=== PATIENT | male | born 1945 | race Caucasian/White ===

== ENCOUNTER 2017-05-04 00:35 | Inpatient (IN) | payer MEDICARE, MEDICAID ==
[2017-05-04] VITALS (21 sets, daily range): BP systolic 101–138; BP diastolic 50–71; PULSE 60–96; RESP 16–21; TEMP 98.2–100.4; O2SAT 93–98
[~2017-05-04] VITALS: Ht 180.3 cm; Wt 76.5 kg
[~2017-05-04 00:35] MED LIST: 1-ME1LIQ PO; ATEN1TAB73 PO; ENAL20TA81 PO; GEMF600 PO; GLUCTAB PO; HYDR-2768 PO; NORC7.5T PO; NOVO7030P2 SQ; SAXA5TAB2 PO
[2017-05-04] MEDS ORDERED: NOVO7030P2 SQ (01:08)
[2017-05-04] MEDS ORDERED: HYDR12.57 PO (01:08)
[2017-05-04] MEDS ORDERED: METF1000 PO (01:08)
[2017-05-04] MEDS ORDERED: ENAL20TA PO (01:08)
[2017-05-04] MEDS ORDERED: HEPARIN SODIUM - SQ 10,000 UNITS/ML VIAL SQ ONE (01:15)
[2017-05-04] MEDS ORDERED: HEPARIN-D5W 25,000 U/250 ML 250 ML IV PRN (01:15)
[2017-05-04] MEDS ORDERED: ASPIRIN 81 MG CHEW TAB CHEW ONE (01:15)
[2017-05-04] MEDS ORDERED: NITROGLYCERIN 2% OINT 1 GM PACKET TOPICAL ONE (01:15)
[2017-05-04] MEDS ORDERED: VANCOMYCIN INJ 1,000 MG in SODIUM CHLOR 0.9% 250 ML INJ 250 ML IV ONE (01:45)
[2017-05-04 01:47] LABS: HEMATOCRIT 41.2 % (39.0-51.0); MEAN CELL VOLUME 84.4 FL (80.0-100.0); MEAN CORPUSCULAR HEMOGLOBIN 28.8 PG (27.0-34.0); MEAN CORPUSCULAR HGB CONC 34.1 % (32.0-36.0); PLATELET COUNT 420 TH/MM3 (150-450); RED BLOOD COUNT 4.88 MIL/MM3 (4.50-5.90); RED CELL DISTRIBUTION WIDTH 14.2 % (11.6-17.2); REVIEW FLAG FINAL; WHITE BLOOD COUNT 18.5 TH/MM3 (4.0-11.0)
[2017-05-04 02:03] LABS: APTT (PATIENT) 28.6 SEC (24.3-30.1); INTERNATIONAL NORMALIZED RATIO 1.2 RATIO
[2017-05-04 02:04] LABS: BICARBONATE 30.9 MEQ/L (21.0-32.0); POTASSIUM 3.1 MEQ/L (3.5-5.1)
[2017-05-04] MEDS: HEPARIN-D5W 25,000 U/250 ML 250 ML IV PRN (03:28)
[2017-05-04] MEDS ORDERED: HEPARIN SODIUM - IV 2,000 UNITS/2 ML VIAL IV ONE (03:30)
--- NOTE | 2017-05-04 03:42 | PD ---
HPI Chief Complaint: Laceration/Skin Injury Time Seen by Provider: 00:47 Travel History International Travel<30 days: No Contact w/Intl Traveler<30days: No Traveled to known affect area: No History of Present Illness HPI Patient is a 71-year-old male with days venous-stasis pressure ulcer on the lateral aspect of his left ankle there is redness and an eschar where it's trying to heal as well as erythema all around the entire lower [place] area lateral aspect lower left. He called paramedics himself tonight because he had severe pain in his left ankle it was severe lightening shooting he described it. He denies chest pain he denies redness of breath he denies diaphoresis he denies nausea vomiting. On arrival his EKG is done with ST elevations in inferior leads. I immediately called the head silverman Dr. Francisco and he feels that it is not criteria for a STEMI and the patient is completely pain-free I go back to the patient's bedside and go to every possible abdomen pain chest pain back pain shortness of breath diaphoresis he denies all he has no symptoms of having acute MT PFSH Past Medical History COPD: Yes Diabetes: Yes Patient Takes Glucophage: Yes (METFORMIN 05/03/17 PM) Diminished Hearing: No Genitourinary: Yes (POLYNEPHRITIS ) Hypertension: Yes Immunizations Current: Yes Tetanus Vaccination: Unknown Influenza Vaccination: No Past Surgical History Other Surgery: Yes (SKIN CANCER REMOVAL SURGERY) Social History Alcohol Use: No Tobacco Use: Yes (2.5 PPD) Substance Use: No Allergies-Medications (Allergen,Severity, Reaction): Coded Allergies: codeine (Unverified Allergy, Severe, Rash, 05/04/17) propoxyphene (Unverified Allergy, Severe, Nausea/Vomiting, 05/04/17) acetaminophen (Verified Adverse Reaction, Mild, Tachycardia, 05/05/17) Patient given dose had SOB and Tachycardia that passed, previously got dose 05/04 AM without any reaction, 05/05 AM experienced the SOB and Tachycardia Reported Meds & Prescriptions Reported Meds & Active Scripts Active Reported Tizanidine (Tizanidine HCl) 4 Mg Cap 4 Mg PO HS Glipizide 5 Mg Tab 2.5 Mg PO BIDAC Take 30 minutes before a meal Tramadol (Tramadol HCl) 50 Mg Tab 50 Mg PO BID PRN Hydrochlorothiazide 25 Mg Tab 25 Mg PO DAILY Amlodipine (Amlodipine Besylate) 10 Mg Tab 10 Mg PO DAILY Novolin 70-30 Inj (Insulin Human Isoph/Insulin Regular) 1,000 Unit/10 Ml Vial 30 Units SQ BID Enalapril (Enalapril Maleate) 20 Mg Tab 20 Mg PO BID Metformin (Metformin HCl) 1,000 Mg Tab 1,000 Mg PO BIDPC Review of Systems Except as stated in HPI: all other systems reviewed are Neg HENT: No: Headaches, Vertigo, Lightheadedness, Sore Throat Cardiovascular: No: Chest Pain or Discomfort, Palpitations, Irregular Rhythm Respiratory: No: Cough, Shortness of Breath Gastrointestinal: No: Nausea, Vomiting, Diarrhea Musculoskeletal: No: Myalgias (patient only complains of lower left leg pain shooting burning pain) Physical Exam Narrative GENERAL: Patient is [id number] he has no pain he is asked multiple times. Chest pain abdomen pain back pain denies he does not appear to be any distress SKIN: Warm and dry. Ears a stasis pressure ulcer on the lateral aspect of his left lateral malleolus 3 cm round with erythema around it induration HEAD: Atraumatic. Normocephalic. EYES: Pupils equal and round. No scleral icterus. No injection or drainage. ENT: No nasal bleeding or discharge. Mucous membranes pink and moist. NECK: Trachea midline. No JVD. CARDIOVASCULAR: Regular rate and rhythm. RESPIRATORY: No accessory muscle use. Clear to auscultation. Breath sounds equal bilaterally. GASTROINTESTINAL: Abdomen soft, non-tender, nondistended. Hepatic and splenic margins not palpable. MUSCULOSKELETAL: Extremities left lateral malleolus has a pressure ulcer with a healing eschar in the center and redness indurated around it possible sialitis without clubbing, cyanosis, or edema. No obvious deformities. NEUROLOGICAL: Awake and alert. No obvious cranial nerve deficits. Motor grossly within normal limits. Five out of 5 muscle strength in the arms and legs. Normal speech. PSYCHIATRIC: Appropriate mood and affect; insight and judgment normal. Data Data Last Documented VS Vital Signs Date Time Temp Pulse Resp B/P (MAP) Pulse Ox O2 Delivery O2 Flow Rate FiO2 05/04/17 03:15 84 18 118/56 (76) 97 Room Air 05/04/17 00:37 99.8 Orders Orders Nitroglycerin 2% Oint (Nitroglycerin 2% (05/04/17 01:15) Aspirin Chew (Aspirin Chew) (05/04/17 01:15) Heparin Inj (Heparin Inj) (05/04/17 01:15) Heparin-D5w 25,000 U/250 Ml (Heparin-D5w (05/04/17 01:15) Act Partial Throm Time (Ptt) (05/04/17 01:05) Prothrombin Time / Inr (Pt) (05/04/17 01:05) Cbc No Diff, Includes Plts (05/04/17 01:05) Cbc No Diff, Includes Plts (05/07/17 06:00) Act Partial Throm Time (Ptt) (05/04/17 08:05) Occult Blood (Hemoccult) Stool (05/04/17 01:05) Basic Metabolic Panel (Bmp) (05/04/17 01:26) Troponin I (05/04/17 01:26) Creatine Kinase (Cpk) (05/04/17 01:26) Vancomycin Inj (Vancomycin Inj) (05/04/17 01:45) Heparin-D5w 25,000 U/250 Ml (Heparin-D5w (05/04/17 01:45) Occult Blood (Hemoccult) Stool (05/04/17 01:32) Heparin Inj (Heparin Inj) (05/04/17 03:30) Electrocardiogram (05/04/17 ) Troponin I (05/04/17 04:13) Admit Order (Ed Use Only) (05/04/17 04:25) Labs Laboratory Tests Test 05/04/17 01:20 05/04/17 04:19 White Blood Count 18.5 TH/MM3 Red Blood Count 4.88 MIL/MM3 Hemoglobin 14.0 GM/DL Hematocrit 41.2 % Mean Corpuscular Volume 84.4 FL Mean Corpuscular Hemoglobin 28.8 PG Mean Corpuscular Hemoglobin Concent 34.1 % Red Cell Distribution Width 14.2 % Platelet Count 420 TH/MM3 Mean Platelet Volume 8.8 FL Prothrombin Time 12.0 SEC Prothromb Time International Ratio 1.2 RATIO Activated Partial Thromboplast Time 28.6 SEC Blood Urea Nitrogen 24 MG/DL Creatinine 0.89 MG/DL Random Glucose 203 MG/DL Calcium Level 8.1 MG/DL Sodium Level 136 MEQ/L Potassium Level 3.1 MEQ/L Chloride Level 97 MEQ/L Carbon Dioxide Level 30.9 MEQ/L Anion Gap 8 MEQ/L Estimat Glomerular Filtration Rate 85 ML/MIN Total Creatine Kinase 62 U/L Troponin I 1.26 NG/ML 1.28 NG/ML [facility] Medical Decision Making Medical Screen Exam Complete: Yes Emergency Medical Condition: Yes Differential Diagnosis Patient has a venous stasis ulcer pressure ulcer with possible cellulitis however EKG done perchance shows inferior elevation in 3 and aVF with reciprocal depressions in 1 and aVL and V5 V6 correlating with a STEMI inferior lead I paged the intensive [facility] [employer] field inspector interventionalists who says that he does not feel this is criteria for catheter I heparinized the patient and give him aspirin and nitroglycerin to treat him medically to relieve any possible coagulations that are propagating and his vessels to his heart. Troponin returns at 1.26 I have had heparin and nitro and ASA given immediately and will repeat EKG and Trop admit CIC and call Francisco back to up date Narrative Course Patient has a venous stasis ulcer pressure ulcer with possible cellulitis however EKG done perchance shows inferior elevation in 3 and aVF with reciprocal depressions in 1 and aVL and V5 V6 correlating with a STEMI inferior lead I paged the intensive [facility] [employer] field inspector interventionalists who says that he does not feel this is criteria for catheter I heparinized the patient and give him aspirin and nitroglycerin to treat him medically to relieve any possible coagulations that are propagating and his vessels to his heart. Troponin returns at 1.26 I have had heparin and nitro and ASA given immediately and will repeat EKG and Trop admit CIC and call Francisco back to up date Critical Care Narrative EKG done perchance shows inferior elevation in 3 and aVF with reciprocal depressions in 1 and aVL and V5 V6 correlating with a STEMI inferior lead I paged the intensive [facility] [employer] field inspector interventionalists who says that he does not feel this is criteria for catheter I heparinized the patient and give him aspirin and nitroglycerin to treat him medically to relieve any possible coagulations that are propagating and his vessels to his heart. Troponin returns at 1.26 I have had heparin and nitro and ASA given immediately and will repeat EKG and Trop admit CIC and call Francisco back to up date Diagnosis Primary Impression: Acute myocardial infarction Qualified Codes: I21.3 - ST elevation (STEMI) myocardial infarction of unspecified site Additional Impressions: Venous stasis ulcer Qualified Codes: I83.023 - Varicose veins of left lower extremity with ulcer of ankle; L97.321 - Non-pressure chronic ulcer of left ankle limited to breakdown of skin Pressure ulcer Qualified Codes: L89.529 - Pressure ulcer of left ankle, unspecified stage Admitting Information Admitting Physician Requests: it Raphael Vieira MD May 04, 2017 03:42
[2017-05-04] MEDS ORDERED: ATORVASTATIN 80 MG TAB PO ONE (08:15)
[2017-05-04] MEDS ORDERED: SODIUM CHLORIDE 0.9% FLUSH 10 ML FLUSH IV FLUSH PRN (08:15)
[2017-05-04] MEDS ORDERED: POTASSIUM CHLORIDE 25 MEQ EFFERVESCENT TAB PO ONE (08:15)
[2017-05-04] MEDS ORDERED: MAGNESIUM HYDROXIDE SUSP 30 ML CUP PO PRN (08:15)
[2017-05-04] MEDS ORDERED: ONDANSETRON HCL 4 MG/2 ML VIAL IVP PRN (08:15)
[2017-05-04] MEDS ORDERED: NALOXONE HCL 0.4 MG/ML AMP IV PUSH PRN (08:15)
[2017-05-04] MEDS ORDERED: BISACODYL 10 MG SUPP RECTAL PRN (08:15)
[2017-05-04] MEDS ORDERED: SENNOSIDES 8.6 MG TAB PO PRN (08:15)
[2017-05-04] MEDS ORDERED: GLUCAGON 1 MG/ML VIAL OTHER PRN (08:15)
[2017-05-04] MEDS ORDERED: LACTULOSE SYRUP 20 GM/30 ML CUP PO PRN (08:15)
[2017-05-04] MEDS ORDERED: NITROGLYCERIN 0.4 MG SL 25 TABS/BTL SL PRN (08:15)
[2017-05-04] MEDS ORDERED: DEXTROSE 50% IN WATER 50 ML VIAL(D50) IV PUSH PRN (08:15)
[2017-05-04] MEDS ORDERED: MORPHINE SULFATE 2 MG/ML INJ IV PUSH PRN (08:15)
--- NOTE | 2017-05-04 08:37 | RADRPT ---
EXAM DATE/TIME: 05/04/2017 08:29 [facility] COMPARISON: No previous studies available for comparison. INDICATIONS : Fever. MEDICAL HISTORY : Chronic obstructive pulmonary disease. Hypertension Diabetes. SURGICAL HISTORY : Left hand surgery. ENCOUNTER: Initial ACUITY: 1 day PAIN SCORE: Non-responsive. LOCATION: Bilateral chest FINDINGS: A single view of the chest demonstrates the lungs to be symmetrically aerated without evidence of mas s, infiltrate or effusion. The cardiomediastinal contours are unremarkable. Osseous structures are intact. CONCLUSION: 1. Negative portable chest. Alexander Posada MD on May 04, 2017 at 8:35 Board Certified Radiologist. This report was verified electronically.
[2017-05-04] MEDS: SODIUM CHLORIDE 0.9% FLUSH 10 ML FLUSH IV FLUSH SCH ×2 (08:55→21:00)
[2017-05-04 09:23] LABS: APTT (PATIENT) 30.5 SEC (24.3-30.1)
[2017-05-04] MEDS: SODIUM CHLOR 0.9% 1000 ML INJ 1,000 ML IV SCH ×2 (09:31→18:02)
--- NOTE | 2017-05-04 09:49 | PD.CONS ---
HPI Consult Requested By Primary Care Physician Chito Wahl MD History of Present Illness 71-year-old male with a past medical history of DM, HTN who presented for left lower extremity swelling, ulcer, and pain. He is found to have EKG changes in the ED and STEMI fig washer was called, who recommended against any alert as patient has no anginal symptoms. The patient denies any chest pain, shortness of breath, nausea, diaphoresis. Doesn't exert himself much due to chronic back and left lower extremity pain. The patient denies any history of heart disease. He does continue to smoke. (Solomon Henderson) Review of Systems Negative except as stated in the history of present illness (Solomon Henderson) Past Family Social History Allergies: Coded Allergies: acetaminophen (Unverified Allergy, Severe, Nausea/Vomiting, 05/04/17) codeine (Unverified Allergy, Severe, Rash, 05/04/17) propoxyphene (Unverified Allergy, Severe, Nausea/Vomiting, 05/04/17) Past Medical History Hypertension Diabetes mellitus Past Surgical History Skin cancer removal Reported Medications Reported Meds & Active Scripts Active Reported Novolin 70-30 Inj (Insulin Human Isoph/Insulin Regular) 1,000 Unit/10 Ml Vial 30 Units SQ BID Enalapril (Enalapril Maleate) 20 Mg Tab 20 Mg PO BID Hydrochlorothiazide 12.5 Mg Cap 12.5 Mg PO DAILY Metformin (Metformin HCl) 1,000 Mg Tab 1,000 Mg PO BIDPC Active Ordered Medications Current Medications Medications (Trade) Dose Ordered Sig/Tatyana Route Start Time Stop Time Status Last Admin Heparin Sodium/ Dextrose 250 ml @ 9 mls/hr TITRATE PRN IV 05/04/17 01:45 05/04/17 03:28 Sodium Chloride 1,000 ml @ 100 mls/hr Q10H IV 05/04/17 08:02 05/04/17 09:31 (NS Flush) 2 ml UNSCH PRN IV FLUSH 05/04/17 08:15 (NS Flush) 2 ml BID IV FLUSH 05/04/17 09:00 (Tylenol) 650 mg Q4H PRN PO 05/04/17 08:15 (Zofran Inj) 4 mg Q6H PRN IVP 05/04/17 08:15 (Narcan Inj) 0.4 mg UNSCH PRN IV PUSH 05/04/17 08:15 (Kate-Colace) 1 tab BID PO 05/04/17 09:00 (Milk Of Magnesia Liq) 30 ml Q12H PRN PO 05/04/17 08:15 (Senokot) 17.2 mg Q12H PRN PO 05/04/17 08:15 (Dulcolax Supp) 10 mg DAILY PRN RECTAL 05/04/17 08:15 (Lactulose Liq) 30 ml DAILY PRN PO 05/04/17 08:15 (Morphine Inj) 2 mg Q3H PRN IV PUSH 05/04/17 08:15 (Ecotrin Ec) 81 mg DAILY PO 05/04/17 09:00 (Nitrostat Sl) 0.4 mg Q5M PRN SL 05/04/17 08:15 (D50w (Vial) Inj) 50 ml UNSCH PRN IV PUSH 05/04/17 08:15 (Glucagon Inj) 1 mg UNSCH PRN OTHER 05/04/17 08:15 (NovoLOG SUPPLEMENTAL SCALE) 1 ACHS SLIDING SCALE SQ 05/04/17 12:00 (Duoneb Neb) 1 ampule Q6HR NEB PRN NEB 05/04/17 08:15 Family History Denies family history of heart disease Social History Tobacco abuse (Solomon Henderson) Physical Exam Vital Signs Vital Signs Date Time Temp Pulse Resp B/P (MAP) Pulse Ox O2 Delivery O2 Flow Rate FiO2 05/04/17 09:01 87 16 113/56 (75) 98 05/04/17 05:00 88 20 104/50 (68) 96 Room Air 05/04/17 03:15 84 18 118/56 (76) 97 Room Air 05/04/17 00:37 99.8 94 21 138/71 (93) 97 Physical Exam GENERAL: Well-developed well-nourished. In no acute distress. NECK: No carotid bruits. No JVD. CARDIOVASCULAR: Regular rate and rhythm. No murmur appreciated. RESPIRATORY: No accessory muscle use. Clear to auscultation. Breath sounds equal bilaterally. MUSCULOSKELETAL: Left lower extremity with venous stasis skin changes, left ankle ulcer, 1+ edema, nonpalpable pedal and popliteal pulses. Right lower extremity with 2+ lower extremity pulses and no edema. NEUROLOGICAL: Awake and alert. Normal speech. Laboratory Laboratory Tests Test 05/04/17 01:20 05/04/17 04:19 05/04/17 08:38 05/04/17 09:25 White Blood Count 18.5 Red Blood Count 4.88 Hemoglobin 14.0 Hematocrit 41.2 Mean Corpuscular Volume 84.4 Mean Corpuscular Hemoglobin 28.8 Mean Corpuscular Hemoglobin Concent 34.1 Red Cell Distribution Width 14.2 Platelet Count 420 Mean Platelet Volume 8.8 Prothrombin Time 12.0 Prothromb Time International Ratio 1.2 Activated Partial Thromboplast Time 28.6 30.5 Blood Urea Nitrogen 24 Creatinine 0.89 Random Glucose 203 Calcium Level 8.1 Sodium Level 136 Potassium Level 3.1 Chloride Level 97 Carbon Dioxide Level 30.9 Anion Gap 8 Estimat Glomerular Filtration Rate 85 Total Creatine Kinase 62 Troponin I 1.26 1.28 Lactic Acid Level 1.4 (Solomon Henderson) Result Diagram: 05/04/17 0120 05/04/17 0120 Imaging Last Impressions Chest X-Ray 05/04/17 0000 Signed Impressions: Service Date/Time: Saturday, May 04, 2017 08:29 - CONCLUSION: 1. Negative portable chest. Alexander Posada MD (Solomon Henderson) Assessment and Plan Assessment and Plan 71-year-old male with a past medical history of DM, HTN who presented for left lower extremity swelling, ulcer, and pain. He is found to have EKG changes in the ED. EKG changes: Nonspecific changes not consistent with STEMI especially with no concerning anginal symptoms. Check echocardiogram to evaluate for any wall motion abnormalities. Troponin elevation: Troponin 1.2. Unclear etiology. Consider angiogram. Continue heparin for now. LLE ulcer: Diminished left lower extremity pulses, poor healing wound, likely underlying PAD. At this time we'll plan on peripheral study on Saturday. Discussed Condition With Dr. Melchor, Dr. Sharp (Solomon Henderson) Assessment and Plan abnormal EKG NSTEMI no chest pain + infection LLE poor circulation with PAD 2d echo continue IV antibiotics will need C and probable peripheral angiogram. tenatively Tues am to make sure no active infection. (Jonny Melchor MD) Solomon Henderson May 04, 2017 09:49 Jonny Melchor MD May 04, 2017 18:30
[2017-05-04 09:57] LABS: APTT (PATIENT) 40.3 SEC (24.3-30.1)
[2017-05-04 10:04] LABS: CALCIUM-PROTEIN CORRECTED 8.2 MG/DL (8.5-10.1); HDL CHOLESTEROL 24.1 MG/DL (40.0-60.0); LDL CHOLESTEROL 78 MG/DL (0-99)
[2017-05-04 10:46] LABS: BLOOD, URINE NEG (NEG); COMMENT (UR) CULT NOT INDICATED; CULTURE IF INDICATED CULT NOT INDICATED; GLUCOSE,URINE NEG (NEG); KETONE, URINE NEG (NEG); MUCUS URINE FEW /lpf (OCC); NITRITE,URINE NEG (NEG); URINE COLOR YELLOW (YELLW/STRAW)
[2017-05-04] MEDS: DOCUSATE SODIUM 50 MG/SENNA 8.6 MG TAB PO SCH ×2 (11:55→21:30)
[2017-05-04] MEDS: ASPIRIN EC 81 MG TABEC PO SCH (11:55)
[2017-05-04] MEDS: ACETAMINOPHEN 325 MG TAB PO PRN (11:59)
[2017-05-04] MEDS: INSULIN ASPART SUPPLEMENTAL SCALE SQ SCH ×3 (12:00→21:00)
[2017-05-04 12:59] LABS: HEMOGLOBIN A1b 2.5 %; HEMOGLOBIN Ao 80.1 %; HEMOGLOBIN LA1C 3.1 %; HEMOGLOBIN P3 4.5 %
--- NOTE | 2017-05-04 13:03 | EKG ---
Date Performed: 05/04/2017 Time Performed: 00:44:33 PTAGE: 71 years EKG: Normal Sinus rhythm with first degree AV block with occassional PACs ST elevation with Q-waves seen in leads V3 and aVF, cannot exclude that this is an acute inferior myocardial infarction There is ST depression in leads V1 and aVL, which may be reciprocal changes and there is T-wave inversions anterolaterally Anterosept al myocardial infarction of undetermined age PREVIOUS TRACING 09/13/11 Since previous tracing, the change of inferior myocardial infar ction of undetermined age but possibly acute are new changes. The ST-T changes are new. R-forces are worsened in leads V1-V3 compared to previous tracing and appears to be anterior myocardial infarction of undetermined age. Clinical correlation is recommended. DOCTOR: Karan Jeong Interpretating Date/Time 05/04/2017 13:02:36
--- NOTE | 2017-05-04 13:06 | EKG ---
Date Performed: 05/04/2017 Time Performed: 03:37:39 PTAGE: 71 years EKG: Sinus rhythm with first degree AV block with PACs Anteroseptal myocardial infarction of undetermined age Inferior myocardial infarction with some ST elevation seen in lead V3, aVF and Q-wave changes in leads V2, an d ST depression and T-wave changes in leads V1 and aVF, which may be reciprocal changes of acute myoc ardial infarction. PREVIOUS TRACING : 05/04/2017 Since previous tracing, T-wave inversions anterolaterally i n leads V4-V6 are more prominent. Clinical correlation is recommended. DOCTOR: Karan Jeong Interpretating Date/Time 05/04/2017 13:05:24
[2017-05-04] MEDS ORDERED: HYDR25TA5 PO (15:08)
[2017-05-04] MEDS ORDERED: GLIP5TAB8 PO (15:08)
[2017-05-04] MEDS ORDERED: AMLO10TA2 PO (15:08)
[2017-05-04] MEDS ORDERED: TRAM50TA PO (15:08)
[2017-05-04] MEDS ORDERED: TIZA4CAP3 PO (15:09)
[2017-05-04] MEDS ORDERED: VANCOMYCIN INJ 1,150 MG in SODIUM CHLOR 0.9% 250 ML INJ 250 ML IV SCH (15:15)
[2017-05-04] MEDS ORDERED: Vancomycin Consult Pharmacy 1 EA OTHER SCH (15:15)
[2017-05-04 15:46] LABS: MAGNESIUM 2.3 MG/DL (1.5-2.5)
--- NOTE | 2017-05-04 16:05 | RADRPT ---
EXAM DATE/TIME: 05/04/2017 15:27 [facility] COMPARISON: No previous studies available for comparison. INDICATIONS : Ankle pain. MEDICAL HISTORY : Diabetes mellitus type II. Chronic obstructive pulmonary disease. Hypertension. SURGICAL HISTORY : Left hand surgery. ENCOUNTER: Initial ACUITY: 1 day PAIN SCORE: 10/10 LOCATION: Left ankle. FINDINGS: Three view exam was performed of the left ankle. The bony structures are in normal alignment. No ev idence of fracture, dislocation, or soft tissue swelling. There some mild degenerative changes. The a nkle mortise is intact. No radiopaque foreign bodies are seen. Bony mineralization is normal. CONCLUSION: Mild degenerative type changes. Otherwise, unremarkable exam for patient's age. Lee Yao MD on May 04, 2017 at 16:03 Board Certified Radiologist. This report was verified electronically.
--- NOTE | 2017-05-04 16:09 | HHI.HP ---
HPI Service [facility] Hospitalists Primary Care Physician Chito Wahl MD Admission Diagnosis myocardial ischemia Diagnoses: Chief Complaint: Left ankle pain, open sore and redness Increasing generalized weakness Travel History International Travel<30 Days: No Contact w/Intl Traveler <30 Da: No Traveled to Known Affected Are: No Sepsis Criteria SIRS Criteria (2 or more): Heart rate over 90, WBC > 87564, < 4000 or > 10% bands Sepsis Criteria (SIRS+source): Infect source susp/known Criteria Outcome: Meets sepsis criteria History of Present Illness Written by Zabrina Donahue, acting as scribe for Dr. Sharp on 05/04/17 at 15: 36. This is a 71-year-old male with a past medical history significant for hypertension, diabetes and COPD with ongoing tobacco use who presents to [facility] ED with complaints of worsening infection in the left ankle. Patient states he began having pain and redness in the left ankle about 3 weeks ago that has been steadily increasing. He now has an open sore over the outside aspect of the ankle. He denies any previous history of a diabetic ulcer. He denies any injury to the ankle. He reports he normally ambulates unassisted but is having more difficulty getting around due to increasing weakness. Patient states he has not be eating well for the past several months and has begun drinking up to 7 cups of coffee daily. He denies any alcohol use. He smokes 2 packs of cigarettes a day. He does endorse night sweats. Incidentally while in the ED, patient was noted to have ST elevations in the inferior leads on EKG. Patient was noted to have an elevated troponin of 1.26. manager shipping Dr. 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 Patient was started on a heparin drip. He denies any complaints of chest pain, chest tightness or shortness of breath. Patient denies any cardiac history. He is on oxycodone for chronic pain and has opioid-induced constipation, but reports good bowel movements recently. Review of Systems Except as stated in HPI: all other systems reviewed are Neg Past Family Social History Past Medical History Hypertension Diabetes COPD with ongoing tobaccoism Past Surgical History Excision of melanoma from face Reported Medications Novolin 70-30 Inj (Insulin Human Isoph/Insulin Regular) 1,000 Unit/10 Ml Vial 30 Units SQ BID Enalapril (Enalapril Maleate) 20 Mg Tab 20 Mg PO BID Hydrochlorothiazide 12.5 Mg Cap 12.5 Mg PO DAILY Metformin (Metformin HCl) 1,000 Mg Tab 1,000 Mg PO BIDPC Allergies: Coded Allergies: acetaminophen (Unverified Allergy, Severe, Nausea/Vomiting, 05/04/17) codeine (Unverified Allergy, Severe, Rash, 05/04/17) propoxyphene (Unverified Allergy, Severe, Nausea/Vomiting, 05/04/17) Active Ordered Medications Current Medications Medications (Trade) Dose Ordered Sig/Tatyana Route Start Time Stop Time Status Last Admin Heparin Sodium/ Dextrose 250 ml @ 9 mls/hr TITRATE PRN IV 05/04/17 01:45 05/04/17 03:28 Sodium Chloride 1,000 ml @ 100 mls/hr Q10H IV 05/04/17 08:02 05/04/17 09:31 (NS Flush) 2 ml UNSCH PRN IV FLUSH 05/04/17 08:15 (NS Flush) 2 ml BID IV FLUSH 05/04/17 09:00 (Tylenol) 650 mg Q4H PRN PO 05/04/17 08:15 05/04/17 11:59 (Zofran Inj) 4 mg Q6H PRN IVP 05/04/17 08:15 (Narcan Inj) 0.4 mg UNSCH PRN IV PUSH 05/04/17 08:15 (Kate-Colace) 1 tab BID PO 05/04/17 09:00 05/04/17 11:55 (Milk Of Magnesia Liq) 30 ml Q12H PRN PO 05/04/17 08:15 (Senokot) 17.2 mg Q12H PRN PO 05/04/17 08:15 (Dulcolax Supp) 10 mg DAILY PRN RECTAL 05/04/17 08:15 (Lactulose Liq) 30 ml DAILY PRN PO 05/04/17 08:15 (Morphine Inj) 2 mg Q3H PRN IV PUSH 05/04/17 08:15 (Ecotrin Ec) 81 mg DAILY PO 05/04/17 09:00 05/04/17 11:55 (Nitrostat Sl) 0.4 mg Q5M PRN SL 05/04/17 08:15 (D50w (Vial) Inj) 50 ml UNSCH PRN IV PUSH 05/04/17 08:15 (Glucagon Inj) 1 mg UNSCH PRN OTHER 05/04/17 08:15 (NovoLOG SUPPLEMENTAL SCALE) 1 ACHS SLIDING SCALE SQ 05/04/17 12:00 (Duoneb Neb) 1 ampule Q6HR NEB PRN NEB 05/04/17 08:15 Pharmacy Profile Note 0 ml @ 0 mls/hr UNSCH OTHER 05/04/17 15:15 Vancomycin HCl 1150 mg/Sodium Chloride 261.5 ml @ 250 mls/hr Q12H IV 05/04/17 15:15 UNV Piperacillin Sod/ Tazobactam Sod 100 ml @ 200 mls/hr Q6HR IV 05/04/17 18:00 (Norvasc) 10 mg DAILY PO 05/05/17 09:00 (Vasotec) 20 mg BID PO 05/04/17 21:00 (Zanaflex) 4 mg HS PO 05/04/17 21:00 (NovoLIN 70/30 INJ) 15 units BID@08,17 SQ 05/04/17 17:00 Family History Patient denies any significant family medical history Social History Patient has a history of tobacco use of 2 packs per day. He denies any alcohol use or illicit drugs. Patient states he lives alone. Physical Exam Vital Signs Vital Signs Date Time Temp Pulse Resp B/P (MAP) Pulse Ox O2 Delivery O2 Flow Rate FiO2 05/04/17 15:09 98.2 60 18 120/64 (82) 94 05/04/17 13:03 88 05/04/17 12:00 86 05/04/17 11:56 100.4 88 116/60 (78) 94 05/04/17 11:00 87 05/04/17 10:14 99.3 84 19 117/56 (76) 93 05/04/17 09:01 87 16 113/56 (75) 98 05/04/17 05:00 88 20 104/50 (68) 96 Room Air 05/04/17 03:15 84 18 118/56 (76) 97 Room Air 12/9/17 00:37 99.8 94 21 138/71 (93) 97 Physical Exam GENERAL: This is a well-nourished, well-developed patient, in no apparent distress. Awake and alert. SKIN: Warm and slightly diaphoretic. (+)open wound over the left lateral malleolus with central eschar, no active drainage noted. Circumferential erythema extending from the mid foot to mid tibia. HEAD: Atraumatic. Normocephalic. No temporal or scalp tenderness. EYES: Pupils equal round and reactive. Extraocular motions intact. No scleral icterus. No injection or drainage. ENT: Nose without bleeding or purulent drainage. Throat without erythema, tonsillar hypertrophy or exudate. Uvula midline. Airway patent. NECK: Trachea midline. No lymphadenopathy. Supple, nontender, no meningeal signs. CARDIOVASCULAR: Regular rate and rhythm without murmurs, gallops, or rubs. RESPIRATORY: Clear to auscultation. Breath sounds equal bilaterally. No wheezes , rales, or rhonchi. GASTROINTESTINAL: Abdomen soft, non-tender, nondistended. No hepato-splenomegaly , or palpable masses. No guarding. MUSCULOSKELETAL: Extremities without clubbing, cyanosis, or edema. No joint tenderness, effusion, or edema noted. NEUROLOGICAL: Awake and alert. Able to move all extremities spontaneously. Generalized weakness. No focal neurologic findings appreciated. Normal speech. Laboratory Laboratory Tests Test 05/04/17 01:20 05/04/17 04:19 05/04/17 08:38 05/04/17 09:25 White Blood Count 18.5 Red Blood Count 4.88 Hemoglobin 14.0 Hematocrit 41.2 Mean Corpuscular Volume 84.4 Mean Corpuscular Hemoglobin 28.8 Mean Corpuscular Hemoglobin Concent 34.1 Red Cell Distribution Width 14.2 Platelet Count 420 Mean Platelet Volume 8.8 Prothrombin Time 12.0 Prothromb Time International Ratio 1.2 Activated Partial Thromboplast Time 28.6 30.5 40.3 Blood Urea Nitrogen 24 Creatinine 0.89 Random Glucose 203 Calcium Level 8.1 7.7 Sodium Level 136 Potassium Level 3.1 Chloride Level 97 Carbon Dioxide Level 30.9 Anion Gap 8 Estimat Glomerular Filtration Rate 85 Total Creatine Kinase 62 Troponin I 1.26 1.28 1.27 Lactic Acid Level 1.4 Hemoglobin A1c 7.3 Protein Corrected Calcium 8.2 Total Protein 6.2 Triglycerides Level 105 Cholesterol Level 123 LDL Cholesterol 78 HDL Cholesterol 24.1 Cholesterol/HDL Ratio 5.10 Test 05/04/17 10:15 05/04/17 13:50 Urine Color YELLOW Urine Turbidity HAZY Urine pH 5.0 Urine Specific [place] 1.016 Urine Protein 100 Urine Glucose (UA) NEG Urine Ketones NEG Urine Occult Blood NEG Urine Nitrite NEG Urine Bilirubin NEG Urine Urobilinogen LESS THAN 2.0 Urine Leukocyte Esterase NEG Urine RBC LESS THAN 1 Urine WBC 1 Urine Mucus FEW Microscopic Urinalysis Comment CULT NOT INDICATED Date/Time Source Procedure Growth Status 05/04/17 04:35 Blood Peripheral Aerobic Blood Culture Pending Received 05/04/17 04:35 Blood Peripheral Anaerobic Blood Culture Pending Received Result Diagram: 05/04/17 0120 05/04/17 0120 Imaging Last Impressions Chest X-Ray 05/04/17 0000 Signed Impressions: Service Date/Time: Thursday, May 04, 2017 08:29 - CONCLUSION: 1. Negative portable chest. MD Clover Serna VTE Risk Assessment Capjo-anni VTE Risk Assessment: Mod/High Risk (score >= 2) VTE [facility] Contraindication: LE injury/wound Caprini Risk Assessment Model Point Value = 1 Point Value = 2 Point Value = 3 Point Value = 5 Age 41-60 Minor surgery BMI > 25 kg/m2 Swollen legs Varicose veins or History of unexplained or recurrent spontaneous Oral contraceptives or hormone replacement Sepsis (< 1 month) Serious lung disease, including pneumonia (< 1 month) Abnormal pulmonary function Acute myocardial infarction Congestive heart failure (< 1 month) History of inflammatory bowel disease Medical patient at bed rest Age 61-74 Arthroscopic surgery Major open surgery (> 45 min) Laparoscopic surgery (> 45 min) Malignancy Confined to bed (> 72 hours) Immobilizing plaster cast Central venous access Age >= 75 History of VTE Family history of VTE Factor V Leiden Prothrombin [id number] Lupus anticoagulant Anticardiolipin antibodies Elevated serum homocysteine Heparin-induced thrombocytopenia Other congenital or acquired thrombophilia Stroke (< 1 month) Elective arthroplasty Hip, pelvis, or leg fracture Acute spinal cord injury (< 1 month) Prophylaxis Regimen Total Risk Factor Score Risk Level Prophylaxis Regimen 0-1 Low Early ambulation 2 Moderate Order ONE of the following: *Sequential Compression Device (SCD) *Heparin 5000 units SQ BID 3-4 Higher Order ONE of the following medications: *Heparin 5000 units SQ TID *Enoxaparin/Lovenox 40 mg SQ daily (WT < 150 kg, CrCl > 30 mL/min) *Enoxaparin/Lovenox 30 mg SQ daily (WT < 150 kg, CrCl > 10-29 mL/min) *Enoxaparin/Lovenox 30 mg SQ BID (WT < 150 kg, CrCl > 30 mL/min) AND/OR *Sequential Compression Device (SCD) 5 or more Highest Order ONE of the following medications: *Heparin 5000 units SQ TID (Preferred with Epidurals) *Enoxaparin/Lovenox 40 mg SQ daily (WT < 150 kg, CrCl > 30 mL/min) *Enoxaparin/Lovenox 30 mg SQ daily (WT < 150 kg, CrCl > 10-29 mL/min) *Enoxaparin/Lovenox 30 mg SQ BID (WT < 150 kg, CrCl > 30 mL/min) AND *Sequential Compression Device (SCD) Assessment and Plan Assessment and Plan Sepsis Patient meets sepsis criteria with elevated white count of 18.5, tachycardia with heart rate of 94 and source of left leg cellulitis and open diabetic left ankle ulcer. X ray of the left ankle is unremarkable. - Suspect underlying PAD. Discussed with cardiology who plans to perform peripheral study on Saturday. - Lactic acid sepsis protocol. - IV vancomycin and Zosyn. Consult pharmacy to dose. - wound culture and blood cultures pending. - consult wound care nurse. Consider podiatry consult. - IVFs. Elevated troponin/ ST segment elevation Cardiology consult appreciated. EKG with nonspecific ST changes without any cardiac complaints. Patient given aspirin in the ED. - continue ASA and statin. - Obtain lipid profile. - Continue on heparin drip for 48 hours. - Obtain echocardiogram. - telemetry. Generalized weakness Secondary to worsening infection and poor oral intake. - Consider dietary consult to maximize nutrition and wound healing. - PT eval/tx. - antibiotics. Hypertension Well controlled. - resume home dose of Norvasc 10mg daily, Enalapril 20mg BID. - Hold home dose of hydrochlorothiazide 25 mg daily for now. - Monitor blood pressure and adjust treatment accordingly. Diabetes Hemoglobin A1c 7.3%. - NPH 15u BID. - Accu-Cheks and insulin sliding scale. - Hold patient's home metformin, glipizide. Hypokalemia K 3.1. By mouth repletion given. - A.m. labs to monitor response. COPD With ongoing tobacco use. - discussed importance of smoking cessation. - DuoNeb's as needed. - We'll hold off on nicotine patch secondary to suspected underlying PAD. DVT prophylaxis - Patient on heparin drip Code Status Full Discussed Condition With Pt, nurse, Solomon Henderson This note was transcribed by aamir Donahue. I, Dr. Alexx Sharp personally performed the history, physical exam, and medical decision making; and confirmed the accuracy of the information in the transcribed note. Authenticated by Dr. Alexx Sharp on 05/04/17 at 16:34. Physician Certification 2 Midnight Certification Type: Admission for Inpatient Services Order for Inpatient Services The services are ordered in accordance with Medicare regulations or non- Medicare payer requirements, as applicable. In the case of services not specified as inpatient-only, they are appropriately provided as inpatient services in accordance with the 2-midnight benchmark. Estimated LOS (days): 3 3 days is the estimated time the patient will need to remain in the hospital, assuming treatment plan goals are met and no additional complications. Post-Hospital Plan: Not yet determined Zabrina Donahue May 04, 2017 16:09 Alexx Sharp DO May 04, 2017 16:34
[2017-05-04] MEDS: INSULIN HUMAN NPH/R 70/30 1,000 UNITS/10 ML VIAL SQ SCH (17:27)
[2017-05-04] MEDS: PIPERACIL-TAZO 4.5 GM PREMIX 100 ML IV SCH ×2 (18:15→23:15)
[2017-05-04] MEDS: RESP: ALBUTEROL 2.5 MG/IPRATROPIUM 0.5 MG NEB (PRN) NEB (20:53)
[2017-05-04] MEDS: ENALAPRIL MALEATE 10 MG TAB PO SCH (21:30)
[2017-05-04] MEDS ORDERED: VANCOMYCIN INJ 1,250 MG in SODIUM CHLOR 0.9% 250 ML INJ 250 ML IV SCH (22:00)
[2017-05-05] VITALS (27 sets, daily range): BP systolic 110–118; BP diastolic 56–69; PULSE 70–101; RESP 16–19; TEMP 97.5–99; O2SAT 88–97
[2017-05-05 00:44] LABS: APTT (PATIENT) 32.5 SEC (24.3-30.1)
[2017-05-05] MEDS: ACETAMINOPHEN 325 MG TAB PO PRN (03:15)
[2017-05-05] MEDS: SODIUM CHLOR 0.9% 1000 ML INJ 1,000 ML IV SCH (04:13)
[2017-05-05] MEDS: HEPARIN-D5W 25,000 U/250 ML 250 ML IV PRN (04:14)
[2017-05-05] MEDS: RESP: ALBUTEROL 2.5 MG/IPRATROPIUM 0.5 MG NEB (PRN) NEB ×2 (05:15→15:58)
[2017-05-05] MEDS: PIPERACIL-TAZO 4.5 GM PREMIX 100 ML IV SCH ×3 (05:36→17:25)
[2017-05-05 05:46] LABS: BLOOD GAS BASE EXCESS -0.2 mmol/L (-2-2); BLOOD GAS HCO3 24 mmol/L (22-26); BLOOD GAS METHEMOGLOBIN 1.2 % (0-2); BLOOD GAS O2 HGB SATURATION 92 % (90-100); BLOOD GAS OXYGEN CONTENT 22.2 Vol % (12.0-20.0); BLOOD GAS PCO2 36 mmHg (38-42); BLOOD GAS PO2 74 mmHg (61-120); BLOOD GAS TOTAL HGB 17.2 G/DL (12.0-16.0); TEMP CORR TO 98.6
[2017-05-05 05:47] LABS: CRITICAL VALUE NO; OXYGEN DEVICE NASAL CANNULA
[2017-05-05 05:48] LABS: DRAW SITE RT RADIAL; LITER FLOW 3 L/M; NUMBER OF ARTERIAL PUNCTURES 2; STAT YES; ULNAR PULSE PRESENT
[2017-05-05 07:14] LABS: AUTOMATED NEUTROPHIL # 20.5 TH/MM3 (1.8-7.7); BASOPHIL # 0.1 TH/MM3 (0-0.2); BASOPHIL % 0.3 % (0.0-2.0); EOSINOPHIL # 0.1 TH/MM3 (0-0.4); EOSINOPHIL % 0.4 % (0.0-4.0); HEMATOCRIT 39.2 % (39.0-51.0); HEMO FLAGS DIFF FINAL; LYMPH % 3.6 % (9.0-44.0); LYMPHOCYTE # 0.8 TH/MM3 (1.0-4.8); MEAN CELL VOLUME 86.1 FL (80.0-100.0); MEAN CORPUSCULAR HEMOGLOBIN 27.5 PG (27.0-34.0); NEUT % 89.7 % (16.0-70.0); PLATELET COUNT 389 TH/MM3 (150-450); RED BLOOD COUNT 4.55 MIL/MM3 (4.50-5.90); RED CELL DISTRIBUTION WIDTH 14.3 % (11.6-17.2); WHITE BLOOD COUNT 22.9 TH/MM3 (4.0-11.0)
[2017-05-05 07:36] LABS: APTT (PATIENT) 34.5 SEC (24.3-30.1)
[2017-05-05 07:38] LABS: ALKALINE PHOSPHATASE 114 U/L (45-117); ALT (GPT) 27 U/L (12-78); ANION GAP 8 MEQ/L (5-15); AST (GOT) 21 U/L (15-37); BICARBONATE 25.7 MEQ/L (21.0-32.0); BLOOD UREA NITROGEN 22 MG/DL (7-18); CHLORIDE 105 MEQ/L (98-107); GLOMERULAR FILTRATION RATE 93 ML/MIN (>89); MAGNESIUM 2.4 MG/DL (1.5-2.5); POTASSIUM 3.2 MEQ/L (3.5-5.1); SODIUM (NA) 139 MEQ/L (136-145); TOTAL BILIRUBIN ADULT 0.4 MG/DL (0.2-1.0)
[2017-05-05 07:40] LABS: INTERNATIONAL NORMALIZED RATIO 1.2 RATIO
[2017-05-05] MEDS: INSULIN ASPART SUPPLEMENTAL SCALE SQ SCH ×4 (08:00→21:02)
[2017-05-05] MEDS ORDERED: FUROSEMIDE 40 MG/4 ML VIAL IV PUSH ONE (09:00)
[2017-05-05] MEDS ORDERED: traMADol HCL 50 MG TAB PO PRN (09:00)
[2017-05-05] MEDS: DOCUSATE SODIUM 50 MG/SENNA 8.6 MG TAB PO SCH ×2 (09:00→20:58)
[2017-05-05] MEDS ORDERED: FUROSEMIDE 20 MG/2 ML VIAL IV PUSH ONE (09:00)
[2017-05-05] MEDS: SODIUM CHLORIDE 0.9% FLUSH 10 ML FLUSH IV FLUSH SCH ×2 (09:14→21:00)
[2017-05-05] MEDS: POTASSIUM CHLORIDE 20 MEQ CONTROLLED RELEASE TAB PO SCH ×2 (09:15→20:57)
[2017-05-05] MEDS: ENALAPRIL MALEATE 10 MG TAB PO SCH ×2 (09:15→20:58)
[2017-05-05] MEDS: INSULIN HUMAN NPH/R 70/30 1,000 UNITS/10 ML VIAL SQ SCH (09:15)
[2017-05-05] MEDS: ATORVASTATIN 40 MG TAB PO SCH (09:15)
[2017-05-05] MEDS: ASPIRIN EC 81 MG TABEC PO SCH (09:15)
--- NOTE | 2017-05-05 09:46 | HHI.PR ---
Subjective Remarks Follow-up for left lower extremity cellulitis, and NSTEMI. Patient is currently doing well. Denies any chest pain, shortness of breath, fever or chills. Objective Vitals Vital Signs Date Time Temp Pulse Resp B/P (MAP) Pulse Ox O2 Delivery O2 Flow Rate FiO2 05/05/17 06:17 83 05/05/17 05:18 92 Nasal Cannula 3.00 05/05/17 05:09 101 05/05/17 04:55 92 Nasal Cannula 3.00 05/05/17 04:00 88 Nasal Cannula 4.00 05/05/17 03:01 99.0 90 19 118/56 (76) 93 05/05/17 03:01 97 05/05/17 02:07 100 05/05/17 01:24 96 05/05/17 00:26 86 05/04/17 23:50 99.3 83 18 108/57 (74) 94 05/04/17 23:50 87 05/04/17 22:00 88 05/04/17 21:40 90 05/04/17 20:00 80 05/04/17 19:40 99.4 86 18 101/56 (71) 97 05/04/17 19:40 96 05/04/17 18:28 94 21 05/04/17 18:04 89 05/04/17 17:15 87 05/04/17 16:00 82 05/04/17 15:09 98.2 60 18 120/64 (82) 94 05/04/17 15:00 84 05/04/17 14:00 80 05/04/17 13:03 88 05/04/17 12:00 86 05/04/17 11:56 100.4 88 116/60 (78) 94 05/04/17 11:00 87 05/04/17 10:14 99.3 84 19 117/56 (76) 93 I/O 05/04/17 05/04/17 05/04/17 05/05/17 05/05/17 05/05/17 07:00 15:00 23:00 07:00 15:00 23:00 Intake Total 1085 ml 1140 ml 505 ml Output Total 250 ml 775 ml Balance 835 ml 365 ml 505 ml Intake Oral 480 ml 240 ml IV Total 605 ml 900 ml 505 ml Output Urine Total 250 ml 775 ml Result Diagram: 05/05/17 0650 05/05/17 0650 Imaging Last Impressions Chest X-Ray 05/04/17 0000 Signed Impressions: Service Date/Time: Thursday, May 04, 2017 08:29 - CONCLUSION: 1. Negative portable chest. Alexander Posada MD Ankle X-Ray 05/04/17 0000 Signed Impressions: Service Date/Time: Thursday, May 04, 2017 15:27 - CONCLUSION: Mild degenerative type changes. Otherwise, unremarkable exam for patient's age. Lee Yao MD Objective Remarks GENERAL: Alert, oriented 3, NAD. SKIN: Warm and dry. HEAD: Normocephalic. EYES: No scleral icterus. No injection or drainage. NECK: Supple, trachea midline. No JVD or lymphadenopathy. CARDIOVASCULAR: Regular rate and rhythm without murmurs, gallops, or rubs. RESPIRATORY: Breath sounds equal bilaterally. No accessory muscle use. GASTROINTESTINAL: Abdomen soft, non-tender, nondistended. MUSCULOSKELETAL: No cyanosis, or edema. Left lower extremity has erythematous skin changes in the lower part from ankle to below knee. Ankle area wrapped in dressing. BACK: Nontender without obvious deformity. No CVA tenderness. Procedures None A/P Assessment and Plan This is a 71-year-old male with a past medical history significant for hypertension, diabetes and COPD with ongoing tobacco use who presents to [facility] ED with complaints of worsening infection in the left ankle. Incidentally while in the ED, patient was noted to have ST elevations in the inferior leads on EKG. Patient was noted to have an elevated troponin of 1.26. 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 Patient was started on a heparin drip for NSTEMI. Sepsis Left lower ext cellulitis Diabetic foot ulcer - Patient met sepsis criteria with elevated white count of 18.5, tachycardia with heart rate of 94 and source of left leg cellulitis and open diabetic left ankle ulcer. - X ray of the left ankle is unremarkable. - Suspect underlying PAD. Discussed with cardiology who plans to perform peripheral study on Saturday05/06/2017. - Lactic acid 1.4 - IV vancomycin and Zosyn. Consult pharmacy to dose. If clinically improved , we will switch to PO abx on 05/06/2017. - wound culture and blood cultures pending. - consult wound care nurse. - Will consult podiatry. NSTEMI - Cardiology following. - continue ASA and statin. - Start Metoprolol 25mg BID. - Obtained lipid profile - total chol 123, LDL 78. - Continue on heparin drip for 48 hours. - Obtain echocardiogram. - telemetry. Hypertension - Continue Norvasc 5mg daily, Enalapril 20mg BID. - Hold home dose of hydrochlorothiazide 25 mg daily for now. - Monitor blood pressure and adjust treatment accordingly. Diabetes Mellitus. - Hemoglobin A1c 7.3%. - d/c NPH. Start Levemir 10 units QHS, continue sliding scale insulin with Aspart. May need pre-meal coverage. Hypokalemia - Potassium improved to 3.2. Will continue PO KCL. COPD With ongoing tobacco use. - Has been counselled regarding importance of smoking cessation. - DuoNeb's as needed. Full code. Heparin drip. Fernando Morris DO May 05, 2017 9:45 am
--- NOTE | 2017-05-05 10:30 | PD.CARD.PN ---
Subjective Subjective Remarks no complaints Objective Medications Current Medications Medications (Trade) Dose Ordered Sig/Tatyana Route Start Time Stop Time Status Last Admin Heparin Sodium/ Dextrose 250 ml @ 9 mls/hr TITRATE PRN IV 05/04/17 01:45 05/05/17 04:14 (NS Flush) 2 ml UNSCH PRN IV FLUSH 05/04/17 08:15 (NS Flush) 2 ml BID IV FLUSH 05/04/17 09:00 05/05/17 09:14 (Tylenol) 650 mg Q4H PRN PO 05/04/17 08:15 05/05/17 03:15 (Zofran Inj) 4 mg Q6H PRN IVP 05/04/17 08:15 (Narcan Inj) 0.4 mg UNSCH PRN IV PUSH 05/04/17 08:15 (Kate-Colace) 1 tab BID PO 05/04/17 09:00 05/04/17 21:30 (Milk Of Magnesia Liq) 30 ml Q12H PRN PO 05/04/17 08:15 (Senokot) 17.2 mg Q12H PRN PO 05/04/17 08:15 (Dulcolax Supp) 10 mg DAILY PRN RECTAL 05/04/17 08:15 (Lactulose Liq) 30 ml DAILY PRN PO 05/04/17 08:15 (Morphine Inj) 2 mg Q3H PRN IV PUSH 05/04/17 08:15 (Ecotrin Ec) 81 mg DAILY PO 05/04/17 09:00 05/05/17 09:15 (Nitrostat Sl) 0.4 mg Q5M PRN SL 05/04/17 08:15 (D50w (Vial) Inj) 50 ml UNSCH PRN IV PUSH 05/04/17 08:15 (Glucagon Inj) 1 mg UNSCH PRN OTHER 05/04/17 08:15 (NovoLOG SUPPLEMENTAL SCALE) 1 ACHS SLIDING SCALE SQ 05/04/17 12:00 05/05/17 08:00 Pharmacy Profile Note 0 ml @ 0 mls/hr UNSCH OTHER 05/04/17 15:15 Piperacillin Sod/ Tazobactam Sod 100 ml @ 200 mls/hr Q6HR IV 05/04/17 18:00 05/05/17 05:36 (Norvasc) 10 mg DAILY PO 05/05/17 09:00 05/05/17 09:15 (Vasotec) 20 mg BID PO 05/04/17 21:00 05/05/17 09:15 (Zanaflex) 4 mg HS PO 05/04/17 21:00 05/04/17 21:30 (NovoLIN 70/30 INJ) 15 units BID@,17 SQ 05/04/17 17:00 05/05/17 09:15 (Lipitor) 40 mg DAILY PO 05/05/17 09:00 05/05/17 09:15 (Duoneb Neb) 1 ampule Q4HR NEB PRN NEB 05/05/17 09:00 (Ultram) 50 mg Q8H PRN PO 05/05/17 09:00 (KCl) 20 meq Q12HR PO 05/05/17 09:00 05/10/17 08:59 05/05/17 09:15 (Lasix Inj) 20 mg BID@09,18 IV PUSH 05/05/17 18:00 Vancomycin HCl 1250 mg/Sodium Chloride 262.5 ml @ 250 mls/hr Q12H IV 05/05/17 11:00 Miscellaneous Information SPECIFIC LAB TO BE DRAWN:VANCO TROUGH DATE... ONCE ONCE .XX 05/06/17 10:45 05/06/17 10:46 Vital Signs / I&O Vital Signs Date Time Temp Pulse Resp B/P (MAP) Pulse Ox O2 Delivery O2 Flow Rate FiO2 05/05/17 06:17 83 05/05/17 05:18 92 Nasal Cannula 3.00 05/05/17 05:09 101 05/05/17 04:55 92 Nasal Cannula 3.00 05/05/17 04:00 88 Nasal Cannula 4.00 05/05/17 03:01 99.0 90 19 118/56 (76) 93 05/05/17 03:01 97 05/05/17 02:07 100 05/05/17 01:24 96 05/05/17 00:26 86 05/04/17 23:50 99.3 83 18 108/57 (74) 94 05/04/17 23:50 87 05/04/17 22:00 88 05/04/17 21:40 90 05/04/17 20:00 80 05/04/17 19:40 99.4 86 18 101/56 (71) 97 05/04/17 19:40 96 05/04/17 18:28 94 21 05/04/17 18:04 89 05/04/17 17:15 87 05/04/17 16:00 82 05/04/17 15:09 98.2 60 18 120/64 (82) 94 05/04/17 15:00 84 05/04/17 14:00 80 05/04/17 13:03 88 05/04/17 12:00 86 05/04/17 11:56 100.4 88 116/60 (78) 94 05/04/17 11:00 87 I/O 05/04/17 05/04/17 05/04/17 05/05/17 05/05/17 05/05/17 07:00 15:00 23:00 07:00 15:00 23:00 Intake Total 1085 ml 1140 ml 505 ml Output Total 250 ml 775 ml Balance 835 ml 365 ml 505 ml Intake Oral 480 ml 240 ml IV Total 605 ml 900 ml 505 ml Output Urine Total 250 ml 775 ml Physical Exam GENERAL: SKIN: Warm and dry. HEAD: Normocephalic. EYES: No scleral icterus. No injection or drainage. NECK: Supple, trachea midline. No JVD or lymphadenopathy. CARDIOVASCULAR: Regular rate and rhythm without murmurs, gallops, or rubs. RESPIRATORY: Breath sounds equal bilaterally. crakcles GASTROINTESTINAL: Abdomen soft, non-tender, nondistended. MUSCULOSKELETAL: No cyanosis, or edema. BACK: Nontender without obvious deformity. No CVA tenderness. Laboratory Laboratory Tests Test 05/04/17 13:50 05/04/17 15:32 05/04/17 23:44 05/05/17 00:00 Magnesium Level 2.3 MG/DL Troponin I 1.15 NG/ML Thyroid Stimulating Hormone 3rd Gen 0.823 uIU/ML Activated Partial Thromboplast Time 31.0 SEC 32.5 SEC Test 05/05/17 05:35 05/05/17 06:50 Blood Gas Puncture Site RT RADIAL Blood Gas Patient Temperature 98.6 Blood Gas HCO3 24 mmol/L Blood Gas Base Excess -0.2 mmol/L Blood Gas Oxygen Saturation 92 % Arterial Blood pH 7.43 Arterial Blood Partial Pressure CO2 36 mmHg Arterial Blood Partial Pressure O2 74 mmHg Arterial Blood Oxygen Content 22.2 Vol % Arterial Blood Carboxyhemoglobin 1.0 % Arterial Blood Methemoglobin 1.2 % Blood Gas Hemoglobin 17.2 G/DL Oxygen Delivery Device NASAL CANNULA Blood Gas Liter Flow 3 L/M White Blood Count 22.9 TH/MM3 Red Blood Count 4.55 MIL/MM3 Hemoglobin 12.5 GM/DL Hematocrit 39.2 % Mean Corpuscular Volume 86.1 FL Mean Corpuscular Hemoglobin 27.5 PG Mean Corpuscular Hemoglobin Concent 32.0 % Red Cell Distribution Width 14.3 % Platelet Count 389 TH/MM3 Mean Platelet Volume 8.3 FL Neutrophils (%) (Auto) 89.7 % Lymphocytes (%) (Auto) 3.6 % Monocytes (%) (Auto) 6.0 % Eosinophils (%) (Auto) 0.4 % Basophils (%) (Auto) 0.3 % Neutrophils # (Auto) 20.5 TH/MM3 Lymphocytes # (Auto) 0.8 TH/MM3 Monocytes # (Auto) 1.4 TH/MM3 Eosinophils # (Auto) 0.1 TH/MM3 Basophils # (Auto) 0.1 TH/MM3 CBC Comment DIFF FINAL Differential Comment Prothrombin Time 12.0 SEC Prothromb Time International Ratio 1.2 RATIO Activated Partial Thromboplast Time 34.5 SEC Blood Urea Nitrogen 22 MG/DL Creatinine 0.82 MG/DL Random Glucose 207 MG/DL Total Protein 5.9 GM/DL Albumin 1.5 GM/DL Calcium Level 8.0 MG/DL Magnesium Level 2.4 MG/DL Alkaline Phosphatase 114 U/L Aspartate Amino Transf (AST/SGOT) 21 U/L Alanine Aminotransferase (ALT/SGPT) 27 U/L Total Bilirubin 0.4 MG/DL Sodium Level 139 MEQ/L Potassium Level 3.2 MEQ/L Chloride Level 105 MEQ/L Carbon Dioxide Level 25.7 MEQ/L Anion Gap 8 MEQ/L Estimat Glomerular Filtration Rate 93 ML/MIN Random Vancomycin Level 11.0 COMMENT Imaging Last Impressions Chest X-Ray 05/04/17 0000 Signed Impressions: Service Date/Time: Thursday, May 04, 2017 08:29 - CONCLUSION: 1. Negative portable chest. Alexander Posada MD Ankle X-Ray 05/04/17 0000 Signed Impressions: Service Date/Time: Thursday, May 04, 2017 15:27 - CONCLUSION: Mild degenerative type changes. Otherwise, unremarkable exam for patient's age. Lee Yao MD Assessment and Plan Assessment and Plan abnormal EKG NSTEMI CHF + infection LLE poor circulation with PAD 2d echo continue IV antibiotics will need LHC and LLE peripheral angiogram. tentatively Tues am to make sure no active infection and breathing improved. Jonny Melchor MD May 05, 2017 10:30
[2017-05-05] MEDS: VANCOMYCIN INJ 1,250 MG in SODIUM CHLOR 0.9% 250 ML INJ 250 ML IV SCH (12:20)
--- NOTE | 2017-05-05 12:32 | EKG ---
Date Performed: 05/04/2017 Time Performed: 09:09:41 PTAGE: 71 years EKG: Anterior wall myocardial infarction of undetermined age Inferior myocardial infarction with ST elevation of about 1 mm in aVF and 1.5 mm in lead V3. There is some ST depression, which may be r eciprocal changes in leads V1 and aVL and anterolateral T-wave changes. This may be acute myocardial infarction on evolving vs. more of a chronic problem. PREVIOUS TRACING : 05/04/2017 03.37 Since previous tracing, no significant change. Clinic al correlation is recommended. DOCTOR: Karan Jeong Interpretating Date/Time 05/05/2017 12:31:06
--- NOTE | 2017-05-05 16:57 | ECHRPT ---
Indication: Cardiomyopathy CONCLUSIONS Technically difficult study The left ventricular systolic function is aehigtxw-kx-vmpzphl reduced with an estimated ejection fra ction in the range of 35-40%. Trace mitral valve regurgitation There is trace tricuspid valve regurgitation. BP: / HR: Rhythm: MEASUREMENTS (Male / Female) Normal Values Technical Quality:Technically difficult study 2D ECHO LV Diastolic Diameter PLAX 5.6 cm 4.2 - 5.9 / 3.9 - 5.3 cm LV Systolic Diameter PLAX 4.8 cm IVS Diastolic Thickness 1.1 cm 0.6 - 1.0 / 0.6 - 0.9 cm LVPW Diastolic Thickness 1.1 cm 0.6 - 1.0 / 0.6 - 0.9 cm LV Relative Wall Thickness 0.4 LVOT Diameter 2.1 cm LA Systolic Diameter LX 4.1 cm 3.0 - 4.0 / 2.7 - 3.8 cm LV Ejection Fraction MOD 4C 33.3 % LV Ejection Fraction 4C AL 34.5 % M-MODE Aortic Root Diameter MM 2.9 cm LA Systolic Diameter MM 4.0 cm LA Ao Ratio MM 1.4 AV Cusp Separation MM 1.7 cm DOPPLER AV Peak Velocity 84.7 cm/s AV Peak Gradient 2.9 mmHg LVOT Peak Velocity 78.0 cm/s LVOT Peak Gradient 2.4 mmHg AV Area Cont Eq pk 3.3 cm MV Area PHT 3.3 cm LV E' Lateral Velocity 8.6 cm/s LV E' Septal Velocity 4.0 cm/s FINDINGS LEFT VENTRICLE The left ventricular systolic function is lzzxixas-yc-jqxflqw reduced with an estimated ejection fra ction in the range of 35-40%. Normal left ventricular size. Wall thickness is normal. There was limited left ventricular wall motion assessment due to poor endocardial visualization. RIGHT VENTRICLE Normal right ventricular size and systolic function. LEFT ATRIUM The left atrial size is mildly dilated. RIGHT ATRIUM The right atrial size is normal. ATRIAL SEPTUM Normal atrial septal thickness. AORTA The aortic root and proximal ascending aorta are not well visualized. MITRAL VALVE Structurally normal mitral valve. Trace mitral valve regurgitation No mitral valve stenosis. Mild mitral annular calcification. AORTIC VALVE Trileaflet aortic valve. Diffuse calcification of the aortic valve. No aortic valve stenosis. No aortic valve regurgitation. TRICUSPID VALVE Structurally normal tricuspid valve. There is trace tricuspid valve regurgitation. No tricuspid valve stenosis. PERICARDIUM No pericardial effusion. Db Francisco DO (Electronically Signed) Final Date:05 May 2017 16:55
[2017-05-05 17:44] LABS: APTT (PATIENT) 32.7 SEC (24.3-30.1)
[2017-05-05] MEDS ORDERED: FUROSEMIDE 20 MG/2 ML VIAL IV PUSH SCH (18:00)
[2017-05-05] MEDS: METOPROLOL TARTRATE 25 MG TAB PO SCH (20:58)
[2017-05-05] MEDS: INSULIN DETEMIR 100 UNITS/ML VIAL SQ SCH (21:02)
[2017-05-06] VITALS (32 sets, daily range): BP systolic 120–137; BP diastolic 60–75; PULSE 69–102; RESP 16–20; TEMP 97.4–98.7; O2SAT 83–100
[2017-05-06] MEDS: RESP: ALBUTEROL 2.5 MG/IPRATROPIUM 0.5 MG NEB (PRN) NEB (00:18)
[2017-05-06 00:29] LABS: APTT (PATIENT) 40.5 SEC (24.3-30.1)
[2017-05-06 00:45] LABS: BLOOD GAS BASE EXCESS 0.2 mmol/L (-2-2); BLOOD GAS CARBOXYHEMOGLOBIN 0.6 % (0-4); BLOOD GAS HCO3 25 mmol/L (22-26); BLOOD GAS METHEMOGLOBIN 1.2 % (0-2); BLOOD GAS O2 HGB SATURATION 95 % (90-100); BLOOD GAS OXYGEN CONTENT 17.5 Vol % (12.0-20.0); BLOOD GAS PCO2 41 mmHg (38-42); BLOOD GAS PO2 94 mmHg (61-120); BLOOD GAS TOTAL HGB 13.1 G/DL (12.0-16.0); CRITICAL VALUE NO; LITER FLOW 15 L/M; TEMP CORR TO 98.6
[2017-05-06 00:46] LABS: DRAW SITE RT RADIAL; FIO2 100 %; NUMBER OF ARTERIAL PUNCTURES 1; STAT YES; ULNAR PULSE PRESENT
[2017-05-06] MEDS: VANCOMYCIN INJ 1,250 MG in SODIUM CHLOR 0.9% 250 ML INJ 250 ML IV SCH ×2 (01:56→11:00)
[2017-05-06] MEDS: PIPERACIL-TAZO 4.5 GM PREMIX 100 ML IV SCH ×4 (01:57→18:00)
--- NOTE | 2017-05-06 07:59 | PD.CARD.PN ---
Subjective Subjective Remarks No chest pain or palpitations. Patient still having left lower extremity pain and swelling. Patient had shortness of breath overnight requiring BiPAP, currently improved on 6 L nasal cannula. RN at bedside. Reportedly good urine output. (Solomon Henderson) Objective Medications Current Medications Medications (Trade) Dose Ordered Sig/Tatyana Route Start Time Stop Time Status Last Admin Heparin Sodium/ Dextrose 250 ml @ 9 mls/hr TITRATE PRN IV 05/04/17 01:45 05/05/17 04:14 (NS Flush) 2 ml UNSCH PRN IV FLUSH 05/04/17 08:15 05/05/17 17:26 (NS Flush) 2 ml BID IV FLUSH 05/04/17 09:00 05/05/17 09:14 (Tylenol) 650 mg Q4H PRN PO 05/04/17 08:15 05/05/17 03:15 (Zofran Inj) 4 mg Q6H PRN IVP 05/04/17 08:15 (Narcan Inj) 0.4 mg UNSCH PRN IV PUSH 05/04/17 08:15 (Kate-Colace) 1 tab BID PO 05/04/17 09:00 05/05/17 20:58 (Milk Of Magnesia Liq) 30 ml Q12H PRN PO 05/04/17 08:15 (Senokot) 17.2 mg Q12H PRN PO 05/04/17 08:15 (Dulcolax Supp) 10 mg DAILY PRN RECTAL 05/04/17 08:15 (Lactulose Liq) 30 ml DAILY PRN PO 05/04/17 08:15 (Morphine Inj) 2 mg Q3H PRN IV PUSH 05/04/17 08:15 (Ecotrin Ec) 81 mg DAILY PO 05/04/17 09:00 05/05/17 09:15 (Nitrostat Sl) 0.4 mg Q5M PRN SL 05/04/17 08:15 (D50w (Vial) Inj) 50 ml UNSCH PRN IV PUSH 05/04/17 08:15 (Glucagon Inj) 1 mg UNSCH PRN OTHER 05/04/17 08:15 (NovoLOG SUPPLEMENTAL SCALE) 1 ACHS SLIDING SCALE SQ 05/04/17 12:00 05/05/17 21:02 Pharmacy Profile Note 0 ml @ 0 mls/hr UNSCH OTHER 05/04/17 15:15 Piperacillin Sod/ Tazobactam Sod 100 ml @ 200 mls/hr Q6HR IV 05/04/17 18:00 05/06/17 06:55 (Vasotec) 20 mg BID PO 05/04/17 21:00 05/05/17 20:58 (Zanaflex) 4 mg HS PO 05/04/17 21:00 05/05/17 20:58 (Lipitor) 40 mg DAILY PO 05/05/17 09:00 05/05/17 09:15 (Duoneb Neb) 1 ampule Q4HR NEB PRN NEB 05/05/17 09:00 05/06/17 00:18 (Ultram) 50 mg Q8H PRN PO 05/05/17 09:00 (KCl) 20 meq Q12HR PO 05/05/17 09:00 05/10/17 08:59 05/05/17 20:57 (Lasix Inj) 20 mg BID@09,18 IV PUSH 05/05/17 18:00 05/05/17 17:26 Vancomycin HCl 1250 mg/Sodium Chloride 262.5 ml @ 250 mls/hr Q12H IV 05/05/17 11:00 05/06/17 01:56 Miscellaneous Information SPECIFIC LAB TO BE DRAWN:VANCO TROUGH DATE... ONCE ONCE .XX 05/06/17 10:45 05/06/17 10:46 (Norvasc) 5 mg DAILY PO 05/06/17 09:00 (Levemir Inj) 10 units HS SQ 05/05/17 21:00 05/05/17 21:02 (Lopressor) 25 mg Q12HR PO 05/05/17 21:00 05/05/17 20:58 Vital Signs / I&O Vital Signs Date Time Temp Pulse Resp B/P (MAP) Pulse Ox O2 Delivery O2 Flow Rate FiO2 05/06/17 07:26 99 Non-Rebreather 100 05/06/17 06:00 76 05/06/17 05:00 74 05/06/17 04:52 98.7 73 16 120/60 (80) 96 05/06/17 04:00 76 05/06/17 03:40 95 40 05/06/17 03:00 77 05/06/17 02:00 72 05/06/17 01:00 74 05/06/17 00:44 96 40 05/06/17 00:23 98.6 79 16 128/69 (88) 83 05/06/17 00:00 84 05/05/17 23:00 75 05/05/17 22:00 70 05/05/17 21:00 92 05/05/17 20:30 98.6 91 18 118/65 (82) 91 05/05/17 20:00 90 05/05/17 19:00 87 05/05/17 18:02 85 05/05/17 17:04 87 05/05/17 15:59 91 Nasal Cannula 3.00 05/05/17 15:52 98.3 95 19 115/64 (81) 88 05/05/17 15:00 90 05/05/17 14:00 92 05/05/17 13:00 96 05/05/17 12:39 97 Nasal Cannula 3.00 05/05/17 12:00 98.1 86 19 110/63 (79) 92 05/05/17 12:00 84 05/05/17 11:00 90 05/05/17 10:00 88 05/05/17 09:00 78 05/05/17 08:00 74 I/O 05/05/17 05/05/17 05/05/17 05/06/17 05/06/17 05/06/17 07:00 15:00 23:00 07:00 15:00 23:00 Intake Total 1140 ml 610 ml 1350 ml 240 ml Output Total 775 ml 1150 ml 310 ml Balance 365 ml 610 ml 200 ml -70 ml Intake Oral 240 ml 960 ml 240 ml IV Total 900 ml 610 ml 390 ml Output Urine Total 775 ml 1150 ml 310 ml Stool Total 0 ml # Bowel Movements 0 Physical Exam GENERAL: Well-developed well-nourished. In no acute distress. NECK: No carotid bruits. No JVD. CARDIOVASCULAR: Regular rate and rhythm. No murmur appreciated. RESPIRATORY: No accessory muscle use. Bibasilar crackles. MUSCULOSKELETAL: Left lower extremity with venous stasis skin changes, left ankle ulcer, 1+ edema, nonpalpable pedal and popliteal pulses. Right lower extremity with 2+ lower extremity pulses and no edema. NEUROLOGICAL: Awake and alert. Normal speech. Laboratory Laboratory Tests Test 05/05/17 16:51 05/05/17 23:52 05/06/17 00:22 Activated Partial Thromboplast Time 32.7 SEC 40.5 SEC Blood Gas Puncture Site RT RADIAL Blood Gas Patient Temperature 98.6 Blood Gas HCO3 25 mmol/L Blood Gas Base Excess 0.2 mmol/L Blood Gas Oxygen Saturation 95 % Arterial Blood pH 7.40 Arterial Blood Partial Pressure CO2 41 mmHg Arterial Blood Partial Pressure O2 94 mmHg Arterial Blood Oxygen Content 17.5 Vol % Arterial Blood Carboxyhemoglobin 0.6 % Arterial Blood Methemoglobin 1.2 % Blood Gas Hemoglobin 13.1 G/DL Oxygen Delivery Device Non-Rebreathing Mask Blood Gas Liter Flow 15 L/M Blood Gas Inspired Oxygen 100 % Imaging Last Impressions Chest X-Ray 05/04/17 0000 Signed Impressions: Service Date/Time: Thursday, May 04, 2017 08:29 - CONCLUSION: 1. Negative portable chest. Alexander Posada MD Ankle X-Ray 05/04/17 0000 Signed Impressions: Service Date/Time: Thursday, May 04, 2017 15:27 - CONCLUSION: Mild degenerative type changes. Otherwise, unremarkable exam for patient's age. Lee Yao MD (Solomon Henderson) Assessment and Plan Assessment and Plan 71-year-old male with a past medical history of DM, HTN who presented for left lower extremity swelling, ulcer, and pain. He was found to have EKG changes in the ED. abnormal EKG/NSTEMI: Will need LHC. Acute systolic CHF: Echo with reduced systolic function, EF 30-40 %. BNP 1100. Increase Lasix to 40 mg twice a day. + infection LLE/poor circulation with PAD: continue IV antibiotics. Podiatry has been consulted. Will need LLE peripheral angiogram, tentatively Tues am to make sure no active infection and breathing improved. (Solomon Henderson) Assessment and Plan CHF - IV diuretic NSTEMI - LHC possible tomorrow PAD - peripheral angio possible tomorrow (Jonny Melchor MD) Solomon Henderson May 06, 2017 07:59 Jonny Melchor MD May 06, 2017 16:15
[2017-05-06] MEDS: INSULIN ASPART SUPPLEMENTAL SCALE SQ SCH ×4 (08:00→22:15)
[2017-05-06] MEDS: SODIUM CHLORIDE 0.9% FLUSH 10 ML FLUSH IV FLUSH SCH ×2 (09:00→22:17)
[2017-05-06] MEDS: POTASSIUM CHLORIDE 20 MEQ CONTROLLED RELEASE TAB PO SCH ×2 (09:00→22:16)
--- NOTE | 2017-05-06 09:42 | HHI.PR ---
Subjective Remarks f/u; NSTEMI/ left foot infection in no acute distress- however with sob and now on six liters of oxygen via N/C. denies chest pain. no fever. d/w the RN. Objective Vitals Vital Signs Date Time Temp Pulse Resp B/P (MAP) Pulse Ox O2 Delivery O2 Flow Rate FiO2 05/06/17 07:26 99 Non-Rebreather 100 05/06/17 06:00 76 05/06/17 05:00 74 05/06/17 04:52 98.7 73 16 120/60 (80) 96 05/06/17 04:00 76 05/06/17 03:40 95 40 05/06/17 03:00 77 05/06/17 02:00 72 05/06/17 01:00 74 05/06/17 00:44 96 40 05/06/17 00:23 98.6 79 16 128/69 (88) 83 05/06/17 00:00 84 05/05/17 23:00 75 05/05/17 22:00 70 05/05/17 21:00 92 05/05/17 20:30 98.6 91 18 118/65 (82) 91 05/05/17 20:00 90 05/05/17 19:00 87 05/05/17 18:02 85 05/05/17 17:04 87 05/05/17 15:59 91 Nasal Cannula 3.00 05/05/17 15:52 98.3 95 19 115/64 (81) 88 05/05/17 15:00 90 05/05/17 14:00 92 05/05/17 13:00 96 05/05/17 12:39 97 Nasal Cannula 3.00 05/05/17 12:00 98.1 86 19 110/63 (79) 92 05/05/17 12:00 84 05/05/17 11:00 90 05/05/17 10:00 88 I/O 05/05/17 05/05/17 05/05/17 05/06/17 05/06/17 05/06/17 06:59 14:59 22:59 06:59 14:59 22:59 Intake Total 1140 ml 610 ml 1350 ml 240 ml Output Total 775 ml 1150 ml 310 ml Balance 365 ml 610 ml 200 ml -70 ml Intake Oral 240 ml 960 ml 240 ml IV Total 900 ml 610 ml 390 ml Output Urine Total 775 ml 1150 ml 310 ml Stool Total 0 ml # Bowel Movements 0 Result Diagram: 05/05/17 0650 05/05/17 0650 Imaging Last Impressions Chest X-Ray 05/04/17 0000 Signed Impressions: Service Date/Time: Thursday, May 04, 2017 08:29 - CONCLUSION: 1. Negative portable chest. Alexander Posada MD Ankle X-Ray 05/04/17 0000 Signed Impressions: Service Date/Time: Thursday, May 04, 2017 15:27 - CONCLUSION: Mild degenerative type changes. Otherwise, unremarkable exam for patient's age. Lee Yao MD Objective Remarks GENERAL: with some sob. CARDIOVASCULAR: Regular rate and regular rhythm without murmurs, gallops, or rubs. RESPIRATORY: Clear to auscultation. Breath sounds equal bilaterally. No wheezes , rales, or rhonchi. GASTROINTESTINAL: Abdomen soft, non-tender, nondistended. Normal, active bowel sounds MUSCULOSKELETAL: Extremities with an ulcer on the left ankle with some surrounding erythema. NEURO: Alert & Oriented x4 to person, place, time, situation. Moves all ext x4 Procedures None Medications and IVs Inpatient Medications Acetaminophen (Tylenol) 650 mg Q4H PRN PO temp > 100.4 Last administered on 03:15; Start 05/04/17 at 08:15 Albuterol/ Ipratropium (Duoneb Neb) 1 ampule Q4HR NEB PRN NEB Cough, dyspnea, wheezing Last administered on 05/06/17 00:18; Start 05/05/17 at 09:00 Amlodipine Besylate (Norvasc) 5 mg DAILY PO ; Start 05/06/17 at 09:00 Aspirin (Aspirin Chew) 324 mg ONCE ONCE CHEW Last administered on 05/04/17 01 :08; Start 05/04/17 at 01:15; Stop 05/04/17 at 01:16; Status DC Aspirin (Ecotrin Ec) 81 mg DAILY PO Last administered on 05/05/17 09:15; Start 05/04/17 at 09:00 Atorvastatin Calcium (Lipitor) 40 mg DAILY PO Last administered on 05/05/17 09:15; Start 05/05/17 at 09:00 Bisacodyl (Dulcolax Supp) 10 mg DAILY PRN RECTAL SEVERE CONSITIPATION; Start 05/04/17 at 08:15 Dextrose (D50w (Vial) Inj) 50 ml UNSCH PRN IV PUSH HYPOGLYCEMIA-SEE COMMENTS; Start 05/04/17 at 08:15 Enalapril Maleate (Vasotec) 20 mg BID PO Last administered on 05/05/17 20:58 ; Start 05/04/17 at 21:00 Furosemide (Lasix Inj) 40 mg BID@0900,1800 IV PUSH ; Start 05/06/17 at 09:00 Glucagon (Glucagon Inj) 1 mg UNSCH PRN OTHER HYPOGLYCEMIA-SEE COMMENTS; Start 05/04/17 at 08:15 Heparin Sodium (Porcine) (Heparin Inj) 4,000 units ONCE ONCE IV Last administered on 05/04/17 03:39; Start 05/04/17 at 03:30; Stop 05/04/17 at 03:32 ; Status DC Heparin Sodium/ Dextrose 250 ml @ 9 mls/hr TITRATE PRN IV Coagulation Management Last administered on 05/05/17 04:14; Start 05/04/17 at 01:45 Insulin Aspart (NovoLOG SUPPLEMENTAL SCALE) 1 ACHS SLIDING SCALE SQ Last administered on 05/05/17 21:02; Start 05/04/17 at 12:00 Insulin Detemir (Levemir Inj) 10 units HS SQ Last administered on 05/05/17 21 :02; Start 05/05/17 at 21:00 Insulin Human Isoph/Insulin Regular (NovoLIN 70/30 INJ) 15 units BID@08,17 SQ Last administered on 05/05/17 09:15; Start 05/04/17 at 17:00; Stop 05/05/17 at 14:30; Status DC Lactulose (Lactulose Liq) 30 ml DAILY PRN PO SEVERE CONSITIPATION; Start at 08:15 Magnesium Hydroxide (Milk Of Magnesia Liq) 30 ml Q12H PRN PO Mild constipation ; Start 05/04/17 at 08:15 Metoprolol Tartrate (Lopressor) 25 mg Q12HR PO Last administered on 05/05/17 20:58; Start 05/05/17 at 21:00 Miscellaneous Information SPECIFIC LAB TO BE DRAWN:VANCO TROUGH DATE... ONCE ONCE .XX ; Start 05/06/17 at 10:45; Stop 05/06/17 at 10:46 Morphine Sulfate (Morphine Inj) 2 mg Q3H PRN IV PUSH Chest pain ; Start at 08:15 Naloxone HCl (Narcan Inj) 0.4 mg UNSCH PRN IV PUSH SEE LABEL COMMENTS; Start 05/04/17 at 08:15 Nitroglycerin (Nitroglycerin 2% Oint) 1 inch ONCE ONCE TOPICAL Last administered on 05/04/17 01:08; Start 05/04/17 at 01:15; Stop 05/04/17 at 01:16 ; Status DC Nitroglycerin (Nitrostat Sl) 0.4 mg Q5M PRN SL CHEST PAIN; Start 05/04/17 at 08 :15 Ondansetron HCl (Zofran Inj) 4 mg Q6H PRN IVP NAUSEA OR VOMITING; Start at 08:15 Pharmacy Profile Note 0 ml @ 0 mls/hr UNSCH OTHER ; Start 05/04/17 at 15:15 Piperacillin Sod/ Tazobactam Sod 100 ml @ 200 mls/hr Q6HR IV Last administered on 05/06/17 06:55; Start 05/04/17 at 18:00 Potassium Bicarb/ Potassium Chloride (K-Lyte Cl Eff) 50 meq ONCE ONCE PO Last administered on 05/04/17 09:53; Start 05/04/17 at 08:15; Stop 05/04/17 at 08:27; Status DC Potassium Chloride (KCl) 20 meq Q12HR PO Last administered on 05/05/17 20:57 ; Start 05/05/17 at 09:00; Stop 05/10/17 at 08:59 Senna/Docusate Sodium (Kate-Colace) 1 tab BID PO Last administered on 20:58; Start 05/04/17 at 09:00 Sennosides (Senokot) 17.2 mg Q12H PRN PO Moderate constipation; Start 05/04/17 at 08:15 Sodium Chloride (NS Flush) 2 ml BID IV FLUSH Last administered on 05/05/17 09 :14; Start 05/04/17 at 09:00 Tizanidine HCl (Zanaflex) 4 mg HS PO Last administered on 05/05/17 20:58; Start 05/04/17 at 21:00 Tramadol HCl (Ultram) 50 mg Q8H PRN PO PAIN SCALE 5 TO 10; Start 05/05/17 at 09:00 Vancomycin HCl 1000 mg/Sodium Chloride 250 ml @ 250 mls/hr ONCE ONCE IV Last administered on 05/04/17 03:03; Start 05/04/17 at 01:45; Stop 05/04/17 at 02:44 ; Status DC Vancomycin HCl 1150 mg/Sodium Chloride 261.5 ml @ 250 mls/hr Q12H IV ; Start 05/04/17 at 15:15; Stop 05/04/17 at 16:01; Status DC Vancomycin HCl 1250 mg/Sodium Chloride 262.5 ml @ 250 mls/hr Q12H IV Last administered on 05/06/17 01:56; Start 05/05/17 at 11:00 A/P Assessment and Plan A/P Sepsis Left lower ext cellulitis Diabetic foot ulcer - Patient met sepsis criteria with elevated white count of 18.5, tachycardia with heart rate of 94 and source of left leg cellulitis and open diabetic left ankle ulcer. - X ray of the left ankle is unremarkable. - Suspect underlying PAD. Discussed with cardiology who plans to perform peripheral study . - IV vancomycin and Zosyn. Consult pharmacy to dose. will monitor the response. - follow wound culture and blood cultures. - consulted wound care nurse. - consulted podiatry. NSTEMI - Cardiology following. - continue ASA and statin. - Started Metoprolol 25mg BID. - Obtained lipid profile - total chol 123, LDL 78. - Continue on heparin drip for 48 hours. - echo with EF 35% - telemetry. Hypertension - Continue Norvasc 5mg daily, Enalapril 20mg BID. - Hold home dose of hydrochlorothiazide 25 mg daily for now. - Monitor blood pressure and adjust treatment accordingly. Diabetes Mellitus. - Hemoglobin A1c 7.3%. - d/c'ed NPH. Start Levemir 10 units QHS, continue sliding scale insulin with Aspart. May need pre-meal coverage. Hypokalemia - Potassium improved to 3.2. Will continue PO KCL. COPD- now with persistent SOB With ongoing tobacco use. - Has been counselled regarding importance of smoking cessation. - DuoNeb's as needed. -repeat CXR and check ABG today. Full code. Heparin drip. Discharge Planning not ready for discharge- cardiac w/u in progress- awaiting podiatry evaluation. Annette Fontenot MD May 06, 2017 09:42
[2017-05-06] MEDS: DOCUSATE SODIUM 50 MG/SENNA 8.6 MG TAB PO SCH ×2 (10:26→22:16)
[2017-05-06] MEDS: ASPIRIN EC 81 MG TABEC PO SCH (10:27)
[2017-05-06] MEDS: FUROSEMIDE 40 MG/4 ML VIAL IV PUSH SCH ×2 (10:27→18:00)
[2017-05-06] MEDS: ATORVASTATIN 40 MG TAB PO SCH (10:27)
[2017-05-06] MEDS: ENALAPRIL MALEATE 10 MG TAB PO SCH ×2 (10:28→22:16)
[2017-05-06] MEDS: METOPROLOL TARTRATE 25 MG TAB PO SCH ×2 (10:28→22:16)
[2017-05-06] MEDS ORDERED: PHARMACY ORDERED LAB ONE (10:45)
[2017-05-06 10:53] LABS: BLOOD GAS BASE EXCESS 2.6 mmol/L (-2-2); BLOOD GAS CARBOXYHEMOGLOBIN 0.7 % (0-4); BLOOD GAS HCO3 26 mmol/L (22-26); BLOOD GAS METHEMOGLOBIN 1.2 % (0-2); BLOOD GAS O2 HGB SATURATION 91 % (90-100); BLOOD GAS OXYGEN CONTENT 16.6 Vol % (12.0-20.0); BLOOD GAS PCO2 37 mmHg (38-42); BLOOD GAS PO2 68 mmHg (61-120); BLOOD GAS TOTAL HGB 12.9 G/DL (12.0-16.0); CRITICAL VALUE NO; DRAW SITE LT RADIAL; LITER FLOW 6 L/M; NUMBER OF ARTERIAL PUNCTURES 1; OXYGEN DEVICE NASAL CANNULA; STAT NO; TEMP CORR TO 98.6; ULNAR PULSE PRESENT
--- NOTE | 2017-05-06 10:55 | RADRPT ---
EXAM DATE/TIME: 05/06/2017 10:19 [facility] COMPARISON: CHEST SINGLE AP, May 04, 2017, 8:29. INDICATIONS : Shortness of breath. MEDICAL HISTORY : Hypertension. Chronic obstructive pulmonary disease. Diabetes mellitus type II. SURGICAL HISTORY : None. ENCOUNTER: Initial ACUITY: 3 days PAIN SCORE: 4/10 LOCATION: chest FINDINGS: A single view of the chest demonstrates acute development of central and perihilar interstitial vascu lar prominence. Patchy airspace disease is seen in the bases. Heart is normal in size. CONCLUSION: Acute central and perihilar interstitial vascular prominence characteristic of pulmonary edema. Mild patchy airspace disease in the bases. Dylan Shipman MD on May 06, 2017 at 10:50 Board Certified Radiologist. This report was verified electronically.
[2017-05-06 11:29] LABS: APTT (PATIENT) 34.9 SEC (24.3-30.1)
[2017-05-06 18:46] LABS: APTT (PATIENT) 32.4 SEC (24.3-30.1)
[2017-05-06] MEDS: INSULIN DETEMIR 100 UNITS/ML VIAL SQ SCH (22:17)
[2017-05-06] MEDS: HEPARIN-D5W 25,000 U/250 ML 250 ML IV PRN (22:41)
[2017-05-06] MEDS: VANCOMYCIN 1,000 MG/NS 250 ML IV SCH ×2 (23:00)
[2017-05-07] VITALS (26 sets, daily range): BP systolic 120–141; BP diastolic 63–84; PULSE 66–112; RESP 14–24; TEMP 97.5–98.5; O2SAT 93–98
--- NOTE | 2017-05-07 00:08 | PD.CONS ---
History of Present Illness Service Foot and Ankle Surgery/Podiatry Consult Requested By Reason for Consult Right dorsal digit ulcers, Left 5th metatarsal head lesion, Left Ankle ulcer with associated cellulitis Primary Care Physician Chito Wahl MD Diagnoses: (1) Pressure ulcer History of Present Illness 71 year old diabetic male with left ankle lateral ulcer with associated cellulitis and right foot dorsal digital ulcers and 5th met head lesion. Patient states he has had ulcer for a awhile. He is short of breath and it is difficult for him to talk. He states he has not been following with a development professional. He reports ankle swelling and redness has been present for 3 weeks. He will undergo a LHC tomorrow presented to ED with STEMI. Review of Systems Constitutional: COMPLAINS OF: Fatigue Eyes: DENIES: Blurred vision Respiratory: COMPLAINS OF: Cough, Shortness of breath Cardiovascular: COMPLAINS OF: Dyspnea on Exertion, Lower Extremity Edema Musculoskeletal: COMPLAINS OF: Joint pain, Stiffness, Joint Swelling Integumentary: COMPLAINS OF: Abnormal pigmentation Psychiatric: DENIES: Confusion Past Family Social History Allergies: Coded Allergies: codeine (Unverified Allergy, Severe, Rash, 05/04/17) propoxyphene (Unverified Allergy, Severe, Nausea/Vomiting, 05/04/17) acetaminophen (Verified Adverse Reaction, Mild, Tachycardia, 05/05/17) Patient given dose had SOB and Tachycardia that passed, previously got dose 12/ AM without any reaction, 12/ AM experienced the SOB and Tachycardia Active Ordered Medications Current Medications Medications (Trade) Dose Ordered Sig/Tatyana Route Start Time Stop Time Status Last Admin Heparin Sodium/ Dextrose 250 ml @ 9 mls/hr TITRATE PRN IV 05/04/17 01:45 05/06/17 22:41 (NS Flush) 2 ml UNSCH PRN IV FLUSH 05/04/17 08:15 05/05/17 17:26 (NS Flush) 2 ml BID IV FLUSH 05/04/17 09:00 05/06/17 22:17 (Tylenol) 650 mg Q4H PRN PO 05/04/17 08:15 05/05/17 03:15 (Zofran Inj) 4 mg Q6H PRN IVP 05/04/17 08:15 (Narcan Inj) 0.4 mg UNSCH PRN IV PUSH 05/04/17 08:15 (Kate-Colace) 1 tab BID PO 05/04/17 09:00 05/06/17 22:16 (Milk Of Magnesia Liq) 30 ml Q12H PRN PO 05/04/17 08:15 (Senokot) 17.2 mg Q12H PRN PO 05/04/17 08:15 (Dulcolax Supp) 10 mg DAILY PRN RECTAL 05/04/17 08:15 (Lactulose Liq) 30 ml DAILY PRN PO 05/04/17 08:15 (Morphine Inj) 2 mg Q3H PRN IV PUSH 05/04/17 08:15 (Ecotrin Ec) 81 mg DAILY PO 05/04/17 09:00 05/06/17 10:27 (Nitrostat Sl) 0.4 mg Q5M PRN SL 05/04/17 08:15 (D50w (Vial) Inj) 50 ml UNSCH PRN IV PUSH 05/04/17 08:15 (Glucagon Inj) 1 mg UNSCH PRN OTHER 05/04/17 08:15 (NovoLOG SUPPLEMENTAL SCALE) 1 ACHS SLIDING SCALE SQ 05/04/17 12:00 05/06/17 22:15 Pharmacy Profile Note 0 ml @ 0 mls/hr UNSCH OTHER 05/04/17 15:15 Piperacillin Sod/ Tazobactam Sod 100 ml @ 200 mls/hr Q6HR IV 05/04/17 18:00 05/06/17 18:00 (Vasotec) 20 mg BID PO 05/04/17 21:00 05/06/17 22:16 (Zanaflex) 4 mg HS PO 05/04/17 21:00 05/06/17 22:16 (Lipitor) 40 mg DAILY PO 05/05/17 09:00 05/06/17 10:27 (Duoneb Neb) 1 ampule Q4HR NEB PRN NEB 05/05/17 09:00 05/06/17 00:18 (Ultram) 50 mg Q8H PRN PO 05/05/17 09:00 (KCl) 20 meq Q12HR PO 05/05/17 09:00 05/10/17 08:59 05/06/17 22:16 (Norvasc) 5 mg DAILY PO 05/06/17 09:00 05/06/17 09:00 (Levemir Inj) 10 units HS SQ 05/05/17 21:00 05/06/17 22:17 (Lopressor) 25 mg Q12HR PO 05/05/17 21:00 05/06/17 22:16 (Lasix Inj) 40 mg BID@0900,1800 IV PUSH 05/06/17 09:00 05/06/17 18:00 Vancomycin HCl 1000 mg/Sodium Chloride 250 ml @ 250 mls/hr Q12H IV 05/06/17 23:00 05/06/17 23:00 Miscellaneous Information SPECIFIC LAB TO BE PAM... ONCE ONCE .XX 05/08/17 10:45 05/08/17 10:46 Social History Current Smoker Physical Exam Vital Signs Vital Signs Date Time Temp Pulse Resp B/P (MAP) Pulse Ox O2 Delivery O2 Flow Rate FiO2 05/06/17 23:37 100 50 05/06/17 21:00 100 50 05/06/17 20:30 100 BiPAP 50 05/06/17 20:00 98.2 89 20 124/72 (89) 93 05/06/17 18:00 86 05/06/17 17:00 89 05/06/17 16:51 99 BiPAP 50 05/06/17 16:50 99 50 05/06/17 16:00 90 05/06/17 15:00 92 05/06/17 15:00 98.1 92 16 135/70 (91) 97 05/06/17 14:00 86 05/06/17 14:00 97 Bi-Pap 35 05/06/17 13:00 90 05/06/17 12:00 86 05/06/17 11:00 90 05/06/17 11:00 98.0 90 16 126/74 (91) 94 05/06/17 10:00 86 05/06/17 09:00 92 05/06/17 08:00 97.4 96 16 137/75 (95) 99 05/06/17 08:00 96 05/06/17 07:26 99 Non-Rebreather 100 05/06/17 06:00 76 05/06/17 05:00 74 05/06/17 04:52 98.7 73 16 120/60 (80) 96 05/06/17 04:00 76 05/06/17 03:40 95 40 05/06/17 03:00 77 05/06/17 02:00 72 05/06/17 01:00 74 05/06/17 00:44 96 40 05/06/17 00:23 98.6 79 16 128/69 (88) 83 Physical Exam GENERAL: No acute distress. SKIN: Cool and dry. Hemosiderin deposits to bilateral LE. HEAD: Atraumatic. EYES: Pupils equal round and reactive. ENT: Airway patent.SOB noted. RESPIRATORY: Labored breathing. MUSCULOSKELETAL: Joint tenderness, edema noted to left ankle. No calf tenderness. Negative Homans sign bilaterally. NEUROLOGICAL: Awake and alert. Lower Extremity Physical Exam Vasc: Dp/PT non palpable 2/2 edema b/l. Pitting edema +2 noted to left ankle. CORE EXTRUDER under 3 secs and WNL to digits x5 to bilateral LE. Neuro: Gross sensation intact b/l. No hyperalgesia noted b/l. Derm: Eschar noted to left lateral ankle measuring 3.0cm x 3.0cm with periwound erythema. No drainage upon compression. Erythema to left lateral and medial ankle with no ascending into proximal tibia, no streaking or lymphangitis noted. Right foot digital PIPJ ulcers to digits 2,3,4 with fibro granular base and hyperkeratotic skin edges. Left 5th lateral met head callus/lesion with discoloration noted. MSK: Left foot pain on ROM. Pain on palpation to left ankle. No crepitus/ fluctuance noted to left ankle. Right foot hammertoes noted 2-5. Tailors bunion noted to right foot. Bilateral increase to medial eminence. Laboratory Laboratory Tests Test 05/06/17 00:22 05/06/17 10:43 05/06/17 11:05 05/06/17 13:00 Blood Gas Puncture Site RT RADIAL LT RADIAL Blood Gas Patient Temperature 98.6 98.6 Blood Gas HCO3 25 26 Blood Gas Base Excess 0.2 2.6 Blood Gas Oxygen Saturation 95 91 Arterial Blood pH 7.40 7.46 Arterial Blood Partial Pressure CO2 41 37 Arterial Blood Partial Pressure O2 94 68 Arterial Blood Oxygen Content 17.5 16.6 Arterial Blood Carboxyhemoglobin 0.6 0.7 Arterial Blood Methemoglobin 1.2 1.2 Blood Gas Hemoglobin 13.1 12.9 Oxygen Delivery Device Non-Rebreathing Mask NASAL CANNULA Blood Gas Liter Flow 15 6 Blood Gas Inspired Oxygen 100 Activated Partial Thromboplast Time 34.9 Vancomycin Level Trough 16.6 Test 05/06/17 18:11 Activated Partial Thromboplast Time 32.4 Date/Time Source Procedure Growth Status 05/04/17 04:35 Blood Peripheral Aerobic Blood Culture - Preliminary NO GROWTH IN 2 DAYS Resulted 05/04/17 04:35 Blood Peripheral Anaerobic Blood Culture - Preliminary NO GROWTH IN 2 DAYS Resulted 05/05/17 02:51 Wound Ankle Gram Stain - Final Resulted 05/05/17 02:51 Wound Culture - Preliminary S. Aureus Mrsa Resulted Result Diagram: 05/05/17 0650 05/05/17 0650 Assessment and Plan Assessment and Plan 71 year old male with left lateral ankle eschar/ulcer and associated ankle cellulitis; Right dorsal PIPJ ulcers and left 5th lateral met head lesion. Patient evaluated and examined; discussed course of treatment with patient MRI to left ankle r/o septic arthritis/septic joint as continued cellulitis with IV antibiotics Depending on MRI results will consider an joint aspiration Santyl to left lateral ankle ulcer Santyl to dorsal PIPJ ulcers Debridement to right lateral 5th met head lesion/callus to be performed bedside. Please obtain consent. Please have 10' blade bedside for procedure. Will place wound care orders Problem Qualifiers (1) Pressure ulcer: Alba Valdez DPM May 07, 2017 00:08
[2017-05-07 02:25] LABS: HEMATOCRIT 39.9 % (39.0-51.0); MEAN CELL VOLUME 84.6 FL (80.0-100.0); MEAN CORPUSCULAR HEMOGLOBIN 27.7 PG (27.0-34.0); MEAN CORPUSCULAR HGB CONC 32.7 % (32.0-36.0); PLATELET COUNT 581 TH/MM3 (150-450); RED BLOOD COUNT 4.71 MIL/MM3 (4.50-5.90); RED CELL DISTRIBUTION WIDTH 14.3 % (11.6-17.2); REVIEW FLAG FINAL
[2017-05-07 02:46] LABS: BICARBONATE 29.1 MEQ/L (21.0-32.0)
[2017-05-07 02:49] LABS: APTT (PATIENT) 35.2 SEC (24.3-30.1)
[2017-05-07] MEDS: PIPERACIL-TAZO 4.5 GM PREMIX 100 ML IV SCH ×4 (06:00→18:05)
--- NOTE | 2017-05-07 07:56 | HHI.PR ---
Subjective Remarks on BiPaP. says that BiPaP helps him with sob. denies chest pain. afebrile. Objective Vitals Vital Signs Date Time Temp Pulse Resp B/P (MAP) Pulse Ox O2 Delivery O2 Flow Rate FiO2 05/07/17 06:00 70 05/07/17 05:00 79 05/07/17 04:02 98 50 05/07/17 04:00 79 05/07/17 03:00 74 05/07/17 03:00 97.5 76 20 137/65 (89) 95 05/07/17 02:00 78 05/07/17 01:02 98 50 05/07/17 01:00 73 05/07/17 00:00 74 05/07/17 00:00 98.5 66 20 132/63 (86) 95 05/06/17 23:37 100 50 05/06/17 23:00 69 05/06/17 22:00 86 05/06/17 21:00 100 50 05/06/17 21:00 82 05/06/17 20:30 100 BiPAP 50 05/06/17 20:00 98.2 89 20 124/72 (89) 93 05/06/17 20:00 102 05/06/17 19:00 89 05/06/17 18:00 86 05/06/17 17:00 89 05/06/17 16:51 99 BiPAP 50 05/06/17 16:50 99 50 05/06/17 16:00 90 05/06/17 15:00 92 05/06/17 15:00 98.1 92 16 135/70 (91) 97 05/06/17 14:00 86 05/06/17 14:00 97 Bi-Pap 35 05/06/17 13:00 90 05/06/17 12:00 86 05/06/17 11:00 90 05/06/17 11:00 98.0 90 16 126/74 (91) 94 05/06/17 10:00 86 05/06/17 09:00 92 05/06/17 08:00 97.4 96 16 137/75 (95) 99 05/06/17 08:00 96 I/O 05/06/17 05/06/17 05/06/17 05/07/17 05/07/17 05/07/17 07:00 15:00 23:00 07:00 15:00 23:00 Intake Total 240 ml 350 ml 563 ml 590 ml Output Total 310 ml 900 ml 525 ml Balance -70 ml 350 ml -337 ml 65 ml Intake Oral 240 ml 400 ml 240 ml IV Total 350 ml 163 ml 350 ml Output Urine Total 310 ml 900 ml 525 ml Stool Total 0 ml # Bowel Movements 1 1 Result Diagram: 05/07/17 0210 05/07/17 0210 Imaging Last Impressions Chest X-Ray 05/06/17 0000 Signed Impressions: Service Date/Time: Saturday, May 06, 2017 10:19 - CONCLUSION: Acute central and perihilar interstitial vascular prominence characteristic of pulmonary edema. Mild patchy airspace disease in the bases. Dlyan Shipman MD Ankle X-Ray 05/04/17 0000 Signed Impressions: Service Date/Time: Thursday, May 04, 2017 15:27 - CONCLUSION: Mild degenerative type changes. Otherwise, unremarkable exam for patient's age. Lee Yao MD Objective Remarks GENERAL: with some sob. CARDIOVASCULAR: Regular rate and regular rhythm without murmurs, gallops, or rubs. RESPIRATORY: Clear to auscultation. Breath sounds equal bilaterally. No wheezes , rales, or rhonchi. GASTROINTESTINAL: Abdomen soft, non-tender, nondistended. Normal, active bowel sounds MUSCULOSKELETAL: Extremities with an ulcer on the left ankle with some surrounding erythema. NEURO: Alert & Oriented x4 to person, place, time, situation. Moves all ext x4 Procedures None Medications and IVs Inpatient Medications Acetaminophen (Tylenol) 650 mg Q4H PRN PO temp > 100.4 Last administered on 03:15; Start 05/04/17 at 08:15 Albuterol/ Ipratropium (Duoneb Neb) 1 ampule Q4HR NEB PRN NEB Cough, dyspnea, wheezing Last administered on 05/06/17 00:18; Start 05/05/17 at 09:00 Amlodipine Besylate (Norvasc) 5 mg DAILY PO Last administered on 05/06/17 09: 00; Start 05/06/17 at 09:00 Aspirin (Aspirin Chew) 324 mg ONCE ONCE CHEW Last administered on 05/04/17 01 :08; Start 05/04/17 at 01:15; Stop 05/04/17 at 01:16; Status DC Aspirin (Ecotrin Ec) 81 mg DAILY PO Last administered on 05/06/17 10:27; Start 05/04/17 at 09:00 Atorvastatin Calcium (Lipitor) 40 mg DAILY PO Last administered on 05/06/17 10:27; Start 05/05/17 at 09:00 Bisacodyl (Dulcolax Supp) 10 mg DAILY PRN RECTAL SEVERE CONSITIPATION; Start 05/04/17 at 08:15 Collagenase (Santyl Oint) 1 applic DAILY TOPICAL ; Start 05/07/17 at 09:00 Dextrose (D50w (Vial) Inj) 50 ml UNSCH PRN IV PUSH HYPOGLYCEMIA-SEE COMMENTS; Start 05/04/17 at 08:15 Enalapril Maleate (Vasotec) 20 mg BID PO Last administered on 05/06/17 22:16 ; Start 05/04/17 at 21:00 Furosemide (Lasix Inj) 40 mg BID@0900,1800 IV PUSH Last administered on 18:00; Start 05/06/17 at 09:00 Glucagon (Glucagon Inj) 1 mg UNSCH PRN OTHER HYPOGLYCEMIA-SEE COMMENTS; Start 05/04/17 at 08:15 Heparin Sodium (Porcine) (Heparin Inj) 4,000 units ONCE ONCE IV Last administered on 05/04/17 03:39; Start 05/04/17 at 03:30; Stop 05/04/17 at 03:32 ; Status DC Heparin Sodium/ Dextrose 250 ml @ 9 mls/hr TITRATE PRN IV Coagulation Management Last administered on 05/06/17 22:41; Start 05/04/17 at 01:45 Insulin Aspart (NovoLOG SUPPLEMENTAL SCALE) 1 ACHS SLIDING SCALE SQ Last administered on 05/06/17 22:15; Start 05/04/17 at 12:00 Insulin Detemir (Levemir Inj) 10 units HS SQ Last administered on 05/06/17 22 :17; Start 05/05/17 at 21:00 Insulin Human Isoph/Insulin Regular (NovoLIN 70/30 INJ) 15 units BID@08,17 SQ Last administered on 05/05/17 09:15; Start 05/04/17 at 17:00; Stop 05/05/17 at 14:30; Status DC Lactulose (Lactulose Liq) 30 ml DAILY PRN PO SEVERE CONSITIPATION; Start at 08:15 Magnesium Hydroxide (Milk Of Magnesia Liq) 30 ml Q12H PRN PO Mild constipation ; Start 05/04/17 at 08:15 Metoprolol Tartrate (Lopressor) 25 mg Q12HR PO Last administered on 05/06/17 22:16; Start 05/05/17 at 21:00 Miscellaneous Information SPECIFIC LAB TO BE PAM... ONCE ONCE .XX ; Start at 10:45; Stop 05/08/17 at 10:46 Morphine Sulfate (Morphine Inj) 2 mg Q3H PRN IV PUSH Chest pain ; Start at 08:15 Naloxone HCl (Narcan Inj) 0.4 mg UNSCH PRN IV PUSH SEE LABEL COMMENTS; Start 05/04/17 at 08:15 Nitroglycerin (Nitroglycerin 2% Oint) 1 inch ONCE ONCE TOPICAL Last administered on 05/04/17 01:08; Start 05/04/17 at 01:15; Stop 05/04/17 at 01:16 ; Status DC Nitroglycerin (Nitrostat Sl) 0.4 mg Q5M PRN SL CHEST PAIN; Start 05/04/17 at 08 :15 Ondansetron HCl (Zofran Inj) 4 mg Q6H PRN IVP NAUSEA OR VOMITING; Start at 08:15 Pharmacy Profile Note 0 ml @ 0 mls/hr UNSCH OTHER ; Start 05/04/17 at 15:15 Piperacillin Sod/ Tazobactam Sod 100 ml @ 200 mls/hr Q6HR IV Last administered on 05/07/17 06:00; Start 05/04/17 at 18:00 Potassium Bicarb/ Potassium Chloride (K-Lyte Cl Eff) 50 meq ONCE ONCE PO Last administered on 05/04/17 09:53; Start 05/04/17 at 08:15; Stop 05/04/17 at 08:27; Status DC Potassium Chloride (KCl) 20 meq Q12HR PO Last administered on 05/06/17 22:16 ; Start 05/05/17 at 09:00; Stop 05/10/17 at 08:59 Senna/Docusate Sodium (Kate-Colace) 1 tab BID PO Last administered on 22:16; Start 05/04/17 at 09:00 Sennosides (Senokot) 17.2 mg Q12H PRN PO Moderate constipation; Start 05/04/17 at 08:15 Sodium Chloride (NS Flush) 2 ml BID IV FLUSH Last administered on 05/06/17 22 :17; Start 05/04/17 at 09:00 Tizanidine HCl (Zanaflex) 4 mg HS PO Last administered on 05/06/17 22:16; Start 05/04/17 at 21:00 Tramadol HCl (Ultram) 50 mg Q8H PRN PO PAIN SCALE 5 TO 10; Start 05/05/17 at 09:00 Vancomycin HCl 1000 mg/Sodium Chloride 250 ml @ 250 mls/hr Q12H IV Last administered on 05/06/17 23:00; Start 05/06/17 at 23:00 Vancomycin HCl 1150 mg/Sodium Chloride 261.5 ml @ 250 mls/hr Q12H IV ; Start 05/04/17 at 15:15; Stop 05/04/17 at 16:01; Status DC Vancomycin HCl 1250 mg/Sodium Chloride 262.5 ml @ 250 mls/hr Q12H IV Last administered on 05/06/17 11:00; Start 05/05/17 at 11:00; Stop 05/06/17 at 14 :42; Status DC A/P Assessment and Plan A/P Sepsis Left lower ext cellulitis Diabetic foot ulcer - Patient met sepsis criteria with elevated white count of 18.5, tachycardia with heart rate of 94 and source of left leg cellulitis and open diabetic left ankle ulcer. - X ray of the left ankle is unremarkable. - Suspect underlying PAD. - IV vancomycin and Zosyn. Consult pharmacy to dose. will monitor the response. - blood cultures negative so far/ wound culture with MRSA - consulted wound care nurse. - podiatry consult appreciated; MRI of the ankle pending. -will consider ID consult pending the MRI and clinical course. NSTEMI - Cardiology following. - continue ASA and statin. - Started Metoprolol 25mg BID. - Obtained lipid profile - total chol 123, LDL 78. - echo with EF 35% - telemetry. -plan for cardiac cath- per cardiology. CHF- acute systolic - continue IV diuretic -monitor I/O -BiPaP as needed -continue BB and [place]-I -cardiology following. Hypertension - Continue Norvasc 5mg daily, Enalapril 20mg BID. - Hold home dose of hydrochlorothiazide 25 mg daily for now. - Monitor blood pressure and adjust treatment accordingly. Diabetes Mellitus. - Hemoglobin A1c 7.3%. - d/c'ed NPH. change levemit to 5 units subq bid, continue sliding scale insulin with Aspart. May need pre-meal coverage. Hypokalemia - replaced. Full code. Heparin drip. Discharge Planning not ready for discharge- cardiac w/u in progress- podiatry following. Annette Fontenot MD May 07, 2017 07:56
[2017-05-07] MEDS: INSULIN ASPART SUPPLEMENTAL SCALE SQ SCH ×4 (08:00→21:00)
--- NOTE | 2017-05-07 08:42 | PD.CARD.PN ---
Subjective Subjective Remarks No chest pain or palpitations. Reports good diuresis and feels lower extremity swelling is improving. He reports shortness of breath is improved with BiPAP. Nothing by mouth for probable intervention today. (Solomon Henderson) Objective Medications Current Medications Medications (Trade) Dose Ordered Sig/Tatyana Route Start Time Stop Time Status Last Admin Heparin Sodium/ Dextrose 250 ml @ 9 mls/hr TITRATE PRN IV 05/04/17 01:45 05/06/17 22:41 (NS Flush) 2 ml UNSCH PRN IV FLUSH 05/04/17 08:15 05/05/17 17:26 (NS Flush) 2 ml BID IV FLUSH 05/04/17 09:00 05/06/17 22:17 (Tylenol) 650 mg Q4H PRN PO 05/04/17 08:15 05/05/17 03:15 (Zofran Inj) 4 mg Q6H PRN IVP 05/04/17 08:15 (Narcan Inj) 0.4 mg UNSCH PRN IV PUSH 05/04/17 08:15 (Kate-Colace) 1 tab BID PO 05/04/17 09:00 05/06/17 22:16 (Milk Of Magnesia Liq) 30 ml Q12H PRN PO 05/04/17 08:15 (Senokot) 17.2 mg Q12H PRN PO 05/04/17 08:15 (Dulcolax Supp) 10 mg DAILY PRN RECTAL 05/04/17 08:15 (Lactulose Liq) 30 ml DAILY PRN PO 05/04/17 08:15 (Morphine Inj) 2 mg Q3H PRN IV PUSH 05/04/17 08:15 (Ecotrin Ec) 81 mg DAILY PO 05/04/17 09:00 05/06/17 10:27 (Nitrostat Sl) 0.4 mg Q5M PRN SL 05/04/17 08:15 (D50w (Vial) Inj) 50 ml UNSCH PRN IV PUSH 05/04/17 08:15 (Glucagon Inj) 1 mg UNSCH PRN OTHER 05/04/17 08:15 (NovoLOG SUPPLEMENTAL SCALE) 1 ACHS SLIDING SCALE SQ 05/04/17 12:00 05/06/17 22:15 Pharmacy Profile Note 0 ml @ 0 mls/hr UNSCH OTHER 05/04/17 15:15 Piperacillin Sod/ Tazobactam Sod 100 ml @ 200 mls/hr Q6HR IV 05/04/17 18:00 05/07/17 06:00 (Vasotec) 20 mg BID PO 05/04/17 21:00 05/06/17 22:16 (Zanaflex) 4 mg HS PO 05/04/17 21:00 05/06/17 22:16 (Lipitor) 40 mg DAILY PO 05/05/17 09:00 05/06/17 10:27 (Duoneb Neb) 1 ampule Q4HR NEB PRN NEB 05/05/17 09:00 05/06/17 00:18 (Ultram) 50 mg Q8H PRN PO 05/05/17 09:00 (KCl) 20 meq Q12HR PO 05/05/17 09:00 05/10/17 08:59 05/06/17 22:16 (Norvasc) 5 mg DAILY PO 05/06/17 09:00 05/06/17 09:00 (Lopressor) 25 mg Q12HR PO 05/05/17 21:00 05/06/17 22:16 (Lasix Inj) 40 mg BID@0900,1800 IV PUSH 05/06/17 09:00 05/06/17 18:00 Vancomycin HCl 1000 mg/Sodium Chloride 250 ml @ 250 mls/hr Q12H IV 05/06/17 23:00 05/06/17 23:00 Miscellaneous Information SPECIFIC LAB TO BE PAM... ONCE ONCE .XX 05/08/17 10:45 05/08/17 10:46 (Santyl Oint) 1 applic DAILY TOPICAL 05/07/17 09:00 (Levemir Inj) 5 units Q12HR SQ 05/07/17 09:00 Vital Signs / I&O Vital Signs Date Time Temp Pulse Resp B/P (MAP) Pulse Ox O2 Delivery O2 Flow Rate FiO2 05/07/17 06:00 70 05/07/17 05:00 79 05/07/17 04:02 98 50 05/07/17 04:00 79 05/07/17 03:00 74 05/07/17 03:00 97.5 76 20 137/65 (89) 95 05/07/17 02:00 78 05/07/17 01:02 98 50 05/07/17 01:00 73 05/07/17 00:00 74 05/07/17 00:00 98.5 66 20 132/63 (86) 95 05/06/17 23:37 100 50 05/06/17 23:00 69 05/06/17 22:00 86 05/06/17 21:00 100 50 05/06/17 21:00 82 05/06/17 20:30 100 BiPAP 50 05/06/17 20:00 98.2 89 20 124/72 (89) 93 05/06/17 20:00 102 05/06/17 19:00 89 05/06/17 18:00 86 05/06/17 17:00 89 05/06/17 16:51 99 BiPAP 50 05/06/17 16:50 99 50 05/06/17 16:00 90 05/06/17 15:00 92 05/06/17 15:00 98.1 92 16 135/70 (91) 97 05/06/17 14:00 86 05/06/17 14:00 97 Bi-Pap 35 05/06/17 13:00 90 05/06/17 12:00 86 05/06/17 11:00 90 05/06/17 11:00 98.0 90 16 126/74 (91) 94 05/06/17 10:00 86 05/06/17 09:00 92 I/O 05/06/17 05/06/17 05/06/17 05/07/17 05/07/17 05/07/17 07:00 15:00 23:00 07:00 15:00 23:00 Intake Total 240 ml 350 ml 563 ml 590 ml Output Total 310 ml 900 ml 525 ml Balance -70 ml 350 ml -337 ml 65 ml Intake Oral 240 ml 400 ml 240 ml IV Total 350 ml 163 ml 350 ml Output Urine Total 310 ml 900 ml 525 ml Stool Total 0 ml # Bowel Movements 1 1 Physical Exam GENERAL: Well-developed well-nourished. In no acute distress. NECK: No carotid bruits. No JVD. CARDIOVASCULAR: Regular rate and rhythm. No murmur appreciated. RESPIRATORY: No accessory muscle use. Improving bibasilar crackles. MUSCULOSKELETAL: Left lower extremity with venous stasis skin changes, left ankle ulcer, 1+ edema, nonpalpable pedal and popliteal pulses. Right lower extremity with 2+ lower extremity pulses and no edema. NEUROLOGICAL: Awake and alert. Normal speech. Laboratory Laboratory Tests Test 05/06/17 10:43 05/06/17 11:05 05/06/17 13:00 05/06/17 18:11 Blood Gas Puncture Site LT RADIAL Blood Gas Patient Temperature 98.6 Blood Gas HCO3 26 mmol/L Blood Gas Base Excess 2.6 mmol/L Blood Gas Oxygen Saturation 91 % Arterial Blood pH 7.46 Arterial Blood Partial Pressure CO2 37 mmHg Arterial Blood Partial Pressure O2 68 mmHg Arterial Blood Oxygen Content 16.6 Vol % Arterial Blood Carboxyhemoglobin 0.7 % Arterial Blood Methemoglobin 1.2 % Blood Gas Hemoglobin 12.9 G/DL Oxygen Delivery Device NASAL CANNULA Blood Gas Liter Flow 6 L/M Activated Partial Thromboplast Time 34.9 SEC 32.4 SEC Vancomycin Level Trough 16.6 MCG/ML Test 05/07/17 02:10 White Blood Count 15.0 TH/MM3 Red Blood Count 4.71 MIL/MM3 Hemoglobin 13.0 GM/DL Hematocrit 39.9 % Mean Corpuscular Volume 84.6 FL Mean Corpuscular Hemoglobin 27.7 PG Mean Corpuscular Hemoglobin Concent 32.7 % Red Cell Distribution Width 14.3 % Platelet Count 581 TH/MM3 Mean Platelet Volume 8.2 FL Activated Partial Thromboplast Time 35.2 SEC Blood Urea Nitrogen 26 MG/DL Creatinine 1.14 MG/DL Random Glucose 108 MG/DL Calcium Level 8.5 MG/DL Sodium Level 142 MEQ/L Potassium Level 4.0 MEQ/L Chloride Level 106 MEQ/L Carbon Dioxide Level 29.1 MEQ/L Anion Gap 7 MEQ/L Estimat Glomerular Filtration Rate 64 ML/MIN Imaging Last Impressions Chest X-Ray 05/06/17 0000 Signed Impressions: Service Date/Time: Saturday, May 06, 2017 10:19 - CONCLUSION: Acute central and perihilar interstitial vascular prominence characteristic of pulmonary edema. Mild patchy airspace disease in the bases. Dylan Shipman MD Ankle X-Ray 05/04/17 0000 Signed Impressions: Service Date/Time: Thursday, May 04, 2017 15:27 - CONCLUSION: Mild degenerative type changes. Otherwise, unremarkable exam for patient's age. MD Jack Carson Travis D. PA) Assessment and Plan Assessment and Plan 71-year-old male with a past medical history of DM, HTN who presented for left lower extremity swelling, ulcer, and pain. He was found to have EKG changes in the ED. abnormal EKG/NSTEMI: Will need LHC, probably today. Acute systolic CHF: Echo with reduced systolic function, EF 30-40 %. Continue IV Lasix to 40 mg twice a day. + infection LLE/poor circulation with PAD: continue IV antibiotics. Podiatry on board. Will need LLE peripheral angiogram, tentatively today. (Solomon Henderson) Assessment and Plan Resp - still on BiPap. PNA + CHF I/O even. increase lasix 60 mg BID hold off on procedure until breathing improved. ok to DC heparin gtt. plan for LHC + LLE peripheral angio possibly thurs? (Jonny Melchor MD) Solomon Henderson May 07, 2017 08:41 Jonny Melchor MD May 07, 2017 12:48
[2017-05-07] MEDS: INSULIN DETEMIR 100 UNITS/ML VIAL SQ SCH ×2 (09:00→21:23)
[2017-05-07] MEDS: POTASSIUM CHLORIDE 20 MEQ CONTROLLED RELEASE TAB PO SCH ×3 (09:00→21:22)
[2017-05-07] MEDS: COLLAGENASE OINT 30 GM TUBE TOPICAL SCH (09:00)
[2017-05-07] MEDS: SODIUM CHLORIDE 0.9% FLUSH 10 ML FLUSH IV FLUSH SCH ×2 (09:00→21:22)
--- NOTE | 2017-05-07 09:55 | PD.WCN.NOT ---
Wound Consult Additional Information: Patient not seen for wound management of L ankle. Doctor Courtney saw patient and wrote wound care orders for L ankle wound. Please defer to podiatry for further wound care orders regarding L ankle area. Wound care inpatient is signing off. Kanchan [facility]ón [facility] May 07, 2017 09:55
[2017-05-07] MEDS: ATORVASTATIN 40 MG TAB PO SCH (10:06)
[2017-05-07] MEDS: DOCUSATE SODIUM 50 MG/SENNA 8.6 MG TAB PO SCH ×2 (10:07→21:00)
[2017-05-07] MEDS: ENALAPRIL MALEATE 10 MG TAB PO SCH ×2 (10:07→21:23)
[2017-05-07] MEDS: ASPIRIN EC 81 MG TABEC PO SCH (10:07)
[2017-05-07] MEDS: METOPROLOL TARTRATE 25 MG TAB PO SCH ×2 (10:07→21:22)
[2017-05-07] MEDS: FUROSEMIDE 40 MG/4 ML VIAL IV PUSH SCH (10:30)
[2017-05-07] MEDS: VANCOMYCIN 1,000 MG/NS 250 ML IV SCH ×4 (11:00→23:22)
[2017-05-07 13:50] LABS: APTT (PATIENT) 38.5 SEC (24.3-30.1)
[2017-05-07] MEDS ORDERED: FUROSEMIDE 40 MG/4 ML VIAL IV PUSH SCH (18:00)
[2017-05-08] VITALS (28 sets, daily range): BP systolic 128–153; BP diastolic 62–78; PULSE 71–99; RESP 18–22; TEMP 97.5–98; O2SAT 92–97
[2017-05-08] MEDS: PIPERACIL-TAZO 4.5 GM PREMIX 100 ML IV SCH ×4 (06:20→17:32)
--- NOTE | 2017-05-08 07:18 | HHI.PR ---
Subjective Remarks f/u; CHF/ left foot infection in no acute distress. looks a little more comfortable today. however still on 4 liters of oxygen via N/C. denies pain. afebrile. d/w the RN. Objective Vitals Vital Signs Date Time Temp Pulse Resp B/P (MAP) Pulse Ox O2 Delivery O2 Flow Rate FiO2 05/08/17 06:00 99 05/08/17 05:00 75 05/08/17 04:00 81 05/08/17 03:00 71 05/08/17 03:00 97.5 77 20 148/76 (100) 93 05/08/17 03:00 93 Bi-Pap 05/08/17 02:00 76 05/08/17 02:00 97 50 05/08/17 01:00 78 05/08/17 00:00 74 05/07/17 23:00 94 05/07/17 23:00 98.2 81 14 129/67 (87) 95 05/07/17 23:00 95 Nasal Cannula 5.00 05/07/17 22:00 92 05/07/17 21:00 84 05/07/17 20:00 96 05/07/17 19:00 112 05/07/17 19:00 98.0 97 16 120/63 (82) 94 05/07/17 19:00 94 Nasal Cannula 5.00 05/07/17 16:00 94 05/07/17 15:00 76 05/07/17 15:00 97.9 81 18 122/76 (91) 93 05/07/17 14:00 82 05/07/17 13:00 78 05/07/17 12:00 73 05/07/17 11:15 73 24 132/69 (90) 96 05/07/17 11:00 74 05/07/17 10:00 102 05/07/17 09:30 97 50 05/07/17 09:00 86 05/07/17 08:00 88 05/07/17 08:00 98.1 101 24 141/84 (103) 94 I/O 05/07/17 05/07/17 05/07/17 05/08/17 05/08/17 05/08/17 07:00 15:00 23:00 07:00 15:00 23:00 Intake Total 590 ml 1040 ml 1070 ml Output Total 525 ml 200 ml 1000 ml Balance 65 ml 840 ml 70 ml Intake Oral 240 ml 840 ml 720 ml IV Total 350 ml 200 ml 350 ml Output Urine Total 525 ml 200 ml 1000 ml # Voids 2 # Bowel Movements 1 Result Diagram: 05/07/17 0210 05/07/17 0210 Imaging Last Impressions Chest X-Ray 05/06/17 0000 Signed Impressions: Service Date/Time: Saturday, May 06, 2017 10:19 - CONCLUSION: Acute central and perihilar interstitial vascular prominence characteristic of pulmonary edema. Mild patchy airspace disease in the bases. Dylan Shipman MD Ankle X-Ray 05/04/17 0000 Signed Impressions: Service Date/Time: Thursday, May 04, 2017 15:27 - CONCLUSION: Mild degenerative type changes. Otherwise, unremarkable exam for patient's age. Lee Yao MD Objective Remarks GENERAL: on oxygen via N/C but looks a little more comfortable today. CARDIOVASCULAR: Regular rate and regular rhythm without murmurs, gallops, or rubs. RESPIRATORY: Clear to auscultation. Breath sounds equal bilaterally. No wheezes , rales, or rhonchi. GASTROINTESTINAL: Abdomen soft, non-tender, nondistended. Normal, active bowel sounds MUSCULOSKELETAL: Extremities with an ulcer on the left ankle with some surrounding erythema. NEURO: Alert & Oriented x4 to person, place, time, situation. Moves all ext x4 Procedures None Medications and IVs Inpatient Medications Acetaminophen (Tylenol) 650 mg Q4H PRN PO temp > 100.4 Last administered on 03:15; Start 05/04/17 at 08:15 Albuterol/ Ipratropium (Duoneb Neb) 1 ampule Q4HR NEB PRN NEB Cough, dyspnea, wheezing Last administered on 05/06/17 00:18; Start 05/05/17 at 09:00 Amlodipine Besylate (Norvasc) 5 mg DAILY PO Last administered on 05/07/17 10: 06; Start 05/06/17 at 09:00 Aspirin (Aspirin Chew) 324 mg ONCE ONCE CHEW Last administered on 05/04/17 01 :08; Start 05/04/17 at 01:15; Stop 05/04/17 at 01:16; Status DC Aspirin (Ecotrin Ec) 81 mg DAILY PO Last administered on 05/07/17 10:07; Start 05/04/17 at 09:00 Atorvastatin Calcium (Lipitor) 40 mg DAILY PO Last administered on 05/07/17 10:06; Start 05/05/17 at 09:00 Bisacodyl (Dulcolax Supp) 10 mg DAILY PRN RECTAL SEVERE CONSITIPATION; Start 05/04/17 at 08:15 Collagenase (Santyl Oint) 1 applic DAILY TOPICAL ; Start 05/07/17 at 09:00 Dextrose (D50w (Vial) Inj) 50 ml UNSCH PRN IV PUSH HYPOGLYCEMIA-SEE COMMENTS; Start 05/04/17 at 08:15 Enalapril Maleate (Vasotec) 20 mg BID PO Last administered on 05/07/17 21:23 ; Start 05/04/17 at 21:00 Furosemide (Lasix Inj) 60 mg BID@0900,1800 IV PUSH Last administered on 18:06; Start 05/07/17 at 18:00 Glucagon (Glucagon Inj) 1 mg UNSCH PRN OTHER HYPOGLYCEMIA-SEE COMMENTS; Start 05/04/17 at 08:15 Heparin Sodium (Porcine) (Heparin Inj) 4,000 units ONCE ONCE IV Last administered on 05/04/17 03:39; Start 05/04/17 at 03:30; Stop 05/04/17 at 03:32 ; Status DC Heparin Sodium/ Dextrose 250 ml @ 9 mls/hr TITRATE PRN IV Coagulation Management Last administered on 05/06/17 22:41; Start 05/04/17 at 01:45; Stop 05/07/17 at 12:47; Status DC Insulin Aspart (NovoLOG SUPPLEMENTAL SCALE) 1 ACHS SLIDING SCALE SQ Last administered on 05/07/17 21:00; Start 05/04/17 at 12:00 Insulin Detemir (Levemir Inj) 5 units Q12HR SQ Last administered on 05/07/17 21:23; Start 05/07/17 at 09:00 Insulin Human Isoph/Insulin Regular (NovoLIN 70/30 INJ) 15 units BID@08,17 SQ Last administered on 05/05/17 09:15; Start 05/04/17 at 17:00; Stop 05/05/17 at 14:30; Status DC Lactulose (Lactulose Liq) 30 ml DAILY PRN PO SEVERE CONSITIPATION; Start at 08:15 Magnesium Hydroxide (Milk Of Magnesia Liq) 30 ml Q12H PRN PO Mild constipation ; Start 05/04/17 at 08:15 Metoprolol Tartrate (Lopressor) 25 mg Q12HR PO Last administered on 05/07/17 21:22; Start 05/05/17 at 21:00 Miscellaneous Information SPECIFIC LAB TO BE PAM... ONCE ONCE .XX ; Start at 10:45; Stop 05/08/17 at 10:46 Morphine Sulfate (Morphine Inj) 2 mg Q3H PRN IV PUSH Chest pain ; Start at 08:15 Naloxone HCl (Narcan Inj) 0.4 mg UNSCH PRN IV PUSH SEE LABEL COMMENTS; Start 05/04/17 at 08:15 Nitroglycerin (Nitroglycerin 2% Oint) 1 inch ONCE ONCE TOPICAL Last administered on 05/04/17 01:08; Start 05/04/17 at 01:15; Stop 05/04/17 at 01:16 ; Status DC Nitroglycerin (Nitrostat Sl) 0.4 mg Q5M PRN SL CHEST PAIN; Start 05/04/17 at 08 :15 Ondansetron HCl (Zofran Inj) 4 mg Q6H PRN IVP NAUSEA OR VOMITING; Start at 08:15 Pharmacy Profile Note 0 ml @ 0 mls/hr UNSCH OTHER ; Start 05/04/17 at 15:15 Piperacillin Sod/ Tazobactam Sod 100 ml @ 200 mls/hr Q6HR IV Last administered on 05/08/17 06:20; Start 05/04/17 at 18:00 Potassium Bicarb/ Potassium Chloride (K-Lyte Cl Eff) 50 meq ONCE ONCE PO Last administered on 05/04/17 09:53; Start 05/04/17 at 08:15; Stop 05/04/17 at 08:27; Status DC Potassium Chloride (KCl) 20 meq Q12HR PO Last administered on 05/07/17 21:22 ; Start 05/05/17 at 09:00; Stop 05/10/17 at 08:59 Senna/Docusate Sodium (Kate-Colace) 1 tab BID PO Last administered on 10:07; Start 05/04/17 at 09:00 Sennosides (Senokot) 17.2 mg Q12H PRN PO Moderate constipation; Start 05/04/17 at 08:15 Sodium Chloride (NS Flush) 2 ml BID IV FLUSH Last administered on 05/07/17 21 :22; Start 05/04/17 at 09:00 Tizanidine HCl (Zanaflex) 4 mg HS PO Last administered on 05/07/17 21:22; Start 05/04/17 at 21:00 Tramadol HCl (Ultram) 50 mg Q8H PRN PO PAIN SCALE 5 TO 10; Start 05/05/17 at 09:00 Vancomycin HCl 1000 mg/Sodium Chloride 250 ml @ 250 mls/hr Q12H IV Last administered on 05/07/17 23:22; Start 05/06/17 at 23:00 Vancomycin HCl 1150 mg/Sodium Chloride 261.5 ml @ 250 mls/hr Q12H IV ; Start 05/04/17 at 15:15; Stop 05/04/17 at 16:01; Status DC Vancomycin HCl 1250 mg/Sodium Chloride 262.5 ml @ 250 mls/hr Q12H IV Last administered on 05/06/17 11:00; Start 05/05/17 at 11:00; Stop 05/06/17 at 14 :42; Status DC A/P Assessment and Plan A/P Sepsis Left lower ext cellulitis Diabetic foot ulcer PVD - Patient met sepsis criteria with elevated white count of 18.5, tachycardia with heart rate of 94 and source of left leg cellulitis and open diabetic left ankle ulcer. - X ray of the left ankle is unremarkable. - Suspect underlying PAD. - IV vancomycin and Zosyn. Consulted pharmacy to dose. will monitor the response. - blood cultures negative so far/ wound culture with MRSA and strep - consulted wound care nurse. - podiatry consult appreciated; MRI of the ankle pending. - for left lower extremity angiogram- possibly tomorrow-per cardiology -will consider ID consult pending the MRI and clinical course. NSTEMI - Cardiology following. - continue ASA and statin. - Started Metoprolol 25mg BID. - heparin drip was discontinued. - echo with EF 35% - telemetry. -plan for cardiac cath possibly tomorrow- per cardiology. CHF- acute systolic - increased IV diuretic -monitor I/O , renal function and electrolytes. -BiPaP as needed -continue BB and [place]-I -cardiology following. Hypertension - Continue Norvasc, enalapril and metoprolol - Hold home dose of hydrochlorothiazide 25 mg daily for now. - Monitor blood pressure and adjust treatment accordingly. Diabetes Mellitus. - Hemoglobin A1c 7.3%. - d/c'ed NPH. changed levemit to 5 units subq bid, continue sliding scale insulin with Aspart. May need pre-meal coverage. Hypokalemia - replaced. DVT prophylaxis; will start on chemical prophylaxis after planned procedures. continue PT. Full code. Discharge Planning not ready for discharge- cardiac w/u in progress- podiatry following. Annette Fontenot MD May 08, 2017 07:18
[2017-05-08] MEDS: INSULIN ASPART SUPPLEMENTAL SCALE SQ SCH ×4 (08:00→21:00)
--- NOTE | 2017-05-08 08:17 | PD.CARD.PN ---
Subjective Subjective Remarks Shortness of breath is improved some today, on nasal cannula. No chest pain or palpitations. Patient reports good urine output and feels lower extremity swelling is improving, however remains with positive fluid balance. (Solomon Henderson) Objective Medications Current Medications Medications (Trade) Dose Ordered Sig/Tatyana Route Start Time Stop Time Status Last Admin (NS Flush) 2 ml UNSCH PRN IV FLUSH 05/04/17 08:15 05/05/17 17:26 (NS Flush) 2 ml BID IV FLUSH 05/04/17 09:00 05/07/17 21:22 (Tylenol) 650 mg Q4H PRN PO 05/04/17 08:15 05/05/17 03:15 (Zofran Inj) 4 mg Q6H PRN IVP 05/04/17 08:15 (Narcan Inj) 0.4 mg UNSCH PRN IV PUSH 05/04/17 08:15 (Kate-Colace) 1 tab BID PO 05/04/17 09:00 05/07/17 10:07 (Milk Of Magnesia Liq) 30 ml Q12H PRN PO 05/04/17 08:15 (Senokot) 17.2 mg Q12H PRN PO 05/04/17 08:15 (Dulcolax Supp) 10 mg DAILY PRN RECTAL 05/04/17 08:15 (Lactulose Liq) 30 ml DAILY PRN PO 05/04/17 08:15 (Morphine Inj) 2 mg Q3H PRN IV PUSH 05/04/17 08:15 (Ecotrin Ec) 81 mg DAILY PO 05/04/17 09:00 05/07/17 10:07 (Nitrostat Sl) 0.4 mg Q5M PRN SL 05/04/17 08:15 (D50w (Vial) Inj) 50 ml UNSCH PRN IV PUSH 05/04/17 08:15 (Glucagon Inj) 1 mg UNSCH PRN OTHER 05/04/17 08:15 (NovoLOG SUPPLEMENTAL SCALE) 1 ACHS SLIDING SCALE SQ 05/04/17 12:00 05/07/17 21:00 Pharmacy Profile Note 0 ml @ 0 mls/hr UNSCH OTHER 05/04/17 15:15 Piperacillin Sod/ Tazobactam Sod 100 ml @ 200 mls/hr Q6HR IV 05/04/17 18:00 05/08/17 06:20 (Vasotec) 20 mg BID PO 05/04/17 21:00 05/07/17 21:23 (Zanaflex) 4 mg HS PO 05/04/17 21:00 05/07/17 21:22 (Lipitor) 40 mg DAILY PO 05/05/17 09:00 05/07/17 10:06 (Duoneb Neb) 1 ampule Q4HR NEB PRN NEB 05/05/17 09:00 05/06/17 00:18 (Ultram) 50 mg Q8H PRN PO 05/05/17 09:00 (KCl) 20 meq Q12HR PO 05/05/17 09:00 05/10/17 08:59 05/07/17 21:22 (Norvasc) 5 mg DAILY PO 05/06/17 09:00 05/07/17 10:06 (Lopressor) 25 mg Q12HR PO 05/05/17 21:00 05/07/17 21:22 Vancomycin HCl 1000 mg/Sodium Chloride 250 ml @ 250 mls/hr Q12H IV 05/06/17 23:00 05/07/17 23:22 Miscellaneous Information SPECIFIC LAB TO BE PAM... ONCE ONCE .XX 05/08/17 10:45 05/08/17 10:46 (Santyl Oint) 1 applic DAILY TOPICAL 05/07/17 09:00 (Levemir Inj) 5 units Q12HR SQ 05/07/17 09:00 05/07/17 21:23 (Lasix Inj) 60 mg BID@0900,1800 IV PUSH 05/07/17 18:00 05/07/17 18:06 Vital Signs / I&O Vital Signs Date Time Temp Pulse Resp B/P (MAP) Pulse Ox O2 Delivery O2 Flow Rate FiO2 05/08/17 06:00 99 05/08/17 05:00 75 05/08/17 04:00 81 05/08/17 03:00 71 05/08/17 03:00 97.5 77 20 148/76 (100) 93 05/08/17 03:00 93 Bi-Pap 05/08/17 02:00 76 05/08/17 02:00 97 50 05/08/17 01:00 78 05/08/17 00:00 74 05/07/17 23:00 94 05/07/17 23:00 98.2 81 14 129/67 (87) 95 05/07/17 23:00 95 Nasal Cannula 5.00 05/07/17 22:00 92 05/07/17 21:00 84 05/07/17 20:00 96 05/07/17 19:00 112 05/07/17 19:00 98.0 97 16 120/63 (82) 94 05/07/17 19:00 94 Nasal Cannula 5.00 05/07/17 16:00 94 05/07/17 15:00 76 05/07/17 15:00 97.9 81 18 122/76 (91) 93 05/07/17 14:00 82 05/07/17 13:00 78 05/07/17 12:00 73 05/07/17 11:15 73 24 132/69 (90) 96 05/07/17 11:00 74 05/07/17 10:00 102 05/07/17 09:30 97 50 05/07/17 09:00 86 I/O 05/07/17 05/07/17 05/07/17 05/08/17 05/08/17 05/08/17 07:00 15:00 23:00 07:00 15:00 23:00 Intake Total 590 ml 1040 ml 1070 ml Output Total 525 ml 200 ml 1000 ml Balance 65 ml 840 ml 70 ml Intake Oral 240 ml 840 ml 720 ml IV Total 350 ml 200 ml 350 ml Output Urine Total 525 ml 200 ml 1000 ml # Voids 2 # Bowel Movements 1 Physical Exam GENERAL: Well-developed well-nourished. In no acute distress. NECK: No carotid bruits. No JVD. CARDIOVASCULAR: Regular rate and rhythm. No murmur appreciated. RESPIRATORY: No accessory muscle use. Bibasilar crackles. Some expiratory wheezing. MUSCULOSKELETAL: Left lower extremity with venous stasis skin changes, left ankle ulcer, trace edema, nonpalpable pedal and popliteal pulses. Right lower extremity with 2+ lower extremity pulses and no edema. NEUROLOGICAL: Awake and alert. Normal speech. Laboratory Laboratory Tests Test 05/07/17 13:10 Activated Partial Thromboplast Time 38.5 SEC Imaging Last Impressions Chest X-Ray 05/06/17 0000 Signed Impressions: Service Date/Time: Saturday, May 06, 2017 10:19 - CONCLUSION: Acute central and perihilar interstitial vascular prominence characteristic of pulmonary edema. Mild patchy airspace disease in the bases. Dylan Shipman MD Ankle X-Ray 05/04/17 0000 Signed Impressions: Service Date/Time: Thursday, May 04, 2017 15:27 - CONCLUSION: Mild degenerative type changes. Otherwise, unremarkable exam for patient's age. Lee Yao MD (Solomon Henderson) Assessment and Plan Assessment and Plan 71-year-old male with a past medical history of DM, HTN who presented for left lower extremity swelling, ulcer, and pain. He was found to have EKG changes in the ED. abnormal EKG/NSTEMI: Will need LHC, tentatively tomorrow. Acute systolic CHF: Echo with reduced systolic function, EF 35-40 %. Increased IV Lasix to 60 mg twice a day. Sodium restrictions. Monitor I's and O's. + infection LLE/poor circulation with PAD: continue IV antibiotics. Podiatry on board. Will need LLE peripheral angiogram, tentatively tomorrow. Shortness of breath/COPD exacerbation: Nebs. (Solomon Henderson) Assessment and Plan -0 LHC & peripheral angio tomorrow NPO p MN (Jonny Melchor MD) Solomon Henderson May 08, 2017 08:17 Jonny Melchor MD May 08, 2017 18:07
[2017-05-08] MEDS: SODIUM CHLORIDE 0.9% FLUSH 10 ML FLUSH IV FLUSH SCH ×2 (08:38→22:20)
[2017-05-08] MEDS: POTASSIUM CHLORIDE 20 MEQ CONTROLLED RELEASE TAB PO SCH ×2 (08:39→21:00)
[2017-05-08] MEDS: METOPROLOL TARTRATE 25 MG TAB PO SCH ×2 (08:39→22:20)
[2017-05-08] MEDS: ENALAPRIL MALEATE 10 MG TAB PO SCH ×2 (08:39→22:20)
[2017-05-08] MEDS: INSULIN DETEMIR 100 UNITS/ML VIAL SQ SCH ×2 (08:39→21:00)
[2017-05-08] MEDS: ATORVASTATIN 40 MG TAB PO SCH (08:39)
[2017-05-08] MEDS: COLLAGENASE OINT 30 GM TUBE TOPICAL SCH (08:39)
[2017-05-08] MEDS: ASPIRIN EC 81 MG TABEC PO SCH (08:39)
[2017-05-08] MEDS: DOCUSATE SODIUM 50 MG/SENNA 8.6 MG TAB PO SCH ×2 (08:39→21:00)
[2017-05-08] MEDS ORDERED: PHARMACY ORDERED LAB ONE ×2 (10:45→22:45)
--- NOTE | 2017-05-08 10:51 | RADRPT ---
EXAM DATE/TIME: 05/08/2017 09:48 [facility] COMPARISON: No previous studies available for comparison. INDICATIONS : Osteomyelitis. Ulcer on lateral aspect of left ankle. CONTRAST: 16 cc Omniscan (gadodiamide) IV MEDICAL HISTORY : Hypertension. Diabetes mellitus type 2. Chronic obstructive pulmonary disease. SURGICAL HISTORY : None. ENCOUNTER: Subsequent ACUITY: 4-6 days PAIN SCORE: 2/10 LOCATION: Left ankle. TECHNIQUE: Multiplanar, multisequence MRI examination was performed without contrast and after the intravenous a dministration of gadolinium. FINDINGS: Problem specific findings: The coronal T2 weighted fat sat imaging demonstrates fairly extensive marrow edema throughout the lat eral malleolus. There is subtle enhancement post contrast administration within the lateral malleolus as well. Findings would be concerning for osteomyelitis involving the lateral malleolus. There is ex tensive cellulitic change involving the soft tissues of the distal calf and ankle. No focal drainable abscess is identified. MRA source data: The tibia appears intact. The ankle mortise is intact. There is no significant joint effusion. The fl exor and extensor tendons are intact. No other abnormal marrow edema is identified. CONCLUSION: 1. Abnormal marrow edema within the lateral malleolus and subtle contrast enhancement. Findings are c oncerning for osteomyelitis. 2. Cellulitic changes in the soft tissues around the lateral aspect of the foot and ankle. Huseyin Muñoz MD on May 08, 2017 at 10:44 Board Certified Radiologist. This report was verified electronically.
[2017-05-08] MEDS: FUROSEMIDE 100 MG/10 ML VIAL IV PUSH SCH ×2 (10:58→17:34)
[2017-05-08] MEDS: VANCOMYCIN 1,000 MG/NS 250 ML IV SCH ×4 (11:00→22:53)
[2017-05-08] MEDS ORDERED: GADODIAMIDE PF 287 MG/ML 20 ML VIAL (for RAD MRI) IVCONTRAST ONE (11:05)
[2017-05-08] MEDS: RESP: ALBUTEROL 2.5 MG/IPRATROPIUM 0.5 MG NEB (SCH) NEB (19:50)
[2017-05-09] VITALS (29 sets, daily range): BP systolic 116–166; BP diastolic 55–76; PULSE 66–88; RESP 18–24; TEMP 97.4–98.6; O2SAT 90–98
[2017-05-09] MEDS: PIPERACIL-TAZO 4.5 GM PREMIX 100 ML IV SCH ×5 (00:21→23:51)
[2017-05-09 04:23] LABS: AUTOMATED NEUTROPHIL # 11.4 TH/MM3 (1.8-7.7); BASOPHIL # 0.1 TH/MM3 (0-0.2); BASOPHIL % 0.7 % (0.0-2.0); EOSINOPHIL # 0.1 TH/MM3 (0-0.4); HEMATOCRIT 37.8 % (39.0-51.0); HEMO FLAGS DIFF FINAL; LYMPH % 7.7 % (9.0-44.0); LYMPHOCYTE # 1.1 TH/MM3 (1.0-4.8); MEAN CELL VOLUME 84.3 FL (80.0-100.0); MEAN CORPUSCULAR HEMOGLOBIN 28.4 PG (27.0-34.0); MEAN CORPUSCULAR HGB CONC 33.7 % (32.0-36.0); NEUT % 83.6 % (16.0-70.0); PLATELET COUNT 509 TH/MM3 (150-450); RED BLOOD COUNT 4.49 MIL/MM3 (4.50-5.90); RED CELL DISTRIBUTION WIDTH 14.2 % (11.6-17.2); WHITE BLOOD COUNT 13.6 TH/MM3 (4.0-11.0)
[2017-05-09 04:42] LABS: BICARBONATE 33.9 MEQ/L (21.0-32.0); POTASSIUM 3.5 MEQ/L (3.5-5.1)
[2017-05-09] MEDS: RESP: ALBUTEROL 2.5 MG/IPRATROPIUM 0.5 MG NEB (SCH) NEB ×3 (08:00→20:53)
[2017-05-09] MEDS: INSULIN ASPART SUPPLEMENTAL SCALE SQ SCH ×4 (08:00→20:52)
--- NOTE | 2017-05-09 08:10 | PD.CARD.PN ---
Subjective Subjective Remarks Patient reports shortness of breath continues to improve today, on nasal cannula. Denies any chest pain. Patient reports good urine output, remains with positive fluid balance. (Solomon Henderson) Objective Medications Current Medications Medications (Trade) Dose Ordered Sig/Tatyana Route Start Time Stop Time Status Last Admin (NS Flush) 2 ml UNSCH PRN IV FLUSH 05/04/17 08:15 05/05/17 17:26 (NS Flush) 2 ml BID IV FLUSH 05/04/17 09:00 05/08/17 22:20 (Tylenol) 650 mg Q4H PRN PO 05/04/17 08:15 05/05/17 03:15 (Zofran Inj) 4 mg Q6H PRN IVP 05/04/17 08:15 (Narcan Inj) 0.4 mg UNSCH PRN IV PUSH 05/04/17 08:15 (Kate-Colace) 1 tab BID PO 05/04/17 09:00 05/08/17 08:39 (Milk Of Magnesia Liq) 30 ml Q12H PRN PO 05/04/17 08:15 (Senokot) 17.2 mg Q12H PRN PO 05/04/17 08:15 (Dulcolax Supp) 10 mg DAILY PRN RECTAL 05/04/17 08:15 (Lactulose Liq) 30 ml DAILY PRN PO 05/04/17 08:15 (Morphine Inj) 2 mg Q3H PRN IV PUSH 05/04/17 08:15 (Ecotrin Ec) 81 mg DAILY PO 05/04/17 09:00 05/08/17 08:39 (Nitrostat Sl) 0.4 mg Q5M PRN SL 05/04/17 08:15 (D50w (Vial) Inj) 50 ml UNSCH PRN IV PUSH 05/04/17 08:15 (Glucagon Inj) 1 mg UNSCH PRN OTHER 05/04/17 08:15 (NovoLOG SUPPLEMENTAL SCALE) 1 ACHS SLIDING SCALE SQ 05/04/17 12:00 05/08/17 21:00 Pharmacy Profile Note 0 ml @ 0 mls/hr UNSCH OTHER 05/04/17 15:15 Piperacillin Sod/ Tazobactam Sod 100 ml @ 200 mls/hr Q6HR IV 05/04/17 18:00 05/09/17 06:08 (Vasotec) 20 mg BID PO 05/04/17 21:00 05/08/17 22:20 (Zanaflex) 4 mg HS PO 05/04/17 21:00 05/08/17 22:20 (Lipitor) 40 mg DAILY PO 05/05/17 09:00 05/08/17 08:39 (Duoneb Neb) 1 ampule Q4HR NEB PRN NEB 05/05/17 09:00 05/06/17 00:18 (Ultram) 50 mg Q8H PRN PO 05/05/17 09:00 (KCl) 20 meq Q12HR PO 05/05/17 09:00 05/10/17 08:59 05/08/17 21:00 (Norvasc) 5 mg DAILY PO 05/06/17 09:00 05/08/17 08:39 (Lopressor) 25 mg Q12HR PO 05/05/17 21:00 05/08/17 22:20 (Santyl Oint) 1 applic DAILY TOPICAL 05/07/17 09:00 05/08/17 08:39 (Levemir Inj) 5 units Q12HR SQ 05/07/17 09:00 05/08/17 21:00 (Duoneb Neb) 1 ampule Q6HR WHILE AWAKE NEB NEB 05/08/17 14:00 05/08/17 19:50 (Lasix Inj) 80 mg BID@0900,1800 IV PUSH 05/08/17 09:00 05/08/17 17:34 Vital Signs / I&O Vital Signs Date Time Temp Pulse Resp B/P (MAP) Pulse Ox O2 Delivery O2 Flow Rate FiO2 05/09/17 06:03 76 05/09/17 05:00 70 05/09/17 04:00 66 05/09/17 03:00 98 Bi-Pap 05/09/17 03:00 72 05/09/17 03:00 97.9 67 20 129/71 (90) 98 05/09/17 02:00 72 05/09/17 01:00 72 05/09/17 00:40 98 50 05/09/17 00:00 72 05/08/17 23:00 97.8 86 18 139/78 (98) 93 05/08/17 23:00 93 Nasal Cannula 4.00 05/08/17 23:00 78 05/08/17 22:00 82 05/08/17 21:00 88 05/08/17 20:00 92 05/08/17 19:54 92 Nasal Cannula 5.00 05/08/17 19:00 92 Nasal Cannula 4.00 05/08/17 19:00 86 05/08/17 19:00 97.8 91 20 128/62 (84) 92 05/08/17 18:00 84 05/08/17 17:00 82 05/08/17 16:00 79 05/08/17 15:47 93 Nasal Cannula 4.00 05/08/17 15:47 98.0 87 22 140/73 (95) 93 05/08/17 15:00 77 05/08/17 14:00 80 05/08/17 13:00 85 05/08/17 12:00 92 05/08/17 11:43 93 Nasal Cannula 4.00 05/08/17 11:02 97.8 75 22 153/69 (97) 93 05/08/17 11:00 74 05/08/17 10:00 75 05/08/17 09:00 89 I/O 05/08/17 05/08/17 05/08/17 05/09/17 05/09/17 05/09/17 07:00 15:00 23:00 07:00 15:00 23:00 Intake Total 1070 ml 1237 ml 1310 ml Output Total 1000 ml 1100 ml 1100 ml Balance 70 ml 137 ml 210 ml Intake Oral 720 ml 840 ml 960 ml IV Total 350 ml 397 ml 350 ml Output Urine Total 1000 ml 1100 ml 1100 ml Physical Exam GENERAL: Well-developed well-nourished. In no acute distress. NECK: No carotid bruits. No JVD. CARDIOVASCULAR: Regular rate and rhythm. No murmur appreciated. RESPIRATORY: No accessory muscle use. Bibasilar crackles. Some expiratory wheezing. MUSCULOSKELETAL: Left lower extremity with venous stasis skin changes, left ankle ulcer, 1+ edema, nonpalpable pedal and popliteal pulses. Right lower extremity with 2+ lower extremity pulses and no edema. NEUROLOGICAL: Awake and alert. Normal speech. Laboratory Laboratory Tests Test 05/08/17 22:35 05/09/17 04:02 Vancomycin Level Trough 26.6 MCG/ML White Blood Count 13.6 TH/MM3 Red Blood Count 4.49 MIL/MM3 Hemoglobin 12.8 GM/DL Hematocrit 37.8 % Mean Corpuscular Volume 84.3 FL Mean Corpuscular Hemoglobin 28.4 PG Mean Corpuscular Hemoglobin Concent 33.7 % Red Cell Distribution Width 14.2 % Platelet Count 509 TH/MM3 Mean Platelet Volume 8.5 FL Neutrophils (%) (Auto) 83.6 % Lymphocytes (%) (Auto) 7.7 % Monocytes (%) (Auto) 7.0 % Eosinophils (%) (Auto) 1.0 % Basophils (%) (Auto) 0.7 % Neutrophils # (Auto) 11.4 TH/MM3 Lymphocytes # (Auto) 1.1 TH/MM3 Monocytes # (Auto) 1.0 TH/MM3 Eosinophils # (Auto) 0.1 TH/MM3 Basophils # (Auto) 0.1 TH/MM3 CBC Comment DIFF FINAL Differential Comment Blood Urea Nitrogen 24 MG/DL Creatinine 1.03 MG/DL Random Glucose 120 MG/DL Calcium Level 8.7 MG/DL Sodium Level 143 MEQ/L Potassium Level 3.5 MEQ/L Chloride Level 105 MEQ/L Carbon Dioxide Level 33.9 MEQ/L Anion Gap 4 MEQ/L Estimat Glomerular Filtration Rate 72 ML/MIN Imaging Last Impressions Ankle MRI 05/08/17 0000 Signed Impressions: Service Date/Time: Monday, May 08, 2017 09:48 - CONCLUSION: 1. Abnormal marrow edema within the lateral malleolus and subtle contrast enhancement. Findings are concerning for osteomyelitis. 2. Cellulitic changes in the soft tissues around the lateral aspect of the foot and ankle. Huseyin Muñoz MD Chest X-Ray 05/06/17 0000 Signed Impressions: Service Date/Time: Saturday, May 06, 2017 10:19 - CONCLUSION: Acute central and perihilar interstitial vascular prominence characteristic of pulmonary edema. Mild patchy airspace disease in the bases. Dylan Shipman MD Ankle X-Ray 05/04/17 0000 Signed Impressions: Service Date/Time: Thursday, May 04, 2017 15:27 - CONCLUSION: Mild degenerative type changes. Otherwise, unremarkable exam for patient's age. Lee Yao MD (Solomon Henderson) Assessment and Plan Assessment and Plan 71-year-old male with a past medical history of DM, HTN who presented for left lower extremity swelling, ulcer, and pain. He was found to have EKG changes in the ED. abnormal EKG/NSTEMI: Will need LHC, tentatively today. Acute systolic CHF: Echo with reduced systolic function, EF 35-40 %. Increased IV Lasix to 80 mg twice a day. Sodium restrictions. Strict I's and O's. + infection LLE/poor circulation with PAD: continue IV antibiotics. Podiatry on board. Will need LLE peripheral angiogram, tentatively today. Shortness of breath/COPD exacerbation: Nebs. (Solomon Henderson) Assessment and Plan LHC - multivessel dz [employer] LLE (Jonny Melchor MD) Solomon Henderson May 09, 2017 08:10 Jonny Melchor MD May 09, 2017 11:54
[2017-05-09] MEDS ORDERED: HEPARIN-NS/PF INJ 1,000 ML ONE (08:29)
[2017-05-09] MEDS ORDERED: MIDAZOLAM HCL 2 MG/2 ML VIAL ONE ×2 (08:31→09:58)
[2017-05-09] MEDS: SODIUM CHLORIDE 0.9% FLUSH 10 ML FLUSH IV FLUSH SCH ×2 (09:00→20:52)
[2017-05-09] MEDS: DOCUSATE SODIUM 50 MG/SENNA 8.6 MG TAB PO SCH ×2 (09:00→21:00)
[2017-05-09] MEDS: COLLAGENASE OINT 30 GM TUBE TOPICAL SCH (09:00)
[2017-05-09] MEDS ORDERED: HEPARIN SODIUM - IV 10,000 UNITS/10 ML VIAL ONE (09:29)
[2017-05-09] MEDS ORDERED: ADENOSINE IV SOLN 3 MG/ML 2 ML VIAL ONE (09:34)
[2017-05-09] MEDS ORDERED: SODIUM CHLOR 0.9% 1000 ML INJ 1,000 ML IV SCH (10:30)
[2017-05-09] MEDS ORDERED: SODIUM CHLOR 0.9% 250 ML INJ 250 ML IV PRN (10:30)
[2017-05-09] MEDS ORDERED: BACITRACIN OINT 0.9 GM PKT TOP ONE (10:30)
[2017-05-09] MEDS ORDERED: ATROPINE SULFATE 1 MG/ML VIAL IV PUSH PRN (10:30)
[2017-05-09] MEDS ORDERED: LIDOCAINE HCL 1% 50 ML VIAL INFIL PRN (10:30)
[2017-05-09] MEDS ORDERED: MISC INFORMATION XX ONE (10:30)
--- NOTE | 2017-05-09 11:13 | MA ---
cc: KEYANA ARRIAGA DATE 05/09/2017 INDICATION [id number] HI. Nonhealing left lower extremity ulcer. METHOD The risks, benefits and alternatives discussed with the patient. The patient understood and consented to the procedure. PROCEDURE The patient brought into the catheterization lab, placed on the catheterization table. The right groin was prepped and draped in a sterile fashion. The right groin was anesthetized with 2% lidocaine. The right common femoral artery is cannulated and a 5-Indonesian 11 cm sheath was placed without difficulty. CORONARY ANGIOGRAPHY 1. Left main coronary artery has minor luminal irregularities. 2. Left anterior descending coronary proximally has mild calcium present, 20% stenosis. There is a moderate-sized first diagonal branch with 40% proximal stenosis. In the mid left anterior descending coronary artery just beyond the takeoff of the first diagonal branch is a 90% calcific stenosis. There is a second diagonal branch which has minor luminal irregularities. The distal left anterior descending coronary artery has 80% diffuse stenosis, but does open up towards the apex with only minor luminal irregularities. 3. Left circumflex gives rise to two small obtuse marginal branches. There is a 99% subtotal occlusion proximally. 4. Right coronary artery is dominant vessel giving rise to a posterior descending branch. The right coronary is diffusely disease, heavily calcified with subtotal occlusion in the proximal and mid segment. The posterior descending branch is collateralized from [id number] via septal perforators. DESCENDING AORTOGRAPHY Descending aortography was performed anterior-posterior views using a 24 cc contrast injection. Good opacification. Descending aortography revealed mild infrarenal descending aortic atherosclerosis. LEFT LOWER EXTREMITY PERIPHERAL ANGIOGRAPHY The left common and internal iliac arteries have minor luminal irregularities. Left external iliac artery has a 90% tubular stenosis. The left common femoral, profunda, and superficial femoral arteries have minor luminal irregularities. Left popliteal has minor luminal irregularities. The left anterior tibial is occluded. The left peroneal vessel is small caliber size, rather diffusely diseased, diffuse 50-60% stenosis throughout. The posterior tibial peroneal trunk has a 75% stenosis in the proximal mid segment and does reach around the ankle to feed the anterior tibial and dorsalis pedis via collateralization. PERIPHERAL INTERVENTION To help improve wound healing, we will try to establish inflow but avoid placing a stent given recent infection and need for bypass surgery. A 6-Indonesian 45 cm Terumo Destination pinnacle sheath was advanced up-and-over the arch into the left common iliac artery. 0.035 inches 260 cm stiff angle glide wire was navigated down the distal popliteal artery. A 0.035 inch trailblazer catheter advanced behind it. Glidewire removed. A 0.014 inches Randolph-ST 300 cm wire was advanced down the distal posterior tibial artery and the trailblazer catheter removed. An 8.0 x 20 mm Medtronic balloon was then deployed to 6 atmospheres in the left external iliac artery. Both nitroglycerin and adenosine was administered on sequential injections to improve distal runoff to avoid no reflow phenomenon. A 1.5 mm CSI atherectomy catheter was then prepped, advanced over the arch. Orbital rotational atherectomy was performed on one pass at 60,000 revolutions per minute in the posterior tibial trunk and posterior tibial artery. A 4.0 x 80 mm Medtronic balloon was then advanced down over the wire and deployed on two sequential inflations through the posterior tibial and posterior tibial-peroneal trunk. Repeat angiography showed MARJORIE-III flow. There was a non-flow limiting dissection which hopefully will heal. We really wanted to avoid any stent placement. Monitor closely for a period time it remained patent with good runoff. The sheath was then removed and a 6-Indonesian short sheath placed to be removed with manual hemostasis. Heparin was administered throughout the entire procedure to maintain appropriate anticoagulation. CONCLUSIONS 1. Severe multivessel coronary artery disease. 2. Mild infrarenal descending aortic atherosclerosis. 3. Severe left external iliac and infrapopliteal disease in the lower extremity. 4. Successful percutaneous transluminal angioplasty of the left external iliac artery. 5. Successful orbital rotational atherectomy and balloon angioplasty of the left peroneal artery. PLAN Hopefully this will improve wound healing in the left lower extremity. We will hold off on administration of any Plavix for now until CT surgery evaluates him for consideration of bypass surgery and whether they will do that now or let him heal the wound and bring him back more electively. If they decide not to proceed with open heart surgery at this time, then we will load him with Plavix. There is no metal left in the left lower extremity so his risk for acute thrombosis should not be increased. Once the sheath is removed, if no bleeding, may consider heparin until transition to Plavix or CABG. MD HANNAH Sequeira /10:11 AM /10:45 AM
[2017-05-09] MEDS: ATORVASTATIN 40 MG TAB PO SCH (11:48)
[2017-05-09] MEDS: ENALAPRIL MALEATE 10 MG TAB PO SCH ×2 (11:48→21:53)
[2017-05-09] MEDS: POTASSIUM CHLORIDE 20 MEQ CONTROLLED RELEASE TAB PO SCH ×2 (11:48→20:40)
[2017-05-09] MEDS: METOPROLOL TARTRATE 25 MG TAB PO SCH ×2 (11:48→20:40)
[2017-05-09] MEDS: ASPIRIN EC 81 MG TABEC PO SCH (11:49)
[2017-05-09] MEDS: INSULIN DETEMIR 100 UNITS/ML VIAL SQ SCH ×2 (11:49→20:40)
--- NOTE | 2017-05-09 13:33 | PD.CAR.PN ---
CVT Progress Note Subjective/Hospital Course: pt seen and eval, full consult to follow sts data discussed with pt RISK SCORES About the STS Risk Calculator Procedure: CAB Only Risk of Mortality: 4.035% Morbidity or Mortality: 28.488% Long Length of Stay: 17.113% Short Length of Stay: 19.83% Permanent Stroke: 1.413% Prolonged Ventilation: 20.114% DSW Infection: 2.045% Renal Failure: 7.15% Reoperation: 9.864% will need clearance from ID regarding wound infection/ ? osteomyelitis Objective: Vital Signs Date Time Temp Pulse Resp B/P (MAP) Pulse Ox O2 Delivery O2 Flow Rate FiO2 05/09/17 13:14 97 40 05/09/17 13:12 95 Bi-Pap 05/09/17 13:00 79 24 135/55 (81) 98 05/09/17 13:00 80 05/09/17 12:40 93 Non-Rebreather 15.00 05/09/17 12:00 84 05/09/17 12:00 80 20 166/76 (106) 90 05/09/17 11:37 93 Nasal Cannula 4.00 05/09/17 11:37 97.4 88 22 142/57 (85) 93 05/09/17 11:00 85 05/09/17 11:00 80 156/67 (96) 05/09/17 08:00 78 05/09/17 07:36 98.6 78 22 133/68 (89) 94 05/09/17 07:36 94 Nasal Cannula 4.00 05/09/17 07:00 73 05/09/17 06:03 76 05/09/17 05:00 70 05/09/17 04:00 66 05/09/17 03:00 98 Bi-Pap 05/09/17 03:00 72 05/09/17 03:00 97.9 67 20 129/71 (90) 98 05/09/17 02:00 72 05/09/17 01:00 72 05/09/17 00:40 98 50 05/09/17 00:00 72 05/08/17 23:00 97.8 86 18 139/78 (98) 93 05/08/17 23:00 93 Nasal Cannula 4.00 05/08/17 23:00 78 05/08/17 22:00 82 05/08/17 21:00 88 05/08/17 20:00 92 05/08/17 19:54 92 Nasal Cannula 5.00 05/08/17 19:00 92 Nasal Cannula 4.00 05/08/17 19:00 86 05/08/17 19:00 97.8 91 20 128/62 (84) 92 05/08/17 18:00 84 05/08/17 17:00 82 05/08/17 16:00 79 05/08/17 15:47 93 Nasal Cannula 4.00 05/08/17 15:47 98.0 87 22 140/73 (95) 93 05/08/17 15:00 77 05/08/17 14:00 80 Labs: Laboratory Tests Test 05/09/17 04:02 White Blood Count 13.6 TH/MM3 (4.0-11.0) Red Blood Count 4.49 MIL/MM3 (4.50-5.90) Hemoglobin 12.8 GM/DL (13.0-17.0) Hematocrit 37.8 % (39.0-51.0) Mean Corpuscular Volume 84.3 FL (80.0-100.0) Mean Corpuscular Hemoglobin 28.4 PG (27.0-34.0) Mean Corpuscular Hemoglobin Concent 33.7 % (32.0-36.0) Red Cell Distribution Width 14.2 % (11.6-17.2) Platelet Count 509 TH/MM3 (150-450) Mean Platelet Volume 8.5 FL (7.0-11.0) Neutrophils (%) (Auto) 83.6 % (16.0-70.0) Lymphocytes (%) (Auto) 7.7 % (9.0-44.0) Monocytes (%) (Auto) 7.0 % (0.0-8.0) Eosinophils (%) (Auto) 1.0 % (0.0-4.0) Basophils (%) (Auto) 0.7 % (0.0-2.0) Neutrophils # (Auto) 11.4 TH/MM3 (1.8-7.7) Lymphocytes # (Auto) 1.1 TH/MM3 (1.0-4.8) Monocytes # (Auto) 1.0 TH/MM3 (0-0.9) Eosinophils # (Auto) 0.1 TH/MM3 (0-0.4) Basophils # (Auto) 0.1 TH/MM3 (0-0.2) CBC Comment DIFF FINAL Differential Comment Blood Urea Nitrogen 24 MG/DL (7-18) Creatinine 1.03 MG/DL (0.60-1.30) Random Glucose 120 MG/DL (74-106) Calcium Level 8.7 MG/DL (8.5-10.1) Sodium Level 143 MEQ/L (136-145) Potassium Level 3.5 MEQ/L (3.5-5.1) Chloride Level 105 MEQ/L (98-107) Carbon Dioxide Level 33.9 MEQ/L (21.0-32.0) Anion Gap 4 MEQ/L (5-15) Estimat Glomerular Filtration Rate 72 ML/MIN (>89) Result Diagram: 05/09/1740105/09/17401 Teresa Peterson May 09, 2017 13:33
--- NOTE | 2017-05-09 14:27 | HHI.PR ---
Subjective Remarks Patient had episode of respiratory distress and desatt'ed into the 80s, was not coming up even with norebreather so was placed on bipap which he is tolerating well. Currently does not have shortness of breath. No chest pain. Patient underwent cardiac cath this morning showing multi-vessel disease and CT surgery was consulted for CABG. Patient does endorse 40 pack year tobacco use, and says he does have COPD, but does not use inhalers and typically is not short of breath at home. Not followed by conservator artifacts. Objective Vitals Vital Signs Date Time Temp Pulse Resp B/P (MAP) Pulse Ox O2 Delivery O2 Flow Rate FiO2 05/09/17 13:38 96 BiPAP 80 05/09/17 13:38 96 80 05/09/17 13:14 97 40 05/09/17 13:12 95 Bi-Pap 05/09/17 13:00 79 24 135/55 (81) 98 05/09/17 13:00 80 05/09/17 12:40 93 Non-Rebreather 15.00 05/09/17 12:00 84 05/09/17 12:00 80 20 166/76 (106) 90 05/09/17 11:37 93 Nasal Cannula 4.00 05/09/17 11:37 97.4 88 22 142/57 (85) 93 05/09/17 11:00 85 05/09/17 11:00 80 156/67 (96) 05/09/17 10:45 85 139/57 (84) 05/09/17 10:30 87 133/58 (83) 05/09/17 08:00 78 05/09/17 07:36 98.6 78 22 133/68 (89) 94 05/09/17 07:36 94 Nasal Cannula 4.00 05/09/17 07:00 73 05/09/17 06:03 76 05/09/17 05:00 70 05/09/17 04:00 66 05/09/17 03:00 98 Bi-Pap 05/09/17 03:00 72 05/09/17 03:00 97.9 67 20 129/71 (90) 98 05/09/17 02:00 72 05/09/17 01:00 72 05/09/17 00:40 98 50 05/09/17 00:00 72 05/08/17 23:00 97.8 86 18 139/78 (98) 93 05/08/17 23:00 93 Nasal Cannula 4.00 05/08/17 23:00 78 05/08/17 22:00 82 05/08/17 21:00 88 05/08/17 20:00 92 05/08/17 19:54 92 Nasal Cannula 5.00 05/08/17 19:00 92 Nasal Cannula 4.00 05/08/17 19:00 86 05/08/17 19:00 97.8 91 20 128/62 (84) 92 05/08/17 18:00 84 05/08/17 17:00 82 05/08/17 16:00 79 05/08/17 15:47 93 Nasal Cannula 4.00 05/08/17 15:47 98.0 87 22 140/73 (95) 93 05/08/17 15:00 77 I/O 05/08/17 05/08/17 05/08/17 05/09/17 05/09/17 05/09/17 07:00 15:00 23:00 07:00 15:00 23:00 Intake Total 1070 ml 1237 ml 1310 ml Output Total 1000 ml 1100 ml 1100 ml Balance 70 ml 137 ml 210 ml Intake Oral 720 ml 840 ml 960 ml IV Total 350 ml 397 ml 350 ml Output Urine Total 1000 ml 1100 ml 1100 ml Result Diagram: 05/09/17 0402 05/09/17 0402 Objective Remarks GENERAL: Well-nourished, well-developed pleasant 71-year-old male patient. SKIN: Warm and dry. HEAD: Normocephalic. EYES: No scleral icterus. No injection or drainage. NECK: Supple, trachea midline. No JVD or lymphadenopathy. CARDIOVASCULAR: Regular rate and rhythm without murmurs, gallops, or rubs. RESPIRATORY: Lateral lung costa with crackles unable to auscultate posteriorly as he is status post left heart catheterization. Mild accessory muscle use on BiPAP, tolerating it well. GASTROINTESTINAL: Abdomen soft, non-tender, nondistended. EXTREMITIES: No cyanosis, or edema. NEUROLOGICAL: Awake, alert, and oriented x 3. Non-focal. Procedures None A/P Assessment and Plan 1. Acute respiratory failure suspect due to pulmonary edema from acute systolic CHF, EF 30%. Stat chest x-ray ordered and I reviewed the images shows pulmonary edema more pronounced on the right lung field. We'll give Lasix 100 mg IV push. Continue Lasix diuresis. Place Tyson catheter. Stat ABG ordered and reviewed pH 7.4 PCO2 42 and PO2 66 on BiPAP setting of 12/5 FiO2 of 60%. Patient currently is tolerating BiPAP well although RT notes that when he drops his chin he does obstruct and desaturate. -cont bipap, IV diuresis -KCl 20 meq PO BID -cont BB and ACEi -follow BMP and urine output via tyson 2. Sepsis due to Diabetic foot ulcer with infection and osteomyelitis, Left lower ext cellulitis, also has PAD - Patient met sepsis criteria with elevated white count of 18.5, tachycardia with heart rate of 94 and source of left leg cellulitis and open diabetic left ankle ulcer. - X ray of the left ankle is unremarkable. MRI shows abnormal marrow edema within the lateral malleolus concerning for osteomyelitis. - Suspect underlying PAD. - IV vancomycin and Zosyn. Consulted pharmacy to dose. will monitor the response. - blood cultures negative so far/ wound culture with MRSA and strep - consulted wound care nurse. - podiatry consult appreciated -Consult infectious disease consult - s/p left lower extremity angiogram with balloon angioplasty in the left external iliac artery, and angioplasty and atherectomy in the posterior tibial and posterior tibial peritoneal trunk by Dr. casarez. no stent placed due to ongoing infection and need for CABG 3. NSTEMI - Cardiology following. Status post left heart catheterization today with Dr. casarez showing 80% stenosis in the distal LAD, 99% occlusion of the left circumflex, diffusely diseased right coronary artery CT surgery consulted for consideration of CABG, however infection is to be under control first - continue ASA and statin, metoprolol, enalapril 20 mg PO BID. - Started Metoprolol 25mg BID. - echo with EF 35% - telemetry. 4. Hypertension - Continue Norvasc, enalapril and metoprolol - Hold home dose of hydrochlorothiazide 25 mg daily for now. - Monitor blood pressure and adjust treatment accordingly. 5. Diabetes Mellitus. - Hemoglobin A1c 7.3%. - cont levemir to 5 units subq bid, continue sliding scale insulin with Aspart. May need pre-meal coverage. 6. Hypokalemia - replaced. 7. COPD, 40 pack year tobacco history 8. DVT prophylaxis; will start on chemical prophylaxis after planned procedures. No SCDs due to the ankle wound. Critical care time 35 minutes. Milagro Lin MD May 09, 2017 14:27
[2017-05-09] MEDS ORDERED: FUROSEMIDE 100 MG/10 ML VIAL IV PUSH ONE (14:30)
[2017-05-09 14:37] LABS: BLOOD GAS BASE EXCESS 3.1 mmol/L (-2-2); BLOOD GAS CARBOXYHEMOGLOBIN 0.5 % (0-4); BLOOD GAS HCO3 27 mmol/L (22-26); BLOOD GAS METHEMOGLOBIN 1.2 % (0-2); BLOOD GAS O2 HGB SATURATION 90 % (90-100); BLOOD GAS OXYGEN CONTENT 15.6 Vol % (12.0-20.0); BLOOD GAS PCO2 42 mmHg (38-42); BLOOD GAS PO2 66 mmHg (61-120); BLOOD GAS TOTAL HGB 12.3 G/DL (12.0-16.0); TEMP CORR TO 98.6
[2017-05-09 14:38] LABS: CRITICAL VALUE NO; DRAW SITE ART LINE; FIO2 60 %; NUMBER OF ARTERIAL PUNCTURES 0; STAT YES; ULNAR PULSE PRESENT
--- NOTE | 2017-05-09 15:05 | RADRPT ---
EXAM DATE/TIME: 05/09/2017 14:13 [facility] COMPARISON: CHEST SINGLE AP, May 06, 2017, 10:19. INDICATIONS : Short of breath, respiratory failure MEDICAL HISTORY : Hypertension. Diabetes mellitus type 2. Chronic obstructive pulmonary SURGICAL HISTORY : None. ENCOUNTER: Subsequent ACUITY: 4 - 6 days PAIN SCORE: 0/10 LOCATION: chest FINDINGS: Progression of diffuse patchy airspace disease in the right lung with continued airspace disease in t he left lung base. Cardiac silhouette is enlarged with diffuse interstitial prominence and indistinct central pulmonary vascularity. Remainder of the exam is unchanged. CONCLUSION: 1. Cardiomegaly with pulmonary vascular congestion pattern. 2. Progression of patchy airspace disease throughout the right lung which may reflect atypical pulmon brad edema pattern. 3. Stable left lower lung zone patchy airspace disease. Alexander Posada MD on May 09, 2017 at 15:00 Board Certified Radiologist. This report was verified electronically.
--- NOTE | 2017-05-09 15:14 | MB ---
cc: FLAVIA CASTRO DATE OF CONSULTATION: 05/09/[address] Chito Wahl. MASK LAYOUT DESIGNER Dr. Jonny Melchor. HISTORY OF PRESENT ILLNESS The patient was admitted on the , presented with complaint of worsening infection in his left ankle that he has had off and on for the last 3 weeks. He had a open wound on the outside aspect of the ankle. He has longstanding history of diabetes on insulin. He has also been complaining of some increased weakness and fatigue for the past 6 months. He said he had normally ambulated unassisted, was having more difficulty getting around due to the weakness and discomfort. Incidentally on admission he had EKG done which showed some ST elevation in lead II only, however, he did have some T-wave depression in the lateral leads, some poor R-wave progression, no prior EKG to compare. He then had a troponin elevated at 1.26. He was ruled in for non-STEMI. He was taken then to the supervisor laboratory animal facility by Dr. Melchor this morning which showed the LAD approximately 20% stenosis, moderate sized diagonal branches, 40% proximal stenosis, the LAD beyond the takeoff of the diagonal was 90% stenosed, the second diagonal branch had some luminal irregularities, the LAD distal had 80% lesion, left circ had a 99% subtotal occlusion and the right coronary artery had heavily calcified subtotal occlusion, ejection fraction approximately 35%. We were consulted to evaluate for coronary artery bypass grafting. PAST MEDICAL HISTORY The patient's past medical history is significant for: 1. Hypertension. 2. Uncontrolled diabetes mellitus. 3. COPD with ongoing tobacco use. PAST SURGICAL HISTORY Surgeries include: 1. Excision of melanoma from the face. 2. He has had this chronic wound on his left ankle for about 3 weeks. The patient has been seen by podiatry in the meantime for this left ankle lateral ulcer associated with some cellulitis. He also had some right foot dorsal digit ulcers and a fifth metatarsal head lesion which was debrided at the bedside. They did however, order an ankle MRI which showed questionable osteomyelitis and cellulitic changes in the soft tissue around the foot and ankle. At this time his blood cultures are negative from the , however, the wound ankle did show staph aureus MRSA, group A beta strep. ALLERGIES ACETAMINOPHEN, CODEINE, DARVON. MEDICATIONS Home medications include: 1. Tizanidine. 2. Amlodipine. 3. Enalapril. 4. Tramadol. 5. Hydrochlorothiazide. 6. Metformin. 7. Novolin 70/30; 30 units b.i.d. 8. Glipizide 2.5 p.o. b.i.d. FAMILY HISTORY Mother from a stroke. Father from complications of Alzheimer's. SOCIAL HISTORY The patient is . [place] , [place], [place] He has two children, locally has a cousin that lives nearby. He continues to smoke, he has been smoking for 40 years, two packs per day. No alcohol. REVIEW OF SYSTEMS GENERAL: No night sweats, fever, heat and cold intolerance. SKIN: No psoriasis, itching or hives. HEENT: No blurred vision, hearing loss. RESPIRATORY: Positive for recent shortness of breath. No cough. CARDIOVASCULAR: The patient denies any chest pain. No paroxysmal nocturnal dyspnea. No orthopnea. He has chronic leg pain. GASTROINTESTINAL: No diarrhea, vomiting. GENITOURINARY: No burning, frequency, urgency. SOCIAL RESEARCH ASSISTANT: Positive for diabetes. No hypothyroidism. PHYSICAL EXAMINATION VITAL SIGNS: Blood pressure 130/60, heart rate 80, temperature max 97.4. The patient is currently on nasal cannula, O2 sat is 97%. GENERAL: The patient is awake, alert, somewhat of a poor historian. HEENT: Head is normocephalic, atraumatic. Pupils equal and reactive. Oral mucosa pink, moist. NECK: Supple. No JVD. HEART: Heart sounds S1-S2, regular rate and rhythm. No audible rubs, murmurs, gallops. LUNGS: Diminished in the bases. No wheezes, rales or rhonchi. ABDOMEN: Soft, nontender. No masses or organomegaly. EXTREMITIES: Reveal palpable pulses to the right foot, however he has Doppler pulses only to the left. He has some chronic venostasis to the left lower extremity. He has some area of erythema, some induration to the left lower leg. He has a wound on the lateral aspect of his ankle, non-draining, dry. LABORATORY FINDINGS Shows hemoglobin 12, hematocrit of 37, white cell count 13, platelet count 509, sodium of 143, potassium 3.5, BUN 24, creatinine 1.03, BNP was 1100, troponin was 1.26. Initial blood gas on admission showed a pH 743, CO2 of 36, pO2 of 74 with a bicarb of 24. Negative urine drug screen. Microbiology as above. IMAGING STUDIES Other radiological exams: Chest x-ray showed some increased interstitial changes, prominence with some concern for pulmonary edema, mild patchy airspace disease in the basis, and this was on the 10th. EKG As above. IMPRESSION This is a 71-year-old male, currently admitted with left ankle wound infection, questionable osteomyelitis. Infectious disease has been consulted and will need to be cleared for potential surgery. In the meantime, the patient has multiple multivessel coronary disease with ejection fraction of 35% and will need surgery once cleared by infectious disease. Ejection fraction is 35%, would maximize medical therapy in the meantime and will reevaluate once we get clearance from infectious disease. Dictated by: YANA Mars Flavia MD SADIE Macias/EVANGELISTA /1:33 PM /2:57 PM
[2017-05-09] MEDS: FUROSEMIDE 100 MG/10 ML VIAL IV PUSH SCH (18:05)
--- NOTE | 2017-05-09 19:02 | RADRPT ---
EXAM DATE/TIME: 05/09/2017 17:48 [facility] COMPARISON: No previous studies available for comparison. INDICATIONS : PreOp Cardiac Surgery. MEDICAL HISTORY : Hypercholesterolemia. Hypertension. COPD. Dyspnea. UTI. Osteoarthritis. Diabetes. Skin cancer. MRSA . Fatigue. SURGICAL HISTORY : Left hand surgery. ENCOUNTER: Initial ACUITY: 1 day PAIN SCORE: 3/10 LOCATION: Bilateral leg. GREATER SAPHENOUS VEIN THIGH: PROXIMAL: Right 6 mm Left 6 mm MID: Right 3 mm Left 3 mm DISTAL: Right 4 mm Left 3 mm CALF: PROXIMAL: Right 2 mm Left 4 mm MID: Right 2 mm Left 3 mm DISTAL: Right 2 mm Left 2 mm FINDINGS: The venous system of the lower extremities are patent by color Doppler imaging. Measurements of the leg veins (in mm) are listed above. CONCLUSION: 1. Venous mapping measurements as above. Theo Allen MD on May 09, 2017 at 19:00 Board Certified Radiologist. This report was verified electronically.
--- NOTE | 2017-05-09 19:03 | RADRPT ---
EXAM DATE/TIME: 05/09/2017 18:07 [facility] COMPARISON: No previous studies available for comparison. INDICATIONS : PreOp Cardiac Surgery. MEDICAL HISTORY : Cardiac disorder. Hypercholesterol. Hyperlipidemia. Hypertension. COPD. Diabetic. SURGICAL HISTORY : Left hand surgery. ENCOUNTER: Initial ACUITY: 1 day PAIN SCORE: 3/10 LOCATION: Bilateral neck PEAK SYSTOLIC VELOCITIES (cm/sec): ICA/CCA RATIO: Right: 0.8 Left: 0.8 ICA: Right: 59 Left: 53 CCA: Right: 74 Left: 62 ECA: Right: 179 Left: 52 VERTEBRAL: Right: 57 antegrade Left: 46 antegrade Elevated flow velocities and ICA/CCA ratios have been found to correlate with increased degrees of vessel stenosis, calculated as percentage of diameter relative to a normal segment of distal ICA/CCA FINDINGS: RIGHT CAROTID: No significant stenosis is visualized. The waveforms are within normal limits. LEFT CAROTID: No significant stenosis is visualized. The waveforms are within normal limits. VERTEBRAL ARTERIES: Antegrade flow is seen in both vertebral arteries. MISCELLANEOUS: None. CONCLUSION: 1. Moderate calcified plaque around the carotid bifurcations bilaterally without evidence for hemodyn amically significant stenosis. Theo Allen MD on May 09, 2017 at 19:00 Board Certified Radiologist. This report was verified electronically.
--- NOTE | 2017-05-09 19:41 | PD.ID.CON ---
History of Present Illness Service ID Consult Requested By Dr Lin Reason for Consult leukocytosis Primary Care Physician Chito Wahl MD Diagnoses: History of Present Illness 71 year old diabetic male with left ankle lateral ulcer with associated cellulitis and right foot dorsal digital ulcers and 5th met head lesion. Patient states he has had ulcer for a awhile. He is short of breath and it is difficult for him to talk. He states he has not been following with a blanket maker. He reports ankle swelling and redness has been present for 3 weeks. He will undergo a LHC tomorrow presented to ED with STEMI. He had cath today and it showed 3 vessel disease, pt was seen by CT surgeon for CABG and now awaiting clearance He is a poor historian, gives a h/o rednes, uiulcer of L ankle " for a while" MRI suspicious for osteo On preentation leukocytosis peaking to 22 K Growing MRSA, GAS from the wound Heavy tobacco use, 1.5 ppd Review of Systems Except as stated in HPI: all other systems reviewed are Neg Past Family Social History Allergies: Coded Allergies: codeine (Unverified Allergy, Severe, Rash, 05/04/17) propoxyphene (Unverified Allergy, Severe, Nausea/Vomiting, 05/04/17) acetaminophen (Verified Adverse Reaction, Mild, Tachycardia, 05/05/17) Patient given dose had SOB and Tachycardia that passed, previously got dose 12/9 AM without any reaction, 12/10 AM experienced the SOB and Tachycardia Past Medical History HTN DM COPD Past Surgical History facila surgery related to melanome Active Ordered Medications Medications where reviewed in EMR Antibiotics Include: zosyn vancomycin Family History reviewed non contributory Social History + o Tobacco. 2 ppd No ETOH. No Illicit Drugs. Physical Exam Vital Signs Vital Signs Date Time Temp Pulse Resp B/P (MAP) Pulse Ox O2 Delivery O2 Flow Rate FiO2 05/09/17 17:30 98 Venturi Mask 50 05/09/17 17:30 84 05/09/17 16:50 97 50 05/09/17 16:00 78 05/09/17 15:37 98 Bi-Pap 05/09/17 15:37 98.1 70 20 116/67 (83) 98 05/09/17 15:00 71 05/09/17 14:00 70 05/09/17 13:38 96 BiPAP 80 05/09/17 13:38 96 80 05/09/17 13:14 97 40 05/09/17 13:12 95 Bi-Pap 05/09/17 13:00 79 24 135/55 (81) 98 05/09/17 13:00 80 05/09/17 12:40 93 Non-Rebreather 15.00 05/09/17 12:00 84 05/09/17 12:00 80 20 166/76 (106) 90 05/09/17 11:37 93 Nasal Cannula 4.00 05/09/17 11:37 97.4 88 22 142/57 (85) 93 05/09/17 11:00 85 05/09/17 11:00 80 156/67 (96) 05/09/17 10:45 85 139/57 (84) 05/09/17 10:30 87 133/58 (83) 05/09/17 08:00 78 05/09/17 07:36 98.6 78 22 133/68 (89) 94 05/09/17 07:36 94 Nasal Cannula 4.00 05/09/17 07:00 73 05/09/17 06:03 76 05/09/17 05:00 70 05/09/17 04:00 66 05/09/17 03:00 98 Bi-Pap 05/09/17 03:00 72 05/09/17 03:00 97.9 67 20 129/71 (90) 98 05/09/17 02:00 72 05/09/17 01:00 72 05/09/17 00:40 98 50 05/09/17 00:00 72 05/08/17 23:00 97.8 86 18 139/78 (98) 93 05/08/17 23:00 93 Nasal Cannula 4.00 05/08/17 23:00 78 05/08/17 22:00 82 05/08/17 21:00 88 05/08/17 20:00 92 05/08/17 19:54 92 Nasal Cannula 5.00 Physical Exam CONSTITUTIONAL/GENERAL: This is an adequately nourished patient, in no apparent distress. TUBES/LINES/DRAINS: SKIN: No jaundice, rashes, or lesions. Skin temperature appropriate. Not diaphoretic. HEAD: Atraumatic. Normocephalic. EYES: Pupils equal and round and reactive. Extraocular motions intact. No scleral icterus. No injection or drainage. Fundi not examined. ENT: Hearing grossly normal. Nose without bleeding or purulent drainage. Throat without visible erythema, exudates, masses, or lesions. NECK: Trachea midline. Supple, nontender. No palpable thyroid enlargement or nodularity. CARDIOVASCULAR: Regular rate and rhythm without murmurs, gallops, or rubs. No JVD. Peripheral pulses symmetric. RESPIRATORY/CHEST: Symmetric, unlabored respirations. Clear to auscultation. Breath sounds equal bilaterally. No wheezes, rales, or rhonchi. GASTROINTESTINAL: Abdomen soft, non-tender, nondistended. No hepato-splenomegaly , or palpable masses. No guarding. Bowel sounds present. GENITOURINARY: Without palpable bladder distension. Wagoner catheter in place. MUSCULOSKELETAL: Extremities without clubbing, cyanosis, or edema. No joint tenderness or effusion noted. No calf tenderness. No mottling or clubbing. Both feet w/o palpable pulses L ankle with erythema, mild to [place] edema and 3x 3 cm shallow ulceration LYMPHATICS: No palpable cervical or supraclavicular adenopathy. NEUROLOGICAL: Awake and alert. Motor and sensory grossly within normal limits. Follows commands. Clear speech . Moves all extremities. PSYCHIATRIC: No obvious anxiety/depression. no apparent hallucinations or other psychotic thought process. Laboratory Laboratory Tests Test 05/08/17 22:35 05/09/17 04:02 05/09/17 14:27 Vancomycin Level Trough 26.6 White Blood Count 13.6 Red Blood Count 4.49 Hemoglobin 12.8 Hematocrit 37.8 Mean Corpuscular Volume 84.3 Mean Corpuscular Hemoglobin 28.4 Mean Corpuscular Hemoglobin Concent 33.7 Red Cell Distribution Width 14.2 Platelet Count 509 Mean Platelet Volume 8.5 Neutrophils (%) (Auto) 83.6 Lymphocytes (%) (Auto) 7.7 Monocytes (%) (Auto) 7.0 Eosinophils (%) (Auto) 1.0 Basophils (%) (Auto) 0.7 Neutrophils # (Auto) 11.4 Lymphocytes # (Auto) 1.1 Monocytes # (Auto) 1.0 Eosinophils # (Auto) 0.1 Basophils # (Auto) 0.1 CBC Comment DIFF FINAL Differential Comment Blood Urea Nitrogen 24 Creatinine 1.03 Random Glucose 120 Calcium Level 8.7 Sodium Level 143 Potassium Level 3.5 Chloride Level 105 Carbon Dioxide Level 33.9 Anion Gap 4 Estimat Glomerular Filtration Rate 72 Blood Gas Puncture Site ART LINE Blood Gas Patient Temperature 98.6 Blood Gas HCO3 27 Blood Gas Base Excess 3.1 Blood Gas Oxygen Saturation 90 Arterial Blood pH 7.43 Arterial Blood Partial Pressure CO2 42 Arterial Blood Partial Pressure O2 66 Arterial Blood Oxygen Content 15.6 Arterial Blood Carboxyhemoglobin 0.5 Arterial Blood Methemoglobin 1.2 Blood Gas Hemoglobin 12.3 Oxygen Delivery Device BiPAP 12IPAP/5EPAP Blood Gas Inspired Oxygen 60 Date/Time Source Procedure Growth Status 05/04/17 04:35 Blood Peripheral Aerobic Blood Culture - Final NO GROWTH IN 5 DAYS Complete 05/04/17 04:35 Blood Peripheral Anaerobic Blood Culture - Final NO GROWTH IN 5 DAYS Complete 05/05/17 02:51 Wound Ankle Gram Stain - Final Complete 05/05/17 02:51 Wound Culture - Final S. Aureus Mrsa Group A Beta Strep Complete Result Diagram: 05/09/17 0402 05/09/17 0402 Imaging Last Impressions Lower Extremity Ultrasound 05/09/17 0000 Signed Impressions: Service Date/Time: April 17:48 - CONCLUSION: 1. Venous mapping measurements as above. Theo Allen MD Chest X-Ray 05/09/17 0000 Signed Impressions: Service Date/Time: April 14:13 - CONCLUSION: 1. Cardiomegaly with pulmonary vascular congestion pattern. 2. Progression of patchy airspace disease throughout the right lung which may reflect atypical pulmonary edema pattern. 3. Stable left lower lung zone patchy airspace disease. Alexander Posada MD Carotid Artery Ultrasound 05/09/17 0000 Signed Impressions: Service Date/Time: April 18:07 - CONCLUSION: 1. Moderate calcified plaque around the carotid bifurcations bilaterally without evidence for hemodynamically significant stenosis. Theo Allen MD Ankle MRI 05/08/17 0000 Signed Impressions: Service Date/Time: Monday, May 08, 2017 09:48 - CONCLUSION: 1. Abnormal marrow edema within the lateral malleolus and subtle contrast enhancement. Findings are concerning for osteomyelitis. 2. Cellulitic changes in the soft tissues around the lateral aspect of the foot and ankle. Huseyin Muñoz MD Ankle X-Ray 05/04/17 0000 Signed Impressions: Service Date/Time: Thursday, May 04, 2017 15:27 - CONCLUSION: Mild degenerative type changes. Otherwise, unremarkable exam for patient's age. Lee Yao MD Assessment and Plan Assessment and Plan Severe 3 vessel CAD DFI, osteo L lateral malleleous, MRSA , GAS - Clinically aparent PVD Leukocytosis - DFI infection, [place] contributing - improving CHF , not PNA on CXR cont vancomycin dc zosyn PVD work -up needed: low cahnce of cure for chronic osteo in the settings of compromised blood supply timing of surgery should be based on thre cardiac risk, if its urgent/ emergent issue the benefit definetely outweight the risk of possible infectin which is definetely elevated in a pt with active MRSA DFI There are no absolute ID contraindications to the surgery and waiting for resolution of DFI/osteo can put pt into high risk of further cardiac complications Sylvie Cox MD May 09, 2017 19:41
--- NOTE | 2017-05-09 19:50 | RADRPT ---
EXAM DATE/TIME: 05/09/2017 17:40 [facility] COMPARISON: No previous studies available for comparison. INDICATIONS : Pre op cardiac surgery. MEDICAL HISTORY : Hypercholesterolemia. Hypertension. Chronic obstructive pulmonary disease. Hearing loss. Incontinence . Osteoarthritis. Diabetes. Skin cancer. MRSA. SURGICAL HISTORY : Left hand surgery. ENCOUNTER: Initial ACUITY: 1 day PAIN SCORE: 3/10 LOCATION: Bilateral legs. TECHNIQUE: Venous ultrasound of the left and right leg was performed from the inguinal ligament to the proximal calf. Real-time, color Doppler and spectral tracing, compression and augmentation techniques were us ed. FINDINGS: RIGHT LEG: There is normal compressibility of the deep venous system from the inguinal region to the proximal ca lf. No echogenic clot is seen in the lumen of the common femoral, femoral, popliteal, and posterior tibial veins. There is a normal response of the venous system to proximal and distal augmentation an d respiration. LEFT LEG: There is normal compressibility of the deep venous system from the inguinal region to the proximal ca lf. No echogenic clot is seen in the lumen of the common femoral, femoral, popliteal, and posterior tibial veins. There is a normal response of the venous system to proximal and distal augmentation an d respiration. CONCLUSION: Normal examination. Theo Allen MD on May 09, 2017 at 19:48 Board Certified Radiologist. This report was verified electronically.
[2017-05-09] MEDS: VANCOMYCIN INJ 1,250 MG in SODIUM CHLOR 0.9% 250 ML INJ 250 ML IV SCH (23:51)
[2017-05-10] VITALS (13 sets, daily range): BP systolic 126–142; BP diastolic 72–85; PULSE 67–98; RESP 18–23; TEMP 98.2–98.5; O2SAT 87–97
[2017-05-10 05:58] LABS: HEMATOCRIT 38.4 % (39.0-51.0); MEAN CELL VOLUME 85.5 FL (80.0-100.0); MEAN CORPUSCULAR HEMOGLOBIN 27.5 PG (27.0-34.0); MEAN CORPUSCULAR HGB CONC 32.2 % (32.0-36.0); PLATELET COUNT 505 TH/MM3 (150-450); RED BLOOD COUNT 4.49 MIL/MM3 (4.50-5.90); RED CELL DISTRIBUTION WIDTH 14.5 % (11.6-17.2); REVIEW FLAG FINAL; WHITE BLOOD COUNT 13.3 TH/MM3 (4.0-11.0)
[2017-05-10 06:22] LABS: BICARBONATE 32.6 MEQ/L (21.0-32.0)
[2017-05-10] MEDS: RESP: ALBUTEROL 2.5 MG/IPRATROPIUM 0.5 MG NEB (SCH) NEB ×3 (07:35→19:12)
[2017-05-10] MEDS: SODIUM CHLORIDE 0.9% FLUSH 10 ML FLUSH IV FLUSH SCH ×2 (08:37→21:00)
[2017-05-10] MEDS: INSULIN ASPART SUPPLEMENTAL SCALE SQ SCH ×4 (08:37→22:09)
[2017-05-10] MEDS: INSULIN DETEMIR 100 UNITS/ML VIAL SQ SCH ×2 (08:38→22:09)
[2017-05-10] MEDS: FUROSEMIDE 100 MG/10 ML VIAL IV PUSH SCH ×2 (08:38→17:46)
[2017-05-10] MEDS: ENALAPRIL MALEATE 10 MG TAB PO SCH ×2 (08:38→22:11)
[2017-05-10] MEDS: DOCUSATE SODIUM 50 MG/SENNA 8.6 MG TAB PO SCH ×2 (08:38→21:00)
[2017-05-10] MEDS: METOPROLOL TARTRATE 25 MG TAB PO SCH ×2 (08:39→22:11)
[2017-05-10] MEDS: ATORVASTATIN 40 MG TAB PO SCH (08:39)
[2017-05-10] MEDS: ASPIRIN EC 81 MG TABEC PO SCH (08:39)
[2017-05-10] MEDS: COLLAGENASE OINT 30 GM TUBE TOPICAL SCH (08:39)
--- NOTE | 2017-05-10 09:07 | PD.CARD.PN ---
Subjective Subjective Remarks No chest pain or shortness of breath. Lower extremity pain is improved. (Solomon Henderson) Objective Medications Current Medications Medications (Trade) Dose Ordered Sig/Tatyana Route Start Time Stop Time Status Last Admin (NS Flush) 2 ml UNSCH PRN IV FLUSH 05/04/17 08:15 05/05/17 17:26 (NS Flush) 2 ml BID IV FLUSH 05/04/17 09:00 05/10/17 08:37 (Tylenol) 650 mg Q4H PRN PO 05/04/17 08:15 05/05/17 03:15 (Zofran Inj) 4 mg Q6H PRN IVP 05/04/17 08:15 (Narcan Inj) 0.4 mg UNSCH PRN IV PUSH 05/04/17 08:15 (Kate-Colace) 1 tab BID PO 05/04/17 09:00 05/08/17 08:39 (Milk Of Magnesia Liq) 30 ml Q12H PRN PO 05/04/17 08:15 (Senokot) 17.2 mg Q12H PRN PO 05/04/17 08:15 (Dulcolax Supp) 10 mg DAILY PRN RECTAL 05/04/17 08:15 (Lactulose Liq) 30 ml DAILY PRN PO 05/04/17 08:15 (Morphine Inj) 2 mg Q3H PRN IV PUSH 05/04/17 08:15 (Ecotrin Ec) 81 mg DAILY PO 05/04/17 09:00 05/10/17 08:39 (Nitrostat Sl) 0.4 mg Q5M PRN SL 05/04/17 08:15 (D50w (Vial) Inj) 50 ml UNSCH PRN IV PUSH 05/04/17 08:15 (Glucagon Inj) 1 mg UNSCH PRN OTHER 05/04/17 08:15 (NovoLOG SUPPLEMENTAL SCALE) 1 ACHS SLIDING SCALE SQ 05/04/17 12:00 05/10/17 08:37 Pharmacy Profile Note 0 ml @ 0 mls/hr UNSCH OTHER 05/04/17 15:15 (Vasotec) 20 mg BID PO 05/04/17 21:00 05/10/17 08:38 (Zanaflex) 4 mg HS PO 05/04/17 21:00 05/09/17 21:53 (Lipitor) 40 mg DAILY PO 05/05/17 09:00 05/10/17 08:39 (Duoneb Neb) 1 ampule Q4HR NEB PRN NEB 05/05/17 09:00 05/06/17 00:18 (Ultram) 50 mg Q8H PRN PO 05/05/17 09:00 (Lopressor) 25 mg Q12HR PO 05/05/17 21:00 05/10/17 08:39 (Santyl Oint) 1 applic DAILY TOPICAL 05/07/17 09:00 05/10/17 08:39 (Levemir Inj) 5 units Q12HR SQ 05/07/17 09:00 05/10/17 08:38 (Duoneb Neb) 1 ampule Q6HR WHILE AWAKE NEB NEB 05/08/17 14:00 05/10/17 07:35 (Atropine Inj) 0.5 mg UNSCH PRN IV PUSH 05/09/17 10:30 Sodium Chloride 250 ml @ 500 mls/hr ONCE PRN IV 05/09/17 10:30 05/10/17 10:29 (Xylocaine 1% Inj (50 ml)) 10 ml UNSCH PRN INFIL 05/09/17 10:30 05/10/17 10:29 (fentaNYL INJ) 25 mcg Q30M PRN IV PUSH 05/09/17 10:30 (Lasix Inj) 40 mg BID@0900,1800 IV PUSH 05/09/17 18:00 05/10/17 08:38 Vancomycin HCl 1250 mg/Sodium Chloride 262.5 ml @ 250 mls/hr Q18H IV 05/10/17 00:00 05/09/17 23:51 Miscellaneous Information SPECIFIC LAB TO BE DRAWN:VANCOMYCIN TROUGH DATE TO... ONCE ONCE .XX 05/12/17 05:45 05/12/17 05:46 Vital Signs / I&O Vital Signs Date Time Temp Pulse Resp B/P (MAP) Pulse Ox O2 Delivery O2 Flow Rate FiO2 05/10/17 07:35 92 70 05/10/17 06:45 93 70 05/10/17 05:15 93 Partial Rebreather 12.00 05/10/17 04:34 97 50 05/10/17 03:00 95 Bi-Pap 05/10/17 03:00 98.3 67 18 126/75 (92) 95 05/10/17 03:00 67 05/10/17 00:37 95 50 05/09/17 23:00 98.5 76 18 125/72 (89) 94 05/09/17 23:00 74 05/09/17 23:00 94 Venturi Mask 50 05/09/17 20:54 95 Venturi Mask 6.00 50 05/09/17 19:00 91 Venturi Mask 50 05/09/17 19:00 98.3 78 22 131/74 (93) 91 05/09/17 19:00 78 05/09/17 17:30 98 Venturi Mask 50 05/09/17 17:30 84 05/09/17 16:50 97 50 05/09/17 16:00 78 05/09/17 15:37 98 Bi-Pap 05/09/17 15:37 98.1 70 20 116/67 (83) 98 05/09/17 15:00 71 05/09/17 14:00 70 05/09/17 13:38 96 BiPAP 80 05/09/17 13:38 96 80 05/09/17 13:14 97 40 05/09/17 13:12 95 Bi-Pap 05/09/17 13:00 79 24 135/55 (81) 98 05/09/17 13:00 80 05/09/17 12:40 93 Non-Rebreather 15.00 05/09/17 12:00 84 05/09/17 12:00 80 20 166/76 (106) 90 05/09/17 11:37 93 Nasal Cannula 4.00 05/09/17 11:37 97.4 88 22 142/57 (85) 93 05/09/17 11:00 85 05/09/17 11:00 80 156/67 (96) 05/09/17 10:45 85 139/57 (84) 05/09/17 10:30 87 133/58 (83) I/O 05/09/17 05/09/17 05/09/17 05/10/17 05/10/17 05/10/17 07:00 15:00 23:00 07:00 15:00 23:00 Intake Total 1310 ml 700 ml 1202.5 ml Output Total 1100 ml 1300 ml 1700 ml Balance 210 ml -600 ml -497.5 ml Intake Oral 960 ml 600 ml 840 ml IV Total 350 ml 100 ml 362.5 ml Output Urine Total 1100 ml 1300 ml 1700 ml # Bowel Movements 1 2 Physical Exam GENERAL: Well-developed well-nourished. In no acute distress. NECK: No carotid bruits. No JVD. CARDIOVASCULAR: Regular rate and rhythm. No murmur appreciated. RESPIRATORY: No accessory muscle use. Bibasilar crackles. Some expiratory wheezing. MUSCULOSKELETAL: Left lower extremity with venous stasis skin changes, left ankle ulcer, 1+ edema, nonpalpable pedal and popliteal pulses. Right lower extremity with 2+ lower extremity pulses and no edema. NEUROLOGICAL: Awake and alert. Normal speech. Laboratory Laboratory Tests Test 05/09/17 14:27 05/10/17 05:04 Blood Gas Puncture Site ART LINE Blood Gas Patient Temperature 98.6 Blood Gas HCO3 27 mmol/L Blood Gas Base Excess 3.1 mmol/L Blood Gas Oxygen Saturation 90 % Arterial Blood pH 7.43 Arterial Blood Partial Pressure CO2 42 mmHg Arterial Blood Partial Pressure O2 66 mmHg Arterial Blood Oxygen Content 15.6 Vol % Arterial Blood Carboxyhemoglobin 0.5 % Arterial Blood Methemoglobin 1.2 % Blood Gas Hemoglobin 12.3 G/DL Oxygen Delivery Device BiPAP 12IPAP/5EPAP Blood Gas Inspired Oxygen 60 % White Blood Count 13.3 TH/MM3 Red Blood Count 4.49 MIL/MM3 Hemoglobin 12.4 GM/DL Hematocrit 38.4 % Mean Corpuscular Volume 85.5 FL Mean Corpuscular Hemoglobin 27.5 PG Mean Corpuscular Hemoglobin Concent 32.2 % Red Cell Distribution Width 14.5 % Platelet Count 505 TH/MM3 Mean Platelet Volume 8.6 FL Blood Urea Nitrogen 24 MG/DL Creatinine 1.19 MG/DL Random Glucose 244 MG/DL Calcium Level 8.4 MG/DL Sodium Level 143 MEQ/L Potassium Level 4.0 MEQ/L Chloride Level 105 MEQ/L Carbon Dioxide Level 32.6 MEQ/L Anion Gap 5 MEQ/L Estimat Glomerular Filtration Rate 61 ML/MIN Imaging Last Impressions Lower Extremity Ultrasound 05/09/17 0000 Signed Impressions: Service Date/Time: April 17:40 - CONCLUSION: Normal examination. Theo Allen MD Chest X-Ray 05/09/17 0000 Signed Impressions: Service Date/Time: April 14:13 - CONCLUSION: 1. Cardiomegaly with pulmonary vascular congestion pattern. 2. Progression of patchy airspace disease throughout the right lung which may reflect atypical pulmonary edema pattern. 3. Stable left lower lung zone patchy airspace disease. Alexander Posada MD Carotid Artery Ultrasound 05/09/17 0000 Signed Impressions: Service Date/Time: April 18:07 - CONCLUSION: 1. Moderate calcified plaque around the carotid bifurcations bilaterally without evidence for hemodynamically significant stenosis. Theo Allen MD Ankle MRI 05/08/17 0000 Signed Impressions: Service Date/Time: Monday, May 08, 2017 09:48 - CONCLUSION: 1. Abnormal marrow edema within the lateral malleolus and subtle contrast enhancement. Findings are concerning for osteomyelitis. 2. Cellulitic changes in the soft tissues around the lateral aspect of the foot and ankle. Huseyin Muñoz MD Ankle X-Ray 05/04/17 0000 Signed Impressions: Service Date/Time: Thursday, May 04, 2017 15:27 - CONCLUSION: Mild degenerative type changes. Otherwise, unremarkable exam for patient's age. Lee Yao MD (Solomon Henderson) Assessment and Plan Assessment and Plan 71-year-old male with a past medical history of DM, HTN who presented for left lower extremity swelling, ulcer, and pain. He was found to have EKG changes in the ED. NSTEMI: Catheterization reveals coronary arteries with severe multivessel CAD. CT surgery consulted for CABG, requesting clearance from ID with osteomyelitis. Consider heparin with transition to Plavix or CABG. Acute systolic CHF: Echo with reduced systolic function, EF 35-40 %. Continue IV Lasix to 80 mg twice a day. Sodium restrictions. Strict I's and O's. Osteomyelitis LLE/poor circulation with PAD: ID and Podiatry on board, continue IV antibiotics. Performed LLE peripheral angiogram 05/10 with angioplasty left external iliac and arthrectomy and balloon angioplasty of left peroneal artery. (Solomon Henderson) Assessment and Plan multivessel CAD - CABG. CT surgery following LLE wound - IV antibiotics. s/p left external iliac ROPE MAKER (good common femoral artery pulse) and s/p atherectomy/ROPE MAKER left posterior tibial artery. anterior tibial artery occluded. Doppler PT and AT. No vascular surgical options given poor runoff with small vessels (all distal disease). Likely will need time and IV antiobiotics +/- hyperbaric therapy. monitor fluid status Likely will need SNF with antibiotics and come back for CABG once cleared. CM consult (Jonny Melchor MD) Solomon Henderson May 10, 2017 09:07 Jonny Melchor MD May 10, 2017 12:56
--- NOTE | 2017-05-10 09:29 | HHI.PR ---
Subjective Remarks Patient is currently on 6 L NC. I EVRIN RN. He was on Bipap this morning. He reports that his breathing is about the same. He denies chest pain. -1L on fluid balance Objective Vitals Vital Signs Date Time Temp Pulse Resp B/P (MAP) Pulse Ox O2 Delivery O2 Flow Rate FiO2 05/10/17 07:35 92 70 05/10/17 06:45 93 70 05/10/17 05:15 93 Partial Rebreather 12.00 05/10/17 04:34 97 50 05/10/17 03:00 95 Bi-Pap 05/10/17 03:00 98.3 67 18 126/75 (92) 95 05/10/17 03:00 67 05/10/17 00:37 95 50 05/09/17 23:00 98.5 76 18 125/72 (89) 94 05/09/17 23:00 74 05/09/17 23:00 94 Venturi Mask 50 05/09/17 20:54 95 Venturi Mask 6.00 50 05/09/17 19:00 91 Venturi Mask 50 05/09/17 19:00 98.3 78 22 131/74 (93) 91 05/09/17 19:00 78 05/09/17 17:30 98 Venturi Mask 50 05/09/17 17:30 84 05/09/17 16:50 97 50 05/09/17 16:00 78 05/09/17 15:37 98 Bi-Pap 05/09/17 15:37 98.1 70 20 116/67 (83) 98 05/09/17 15:00 71 05/09/17 14:00 70 05/09/17 13:38 96 BiPAP 80 05/09/17 13:38 96 80 05/09/17 13:14 97 40 05/09/17 13:12 95 Bi-Pap 05/09/17 13:00 79 24 135/55 (81) 98 05/09/17 13:00 80 05/09/17 12:40 93 Non-Rebreather 15.00 05/09/17 12:00 84 05/09/17 12:00 80 20 166/76 (106) 90 05/09/17 11:37 93 Nasal Cannula 4.00 05/09/17 11:37 97.4 88 22 142/57 (85) 93 05/09/17 11:00 85 05/09/17 11:00 80 156/67 (96) 05/09/17 10:45 85 139/57 (84) 05/09/17 10:30 87 133/58 (83) I/O 05/09/17 05/09/17 05/09/17 05/10/17 05/10/17 05/10/17 07:00 15:00 23:00 07:00 15:00 23:00 Intake Total 1310 ml 700 ml 1202.5 ml Output Total 1100 ml 1300 ml 1700 ml Balance 210 ml -600 ml -497.5 ml Intake Oral 960 ml 600 ml 840 ml IV Total 350 ml 100 ml 362.5 ml Output Urine Total 1100 ml 1300 ml 1700 ml # Bowel Movements 1 2 Result Diagram: 05/10/17 0504 05/10/17 0504 Objective Remarks GENERAL: Elderly male in no acute distress. CARDIOVASCULAR: Normal rate and regular rhythm without murmurs, gallops, or rubs. RESPIRATORY: Diminished breath sounds at the bases otherwise clear to auscultation bilaterally. GASTROINTESTINAL: Abdomen soft, non-tender, non-distended. Normal active bowel sounds MUSCULOSKELETAL: Left lateral ankle has a large eschar. Multiple wounds involving the right dorsal toes. Plantar surface is status post debridement by podiatry, dressing appear intact NEURO: Alert & Oriented x4 to person, place, time, situation. Moves all ext x4 PSYCH: Appropriate mood and affect. Procedures None A/P Assessment and Plan 71 Y/O male with multiple comorbid conditions including acute respiratory failure secondary to CHF and COPD. Patient had and NSTEMI, multivessel disease in need of CABG. He also presented with sepsis secondary to foot infection and osteomyelitis. Apparent PAD. Patient still critically ill requiring a lot of oxygen support. Continue current management. DW RN if any deterioration of respiratory status to let me know as he may need executive office manager service. Acute respiratory failure suspect due to pulmonary edema from acute systolic CHF , EF 30%. chest x-ray shows pulmonary edema more pronounced on the right lung field. S/P Lasix 100 mg IV push yesterday. - Off bipap this morning. Responding to diuresis. Repeat chest x-ray pending - Continue Lasix 40 mg IV BID -KCl 20 meq PO BID -cont BB and ACEi -follow BMP and urine output via tyson Sepsis due to Diabetic foot ulcer with infection and osteomyelitis, Left lower ext cellulitis, also has PAD - Patient met sepsis criteria with elevated white count of 18.5, tachycardia with heart rate of 94 and source of left leg cellulitis and open diabetic left ankle ulcer. - X ray of the left ankle is unremarkable. MRI shows abnormal marrow edema within the lateral malleolus concerning for osteomyelitis. - Suspect underlying PAD. - IV vancomycin and Zosyn. Consulted pharmacy to dose. will monitor the response. - blood cultures negative so far/ wound culture with MRSA and strep - consulted wound care nurse. - podiatry following. S/P bedside debridement - ID following. Per ID, no absolute contraindication for surgery given the benefit of surgery outweigh the risks - s/p left lower extremity angiogram with balloon angioplasty in the left external iliac artery, and angioplasty and atherectomy in the posterior tibial and posterior tibial peritoneal trunk by Dr. casarez. no stent placed due to ongoing infection and need for CABG. I discussed with Dr. casarez's PA, they will continue follow the patient for his cardiac issues and peripheral artery disease for now. NSTEMI - Cardiology following. Status post left heart catheterization today with Dr. casarez showing 80% stenosis in the distal LAD, 99% occlusion of the left circumflex, diffusely diseased right coronary artery CT surgery following for consideration of CABG - continue ASA and statin, metoprolol, enalapril 20 mg PO BID. - Metoprolol 25mg BID. 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 - Monitor blood pressure and adjust treatment accordingly. Diabetes Mellitus. - Hemoglobin A1c 7.3%. - cont levemir to 5 units subq bid, continue sliding scale insulin with Aspart. May need pre-meal coverage. COPD, 40 pack year tobacco history -Breathing treatment as needed. Hold off on steroid for now. he is moving air better - Supplemental oxygen to keep sats>90% DVT prophylaxis; will start on chemical prophylaxis after planned procedures. No SCDs due to the ankle wound. Lesvia Dumont MD May 10, 2017 09:28
--- NOTE | 2017-05-10 10:05 | RADRPT ---
EXAM DATE/TIME: 05/10/2017 09:01 [place] COMPARISON: CHEST SINGLE AP, May 09, 2017, 14:13. INDICATIONS : Difficulty breathing. Respiratory failure. MEDICAL HISTORY : Cardiac disorder. Hypercholesterol. Hyperlipidemia. Hypertension. COPD. Diabetic. SURGICAL HISTORY : CABG. Left hand surgery. ENCOUNTER: Subsequent ACUITY: 2 days PAIN SCORE: 4/10 LOCATION: Bilateral chest FINDINGS: Significantly improved patchy airspace disease throughout the right lung. The residual interstitial p rominence and bibasilar airspace disease. Cardiomediastinal contours are stable. Remainder of the exa m is unchanged. CONCLUSION: 1. Significant improved pulmonary vascular congestion pattern. 2. Residual bibasilar airspace disease. Alexander Posada MD on May 10, 2017 at 9:57 Board Certified Radiologist. This report was verified electronically.
--- NOTE | 2017-05-10 15:15 | PD.CAR.PN ---
CVT Progress Note Subjective/Hospital Course: 71/ male presented with complaint of worsening infection in his left ankle that he has had off and on for the last 3 weeks. He had a open wound on the outside aspect of the ankle. He has longstanding history of diabetes on insulin. He has also been complaining of some increased weakness and fatigue for the past 6 months. He said he had normally ambulated unassisted, was having more difficulty getting around due to the weakness and discomfort. Incidentally on admission he had EKG done which showed some ST elevation in lead II only, however, he did have some T-wave depression in the lateral leads, some poor R- wave progression, no prior EKG to compare. He then had a troponin elevated at 1.26. He was ruled in for non-STEMI. He was taken then to the parking lot laborer by Dr. Melchor this morning which showed the LAD approximately 20% stenosis, moderate sized diagonal branches, 40% proximal stenosis, the LAD beyond the takeoff of the diagonal was 90% stenosed, the second diagonal branch had some luminal irregularities, the LAD distal had 80% lesion, left circ had a 99% subtotal occlusion and the right coronary artery had heavily calcified subtotal occlusion , ejection fraction approximately 35%. S/p left external iliac LAP HAND TOOL (good common femoral artery pulse) and s/p atherectomy/LAP HAND TOOL left posterior tibial artery. anterior tibial artery occluded. Doppler PT and AT. No vascular surgical options given poor runoff with small vessels (all distal disease). . We were consulted to evaluate for coronary artery bypass grafting. PAST MEDICAL HISTORY: Hypertension, Uncontrolled diabetes mellitus, COPD with ongoing tobacco use , severe PAD , Excision of melanoma from the face, chronic wound on his left ankle for about 3 weeks. left ankle wound MRSA group A Beta strep / on IV antibiotics carotid OK no DVT await PFT MRI cleft ankle concern for osteomyelitis 05/10 pt transfer to CVICU yesterday evening resp failure, hypoxemia, placed on Bipap PO2 66 on 60% fio2 / pt now on 6 liters / 91% fi02 was given lasix , also on scheduled diuretic , denied any chest pain , followed by ID agree that pt will need time to recover and continued IV antibiotics/ wound care would continue to maximize medical therapy and re-eval timing for surgery next week may need SNF / PT and return for CABG s/p left external iliac LAP HAND TOOL (good common femoral artery pulse) and s/p atherectomy/LAP HAND TOOL left posterior tibial artery. anterior tibial artery occluded. Doppler PT and AT. No vascular surgical options given poor runoff with small vessels (all distal disease). Likely will need time and IV antiobiotics +/- hyperbaric therapy. Objective: GENERAL: A&0 x 3 SKIN: Warm and dry. HEAD: Normocephalic. EYES: No scleral icterus. No injection or drainage. NECK: Supple, trachea midline. No JVD or lymphadenopathy. CARDIOVASCULAR: Regular rate and rhythm without murmurs, gallops, or rubs. RESPIRATORY: coarse bilateral breath sounds , few crackles in bases Breath sounds equal bilaterally. No accessory muscle use. GASTROINTESTINAL: Abdomen soft, non-tender, nondistended. MUSCULOSKELETAL: No cyanosis, or edema. BACK: Nontender without obvious deformity. No CVA tenderness. ext: No joint tenderness or effusion noted. No calf tenderness. No mottling or clubbing. Both feet w/o palpable pulses/ doppler only L ankle with erythema, mild to moderate edema and 3x 3 cm shallow ulceration Vital Signs Date Time Temp Pulse Resp B/P (MAP) Pulse Ox O2 Delivery O2 Flow Rate FiO2 05/10/17 11:00 98.4 73 22 136/72 (93) 96 05/10/17 11:00 91 Nasal Cannula 6.00 05/10/17 11:00 75 05/10/17 09:00 90 Nasal Cannula 6.00 05/10/17 07:35 92 70 05/10/17 07:00 89 Bi-Pap 70 05/10/17 07:00 73 05/10/17 07:00 98.4 98 21 142/85 (104) 87 05/10/17 06:45 93 70 05/10/17 05:15 93 Partial Rebreather 12.00 05/10/17 04:34 97 50 05/10/17 03:00 95 Bi-Pap 05/10/17 03:00 98.3 67 18 126/75 (92) 95 05/10/17 03:00 67 05/10/17 00:37 95 50 05/09/17 23:00 98.5 76 18 125/72 (89) 94 05/09/17 23:00 74 05/09/17 23:00 94 Venturi Mask 50 05/09/17 20:54 95 Venturi Mask 6.00 50 05/09/17 19:00 91 Venturi Mask 50 05/09/17 19:00 98.3 78 22 131/74 (93) 91 05/09/17 19:00 78 05/09/17 17:30 98 Venturi Mask 50 05/09/17 17:30 84 05/09/17 16:50 97 50 05/09/17 16:00 78 05/09/17 15:37 98 Bi-Pap 05/09/17 15:37 98.1 70 20 116/67 (83) 98 05/09/17 15:00 71 Labs: Laboratory Tests Test 05/10/17 05:04 05/10/17 11:33 White Blood Count 13.3 TH/MM3 (4.0-11.0) Red Blood Count 4.49 MIL/MM3 (4.50-5.90) Hemoglobin 12.4 GM/DL (13.0-17.0) Hematocrit 38.4 % (39.0-51.0) Mean Corpuscular Volume 85.5 FL (80.0-100.0) Mean Corpuscular Hemoglobin 27.5 PG (27.0-34.0) Mean Corpuscular Hemoglobin Concent 32.2 % (32.0-36.0) Red Cell Distribution Width 14.5 % (11.6-17.2) Platelet Count 505 TH/MM3 (150-450) Mean Platelet Volume 8.6 FL (7.0-11.0) Blood Urea Nitrogen 24 MG/DL (7-18) Creatinine 1.19 MG/DL (0.60-1.30) Random Glucose 244 MG/DL (74-106) Calcium Level 8.4 MG/DL (8.5-10.1) Sodium Level 143 MEQ/L (136-145) Potassium Level 4.0 MEQ/L (3.5-5.1) Chloride Level 105 MEQ/L (98-107) Carbon Dioxide Level 32.6 MEQ/L (21.0-32.0) Anion Gap 5 MEQ/L (5-15) Estimat Glomerular Filtration Rate 61 ML/MIN (>89) B-Type Natriuretic Peptide 2054 PG/ML (0-100) Result Diagram: 05/10/17 0504 05/10/17 0504 Cardiovascular: NSR (1) Pressure ulcer Plan: wound care , ID and podiatry following (2) Acute myocardial infarction Plan: on ASA , statin , BB re-eval timing for surgery next week (3) Venous stasis ulcer (4) COPD (chronic obstructive pulmonary disease) Plan: nebs, pulm toileting (5) Coronary artery disease (6) CHF (congestive heart failure) Plan: on diuretics, EF 35% Problem Qualifiers (1) Pressure ulcer: (2) Acute myocardial infarction: Qualified Codes: I21.3 - ST elevation (STEMI) myocardial infarction of unspecified site (3) Venous stasis ulcer: Qualified Codes: I83.023 - Varicose veins of left lower extremity with ulcer of ankle; L97.321 - Non-pressure chronic ulcer of left ankle limited to breakdown of skin Teresa Peterson May 10, 2017 15:15
[2017-05-10 15:58] LABS: BLOOD GAS BASE EXCESS 6.4 mmol/L (-2-2); BLOOD GAS CARBOXYHEMOGLOBIN 0.6 % (0-4); BLOOD GAS HCO3 30 mmol/L (22-26); BLOOD GAS METHEMOGLOBIN 1.1 % (0-2); BLOOD GAS O2 HGB SATURATION 94 % (90-100); BLOOD GAS OXYGEN CONTENT 17.6 Vol % (12.0-20.0); BLOOD GAS PCO2 41 mmHg (38-42); BLOOD GAS PO2 78 mmHg (61-120); BLOOD GAS TOTAL HGB 13.3 G/DL (12.0-16.0); CRITICAL VALUE NO; OXYGEN DEVICE NASAL CANNULA; TEMP CORR TO 98.6
[2017-05-10 15:59] LABS: DRAW SITE RT RADIAL; LITER FLOW 6 L/M; NUMBER OF ARTERIAL PUNCTURES 1; STAT NO; ULNAR PULSE PRESENT
--- NOTE | 2017-05-10 16:27 | HHI.PR ---
Subjective Remarks Patient seen bedside this a.m. states pain in his ankle is improving. There is no dressing to ankle and nurse bedside states there has not been dressing applied at all. patient reports pain to right sub met 5. Denies nausea vomiting fevers and chills. Objective Vital Signs Date Time Temp Pulse Resp B/P (MAP) Pulse Ox O2 Delivery O2 Flow Rate FiO2 05/10/17 15:00 95 Nasal Cannula 6.00 05/10/17 15:00 70 05/10/17 15:00 98.4 71 23 126/74 (91) 95 05/10/17 11:00 98.4 73 22 136/72 (93) 96 05/10/17 11:00 91 Nasal Cannula 6.00 05/10/17 11:00 75 05/10/17 09:00 90 Nasal Cannula 6.00 05/10/17 07:35 92 70 05/10/17 07:00 89 Bi-Pap 70 05/10/17 07:00 73 05/10/17 07:00 98.4 98 21 142/85 (104) 87 05/10/17 06:45 93 70 05/10/17 05:15 93 Partial Rebreather 12.00 05/10/17 04:34 97 50 05/10/17 03:00 95 Bi-Pap 05/10/17 03:00 98.3 67 18 126/75 (92) 95 05/10/17 03:00 67 05/10/17 00:37 95 50 05/09/17 23:00 98.5 76 18 125/72 (89) 94 05/09/17 23:00 74 05/09/17 23:00 94 Venturi Mask 50 05/09/17 20:54 95 Venturi Mask 6.00 50 05/09/17 19:00 91 Venturi Mask 50 05/09/17 19:00 98.3 78 22 131/74 (93) 91 05/09/17 19:00 78 05/09/17 17:30 98 Venturi Mask 50 05/09/17 17:30 84 05/09/17 16:50 97 50 I/O 05/09/17 05/09/17 05/09/17 05/10/17 05/10/17 05/10/17 07:00 15:00 23:00 07:00 15:00 23:00 Intake Total 1310 ml 700 ml 1202.5 ml Output Total 1100 ml 1300 ml 1700 ml Balance 210 ml -600 ml -497.5 ml Intake Oral 960 ml 600 ml 840 ml IV Total 350 ml 100 ml 362.5 ml Output Urine Total 1100 ml 1300 ml 1700 ml # Bowel Movements 1 2 Result Diagram: 05/10/17 0504 05/10/17 0504 Imaging Last 72 hours Impressions Chest X-Ray 05/10/17 0000 Signed Impressions: Service Date/Time: Wednesday, May 10, 2017 09:01 - CONCLUSION: 1. Significant improved pulmonary vascular congestion pattern. 2. Residual bibasilar airspace disease. Alexander Posada MD Lower Extremity Ultrasound 05/09/17 0000 Signed Impressions: Service Date/Time: April 17:40 - CONCLUSION: Normal examination. Theo Allen MD Lower Extremity Ultrasound 05/09/17 0000 Signed Impressions: Service Date/Time: April 17:48 - CONCLUSION: 1. Venous mapping measurements as above. Theo Allen MD Chest X-Ray 05/09/17 0000 Signed Impressions: Service Date/Time: April 14:13 - CONCLUSION: 1. Cardiomegaly with pulmonary vascular congestion pattern. 2. Progression of patchy airspace disease throughout the right lung which may reflect atypical pulmonary edema pattern. 3. Stable left lower lung zone patchy airspace disease. Alexander Posada MD Carotid Artery Ultrasound 05/09/17 0000 Signed Impressions: Service Date/Time: April 18:07 - CONCLUSION: 1. Moderate calcified plaque around the carotid bifurcations bilaterally without evidence for hemodynamically significant stenosis. Theo Allen MD Ankle MRI 05/08/17 0000 Signed Impressions: Service Date/Time: Monday, May 08, 2017 09:48 - CONCLUSION: 1. Abnormal marrow edema within the lateral malleolus and subtle contrast enhancement. Findings are concerning for osteomyelitis. 2. Cellulitic changes in the soft tissues around the lateral aspect of the foot and ankle. Huseyin Muñoz MD Procedures Bedside full-thickness excisional debridement of right sub met 5 ulcer to subcutaneous tissue with 10 blade Other Results Laboratory Tests Test 05/08/17 22:35 05/09/17 04:02 05/09/17 14:27 05/10/17 05:04 Vancomycin Level Trough 26.6 MCG/ML White Blood Count 13.6 TH/MM3 13.3 TH/MM3 Red Blood Count 4.49 MIL/MM3 4.49 MIL/MM3 Hemoglobin 12.8 GM/DL 12.4 GM/DL Hematocrit 37.8 % 38.4 % Mean Corpuscular Volume 84.3 FL 85.5 FL Mean Corpuscular Hemoglobin 28.4 PG 27.5 PG Mean Corpuscular Hemoglobin Concent 33.7 % 32.2 % Red Cell Distribution Width 14.2 % 14.5 % Platelet Count 509 TH/MM3 505 TH/MM3 Mean Platelet Volume 8.5 FL 8.6 FL Neutrophils (%) (Auto) 83.6 % Lymphocytes (%) (Auto) 7.7 % Monocytes (%) (Auto) 7.0 % Eosinophils (%) (Auto) 1.0 % Basophils (%) (Auto) 0.7 % Neutrophils # (Auto) 11.4 TH/MM3 Lymphocytes # (Auto) 1.1 TH/MM3 Monocytes # (Auto) 1.0 TH/MM3 Eosinophils # (Auto) 0.1 TH/MM3 Basophils # (Auto) 0.1 TH/MM3 CBC Comment DIFF FINAL Differential Comment Blood Urea Nitrogen 24 MG/DL 24 MG/DL Creatinine 1.03 MG/DL 1.19 MG/DL Random Glucose 120 MG/DL 244 MG/DL Calcium Level 8.7 MG/DL 8.4 MG/DL Sodium Level 143 MEQ/L 143 MEQ/L Potassium Level 3.5 MEQ/L 4.0 MEQ/L Chloride Level 105 MEQ/L 105 MEQ/L Carbon Dioxide Level 33.9 MEQ/L 32.6 MEQ/L Anion Gap 4 MEQ/L 5 MEQ/L Estimat Glomerular Filtration Rate 72 ML/MIN 61 ML/MIN Blood Gas Puncture Site ART LINE Blood Gas Patient Temperature 98.6 Blood Gas HCO3 27 mmol/L Blood Gas Base Excess 3.1 mmol/L Blood Gas Oxygen Saturation 90 % Arterial Blood pH 7.43 Arterial Blood Partial Pressure CO2 42 mmHg Arterial Blood Partial Pressure O2 66 mmHg Arterial Blood Oxygen Content 15.6 Vol % Arterial Blood Carboxyhemoglobin 0.5 % Arterial Blood Methemoglobin 1.2 % Blood Gas Hemoglobin 12.3 G/DL Oxygen Delivery Device BiPAP 12IPAP/5EPAP Blood Gas Inspired Oxygen 60 % Test 12/15/17 11:33 05/10/17 15:45 B-Type Natriuretic Peptide 2054 PG/ML Blood Gas Puncture Site RT RADIAL Blood Gas Patient Temperature 98.6 Blood Gas HCO3 30 mmol/L Blood Gas Base Excess 6.4 mmol/L Blood Gas Oxygen Saturation 94 % Arterial Blood pH 7.48 Arterial Blood Partial Pressure CO2 41 mmHg Arterial Blood Partial Pressure O2 78 mmHg Arterial Blood Oxygen Content 17.6 Vol % Arterial Blood Carboxyhemoglobin 0.6 % Arterial Blood Methemoglobin 1.1 % Blood Gas Hemoglobin 13.3 G/DL Oxygen Delivery Device NASAL CANNULA Blood Gas Liter Flow 6 L/M Objective Remarks Lower Extremity Physical Exam Vasc: Dp/PT non palpable 2/2 edema b/l. Pitting edema +2 noted to left ankle. 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 Neuro: Gross sensation intact b/l. No hyperalgesia noted b/l. Derm: Eschar noted to left lateral ankle measuring 3.0cm x 3.0cm with periwound erythema. No drainage upon compression. Erythema to left lateral and medial ankle with no ascending into proximal tibia, no streaking or lymphangitis noted - no improvement noted from initial consultation. Right foot digital PIPJ ulcers to digits 2,3,4 with fibro granular base and hyperkeratotic skin edges. Left 5th lateral met head callus/lesion with discoloration noted. MSK: Left foot pain on ROM. Pain on palpation to left ankle. No crepitus/ fluctuance noted to left ankle. Right foot hammertoes noted 2-5. Tailors bunion noted to right foot. Bilateral increase to medial eminence. Medications and IVs Current Medications Medications (Trade) Dose Ordered Sig/Tatyana Route Start Time Stop Time Status Last Admin (NS Flush) 2 ml UNSCH PRN IV FLUSH 05/04/17 08:15 05/05/17 17:26 (NS Flush) 2 ml BID IV FLUSH 05/04/17 09:00 05/10/17 08:37 (Tylenol) 650 mg Q4H PRN PO 05/04/17 08:15 05/05/17 03:15 (Zofran Inj) 4 mg Q6H PRN IVP 05/04/17 08:15 (Narcan Inj) 0.4 mg UNSCH PRN IV PUSH 05/04/17 08:15 (Kate-Colace) 1 tab BID PO 05/04/17 09:00 05/08/17 08:39 (Milk Of Magnesia Liq) 30 ml Q12H PRN PO 05/04/17 08:15 (Senokot) 17.2 mg Q12H PRN PO 05/04/17 08:15 (Dulcolax Supp) 10 mg DAILY PRN RECTAL 05/04/17 08:15 (Lactulose Liq) 30 ml DAILY PRN PO 05/04/17 08:15 (Morphine Inj) 2 mg Q3H PRN IV PUSH 05/04/17 08:15 (Ecotrin Ec) 81 mg DAILY PO 05/04/17 09:00 05/10/17 08:39 (Nitrostat Sl) 0.4 mg Q5M PRN SL 05/04/17 08:15 (D50w (Vial) Inj) 50 ml UNSCH PRN IV PUSH 05/04/17 08:15 (Glucagon Inj) 1 mg UNSCH PRN OTHER 05/04/17 08:15 (NovoLOG SUPPLEMENTAL SCALE) 1 ACHS SLIDING SCALE SQ 05/04/17 12:00 05/10/17 12:52 Pharmacy Profile Note 0 ml @ 0 mls/hr UNSCH OTHER 05/04/17 15:15 (Vasotec) 20 mg BID PO 05/04/17 21:00 05/10/17 08:38 (Zanaflex) 4 mg HS PO 05/04/17 21:00 05/09/17 21:53 (Lipitor) 40 mg DAILY PO 05/05/17 09:00 05/10/17 08:39 (Duoneb Neb) 1 ampule Q4HR NEB PRN NEB 05/05/17 09:00 05/06/17 00:18 (Ultram) 50 mg Q8H PRN PO 05/05/17 09:00 (Lopressor) 25 mg Q12HR PO 05/05/17 21:00 05/10/17 08:39 (Santyl Oint) 1 applic DAILY TOPICAL 05/07/17 09:00 05/10/17 08:39 (Levemir Inj) 5 units Q12HR SQ 05/07/17 09:00 05/10/17 08:38 (Duoneb Neb) 1 ampule Q6HR WHILE AWAKE NEB NEB 05/08/17 14:00 05/10/17 13:14 (Atropine Inj) 0.5 mg UNSCH PRN IV PUSH 05/09/17 10:30 (fentaNYL INJ) 25 mcg Q30M PRN IV PUSH 05/09/17 10:30 (Lasix Inj) 40 mg BID@0900,1800 IV PUSH 05/09/17 18:00 05/10/17 08:38 Vancomycin HCl 1250 mg/Sodium Chloride 262.5 ml @ 250 mls/hr Q18H IV 05/10/17 00:00 05/09/17 23:51 Miscellaneous Information SPECIFIC LAB TO BE DRAWN:VANCOMYCIN TROUGH DATE TO... ONCE ONCE .XX 05/12/17 05:45 05/12/17 05:46 Assessment and Plan Problem List: (1) Pressure ulcer ICD Codes: L89.90 - Pressure ulcer of unspecified site, unspecified stage Status: Acute Assessment and Plan 71 year old male with left lateral ankle eschar/ulcer and associated ankle cellulitis; Right dorsal PIPJ ulcers and left 5th lateral met head lesion. Patient evaluated and examined; discussed course of treatment with patient Full thickness excisional debridement of left sub met 5 ulcer with a 10 blade Consent was obtained at bedside and time-out was performed with nursing bedside MRI left ankle no concern for septic arthritis however fibula with signal intensity changes suggestive of osteomyelitis Vascular intervention has been performed Would appreciate ID recommendations as to IV antibiotics for fibular osteomyelitis Patient be evaluated for surgical intervention for coronary arteries if Infectious Disease feels that IV antibiotics insufficient for fibular osteomyelitis will consider surgical intervention however because of patient's compromised vascular status, smoking history there would be concern for appropriate healing and further risk of limb loss Please feel free to call and discuss Santyl to dorsal PIPJ ulcers, right sub met 5 ulcer, and left lateral ankle ulcer Orders placed for wound care Problem Qualifiers (1) Pressure ulcer: Alba Valdez DPM May 10, 2017 16:27
[2017-05-10] MEDS: VANCOMYCIN INJ 1,250 MG in SODIUM CHLOR 0.9% 250 ML INJ 250 ML IV SCH (17:46)
[2017-05-11] VITALS (11 sets, daily range): BP systolic 119–140; BP diastolic 64–82; PULSE 62–98; RESP 18–20; TEMP 97.6–98.5; O2SAT 92–99
[2017-05-11 06:29] LABS: HEMATOCRIT 36.9 % (39.0-51.0); MEAN CELL VOLUME 85.1 FL (80.0-100.0); MEAN CORPUSCULAR HEMOGLOBIN 27.5 PG (27.0-34.0); MEAN CORPUSCULAR HGB CONC 32.4 % (32.0-36.0); PLATELET COUNT 478 TH/MM3 (150-450); RED BLOOD COUNT 4.34 MIL/MM3 (4.50-5.90); RED CELL DISTRIBUTION WIDTH 14.3 % (11.6-17.2); REVIEW FLAG FINAL; WHITE BLOOD COUNT 12.4 TH/MM3 (4.0-11.0)
[2017-05-11 06:59] LABS: BICARBONATE 32.9 MEQ/L (21.0-32.0); POTASSIUM 3.6 MEQ/L (3.5-5.1)
[2017-05-11] MEDS: RESP: ALBUTEROL 2.5 MG/IPRATROPIUM 0.5 MG NEB (SCH) NEB ×3 (07:57→20:51)
[2017-05-11] MEDS ORDERED: FUROSEMIDE 20 MG/2 ML VIAL IV PUSH ONE (08:30)
[2017-05-11] MEDS: INSULIN ASPART SUPPLEMENTAL SCALE SQ SCH ×4 (08:34→20:45)
--- NOTE | 2017-05-11 08:40 | HHI.PR ---
Subjective Remarks Some mild confusion. Required bipap intermittently last night. Still on 5-6 L NC. 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 No focal neuro deficits. Objective Vitals Vital Signs Date Time Temp Pulse Resp B/P (MAP) Pulse Ox O2 Delivery O2 Flow Rate FiO2 05/11/17 07:55 92 Nasal Cannula 5.00 05/11/17 07:00 63 05/11/17 07:00 98.0 63 20 134/77 (96) 97 05/11/17 07:00 97 Bi-Pap 60 05/11/17 04:02 98 60 05/11/17 03:00 97.9 85 18 122/69 (86) 99 05/11/17 03:00 99 Bi-Pap 62 05/11/17 03:00 62 05/10/17 23:50 94 70 05/10/17 23:00 98.2 85 18 142/78 (99) 94 05/10/17 23:00 94 Bi-Pap 70 05/10/17 23:00 85 05/10/17 19:12 94 Nasal Cannula 5.00 05/10/17 19:00 76 05/10/17 19:00 98.5 76 22 138/73 (94) 94 05/10/17 19:00 94 Nasal Cannula 6.00 05/10/17 15:00 95 Nasal Cannula 6.00 05/10/17 15:00 70 05/10/17 15:00 98.4 71 23 126/74 (91) 95 05/10/17 11:00 98.4 73 22 136/72 (93) 96 05/10/17 11:00 91 Nasal Cannula 6.00 05/10/17 11:00 75 05/10/17 09:00 90 Nasal Cannula 6.00 I/O 05/10/17 05/10/17 05/10/17 05/11/17 05/11/17 05/11/17 06:59 14:59 22:59 06:59 14:59 22:59 Intake Total 1202.5 ml 1750 ml 630 ml Output Total 1700 ml 600 ml 900 ml Balance -497.5 ml 1150 ml -270 ml Intake Oral 840 ml 1500 ml 630 ml IV Total 362.5 ml 250 ml Output Urine Total 1700 ml 600 ml 900 ml # Bowel Movements 2 1 0 Result Diagram: 05/11/1751305/11/17513 Objective Remarks GENERAL: Elderly male in no acute distress. CARDIOVASCULAR: Normal rate and regular rhythm without murmurs, gallops, or rubs. RESPIRATORY: Diminished breath sounds at the bases otherwise clear to auscultation bilaterally. GASTROINTESTINAL: Abdomen soft, non-tender, non-distended. Normal active bowel sounds MUSCULOSKELETAL: Left lateral ankle has a large eschar. Multiple wounds involving the right dorsal toes. Plantar surface is status post debridement by podiatry, dressing appear intact NEURO: Alert & Oriented x4 to person, place, time, situation. Moves all ext x4 PSYCH: Appropriate mood and affect. Procedures None A/P Assessment and Plan 71 Y/O male with multiple comorbid conditions including acute respiratory failure secondary to CHF and COPD. Patient had and NSTEMI, multivessel disease in need of CABG. He also presented with sepsis secondary to foot infection and osteomyelitis. Apparent PAD. Patient still critically ill requiring a lot of oxygen support. CT surgery recommends continuing medical management and rehab prior to CABG. Podiatry awaiting recs from ID on whether or not he can be treated with IV antibiotics for osteomyelitis for now as he is a high surgical risk given the need for CABG. If he can be treated with antibiotics, ultimately he may go to rehab, later on have CABG, then podiatry intervention if needed. Acute respiratory failure suspect due to pulmonary edema from acute systolic CHF , EF 30%. chest x-ray shows pulmonary edema more pronounced on the right lung field. Responding to Lasix. - On and off bipap. Still high oxygen requirement. Responding to diuresis. - Continue Lasix 40 mg IV BID. Give additional 20 mg this morning and restrict fluid. -KCl 20 meq PO BID -cont BB and ACEi -follow BMP and urine output via tyson Sepsis due to Diabetic foot ulcer with infection and osteomyelitis, Left lower ext cellulitis, also has PAD - Patient met sepsis criteria with elevated white count of 18.5, tachycardia with heart rate of 94 and source of left leg cellulitis and open diabetic left ankle ulcer. - X ray of the left ankle is unremarkable. MRI shows abnormal marrow edema within the lateral malleolus concerning for osteomyelitis. - Suspect underlying PAD. - IV vancomycin and Zosyn. Consulted pharmacy to dose. will monitor the response. - blood cultures negative so far/ wound culture with MRSA and strep - consulted wound care nurse. - podiatry following. S/P bedside debridement - ID following. Per ID, no absolute contraindication for surgery given the benefit of surgery outweigh the risks - s/p left lower extremity angiogram with balloon angioplasty in the left external iliac artery, and angioplasty and atherectomy in the posterior tibial and posterior tibial peritoneal trunk by Dr. casarez. no stent placed due to ongoing infection and need for CABG. I discussed with Dr. casarez's PA, they will continue follow the patient for his cardiac issues and peripheral artery disease for now. Encephalopathy vs Delirium: - Likely delirium secondary to medical conditions above. Mild currently. Continue to reorientation and monitor closely. Check ammonia. NSTEMI - Cardiology following. Status post left heart catheterization today with Dr. casarez showing 80% stenosis in the distal LAD, 99% occlusion of the left circumflex, diffusely diseased right coronary artery CT surgery following - continue ASA and statin, metoprolol, enalapril 20 mg PO BID. - Metoprolol 25mg BID. - echo with EF 35% - telemetry - Previously DW CT surgery BOBBIN DOFFER. Continue maximal medical management. CT surgery to reevaluate for timing of surgery next week. Hypertension - Continue Norvasc, enalapril and metoprolol - Hold home dose of hydrochlorothiazide 25 mg daily for now. - Monitor blood pressure and adjust treatment accordingly. Diabetes Mellitus. - Hemoglobin A1c 7.3%. - cont levemir to 5 units subq bid, continue sliding scale insulin with Aspart. COPD, 40 pack year tobacco history -Breathing treatment as needed. Hold off on steroid for now. he is moving air, suspect hypoxemia secondary to cardiac cause - Supplemental oxygen to keep sats>90% heparin for DVT prophylaxis Lesvia Dumont MD May 11, 2017 08:39
[2017-05-11] MEDS: INSULIN DETEMIR 100 UNITS/ML VIAL SQ SCH ×2 (09:00→20:36)
[2017-05-11] MEDS: ENALAPRIL MALEATE 10 MG TAB PO SCH ×2 (09:01→20:37)
[2017-05-11] MEDS: ASPIRIN EC 81 MG TABEC PO SCH (09:01)
[2017-05-11] MEDS: ATORVASTATIN 40 MG TAB PO SCH (09:01)
[2017-05-11] MEDS: METOPROLOL TARTRATE 25 MG TAB PO SCH ×2 (09:01→20:37)
[2017-05-11] MEDS: COLLAGENASE OINT 30 GM TUBE TOPICAL SCH (09:02)
[2017-05-11] MEDS: FUROSEMIDE 100 MG/10 ML VIAL IV PUSH SCH ×2 (09:03→17:13)
[2017-05-11] MEDS: SODIUM CHLORIDE 0.9% FLUSH 10 ML FLUSH IV FLUSH SCH ×2 (09:03→20:37)
--- NOTE | 2017-05-11 09:08 | PD.CARD.PN ---
Subjective Subjective Remarks resting comfortably. on bipap and breathing well, no chest pain (Roxie Villagomez) Objective Medications Current Medications Medications (Trade) Dose Ordered Sig/Tatyana Route Start Time Stop Time Status Last Admin (NS Flush) 2 ml UNSCH PRN IV FLUSH 05/04/17 08:15 05/05/17 17:26 (NS Flush) 2 ml BID IV FLUSH 05/04/17 09:00 05/10/17 21:00 (Tylenol) 650 mg Q4H PRN PO 05/04/17 08:15 05/05/17 03:15 (Zofran Inj) 4 mg Q6H PRN IVP 05/04/17 08:15 (Narcan Inj) 0.4 mg UNSCH PRN IV PUSH 05/04/17 08:15 (Milk Of Magnesia Liq) 30 ml Q12H PRN PO 05/04/17 08:15 (Senokot) 17.2 mg Q12H PRN PO 05/04/17 08:15 (Dulcolax Supp) 10 mg DAILY PRN RECTAL 05/04/17 08:15 (Lactulose Liq) 30 ml DAILY PRN PO 05/04/17 08:15 (Morphine Inj) 2 mg Q3H PRN IV PUSH 05/04/17 08:15 (Ecotrin Ec) 81 mg DAILY PO 05/04/17 09:00 05/10/17 08:39 (Nitrostat Sl) 0.4 mg Q5M PRN SL 05/04/17 08:15 (D50w (Vial) Inj) 50 ml UNSCH PRN IV PUSH 05/04/17 08:15 (Glucagon Inj) 1 mg UNSCH PRN OTHER 05/04/17 08:15 (NovoLOG SUPPLEMENTAL SCALE) 1 ACHS SLIDING SCALE SQ 05/04/17 12:00 05/11/17 08:34 Pharmacy Profile Note 0 ml @ 0 mls/hr UNSCH OTHER 05/04/17 15:15 (Vasotec) 20 mg BID PO 05/04/17 21:00 05/10/17 22:11 (Zanaflex) 4 mg HS PO 05/04/17 21:00 05/10/17 22:11 (Lipitor) 40 mg DAILY PO 05/05/17 09:00 05/10/17 08:39 (Duoneb Neb) 1 ampule Q4HR NEB PRN NEB 05/05/17 09:00 05/06/17 00:18 (Ultram) 50 mg Q8H PRN PO 05/05/17 09:00 (Lopressor) 25 mg Q12HR PO 05/05/17 21:00 05/10/17 22:11 (Santyl Oint) 1 applic DAILY TOPICAL 05/07/17 09:00 05/10/17 08:39 (Duoneb Neb) 1 ampule Q6HR WHILE AWAKE NEB NEB 05/08/17 14:00 05/11/17 07:57 (Atropine Inj) 0.5 mg UNSCH PRN IV PUSH 05/09/17 10:30 (fentaNYL INJ) 25 mcg Q30M PRN IV PUSH 05/09/17 10:30 (Lasix Inj) 40 mg BID@0900,1800 IV PUSH 05/09/17 18:00 05/10/17 17:46 Vancomycin HCl 1250 mg/Sodium Chloride 262.5 ml @ 250 mls/hr Q18H IV 05/10/17 00:00 05/10/17 17:46 Miscellaneous Information SPECIFIC LAB TO BE DRAWN:VANCOMYCIN TROUGH DATE TO... ONCE ONCE .XX 05/12/17 05:45 05/12/17 05:46 (Levemir Inj) 8 units Q12HR SQ 05/11/17 09:00 (Heparin Inj) 5,000 units Q8H SQ 05/11/17 09:00 UNV Vital Signs / I&O Vital Signs Date Time Temp Pulse Resp B/P (MAP) Pulse Ox O2 Delivery O2 Flow Rate FiO2 05/11/17 07:55 92 Nasal Cannula 5.00 05/11/17 07:00 63 05/11/17 07:00 98.0 63 20 134/77 (96) 97 05/11/17 07:00 97 Bi-Pap 60 05/11/17 04:02 98 60 05/11/17 03:00 97.9 85 18 122/69 (86) 99 05/11/17 03:00 99 Bi-Pap 62 05/11/17 03:00 62 05/10/17 23:50 94 70 05/10/17 23:00 98.2 85 18 142/78 (99) 94 05/10/17 23:00 94 Bi-Pap 70 05/10/17 23:00 85 05/10/17 19:12 94 Nasal Cannula 5.00 05/10/17 19:00 76 05/10/17 19:00 98.5 76 22 138/73 (94) 94 05/10/17 19:00 94 Nasal Cannula 6.00 05/10/17 15:00 95 Nasal Cannula 6.00 05/10/17 15:00 70 05/10/17 15:00 98.4 71 23 126/74 (91) 95 05/10/17 11:00 98.4 73 22 136/72 (93) 96 05/10/17 11:00 91 Nasal Cannula 6.00 05/10/17 11:00 75 05/10/17 09:00 90 Nasal Cannula 6.00 I/O 05/10/17 05/10/17 05/10/17 05/11/17 05/11/17 05/11/17 07:00 15:00 23:00 07:00 15:00 23:00 Intake Total 1202.5 ml 1750 ml 630 ml Output Total 1700 ml 600 ml 900 ml Balance -497.5 ml 1150 ml -270 ml Intake Oral 840 ml 1500 ml 630 ml IV Total 362.5 ml 250 ml Output Urine Total 1700 ml 600 ml 900 ml # Bowel Movements 2 1 0 Physical Exam GENERAL: SKIN: Warm and dry. HEAD: Atraumatic. Normocephalic. EYES: Pupils equal and round. ENT: No nasal bleeding or discharge.t. NECK: Trachea midline. No JVD. CARDIOVASCULAR: Regular rate and rhythm. no murmurs RESPIRATORY: No accessory muscle use. Clear to auscultation. Breath sounds equal bilaterally. GASTROINTESTINAL: Abdomen soft, non-tender, nondistended. Hepatic and splenic margins not palpable. MUSCULOSKELETAL: Extremities without clubbing, cyanosis, or edema. LLE wound well bandaged NEUROLOGICAL: Awake and alert. No obvious cranial nerve deficits. Normal speech. PSYCHIATRIC: Appropriate mood and affect; insight and judgment normal. Laboratory Laboratory Tests Test 05/10/17 11:33 05/10/17 15:45 05/11/17 05:14 B-Type Natriuretic Peptide 2054 PG/ML Blood Gas Puncture Site RT RADIAL Blood Gas Patient Temperature 98.6 Blood Gas HCO3 30 mmol/L Blood Gas Base Excess 6.4 mmol/L Blood Gas Oxygen Saturation 94 % Arterial Blood pH 7.48 Arterial Blood Partial Pressure CO2 41 mmHg Arterial Blood Partial Pressure O2 78 mmHg Arterial Blood Oxygen Content 17.6 Vol % Arterial Blood Carboxyhemoglobin 0.6 % Arterial Blood Methemoglobin 1.1 % Blood Gas Hemoglobin 13.3 G/DL Oxygen Delivery Device NASAL CANNULA Blood Gas Liter Flow 6 L/M White Blood Count 12.4 TH/MM3 Red Blood Count 4.34 MIL/MM3 Hemoglobin 12.0 GM/DL Hematocrit 36.9 % Mean Corpuscular Volume 85.1 FL Mean Corpuscular Hemoglobin 27.5 PG Mean Corpuscular Hemoglobin Concent 32.4 % Red Cell Distribution Width 14.3 % Platelet Count 478 TH/MM3 Mean Platelet Volume 8.5 FL Blood Urea Nitrogen 24 MG/DL Creatinine 0.96 MG/DL Random Glucose 139 MG/DL Calcium Level 8.6 MG/DL Sodium Level 145 MEQ/L Potassium Level 3.6 MEQ/L Chloride Level 106 MEQ/L Carbon Dioxide Level 32.9 MEQ/L Anion Gap 6 MEQ/L Estimat Glomerular Filtration Rate 78 ML/MIN Imaging Last 48 hours Impressions Chest X-Ray 05/10/17 0000 Signed Impressions: Service Date/Time: Wednesday, May 10, 2017 09:01 - CONCLUSION: 1. Significant improved pulmonary vascular congestion pattern. 2. Residual bibasilar airspace disease. Alexander Posada MD (Roxie Villagomez) Assessment and Plan Problem List: (1) Pressure ulcer ICD Codes: L89.90 - Pressure ulcer of unspecified site, unspecified stage Status: Acute (2) Acute myocardial infarction ICD Codes: I21.9 - Acute myocardial infarction, unspecified Status: Acute (3) Venous stasis ulcer ICD Codes: I83.009 - Varicose veins of unspecified lower extremity with ulcer of unspecified site; L97.909 - Non-pressure chronic ulcer of unspecified part of unspecified lower leg with unspecified severity Status: Acute (4) COPD (chronic obstructive pulmonary disease) ICD Codes: J44.9 - Chronic obstructive pulmonary disease, unspecified (5) Coronary artery disease ICD Codes: I25.10 - Atherosclerotic heart disease of [place] coronary artery without angina pectoris (6) CHF (congestive heart failure) ICD Codes: I50.9 - Heart failure, unspecified Assessment and Plan 71 yo WM with COPD, DM, HTN, PAD and CAD presented with left lower leg osteomyelitis. CAD- cardiac cath demonstrated severe multivessel disease. CV surgical team following and will consider CABG after a period of recovery from leg infection CHF- cardiomyopathy EF 35-40%. CXr shows improvement of vascular congestions. using bipap. cont lasix PAD- s/p peripheral angiogram HAT BLOCK BENCH HAND L ext iliac and atherectomy and HAT BLOCK BENCH HAND post tibial. consider SNF (Roxie Villagomez) Assessment and Plan continue antibiotics and wound care CT surgery following for CABG after infection resolved. doppler pulse AT/PT LLE. avoided stent due to infection. no good surgical targets (distal runoff is main issue with occluded anterior tibial artery) at this point, I think he needs time to see if wound will heal, and if not then consider one more attempt to improve inflow or amputation. OK to transfer to floor from cardio standpoint (Jonny Melchor MD) Problem Qualifiers (1) Pressure ulcer: (2) Acute myocardial infarction: Qualified Codes: I21.3 - ST elevation (STEMI) myocardial infarction of unspecified site (3) Venous stasis ulcer: Qualified Codes: I83.023 - Varicose veins of left lower extremity with ulcer of ankle; L97.321 - Non-pressure chronic ulcer of left ankle limited to breakdown of skin Roxie Villagomez May 11, 2017 09:07 Jonny Melchor MD May 11, 2017 12:14
[2017-05-11] MEDS: HEPARIN SODIUM - SQ 10,000 UNITS/ML VIAL SQ SCH ×2 (09:41→17:14)
[2017-05-11] MEDS: VANCOMYCIN INJ 1,250 MG in SODIUM CHLOR 0.9% 250 ML INJ 250 ML IV SCH (13:06)
[2017-05-12] VITALS (8 sets, daily range): BP systolic 128–146; BP diastolic 67–82; PULSE 63–92; RESP 16–22; TEMP 97.8–99.2; O2SAT 91–98
[2017-05-12] MEDS: HEPARIN SODIUM - SQ 10,000 UNITS/ML VIAL SQ SCH ×3 (01:00→17:16)
[2017-05-12] MEDS ORDERED: PHARMACY ORDERED LAB ONE ×2 (05:45→23:45)
[2017-05-12 05:56] LABS: MEAN CELL VOLUME 84.8 FL (80.0-100.0); MEAN CORPUSCULAR HEMOGLOBIN 27.7 PG (27.0-34.0); MEAN CORPUSCULAR HGB CONC 32.7 % (32.0-36.0); PLATELET COUNT 463 TH/MM3 (150-450); RED BLOOD COUNT 4.48 MIL/MM3 (4.50-5.90); RED CELL DISTRIBUTION WIDTH 14.1 % (11.6-17.2); REVIEW FLAG FINAL; WHITE BLOOD COUNT 10.8 TH/MM3 (4.0-11.0)
[2017-05-12 06:18] LABS: BICARBONATE 34.3 MEQ/L (21.0-32.0); POTASSIUM 3.5 MEQ/L (3.5-5.1)
[2017-05-12] MEDS: VANCOMYCIN INJ 1,250 MG in SODIUM CHLOR 0.9% 250 ML INJ 250 ML IV SCH (06:33)
[2017-05-12] MEDS: RESP: ALBUTEROL 2.5 MG/IPRATROPIUM 0.5 MG NEB (SCH) NEB (07:19)
[2017-05-12] MEDS: INSULIN ASPART SUPPLEMENTAL SCALE SQ SCH ×4 (07:54→21:00)
--- NOTE | 2017-05-12 08:43 | HHI.PR ---
Subjective Remarks Patient is sitting up in the chair today on NC, 5L. Otherwise he denies chest pain. States his breathing is about the same. Objective Vitals Vital Signs Date Time Temp Pulse Resp B/P (MAP) Pulse Ox O2 Delivery O2 Flow Rate FiO2 05/12/17 07:19 97 Nasal Cannula 5.00 05/12/17 07:00 64 05/12/17 07:00 98.0 64 18 129/70 (89) 98 05/12/17 07:00 95 Nasal Cannula 5.00 Bi-Pap 05/12/17 04:47 97 60 05/12/17 03:00 98 Bi-Pap 60 05/12/17 03:00 63 05/12/17 03:00 98.2 64 17 135/73 (93) 98 05/11/17 23:00 98.5 88 18 125/67 (86) 97 05/11/17 23:00 66 05/11/17 23:00 97 Nasal Cannula 60 Bi-Pap 05/11/17 22:50 97 60 05/11/17 20:51 97 Nasal Cannula 6.00 05/11/17 19:15 70 05/11/17 19:15 97.7 71 20 127/64 (85) 94 05/11/17 19:15 94 Nasal Cannula 6.00 05/11/17 15:00 97.6 70 20 119/65 (83) 99 05/11/17 15:00 99 Partial Non-Rebreather 70 05/11/17 15:00 70 05/11/17 11:00 98 05/11/17 11:00 97 Partial Non-Rebreather 70 05/11/17 11:00 98.4 98 20 140/82 (101) 94 05/11/17 11:00 98.4 98 20 140/82 (101) 94 05/11/17 09:05 97 Venturi Mask 50 I/O 05/11/17 05/11/17 05/11/17 05/12/17 05/12/17 05/12/17 07:00 15:00 23:00 07:00 15:00 23:00 Intake Total 630 ml 1160 ml 240 ml 250 ml Output Total 900 ml 1475 ml 960 ml Balance -270 ml -315 ml -720 ml 250 ml Intake Oral 630 ml 1160 ml 240 ml IV Total 250 ml Output Urine Total 900 ml 1475 ml 960 ml # Bowel Movements 0 0 0 Result Diagram: 05/12/1739 05/12/17538 Objective Remarks GENERAL: Elderly male in no acute distress. CARDIOVASCULAR: Normal rate and regular rhythm without murmurs, gallops, or rubs. RESPIRATORY: Diminished breath sounds at the bases otherwise clear to auscultation bilaterally. GASTROINTESTINAL: Abdomen soft, non-tender, non-distended. Normal active bowel sounds MUSCULOSKELETAL: Left lateral ankle has a large eschar. Multiple wounds involving the right dorsal toes. Plantar surface is status post debridement by podiatry, dressing appear intact NEURO: Alert & Oriented x4 to person, place, time, situation. Moves all ext x4 PSYCH: Appropriate mood and affect. Procedures None A/P Assessment and Plan 71 Y/O male with multiple comorbid conditions including acute respiratory failure secondary to CHF and COPD. Patient had and NSTEMI, multivessel disease in need of CABG. He also presented with sepsis secondary to foot infection and osteomyelitis. Apparent PAD. Patient still critically ill requiring a lot of oxygen support. CT surgery recommends continuing medical management and rehab prior to CABG. Podiatry awaiting recs from ID on whether or not he can be treated with IV antibiotics for osteomyelitis for now as he is a high surgical risk given the need for CABG. If he can be treated with antibiotics, ultimately he may go to rehab, later on have CABG, then podiatry intervention if needed. Acute respiratory failure suspect due to combination of pulmonary edema from acute systolic CHF, EF 30%. Patient also has COPD. - On and off bipap. Still high oxygen requirement. Responding to diuresis. - Continue Lasix 40 mg IV BID. -KCl 20 meq PO BID -cont BB and ACEi -follow BMP and urine output via tyson Sepsis due to Diabetic foot ulcer with infection and osteomyelitis, Left lower ext cellulitis, also has PAD - Patient met sepsis criteria with elevated white count of 18.5, tachycardia with heart rate of 94 and source of left leg cellulitis and open diabetic left ankle ulcer. - X ray of the left ankle is unremarkable. MRI shows abnormal marrow edema within the lateral malleolus concerning for osteomyelitis. - Suspect underlying PAD. - IV vancomycin and Zosyn. Consulted pharmacy to dose. will monitor the response. - blood cultures negative so far/ wound culture with MRSA and strep - consulted wound care nurse. - podiatry following. S/P bedside debridement - ID following. Per ID, no absolute contraindication for surgery given the benefit of surgery outweigh the risks - s/p left lower extremity angiogram with balloon angioplasty in the left external iliac artery, and angioplasty and atherectomy in the posterior tibial and posterior tibial peritoneal trunk by Dr. casarez. doppler pulse AT/PT LLE. no stent placed due to ongoing infection. Encephalopathy vs Delirium: - Likely delirium secondary to medical conditions above. Resolved NSTEMI - Cardiology following. Status post left heart catheterization today with Dr. casarez showing 80% stenosis in the distal LAD, 99% occlusion of the left circumflex, diffusely diseased right coronary artery CT surgery following - continue ASA and statin, metoprolol, enalapril 20 mg PO BID. - Metoprolol 25mg BID. 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 Continue maximal medical management. CT surgery to reevaluate for timing of surgery next week. Hypertension - Continue Norvasc, enalapril and metoprolol - Monitor blood pressure and adjust treatment accordingly. Diabetes Mellitus. - Hemoglobin A1c 7.3%. - cont levemir to 5 units subq bid, continue sliding scale insulin with Aspart. COPD, 40 pack year tobacco history -Breathing treatment as needed. Hold off on steroid for now. he is moving air better, suspect hypoxemia secondary to cardiac cause - Supplemental oxygen to keep sats>90% heparin for DVT prophylaxis Lesvia Dumont MD May 12, 2017 08:43
[2017-05-12] MEDS: INSULIN DETEMIR 100 UNITS/ML VIAL SQ SCH ×2 (08:48→21:00)
[2017-05-12] MEDS: FUROSEMIDE 100 MG/10 ML VIAL IV PUSH SCH ×2 (08:48→17:16)
[2017-05-12] MEDS: SODIUM CHLORIDE 0.9% FLUSH 10 ML FLUSH IV FLUSH SCH ×2 (08:49→21:00)
[2017-05-12] MEDS: METOPROLOL TARTRATE 25 MG TAB PO SCH ×2 (08:49→21:00)
[2017-05-12] MEDS: ATORVASTATIN 40 MG TAB PO SCH (08:49)
[2017-05-12] MEDS: ENALAPRIL MALEATE 10 MG TAB PO SCH ×2 (08:49→21:00)
[2017-05-12] MEDS: ASPIRIN EC 81 MG TABEC PO SCH (08:49)
[2017-05-12] MEDS: COLLAGENASE OINT 30 GM TUBE TOPICAL SCH (08:50)
[2017-05-12] MEDS ORDERED: POTASSIUM CHLORIDE 10 MEQ CONTROLLED RELEASE TAB PO SCH (10:45)
--- NOTE | 2017-05-12 11:41 | PD.CARD.PN ---
Subjective Subjective Remarks breathing well on nasal cannula. left leg remains painful. no chest pain (Roxie Villagomez) Objective Medications Current Medications Medications (Trade) Dose Ordered Sig/Tatyana Route Start Time Stop Time Status Last Admin (NS Flush) 2 ml UNSCH PRN IV FLUSH 05/04/17 08:15 05/05/17 17:26 (NS Flush) 2 ml BID IV FLUSH 05/04/17 09:00 05/12/17 08:49 (Tylenol) 650 mg Q4H PRN PO 05/04/17 08:15 05/05/17 03:15 (Zofran Inj) 4 mg Q6H PRN IVP 05/04/17 08:15 (Narcan Inj) 0.4 mg UNSCH PRN IV PUSH 05/04/17 08:15 (Milk Of Magnesia Liq) 30 ml Q12H PRN PO 05/04/17 08:15 (Senokot) 17.2 mg Q12H PRN PO 05/04/17 08:15 (Dulcolax Supp) 10 mg DAILY PRN RECTAL 05/04/17 08:15 (Lactulose Liq) 30 ml DAILY PRN PO 05/04/17 08:15 (Morphine Inj) 2 mg Q3H PRN IV PUSH 05/04/17 08:15 (Ecotrin Ec) 81 mg DAILY PO 05/04/17 09:00 05/12/17 08:49 (Nitrostat Sl) 0.4 mg Q5M PRN SL 05/04/17 08:15 (D50w (Vial) Inj) 50 ml UNSCH PRN IV PUSH 05/04/17 08:15 (Glucagon Inj) 1 mg UNSCH PRN OTHER 05/04/17 08:15 (NovoLOG SUPPLEMENTAL SCALE) 1 ACHS SLIDING SCALE SQ 05/04/17 12:00 05/11/17 20:45 Pharmacy Profile Note 0 ml @ 0 mls/hr UNSCH OTHER 05/04/17 15:15 (Vasotec) 20 mg BID PO 05/04/17 21:00 05/12/17 08:49 (Zanaflex) 4 mg HS PO 05/04/17 21:00 05/11/17 20:37 (Lipitor) 40 mg DAILY PO 05/05/17 09:00 05/12/17 08:49 (Duoneb Neb) 1 ampule Q4HR NEB PRN NEB 05/05/17 09:00 05/06/17 00:18 (Ultram) 50 mg Q8H PRN PO 05/05/17 09:00 (Lopressor) 25 mg Q12HR PO 05/05/17 21:00 05/12/17 08:49 (Santyl Oint) 1 applic DAILY TOPICAL 05/07/17 09:00 05/12/17 08:50 (Duoneb Neb) 1 ampule Q6HR WHILE AWAKE NEB NEB 05/08/17 14:00 05/12/17 07:19 (Atropine Inj) 0.5 mg UNSCH PRN IV PUSH 05/09/17 10:30 (fentaNYL INJ) 25 mcg Q30M PRN IV PUSH 05/09/17 10:30 (Lasix Inj) 40 mg BID@0900,1800 IV PUSH 05/09/17 18:00 05/12/17 08:48 Vancomycin HCl 1250 mg/Sodium Chloride 262.5 ml @ 250 mls/hr Q18H IV 05/10/17 00:00 05/12/17 06:33 (Levemir Inj) 8 units Q12HR SQ 05/11/17 09:00 05/12/17 08:48 (Heparin Inj) 5,000 units Q8H SQ 05/11/17 09:00 05/12/17 08:48 Miscellaneous Information SPECIFIC LAB TO BE PAM... ONCE ONCE .XX 05/12/17 23:45 05/12/17 23:46 Vital Signs / I&O Vital Signs Date Time Temp Pulse Resp B/P (MAP) Pulse Ox O2 Delivery O2 Flow Rate FiO2 05/12/17 11:00 95 Nasal Cannula 6.00 Bi-Pap 05/12/17 11:00 64 05/12/17 11:00 97.8 64 18 128/67 (87) 95 05/12/17 07:19 97 Nasal Cannula 5.00 05/12/17 07:00 64 05/12/17 07:00 98.0 64 18 129/70 (89) 98 05/12/17 07:00 95 Nasal Cannula 5.00 Bi-Pap 05/12/17 04:47 97 60 05/12/17 03:00 98 Bi-Pap 60 05/12/17 03:00 63 05/12/17 03:00 98.2 64 17 135/73 (93) 98 05/11/17 23:00 98.5 88 18 125/67 (86) 97 05/11/17 23:00 66 05/11/17 23:00 97 Nasal Cannula 60 Bi-Pap 05/11/17 22:50 97 60 05/11/17 20:51 97 Nasal Cannula 6.00 05/11/17 19:15 70 05/11/17 19:15 97.7 71 20 127/64 (85) 94 05/11/17 19:15 94 Nasal Cannula 6.00 05/11/17 15:00 97.6 70 20 119/65 (83) 99 05/11/17 15:00 99 Partial Non-Rebreather 70 05/11/17 15:00 70 I/O 05/11/17 05/11/17 05/11/17 05/12/17 05/12/17 05/12/17 07:00 15:00 23:00 07:00 15:00 23:00 Intake Total 630 ml 1160 ml 240 ml 250 ml Output Total 900 ml 1475 ml 960 ml Balance -270 ml -315 ml -720 ml 250 ml Intake Oral 630 ml 1160 ml 240 ml IV Total 250 ml Output Urine Total 900 ml 1475 ml 960 ml # Bowel Movements 0 0 0 Physical Exam GENERAL: SKIN: Warm and dry. HEAD: Atraumatic. Normocephalic. EYES: Pupils equal and round. ENT: No nasal bleeding or discharge. NECK: Trachea midline. No JVD. CARDIOVASCULAR: Regular rate and rhythm. no murmurs RESPIRATORY: No accessory muscle use. Clear to auscultation. Breath sounds equal bilaterally. GASTROINTESTINAL: Abdomen soft, non-tender, nondistended. Hepatic and splenic margins not palpable. MUSCULOSKELETAL: Extremities without clubbing, cyanosis, or edema. LLE wound well bandaged NEUROLOGICAL: Awake and alert. No obvious cranial nerve deficits. Normal speech. PSYCHIATRIC: Appropriate mood and affect; insight and judgment normal. Laboratory Laboratory Tests Test 05/11/17 14:12 05/12/17 05:39 Ammonia 25 MCMOL/L White Blood Count 10.8 TH/MM3 Red Blood Count 4.48 MIL/MM3 Hemoglobin 12.4 GM/DL Hematocrit 38.0 % Mean Corpuscular Volume 84.8 FL Mean Corpuscular Hemoglobin 27.7 PG Mean Corpuscular Hemoglobin Concent 32.7 % Red Cell Distribution Width 14.1 % Platelet Count 463 TH/MM3 Mean Platelet Volume 8.5 FL Blood Urea Nitrogen 24 MG/DL Creatinine 1.06 MG/DL Random Glucose 145 MG/DL Calcium Level 8.6 MG/DL Sodium Level 143 MEQ/L Potassium Level 3.5 MEQ/L Chloride Level 105 MEQ/L Carbon Dioxide Level 34.3 MEQ/L Anion Gap 4 MEQ/L Estimat Glomerular Filtration Rate 69 ML/MIN (Roxie Villagomez) Assessment and Plan Problem List: (1) Pressure ulcer ICD Codes: L89.90 - Pressure ulcer of unspecified site, unspecified stage Status: Acute (2) Acute myocardial infarction ICD Codes: I21.9 - Acute myocardial infarction, unspecified Status: Acute (3) Venous stasis ulcer ICD Codes: I83.009 - Varicose veins of unspecified lower extremity with ulcer of unspecified site; L97.909 - Non-pressure chronic ulcer of unspecified part of unspecified lower leg with unspecified severity Status: Acute (4) COPD (chronic obstructive pulmonary disease) ICD Codes: J44.9 - Chronic obstructive pulmonary disease, unspecified (5) Coronary artery disease ICD Codes: I25.10 - Atherosclerotic heart disease of [place] coronary artery without angina pectoris (6) CHF (congestive heart failure) ICD Codes: I50.9 - Heart failure, unspecified Assessment and Plan 71 yo WM with COPD, DM, HTN, PAD and CAD presented with left lower leg osteomyelitis. CAD- cardiac cath demonstrated severe multivessel disease. CV surgical team following and will consider CABG after a period of recovery from leg infection CHF- cardiomyopathy EF 35-40%. 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 no stents placed due to leg infection, no good surgical targets. consider repeat PCI in the future if leg wounds do not heal consider SNF (Roxie Villagomez) Assessment and Plan continue current care (Jonny Melchor MD) Problem Qualifiers (1) Pressure ulcer: (2) Acute myocardial infarction: Qualified Codes: I21.3 - ST elevation (STEMI) myocardial infarction of unspecified site (3) Venous stasis ulcer: Qualified Codes: I83.023 - Varicose veins of left lower extremity with ulcer of ankle; L97.321 - Non-pressure chronic ulcer of left ankle limited to breakdown of skin Roxie Villagomez May 12, 2017 11:41 Jonny Melchor MD May 12, 2017 16:02
[2017-05-13] VITALS (13 sets, daily range): BP systolic 123–140; BP diastolic 71–75; PULSE 62–94; RESP 14–18; TEMP 97.9–99.2; O2SAT 93–97
[2017-05-13] MEDS: VANCOMYCIN INJ 1,250 MG in SODIUM CHLOR 0.9% 250 ML INJ 250 ML IV SCH ×2 (00:28→17:45)
[2017-05-13] MEDS: HEPARIN SODIUM - SQ 10,000 UNITS/ML VIAL SQ SCH ×3 (01:00→17:46)
[2017-05-13 04:39] LABS: HEMATOCRIT 39.1 % (39.0-51.0); MEAN CELL VOLUME 84.7 FL (80.0-100.0); MEAN CORPUSCULAR HEMOGLOBIN 27.5 PG (27.0-34.0); MEAN CORPUSCULAR HGB CONC 32.5 % (32.0-36.0); PLATELET COUNT 464 TH/MM3 (150-450); RED BLOOD COUNT 4.62 MIL/MM3 (4.50-5.90); RED CELL DISTRIBUTION WIDTH 14.4 % (11.6-17.2); REVIEW FLAG FINAL
--- NOTE | 2017-05-13 07:52 | PD.CARD.PN ---
Subjective Subjective Remarks On BiPAP, dyspnea unchanged. Denies any chest pain. Lower extremity pain is improved. Negative fluid balance overnight. (Solomon Henderson) Objective Medications Current Medications Medications (Trade) Dose Ordered Sig/Tatyana Route Start Time Stop Time Status Last Admin (NS Flush) 2 ml UNSCH PRN IV FLUSH 05/04/17 08:15 05/05/17 17:26 (NS Flush) 2 ml BID IV FLUSH 05/04/17 09:00 05/12/17 21:00 (Tylenol) 650 mg Q4H PRN PO 05/04/17 08:15 05/05/17 03:15 (Zofran Inj) 4 mg Q6H PRN IVP 05/04/17 08:15 (Narcan Inj) 0.4 mg UNSCH PRN IV PUSH 05/04/17 08:15 (Milk Of Magnesia Liq) 30 ml Q12H PRN PO 05/04/17 08:15 (Senokot) 17.2 mg Q12H PRN PO 05/04/17 08:15 (Dulcolax Supp) 10 mg DAILY PRN RECTAL 05/04/17 08:15 (Lactulose Liq) 30 ml DAILY PRN PO 05/04/17 08:15 (Morphine Inj) 2 mg Q3H PRN IV PUSH 05/04/17 08:15 (Ecotrin Ec) 81 mg DAILY PO 05/04/17 09:00 05/12/17 08:49 (Nitrostat Sl) 0.4 mg Q5M PRN SL 05/04/17 08:15 (D50w (Vial) Inj) 50 ml UNSCH PRN IV PUSH 05/04/17 08:15 (Glucagon Inj) 1 mg UNSCH PRN OTHER 05/04/17 08:15 (NovoLOG SUPPLEMENTAL SCALE) 1 ACHS SLIDING SCALE SQ 05/04/17 12:00 05/12/17 21:00 Pharmacy Profile Note 0 ml @ 0 mls/hr UNSCH OTHER 05/04/17 15:15 (Vasotec) 20 mg BID PO 05/04/17 21:00 05/12/17 21:00 (Lipitor) 40 mg DAILY PO 05/05/17 09:00 05/12/17 08:49 (Duoneb Neb) 1 ampule Q4HR NEB PRN NEB 05/05/17 09:00 05/06/17 00:18 (Ultram) 50 mg Q8H PRN PO 05/05/17 09:00 (Lopressor) 25 mg Q12HR PO 05/05/17 21:00 05/12/17 21:00 (Santyl Oint) 1 applic DAILY TOPICAL 05/07/17 09:00 05/12/17 08:50 (Atropine Inj) 0.5 mg UNSCH PRN IV PUSH 05/09/17 10:30 (fentaNYL INJ) 25 mcg Q30M PRN IV PUSH 05/09/17 10:30 (Lasix Inj) 40 mg BID@0900,1800 IV PUSH 05/09/17 18:00 05/12/17 17:16 Vancomycin HCl 1250 mg/Sodium Chloride 262.5 ml @ 250 mls/hr Q18H IV 05/10/17 00:00 05/13/17 00:28 (Levemir Inj) 8 units Q12HR SQ 05/11/17 09:00 05/12/17 21:00 (Heparin Inj) 5,000 units Q8H SQ 05/11/17 09:00 05/13/17 01:00 Vital Signs / I&O Vital Signs Date Time Temp Pulse Resp B/P (MAP) Pulse Ox O2 Delivery O2 Flow Rate FiO2 05/13/17 05:15 94 50 05/13/17 04:00 94 Nasal Cannula 6.00 Bi-Pap 05/13/17 04:00 98.8 71 18 140/75 (96) 94 05/13/17 04:00 70 05/13/17 03:30 95 Nasal Cannula 6.00 05/13/17 01:30 97 50 05/13/17 00:00 66 05/13/17 00:00 98.1 66 18 135/73 (93) 96 05/13/17 00:00 96 Bi-Pap 50 05/12/17 22:50 95 50 05/12/17 20:00 74 05/12/17 20:00 98.8 74 16 129/69 (89) 96 05/12/17 20:00 96 Nasal Cannula 6.00 Bi-Pap 05/12/17 15:00 91 Nasal Cannula 6.00 Bi-Pap 05/12/17 15:00 92 05/12/17 15:00 99.2 92 22 146/82 (103) 91 05/12/17 11:00 95 Nasal Cannula 6.00 Bi-Pap 05/12/17 11:00 64 05/12/17 11:00 97.8 64 18 128/67 (87) 95 I/O 05/12/17 05/12/17 05/12/17 05/13/17 05/13/17 05/13/17 07:00 15:00 23:00 07:00 15:00 23:00 Intake Total 240 ml 250 ml 1270 ml 502.5 ml Output Total 960 ml 1100 ml 1150 ml Balance -720 ml 250 ml 170 ml -647.5 ml Intake Oral 240 ml 1270 ml 240 ml IV Total 250 ml 262.5 ml Output Urine Total 960 ml 1100 ml 1150 ml # Bowel Movements 0 1 0 Physical Exam GENERAL: Well-developed well-nourished. In no acute distress. NECK: No carotid bruits. No JVD. CARDIOVASCULAR: Regular rate and rhythm. No murmur appreciated. RESPIRATORY: No accessory muscle use. Some expiratory wheezing. MUSCULOSKELETAL: Left lower extremity with venous stasis skin changes, left ankle ulcer, trace edema, faintly palpable pedal pulses. Right lower extremity with 2+ DP/PT pulses and no edema. NEUROLOGICAL: Awake and alert. Normal speech. Laboratory Laboratory Tests Test 05/13/17 00:15 05/13/17 03:57 Vancomycin Level Trough 18.9 MCG/ML White Blood Count 11.0 TH/MM3 Red Blood Count 4.62 MIL/MM3 Hemoglobin 12.7 GM/DL Hematocrit 39.1 % Mean Corpuscular Volume 84.7 FL Mean Corpuscular Hemoglobin 27.5 PG Mean Corpuscular Hemoglobin Concent 32.5 % Red Cell Distribution Width 14.4 % Platelet Count 464 TH/MM3 Mean Platelet Volume 8.9 FL Imaging Last Impressions Chest X-Ray 05/10/17 0000 Signed Impressions: Service Date/Time: Wednesday, May 10, 2017 09:01 - CONCLUSION: 1. Significant improved pulmonary vascular congestion pattern. 2. Residual bibasilar airspace disease. Alexander Posada MD Lower Extremity Ultrasound 05/09/17 0000 Signed Impressions: Service Date/Time: April 17:40 - CONCLUSION: Normal examination. Theo Allen MD Carotid Artery Ultrasound 05/09/17 0000 Signed Impressions: Service Date/Time: April 18:07 - CONCLUSION: 1. Moderate calcified plaque around the carotid bifurcations bilaterally without evidence for hemodynamically significant stenosis. Theo Allen MD Ankle MRI 05/08/17 0000 Signed Impressions: Service Date/Time: Monday, May 08, 2017 09:48 - CONCLUSION: 1. Abnormal marrow edema within the lateral malleolus and subtle contrast enhancement. Findings are concerning for osteomyelitis. 2. Cellulitic changes in the soft tissues around the lateral aspect of the foot and ankle. Huseyin Muñoz MD Ankle X-Ray 05/04/17 0000 Signed Impressions: Service Date/Time: Thursday, May 04, 2017 15:27 - CONCLUSION: Mild degenerative type changes. Otherwise, unremarkable exam for patient's age. Lee Yao MD (Solomon Henderson) Assessment and Plan Problem List: (1) Pressure ulcer ICD Codes: L89.90 - Pressure ulcer of unspecified site, unspecified stage Status: Acute (2) Acute myocardial infarction ICD Codes: I21.9 - Acute myocardial infarction, unspecified Status: Acute (3) Venous stasis ulcer ICD Codes: I83.009 - Varicose veins of unspecified lower extremity with ulcer of unspecified site; L97.909 - Non-pressure chronic ulcer of unspecified part of unspecified lower leg with unspecified severity Status: Acute (4) COPD (chronic obstructive pulmonary disease) ICD Codes: J44.9 - Chronic obstructive pulmonary disease, unspecified (5) Coronary artery disease ICD Codes: I25.10 - Atherosclerotic heart disease of [place] coronary artery without angina pectoris (6) CHF (congestive heart failure) ICD Codes: I50.9 - Heart failure, unspecified Assessment and Plan 71-year-old male with a past medical history of DM, HTN who presented for left lower extremity swelling, ulcer, and pain. CAD: cardiac cath 05/09/17 demonstrated severe multivessel disease. CV surgical team following and will consider CABG after a period of recovery from leg infection. Systolic CHF: cardiomyopathy EF 35-40%. 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 no stents placed due to leg infection, no good surgical targets. consider repeat PCI in the future if leg wounds do not heal. LLE osteomyelitis: Continue antibiotics and wound care per ID and podiatry. (Solomon Henderson) Assessment and Plan at this point, I think he is going to need time to allow the LLE to heal. I'd like to avoid another invasive procedure at this time given the poor anatomy and doppler pulses. Bipap at night. change diuretic to PO CABG time per CT surgery. He is asymptomatic from coronary perspective. CHF is fairly well compensated now. will sign off call with further questions (Jonny Melchor MD) Problem Qualifiers (1) Pressure ulcer: (2) Acute myocardial infarction: Qualified Codes: I21.3 - ST elevation (STEMI) myocardial infarction of unspecified site (3) Venous stasis ulcer: Qualified Codes: I83.023 - Varicose veins of left lower extremity with ulcer of ankle; L97.321 - Non-pressure chronic ulcer of left ankle limited to breakdown of skin Solomon Henderson May 13, 2017 07:52 Jonny Melchor MD May 13, 2017 14:01
[2017-05-13] MEDS: INSULIN ASPART SUPPLEMENTAL SCALE SQ SCH ×4 (08:00→21:00)
[2017-05-13] MEDS: SODIUM CHLORIDE 0.9% FLUSH 10 ML FLUSH IV FLUSH SCH ×2 (08:38→21:00)
--- NOTE | 2017-05-13 08:43 | HHI.PR ---
Subjective Remarks Patient reports is feeling slightly better. Still required BiPAP last night. Objective Vitals Vital Signs Date Time Temp Pulse Resp B/P (MAP) Pulse Ox O2 Delivery O2 Flow Rate FiO2 05/13/17 08:37 96 Nasal Cannula 6.00 05/13/17 05:15 94 50 05/13/17 04:00 94 Nasal Cannula 6.00 Bi-Pap 05/13/17 04:00 98.8 71 18 140/75 (96) 94 05/13/17 04:00 70 05/13/17 03:30 95 Nasal Cannula 6.00 05/13/17 01:30 97 50 05/13/17 00:00 66 05/13/17 00:00 98.1 66 18 135/73 (93) 96 05/13/17 00:00 96 Bi-Pap 50 05/12/17 22:50 95 50 05/12/17 20:00 74 05/12/17 20:00 98.8 74 16 129/69 (89) 96 05/12/17 20:00 96 Nasal Cannula 6.00 Bi-Pap 05/12/17 15:00 91 Nasal Cannula 6.00 Bi-Pap 05/12/17 15:00 92 05/12/17 15:00 99.2 92 22 146/82 (103) 91 05/12/17 11:00 95 Nasal Cannula 6.00 Bi-Pap 05/12/17 11:00 64 05/12/17 11:00 97.8 64 18 128/67 (87) 95 I/O 05/12/17 05/12/17 05/12/17 05/13/17 05/13/17 05/13/17 07:00 15:00 23:00 07:00 15:00 23:00 Intake Total 240 ml 250 ml 1270 ml 502.5 ml Output Total 960 ml 1100 ml 1150 ml Balance -720 ml 250 ml 170 ml -647.5 ml Intake Oral 240 ml 1270 ml 240 ml IV Total 250 ml 262.5 ml Output Urine Total 960 ml 1100 ml 1150 ml # Bowel Movements 0 1 0 Result Diagram: 05/13/17 0357 05/12/17 0539 Objective Remarks GENERAL: Elderly male in no acute distress. CARDIOVASCULAR: Normal rate and regular rhythm without murmurs, gallops, or rubs. RESPIRATORY: Diminished breath sounds at the bases otherwise clear to auscultation bilaterally. GASTROINTESTINAL: Abdomen soft, non-tender, non-distended. Normal active bowel sounds MUSCULOSKELETAL: Left lateral ankle dressing is clean. Multiple wounds involving the right dorsal toes. Plantar surface is status post debridement by podiatry, dressing appear intact NEURO: Alert & Oriented x4 to person, place, time, situation. Moves all ext x4 PSYCH: Appropriate mood and affect. Procedures None A/P Assessment and Plan 71 Y/O male with multiple comorbid conditions including acute respiratory failure secondary to CHF and COPD. Patient had and NSTEMI, multivessel disease in need of CABG. He also presented with sepsis secondary to foot infection and osteomyelitis. Apparent PAD. Patient still critically ill requiring a lot of oxygen support. CT surgery recommends continuing medical management and rehab prior to CABG. Podiatry awaiting recs from ID on whether or not he can be treated with IV antibiotics for osteomyelitis for now as he is a high surgical risk given the need for CABG. he needs to be medically optimized, later on have CABG, then podiatry intervention if needed. Acute respiratory failure suspect due to combination of pulmonary edema from acute systolic CHF, EF 30%. Patient also has COPD. -BiPAP at night. Still high oxygen requirement. Responding to diuresis. - Continue Lasix 40 mg IV BID. -KCl 20 meq PO BID -cont BB and ACEi -follow BMP and urine output via tyson Sepsis due to Diabetic foot ulcer with infection and osteomyelitis, Left lower ext cellulitis, also has PAD - Patient met sepsis criteria with elevated white count of 18.5, tachycardia with heart rate of 94 and source of left leg cellulitis and open diabetic left ankle ulcer. - X ray of the left ankle is unremarkable. MRI shows abnormal marrow edema within the lateral malleolus concerning for osteomyelitis. - Suspect underlying PAD. - IV vancomycin and Zosyn. Consulted pharmacy to dose. will monitor the response. - blood cultures negative so far/ wound culture with MRSA and strep - consulted wound care nurse. - podiatry following. S/P bedside debridement - ID following. Per ID, no absolute contraindication for surgery given the benefit of surgery outweigh the risks - s/p left lower extremity angiogram with balloon angioplasty in the left external iliac artery, and angioplasty and atherectomy in the posterior tibial and posterior tibial peritoneal trunk by Dr. casarez. doppler pulse AT/PT LLE. no stent placed due to ongoing infection and no clear target. Encephalopathy vs Delirium: - Likely delirium secondary to medical conditions above. Resolved NSTEMI - Cardiology following. Status post left heart catheterization today with Dr. casarez showing 80% stenosis in the distal LAD, 99% occlusion of the left circumflex, diffusely diseased right coronary artery CT surgery following - continue ASA and statin, metoprolol, enalapril 20 mg PO BID. - Metoprolol 25mg BID. - echo with EF 35% - telemetry - Continue maximal medical management. CT surgery to determine timing of surgery. Hypertension - Continue Norvasc, enalapril and metoprolol - Monitor blood pressure and adjust treatment accordingly. Diabetes Mellitus. - Hemoglobin A1c 7.3%. - cont levemir to 5 units subq bid, continue sliding scale insulin with Aspart. COPD, 40 pack year tobacco history -Breathing treatment as needed. Hold off on steroid for now. he is moving air better, suspect hypoxemia secondary to cardiac cause - Supplemental oxygen to keep sats>90% heparin for DVT prophylaxis Lesvia Dumont MD May 13, 2017 08:43
[2017-05-13] MEDS: METOPROLOL TARTRATE 25 MG TAB PO SCH ×2 (08:55→21:00)
[2017-05-13] MEDS: ATORVASTATIN 40 MG TAB PO SCH (08:55)
[2017-05-13] MEDS: INSULIN DETEMIR 100 UNITS/ML VIAL SQ SCH ×2 (08:55→21:00)
[2017-05-13] MEDS: ENALAPRIL MALEATE 10 MG TAB PO SCH ×2 (08:55→21:24)
[2017-05-13] MEDS: ASPIRIN EC 81 MG TABEC PO SCH (08:55)
[2017-05-13] MEDS: FUROSEMIDE 100 MG/10 ML VIAL IV PUSH SCH ×2 (08:56→17:46)
[2017-05-13] MEDS: COLLAGENASE OINT 30 GM TUBE TOPICAL SCH (08:57)
--- NOTE | 2017-05-13 09:43 | RADRPT ---
EXAM DATE/TIME: 05/13/2017 09:12 [facility] COMPARISON: CHEST SINGLE AP, May 10, 2017, 9:01. INDICATIONS : Short of breath MEDICAL HISTORY : Hypercholesterolemia. Hypertension. Chronic obstructive pulmonary disease. Hearing loss. Incontinence . Osteoarthritis. Diabetes. Skin cancer. MRSA SURGICAL HISTORY : Left hand surgery. ENCOUNTER: Subsequent ACUITY: 2 weeks PAIN SCORE: 0/10 LOCATION: Bilateral chest FINDINGS: Increasing cardiomegaly and interstitial edema with bibasilar consolidative changes. Trace pleural e ffusion on the left. Consolidation is worse left base. The there is no pneumothorax. Degenerative changes about both shoulders. CONCLUSION: Increasing congestive failure. Rosendo Muñoz MD FACR on May 13, 2017 at 9:40 Board Certified Radiologist. This report was verified electronically.
[2017-05-13 12:30] LABS: ALT (GPT) 30 U/L (12-78); ANION GAP 3 MEQ/L (5-15); AST (GOT) 24 U/L (15-37); BICARBONATE 35.8 MEQ/L (21.0-32.0); BLOOD UREA NITROGEN 25 MG/DL (7-18); CHLORIDE 103 MEQ/L (98-107); GLOMERULAR FILTRATION RATE 75 ML/MIN (>89); MAGNESIUM 2.2 MG/DL (1.5-2.5); POTASSIUM 3.9 MEQ/L (3.5-5.1); SODIUM (NA) 142 MEQ/L (136-145)
[2017-05-13 12:31] LABS: ALKALINE PHOSPHATASE 109 U/L (45-117); TOTAL BILIRUBIN ADULT 0.3 MG/DL (0.2-1.0)
--- NOTE | 2017-05-13 12:42 | PD.CAR.PN ---
CVT Progress Note Subjective/Hospital Course: 71/ male presented with complaint of worsening infection in his left ankle that he has had off and on for the last 3 weeks. He had a open wound on the outside aspect of the ankle. He has longstanding history of diabetes on insulin. He has also been complaining of some increased weakness and fatigue for the past 6 months. He said he had normally ambulated unassisted, was having more difficulty getting around due to the weakness and discomfort. Incidentally on admission he had EKG done which showed some ST elevation in lead II only, however, he did have some T-wave depression in the lateral leads, some poor R- wave progression, no prior EKG to compare. He then had a troponin elevated at 1.26. He was ruled in for non-STEMI. He was taken then to the laborer salvage by Dr. Melchor this morning which showed the LAD approximately 20% stenosis, moderate sized diagonal branches, 40% proximal stenosis, the LAD beyond the takeoff of the diagonal was 90% stenosed, the second diagonal branch had some luminal irregularities, the LAD distal had 80% lesion, left circ had a 99% subtotal occlusion and the right coronary artery had heavily calcified subtotal occlusion , ejection fraction approximately 35%. S/p left external iliac NUTRITION PROGRAM INSTRUCTOR (good common femoral artery pulse) and s/p atherectomy/NUTRITION PROGRAM INSTRUCTOR left posterior tibial artery. anterior tibial artery occluded. Doppler PT and AT. No vascular surgical options given poor runoff with small vessels (all distal disease). . We were consulted to evaluate for coronary artery bypass grafting. PAST MEDICAL HISTORY: Hypertension, Uncontrolled diabetes mellitus, COPD with ongoing tobacco use , severe PAD , Excision of melanoma from the face, chronic wound on his left ankle for about 3 weeks. left ankle wound MRSA group A Beta strep / on IV antibiotics carotid OK no DVT await PFT MRI cleft ankle concern for osteomyelitis 05/10 pt transfer to CVICU yesterday evening resp failure, hypoxemia, placed on Bipap PO2 66 on 60% fio2 / pt now on 6 liters / 91% fi02 was given lasix , also on scheduled diuretic , denied any chest pain , followed by ID agree that pt will need time to recover and continued IV antibiotics/ wound care would continue to maximize medical therapy and re-eval timing for surgery next week may need SNF / PT and return for CABG s/p left external iliac NUTRITION PROGRAM INSTRUCTOR (good common femoral artery pulse) and s/p atherectomy/NUTRITION PROGRAM INSTRUCTOR left posterior tibial artery. anterior tibial artery occluded. Doppler PT and AT. No vascular surgical options given poor runoff with small vessels (all distal disease). Likely will need time and IV antiobiotics +/- hyperbaric therapy. 05/13 pt still on Bipap at night now 5 liter nasal cannula BNP 1800, poor nutritional status with Albumin 1.8 FEV1 0.82/ podiatry following wounds on leg re-commend optimizing medical therapy for now PT/OT Objective: GENERAL: awake alert SKIN: Warm and dry. poor skin turgo HEAD: Normocephalic. EYES: No scleral icterus. No injection or drainage. NECK: Supple, trachea midline. No JVD or lymphadenopathy. CARDIOVASCULAR: Regular rate and rhythm without murmurs, gallops, or rubs. RESPIRATORY: Breath sounds equal bilaterally. No accessory muscle use. coarse bilateral breath sounds , faint wheeze GASTROINTESTINAL: Abdomen soft, non-tender, nondistended. MUSCULOSKELETAL: No cyanosis, or edema. BACK: Nontender without obvious deformity. No CVA tenderness. ext dressing to both lower ankle area , doppler pulse only Vital Signs Date Time Temp Pulse Resp B/P (MAP) Pulse Ox O2 Delivery O2 Flow Rate FiO2 05/13/17 11:00 97.9 63 15 135/75 (95) 97 05/13/17 11:00 63 05/13/17 11:00 Nasal Cannula 5.00 05/13/17 08:37 96 Nasal Cannula 6.00 05/13/17 07:00 Nasal Cannula 5.00 05/13/17 07:00 97.9 63 15 135/75 (95) 97 05/13/17 07:00 63 05/13/17 05:15 94 50 05/13/17 04:00 94 Nasal Cannula 6.00 Bi-Pap 05/13/17 04:00 98.8 71 18 140/75 (96) 94 05/13/17 04:00 70 05/13/17 03:30 95 Nasal Cannula 6.00 05/13/17 01:30 97 50 05/13/17 00:00 66 05/13/17 00:00 98.1 66 18 135/73 (93) 96 05/13/17 00:00 96 Bi-Pap 50 05/12/17 22:50 95 50 05/12/17 20:00 74 05/12/17 20:00 98.8 74 16 129/69 (89) 96 05/12/17 20:00 96 Nasal Cannula 6.00 Bi-Pap 05/12/17 15:00 91 Nasal Cannula 6.00 Bi-Pap 05/12/17 15:00 92 05/12/17 15:00 99.2 92 22 146/82 (103) 91 Labs: Laboratory Tests Test 05/13/17 03:57 05/13/17 11:13 White Blood Count 11.0 TH/MM3 (4.0-11.0) Red Blood Count 4.62 MIL/MM3 (4.50-5.90) Hemoglobin 12.7 GM/DL (13.0-17.0) Hematocrit 39.1 % (39.0-51.0) Mean Corpuscular Volume 84.7 FL (80.0-100.0) Mean Corpuscular Hemoglobin 27.5 PG (27.0-34.0) Mean Corpuscular Hemoglobin Concent 32.5 % (32.0-36.0) Red Cell Distribution Width 14.4 % (11.6-17.2) Platelet Count 464 TH/MM3 (150-450) Mean Platelet Volume 8.9 FL (7.0-11.0) Blood Urea Nitrogen 25 MG/DL (7-18) Creatinine 0.99 MG/DL (0.60-1.30) Random Glucose 220 MG/DL (74-106) Total Protein 6.5 GM/DL (6.4-8.2) Albumin 1.8 GM/DL (3.4-5.0) Calcium Level 8.8 MG/DL (8.5-10.1) Magnesium Level 2.2 MG/DL (1.5-2.5) Alkaline Phosphatase 109 U/L (45-117) Aspartate Amino Transf (AST/SGOT) 24 U/L (15-37) Alanine Aminotransferase (ALT/SGPT) 30 U/L (12-78) Total Bilirubin 0.3 MG/DL (0.2-1.0) Sodium Level 142 MEQ/L (136-145) Potassium Level 3.9 MEQ/L (3.5-5.1) Chloride Level 103 MEQ/L (98-107) Carbon Dioxide Level 35.8 MEQ/L (21.0-32.0) Anion Gap 3 MEQ/L (5-15) Estimat Glomerular Filtration Rate 75 ML/MIN (>89) B-Type Natriuretic Peptide 1809 PG/ML (0-100) Result Diagram: 05/13/17 0357 05/13/17 1113 (1) Pressure ulcer Plan: wound care , ID and podiatry following (2) Acute myocardial infarction Plan: on ASA , statin , BB recommend maximizing medical therapy at this time possible SNF/ re-eval as outpt for surgery poor conditioning low FEV1 (3) Venous stasis ulcer (4) COPD (chronic obstructive pulmonary disease) Plan: nebs, pulm toileting (5) Coronary artery disease (6) CHF (congestive heart failure) Plan: on diuretics, EF 35% Problem Qualifiers (1) Pressure ulcer: (2) Acute myocardial infarction: Qualified Codes: I21.3 - ST elevation (STEMI) myocardial infarction of unspecified site (3) Venous stasis ulcer: Qualified Codes: I83.023 - Varicose veins of left lower extremity with ulcer of ankle; L97.321 - Non-pressure chronic ulcer of left ankle limited to breakdown of skin Teresa Peterson May 13, 2017 12:42
[2017-05-14] VITALS (18 sets, daily range): BP systolic 118–143; BP diastolic 61–76; PULSE 58–71; RESP 14–20; TEMP 97.9–98.3; O2SAT 94–99
[2017-05-14] MEDS: HEPARIN SODIUM - SQ 10,000 UNITS/ML VIAL SQ SCH ×3 (01:52→18:21)
[2017-05-14 05:29] LABS: HEMATOCRIT 37.9 % (39.0-51.0); MEAN CELL VOLUME 84.7 FL (80.0-100.0); MEAN CORPUSCULAR HEMOGLOBIN 27.9 PG (27.0-34.0); MEAN CORPUSCULAR HGB CONC 32.9 % (32.0-36.0); PLATELET COUNT 429 TH/MM3 (150-450); RED BLOOD COUNT 4.48 MIL/MM3 (4.50-5.90); RED CELL DISTRIBUTION WIDTH 14.1 % (11.6-17.2); REVIEW FLAG FINAL; WHITE BLOOD COUNT 11.2 TH/MM3 (4.0-11.0)
[2017-05-14] MEDS: RESP: ALBUTEROL 2.5 MG/IPRATROPIUM 0.5 MG NEB (PRN) NEB (05:43)
[2017-05-14 05:46] LABS: BICARBONATE 33.3 MEQ/L (21.0-32.0); POTASSIUM 3.8 MEQ/L (3.5-5.1)
[2017-05-14] MEDS: INSULIN ASPART SUPPLEMENTAL SCALE SQ SCH ×4 (08:00→22:10)
--- NOTE | 2017-05-14 08:10 | HHI.PR ---
Subjective Remarks Patient up in the chair this morning. On 5L NC. No chest pain. Neg fluid balance. Objective Vitals Vital Signs Date Time Temp Pulse Resp B/P (MAP) Pulse Ox O2 Delivery O2 Flow Rate FiO2 05/14/17 04:37 94 60 05/14/17 03:00 98 Bi-Pap 60 05/14/17 03:00 98.3 64 14 143/73 (96) 98 05/14/17 03:00 64 05/14/17 00:25 97 40 05/14/17 00:00 98 Bi-Pap 60 05/13/17 23:00 62 05/13/17 23:00 98.4 62 14 139/75 (96) 95 05/13/17 23:00 95 Nasal Cannula 6.00 05/13/17 20:05 95 Nasal Cannula 6.00 05/13/17 19:00 98.1 74 14 123/73 (90) 93 05/13/17 19:00 93 Nasal Cannula 6.00 05/13/17 19:00 74 05/13/17 16:47 96 Nasal Cannula 5.00 05/13/17 15:00 94 05/13/17 15:00 Nasal Cannula 5.00 05/13/17 15:00 99.2 94 14 131/71 (91) 93 05/13/17 11:00 97.9 63 15 135/75 (95) 97 05/13/17 11:00 63 05/13/17 11:00 Nasal Cannula 5.00 05/13/17 08:37 96 Nasal Cannula 6.00 I/O 05/13/17 05/13/17 05/13/17 05/14/17 05/14/17 05/14/17 07:00 15:00 23:00 07:00 15:00 23:00 Intake Total 502.5 ml 900 ml 720 ml Output Total 1150 ml 1350 ml 1750 ml Balance -647.5 ml -450 ml -1030 ml Intake Oral 240 ml 900 ml 720 ml IV Total 262.5 ml Output Urine Total 1150 ml 1350 ml 1750 ml # Bowel Movements 0 Result Diagram: 05/14/17 0346 05/14/17 0346 Objective Remarks GENERAL: Elderly male in no acute distress. CARDIOVASCULAR: Normal rate and regular rhythm without murmurs, gallops, or rubs. RESPIRATORY: Diminished breath sounds at the bases otherwise clear to auscultation bilaterally. GASTROINTESTINAL: Abdomen soft, non-tender, non-distended. Normal active bowel sounds MUSCULOSKELETAL: Left lateral ankle dressing is clean. Multiple wounds involving the right dorsal toes. Plantar surface is status post debridement by podiatry, dressing appear intact NEURO: Alert & Oriented x4 to person, place, time, situation. Moves all ext x4 PSYCH: Appropriate mood and affect. Procedures None A/P Assessment and Plan 71 Y/O male with multiple comorbid conditions including acute respiratory failure secondary to CHF and COPD. Patient had and NSTEMI, multivessel disease in need of CABG. He also presented with sepsis secondary to foot infection and osteomyelitis. Apparent PAD. Improving. CT surgery recommends maximal medical management prior to CABG. Timing of surgery to be determined based on his clinical course. Late this week vs DC to rehab and reschedule. Podiatry requested recs from ID on whether or not he can be treated with IV antibiotics for osteomyelitis for now as he is a high surgical risk given the need for CABG. he needs to be medically optimized, have CABG, then podiatry intervention if needed. Continue with diuresis. Acute respiratory failure suspect due to combination of pulmonary edema from acute systolic CHF, EF 30%. Patient also has COPD.: Improving. On Bipap at night. - BiPAP at night. NC. Responding to diuresis. - Continue Lasix 40 mg IV BID. - KCl 20 meq PO BID - cont BB and ACEi - follow BMP and urine output via tyson - Follow up CXR today. Sepsis due to Diabetic foot ulcer with infection and osteomyelitis, Left lower ext cellulitis, also has PAD - Patient met sepsis criteria with elevated white count of 18.5, tachycardia with heart rate of 94 and source of left leg cellulitis and open diabetic left ankle ulcer. - X ray of the left ankle is unremarkable. MRI shows abnormal marrow edema within the lateral malleolus concerning for osteomyelitis. - IV vancomycin per ID - blood cultures negative so far/ wound culture with MRSA and strep - podiatry following. S/P bedside debridement - ID following. Per ID, no absolute contraindication for surgery given the benefit of surgery outweigh the risks - s/p left lower extremity angiogram with balloon angioplasty in the left external iliac artery, and angioplasty and atherectomy in the posterior tibial and posterior tibial peritoneal trunk by Dr. casarez. doppler pulse AT/PT LLE. no stent placed due to ongoing infection and no clear target. Encephalopathy vs Delirium: Resolved - Likely delirium secondary to medical conditions above. NSTEMI - Cardiology following. Status post left heart catheterization with Dr. casarez showing 80% stenosis in the distal LAD, 99% occlusion of the left circumflex, diffusely diseased right coronary artery CT surgery following - continue ASA and statin, metoprolol, enalapril 20 mg PO BID. - Metoprolol 25mg BID. - echo with EF 35% - telemetry - Continue maximal medical management. CT surgery to determine timing of surgery. Hypertension - Continue Norvasc, enalapril and metoprolol - Monitor blood pressure and adjust treatment accordingly. Diabetes Mellitus. - Hemoglobin A1c 7.3%. - cont levemir to 5 units subq bid, continue sliding scale insulin with Aspart. COPD, 40 pack year tobacco history -Breathing treatment as needed. Hold off on steroid for now. he is moving air better. - Supplemental oxygen to keep sats>90% heparin for DVT prophylaxis Discharge Planning Transfer to stepdown unit today. Timing of surgery per CT surgery. Unclear if he will need to go to SNF prior to CABG vs surgery later this week. Follow functional status. Will need final ID recs for antibiotics on Discharge. Will need Podiatry follow up. Lesvia Dumont MD May 14, 2017 08:10
[2017-05-14] MEDS: ASPIRIN EC 81 MG TABEC PO SCH (08:30)
[2017-05-14] MEDS: ENALAPRIL MALEATE 10 MG TAB PO SCH ×2 (08:30→22:10)
[2017-05-14] MEDS: ATORVASTATIN 40 MG TAB PO SCH (08:31)
[2017-05-14] MEDS: METOPROLOL TARTRATE 25 MG TAB PO SCH ×2 (08:31→20:39)
[2017-05-14] MEDS: SODIUM CHLORIDE 0.9% FLUSH 10 ML FLUSH IV FLUSH SCH ×2 (08:32→20:39)
[2017-05-14] MEDS: INSULIN DETEMIR 100 UNITS/ML VIAL SQ SCH ×2 (08:32→20:40)
[2017-05-14] MEDS: COLLAGENASE OINT 30 GM TUBE TOPICAL SCH (08:32)
[2017-05-14] MEDS: FUROSEMIDE 40 MG/4 ML VIAL IV PUSH SCH ×2 (09:39→18:22)
--- NOTE | 2017-05-14 10:00 | PD.CAR.PN ---
CVT Progress Note Subjective/Hospital Course: 71/ male presented with complaint of worsening infection in his left ankle that he has had off and on for the last 3 weeks. He had a open wound on the outside aspect of the ankle. He has longstanding history of diabetes on insulin. He has also been complaining of some increased weakness and fatigue for the past 6 months. He said he had normally ambulated unassisted, was having more difficulty getting around due to the weakness and discomfort. Incidentally on admission he had EKG done which showed some ST elevation in lead II only, however, he did have some T-wave depression in the lateral leads, some poor R- wave progression, no prior EKG to compare. He then had a troponin elevated at 1.26. He was ruled in for non-STEMI. He was taken then to the labor supervisor by Dr. Melchor this morning which showed the LAD approximately 20% stenosis, moderate sized diagonal branches, 40% proximal stenosis, the LAD beyond the takeoff of the diagonal was 90% stenosed, the second diagonal branch had some luminal irregularities, the LAD distal had 80% lesion, left circ had a 99% subtotal occlusion and the right coronary artery had heavily calcified subtotal occlusion , ejection fraction approximately 35%. S/p left external iliac FIELD CONTRACTOR (good common femoral artery pulse) and s/p atherectomy/FIELD CONTRACTOR left posterior tibial artery. anterior tibial artery occluded. Doppler PT and AT. No vascular surgical options given poor runoff with small vessels (all distal disease). . We were consulted to evaluate for coronary artery bypass grafting. PAST MEDICAL HISTORY: Hypertension, Uncontrolled diabetes mellitus, COPD with ongoing tobacco use , severe PAD , Excision of melanoma from the face, chronic wound on his left ankle for about 3 weeks. left ankle wound MRSA group A Beta strep / on IV antibiotics carotid OK no DVT await PFT MRI cleft ankle concern for osteomyelitis 05/10 pt transfer to CVICU yesterday evening resp failure, hypoxemia, placed on Bipap PO2 66 on 60% fio2 / pt now on 6 liters / 91% fi02 was given lasix , also on scheduled diuretic , denied any chest pain , followed by ID agree that pt will need time to recover and continued IV antibiotics/ wound care would continue to maximize medical therapy and re-eval timing for surgery next week may need SNF / PT and return for CABG s/p left external iliac FIELD CONTRACTOR (good common femoral artery pulse) and s/p atherectomy/FIELD CONTRACTOR left posterior tibial artery. anterior tibial artery occluded. Doppler PT and AT. No vascular surgical options given poor runoff with small vessels (all distal disease). Likely will need time and IV antiobiotics +/- hyperbaric therapy. 05/13 pt still on Bipap at night now 5 liter nasal cannula BNP 1800, poor nutritional status with Albumin 1.8 FEV1 0.82/ podiatry following wounds on leg re-commend optimizing medical therapy for now PT/OT 05/14 remains on Bipap at night , now on 5 liters 02 up in chair, has alot of pain bearing weight on left foot left ankle wound / antibiotics / santly ointment ID following , may need ortho boot to facilitate ambulation re-eval timing for surgery with Dr Alfaro continue to maximize medical management, ok to transfer to stepdown Objective: GENERAL: SKIN: Warm and dry. HEAD: Normocephalic. EYES: No scleral icterus. No injection or drainage. NECK: Supple, trachea midline. No JVD or lymphadenopathy. CARDIOVASCULAR: Regular rate and rhythm without murmurs, gallops, or rubs. RESPIRATORY: Breath sounds equal bilaterally. No accessory muscle use. GASTROINTESTINAL: Abdomen soft, non-tender, nondistended. MUSCULOSKELETAL: No cyanosis, or edema. BACK: Nontender without obvious deformity. No CVA tenderness. ext: left lateral ankle eschar/ulcer and associated ankle cellulitis; Right dorsal PIPJ ulcers and left 5th lateral met head lesion. MRI left ankle no concern for septic arthritis however fibula with signal intensity changes suggestive of osteomyelitis Vascular intervention has been performed Would appreciate ID recommendations as to IV antibiotics for Vital Signs Date Time Temp Pulse Resp B/P (MAP) Pulse Ox O2 Delivery O2 Flow Rate FiO2 05/14/17 08:45 95 Nasal Cannula 5.00 05/14/17 04:37 94 60 05/14/17 03:00 98 Bi-Pap 60 05/14/17 03:00 98.3 64 14 143/73 (96) 98 05/14/17 03:00 64 05/14/17 00:25 97 40 05/14/17 00:00 98 Bi-Pap 60 05/13/17 23:00 62 05/13/17 23:00 98.4 62 14 139/75 (96) 95 05/13/17 23:00 95 Nasal Cannula 6.00 05/13/17 20:05 95 Nasal Cannula 6.00 05/13/17 19:00 98.1 74 14 123/73 (90) 93 05/13/17 19:00 93 Nasal Cannula 6.00 05/13/17 19:00 74 05/13/17 16:47 96 Nasal Cannula 5.00 05/13/17 15:00 94 05/13/17 15:00 Nasal Cannula 5.00 05/13/17 15:00 99.2 94 14 131/71 (91) 93 05/13/17 11:00 97.9 63 15 135/75 (95) 97 05/13/17 11:00 63 05/13/17 11:00 Nasal Cannula 5.00 Labs: Laboratory Tests Test 05/14/17 03:45 05/14/17 03:46 White Blood Count 11.2 TH/MM3 (4.0-11.0) Red Blood Count 4.48 MIL/MM3 (4.50-5.90) Hemoglobin 12.5 GM/DL (13.0-17.0) Hematocrit 37.9 % (39.0-51.0) Mean Corpuscular Volume 84.7 FL (80.0-100.0) Mean Corpuscular Hemoglobin 27.9 PG (27.0-34.0) Mean Corpuscular Hemoglobin Concent 32.9 % (32.0-36.0) Red Cell Distribution Width 14.1 % (11.6-17.2) Platelet Count 429 TH/MM3 (150-450) Mean Platelet Volume 9.4 FL (7.0-11.0) Blood Urea Nitrogen 29 MG/DL (7-18) Creatinine 1.05 MG/DL (0.60-1.30) Random Glucose 134 MG/DL (74-106) Calcium Level 8.8 MG/DL (8.5-10.1) Sodium Level 143 MEQ/L (136-145) Potassium Level 3.8 MEQ/L (3.5-5.1) Chloride Level 104 MEQ/L (98-107) Carbon Dioxide Level 33.3 MEQ/L (21.0-32.0) Anion Gap 6 MEQ/L (5-15) Estimat Glomerular Filtration Rate 70 ML/MIN (>89) Result Diagram: 05/14/17 0346 05/14/17345 Telemetry: NSR (1) Pressure ulcer Plan: wound care , ID and podiatry following fibular osteomyelitis (2) Acute myocardial infarction Plan: on ASA , statin , BB recommend maximizing medical therapy at this time possible SNF/ re-eval as outpt for surgery poor conditioning low FEV1 0.82 OT/PT (3) COPD (chronic obstructive pulmonary disease) Plan: nebs, pulm toileting (4) Coronary artery disease Plan: ASA, statin BB (5) CHF (congestive heart failure) Plan: on diuretics, EF 35% Problem Qualifiers (1) Pressure ulcer: (2) Acute myocardial infarction: Qualified Codes: I21.3 - ST elevation (STEMI) myocardial infarction of unspecified site Teresa Peterson May 14, 2017 10:00
--- NOTE | 2017-05-14 10:52 | RADRPT ---
EXAM DATE/TIME: 05/14/2017 09:36 [facility] COMPARISON: CHEST SINGLE AP, May 13, 2017, 9:12. INDICATIONS : Short of breath. MEDICAL HISTORY : Cardiovascular disease. Hypertension Chronic obstructive pulmonary disease. hyperthyroidism, diab etes SURGICAL HISTORY : left hand surgery ENCOUNTER: Initial ACUITY: 1 week PAIN SCORE: 0/10 LOCATION: Bilateral chest FINDINGS: A single view of the chest demonstrates some increased density left lung base possible pleural effusi on. Right lung is clear. The cardiomediastinal contours are unremarkable. Osseous structures are in tact. CONCLUSION: Left-sided pleural effusion otherwise unremarkable single view of the chest. Jonny May MD on May 14, 2017 at 10:49 Board Certified Radiologist. This report was verified electronically.
[2017-05-14] MEDS: VANCOMYCIN INJ 1,250 MG in SODIUM CHLOR 0.9% 250 ML INJ 250 ML IV SCH (11:35)
--- NOTE | 2017-05-14 17:34 | HHI.IDPN ---
Subjective Subjective Remarks pt is not going to have CABG Antibiotics vancomycin Past Medical History CAD PVD Allergies: Coded Allergies: acetaminophen (Verified Allergy, Severe, Tachycardia throat swelling, ) Patient given dose had SOB and Tachycardia that passed, previously got dose 12/9 AM without any reaction, 12/10 AM experienced the SOB and Tachycardia. i asked pt about tylenol allergy and he said he gets throat swelling. codeine (Unverified Allergy, Severe, Rash, 05/04/17) propoxyphene (Unverified Allergy, Severe, Nausea/Vomiting, 05/04/17) Objective . Vital Signs Date Time Temp Pulse Resp B/P (MAP) Pulse Ox O2 Delivery O2 Flow Rate FiO2 05/14/17 16:00 98.1 68 19 118/61 (80) 94 05/14/17 16:00 67 05/14/17 16:00 94 Nasal Cannula 5.00 Humidified 05/14/17 14:00 71 05/14/17 13:00 65 05/14/17 12:00 62 05/14/17 11:00 99 Nasal Cannula 5.00 Humidified 05/14/17 11:00 64 05/14/17 11:00 98.0 63 19 138/62 (87) 99 05/14/17 08:45 95 Nasal Cannula 5.00 05/14/17 07:00 98 Bi-Pap 60 05/14/17 07:00 63 05/14/17 07:00 97.9 67 17 140/76 (97) 98 05/14/17 04:37 94 60 05/14/17 03:00 98 Bi-Pap 60 05/14/17 03:00 98.3 64 14 143/73 (96) 98 05/14/17 03:00 64 05/14/17 00:25 97 40 05/14/17 00:00 98 Bi-Pap 60 05/13/17 23:00 62 05/13/17 23:00 98.4 62 14 139/75 (96) 95 05/13/17 23:00 95 Nasal Cannula 6.00 05/13/17 20:05 95 Nasal Cannula 6.00 05/13/17 19:00 98.1 74 14 123/73 (90) 93 05/13/17 19:00 93 Nasal Cannula 6.00 05/13/17 19:00 74 05/14/17 05/14/1705/15/17 15:00 23:00 07:00 Intake Total 250 ml Balance 250 ml IV Total 250 ml . Laboratory Tests Test 05/13/17 03:57 05/14/17 03:46 White Blood Count 11.0 TH/MM3 11.2 TH/MM3 Red Blood Count 4.62 MIL/MM3 4.48 MIL/MM3 Hemoglobin 12.7 GM/DL 12.5 GM/DL Hematocrit 39.1 % 37.9 % Mean Corpuscular Volume 84.7 FL 84.7 FL Mean Corpuscular Hemoglobin 27.5 PG 27.9 PG Mean Corpuscular Hemoglobin Concent 32.5 % 32.9 % Red Cell Distribution Width 14.4 % 14.1 % Platelet Count 464 TH/MM3 429 TH/MM3 Mean Platelet Volume 8.9 FL 9.4 FL Laboratory Tests Test 05/13/17 11:13 05/14/17 03:45 05/14/17 03:46 Blood Urea Nitrogen 25 MG/DL 29 MG/DL Creatinine 0.99 MG/DL 1.05 MG/DL Random Glucose 220 MG/DL 134 MG/DL Total Protein 6.5 GM/DL Albumin 1.8 GM/DL Calcium Level 8.8 MG/DL 8.8 MG/DL Magnesium Level 2.2 MG/DL Alkaline Phosphatase 109 U/L Aspartate Amino Transf (AST/SGOT) 24 U/L Alanine Aminotransferase (ALT/SGPT) 30 U/L Total Bilirubin 0.3 MG/DL Sodium Level 142 MEQ/L 143 MEQ/L Potassium Level 3.9 MEQ/L 3.8 MEQ/L Chloride Level 103 MEQ/L 104 MEQ/L Carbon Dioxide Level 35.8 MEQ/L 33.3 MEQ/L Anion Gap 3 MEQ/L 6 MEQ/L Estimat Glomerular Filtration Rate 75 ML/MIN 70 ML/MIN B-Type Natriuretic Peptide 1809 PG/ML 1746 PG/ML Imaging Last Impressions Chest X-Ray 05/14/17 0000 Signed Impressions: Service Date/Time: Sunday, May 14, 2017 09:36 - CONCLUSION: Left-sided pleural effusion otherwise unremarkable single view of the chest. Jonny May MD Lower Extremity Ultrasound 05/09/17 0000 Signed Impressions: Service Date/Time: April 17:40 - CONCLUSION: Normal examination. Theo Allen MD Carotid Artery Ultrasound 05/09/17 0000 Signed Impressions: Service Date/Time: April 18:07 - CONCLUSION: 1. Moderate calcified plaque around the carotid bifurcations bilaterally without evidence for hemodynamically significant stenosis. Theo Allen MD Ankle MRI 05/08/17 0000 Signed Impressions: Service Date/Time: Monday, May 08, 2017 09:48 - CONCLUSION: 1. Abnormal marrow edema within the lateral malleolus and subtle contrast enhancement. Findings are concerning for osteomyelitis. 2. Cellulitic changes in the soft tissues around the lateral aspect of the foot and ankle. Huseyin Muñoz MD Ankle X-Ray 05/04/17 0000 Signed Impressions: Service Date/Time: Thursday, May 04, 2017 15:27 - CONCLUSION: Mild degenerative type changes. Otherwise, unremarkable exam for patient's age. Lee Yao MD Physical Exam CONSTITUTIONAL/GENERAL: This is an adequately nourished patient, in no apparent distress. TUBES/LINES/DRAINS: SKIN: No jaundice, rashes, or lesions. Skin temperature appropriate. Not diaphoretic. CARDIOVASCULAR: Regular rate and rhythm without murmurs, gallops, or rubs. No JVD. Peripheral pulses symmetric. RESPIRATORY/CHEST: Symmetric, unlabored respirations. Clear to auscultation. Breath sounds equal bilaterally. No wheezes, rales, or rhonchi. GASTROINTESTINAL: Abdomen soft, non-tender, nondistended. No hepato-splenomegaly , or palpable masses. No guarding. Bowel sounds present. GENITOURINARY: Without palpable bladder distension. Wagoner catheter in place with clear yellow urine MUSCULOSKELETAL: Extremities without clubbing, cyanosis, or edema. No joint tenderness or effusion noted. No calf tenderness. No mottling or clubbing. Both feet w/o palpable pulses L ankle with erythema, mild to [place] edema and 3x 3 cm shallow ulceration on lateral maleleous covered with dry eschar R foot with hammer toes deformities and some dry eschars NEUROLOGICAL: Awake and alert. Motor and sensory grossly within normal limits. Follows commands. Clear speech . Moves all extremities. PSYCHIATRIC: No obvious anxiety/depression. no apparent hallucinations or other psychotic thought process. Assessment & Plan Remarks Severe 3 vessel CAD DFI, osteo L lateral malleleous, MRSA , GAS Is probably more PVD related problem, not a classical neuropathic uilcer - Clinically aparent PVD Leukocytosis - DFI infection, DC contributing - improving CHF , not PNA on CXR cont vancomycin anticipated duration of 6 weeks, but in case of PVD without improving vascular supply chances of cure is very low PVD work -up needed: low chance of cure for chronic osteo in the settings of compromised blood supply timing of surgery should be based on thre cardiac risk, if its urgent/ emergent issue the benefit definetely outweight the risk of possible infectin which is definetely elevated in a pt with active MRSA DFI There are no absolute ID contraindications to the surgery and waiting for resolution of DFI/osteo can put pt into high risk of further cardiac complications Sylvie Cox MD May 14, 2017 17:34
--- NOTE | 2017-05-14 20:31 | MB ---
cc: NIRALI CAMPOVERDE DATE OF CONSULTATION 05/14/17 REASON FOR CONSULTATION COPD. HISTORY OF PRESENT ILLNESS Mr. Torres is a 71-year-old male who was admitted with infection of his left foot and ankle found to be related to MRSA followed by infectious disease and treated for same. The patient was evaluated for possible myocardial infarction. He does indeed have severe coronary artery disease and coronary artery bypass graft surgery is planned. The patient is without acute distress. He states he is short of breath with exertion. He has smoked his entire adult life. PAST MEDICAL HISTORY 1. Hypertension 2. COPD, 3. 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 Peripheral vascular disease. FAMILY HISTORY Noncontributory. SOCIAL HISTORY He smokes a pack a day for over 50 years. Drinks alcohol socially. No TB or industrial exposure. REVIEW OF SYSTEMS 12-point review of systems as per HPI and past history otherwise negative. PHYSICAL EXAMINATION VITAL SIGNS: Oxygen saturation 95% on 5 liters oxygen nasal cannula. His temperature is 98.3, pulse 64, respirations 18, blood pressure 124/74. HEENT: Exam unremarkable. Eyes without icterus. NECK: Without adenopathy or thyroid enlargement. Central trachea. CHEST: Few scattered rhonchi bilaterally. CARDIAC: PMI distant. S1, S2 audible, no murmur, no rub. ABDOMEN: Lax, bowel sounds audible. EXTREMITIES: Left foot bandaged. LABORATORY DATA White count 11,000, hemoglobin 12, hematocrit 38 and platelets 429,000. Sodium 143, potassium 3.8, BUN 29, creatinine 1.0. IMPRESSION 1. COPD 2. Chronic tobacco use 3. Coronary artery disease 4. Coronary bypass graft surgery 5. Congestive heart failure. The patient seems stable from a COPD standpoint at present. He is in no distress. However, his baseline pulmonary function needs to be determined and the pulmonary function is indeed pending at this time. He does as well have a left pleural effusion which does not require drainage at this point, especially if coronary artery bypass surgery is planned. This will be draining anyway. We will check pulmonary function once undertaken. He did have arterial blood gases on May 10 which were quite adequate on oxygen therapy. However, he does not have evidence of hypoventilation. His pCO2 was at 41. I do thank you for asking me to partake in Mr. Torres's care. MD DANTE Spicer/ /7:15 PM /8:13 PM
[2017-05-15] VITALS (27 sets, daily range): BP systolic 126–140; BP diastolic 61–67; PULSE 58–88; RESP 18–20; TEMP 98–98.9; O2SAT 94–98
[2017-05-15] MEDS: HEPARIN SODIUM - SQ 10,000 UNITS/ML VIAL SQ SCH ×3 (00:15→17:17)
[2017-05-15] MEDS ORDERED: PHARMACY ORDERED LAB ONE (05:45)
[2017-05-15 06:50] LABS: HEMATOCRIT 35.6 % (39.0-51.0); MEAN CELL VOLUME 83.7 FL (80.0-100.0); MEAN CORPUSCULAR HEMOGLOBIN 28.4 PG (27.0-34.0); MEAN CORPUSCULAR HGB CONC 33.9 % (32.0-36.0); PLATELET COUNT 363 TH/MM3 (150-450); RED BLOOD COUNT 4.25 MIL/MM3 (4.50-5.90); RED CELL DISTRIBUTION WIDTH 14.2 % (11.6-17.2); REVIEW FLAG FINAL; WHITE BLOOD COUNT 10.2 TH/MM3 (4.0-11.0)
[2017-05-15] MEDS: VANCOMYCIN INJ 1,250 MG in SODIUM CHLOR 0.9% 250 ML INJ 250 ML IV SCH (07:10)
[2017-05-15 07:14] LABS: BICARBONATE 31.7 MEQ/L (21.0-32.0); POTASSIUM 3.3 MEQ/L (3.5-5.1)
[2017-05-15] MEDS: INSULIN ASPART SUPPLEMENTAL SCALE SQ SCH ×4 (08:00→21:00)
--- NOTE | 2017-05-15 08:46 | HHI.PR ---
Subjective Remarks The patient was resting comfortably in bed. He said that he needed to use the bathroom. He had no acute complaints at this time. Discussed with nursing who recommended removal of Wagoner catheter. Objective Vitals Vital Signs Date Time Temp Pulse Resp B/P (MAP) Pulse Ox O2 Delivery O2 Flow Rate FiO2 05/15/17 08:11 95 Nasal Cannula 4.00 05/15/17 08:11 98.2 65 18 140/67 (91) 95 05/15/17 06:00 60 05/15/17 05:03 61 05/15/17 04:28 97 50 05/15/17 04:00 59 05/15/17 04:00 98.0 59 20 133/64 (87) 94 05/15/17 03:41 96 Nasal Cannula Humidified 05/15/17 03:00 62 05/15/17 02:00 61 05/15/17 01:48 94 50 05/15/17 01:00 58 05/15/17 00:13 98.2 61 20 127/66 (86) 97 05/15/17 00:00 96 Nasal Cannula Humidified 05/15/17 00:00 58 05/14/17 23:00 58 05/14/17 22:00 62 05/14/17 21:23 97 60 05/14/17 21:23 94 Nasal Cannula 5.00 05/14/17 21:00 68 05/14/17 20:00 98.3 68 20 130/64 (86) 96 05/14/17 20:00 68 05/14/17 20:00 95 Nasal Cannula 5.00 Humidified 05/14/17 19:00 70 05/14/17 18:00 71 05/14/17 17:00 67 05/14/17 16:00 98.1 68 19 118/61 (80) 94 05/14/17 16:00 67 05/14/17 16:00 94 Nasal Cannula 5.00 Humidified 05/14/17 14:00 71 05/14/17 13:00 65 05/14/17 12:00 62 05/14/17 11:00 99 Nasal Cannula 5.00 Humidified 05/14/17 11:00 64 05/14/17 11:00 98.0 63 19 138/62 (87) 99 I/O 05/14/17 05/14/17 05/14/17 05/15/17 12/20/17 12/20/17 06:59 14:59 22:59 06:59 14:59 22:59 Intake Total 720 ml 970 ml 240 ml Output Total 1750 ml 1150 ml 2200 ml Balance -1030 ml -180 ml -1960 ml Intake Oral 720 ml 720 ml 240 ml IV Total 250 ml Output Urine Total 1750 ml 1150 ml 2200 ml # Bowel Movements 2 Result Diagram: 05/15/17 0612 05/15/17 0612 Imaging Last Impressions Chest X-Ray 05/14/17 0000 Signed Impressions: Service Date/Time: Sunday, May 14, 2017 09:36 - CONCLUSION: Left-sided pleural effusion otherwise unremarkable single view of the chest. Jonny May MD Lower Extremity Ultrasound 05/09/17 0000 Signed Impressions: Service Date/Time: April 17:40 - CONCLUSION: Normal examination. Theo Allen MD Carotid Artery Ultrasound 05/09/17 0000 Signed Impressions: Service Date/Time: April 18:07 - CONCLUSION: 1. Moderate calcified plaque around the carotid bifurcations bilaterally without evidence for hemodynamically significant stenosis. Theo Allen MD Ankle MRI 05/08/17 0000 Signed Impressions: Service Date/Time: Monday, May 08, 2017 09:48 - CONCLUSION: 1. Abnormal marrow edema within the lateral malleolus and subtle contrast enhancement. Findings are concerning for osteomyelitis. 2. Cellulitic changes in the soft tissues around the lateral aspect of the foot and ankle. Huseyin Muñoz MD Ankle X-Ray 05/04/17 0000 Signed Impressions: Service Date/Time: Thursday, May 04, 2017 15:27 - CONCLUSION: Mild degenerative type changes. Otherwise, unremarkable exam for patient's age. Lee Yao MD Objective Remarks GENERAL: Elderly male in no acute distress. HEENT: NC, AT. CARDIOVASCULAR: Normal rate and regular rhythm without murmurs, gallops, or rubs. RESPIRATORY: Diminished breath sounds at the bases otherwise clear to auscultation bilaterally. GASTROINTESTINAL: Abdomen soft, non-tender, non-distended. Normal active bowel sounds. MUSCULOSKELETAL: Left lateral ankle dressing is clean. Multiple wounds involving the right dorsal toes. Plantar surface is status post debridement by podiatry, dressing appears intact. NEURO: Alert & Oriented x4 to person, place, time, situation. Moves all ext x4 PSYCH: Appropriate mood and affect. Procedures None Medications and IVs Current Medications Medications (Trade) Dose Ordered Sig/Tatyana Route Start Time Stop Time Status Last Admin (NS Flush) 2 ml UNSCH PRN IV FLUSH 05/04/17 08:15 05/05/17 17:26 (NS Flush) 2 ml BID IV FLUSH 05/04/17 09:00 05/15/17 09:16 (Tylenol) 650 mg Q4H PRN PO 05/04/17 08:15 05/05/17 03:15 (Zofran Inj) 4 mg Q6H PRN IVP 05/04/17 08:15 (Narcan Inj) 0.4 mg UNSCH PRN IV PUSH 05/04/17 08:15 (Milk Of Magnesia Liq) 30 ml Q12H PRN PO 05/04/17 08:15 (Senokot) 17.2 mg Q12H PRN PO 05/04/17 08:15 (Dulcolax Supp) 10 mg DAILY PRN RECTAL 05/04/17 08:15 (Lactulose Liq) 30 ml DAILY PRN PO 05/04/17 08:15 (Morphine Inj) 2 mg Q3H PRN IV PUSH 05/04/17 08:15 (Ecotrin Ec) 81 mg DAILY PO 05/04/17 09:00 05/15/17 09:16 (Nitrostat Sl) 0.4 mg Q5M PRN SL 05/04/17 08:15 (D50w (Vial) Inj) 50 ml UNSCH PRN IV PUSH 05/04/17 08:15 (Glucagon Inj) 1 mg UNSCH PRN OTHER 05/04/17 08:15 (NovoLOG SUPPLEMENTAL SCALE) 1 ACHS SLIDING SCALE SQ 05/04/17 12:00 05/14/17 22:10 Pharmacy Profile Note 0 ml @ 0 mls/hr UNSCH OTHER 05/04/17 15:15 (Vasotec) 20 mg BID PO 05/04/17 21:00 05/15/17 09:18 (Lipitor) 40 mg DAILY PO 05/05/17 09:00 05/15/17 09:18 (Duoneb Neb) 1 ampule Q4HR NEB PRN NEB 05/05/17 09:00 05/14/17 05:43 (Ultram) 50 mg Q8H PRN PO 05/05/17 09:00 (Lopressor) 25 mg Q12HR PO 05/05/17 21:00 05/15/17 09:18 (Santyl Oint) 1 applic DAILY TOPICAL 05/07/17 09:00 05/15/17 09:19 (Atropine Inj) 0.5 mg UNSCH PRN IV PUSH 05/09/17 10:30 (fentaNYL INJ) 25 mcg Q30M PRN IV PUSH 05/09/17 10:30 Vancomycin HCl 1250 mg/Sodium Chloride 262.5 ml @ 250 mls/hr Q18H IV 05/10/17 00:00 05/15/17 07:10 (Levemir Inj) 8 units Q12HR SQ 05/11/17 09:00 05/15/17 09:19 (Heparin Inj) 5,000 units Q8H SQ 05/11/17 09:00 05/15/17 09:21 (Lasix Inj) 40 mg BID@0900,1800 IV PUSH 05/14/17 09:00 05/14/17 18:22 (K-Lyte Cl Eff) 50 meq ONCE ONCE PO 05/15/17 11:15 05/15/17 11:16 UNV A/P Assessment and Plan 71 Y/O male with multiple comorbid conditions including acute respiratory failure secondary to CHF and COPD. Patient had an NSTEMI, multivessel disease in need of CABG. He also presented with sepsis secondary to foot infection and osteomyelitis. Apparent PAD. Improving. CT surgery recommends maximal medical management prior to CABG. Timing of surgery to be determined based on his clinical course. Late this week vs DC to rehab and reschedule. Podiatry requested recs from ID on whether or not he can be treated with IV antibiotics for osteomyelitis for now as he is a high surgical risk given the need for CABG. He needs to be medically optimized, have CABG, then podiatry intervention if needed. Continue with diuresis. Acute respiratory failure suspect due to combination of pulmonary edema from acute systolic CHF, EF 30%. Patient also has COPD.: Improving. On Bipap at night. - BiPAP at night. NC. Responding to diuresis. - Continue Lasix 40 mg IV BID. - KCl as needed - cont BB and ACEi - follow Is and Os - nebs as needed. - IS Sepsis due to Diabetic foot ulcer with infection and osteomyelitis, Left lower ext cellulitis, also has PAD - Patient met sepsis criteria with elevated white count of 18.5, tachycardia with heart rate of 94 and source of left leg cellulitis and open diabetic left ankle ulcer. - X ray of the left ankle is unremarkable. MRI shows abnormal marrow edema within the lateral malleolus concerning for osteomyelitis. - IV vancomycin per ID - blood cultures negative so far/ wound culture with MRSA and strep - podiatry following. S/P bedside debridement - ID following. Per ID, no absolute contraindication for surgery given the benefit of surgery outweigh the risks - s/p left lower extremity angiogram with balloon angioplasty in the left external iliac artery, and angioplasty and atherectomy in the posterior tibial and posterior tibial peritoneal trunk by Dr. casarez. doppler pulse AT/PT LLE. no stent placed due to ongoing infection and no clear target. Encephalopathy vs Delirium: Resolved - Likely delirium secondary to medical conditions above. NSTEMI - Cardiology following. Status post left heart catheterization with Dr. casarez showing 80% stenosis in the distal LAD, 99% occlusion of the left circumflex, diffusely diseased right coronary artery. CT surgery following - continue ASA and statin, metoprolol, enalapril 20 mg PO BID. - echo with EF 35% - telemetry - Continue maximal medical management. CT surgery to determine timing of surgery. Hypertension - Continue Norvasc, enalapril and metoprolol - Monitor blood pressure and adjust treatment accordingly. Diabetes Mellitus. - Hemoglobin A1c 7.3%. - cont Levemir to 5 units subq bid, continue sliding scale insulin with Aspart. COPD, 40 pack year tobacco history -Breathing treatment as needed. Hold off on steroid for now. he is moving air better. - Supplemental oxygen to keep sats>90% heparin for DVT prophylaxis Discharge Planning Timing of surgery per CT surgery. Unclear if he will need to go to SNF prior to CABG vs surgery later this week. Follow functional status. Will need final ID recs for antibiotics on Discharge. Will need Podiatry follow up. Alexx Sharp DO May 15, 2017 08:46
[2017-05-15] MEDS: ASPIRIN EC 81 MG TABEC PO SCH (09:16)
[2017-05-15] MEDS: SODIUM CHLORIDE 0.9% FLUSH 10 ML FLUSH IV FLUSH SCH ×2 (09:16→20:32)
[2017-05-15] MEDS: ENALAPRIL MALEATE 10 MG TAB PO SCH ×2 (09:18→20:32)
[2017-05-15] MEDS: ATORVASTATIN 40 MG TAB PO SCH (09:18)
[2017-05-15] MEDS: METOPROLOL TARTRATE 25 MG TAB PO SCH ×2 (09:18→20:32)
[2017-05-15] MEDS: COLLAGENASE OINT 30 GM TUBE TOPICAL SCH (09:19)
[2017-05-15] MEDS: INSULIN DETEMIR 100 UNITS/ML VIAL SQ SCH ×2 (09:19→20:33)
[2017-05-15] MEDS: FUROSEMIDE 40 MG/4 ML VIAL IV PUSH SCH ×2 (10:00→17:23)
[2017-05-15] MEDS ORDERED: POTASSIUM CHLORIDE 25 MEQ EFFERVESCENT TAB PO ONE (11:30)
[2017-05-15] MEDS ORDERED: ATROPINE SULFATE 1 MG/10 ML SYRINGE ONE (14:18)
[2017-05-15] MEDS ORDERED: EPINEPHrine HCL (1:10,000) 1 MG/10 ML SYRINGE ONE (14:18)
[2017-05-15] MEDS ORDERED: LIDOCAINE HCL 2% 100 MG/5 ML SYRINGE ONE (14:18)
--- NOTE | 2017-05-15 15:37 | PD.CAR.PN ---
CVT Progress Note Subjective/Hospital Course: 71/ male presented with complaint of worsening infection in his left ankle that he has had off and on for the last 3 weeks. He had a open wound on the outside aspect of the ankle. He has longstanding history of diabetes on insulin. He has also been complaining of some increased weakness and fatigue for the past 6 months. He said he had normally ambulated unassisted, was having more difficulty getting around due to the weakness and discomfort. Incidentally on admission he had EKG done which showed some ST elevation in lead II only, however, he did have some T-wave depression in the lateral leads, some poor R- wave progression, no prior EKG to compare. He then had a troponin elevated at 1.26. He was ruled in for non-STEMI. He was taken then to the home performance laborer by Dr. Melchor this morning which showed the LAD approximately 20% stenosis, moderate sized diagonal branches, 40% proximal stenosis, the LAD beyond the takeoff of the diagonal was 90% stenosed, the second diagonal branch had some luminal irregularities, the LAD distal had 80% lesion, left circ had a 99% subtotal occlusion and the right coronary artery had heavily calcified subtotal occlusion , ejection fraction approximately 35%. S/p left external iliac BENCH TECHNICIAN (good common femoral artery pulse) and s/p atherectomy/BENCH TECHNICIAN left posterior tibial artery. anterior tibial artery occluded. Doppler PT and AT. No vascular surgical options given poor runoff with small vessels (all distal disease). . We were consulted to evaluate for coronary artery bypass grafting. PAST MEDICAL HISTORY: Hypertension, Uncontrolled diabetes mellitus, COPD with ongoing tobacco use , severe PAD , Excision of melanoma from the face, chronic wound on his left ankle for about 3 weeks. left ankle wound MRSA group A Beta strep / on IV antibiotics carotid OK no DVT await PFT MRI cleft ankle concern for osteomyelitis 05/10 pt transfer to CVICU yesterday evening resp failure, hypoxemia, placed on Bipap PO2 66 on 60% fio2 / pt now on 6 liters / 91% fi02 was given lasix , also on scheduled diuretic , denied any chest pain , followed by ID agree that pt will need time to recover and continued IV antibiotics/ wound care would continue to maximize medical therapy and re-eval timing for surgery next week may need SNF / PT and return for CABG s/p left external iliac BENCH TECHNICIAN (good common femoral artery pulse) and s/p atherectomy/BENCH TECHNICIAN left posterior tibial artery. anterior tibial artery occluded. Doppler PT and AT. No vascular surgical options given poor runoff with small vessels (all distal disease). Likely will need time and IV antiobiotics +/- hyperbaric therapy. 05/13 pt still on Bipap at night now 5 liter nasal cannula BNP 1800, poor nutritional status with Albumin 1.8 FEV1 0.82/ podiatry following wounds on leg re-commend optimizing medical therapy for now PT/OT 05/14 remains on Bipap at night , now on 5 liters 02 up in chair, has alot of pain bearing weight on left foot left ankle wound / antibiotics / santly ointment ID following , may need ortho boot to facilitate ambulation re-eval timing for surgery with Dr Alfaro continue to maximize medical management, ok to transfer to stepdown 05/15 pulmonary consult noted re-eval FEV1 in am now on 4 liters, , ID note noted , still has difficulty with mobility , but improving will make final decision on timing PFT in am Objective: GENERAL: A&O SKIN: Warm and dry. dressing to both ankles HEAD: Normocephalic. EYES: No scleral icterus. No injection or drainage. NECK: Supple, trachea midline. No JVD or lymphadenopathy. CARDIOVASCULAR: Regular rate and rhythm without murmurs, gallops, or rubs. RESPIRATORY: Breath sounds equal bilaterally. No accessory muscle use. coarse bilateral breath sounds , few basiliar crackles GASTROINTESTINAL: Abdomen soft, non-tender, nondistended. MUSCULOSKELETAL: No cyanosis, or edema. BACK: Nontender without obvious deformity. No CVA tenderness. Vital Signs Date Time Temp Pulse Resp B/P (MAP) Pulse Ox O2 Delivery O2 Flow Rate FiO2 05/15/17 15:21 98.4 67 18 126/61 (82) 97 05/15/17 15:21 96 Nasal Cannula 4.00 05/15/17 13:00 66 05/15/17 12:00 62 05/15/17 11:40 Nasal Cannula 4.00 05/15/17 11:40 98.9 65 18 138/66 (90) 98 05/15/17 11:00 62 05/15/17 10:00 72 05/15/17 09:00 95 Nasal Cannula 4.00 05/15/17 09:00 88 05/15/17 08:11 95 Nasal Cannula 4.00 05/15/17 08:11 98.2 65 18 140/67 (91) 95 05/15/17 08:00 58 05/15/17 07:00 61 05/15/17 06:00 60 05/15/17 05:03 61 05/15/17 04:28 97 50 05/15/17 04:00 59 05/15/17 04:00 98.0 59 20 133/64 (87) 94 05/15/17 03:41 96 Nasal Cannula Humidified 05/15/17 03:00 62 05/15/17 02:00 61 05/15/17 01:48 94 50 05/15/17 01:00 58 05/15/17 00:13 98.2 61 20 127/66 (86) 97 05/15/17 00:00 96 Nasal Cannula Humidified 05/15/17 00:00 58 05/14/17 23:00 58 05/14/17 22:00 62 05/14/17 21:23 97 60 05/14/17 21:23 94 Nasal Cannula 5.00 05/14/17 21:00 68 05/14/17 20:00 98.3 68 20 130/64 (86) 96 05/14/17 20:00 68 05/14/17 20:00 95 Nasal Cannula 5.00 Humidified 05/14/17 19:00 70 05/14/17 18:00 71 05/14/17 17:00 67 05/14/17 16:00 98.1 68 19 118/61 (80) 94 05/14/17 16:00 67 05/14/17 16:00 94 Nasal Cannula 5.00 Humidified Labs: Laboratory Tests Test 05/15/17 06:12 White Blood Count 10.2 TH/MM3 (4.0-11.0) Red Blood Count 4.25 MIL/MM3 (4.50-5.90) Hemoglobin 12.1 GM/DL (13.0-17.0) Hematocrit 35.6 % (39.0-51.0) Mean Corpuscular Volume 83.7 FL (80.0-100.0) Mean Corpuscular Hemoglobin 28.4 PG (27.0-34.0) Mean Corpuscular Hemoglobin Concent 33.9 % (32.0-36.0) Red Cell Distribution Width 14.2 % (11.6-17.2) Platelet Count 363 TH/MM3 (150-450) Mean Platelet Volume 9.3 FL (7.0-11.0) Blood Urea Nitrogen 29 MG/DL (7-18) Creatinine 0.91 MG/DL (0.60-1.30) Random Glucose 111 MG/DL (74-106) Calcium Level 8.6 MG/DL (8.5-10.1) Sodium Level 142 MEQ/L (136-145) Potassium Level 3.3 MEQ/L (3.5-5.1) Chloride Level 104 MEQ/L (98-107) Carbon Dioxide Level 31.7 MEQ/L (21.0-32.0) Anion Gap 6 MEQ/L (5-15) Estimat Glomerular Filtration Rate 83 ML/MIN (>89) Vancomycin Level Trough 20.7 MCG/ML (5.0-10.0) Result Diagram: 05/15/1761105/15/17611 (1) Pressure ulcer Plan: wound care , ID and podiatry following fibular osteomyelitis (2) Acute myocardial infarction Plan: on ASA , statin , BB recommend maximizing medical therapy at this time possible SNF/ re-eval as outpt for surgery poor conditioning low FEV1 0.82 / repeat FEV1 in am OT/PT (3) COPD (chronic obstructive pulmonary disease) Plan: nebs, pulm toileting (4) Coronary artery disease Plan: ASA, statin BB (5) CHF (congestive heart failure) Plan: on diuretics, EF 35% Problem Qualifiers (1) Pressure ulcer: (2) Acute myocardial infarction: Qualified Codes: I21.3 - ST elevation (STEMI) myocardial infarction of unspecified site Teresa Peterson May 15, 2017 15:37
--- NOTE | 2017-05-15 17:02 | RADRPT ---
EXAM DATE/TIME: 05/15/2017 14:28 [facility] COMPARISON: CHEST SINGLE AP, May 14, 2017, 9:36. INDICATIONS : Pre operative CABG. RADIATION DOSE: 8.84 CTDIvol (mGy) MEDICAL HISTORY : Hypertension. Chronic obstructive pulmonary disease. Diabetes mellitus type 2. Skin cancer. SURGICAL HISTORY : None. ENCOUNTER: Initial ACUITY: 1 day PAIN SCALE: 2/10 LOCATION: Bilateral chest TECHNIQUE: Volumetric scanning of the chest was performed. Using automated exposure control and adjustment of t he mA and/or kV according to patient size, radiation dose was kept as low as reasonably achievable to obtain optimal diagnostic quality images. DICOM format image data is available electronically for r eview and comparison. Follow-up recommendations for detected pulmonary nodules are based at a minimum on nodule size and pa tient risk factors according to Fleischner Society Guidelines. FINDINGS: LUNGS: Airspace consolidation in the lower lobes bilaterally, presumably compressive atelectasis. PLEURAE: Moderate simple appearing bilateral pleural effusions. MEDIASTINUM: Prominent coronary artery calcifications. Trace anterior pericardial effusion. No significant mediast inal adenopathy. AXILLAE: Within normal limits. No lymphadenopathy. MUSCULOSKELETAL: Within normal limits for patient age. MISCELLANEOUS: Numerous gallstones in the gallbladder which otherwise appears unremarkable by CT. CONCLUSION: 1. Moderate simple appearing bilateral pleural effusions with presumably compressive atelectasis in t he lower lobes bilaterally. 2. Dense coronary artery cavitations. 3. Very trace anterior pericardial effusion. 4. Cholelithiasis. Alexander Posada MD on May 15, 2017 at 16:57 Board Certified Radiologist. This report was verified electronically.
--- NOTE | 2017-05-15 19:40 | HHI.PR ---
Subjective Remarks RESPIRATORY FAILURE COPD CHF CAD ALERT NO DISTRESS Objective Vital Signs Date Time Temp Pulse Resp B/P (MAP) Pulse Ox O2 Delivery O2 Flow Rate FiO2 05/15/17 18:25 74 05/15/17 17:05 71 05/15/17 16:00 68 05/15/17 15:21 98.4 67 18 126/61 (82) 97 05/15/17 15:21 96 Nasal Cannula 4.00 05/15/17 15:00 66 05/15/17 14:00 66 05/15/17 13:00 66 05/15/17 12:00 62 05/15/17 11:40 Nasal Cannula 4.00 05/15/17 11:40 98.9 65 18 138/66 (90) 98 05/15/17 11:00 62 05/15/17 10:00 72 05/15/17 09:00 95 Nasal Cannula 4.00 05/15/17 09:00 88 05/15/17 08:11 95 Nasal Cannula 4.00 05/15/17 08:11 98.2 65 18 140/67 (91) 95 05/15/17 08:00 58 05/15/17 07:00 61 05/15/17 06:00 60 05/15/17 05:03 61 05/15/17 04:28 97 50 05/15/17 04:00 59 05/15/17 04:00 98.0 59 20 133/64 (87) 94 05/15/17 03:41 96 Nasal Cannula Humidified 05/15/17 03:00 62 05/15/17 02:00 61 05/15/17 01:48 94 50 05/15/17 01:00 58 05/15/17 00:13 98.2 61 20 127/66 (86) 97 05/15/17 00:00 96 Nasal Cannula Humidified 05/15/17 00:00 58 05/14/17 23:00 58 05/14/17 22:00 62 05/14/17 21:23 97 60 05/14/17 21:23 94 Nasal Cannula 5.00 05/14/17 21:00 68 05/14/17 20:00 98.3 68 20 130/64 (86) 96 05/14/17 20:00 68 05/14/17 20:00 95 Nasal Cannula 5.00 Humidified I/O 05/14/17 05/14/17 05/14/17 05/15/17 05/15/17 05/15/17 07:00 15:00 23:00 07:00 15:00 23:00 Intake Total 720 ml 970 ml 240 ml 260 ml 1010 ml Output Total 1750 ml 1150 ml 2200 ml 1200 ml Balance -1030 ml -180 ml -1960 ml 260 ml -190 ml Intake Oral 720 ml 720 ml 240 ml 1010 ml IV Total 250 ml 260 ml Output Urine Total 1750 ml 1150 ml 2200 ml 1200 ml # Voids 3 # Bowel Movements 2 Result Diagram: 05/15/1761105/15/17 06 Procedures Bedside full-thickness excisional debridement of right sub met 5 ulcer to subcutaneous tissue with 10 blade Objective Remarks GENERAL: SKIN: Warm and dry. HEAD: Atraumatic. Normocephalic. EYES: Pupils equal and round. No scleral icterus. No injection or drainage. ENT: No nasal bleeding or discharge. Mucous membranes pink and moist. NECK: Trachea midline. No JVD. CARDIOVASCULAR: Regular rate and rhythm. RESPIRATORY: No accessory muscle use. RHONCHI AT BASIS. GASTROINTESTINAL: Abdomen soft, non-tender, nondistended. Hepatic and splenic margins not palpable. MUSCULOSKELETAL: Extremities without clubbing, cyanosis, or edema. No obvious deformities. NEUROLOGICAL: Awake and alert. No obvious cranial nerve deficits. Motor grossly within normal limits. Five out of 5 muscle strength in the arms and legs. Normal speech. PSYCHIATRIC: Appropriate mood and affect; insight and judgment normal. Assessment and Plan Assessment and Plan RESPIRATORY FAILURE COPD CHF CAD PLAN O2 BRONCHODILATOR THERAPY INCREASE ACTIVITY Li Jefferson MD May 15, 2017 19:40
--- NOTE | 2017-05-15 19:47 | PD.VS.CON ---
History of Present Illness Chief Complaint: L lateral malleolar wound Consult Requested by: Medical service History of Present Illness 71 yo male admitted with AMI who has a L lateral malleolar wound present for several weeks. Said he ambulated today and overall feels well. No SOB or CP. Past/Family/Social History Past Medical History DM HTN CAD COPD Past Surgical History melanoma excision Social History ex smoker Family History NC Home Medications Reported Medications Tizanidine (Tizanidine) 4 Mg Cap, 4 MG PO HS, CAP 0 Refills 05/04/17 Glipizide (Glipizide) 5 Mg Tab, 2.5 MG PO BIDAC for Blood Sugar Management, #60 TAB 0 Refills Take 30 minutes before a meal 05/04/17 Tramadol (Tramadol) 50 Mg Tab, 50 MG PO BID Y for PAIN, TAB 0 Refills 05/04/17 Hydrochlorothiazide (Hydrochlorothiazide) 25 Mg Tab, 25 MG PO DAILY, #30 TAB 0 Refills 05/04/17 Amlodipine (Amlodipine) 10 Mg Tab, 10 MG PO DAILY for Blood Pressure Management , #30 TAB 0 Refills 05/04/17 Insulin Human Isophane-Regular 70-30 Inj (Novolin 70-30 Inj) 1,000 Unit/10 Ml Vial, 30 UNITS SQ BID for Blood Sugar Management, ML 0 Refills 05/04/17 Enalapril (Enalapril) 20 Mg Tab, 20 MG PO BID, #30 TAB 0 Refills 05/04/17 Metformin (Metformin) 1,000 Mg Tab, 1000 MG PO BIDPC for Blood Sugar Management , #60 TAB 0 Refills 05/04/17 Coded Allergies: acetaminophen (Verified Allergy, Severe, Tachycardia throat swelling, ) Patient given dose had SOB and Tachycardia that passed, previously got dose 12/9 AM without any reaction, 12/10 AM experienced the SOB and Tachycardia. i asked pt about tylenol allergy and he said he gets throat swelling. codeine (Unverified Allergy, Severe, Rash, 05/04/17) propoxyphene (Unverified Allergy, Severe, Nausea/Vomiting, 05/04/17) Review of Systems Constitutional: DENIES: Fever, Chills Respiratory: COMPLAINS OF: Cough Cardiovascular: COMPLAINS OF: Chest pain, Dyspnea on Exertion Physical Exam Vitals/I&O Date Time Temp Pulse Resp B/P (MAP) Pulse Ox O2 Delivery O2 Flow Rate FiO2 05/15/17 18:25 74 05/15/17 17:05 71 05/15/17 16:00 68 05/15/17 15:21 98.4 67 18 126/61 (82) 97 05/15/17 15:21 96 Nasal Cannula 4.00 05/15/17 15:00 66 05/15/17 14:00 66 05/15/17 13:00 66 05/15/17 12:00 62 05/15/17 11:40 Nasal Cannula 4.00 05/15/17 11:40 98.9 65 18 138/66 (90) 98 05/15/17 11:00 62 05/15/17 10:00 72 05/15/17 09:00 95 Nasal Cannula 4.00 05/15/17 09:00 88 05/15/17 08:11 95 Nasal Cannula 4.00 05/15/17 08:11 98.2 65 18 140/67 (91) 95 05/15/17 08:00 58 05/15/17 07:00 61 05/15/17 06:00 60 05/15/17 05:03 61 05/15/17 04:28 97 50 05/15/17 04:00 59 05/15/17 04:00 98.0 59 20 133/64 (87) 94 05/15/17 03:41 96 Nasal Cannula Humidified 05/15/17 03:00 62 05/15/17 02:00 61 05/15/17 01:48 94 50 05/15/17 01:00 58 05/15/17 00:13 98.2 61 20 127/66 (86) 97 05/15/17 00:00 96 Nasal Cannula Humidified 05/15/17 00:00 58 05/14/17 23:00 58 05/14/17 22:00 62 05/14/17 21:23 97 60 05/14/17 21:23 94 Nasal Cannula 5.00 05/14/17 21:00 68 05/14/17 20:00 98.3 68 20 130/64 (86) 96 05/14/17 20:00 68 05/14/17 20:00 95 Nasal Cannula 5.00 Humidified 05/15/17 05/15/17 05/15/17 07:00 15:00 23:00 Intake Total 240 ml 260 ml 1010 ml Output Total 2200 ml 1200 ml Balance -1960 ml 260 ml -190 ml Neuro: alert, oriented HEENT: NC/AT Neck: no JVD; trachea midline Heart: reg rate Lungs: coarse B Vascular: palpable femoral and popliteal pulse Extremities: L lateral malleolar ulcer, minimal surrounding erythema, no odor or drainage Laboratory Tests Test 05/15/17 06:12 White Blood Count 10.2 Red Blood Count 4.25 Hemoglobin 12.1 Hematocrit 35.6 Mean Corpuscular Volume 83.7 Mean Corpuscular Hemoglobin 28.4 Mean Corpuscular Hemoglobin Concent 33.9 Red Cell Distribution Width 14.2 Platelet Count 363 Mean Platelet Volume 9.3 Blood Urea Nitrogen 29 Creatinine 0.91 Random Glucose 111 Calcium Level 8.6 Sodium Level 142 Potassium Level 3.3 Chloride Level 104 Carbon Dioxide Level 31.7 Anion Gap 6 Estimat Glomerular Filtration Rate 83 Vancomycin Level Trough 20.7 Date/Time Source Procedure Growth Status 05/04/17 04:35 Blood Peripheral Aerobic Blood Culture - Final NO GROWTH IN 5 DAYS Complete 05/04/17 04:35 Blood Peripheral Anaerobic Blood Culture - Final NO GROWTH IN 5 DAYS Complete 05/05/17 02:51 Wound Ankle Gram Stain - Final Complete 05/05/17 02:51 Wound Culture - Final S. Aureus Mrsa Group A Beta Strep Complete Last [address] 05/15/17 0000 Signed Impressions: Service Date/Time: Monday, May 15, 2017 14:28 - CONCLUSION: 1. Moderate simple appearing bilateral pleural effusions with presumably compressive atelectasis in the lower lobes bilaterally. 2. Dense coronary artery cavitations. 3. Very trace anterior pericardial effusion. 4. Cholelithiasis. Alexander Posada MD Chest X-Ray 05/14/17 0000 Signed Impressions: Service Date/Time: Sunday, May 14, 2017 09:36 - CONCLUSION: Left-sided pleural effusion otherwise unremarkable single view of the chest. Jonny May MD Assessment and Plan Plan PAD and L Lateral malleolar ulcer. I reviewed his angiogram and don't think the PT to the foot alone is sufficient to heal the wound. I suspect he will need an attempt at peroneal or AT recanalization based on the angiosome. However, will follow wound closely. Clearly his cardiac issues take priority. Barrington Felix MD FACS RPVI pony roll finisher [facility] - Heart and Vascular Surgery at [facility] [phone] Barrington Felix MD May 15, 2017 19:47
[2017-05-16] VITALS (28 sets, daily range): BP systolic 95–150; BP diastolic 63–70; PULSE 61–80; RESP 16–20; TEMP 97.7–99; O2SAT 93–97
[2017-05-16] MEDS: HEPARIN SODIUM - SQ 10,000 UNITS/ML VIAL SQ SCH ×3 (01:50→17:30)
[2017-05-16 05:09] LABS: MEAN CELL VOLUME 82.8 FL (80.0-100.0); MEAN CORPUSCULAR HEMOGLOBIN 27.6 PG (27.0-34.0); MEAN CORPUSCULAR HGB CONC 33.3 % (32.0-36.0); PLATELET COUNT 329 TH/MM3 (150-450); RED BLOOD COUNT 4.34 MIL/MM3 (4.50-5.90); RED CELL DISTRIBUTION WIDTH 14.2 % (11.6-17.2); REVIEW FLAG FINAL; WHITE BLOOD COUNT 10.7 TH/MM3 (4.0-11.0)
[2017-05-16 05:45] LABS: BICARBONATE 31.5 MEQ/L (21.0-32.0); MAGNESIUM 2.2 MG/DL (1.5-2.5); POTASSIUM 3.3 MEQ/L (3.5-5.1)
[2017-05-16] MEDS: VANCOMYCIN INJ 1,500 MG in SODIUM CHLORID 0.9% 500 ML INJ 500 ML IV SCH (05:52)
[2017-05-16] MEDS: INSULIN ASPART SUPPLEMENTAL SCALE SQ SCH ×4 (07:55→21:04)
[2017-05-16] MEDS ORDERED: POTASSIUM CHLORIDE 25 MEQ EFFERVESCENT TAB PO ONE (08:30)
[2017-05-16] MEDS: COLLAGENASE OINT 30 GM TUBE TOPICAL SCH (09:00)
[2017-05-16] MEDS: INSULIN DETEMIR 100 UNITS/ML VIAL SQ SCH ×2 (09:00→21:03)
[2017-05-16] MEDS: ASPIRIN EC 81 MG TABEC PO SCH (09:12)
[2017-05-16] MEDS: METOPROLOL TARTRATE 25 MG TAB PO SCH ×2 (09:12→21:03)
[2017-05-16] MEDS: ENALAPRIL MALEATE 10 MG TAB PO SCH ×2 (09:13→21:02)
[2017-05-16] MEDS: SODIUM CHLORIDE 0.9% FLUSH 10 ML FLUSH IV FLUSH SCH ×2 (09:13→21:03)
[2017-05-16] MEDS: ATORVASTATIN 40 MG TAB PO SCH (09:13)
[2017-05-16] MEDS: FUROSEMIDE 40 MG/4 ML VIAL IV PUSH SCH (09:15)
--- NOTE | 2017-05-16 13:33 | RADRPT ---
EXAM DATE/TIME: 05/15/2017 00:00 [place] COMPARISON: No previous studies available for comparison. INDICATIONS : Myocardial Ischemia, Bilateral Lower Extremity Wounds TECHNIQUE: Four-cuff ankle and brachial pressures were obtained. Pulse cuff waveform tracings of the ankles were recorded, and ankle-brachial indices were calculated. PRESSURES (mmHg): Brachial (arm): Left 140 Ankle: Right 63 Left 101 CRYSTAL: Right 0.45 Left 0.72 TBI: Right 0.16 Left 0.36 PULSED CUFF WAVEFORMS: Biphasic waveforms at the right ankle. CONCLUSION: Significant reduction of the right CRYSTAL with moderate reduction of the left CRYSTAL. Ignacio Patel Jr., MD on May 16, 2017 at 13:22 Board Certified Radiologist. This report was verified electronically.
--- NOTE | 2017-05-16 14:36 | HHI.PR ---
Subjective Remarks The patient was sitting up in bed comfortably. He was wondering if he was going to pursue surgery versus go to rehabilitation. He had no acute complaints at this time. Discussed with nursing. Objective Vitals Vital Signs Date Time Temp Pulse Resp B/P (MAP) Pulse Ox O2 Delivery O2 Flow Rate FiO2 05/16/17 13:00 64 05/16/17 12:00 63 05/16/17 11:47 93 Nasal Cannula 4.00 05/16/17 11:47 99.0 69 20 136/64 (88) 93 05/16/17 11:00 69 05/16/17 10:00 72 05/16/17 09:41 97 Nasal Cannula 4.00 05/16/17 09:00 80 05/16/17 08:00 68 05/16/17 07:46 98.0 66 20 150/70 (96) 95 05/16/17 07:46 95 Nasal Cannula 4.00 05/16/17 07:00 67 05/16/17 06:00 65 05/16/17 04:36 96 Nasal Cannula Humidified 05/16/17 04:00 63 05/16/17 04:00 98.2 65 20 143/67 (92) 95 05/16/17 02:00 63 05/16/17 00:00 98.2 73 20 95/63 (74) 95 05/16/17 00:00 96 Nasal Cannula Humidified 05/15/17 20:38 98.1 67 20 134/63 (86) 94 05/15/17 20:00 96 Nasal Cannula Humidified 05/15/17 20:00 98.1 67 20 134/63 (86) 94 05/15/17 18:25 74 05/15/17 17:05 71 05/15/17 16:00 68 05/15/17 15:21 98.4 67 18 126/61 (82) 97 05/15/17 15:21 96 Nasal Cannula 4.00 05/15/17 15:00 66 I/O 05/15/17 05/15/17 05/15/17 05/16/17 05/16/17 05/16/17 07:00 15:00 23:00 07:00 15:00 23:00 Intake Total 240 ml 260 ml 1010 ml 240 ml Output Total 2200 ml 1200 ml 950 ml Balance -1960 ml 260 ml -190 ml -710 ml Intake Oral 240 ml 1010 ml 240 ml IV Total 260 ml Output Urine Total 2200 ml 1200 ml 950 ml # Voids 3 Result Diagram: 05/16/17 0436 05/16/17 0436 Imaging Last Impressions Chest CT 05/15/17 0000 Signed Impressions: Service Date/Time: Monday, May 15, 2017 14:28 - CONCLUSION: 1. Moderate simple appearing bilateral pleural effusions with presumably compressive atelectasis in the lower lobes bilaterally. 2. Dense coronary artery cavitations. 3. Very trace anterior pericardial effusion. 4. Cholelithiasis. Alexander Posada MD Chest X-Ray 05/14/17 0000 Signed Impressions: Service Date/Time: Sunday, May 14, 2017 09:36 - CONCLUSION: Left-sided pleural effusion otherwise unremarkable single view of the chest. Jonny May MD Lower Extremity Ultrasound 05/09/17 0000 Signed Impressions: Service Date/Time: April 17:40 - CONCLUSION: Normal examination. Theo Allen MD Carotid Artery Ultrasound 05/09/17 0000 Signed Impressions: Service Date/Time: April 18:07 - CONCLUSION: 1. Moderate calcified plaque around the carotid bifurcations bilaterally without evidence for hemodynamically significant stenosis. Theo Allen MD Ankle MRI 05/08/17 0000 Signed Impressions: Service Date/Time: Monday, May 08, 2017 09:48 - CONCLUSION: 1. Abnormal marrow edema within the lateral malleolus and subtle contrast enhancement. Findings are concerning for osteomyelitis. 2. Cellulitic changes in the soft tissues around the lateral aspect of the foot and ankle. Huseyin Muñoz MD Ankle X-Ray 05/04/17 0000 Signed Impressions: Service Date/Time: Thursday, May 04, 2017 15:27 - CONCLUSION: Mild degenerative type changes. Otherwise, unremarkable exam for patient's age. Lee Yao MD Objective Remarks GENERAL: Elderly male in no acute distress. HEENT: NC, AT. CARDIOVASCULAR: Normal rate and regular rhythm without murmurs, gallops, or rubs. RESPIRATORY: Diminished breath sounds at the bases otherwise clear to auscultation bilaterally. GASTROINTESTINAL: Abdomen soft, non-tender, non-distended. Normal active bowel sounds. MUSCULOSKELETAL: Left lateral ankle dressing is clean. Multiple wounds involving the right dorsal toes. Plantar surface is status post debridement by podiatry, dressing appears intact. NEURO: Alert & Oriented x4 to person, place, time, situation. Moves all ext x4 PSYCH: Appropriate mood and affect. Procedures None Medications and IVs Current Medications Medications (Trade) Dose Ordered Sig/Tatyana Route Start Time Stop Time Status Last Admin (NS Flush) 2 ml UNSCH PRN IV FLUSH 05/04/17 08:15 05/05/17 17:26 (NS Flush) 2 ml BID IV FLUSH 05/04/17 09:00 05/16/17 09:13 (Tylenol) 650 mg Q4H PRN PO 05/04/17 08:15 05/05/17 03:15 (Zofran Inj) 4 mg Q6H PRN IVP 05/04/17 08:15 (Narcan Inj) 0.4 mg UNSCH PRN IV PUSH 05/04/17 08:15 (Milk Of Magnesia Liq) 30 ml Q12H PRN PO 05/04/17 08:15 (Senokot) 17.2 mg Q12H PRN PO 05/04/17 08:15 (Dulcolax Supp) 10 mg DAILY PRN RECTAL 05/04/17 08:15 (Lactulose Liq) 30 ml DAILY PRN PO 05/04/17 08:15 (Morphine Inj) 2 mg Q3H PRN IV PUSH 05/04/17 08:15 (Ecotrin Ec) 81 mg DAILY PO 05/04/17 09:00 05/16/17 09:12 (Nitrostat Sl) 0.4 mg Q5M PRN SL 05/04/17 08:15 (D50w (Vial) Inj) 50 ml UNSCH PRN IV PUSH 05/04/17 08:15 (Glucagon Inj) 1 mg UNSCH PRN OTHER 05/04/17 08:15 (NovoLOG SUPPLEMENTAL SCALE) 1 ACHS SLIDING SCALE SQ 05/04/17 12:00 05/16/17 11:58 Pharmacy Profile Note 0 ml @ 0 mls/hr UNSCH OTHER 05/04/17 15:15 (Vasotec) 20 mg BID PO 05/04/17 21:00 05/16/17 09:13 (Lipitor) 40 mg DAILY PO 05/05/17 09:00 05/16/17 09:13 (Duoneb Neb) 1 ampule Q4HR NEB PRN NEB 05/05/17 09:00 05/14/17 05:43 (Ultram) 50 mg Q8H PRN PO 05/05/17 09:00 (Lopressor) 25 mg Q12HR PO 05/05/17 21:00 05/16/17 09:12 (Santyl Oint) 1 applic DAILY TOPICAL 05/07/17 09:00 05/16/17 09:00 (Atropine Inj) 0.5 mg UNSCH PRN IV PUSH 05/09/17 10:30 (fentaNYL INJ) 25 mcg Q30M PRN IV PUSH 05/09/17 10:30 (Levemir Inj) 8 units Q12HR SQ 05/11/17 09:00 05/16/17 09:00 (Heparin Inj) 5,000 units Q8H SQ 05/11/17 09:00 05/16/17 09:12 (Lasix Inj) 40 mg BID@0900,1800 IV PUSH 05/14/17 09:00 05/16/17 09:15 Vancomycin HCl 1500 mg/Sodium Chloride 515 ml @ 250 mls/hr Q24H IV 05/16/17 06:00 05/16/17 05:52 Miscellaneous Information SPECIFIC LAB TO BE DRAWN:VANCOMYCIN TROUGH DATE TO... ONCE ONCE .XX 05/19/17 05:45 05/19/17 05:46 A/P Assessment and Plan 71 Y/O male with multiple comorbid conditions including acute respiratory failure secondary to CHF and COPD. Patient had an NSTEMI, multivessel disease in need of CABG. He also presented with sepsis secondary to foot infection and osteomyelitis. Apparent PAD. Improving. CT surgery recommends maximal medical management prior to CABG. Timing of surgery to be determined based on his clinical course. Late this week vs DC to rehab and reschedule. Podiatry requested recs from ID on whether or not he can be treated with IV antibiotics for osteomyelitis for now as he is a high surgical risk given the need for CABG. He needs to be medically optimized, have CABG, then podiatry intervention if needed. Continue with diuresis. Acute respiratory failure suspect due to combination of pulmonary edema from acute systolic CHF, EF 30%. Patient also has COPD.: Improving. On Bipap at night. - BiPAP at night. NC. Responding to diuresis. - Continue Lasix 40 mg IV BID. - KCl as needed - cont BB and ACEi - follow Is and Os - nebs as needed. - IS Sepsis due to Diabetic foot ulcer with infection and osteomyelitis, Left lower ext cellulitis, also has PAD - Patient met sepsis criteria with elevated white count of 18.5, tachycardia with heart rate of 94 and source of left leg cellulitis and open diabetic left ankle ulcer. - X ray of the left ankle is unremarkable. MRI shows abnormal marrow edema within the lateral malleolus concerning for osteomyelitis. - IV vancomycin per ID - blood cultures negative so far/ wound culture with MRSA and strep - podiatry following. S/P bedside debridement - ID following. Per ID, no absolute contraindication for surgery given the benefit of surgery outweigh the risks - s/p left lower extremity angiogram with balloon angioplasty in the left external iliac artery, and angioplasty and atherectomy in the posterior tibial and posterior tibial peritoneal trunk by Dr. casarez. doppler pulse AT/PT LLE. no stent placed due to ongoing infection and no clear target. - vascular surgery following. Encephalopathy vs Delirium: Resolved - Likely delirium secondary to medical conditions above. NSTEMI - Cardiology following. Status post left heart catheterization with Dr. casarez showing 80% stenosis in the distal LAD, 99% occlusion of the left circumflex, diffusely diseased right coronary artery. CT surgery following - continue ASA and statin, metoprolol, enalapril 20 mg PO BID. - echo with EF 35% - telemetry - Continue maximal medical management. CT surgery to determine timing of surgery. Anticipate d/c to SNF for two weeks. Hypertension - Continue Norvasc, enalapril and metoprolol - Monitor blood pressure and adjust treatment accordingly. Relatively well controlled. Diabetes Mellitus. - Hemoglobin A1c 7.3%. - cont Levemir to 5 units subq bid, continue sliding scale insulin with Aspart. COPD, 40 pack year tobacco history -Breathing treatment as needed. Hold off on steroid for now. he is moving air better. - Supplemental oxygen to keep sats>90% heparin for DVT prophylaxis Discharge Planning Anticipate d/c to SNF Alexx Sharp DO May 16, 2017 14:36
--- NOTE | 2017-05-16 14:52 | PD.CAR.PN ---
CVT Progress Note Subjective/Hospital Course: 71/ male presented with complaint of worsening infection in his left ankle that he has had off and on for the last 3 weeks. He had a open wound on the outside aspect of the ankle. He has longstanding history of diabetes on insulin. He has also been complaining of some increased weakness and fatigue for the past 6 months. He said he had normally ambulated unassisted, was having more difficulty getting around due to the weakness and discomfort. Incidentally on admission he had EKG done which showed some ST elevation in lead II only, however, he did have some T-wave depression in the lateral leads, some poor R- wave progression, no prior EKG to compare. He then had a troponin elevated at 1.26. He was ruled in for non-STEMI. He was taken then to the mechanical laboratory technician by Dr. Melchor this morning which showed the LAD approximately 20% stenosis, moderate sized diagonal branches, 40% proximal stenosis, the LAD beyond the takeoff of the diagonal was 90% stenosed, the second diagonal branch had some luminal irregularities, the LAD distal had 80% lesion, left circ had a 99% subtotal occlusion and the right coronary artery had heavily calcified subtotal occlusion , ejection fraction approximately 35%. S/p left external iliac [employer] (good common femoral artery pulse) and s/p atherectomy/[employer] left posterior tibial artery. anterior tibial artery occluded. Doppler PT and AT. No vascular surgical options given poor runoff with small vessels (all distal disease). . We were consulted to evaluate for coronary artery bypass grafting. PAST MEDICAL HISTORY: Hypertension, Uncontrolled diabetes mellitus, COPD with ongoing tobacco use , severe PAD , Excision of melanoma from the face, chronic wound on his left ankle for about 3 weeks. left ankle wound MRSA group A Beta strep / on IV antibiotics carotid OK no DVT await PFT MRI cleft ankle concern for osteomyelitis 05/10 pt transfer to CVICU yesterday evening resp failure, hypoxemia, placed on Bipap PO2 66 on 60% fio2 / pt now on 6 liters / 91% fi02 was given lasix , also on scheduled diuretic , denied any chest pain , followed by ID agree that pt will need time to recover and continued IV antibiotics/ wound care would continue to maximize medical therapy and re-eval timing for surgery next week may need SNF / PT and return for CABG s/p left external iliac [employer] (good common femoral artery pulse) and s/p atherectomy/[employer] left posterior tibial artery. anterior tibial artery occluded. Doppler PT and AT. No vascular surgical options given poor runoff with small vessels (all distal disease). Likely will need time and IV antiobiotics +/- hyperbaric therapy. 05/13 pt still on Bipap at night now 5 liter nasal cannula BNP 1800, poor nutritional status with Albumin 1.8 FEV1 0.82/ podiatry following wounds on leg re-commend optimizing medical therapy for now PT/OT 05/14 remains on Bipap at night , now on 5 liters 02 up in chair, has alot of pain bearing weight on left foot left ankle wound / antibiotics / santly ointment ID following , may need ortho boot to facilitate ambulation re-eval timing for surgery with Dr Alfaro continue to maximize medical management, ok to transfer to stepdown 05/15 pulmonary consult noted re-eval FEV1 in am now on 4 liters, , ID note noted , still has difficulty with mobility , but improving will make final decision on timing PFT in am 05/16 FEV1 improved to 1.10 some improvement in ambulation with ortho boots still very deconditioned , pt re-eval by Dr Alfaro who spoke with Dr Melchor plan is to allow pt to go to SNF / improve conditioning / further continued treatment for leg ulcer and followup with Dr Alfaro in 2-3 weeks Objective: GENERAL: A&O SKIN: Warm and dry. dressing to left and right ankle / ortho boots in place HEAD: Normocephalic. EYES: No scleral icterus. No injection or drainage. NECK: Supple, trachea midline. No JVD or lymphadenopathy. CARDIOVASCULAR: Regular rate and rhythm without murmurs, gallops, or rubs. RESPIRATORY: Breath sounds equal bilaterally. No accessory muscle use. diminished in bases , on 3-4 liters nasal cannula GASTROINTESTINAL: Abdomen soft, non-tender, nondistended. MUSCULOSKELETAL: No cyanosis, or edema. BACK: Nontender without obvious deformity. No CVA tenderness. Vital Signs Date Time Temp Pulse Resp B/P (MAP) Pulse Ox O2 Delivery O2 Flow Rate FiO2 05/16/17 14:00 66 05/16/17 13:00 64 05/16/17 12:00 63 05/16/17 11:47 93 Nasal Cannula 4.00 05/16/17 11:47 99.0 69 20 136/64 (88) 93 12/21/17 11:00 69 05/16/17 10:00 72 05/16/17 09:41 97 Nasal Cannula 4.00 05/16/17 09:00 80 05/16/17 08:00 68 05/16/17 07:46 98.0 66 20 150/70 (96) 95 05/16/17 07:46 95 Nasal Cannula 4.00 05/16/17 07:00 67 05/16/17 06:00 65 05/16/17 04:36 96 Nasal Cannula Humidified 05/16/17 04:00 63 05/16/17 04:00 98.2 65 20 143/67 (92) 95 05/16/17 02:00 63 05/16/17 00:00 98.2 73 20 95/63 (74) 95 05/16/17 00:00 96 Nasal Cannula Humidified 05/15/17 20:38 98.1 67 20 134/63 (86) 94 05/15/17 20:00 96 Nasal Cannula Humidified 05/15/17 20:00 98.1 67 20 134/63 (86) 94 05/15/17 18:25 74 05/15/17 17:05 71 05/15/17 16:00 68 05/15/17 15:21 98.4 67 18 126/61 (82) 97 05/15/17 15:21 96 Nasal Cannula 4.00 05/15/17 15:00 66 Labs: Laboratory Tests Test 05/16/17 04:36 White Blood Count 10.7 TH/MM3 (4.0-11.0) Red Blood Count 4.34 MIL/MM3 (4.50-5.90) Hemoglobin 12.0 GM/DL (13.0-17.0) Hematocrit 36.0 % (39.0-51.0) Mean Corpuscular Volume 82.8 FL (80.0-100.0) Mean Corpuscular Hemoglobin 27.6 PG (27.0-34.0) Mean Corpuscular Hemoglobin Concent 33.3 % (32.0-36.0) Red Cell Distribution Width 14.2 % (11.6-17.2) Platelet Count 329 TH/MM3 (150-450) Mean Platelet Volume 9.1 FL (7.0-11.0) Blood Urea Nitrogen 26 MG/DL (7-18) Creatinine 1.00 MG/DL (0.60-1.30) Random Glucose 112 MG/DL (74-106) Calcium Level 8.5 MG/DL (8.5-10.1) Magnesium Level 2.2 MG/DL (1.5-2.5) Sodium Level 142 MEQ/L (136-145) Potassium Level 3.3 MEQ/L (3.5-5.1) Chloride Level 103 MEQ/L (98-107) Carbon Dioxide Level 31.5 MEQ/L (21.0-32.0) Anion Gap 8 MEQ/L (5-15) Estimat Glomerular Filtration Rate 74 ML/MIN (>89) Result Diagram: 05/16/1743505/16/17435 Telemetry: NSR (1) Pressure ulcer Plan: wound care , ID and podiatry following fibular osteomyelitis will need PICC and continued IV antibiotics per ID (2) Acute myocardial infarction Plan: on ASA , statin , BB recommend maximizing medical therapy at this time recommend SNF/ re-eval as outpt for surgery / hs appointment with Dr Alfaro poor conditioning low FEV1 0.82> 1.10 / OT/PT (3) COPD (chronic obstructive pulmonary disease) Plan: nebs, pulm toileting (4) Coronary artery disease Plan: ASA, statin BB (5) CHF (congestive heart failure) Plan: on diuretics, EF 35% Problem Qualifiers (1) Pressure ulcer: (2) Acute myocardial infarction: Qualified Codes: I21.3 - ST elevation (STEMI) myocardial infarction of unspecified site (3) Coronary artery disease: Qualified Codes: I25.110 - Atherosclerotic heart disease of [place] coronary artery with unstable angina pectoris Teresa Peterson May 16, 2017 14:52
--- NOTE | 2017-05-16 18:08 | HHI.PR ---
Subjective Remarks RESPIRATORY FAILURE COPD CHF CAD ALERT NO DISTRESS Objective Vital Signs Date Time Temp Pulse Resp B/P (MAP) Pulse Ox O2 Delivery O2 Flow Rate FiO2 05/16/17 17:00 68 05/16/17 16:00 65 05/16/17 15:41 97 Nasal Cannula 3.00 05/16/17 15:41 97.7 67 20 140/66 (90) 97 05/16/17 15:00 67 05/16/17 14:00 66 05/16/17 13:00 64 05/16/17 12:00 63 05/16/17 11:47 93 Nasal Cannula 4.00 05/16/17 11:47 99.0 69 20 136/64 (88) 93 05/16/17 11:00 69 05/16/17 10:00 72 05/16/17 09:41 97 Nasal Cannula 4.00 05/16/17 09:00 80 05/16/17 08:00 68 05/16/17 07:46 98.0 66 20 150/70 (96) 95 05/16/17 07:46 95 Nasal Cannula 4.00 05/16/17 07:00 67 05/16/17 06:00 65 05/16/17 04:36 96 Nasal Cannula Humidified 05/16/17 04:00 63 05/16/17 04:00 98.2 65 20 143/67 (92) 95 05/16/17 02:00 63 05/16/17 00:00 98.2 73 20 95/63 (74) 95 05/16/17 00:00 96 Nasal Cannula Humidified 05/15/17 20:38 98.1 67 20 134/63 (86) 94 05/15/17 20:00 96 Nasal Cannula Humidified 05/15/17 20:00 98.1 67 20 134/63 (86) 94 05/15/17 18:25 74 I/O 05/15/17 05/15/17 05/15/17 05/16/17 05/16/17 05/16/17 07:00 15:00 23:00 07:00 15:00 23:00 Intake Total 240 ml 260 ml 1010 ml 240 ml 720 ml Output Total 2200 ml 1200 ml 950 ml 900 ml Balance -1960 ml 260 ml -190 ml -710 ml -180 ml Intake Oral 240 ml 1010 ml 240 ml 720 ml IV Total 260 ml Output Urine Total 2200 ml 1200 ml 950 ml 900 ml # Voids 3 Result Diagram: 05/16/17 0436 05/16/17 0436 Procedures Bedside full-thickness excisional debridement of right sub met 5 ulcer to subcutaneous tissue with 10 blade Objective Remarks GENERAL: SKIN: Warm and dry. HEAD: Atraumatic. Normocephalic. EYES: Pupils equal and round. No scleral icterus. No injection or drainage. ENT: No nasal bleeding or discharge. Mucous membranes pink and moist. NECK: Trachea midline. No JVD. CARDIOVASCULAR: Regular rate and rhythm. RESPIRATORY: No accessory muscle use. RHONCHI AT BASIS. GASTROINTESTINAL: Abdomen soft, non-tender, nondistended. Hepatic and splenic margins not palpable. MUSCULOSKELETAL: Extremities without clubbing, cyanosis, or edema. No obvious deformities. NEUROLOGICAL: Awake and alert. No obvious cranial nerve deficits. Motor grossly within normal limits. Five out of 5 muscle strength in the arms and legs. Normal speech. PSYCHIATRIC: Appropriate mood and affect; insight and judgment normal. Assessment and Plan Assessment and Plan RESPIRATORY FAILURE COPD CHF CAD PLAN O2 BRONCHODILATOR THERAPY INCREASE ACTIVITY Li Jefferson MD May 16, 2017 18:08
[2017-05-17] VITALS (16 sets, daily range): BP systolic 149–151; BP diastolic 68–73; PULSE 62–85; RESP 16–20; TEMP 97.8–98.7; O2SAT 92–95
[2017-05-17] MEDS: VANCOMYCIN INJ 1,500 MG in SODIUM CHLORID 0.9% 500 ML INJ 500 ML IV SCH (05:30)
[2017-05-17 07:23] LABS: BICARBONATE 33.5 MEQ/L (21.0-32.0); MAGNESIUM 2.1 MG/DL (1.5-2.5); POTASSIUM 3.3 MEQ/L (3.5-5.1)
[2017-05-17] MEDS: INSULIN ASPART SUPPLEMENTAL SCALE SQ SCH ×2 (08:00→12:00)
[2017-05-17] MEDS: INSULIN DETEMIR 100 UNITS/ML VIAL SQ SCH (09:00)
[2017-05-17] MEDS: COLLAGENASE OINT 30 GM TUBE TOPICAL SCH (09:00)
[2017-05-17] MEDS ORDERED: FUROSEMIDE 40 MG TAB PO SCH (09:00)
[2017-05-17] MEDS: SODIUM CHLORIDE 0.9% FLUSH 10 ML FLUSH IV FLUSH SCH (09:00)
[2017-05-17] MEDS: ATORVASTATIN 40 MG TAB PO SCH (09:05)
[2017-05-17] MEDS: ASPIRIN EC 81 MG TABEC PO SCH (09:05)
[2017-05-17] MEDS: HEPARIN SODIUM - SQ 10,000 UNITS/ML VIAL SQ SCH ×2 (09:05)
[2017-05-17] MEDS: METOPROLOL TARTRATE 25 MG TAB PO SCH (09:05)
[2017-05-17] MEDS: ENALAPRIL MALEATE 10 MG TAB PO SCH (09:05)
[2017-05-17] MEDS ORDERED: POTA-163 PO (09:27)
[2017-05-17] MEDS ORDERED: ECASA81 PO (09:27)
[2017-05-17] MEDS ORDERED: [UNRECOGNIZED DRUG - CODE] IV (09:27)
[2017-05-17] MEDS ORDERED: FURO40TA PO (09:27)
[2017-05-17] MEDS ORDERED: COLL30T TOPICAL (09:27)
[2017-05-17] MEDS ORDERED: METO25TA3 PO (09:27)
[2017-05-17] MEDS ORDERED: ATOR40TA16 PO (09:27)
[2017-05-17] MEDS ORDERED: NOVO7030P2 SQ (09:27)
[2017-05-17] MEDS ORDERED: POTASSIUM CHLORIDE 20 MEQ CONTROLLED RELEASE TAB PO ONE (09:30)
--- NOTE | 2017-05-17 09:40 | HHI.DS ---
Discharge Summary Admission Date May 04, 2017 at 09:35 Discharge Date: May 17, 2017 Admitting Diagnosis myocardial ischemia (1) Coronary artery disease ICD Code: I25.10 - Atherosclerotic heart disease of stebbins coronary artery without angina pectoris Diagnosis: Principal (2) CHF (congestive heart failure) ICD Code: I50.9 - Heart failure, unspecified Diagnosis: Principal (3) COPD (chronic obstructive pulmonary disease) ICD Code: J44.9 - Chronic obstructive pulmonary disease, unspecified (4) Venous stasis ulcer ICD Code: I83.009 - Varicose veins of unspecified lower extremity with ulcer of unspecified site; L97.909 - Non-pressure chronic ulcer of unspecified part of unspecified lower leg with unspecified severity Diagnosis: Principal Status: Acute Procedures Catheterization Angiogram Brief History - From Admission Written by Zabrina Donahue, acting as scribe for Dr. Sharp on 05/04/17 at 15: 36. This is a 71-year-old male with a past medical history significant for hypertension, diabetes and COPD with ongoing tobacco use who presents to [facility] ED with complaints of worsening infection in the left ankle. Patient states he began having pain and redness in the left ankle about 3 weeks ago that has been steadily increasing. He now has an open sore over the outside aspect of the ankle. He denies any previous history of a diabetic ulcer. He denies any injury to the ankle. He reports he normally ambulates unassisted but is having more difficulty getting around due to increasing weakness. Patient states he has not be eating well for the past several months and has begun drinking up to 7 cups of coffee daily. He denies any alcohol use. He smokes 2 packs of cigarettes a day. He does endorse night sweats. Incidentally while in the ED, patient was noted to have ST elevations in the inferior leads on EKG. Patient was noted to have an elevated troponin of 1.26. 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 Patient was started on a heparin drip. He denies any complaints of chest pain, chest tightness or shortness of breath. Patient denies any cardiac history. He is on oxycodone for chronic pain and has opioid-induced constipation, but reports good bowel movements recently. CBC/BMP: 05/16/17 0436 05/17/17 0617 Significant Findings Laboratory Tests Test 05/15/17 06:12 05/16/17 04:36 05/17/17 06:17 Red Blood Count 4.25 MIL/MM3 (4.50-5.90) 4.34 MIL/MM3 (4.50-5.90) Hemoglobin 12.1 GM/DL (13.0-17.0) 12.0 GM/DL (13.0-17.0) Hematocrit 35.6 % (39.0-51.0) 36.0 % (39.0-51.0) Blood Urea Nitrogen 29 MG/DL (7-18) 26 MG/DL (7-18) 25 MG/DL (7-18) Random Glucose 111 MG/DL (74-106) 112 MG/DL (74-106) 107 MG/DL (74-106) Potassium Level 3.3 MEQ/L (3.5-5.1) 3.3 MEQ/L (3.5-5.1) 3.3 MEQ/L (3.5-5.1) Estimat Glomerular Filtration Rate 83 ML/MIN (>89) 74 ML/MIN (>89) 69 ML/MIN (>89) Vancomycin Level Trough 20.7 MCG/ML (5.0-10.0) Carbon Dioxide Level 33.5 MEQ/L (21.0-32.0) Anion Gap 4 MEQ/L (5-15) Imaging Last Impressions Chest CT 05/15/17 0000 Signed Impressions: Service Date/Time: Monday, May 15, 2017 14:28 - CONCLUSION: 1. Moderate simple appearing bilateral pleural effusions with presumably compressive atelectasis in the lower lobes bilaterally. 2. Dense coronary artery cavitations. 3. Very trace anterior pericardial effusion. 4. Cholelithiasis. Alexander Posada MD Chest X-Ray 05/14/17 0000 Signed Impressions: Service Date/Time: Sunday, May 14, 2017 09:36 - CONCLUSION: Left-sided pleural effusion otherwise unremarkable single view of the chest. Jonny May MD Lower Extremity Ultrasound 05/09/17 0000 Signed Impressions: Service Date/Time: April 17:40 - CONCLUSION: Normal examination. Theo Allen MD Carotid Artery Ultrasound 05/09/17 0000 Signed Impressions: Service Date/Time: April 18:07 - CONCLUSION: 1. Moderate calcified plaque around the carotid bifurcations bilaterally without evidence for hemodynamically significant stenosis. Theo Allen MD Ankle MRI 05/08/17 0000 Signed Impressions: Service Date/Time: Monday, May 08, 2017 09:48 - CONCLUSION: 1. Abnormal marrow edema within the lateral malleolus and subtle contrast enhancement. Findings are concerning for osteomyelitis. 2. Cellulitic changes in the soft tissues around the lateral aspect of the foot and ankle. Huseyin Muñoz MD Ankle X-Ray 05/04/17 0000 Signed Impressions: Service Date/Time: Thursday, May 04, 2017 15:27 - CONCLUSION: Mild degenerative type changes. Otherwise, unremarkable exam for patient's age. Lee Yao MD PE at Discharge GENERAL: Elderly male in no acute distress. HEENT: NC, AT. CARDIOVASCULAR: Normal rate and regular rhythm without murmurs, gallops, or rubs. RESPIRATORY: Diminished breath sounds at the bases otherwise clear to auscultation bilaterally. GASTROINTESTINAL: Abdomen soft, non-tender, non-distended. Normal active bowel sounds. MUSCULOSKELETAL: Left lateral ankle dressing is clean. Multiple wounds involving the right dorsal toes. Plantar surface is status post debridement by podiatry, dressing appears intact. NEURO: Alert & Oriented x4 to person, place, time, situation. Moves all ext x4 PSYCH: Appropriate mood and affect. Pt update on day of discharge The pt was feeling well. He had no acute complaints. He understood the plan of care. Discussed with nursing. Hospital Course Sepsis Patient met sepsis criteria with elevated white count of 18.5, tachycardia with heart rate of 94 and source of left leg cellulitis and open diabetic left ankle ulcer. X ray of the left ankle was unremarkable. MRI showed abnormal marrow edema within the lateral malleolus concerning for osteomyelitis. He was started on IV vancomycin per infectious disease. Blood cultures negative. Wound culture with MRSA and strep. Podiatry following. S/p bedside debridement. S/p left lower extremity angiogram with balloon angioplasty in the left external iliac artery, and angioplasty and atherectomy in the posterior tibial and posterior tibial peritoneal trunk by cardiology. Doppler pulse AT/PT LLE. No stent placed due to ongoing infection and no clear target. Vascular surgery was consulted. The pt will follow with cardiology, vascular surgery and podiatry as an outpt. He will continue IV vancomycin in the meantime and will have a CBC and CMP checked in 3-5 days. NSTEMI Cardiology was consulted. Status post left heart catheterization showing 80% stenosis in the distal LAD, 99% occlusion of the left circumflex, diffusely diseased right coronary artery. CT surgery was consulted. He was continued on ASA, statin, metoprolol and enalapril. Echo with EF 35%. He was monitored on telemetry. CT surgery recommending pt to be discharged to SNF for two weeks and then they will perform bypass surgery. Acute respiratory failure Imaging revealed pulmonary edema. The pt received BiPAP at night. He responded to diuresis with Lasix 40 mg IV BID. He received KCl as needed. He was weaned to nasal cannula. He received nebs as needed as well as incentive spirometry. Pulmonology was consulted and the pt will follow with pulmonology as an outpt. He will continue nebulizers as needed. Diabetes Mellitus. Hemoglobin A1c 7.3%. He will resume his home meds. Insulin has been decreased to 15 units BID. His blood sugars will need to be monitored and his medications should be adjusted accordingly. Pt Condition on Discharge: Stable Discharge Disposition: Discharge to SNF Discharge Time: > 30 minutes Discharge Instructions DIET: Follow Instructions for: Heart Healthy Diet Activities you can perform: Weight Bearing as Arielal Follow up Referrals: SNF/CUSTODIAL/HH with [facility] - 3 Weeks with Flavia Alfaro MD New Orders: CBC WITH DIFF - 3-5 Days COMP MET PROF (CMP) - 3-5 Days New Medications: Insulin Human Isophane-Regular 70-30 Inj (Novolin 70-30 Inj) 1,000 Unit/10 Ml Vial 15 UNITS SQ BID for Blood Sugar Management for 30 Days, ML 0 Refills Ipratropium-Albuterol Neb (Duoneb) 0.5-2.5 Mg/3 Ml Neb 1 NEBULE INH Q4HR NEB PRN for DYSPNEA, #60 NEBULE 0 Refills Potassium Chloride ER (Potassium Chloride ER) 20 Meq Tab 20 MEQ PO DAILY for Electrolyte Replacement, #30 TAB 0 Refills Vancomycin HCl in Dextrose 5 % (Vancomycin 1.5 Gram/250 ml-D5w) 1.5 Gram/250 Ml Plast..bag 1.5 GM IV DAILY for Infection for 30 Days, #[address] (Aspirin DR) 81 Mg Tabdr 81 MG PO DAILY for Heart, #30 TAB Atorvastatin (Atorvastatin) 40 Mg Tab 40 MG PO DAILY for Cholesterol Management, #30 TAB Collagenase (Santyl) 250 Unit/Gram Oin 1 APPLIC TOPICAL DAILY for Skin, #1 TUBE Furosemide (Furosemide) 40 Mg Tab 40 MG PO DAILY for Heart failure, #30 TAB Metoprolol Tartrate (Metoprolol Tartrate) 25 Mg Tab 25 MG PO Q12HR for Blood Pressure Management, #60 TAB Continued Medications: Enalapril (Enalapril) 20 Mg Tab 20 MG PO BID, #30 TAB 0 Refills Glipizide (Glipizide) 5 Mg Tab 2.5 MG PO BIDAC for Blood Sugar Management, #60 TAB 0 Refills Take 30 minutes before a meal Metformin (Metformin) 1,000 Mg Tab 1000 MG PO BIDPC for Blood Sugar Management, #60 TAB 0 Refills Tizanidine (Tizanidine) 4 Mg Cap 4 MG PO HS, CAP 0 Refills Discontinued Medications: Amlodipine (Amlodipine) 10 Mg Tab 10 MG PO DAILY for Blood Pressure Management, #30 TAB 0 Refills Hydrochlorothiazide (Hydrochlorothiazide) 25 Mg Tab 25 MG PO DAILY, #30 TAB 0 Refills Insulin Human Isophane-Regular 70-30 Inj (Novolin 70-30 Inj) 1,000 Unit/10 Ml Vial 30 UNITS SQ BID for Blood Sugar Management, ML 0 Refills Tramadol (Tramadol) 50 Mg Tab 50 MG PO BID PRN for PAIN, TAB 0 Refills Alexx Sharp DO May 17, 2017 09:40
[2017-05-17] MEDS ORDERED: IPRASOL INH (09:41)
--- NOTE | 2017-05-17 09:42 | HHI.DCPOC ---
Discharge Care Plan Diagnosis: (1) CHF (congestive heart failure) (2) Coronary artery disease (3) COPD (chronic obstructive pulmonary disease) (4) Venous stasis ulcer Goals to Promote Your Health * To prevent worsening of your condition and complications * To maintain your health at the optimal level Directions to Meet Your Goals Take your medications as prescribed Follow your dietary instruction Follow activity as directed Keep your appointments as scheduled Take your immunizations and boosters as scheduled If your symptoms worsen call your PCP, if no PCP go to Urgent Care Center or Emergency Room Smoking is Dangerous to Your Health. Avoid second hand smoke Call the 24-hour hour crisis hotline for domestic abuse at Alexx Sharp DO May 17, 2017 09:42
[2017-05-17] MEDS ORDERED: SODIUM CHLORIDE 0.9% FLUSH 10 ML FLUSH IV FLUSH PRN (11:00)
--- NOTE | 2017-05-17 12:08 | RADRPT ---
EXAM DATE/TIME: 05/17/2017 10:42 [facility] COMPARISON: CHEST SINGLE AP, May 14, 2017, 9:36. INDICATIONS : PICC line placement. MEDICAL HISTORY : Cardiovascular disease. Hypertension Chronic obstructive pulmonary SURGICAL HISTORY : None. ENCOUNTER: Initial ACUITY: 2 weeks PAIN SCORE: 0/10 LOCATION: Bilateral chest FINDINGS: PICC line tip superior vena cava. Basilar airspace disease, improved on the left since the April 26 exam. Small effusions. No pneumothorax. CONCLUSION: 1. Right PICC line in superior vena cava. Improved basilar airspace disease on the left. Theo Allen MD on May 17, 2017 at 12:05 Board Certified Radiologist. This report was verified electronically.
[2017-05-18] MEDS ORDERED: SODIUM CHLORIDE 0.9% FLUSH 10 ML FLUSH IV FLUSH SCH (09:00)
[2017-05-19] MEDS ORDERED: PHARMACY ORDERED LAB ONE (05:45)
--- NOTE | 2017-05-21 10:38 | RSPPFT ---
DATE OF PROCEDURE: 05/10/17 COMMENTS: Spirometry demonstrates an FEV1 of 0.8 at 24% of predicted, FVC of 0.8 at 19%, FEF 25-75 at 32%. Post-bronchodilator study was not conducted. Flow volume loop suggests a restrictive pattern. IMPRESSION: 1. Moderately severe restrictive disease. 2. Additional mild to moderate obstructive disease.
== END 2017-05-17 13:15 | DRG 853 ==
LOC: NEPE 00:35 → INTOOBSV 04:27 → NEDA 04:27 → OBSVTOIN 09:35 → HCPC 10:19 → HCVI 05-09 17:20 → HCPC 05-14 10:49
PROVIDERS: ADMIT Family Medicine; ATTEND Hospitalist
PROC: 5A09557 Assistance with Respiratory Ventilation, Greater than 96 Consecutive Hours, Continuous Positive Airway Pressure (ICD-10-PCS; 2017-05-06)
PROC: 04CU3ZZ Extirpation of Matter from Left Peroneal Artery, Percutaneous Approach (ICD-10-PCS; 2017-05-09)
PROC: 047J3ZZ Dilation of Left External Iliac Artery, Percutaneous Approach (ICD-10-PCS; 2017-05-09)
PROC: 047U3ZZ Dilation of Left Peroneal Artery, Percutaneous Approach (ICD-10-PCS; 2017-05-09)
PROC: B2111ZZ Fluoroscopy of Multiple Coronary Arteries using Low Osmolar Contrast (ICD-10-PCS; 2017-05-09)
PROC: B4101ZZ Fluoroscopy of Abdominal Aorta using Low Osmolar Contrast (ICD-10-PCS; 2017-05-09)
PROC: B41G1ZZ Fluoroscopy of Left Lower Extremity Arteries using Low Osmolar Contrast (ICD-10-PCS; 2017-05-09)
PROC: 4A023N7 Measurement of Cardiac Sampling and Pressure, Left Heart, Percutaneous Approach (ICD-10-PCS; principal; 2017-05-09 08:30)
PROC: 0JBR0ZZ Excision of Left Foot Subcutaneous Tissue and Fascia, Open Approach (ICD-10-PCS; 2017-05-10)
DX: A41.9 Sepsis, unspecified organism (principal); I21.4 Non-ST elevation (NSTEMI) myocardial infarction; J96.01 Acute respiratory failure with hypoxia; I50.21 Acute systolic (congestive) heart failure; L03.116 Cellulitis of left lower limb; F05 Delirium due to known physiological condition; I42.9 Cardiomyopathy, unspecified; L97.329 Non-pressure chronic ulcer of left ankle with unspecified severity; M86.672 Other chronic osteomyelitis, left ankle and foot; J44.1 Chronic obstructive pulmonary disease with (acute) exacerbation; E11.621 Type 2 diabetes mellitus with foot ulcer; E11.622 Type 2 diabetes mellitus with other skin ulcer; I25.10 Atherosclerotic heart disease of native coronary artery without angina pectoris; I70.202 Unspecified atherosclerosis of native arteries of extremities, left leg; I70.0 Atherosclerosis of aorta; E87.6 Hypokalemia; L84 Corns and callosities; I11.0 Hypertensive heart disease with heart failure; E11.51 Type 2 diabetes mellitus with diabetic peripheral angiopathy without gangrene; F17.210 Nicotine dependence, cigarettes, uncomplicated; E11.69 Type 2 diabetes mellitus with other specified complication; B95.62 Methicillin resistant Staphylococcus aureus infection as the cause of diseases classified elsewhere; B95.0 Streptococcus, group A, as the cause of diseases classified elsewhere; L97.529 Non-pressure chronic ulcer of other part of left foot with unspecified severity; R53.1 Weakness; Z85.820 Personal history of malignant melanoma of skin; Z88.5 Allergy status to narcotic agent; Z88.8 Allergy status to other drugs, medicaments and biological substances; Z79.4 Long term (current) use of insulin
CPT/HCPCS: 36569; 36600; 37220; 37229; 71010; 71250; 73610; 73723; 75625; 75710; 80048; 80053; 80061; 80202; 80307; 81001; 82140; 82550; 82805; 82948; 83036; 83605; 83735; 83880; 84155; 84443; 84484; 85002; 85025; 85027; 85610; 85730; 86403; 87040; 87070; 87147; 87186; 87205; 93005; 93306; 93454; 93880; 93922; 93970; 93998; 94002; 94003; 94010; 94150; 94640; 94664; 96365; 96368; 96375; 99152; 99153; A9579; C1714; C1725; C1751; C1769; C1893; J0153; J0171; J0461; J1644; J1815; J1940; J2250; J2543; J3010; J3370; J7030; J7040; J7050; L2114; L3260

== ENCOUNTER 2017-05-21 12:14 | Inpatient (IN) | payer MEDICARE, MEDICAID ==
[~2017-05-21] VITALS: Ht 182.9 cm; Wt 84.5 kg
[2017-05-21] VITALS (11 sets, daily range): BP systolic 121–190; BP diastolic 69–112; PULSE 76–98; RESP 18–31; TEMP 97.8–98.6; O2SAT 93–98
[~2017-05-21 12:14] MED LIST changes: -1-ME1LIQ PO; -ATEN1TAB73 PO; +ATOR40TA16 PO; +COLL30T TOPICAL; +ECASA81 PO; +ENAL20TA PO; -ENAL20TA81 PO; +FURO40TA PO; -GEMF600 PO; +GLIP5TAB8 PO; -GLUCTAB PO; -HYDR-2768 PO; +IPRASOL INH; +METF1000 PO; +METO25TA3 PO; -NORC7.5T PO; +POTA-163 PO; -SAXA5TAB2 PO; +TIZA4CAP3 PO; +[UNRECOGNIZED DRUG - CODE] IV
[2017-05-21] MEDS ORDERED: RESP: ALBUTEROL 2.5 MG/IPRATROPIUM 0.5 MG NEB (PRN) ONE (12:29)
[2017-05-21] MEDS ORDERED: methylPREDNISolone SOD SUCC 125 MG/2 ML VIAL IV PUSH ONE (12:30)
[2017-05-21] MEDS: RESP: ALBUTEROL 2.5 MG/IPRATROPIUM 0.5 MG NEB (SCH) INH ×2 (12:40→12:41)
--- NOTE | 2017-05-21 13:02 | RADRPT ---
EXAM DATE/TIME: 05/21/2017 12:43 [facility] COMPARISON: CHEST SINGLE AP, May 17, 2017, 10:42. INDICATIONS : Shortness of breath. MEDICAL HISTORY : Cardiovascular disease. Hypertension Chronic obstructive pulmonary SURGICAL HISTORY : None. ENCOUNTER: Initial ACUITY: 4 - 6 days PAIN SCORE: 0/10 LOCATION: Bilateral chest FINDINGS: PICC line in good position. Cardiomegaly with moderate interstitial edema. Significant regression f rom 05/17/17. There is no pleural effusion. The portion of the bony skeleton visualized is unremarka ble. CONCLUSION: PICC line in good position. Significant increase in amount of congestive failure. Rosendo Muñoz MD FACR on May 21, 2017 at 12:59 Board Certified Radiologist. This report was verified electronically.
[2017-05-21] MEDS: SODIUM CHLORIDE 0.9% FLUSH 10 ML FLUSH IVF PRN (13:06)
[2017-05-21 13:17] LABS: AUTOMATED NEUTROPHIL # 8.6 TH/MM3 (1.8-7.7); BASOPHIL # 0.1 TH/MM3 (0-0.2); BASOPHIL % 1.4 % (0.0-2.0); EOSINOPHIL # 0.2 TH/MM3 (0-0.4); EOSINOPHIL % 2.3 % (0.0-4.0); HEMATOCRIT 39.9 % (39.0-51.0); LYMPH % 8.4 % (9.0-44.0); LYMPHOCYTE # 0.9 TH/MM3 (1.0-4.8); MEAN CELL VOLUME 83.8 FL (80.0-100.0); MEAN CORPUSCULAR HEMOGLOBIN 27.3 PG (27.0-34.0); MEAN CORPUSCULAR HGB CONC 32.6 % (32.0-36.0); MEAN PLATELET VOLUME 9.5 FL (7.0-11.0); MONO % 6.1 % (0.0-8.0); MONOCYTE # 0.6 TH/MM3 (0-0.9); NEUT % 81.8 % (16.0-70.0); PLATELET COUNT 350 TH/MM3 (150-450); RED BLOOD COUNT 4.76 MIL/MM3 (4.50-5.90); RED CELL DISTRIBUTION WIDTH 14.9 % (11.6-17.2); WHITE BLOOD COUNT 10.5 TH/MM3 (4.0-11.0)
[2017-05-21 13:31] LABS: INTERNATIONAL NORMALIZED RATIO 1.1 RATIO; PROTHROMBIN TIME - PATIENT 11.4 SEC (9.8-11.6)
[2017-05-21 13:34] LABS: ALBUMIN 2.2 GM/DL (3.4-5.0); ALT (GPT) 26 U/L (12-78); AST (GOT) 18 U/L (15-37); BICARBONATE 29.7 MEQ/L (21.0-32.0); BLOOD UREA NITROGEN 22 MG/DL (7-18); CALCIUM 8.8 MG/DL (8.5-10.1); CHLORIDE 106 MEQ/L (98-107); CREATININE 1.05 MG/DL (0.60-1.30); GLOMERULAR FILTRATION RATE 70 ML/MIN (>89); GLUCOSE,RANDOM 169 MG/DL (74-106); SODIUM (NA) 142 MEQ/L (136-145)
[2017-05-21 13:38] LABS: ALKALINE PHOSPHATASE 133 U/L (45-117); TOTAL BILIRUBIN ADULT 0.3 MG/DL (0.2-1.0); TOTAL PROTEIN 7.1 GM/DL (6.4-8.2); TROPONIN I 0.19 NG/ML (0.02-0.05)
[2017-05-21] MEDS ORDERED: FUROSEMIDE 40 MG/4 ML VIAL IV PUSH ONE (13:45)
[2017-05-21] MEDS ORDERED: ASPIRIN 81 MG CHEW TAB CHEW ONE (14:00)
--- NOTE | 2017-05-21 15:35 | PD ---
HPI Chief Complaint: Respiratory Distress Time Seen by Provider: 12:28 Travel History International Travel<30 days: No Contact w/Intl Traveler<30days: No Traveled to known affect area: No History of Present Illness HPI Patient is a 71-year-old male who comes in complaining of shortness of breath. He was here recently and told he needs to have a CABG. He was sent to rehabilitation to treat a MRSA infection in his legs to try and optimize him for surgery. He says over the past day he has gotten very short of breath. He denies chest pain or leg swelling. He has been coughing. He denies fevers. He has not been using Albuterol. He is receiving antibiotics at the rehab for his MRSA infections. He has required BIPAP in the past for CHF issues. PFSH Past Medical History Heart Rhythm Problems: No Cancer: No Cardiomyopathy: Yes Cardiovascular Problems: Yes (CHF, CAD) High Cholesterol: Yes Chest Pain: No Congestive Heart Failure: Yes COPD: Yes Diabetes: Yes Patient Takes Glucophage: Yes Diminished Hearing: No Endocrine: Yes Genitourinary: No Hypertension: Yes Immune Disorder: No Implanted Vascular Access Dvce: Yes (PICC RUE) Medical other: Yes (mrsa) Musculoskeletal: No Neurologic: No Psychiatric: No Reproductive: No Respiratory: Yes (COPD) Immunizations Current: Yes Influenza Vaccination: No Past Surgical History Other Surgery: Yes (SKIN CANCER REMOVAL SURGERY) Social History Alcohol Use: No Tobacco Use: No Substance Use: No Allergies-Medications (Allergen,Severity, Reaction): Coded Allergies: acetaminophen (Verified Allergy, Severe, Tachycardia throat swelling, ) Patient given dose had SOB and Tachycardia that passed, previously got dose 12/9 AM without any reaction, 12/10 AM experienced the SOB and Tachycardia. i asked pt about tylenol allergy and he said he gets throat swelling. codeine (Unverified Allergy, Severe, Rash, 05/21/17) propoxyphene (Unverified Allergy, Severe, Nausea/Vomiting, 05/21/17) Reported Meds & Prescriptions Reported Meds & Active Scripts Active Duoneb (Ipratropium-Albuterol Neb) 0.5-2.5 Mg/3 Ml Neb 1 Nebule INH Q4HR NEB PRN Potassium Chloride ER (Potassium Chloride) 20 Meq Tab 20 Meq PO DAILY Novolin 70-30 Inj (Insulin Human Isoph/Insulin Regular) 1,000 Unit/10 Ml Vial 15 Units SQ BID 30 Days Santyl (Collagenase) 250 Unit/Gram Oin 1 Applic TOPICAL DAILY Furosemide 40 Mg Tab 40 Mg PO DAILY Aspirin DR (Aspirin) 81 Mg Tabdr 81 Mg PO DAILY Metoprolol Tartrate 25 Mg Tab 25 Mg PO Q12HR Atorvastatin (Atorvastatin Calcium) 40 Mg Tab 40 Mg PO DAILY Vancomycin 1.5 Gram/250 ml-D5w (Vancomycin HCl in Dextrose 5 %) 1.5 Gram/250 Ml Plast..bag 1.5 Gm IV DAILY 30 Days Reported Tizanidine (Tizanidine HCl) 4 Mg Cap 4 Mg PO HS Glipizide 5 Mg Tab 2.5 Mg PO BIDAC Take 30 minutes before a meal Enalapril (Enalapril Maleate) 20 Mg Tab 20 Mg PO BID Metformin (Metformin HCl) 1,000 Mg Tab 1,000 Mg PO BIDPC Review of Systems Except as stated in HPI: all other systems reviewed are Neg General / Constitutional: No: Fever, Chills HENT: No: Headaches, Lightheadedness Cardiovascular: No: Chest Pain or Discomfort Respiratory: Positive: Cough, Shortness of Breath Gastrointestinal: No: Nausea, Vomiting Genitourinary: No: Dysuria Musculoskeletal: No: Edema Skin: No Rash, No Change in Pigmentation Neurologic: No: Weakness Physical Exam Narrative GENERAL: Awake and alert, in moderate respiratory distress. SKIN: Focused skin assessment warm/dry. HEAD: Atraumatic. Normocephalic. EYES: Pupils equal and round. No scleral icterus. ENT: Mucous membranes pink and moist. NECK: Trachea midline. No JVD. CARDIOVASCULAR: Regular rate and rhythm. No murmur appreciated. RESPIRATORY: Tachypnea, coarse breath sounds throughout the lungs. GASTROINTESTINAL: Abdomen soft, non-tender, nondistended. Hepatic and splenic margins not palpable. MUSCULOSKELETAL: No obvious deformities. No clubbing. No cyanosis. No edema. NEUROLOGICAL: Awake and alert. No obvious cranial nerve deficits. Motor grossly within normal limits. Normal speech. PSYCHIATRIC: Appropriate mood and affect; insight and judgment normal. Data Data Last Documented VS Vital Signs Date Time Temp Pulse Resp B/P (MAP) Pulse Ox O2 Delivery O2 Flow Rate FiO2 05/21/17 12:36 98 26 190/112 (138) 98 Non-Rebreather 15.00 Orders Orders Albuterol-Ipratropium Neb (Duoneb Neb) (05/21/17 12:29) Complete Blood Count With Diff (05/21/17 12:29) Comprehensive Metabolic Panel (05/21/17 12:29) B-Type Natriuretic Peptide (05/21/17 12:29) Act Partial Throm Time (Ptt) (05/21/17 12:29) Prothrombin Time / Inr (Pt) (05/21/17 12:29) Troponin I (05/21/17 12:29) Iv Access Insert/Monitor (05/21/17 12:29) Electrocardiogram (05/21/17 12:29) Ecg Monitoring (05/21/17 12:29) Oximetry (05/21/17 12:29) Oxygen Administration (05/21/17 12:29) Chest, Single Ap (05/21/17 12:29) Sodium Chloride 0.9% Flush (Ns Flush) (05/21/17 12:30) Methylprednisolone So Succ Inj (Solumedr (05/21/17 12:30) Albuterol-Ipratropium Neb (Duoneb Neb) (05/21/17 12:30) Furosemide Inj (Lasix Inj) (05/21/17 13:45) Aspirin Chew (Aspirin Chew) (05/21/17 14:00) Heparin Inj (Heparin Inj) (05/21/17 21:45) Heparin Inj (Heparin Inj) (05/21/17 21:45) Heparin-D5w 25,000 U/250 Ml (Heparin-D5w (05/21/17 15:45) Cbc No Diff, Includes Plts (05/24/17 06:00) Occult Blood (Hemoccult) Stool (05/21/17 15:33) Admit Order (Ed Use Only) (05/21/17 ) Labs Laboratory Tests Test 05/21/17 12:58 White Blood Count 10.5 TH/MM3 Red Blood Count 4.76 MIL/MM3 Hemoglobin 13.0 GM/DL Hematocrit 39.9 % Mean Corpuscular Volume 83.8 FL Mean Corpuscular Hemoglobin 27.3 PG Mean Corpuscular Hemoglobin Concent 32.6 % Red Cell Distribution Width 14.9 % Platelet Count 350 TH/MM3 Mean Platelet Volume 9.5 FL Neutrophils (%) (Auto) 81.8 % Lymphocytes (%) (Auto) 8.4 % Monocytes (%) (Auto) 6.1 % Eosinophils (%) (Auto) 2.3 % Basophils (%) (Auto) 1.4 % Neutrophils # (Auto) 8.6 TH/MM3 Lymphocytes # (Auto) 0.9 TH/MM3 Monocytes # (Auto) 0.6 TH/MM3 Eosinophils # (Auto) 0.2 TH/MM3 Basophils # (Auto) 0.1 TH/MM3 CBC Comment DIFF FINAL Differential Comment Prothrombin Time 11.4 SEC Prothromb Time International Ratio 1.1 RATIO Activated Partial Thromboplast Time 26.5 SEC Blood Urea Nitrogen 22 MG/DL Creatinine 1.05 MG/DL Random Glucose 169 MG/DL Total Protein 7.1 GM/DL Albumin 2.2 GM/DL Calcium Level 8.8 MG/DL Alkaline Phosphatase 133 U/L Aspartate Amino Transf (AST/SGOT) 18 U/L Alanine Aminotransferase (ALT/SGPT) 26 U/L Total Bilirubin 0.3 MG/DL Sodium Level 142 MEQ/L Potassium Level 3.8 MEQ/L Chloride Level 106 MEQ/L Carbon Dioxide Level 29.7 MEQ/L Anion Gap 6 MEQ/L Estimat Glomerular Filtration Rate 70 ML/MIN Troponin I 0.19 NG/ML B-Type Natriuretic Peptide 1205 PG/ML MDM Medical Decision Making Medical Screen Exam Complete: Yes Emergency Medical Condition: Yes Medical Record Reviewed: Yes Interpretation(s) ECG shows 1mm ST elevation in V 2 and V3 with deep T wave inversions in V4-V6 Differential Diagnosis COPD exacerbation vs CHF exacerbation vs pneumonia Narrative Course Patient is a 71 year old male who comes in complaining of SOB. He was in moderate respiratory distress with coarse breath sounds throughout his lungs. Given 3 duonebs and solumedrol. IV established, labs sent. Labs show a Troponin of 0.19. Patient had an elevated troponin 2 weeks ago, no labs done demonstrating return to normal. He reports feeling better after the duonebs. Now crackles can be heard at both lung bases. CXR shows CHF. Dr. Nick saw the patient, recommends Heparin and admission. Patient requires a CABG. Diagnosis Primary Impression: CHF (congestive heart failure) Qualified Codes: I50.9 - Heart failure, unspecified Additional Impression: COPD (chronic obstructive pulmonary disease) Qualified Codes: J44.1 - Chronic obstructive pulmonary disease with (acute) exacerbation Admitting Information Admitting Physician Requests: Admit Alba Lee MD May 21, 2017 15:35
[2017-05-21] MEDS ORDERED: DEXTROSE 50% IN WATER 50 ML VIAL(D50) IV PUSH PRN (16:15)
[2017-05-21] MEDS ORDERED: GLUCAGON 1 MG/ML VIAL OTHER PRN (16:15)
--- NOTE | 2017-05-21 16:37 | MB ---
cc: DARIN CLAROS DATE OF CONSULTATION 05/21/2017 HISTORY OF PRESENT ILLNESS Mr. Torres is a 71-year-old male with history of hypertension, diabetes mellitus and COPD. He presented with left lower extremity infection and generalized weakness. He was diagnosed with sepsis in late April. He subsequently underwent cardiac catheterization, showed severe multivessel coronary artery disease. He underwent cardiac catheterization on 05/[address] Melchor which showed 80% stenosis of the distal LAD, 99% stenosis of the circumflex and diffuse disease in the right coronary artery. CT Surgery consult was obtained for consideration of coronary bypass. His echocardiogram showed ejection fraction of 35%. Since the patient had sepsis due to infected diabetic foot ulcer, the surgery was postponed and he was discharged. He developed progressive dyspnea, but has not had any chest discomfort. PAST MEDICAL HISTORY Positive for - 1. Hypertension, 2. Diabetes. 3. COPD. 4. Melanoma surgery. MEDICATIONS 1. Vancomycin. 2. Albuterol. 3. Tizanidine. 4. Atorvastatin. 5. Metoprolol. 6. Enalapril. 7. Aspirin. 8. Potassium. 9. Furosemide. 10. Metformin. 11. Insulin. 12. Glipizide. 13. Collagenase. SOCIAL HISTORY The patient smoked until recently. Does not drink alcohol. FAMILY HISTORY Negative for heart disease. REVIEW OF SYSTEMS Otherwise negative. PHYSICAL EXAMINATION VITAL SIGNS: Blood pressure 190/112, pulse 98 and regular. HEENT: Negative. NECK: 2+ carotid upstrokes. No bruits. LUNGS: With a few rhonchi. HEART: Regular with a 1/6 systolic murmur, no gallop. ABDOMEN: Soft. No bruits. EXTREMITIES: Trace edema. 2+ distal pulses. NEUROLOGIC: Grossly nonfocal. EKG Showed sinus rhythm and diffuse ST changes. LABS Hemoglobin 13.0. Potassium 3.8, creatinine 1.0. ALT and AST normal. Troponin 0.19. BNP 1205. DIAGNOSES 1. Dyspnea. 2. Congestive heart failure. 3. Severe multivessel coronary disease. 4. Ischemic cardiomyopathy with moderate left ventricular systolic dysfunction. 5. History of sepsis secondary to infected diabetic ulcer left leg. 6. Peripheral vascular disease. 7. Diabetes mellitus. 8. Hypertension. DISPOSITION Mr. Torres presented with increased dyspnea. His troponin is slightly elevated. He had diffuse ST-T changes. He will be admitted to the hospital for further management. I recommend to reconsult Dr. Alfaro, CT surgery, to reassess him for bypass. He will also need reevaluation of his peripheral vascular disease and ID evaluation. The plan was discussed with the patient. MD KWAKU Orr/SSB /2:45 PM /4:03 PM MTDJ Luis
[2017-05-21] MEDS: INSULIN ASPART SUPPLEMENTAL SCALE SQ SCH ×2 (17:00→20:51)
[2017-05-21] MEDS ORDERED: FUROSEMIDE 40 MG/4 ML VIAL IVP SCH (18:00)
[2017-05-21] MEDS: RESP: ALBUTEROL 2.5 MG/IPRATROPIUM 0.5 MG NEB (SCH) NEB (18:55)
[2017-05-21] MEDS: HEPARIN-D5W 25,000 U/250 ML 250 ML IV PRN (19:31)
[2017-05-21] MEDS: POTASSIUM CHLORIDE 10 MEQ CONTROLLED RELEASE TAB PO SCH (20:44)
[2017-05-21] MEDS: ENALAPRIL MALEATE 10 MG TAB PO SCH (20:45)
[2017-05-21] MEDS: METOPROLOL TARTRATE 25 MG TAB PO SCH (20:46)
[2017-05-21] MEDS: INSULIN HUMAN NPH/R 70/30 1,000 UNITS/10 ML VIAL SQ SCH (20:52)
[2017-05-21] MEDS ORDERED: HEPARIN SODIUM - IV 10,000 UNITS/10 ML VIAL IV PUSH PRN (21:45)
--- NOTE | 2017-05-21 22:27 | HHI.HP ---
[facility] Chito Wahl MD Admission Diagnosis CHF, CAD, elevated troponin, COPD Diagnoses: Travel History International Travel<30 Days: No Contact w/Intl Traveler <30 Da: No Traveled to Known Affected Are: No History of Present Illness 71-year-old male currently undergoing vancomycin infusions for osteomyelitis of the left lateral malleolus secondary to MRSA and group A strep infections since the emergency department complaining of shortness of breath. He states his shortness of breath has been worsening over the past several days and he has a nonproductive cough. Patient's past medical history significant for hypertension, diabetes, COPD and hyperlipidemia. He underwent cardiac catheterization on 05/[address] casarez which showed 80% stenosis of the distal LAD, 99% stenosis of the circumflex and diffuse disease in the right coronary artery. Echo showed an EF of 35%. Patient would benefit from CABG however surgery was postponed secondary to active osteomyelitis. Review of Systems Denies fever or chills Denies blurry vision, otorrhea, rhinorrhea Denies sore throat and cough No chest pain, palpitations, positive shortness of breath No abdominal pain Denies constipation/diarrhea/nausea/vomiting Denies muscle pain/weakness No rashes Past Family Social History Past Medical History Osteomyelitis of the left lateral malleolus CAD PVD Hypertension Diabetes COPD Hyperlipidemia Past Surgical History Excision of right cheek melanoma Cardiac catheterization in April of this year Reported Medications Reported Meds & Active Scripts Active Duoneb (Ipratropium-Albuterol Neb) 0.5-2.5 Mg/3 Ml Neb 1 Nebule INH Q4HR NEB PRN Potassium Chloride ER (Potassium Chloride) 20 Meq Tab 20 Meq PO DAILY Novolin 70-30 Inj (Insulin Human Isoph/Insulin Regular) 1,000 Unit/10 Ml Vial 15 Units SQ BID 30 Days Santyl (Collagenase) 250 Unit/Gram Oin 1 Applic TOPICAL DAILY Furosemide 40 Mg Tab 40 Mg PO DAILY Aspirin DR (Aspirin) 81 Mg Tabdr 81 Mg PO DAILY Metoprolol Tartrate 25 Mg Tab 25 Mg PO Q12HR Atorvastatin (Atorvastatin Calcium) 40 Mg Tab 40 Mg PO DAILY Vancomycin 1.5 Gram/250 ml-D5w (Vancomycin HCl in Dextrose 5 %) 1.5 Gram/250 Ml Plast..bag 1.5 Gm IV DAILY 30 Days Reported Tizanidine (Tizanidine HCl) 4 Mg Cap 4 Mg PO HS Glipizide 5 Mg Tab 2.5 Mg PO BIDAC Take 30 minutes before a meal Enalapril (Enalapril Maleate) 20 Mg Tab 20 Mg PO BID Metformin (Metformin HCl) 1,000 Mg Tab 1,000 Mg PO BIDPC Allergies: Coded Allergies: acetaminophen (Verified Allergy, Severe, Tachycardia throat swelling, ) Patient given dose had SOB and Tachycardia that passed, previously got dose 12 AM without any reaction, 12 AM experienced the SOB and Tachycardia. i asked pt about tylenol allergy and he said he gets throat swelling. codeine (Unverified Allergy, Severe, Rash, 05/21/17) propoxyphene (Unverified Allergy, Severe, Nausea/Vomiting, 05/21/17) Family History Father with CAD Social History Quit tobacco on 05/07, 2 packs per day 40 years. Quit alcohol in 1974. Denies illicit drugs. Physical Exam Vital Signs Vital Signs Date Time Temp Pulse Resp B/P (MAP) Pulse Ox O2 Delivery O2 Flow Rate FiO2 05/21/17 20:37 98.6 91 18 121/69 (86) 97 05/21/17 19:07 94 Nasal Cannula 3.00 05/21/17 17:30 05/21/17 17:30 97.8 88 22 129/70 (89) 93 05/21/17 16:38 79 25 137/81 (99) 95 Nasal Cannula 3.00 05/21/17 16:20 95 Nasal Cannula 3.00 05/21/17 12:36 98 26 190/112 (138) 98 Non-Rebreather 15.00 05/21/17 12:35 31 98 Non-Rebreather 15.00 05/21/17 12:35 97 Non-Rebreather 15.00 Physical Exam GENERAL: male lying in bed SKIN: Black ulceration along the left lateral malleolus, multiple lesions that are black and nondraining on the toes of the right lower extremity. Minimal erythema. HEAD: Atraumatic. Normocephalic. No temporal or scalp tenderness. EYES: Pupils equal round and reactive. Extraocular motions intact. No scleral icterus. No injection or drainage. ENT: Nose without bleeding, purulent drainage or septal hematoma. Throat without erythema, tonsillar hypertrophy or exudate. Uvula midline. Airway patent. NECK: Trachea midline. No JVD or lymphadenopathy. Supple, nontender, no meningeal signs. CARDIOVASCULAR: Regular rate and rhythm without murmurs, gallops, or rubs. RESPIRATORY: Clear to auscultation. Breath sounds equal bilaterally. No wheezes , rales, or rhonchi. GASTROINTESTINAL: Abdomen soft, non-tender, nondistended. No hepato-splenomegaly , or palpable masses. No guarding. MUSCULOSKELETAL: Extremities without clubbing, cyanosis, or edema. No joint tenderness, effusion, or edema noted. No calf tenderness. NEUROLOGICAL: Awake and alert. Cranial nerves II through XII intact. Motor and sensory grossly within normal limits. Normal speech. Laboratory Laboratory Tests Test 05/21/17 12:58 05/21/17 19:35 White Blood Count 10.5 Red Blood Count 4.76 Hemoglobin 13.0 Hematocrit 39.9 Mean Corpuscular Volume 83.8 Mean Corpuscular Hemoglobin 27.3 Mean Corpuscular Hemoglobin Concent 32.6 Red Cell Distribution Width 14.9 Platelet Count 350 Mean Platelet Volume 9.5 Neutrophils (%) (Auto) 81.8 Lymphocytes (%) (Auto) 8.4 Monocytes (%) (Auto) 6.1 Eosinophils (%) (Auto) 2.3 Basophils (%) (Auto) 1.4 Neutrophils # (Auto) 8.6 Lymphocytes # (Auto) 0.9 Monocytes # (Auto) 0.6 Eosinophils # (Auto) 0.2 Basophils # (Auto) 0.1 CBC Comment DIFF FINAL Differential Comment Prothrombin Time 11.4 Prothromb Time International Ratio 1.1 Activated Partial Thromboplast Time 26.5 27.0 Blood Urea Nitrogen 22 Creatinine 1.05 Random Glucose 169 Total Protein 7.1 Albumin 2.2 Calcium Level 8.8 Alkaline Phosphatase 133 Aspartate Amino Transf (AST/SGOT) 18 Alanine Aminotransferase (ALT/SGPT) 26 Total Bilirubin 0.3 Sodium Level 142 Potassium Level 3.8 Chloride Level 106 Carbon Dioxide Level 29.7 Anion Gap 6 Estimat Glomerular Filtration Rate 70 Troponin I 0.19 0.94 B-Type Natriuretic Peptide 1205 Result Diagram: 05/21/17 1258 05/21/17 1258 Caprini VTE Risk Assessment Caprini VTE Risk Assessment: Mod/High Risk (score >= 2) Caprini Risk Assessment Model Point Value = 1 Point Value = 2 Point Value = 3 Point Value = 5 Age 41-60 Minor surgery BMI > 25 kg/m2 Swollen legs Varicose veins or History of unexplained or recurrent spontaneous Oral contraceptives or hormone replacement Sepsis (< 1 month) Serious lung disease, including pneumonia (< 1 month) Abnormal pulmonary function Acute myocardial infarction Congestive heart failure (< 1 month) History of inflammatory bowel disease Medical patient at bed rest Age 61-74 Arthroscopic surgery Major open surgery (> 45 min) Laparoscopic surgery (> 45 min) Malignancy Confined to bed (> 72 hours) Immobilizing plaster cast Central venous access Age >= 75 History of VTE Family history of VTE Factor V Leiden Prothrombin [id number] Lupus anticoagulant Anticardiolipin antibodies Elevated serum homocysteine Heparin-induced thrombocytopenia Other congenital or acquired thrombophilia Stroke (< 1 month) Elective arthroplasty Hip, pelvis, or leg fracture Acute spinal cord injury (< 1 month) Prophylaxis Regimen Total Risk Factor Score Risk Level Prophylaxis Regimen 0-1 Low Early ambulation 2 Moderate Order ONE of the following: *Sequential Compression Device (SCD) *Heparin 5000 units SQ BID 3-4 Higher Order ONE of the following medications: *Heparin 5000 units SQ TID *Enoxaparin/Lovenox 40 mg SQ daily (WT < 150 kg, CrCl > 30 mL/min) *Enoxaparin/Lovenox 30 mg SQ daily (WT < 150 kg, CrCl > 10-29 mL/min) *Enoxaparin/Lovenox 30 mg SQ BID (WT < 150 kg, CrCl > 30 mL/min) AND/OR *Sequential Compression Device (SCD) 5 or more Highest Order ONE of the following medications: *Heparin 5000 units SQ TID (Preferred with Epidurals) *Enoxaparin/Lovenox 40 mg SQ daily (WT < 150 kg, CrCl > 30 mL/min) *Enoxaparin/Lovenox 30 mg SQ daily (WT < 150 kg, CrCl > 10-29 mL/min) *Enoxaparin/Lovenox 30 mg SQ BID (WT < 150 kg, CrCl > 30 mL/min) AND *Sequential Compression Device (SCD) Assessment and Plan Assessment and Plan Assessment/plan: 1. CAD/NSTEMI Status post cardiac catheterization with multivessel disease on 05/09 Cardiology consulted, appreciate recommendations Cardiothoracic surgery consulted for evaluation of possible CABG Troponin 0.94, EKG showed sinus rhythm with first-degree AV block, reviewed by ok Heparin drip 2. Osteomyelitis of the left lateral malleolus Wound cultures positive for MRSA, GAS Patient may benefit from revascularization of the left lower extremity, seen by vascular surgery on 05/15. Vascular surgery re-consulted to evaluate for possible intervention. Continue vancomycin Infectious disease consulted, appreciate recommendations 3. CHF/SOB/COPD Echo showed an EF of 35% BNP 1205 IV Lasix, Solu-Medrol DuoNebs 4. Diabetes mellitus Holding home oral anti-hyperglycemics SSI Monitor blood glucose 5. Hypertension/hyperlipidemia Continue home medications FEN NPO Electrolytes: monitor and replete prn Heparin ggt Physician Certification 2 Midnight Certification Type: Admission for Inpatient Services Order for Inpatient Services The services are ordered in accordance with Medicare regulations or non- Medicare payer requirements, as applicable. In the case of services not specified as inpatient-only, they are appropriately provided as inpatient services in accordance with the 2-midnight benchmark. Estimated LOS (days): 2 2 days is the estimated time the patient will need to remain in the hospital, assuming treatment plan goals are met and no additional complications. Post-Hospital Plan: Not yet determined Kylie Weiss MD May 21, 2017 22:27
[2017-05-21] MEDS ORDERED: Vancomycin Consult Pharmacy 1 EA OTHER SCH (22:30)
[2017-05-22] VITALS (32 sets, daily range): BP systolic 118–146; BP diastolic 60–81; PULSE 64–127; RESP 16–20; TEMP 96.4–99.5; O2SAT 92–99
[2017-05-22] MEDS ORDERED: VANCOMYCIN INJ 1,750 MG in SODIUM CHLORID 0.9% 500 ML INJ 500 ML IV ONE ×2
[2017-05-22] MEDS: HEPARIN SODIUM - IV 10,000 UNITS/10 ML VIAL IV PUSH PRN (02:30)
[2017-05-22 06:00] LABS: ALBUMIN 2.1 GM/DL (3.4-5.0); ALT (GPT) 22 U/L (12-78); AST (GOT) 20 U/L (15-37); BICARBONATE 27.4 MEQ/L (21.0-32.0); BLOOD UREA NITROGEN 29 MG/DL (7-18); CALCIUM 8.4 MG/DL (8.5-10.1); CHLORIDE 106 MEQ/L (98-107); CREATININE 0.97 MG/DL (0.60-1.30); GLOMERULAR FILTRATION RATE 77 ML/MIN (>89); GLUCOSE,RANDOM 144 MG/DL (74-106); SODIUM (NA) 141 MEQ/L (136-145)
[2017-05-22 06:02] LABS: ALKALINE PHOSPHATASE 123 U/L (45-117); TOTAL BILIRUBIN ADULT 0.3 MG/DL (0.2-1.0); TOTAL PROTEIN 6.7 GM/DL (6.4-8.2)
--- NOTE | 2017-05-22 07:51 | PD.CARD.PN ---
Subjective Subjective Remarks The patient reports he became suddenly short of breath yesterday. He denies any chest pain or pain with breathing. He received IV Lasix and reports good urine output. He reports his breathing is nearly back to normal today. He denies having any leg swelling since previous discharge. Objective Medications Current Medications Medications (Trade) Dose Ordered Sig/Tatyana Route Start Time Stop Time Status Last Admin (NS Flush) 2 ml UNSCH PRN IVF 05/21/17 12:30 05/21/17 13:06 (Heparin Inj) 5,000 units UNSCH PRN IV PUSH 05/21/17 21:45 (Heparin Inj) 2,500 units UNSCH PRN IV PUSH 05/21/17 21:45 05/22/17 02:30 Heparin Sodium/ Dextrose 250 ml @ 10 mls/hr TITRATE PRN IV 05/21/17 15:45 05/21/17 19:31 (KCl) 10 meq BID PO 05/21/17 21:00 05/21/17 20:44 (D50w (Vial) Inj) 50 ml UNSCH PRN IV PUSH 05/21/17 16:15 (Glucagon Inj) 1 mg UNSCH PRN OTHER 05/21/17 16:15 (NovoLOG SUPPLEMENTAL SCALE) 1 ACHS SLIDING SCALE SQ 05/21/17 17:00 05/21/17 20:51 (Ecotrin Ec) 81 mg DAILY PO 05/22/17 09:00 (Lipitor) 40 mg DAILY PO 05/22/17 09:00 (Vasotec) 20 mg BID PO 05/21/17 21:00 05/21/17 20:45 (NovoLIN 70/30 INJ) 15 units BID SQ 05/21/17 21:00 05/21/17 20:52 (Lopressor) 25 mg Q12HR PO 05/21/17 21:00 05/21/17 20:46 (Duoneb Neb) 1 ampule QID NEB NEB 05/21/17 20:00 05/21/17 18:55 (Duoneb Neb) 1 ampule Q2HR NEB PRN NEB 05/21/17 16:15 (SoluMEDROL INJ) 40 mg Q8HR IV PUSH 05/22/17 08:00 (Lasix) 40 mg DAILY PO 05/22/17 09:00 Pharmacy Profile Note 0 ml @ 0 mls/hr UNSCH OTHER 05/21/17 22:30 Vital Signs / I&O Vital Signs Date Time Temp Pulse Resp B/P (MAP) Pulse Ox O2 Delivery O2 Flow Rate FiO2 05/22/17 06:00 68 05/22/17 05:00 67 05/22/17 04:11 98.7 71 16 138/72 (94) 98 05/22/17 04:00 72 05/22/17 03:00 70 05/22/17 02:00 69 05/22/17 01:00 67 05/22/17 00:20 70 05/22/17 00:04 96.4 72 18 126/60 (82) 99 05/21/17 23:00 76 05/21/17 22:00 86 05/21/17 21:00 93 05/21/17 20:37 98.6 91 18 121/69 (86) 97 05/21/17 20:00 90 05/21/17 19:07 94 Nasal Cannula 3.00 05/21/17 17:30 05/21/17 17:30 97.8 88 22 129/70 (89) 93 05/21/17 16:38 79 25 137/81 (99) 95 Nasal Cannula 3.00 05/21/17 16:20 95 Nasal Cannula 3.00 05/21/17 12:36 98 26 190/112 (138) 98 Non-Rebreather 15.00 05/21/17 12:35 31 98 Non-Rebreather 15.00 05/21/17 12:35 97 Non-Rebreather 15.00 I/O 05/21/17 05/21/17 05/21/17 05/22/17 05/22/17 05/22/17 07:00 15:00 23:00 07:00 15:00 23:00 Intake Total 240 ml 820 ml Output Total 600 ml 1200 ml Balance -360 ml -380 ml Intake Oral 240 ml 320 ml IV Total 500 ml Output Urine Total 600 ml 1200 ml # Voids 1 # Bowel Movements 0 Physical Exam GENERAL: Well-developed well-nourished. In no acute distress. NECK: No carotid bruits. No JVD. CARDIOVASCULAR: Regular rate and rhythm. No murmur appreciated. RESPIRATORY: No accessory muscle use. Crackles present bilaterally. MUSCULOSKELETAL: No clubbing or cyanosis. No edema. NEUROLOGICAL: Awake and alert. Normal speech. Laboratory Laboratory Tests Test 05/21/17 12:58 05/21/17 19:35 05/22/17 01:35 05/22/17 04:20 White Blood Count 10.5 TH/MM3 Red Blood Count 4.76 MIL/MM3 Hemoglobin 13.0 GM/DL Hematocrit 39.9 % Mean Corpuscular Volume 83.8 FL Mean Corpuscular Hemoglobin 27.3 PG Mean Corpuscular Hemoglobin Concent 32.6 % Red Cell Distribution Width 14.9 % Platelet Count 350 TH/MM3 Mean Platelet Volume 9.5 FL Neutrophils (%) (Auto) 81.8 % Lymphocytes (%) (Auto) 8.4 % Monocytes (%) (Auto) 6.1 % Eosinophils (%) (Auto) 2.3 % Basophils (%) (Auto) 1.4 % Neutrophils # (Auto) 8.6 TH/MM3 Lymphocytes # (Auto) 0.9 TH/MM3 Monocytes # (Auto) 0.6 TH/MM3 Eosinophils # (Auto) 0.2 TH/MM3 Basophils # (Auto) 0.1 TH/MM3 CBC Comment DIFF FINAL Differential Comment Prothrombin Time 11.4 SEC Prothromb Time International Ratio 1.1 RATIO Activated Partial Thromboplast Time 26.5 SEC 27.0 SEC 37.4 SEC Blood Urea Nitrogen 22 MG/DL 29 MG/DL Creatinine 1.05 MG/DL 0.97 MG/DL Random Glucose 169 MG/DL 144 MG/DL Total Protein 7.1 GM/DL 6.7 GM/DL Albumin 2.2 GM/DL 2.1 GM/DL Calcium Level 8.8 MG/DL 8.4 MG/DL Alkaline Phosphatase 133 U/L 123 U/L Aspartate Amino Transf (AST/SGOT) 18 U/L 20 U/L Alanine Aminotransferase (ALT/SGPT) 26 U/L 22 U/L Total Bilirubin 0.3 MG/DL 0.3 MG/DL Sodium Level 142 MEQ/L 141 MEQ/L Potassium Level 3.8 MEQ/L 3.8 MEQ/L Chloride Level 106 MEQ/L 106 MEQ/L Carbon Dioxide Level 29.7 MEQ/L 27.4 MEQ/L Anion Gap 6 MEQ/L 8 MEQ/L Estimat Glomerular Filtration Rate 70 ML/MIN 77 ML/MIN Troponin I 0.19 NG/ML 0.94 NG/ML 1.37 NG/ML B-Type Natriuretic Peptide 1205 PG/ML Imaging Last 24 hours Impressions Chest X-Ray 05/21/17 1229 Signed Impressions: Service Date/Time: Sunday, May 21, 2017 12:43 - CONCLUSION: PICC line in good position. Significant increase in amount of congestive failure. Rosendo Muñoz MD FACR Assessment and Plan Assessment and Plan 71-year-old male who with a recent hospitalization for osteomyelitis of the left lateral malleolus, NSTEMI with multivessel CAD recommended for CABG after treatment for osteomyelitis, peripheral vascular disease with LLE PCI, cardiomyopathy with EF 35-40% who presented with shortness of breath Acute exacerbation of chronic systolic CHF: Improving with IV Lasix, continue monitor I's and O's. NSTEMI/CAD: Catheterization 05/09 showed 80% stenosis of the distal LAD, 99% stenosis of the circumflex and diffuse disease in the right coronary artery. CABG was recommended and was placed on hold secondary to infection. CT surgery has been reconsulted. LLE osteomyelitis/PVD: S/P FITTINGS FINISHER of the left external iliac artery and orbital arthrectomy and balloon angioplasty of the left peroneal artery. On IV antibiotics with ID on board. Solomon Henderson May 22, 2017 07:51
[2017-05-22] MEDS: INSULIN ASPART SUPPLEMENTAL SCALE SQ SCH ×4 (08:00→20:12)
[2017-05-22] MEDS: RESP: ALBUTEROL 2.5 MG/IPRATROPIUM 0.5 MG NEB (SCH) NEB ×4 (08:16→21:10)
[2017-05-22] MEDS: SODIUM CHLORIDE 0.9% FLUSH 10 ML FLUSH IVF PRN ×2 (08:59→20:08)
[2017-05-22] MEDS ORDERED: FUROSEMIDE 40 MG TAB PO SCH (09:00)
[2017-05-22] MEDS ORDERED: VANCOMYCIN INJ 1,500 MG in SODIUM CHLORID 0.9% 500 ML INJ 500 ML IV SCH (09:00)
[2017-05-22] MEDS: FUROSEMIDE 40 MG/4 ML VIAL IV PUSH SCH ×2 (09:00→17:22)
[2017-05-22] MEDS: ENALAPRIL MALEATE 10 MG TAB PO SCH ×2 (09:00→20:08)
[2017-05-22] MEDS: ASPIRIN EC 81 MG TABEC PO SCH (09:00)
[2017-05-22] MEDS: POTASSIUM CHLORIDE 10 MEQ CONTROLLED RELEASE TAB PO SCH ×2 (09:00→20:08)
[2017-05-22] MEDS: METOPROLOL TARTRATE 25 MG TAB PO SCH ×2 (09:01→20:08)
[2017-05-22] MEDS: ATORVASTATIN 40 MG TAB PO SCH (09:01)
[2017-05-22] MEDS: methylPREDNISolone SOD SUCC 40 MG/1 ML VIAL IV PUSH SCH ×3 (09:07→21:09)
--- NOTE | 2017-05-22 11:30 | PD.CAR.PN ---
CVT Progress Note Subjective/Hospital Course: 71/ male / known to our service that initially presented with complaint of worsening infection in his left ankle that he has had off and on for the last 3 weeks. He had a open wound on the outside aspect of the ankle. He has longstanding history of diabetes on insulin. He was also been complaining of some increased weakness and fatigue for the past 6 months. He said he had normally ambulated unassisted, was having more difficulty getting around due to the weakness and discomfort. Incidentally on ED admission 05/04 , his EKG some ST elevation in lead II only, however, he did have some T-wave depression in the lateral leads, some poor R-wave progression, no prior EKG to compare. He then had a troponin elevated at 1.26. He was ruled in for non-STEMI. He was taken then to the lift slab operator by Dr. Melchor showed the LAD approximately 20% stenosis, moderate sized diagonal branches, 40% proximal stenosis, the LAD beyond the takeoff of the diagonal was 90% stenosed, the second diagonal branch had some luminal irregularities, the LAD distal had 80% lesion, left circ had a 99% subtotal occlusion and the right coronary artery had heavily calcified subtotal occlusion, ejection fraction approximately 35%. S/p left external iliac RULING MACHINE OPERATOR (good common femoral artery pulse) and s/p atherectomy/RULING MACHINE OPERATOR left posterior tibial artery. anterior tibial artery occluded. Doppler PT and AT. No vascular surgical options given poor runoff with small vessels (all distal disease). . We were consulted at his last admission to evaluate for coronary artery bypass grafting. Pt was followed closely , but was very deconditioned and was still being treated for left ankle wound infection. It was felt at that time, that the pt needed to be discharged to SNF, for aggressive PT/ OT and had a outpt f/u with Dr Alfaro in 2-3 after discharge to re-eval for surgery . He was discharged to SNF 05/17 PAST MEDICAL HISTORY: Hypertension, Uncontrolled diabetes mellitus, COPD with ongoing tobacco use , severe PAD , Excision of melanoma from the face, chronic wound on his left ankle for about 3 weeks. 05/22 pt was re-admitted to ED , worsening shortness of breath and non-productive cough , CXR showed pulm edema , BNP 1200 Trop 1.26, NSTEMI , pt has been seen and eval by Dr Wright and Dr Alfaro agree with aggressive diuresis, and will eval for surgery early next week , he still has a left ankle wound that needs wound care management , and continued ABX , last PFT showed FEV1 1.10 Objective: GENERAL: SKIN: Warm and dry. HEAD: Normocephalic. EYES: No scleral icterus. No injection or drainage. NECK: Supple, trachea midline. No JVD or lymphadenopathy. CARDIOVASCULAR: Regular rate and rhythm without murmurs, gallops, or rubs. , + JVD RESPIRATORY: Breath sounds equal bilaterally. No accessory muscle use. coarse brath sounds on left, bibasilar crackles GASTROINTESTINAL: Abdomen soft, non-tender, nondistended. MUSCULOSKELETAL: No cyanosis, or edema. BACK: Nontender without obvious deformity. No CVA tenderness. EXT: 2X2 cm left lateral ankle wound with dry escar Vital Signs Date Time Temp Pulse Resp B/P (MAP) Pulse Ox O2 Delivery O2 Flow Rate FiO2 05/22/17 08:19 94 Nasal Cannula 2.00 05/22/17 07:52 98.4 72 18 146/80 (102) 94 05/22/17 06:00 68 05/22/17 05:00 67 05/22/17 04:11 98.7 71 16 138/72 (94) 98 05/22/17 04:00 72 05/22/17 03:00 70 05/22/17 02:00 69 05/22/17 01:00 67 05/22/17 00:20 70 05/22/17 00:04 96.4 72 18 126/60 (82) 99 05/21/17 23:00 76 05/21/17 22:00 86 05/21/17 21:00 93 05/21/17 20:37 98.6 91 18 121/69 (86) 97 05/21/17 20:00 90 05/21/17 19:07 94 Nasal Cannula 3.00 05/21/17 17:30 05/21/17 17:30 97.8 88 22 129/70 (89) 93 05/21/17 16:38 79 25 137/81 (99) 95 Nasal Cannula 3.00 05/21/17 16:20 95 Nasal Cannula 3.00 05/21/17 12:36 98 26 190/112 (138) 98 Non-Rebreather 15.00 05/21/17 12:35 31 98 Non-Rebreather 15.00 05/21/17 12:35 97 Non-Rebreather 15.00 Labs: Laboratory Tests Test 05/22/17 01:35 05/22/17 04:20 05/22/17 08:10 Activated Partial Thromboplast Time 37.4 SEC (24.3-30.1) 51.6 SEC (24.3-30.1) Troponin I 1.37 NG/ML (0.02-0.05) Blood Urea Nitrogen 29 MG/DL (7-18) Creatinine 0.97 MG/DL (0.60-1.30) Random Glucose 144 MG/DL (74-106) Total Protein 6.7 GM/DL (6.4-8.2) Albumin 2.1 GM/DL (3.4-5.0) Calcium Level 8.4 MG/DL (8.5-10.1) Alkaline Phosphatase 123 U/L (45-117) Aspartate Amino Transf (AST/SGOT) 20 U/L (15-37) Alanine Aminotransferase (ALT/SGPT) 22 U/L (12-78) Total Bilirubin 0.3 MG/DL (0.2-1.0) Sodium Level 141 MEQ/L (136-145) Potassium Level 3.8 MEQ/L (3.5-5.1) Chloride Level 106 MEQ/L (98-107) Carbon Dioxide Level 27.4 MEQ/L (21.0-32.0) Anion Gap 8 MEQ/L (5-15) Estimat Glomerular Filtration Rate 77 ML/MIN (>89) Result Diagram: 05/21/17 1258 05/22/17 0420 Telemetry: NSR (1) Coronary artery disease (2) COPD (chronic obstructive pulmonary disease) (3) CHF (congestive heart failure) Problem Qualifiers (1) COPD (chronic obstructive pulmonary disease): Qualified Codes: J44.1 - Chronic obstructive pulmonary disease with (acute) exacerbation (2) CHF (congestive heart failure): Qualified Codes: I50.9 - Heart failure, unspecified Teresa Peterson May 22, 2017 11:30
[2017-05-22] MEDS ORDERED: Vancomycin Consult Pharmacy 1 EA OTHER SCH (11:45)
--- NOTE | 2017-05-22 12:26 | ECHRPT ---
Indication: HEART FAILURE CONCLUSIONS Mildly dilated left ventricle. Wall thickness is normal. The left ventricular systolic function is severely reduced with an estimated ejection fraction of 25 %. Global hypokinesis, most pronounced in the apical region. Moderate mitral annular calcification is present. Trace mitral valve regurgitation. Structurally normal tricuspid valve. Trace tricuspid regurgitation. A moderate left sided pleural effusion is noted. There is a trivial pericardial effusion present. BP: 138 / 72 HR: 71 Rhythm: Technical Quality:Good FINDINGS LEFT VENTRICLE Mildly dilated left ventricle. Wall thickness is normal. The left ventricular systolic function is severely reduced with an estimated ejection fraction of 25 -30%. Global hypokinesis, most pronounced in the apical region. RIGHT VENTRICLE Normal right ventricular size and systolic function. LEFT ATRIUM The left atrial size is normal. RIGHT ATRIUM The right atrial size is normal. ATRIAL SEPTUM Normal atrial septal thickness without atrial level shunting by limited color doppler interrogation. AORTA The aortic root and proximal ascending aorta are normal in size on limited imaging. MITRAL VALVE Moderate mitral annular calcification is present. Trace mitral valve regurgitation. AORTIC VALVE Trileaflet aortic valve. No aortic valve stenosis or regurgitation. TRICUSPID VALVE Structurally normal tricuspid valve. Trace tricuspid regurgitation. PULMONARY VALVE The pulmonary valve is not well visualized. VESSELS The inferior vena cava is normal in size. PERICARDIUM A moderate left sided pleural effusion is noted. There is a trivial pericardial effusion present. Amauri Almanza MD (Electronically Signed) Final Date:22 May 2017 12:25
[2017-05-22] MEDS: INSULIN HUMAN NPH/R 70/30 1,000 UNITS/10 ML VIAL SQ SCH ×2 (13:17→20:11)
[2017-05-22] MEDS: HEPARIN-D5W 25,000 U/250 ML 250 ML IV PRN (13:17)
--- NOTE | 2017-05-22 13:29 | MB ---
cc: ADITI CALLES MD,ASHLEIGH Vega MD DATE OF CONSULTATION 05/22/[address] Ashleigh Weiss REASON FOR CONSULTATION Osteomyelitis with MRSA and group A strep. The patient is on a vancomycin infusion as an outpatient. HISTORY OF PRESENT ILLNESS This is a 71-year-old white male with known osteomyelitis involving the left lateral malleolus. He was recently admitted to the hospital in April and he was discharged on May 17 with IV vancomycin for treatment of osteomyelitis due to MRSA and group B strep. He also underwent catheterization procedure of the left lower extremity. The patient underwent balloon angioplasty of the left external iliac artery and angioplasty and atherectomy in the posterior tibial and posterior tibial peroneal trunk. The patient was admitted to the hospital on May 21 because of respiratory distress. This consultation is requested to address the osteomyelitis of his left lower extremity. The patient has no complaints except for shortness of breath. He denies pain in his ankle. He has no fever, chills, nausea or other symptoms. He denies chest pain. The patient is known to have coronary artery disease and was noted to have sustained an STEMI when he was evaluated by cardiology on the last hospitalization. The patient has a PICC line in the right upper extremity. PAST MEDICAL HISTORY 1. Congestive heart failure 2. COPD 3. Diabetes mellitus 4. Hypertension 5. Coronary artery disease 6. Cardiomyopathy 7. Hypercholesteremia ALLERGIES ACETAMINOPHEN, CODEINE, PROPOXYPHENE. MEDICATIONS 1. Lasix 2. Lipitor 3. Aspirin 4. Methylprednisolone 5. Heparin 6. Vasotec 7. Insulin 8. Lopressor 9. DuoNeb SOCIAL HISTORY No tobacco. No alcohol. No illicit drugs. FAMILY HISTORY Noncontributory REVIEW OF SYSTEMS Negative except for shortness of breath. PHYSICAL EXAMINATION This is a slender well-developed male in no acute distress. VITAL SIGNS: Temperature 98.4, BP 146/80, respirations 18, heart rate 72. HEENT: Head atraumatic. Extraocular movements grossly intact, pupils reactive to light. No icterus. Oropharynx moist mucosa without visible lesions. NECK: Supple. No adenopathy. LUNGS: Slight rhonchi at both bases. HEART: Regular S1-S2. No murmurs, rubs or gallops. ABDOMEN: Bowel sounds present, soft, no tenderness appreciated. RECTAL: Not performed. EXTREMITIES: The left ankle laterally has a superficial necrotic eschar approximately the size of a quarter coin which is surrounded by erythema. The area of the necrosis of the necrotic eschar is very dry. No drainage. No tenderness. The patient has a tiny eschar at the right second toe dorsum distally. There is dryness of the skin at the left distal tibia. Pulses at the left posterior tibial and dorsalis pedis are thready and barely palpable. There is a PICC line at the right upper extremity. The right upper extremity is intact and has no erythema or tenderness. LABORATORY DATA WBC 10.5, platelets 350, hemoglobin 13.0, 81% neutrophils. Creatinine 0.97, BUN 29, sodium 141. Liver function tests normal. IMPRESSION Osteomyelitis involving the left ankle. Prior culture with MRSA and group A strep. The wound now appears dry. No drainage visible. RECOMMENDATIONS Continue the patient's treatment as previously outlined by recent infectious disease consultation to continue treatment for six weeks with intravenous vancomycin. This can be continued when the patient is discharged from the hospital and resumed at the intermediate facility. There is nothing new for me to add on this patient's treatment for osteomyelitis. Thank you for this consultation. Aditi Calles MD FD/NILESH /11:28 AM /12:58 PM
--- NOTE | 2017-05-22 14:05 | PD.CARD.PN ---
Subjective Subjective Remarks No CP, SOB improved, feels much better Objective Medications Current Medications Medications (Trade) Dose Ordered Sig/Tatyana Route Start Time Stop Time Status Last Admin (NS Flush) 2 ml UNSCH PRN IVF 05/21/17 12:30 05/22/17 08:59 (Heparin Inj) 5,000 units UNSCH PRN IV PUSH 05/21/17 21:45 (Heparin Inj) 2,500 units UNSCH PRN IV PUSH 05/21/17 21:45 05/22/17 02:30 Heparin Sodium/ Dextrose 250 ml @ 10 mls/hr TITRATE PRN IV 05/21/17 15:45 05/22/17 13:17 (KCl) 10 meq BID PO 05/21/17 21:00 05/22/17 09:00 (D50w (Vial) Inj) 50 ml UNSCH PRN IV PUSH 05/21/17 16:15 (Glucagon Inj) 1 mg UNSCH PRN OTHER 05/21/17 16:15 (NovoLOG SUPPLEMENTAL SCALE) 1 ACHS SLIDING SCALE SQ 05/21/17 17:00 05/22/17 13:17 (Ecotrin Ec) 81 mg DAILY PO 05/22/17 09:00 05/22/17 09:00 (Lipitor) 40 mg DAILY PO 05/22/17 09:00 05/22/17 09:01 (Vasotec) 20 mg BID PO 05/21/17 21:00 05/22/17 09:00 (NovoLIN 70/30 INJ) 15 units BID SQ 05/21/17 21:00 05/22/17 13:17 (Lopressor) 25 mg Q12HR PO 05/21/17 21:00 05/22/17 09:01 (Duoneb Neb) 1 ampule QID NEB NEB 05/21/17 20:00 05/22/17 08:16 (Duoneb Neb) 1 ampule Q2HR NEB PRN NEB 05/21/17 16:15 (SoluMEDROL INJ) 40 mg Q8HR IV PUSH 05/22/17 08:00 05/22/17 13:18 (Lasix Inj) 40 mg BID@09,18 IV PUSH 05/22/17 09:00 05/22/17 09:00 Pharmacy Profile Note 0 ml @ 0 mls/hr UNSCH OTHER 05/22/17 11:45 Vancomycin HCl 1500 mg/Sodium Chloride 515 ml @ 257.5 mls/ hr Q24H IV 05/23/17 00:00 Miscellaneous Information SPECIFIC LAB TO BE DRAWN:VANCOMYCIN DATE TO BE DRToo.. ONCE ONCE .XX 05/25/17 23:45 05/25/17 23:46 Vital Signs / I&O Vital Signs Date Time Temp Pulse Resp B/P (MAP) Pulse Ox O2 Delivery O2 Flow Rate FiO2 05/22/17 12:03 98.7 70 18 129/74 (92) 93 05/22/17 08:19 94 Nasal Cannula 2.00 05/22/17 07:52 98.4 72 18 146/80 (102) 94 05/22/17 06:00 68 05/22/17 05:00 67 05/22/17 04:11 98.7 71 16 138/72 (94) 98 05/22/17 04:00 72 05/22/17 03:00 70 05/22/17 02:00 69 05/22/17 01:00 67 05/22/17 00:20 70 05/22/17 00:04 96.4 72 18 126/60 (82) 99 05/21/17 23:00 76 05/21/17 22:00 86 05/21/17 21:00 93 05/21/17 20:37 98.6 91 18 121/69 (86) 97 05/21/17 20:00 90 05/21/17 19:07 94 Nasal Cannula 3.00 05/21/17 17:30 05/21/17 17:30 97.8 88 22 129/70 (89) 93 05/21/17 16:38 79 25 137/81 (99) 95 Nasal Cannula 3.00 05/21/17 16:20 95 Nasal Cannula 3.00 I/O 05/21/17 05/21/17 05/21/17 05/22/17 05/22/17 05/22/17 07:00 15:00 23:00 07:00 15:00 23:00 Intake Total 240 ml 820 ml 120 ml Output Total 600 ml 1200 ml Balance -360 ml -380 ml 120 ml Intake Oral 240 ml 320 ml 120 ml IV Total 500 ml Output Urine Total 600 ml 1200 ml # Voids 1 # Bowel Movements 0 Physical Exam GENERAL: In NAD SKIN: Warm and dry. HEAD: Normocephalic. EYES: No scleral icterus. No injection or drainage. NECK: Supple, trachea midline. No JVD or lymphadenopathy. CARDIOVASCULAR: Regular rate and rhythm, 1/6 syst murmur, no gallops or rubs. RESPIRATORY: Breath sounds equal bilaterally. No accessory muscle use. GASTROINTESTINAL: Abdomen soft, non-tender, nondistended. MUSCULOSKELETAL: No cyanosis, trace edema. Laboratory Laboratory Tests Test 05/21/17 19:35 05/22/17 01:35 05/22/17 04:20 05/22/17 08:10 Activated Partial Thromboplast Time 27.0 SEC 37.4 SEC 51.6 SEC Troponin I 0.94 NG/ML 1.37 NG/ML Blood Urea Nitrogen 29 MG/DL Creatinine 0.97 MG/DL Random Glucose 144 MG/DL Total Protein 6.7 GM/DL Albumin 2.1 GM/DL Calcium Level 8.4 MG/DL Alkaline Phosphatase 123 U/L Aspartate Amino Transf (AST/SGOT) 20 U/L Alanine Aminotransferase (ALT/SGPT) 22 U/L Total Bilirubin 0.3 MG/DL Sodium Level 141 MEQ/L Potassium Level 3.8 MEQ/L Chloride Level 106 MEQ/L Carbon Dioxide Level 27.4 MEQ/L Anion Gap 8 MEQ/L Estimat Glomerular Filtration Rate 77 ML/MIN Assessment and Plan Problem List: (1) Coronary artery disease ICD Codes: I25.10 - Atherosclerotic heart disease of [place] coronary artery without angina pectoris (2) COPD (chronic obstructive pulmonary disease) ICD Codes: J44.9 - Chronic obstructive pulmonary disease, unspecified (3) CHF (congestive heart failure) ICD Codes: I50.9 - Heart failure, unspecified Assessment and Plan Overall improved. Diabetic ulcer will not heal until LE revascularized, seen by Dr. Jolly. CABG will need to be done first. ID consulted. CABG tentatively scheduled for next Tue. D/w Dr. Alfaro. Problem Qualifiers (1) COPD (chronic obstructive pulmonary disease): Qualified Codes: J44.1 - Chronic obstructive pulmonary disease with (acute) exacerbation (2) CHF (congestive heart failure): Qualified Codes: I50.9 - Heart failure, unspecified Michelle Nick MD May 22, 2017 14:05
--- NOTE | 2017-05-22 14:39 | HHI.PR ---
Subjective Subjective Notes 81-year-old male with severe peripheral vascular disease and end-stage COPD. Patient is not a candidate for any endovascular or open revascularization until cardiac issues are addressed Coronary issues Tromp everything else at this time and patient should have open heart surgery before reattempt any peripheral vascular work on this gentleman Thanks J Objective Vitals/I&O Vital Signs Date Time Temp Pulse Resp B/P (MAP) Pulse Ox O2 Delivery O2 Flow Rate FiO2 05/22/17 12:03 98.7 70 18 129/74 (92) 93 05/22/17 08:19 Nasal Cannula 2.00 Labs Laboratory Tests Test 05/21/17 19:35 05/22/17 01:35 05/22/17 04:20 05/22/17 08:10 Activated Partial Thromboplast Time 27.0 37.4 51.6 Troponin I 0.94 1.37 Blood Urea Nitrogen 29 Creatinine 0.97 Random Glucose 144 Total Protein 6.7 Albumin 2.1 Calcium Level 8.4 Alkaline Phosphatase 123 Aspartate Amino Transf (AST/SGOT) 20 Alanine Aminotransferase (ALT/SGPT) 22 Total Bilirubin 0.3 Sodium Level 141 Potassium Level 3.8 Chloride Level 106 Carbon Dioxide Level 27.4 Anion Gap 8 Estimat Glomerular Filtration Rate 77 Justice Jolly MD May 22, 2017 14:39
--- NOTE | 2017-05-22 15:05 | MB ---
cc: JUSTICE VILLAVICENCIO MD DATE OF CONSULTATION 05/22/[address] Villavicencio, Vascular Surgery REASON FOR CONSULTATION Osteomyelitis left lateral malleolus, dry gangrene of the skin of left lateral malleolus, severe peripheral vascular disease, coronary artery disease, cardiomyopathy, diabetes mellitus, COPD. HISTORY OF PRESENT DISEASE This is a 71-year-old male who was admitted to the hospital at this time with ST elevation myocardial infarction and he was evaluated per cardiology. The patient underwent cardiac catheterization which revealed severe coronary artery disease requiring coronary artery bypass surgery. In the process of this, evaluation is requested of his peripheral vascular disease and ulcer of the left lateral malleolus. PAST MEDICAL HISTORY 1. Congestive heart failure 2. COPD 3. Diabetes mellitus 4. Hypertension 5. Cardiomyopathy 6. Coronary artery disease 7. Hypercholesterolemia 8. Currently ND PAST SURGICAL HISTORY 1. Several debridements of this osteomyelitic area in the past. 2. Cardiac catheterization as above-noted 3. Excision of the melanoma MEDICATIONS Medications can be found on record. SOCIAL HISTORY The patient has been diabetic for many years with a variable degree of compliance. Quit smoking just as he was admitted to the hospital. He smokes two packs a day and is a tobacco abuser. PHYSICAL EXAM Physical examination reveals a 81-year-old male. HEAD, EYES, EARS, NOSE, AND THROAT: Normocephalic. No trauma to the head. Pupils equally reactive. Extraocular muscles intact. NECK: Supple. Bilateral carotid pulses and bilateral faint carotid bruits. No masses in the neck. CHEST: Bilateral breath sounds decreased over both lung costa consistent with severe COPD, pulmonary cachexia with chest wall musculature loss and atrophy. Barrel-chested with use of accessory muscles. HEART: Regular rhythm. ABDOMEN: Soft. No rebound, guarding, or masses. EXTREMITIES: The patient has weak femoral pulses on palpation right a little stronger than the left and there are no palpable pulses distal to that. He has dopplerable popliteal bilateral and posterior tibial on the left, dorsalis pedis and posterior tibial on the right both probably by reconstitution. There is severe atrophy of both lower extremities with loss of muscle mass and the patient can barely walk apparently. There is a dry eschar measuring about 2 cm over the left lateral malleolus. No drainage is noted. IMPRESSION/RECOMMENDATION This is a patient with a dry eschar malleolus left lateral malleolus and eschar of the left lateral malleolus and known coronary artery disease with recent ND as well as first degree AV block. In the wound, the patient has grown MRSA in the past and he was seen by vascular surgery on the of this month. At this point, unfortunately, the patient cannot have any surgery until the cardiac heart situation is improved. I recommend cardiac surgery before anything else understanding the risks and benefits. Justice BHATTI /2:16 PM /2:39 PM
--- NOTE | 2017-05-22 15:14 | EKG ---
Date Performed: 05/21/2017 Time Performed: 13:19:59 PTAGE: 71 years EKG: Sinus rhythm WITH FIRST DEGREE AV BLOCK LEFT VENTRICULAR HYPERTROPHY AND ST-T CHANGE POSSIBLE SEPTAL MYOCARDIAL I NFARCTION INFERIOR MYOCARDIAL INFARCTION ABNORMAL ECG PREVIOUS TRACING : 05/04/2017 09.09 DOCTOR: Jonny Melchor Interpretating Date/Time 05/22/2017 15:12:39
--- NOTE | 2017-05-22 17:00 | PD.WCN.NOT ---
Wound Consult Description: Wound consult ordered by for left lateral and right lateral ankles. Communicated with: Caity TINSLEY 2ed floor , Recommendation: 1) Cleanse Right lower extremity Lateral ankle,1,2,3,4th digit with normal saline pat dry. 2) [place] intact scabs/eschar with povidone iodine BID 3) Left lateral ankle apply Dakins 0.125% soaked gauze to wound base for 10 minutes then rinse with normal saline,pat dry.Apply soak daily prior to dressing change. 4) Apply Santyl jose j thick to wound base cover with moistened gauze secure with dry dressing, change daily. 5) Follow up with vascular surgeon and professor of public administration. Additional Information: Patient was seen today by engineering writer and Caity TINSLEY 2ed floor.Patient can independently reposition in bed for engineering writer.Bilateral lower extremities assessed.Right lower extremity presents multiple areas of scabs/eschar on R lateral ankle 1,2,3,4th digits.Right lateral ankle measures 0.6cm x 0.7cm intact dark brown eschar.Great toes has intact scab on phalange measuring 0.6cm x 0.7cm.Second digit has intact scab to distal phalange measuring 0.3cm x 0.4cm.Third digit intact scab measures 0.5cm x 0.4cm.Forth digit intact scab measures 0.7cm x 0.6cm no drainage odor or signs and symptoms of infection noted. Right pedal pulse palpable .All intact scabs painted with povidone iodine left open to air.Left lateral ankle has circular wound measuring 2.5cm x 2.0cm soft adhered black eschar covers 100% of wound base.No drainage or odor noted.Orders obtained for Dakin 0.125% soak for 10 minutes then Santyl to wound base covered with moist gauze dry dressing.Left pedal pulse faint and hard to detect.cyanosis noted to toes.Santyl and Dakin unavailable at this time.Caity TINSLEY will perform wound care when RX available. Yeni Briseno [facility] May 22, 2017 17:00
--- NOTE | 2017-05-22 17:10 | HHI.HP ---
History of Present Illness Primary Care Physician Chito Wahl MD Admission Diagnosis CHF, CAD, elevated troponin, COPD Diagnoses: History of Present Illness sohrtness of breath admitted to ed last pm had previously been worked up by cardiology has open decubide on left ankle with MRSA cultured was sent to SNF for wound care and medical stabilization prior to pending CABG developed SOB and returned to ED now admitted with CAD and COPD Review of Systems Respiratory: COMPLAINS OF: Shortness of breath Cardiovascular: COMPLAINS OF: Chest pain Past Family Social History Allergies: Coded Allergies: acetaminophen (Verified Allergy, Severe, Tachycardia throat swelling, ) Patient given dose had SOB and Tachycardia that passed, previously got dose 12 AM without any reaction, 12 AM experienced the SOB and Tachycardia. i asked pt about tylenol allergy and he said he gets throat swelling. codeine (Unverified Allergy, Severe, Rash, 05/21/17) propoxyphene (Unverified Allergy, Severe, Nausea/Vomiting, 05/21/17) Past Medical History CAD CHF HPTN HPLD COPD MRSA wound ankle Past Surgical History none Reported Medications Reported Meds & Active Scripts Active Duoneb (Ipratropium-Albuterol Neb) 0.5-2.5 Mg/3 Ml Neb 1 Nebule INH Q4HR NEB PRN Potassium Chloride ER (Potassium Chloride) 20 Meq Tab 20 Meq PO DAILY Novolin 70-30 Inj (Insulin Human Isoph/Insulin Regular) 1,000 Unit/10 Ml Vial 15 Units SQ BID 30 Days Santyl (Collagenase) 250 Unit/Gram Oin 1 Applic TOPICAL DAILY Furosemide 40 Mg Tab 40 Mg PO DAILY Aspirin DR (Aspirin) 81 Mg Tabdr 81 Mg PO DAILY Metoprolol Tartrate 25 Mg Tab 25 Mg PO Q12HR Atorvastatin (Atorvastatin Calcium) 40 Mg Tab 40 Mg PO DAILY Vancomycin 1.5 Gram/250 ml-D5w (Vancomycin HCl in Dextrose 5 %) 1.5 Gram/250 Ml Plast..bag 1.5 Gm IV DAILY 30 Days Reported Tizanidine (Tizanidine HCl) 4 Mg Cap 4 Mg PO HS Glipizide 5 Mg Tab 2.5 Mg PO BIDAC Take 30 minutes before a meal Enalapril (Enalapril Maleate) 20 Mg Tab 20 Mg PO BID Metformin (Metformin HCl) 1,000 Mg Tab 1,000 Mg PO BIDPC Active Ordered Medications Inpatient Medications Albuterol/ Ipratropium (Duoneb Neb) 1 ampule Q2HR NEB PRN NEB short of breath; Start 05/21/17 at 16:15 Aspirin (Aspirin Chew) 324 mg ONCE ONCE CHEW Last administered on 05/21/17 14:09; Start 05/21/17 at 14:00; Stop 05/21/17 at 14:01; Status DC Aspirin (Ecotrin Ec) 81 mg DAILY PO Last administered on 05/22/17 09:00; Start 05/22/17 at 09:00 Atorvastatin Calcium (Lipitor) 40 mg DAILY PO Last administered on 05/22/17 09:01; Start 05/22/17 at 09:00 Dextrose (D50w (Vial) Inj) 50 ml UNSCH PRN IV PUSH HYPOGLYCEMIA-SEE COMMENTS; Start 05/21/17 at 16:15 Enalapril Maleate (Vasotec) 20 mg BID PO Last administered on 05/22/17 09:00 ; Start 05/21/17 at 21:00 Furosemide (Lasix Inj) 40 mg BID@09,18 IV PUSH Last administered on 05/22/17 09:00; Start 05/22/17 at 09:00 Furosemide (Lasix) 40 mg DAILY PO ; Start 05/22/17 at 09:00; Stop 05/22/17 at 09:00; Status DC Glucagon (Glucagon Inj) 1 mg UNSCH PRN OTHER HYPOGLYCEMIA-SEE COMMENTS; Start 05/21/17 at 16:15 Heparin Sodium (Porcine) (Heparin Inj) 2,500 units UNSCH PRN IV PUSH APTT 25 TO 39 Last administered on 05/22/17 02:30; Start 05/21/17 at 21:45 Heparin Sodium/ Dextrose 250 ml @ 10 mls/hr TITRATE PRN IV Coagulation Management Last administered on 05/22/17 13:17; Start 05/21/17 at 15:45 Insulin Aspart (NovoLOG SUPPLEMENTAL SCALE) 1 ACHS SLIDING SCALE SQ Last administered on 05/22/17 13:17; Start 05/21/17 at 17:00 Insulin Human Isoph/Insulin Regular (NovoLIN 70/30 INJ) 15 units BID SQ Last administered on 05/22/17 13:17; Start 05/21/17 at 21:00 Methylprednisolone Sodium Succinate (SoluMEDROL INJ) 40 mg Q8HR IV PUSH Last administered on 05/22/17 13:18; Start 05/22/17 at 08:00 Metoprolol Tartrate (Lopressor) 25 mg Q12HR PO Last administered on 05/22/17 09:01; Start 05/21/17 at 21:00 Miscellaneous Information SPECIFIC LAB TO BE DRAWN:VANCOMYCIN DATE TO BE DR... ONCE ONCE .XX ; Start 05/25/17 at 23:45; Stop 05/25/17 at 23:46 Pharmacy Profile Note 0 ml @ 0 mls/hr UNSCH OTHER ; Start 05/22/17 at 11:45 Potassium Chloride (KCl) 10 meq BID PO Last administered on 05/22/17 09:00; Start 05/21/17 at 21:00 Sodium Chloride (NS Flush) 2 ml UNSCH PRN IVF FLUSH AFTER USING IV ACCESS Last administered on 05/22/17 08:59; Start 05/21/17 at 12:30 Vancomycin HCl 1500 mg/Sodium Chloride 515 ml @ 257.5 mls/ hr Q24H IV ; Start 05/23/17 at 00:00 Vancomycin HCl 1750 mg/Sodium Chloride 517.5 ml @ 250 mls/hr ONCE ONCE IV Last administered on 05/22/17 00:07; Start 05/22/17 at 00:00; Stop 05/22/17 at 02:04; Status DC Family History both parents had heart disease Social History recently quit smoking rare drinker Physical Exam Vital Signs Vital Signs Date Time Temp Pulse Resp B/P (MAP) Pulse Ox O2 Delivery O2 Flow Rate FiO2 05/22/17 15:24 98.8 86 18 138/70 (92) 95 05/22/17 15:00 86 05/22/17 14:00 84 05/22/17 13:00 70 05/22/17 12:03 98.7 70 18 129/74 (92) 93 05/22/17 12:00 68 05/22/17 10:00 66 05/22/17 09:00 70 05/22/17 08:19 94 Nasal Cannula 2.00 05/22/17 08:00 72 05/22/17 07:52 98.4 72 18 146/80 (102) 94 05/22/17 06:00 68 05/22/17 05:00 67 05/22/17 04:11 98.7 71 16 138/72 (94) 98 05/22/17 04:00 72 05/22/17 03:00 70 05/22/17 02:00 69 05/22/17 01:00 67 05/22/17 00:20 70 05/22/17 00:04 96.4 72 18 126/60 (82) 99 05/21/17 23:00 76 05/21/17 22:00 86 05/21/17 21:00 93 05/21/17 20:37 98.6 91 18 121/69 (86) 97 05/21/17 20:00 90 05/21/17 19:07 94 Nasal Cannula 3.00 05/21/17 17:30 05/21/17 17:30 97.8 88 22 129/70 (89) 93 Physical Exam GENERAL: This is a well-nourished, well-developed patient, in no apparent distress. SKIN: No rashes, ecchymoses or lesions. Cool and dry. HEAD: Atraumatic. Normocephalic. No temporal or scalp tenderness. EYES: Pupils equal round and reactive. Extraocular motions intact. No scleral icterus. No injection or drainage. ENT: Nose without bleeding, purulent drainage or septal hematoma. Throat without erythema, tonsillar hypertrophy or exudate. Uvula midline. Airway patent.O2 in place pnc NECK: Trachea midline. No JVD or lymphadenopathy. Supple, nontender, no meningeal signs. CARDIOVASCULAR: Regular rate and rhythm without murmurs, gallops, or rubs. RESPIRATORY: Clear but decreased bilaterally GASTROINTESTINAL: Abdomen soft, non-tender, nondistended. No hepato-splenomegaly , or palpable masses. No guarding. MUSCULOSKELETAL: Extremities without clubbing, cyanosis, or edema. No joint tenderness, effusion, or edema noted. No calf tenderness. Negative Homans sign bilaterally. NEUROLOGICAL: Awake and alert. Cranial nerves II through XII intact. Motor and sensory grossly within normal limits. Five out of 5 muscle strength in all muscle groups. Normal speech. SKIN open wound left and right ankles Laboratory Laboratory Tests Test 05/21/17 19:35 05/22/17 01:35 05/22/17 04:20 05/22/17 08:10 Activated Partial Thromboplast Time 27.0 37.4 51.6 Troponin I 0.94 1.37 Blood Urea Nitrogen 29 Creatinine 0.97 Random Glucose 144 Total Protein 6.7 Albumin 2.1 Calcium Level 8.4 Alkaline Phosphatase 123 Aspartate Amino Transf (AST/SGOT) 20 Alanine Aminotransferase (ALT/SGPT) 22 Total Bilirubin 0.3 Sodium Level 141 Potassium Level 3.8 Chloride Level 106 Carbon Dioxide Level 27.4 Anion Gap 8 Estimat Glomerular Filtration Rate 77 Test 05/22/17 15:20 Activated Partial Thromboplast Time 40.6 Result Diagram: 05/21/17 1258 05/22/17 0420 Imaging Last Impressions Chest X-Ray 05/21/17 1229 Signed Impressions: Service Date/Time: Sunday, May 21, 2017 12:43 - CONCLUSION: PICC line in good position. Significant increase in amount of congestive failure. Rosendo Muñoz MD FACR Course breathing better today Caprini VTE Risk Assessment Caprini VTE Risk Assessment: Mod/High Risk (score >= 2) Caprini Risk Assessment Model Point Value = 1 Point Value = 2 Point Value = 3 Point Value = 5 Age 41-60 Minor surgery BMI > 25 kg/m2 Swollen legs Varicose veins or History of unexplained or recurrent spontaneous Oral contraceptives or hormone replacement Sepsis (< 1 month) Serious lung disease, including pneumonia (< 1 month) Abnormal pulmonary function Acute myocardial infarction Congestive heart failure (< 1 month) History of inflammatory bowel disease Medical patient at bed rest Age 61-74 Arthroscopic surgery Major open surgery (> 45 min) Laparoscopic surgery (> 45 min) Malignancy Confined to bed (> 72 hours) Immobilizing plaster cast Central venous access Age >= 75 History of VTE Family history of VTE Factor V Leiden Prothrombin [id number] Lupus anticoagulant Anticardiolipin antibodies Elevated serum homocysteine Heparin-induced thrombocytopenia Other congenital or acquired thrombophilia Stroke (< 1 month) Elective arthroplasty Hip, pelvis, or leg fracture Acute spinal cord injury (< 1 month) Prophylaxis Regimen Total Risk Factor Score Risk Level Prophylaxis Regimen 0-1 Low Early ambulation 2 Moderate Order ONE of the following: *Sequential Compression Device (SCD) *Heparin 5000 units SQ BID 3-4 Higher Order ONE of the following medications: *Heparin 5000 units SQ TID *Enoxaparin/Lovenox 40 mg SQ daily (WT < 150 kg, CrCl > 30 mL/min) *Enoxaparin/Lovenox 30 mg SQ daily (WT < 150 kg, CrCl > 10-29 mL/min) *Enoxaparin/Lovenox 30 mg SQ BID (WT < 150 kg, CrCl > 30 mL/min) AND/OR *Sequential Compression Device (SCD) 5 or more Highest Order ONE of the following medications: *Heparin 5000 units SQ TID (Preferred with Epidurals) *Enoxaparin/Lovenox 40 mg SQ daily (WT < 150 kg, CrCl > 30 mL/min) *Enoxaparin/Lovenox 30 mg SQ daily (WT < 150 kg, CrCl > 10-29 mL/min) *Enoxaparin/Lovenox 30 mg SQ BID (WT < 150 kg, CrCl > 30 mL/min) AND *Sequential Compression Device (SCD) Assessment and Plan Problem List: (1) CHF (congestive heart failure) ICD Codes: I50.9 - Heart failure, unspecified Plan: cardiology to consult and diurese (2) COPD (chronic obstructive pulmonary disease) ICD Codes: J44.9 - Chronic obstructive pulmonary disease, unspecified Plan: macey colunga (3) Coronary artery disease ICD Codes: I25.10 - Atherosclerotic heart disease of [place] coronary artery without angina pectoris Plan: ultimately needs bypass surgery (4) Wound infection ICD Codes: T14.8XXA - Other injury of unspecified body region, initial encounter; L08.9 - Local infection of the skin and subcutaneous tissue, unspecified Plan: wound care consult Assessment and Plan CHF COPD CAD MRSA WOUND Problem Qualifiers (1) CHF (congestive heart failure): Qualified Codes: I50.9 - Heart failure, unspecified (2) COPD (chronic obstructive pulmonary disease): Qualified Codes: J44.1 - Chronic obstructive pulmonary disease with (acute) exacerbation Frederic Vincent DO May 22, 2017 17:10
[2017-05-22] MEDS: DILTIAZEM 125 MG/NS 100 ML IV PRN ×2 (18:29)
[2017-05-22] MEDS: COLLAGENASE OINT 30 GM TUBE TOPICAL SCH (21:09)
[2017-05-22] MEDS: SODIUM HYPOCHLORITE 0.125% 500 ML BTL TOPICAL SCH (21:09)
[2017-05-23] VITALS (28 sets, daily range): BP systolic 113–137; BP diastolic 62–81; PULSE 64–98; RESP 16–20; TEMP 96.1–98.6; O2SAT 92–98
[2017-05-23] MEDS: VANCOMYCIN 1,500 MG/NS 500 ML IV SCH ×2 (00:24)
[2017-05-23] MEDS: methylPREDNISolone SOD SUCC 40 MG/1 ML VIAL IV PUSH SCH ×3 (05:22→21:11)
[2017-05-23] MEDS: RESP: ALBUTEROL 2.5 MG/IPRATROPIUM 0.5 MG NEB (PRN) NEB (05:23)
[2017-05-23 05:34] LABS: AUTOMATED NEUTROPHIL # 13.4 TH/MM3 (1.8-7.7); BASOPHIL % 0.2 % (0.0-2.0); HEMATOCRIT 36.6 % (39.0-51.0); HEMOGLOBIN 12.2 GM/DL (13.0-17.0); LYMPH % 5.2 % (9.0-44.0); LYMPHOCYTE # 0.8 TH/MM3 (1.0-4.8); MEAN CELL VOLUME 83.8 FL (80.0-100.0); MEAN CORPUSCULAR HEMOGLOBIN 27.9 PG (27.0-34.0); MEAN CORPUSCULAR HGB CONC 33.3 % (32.0-36.0); MEAN PLATELET VOLUME 9.6 FL (7.0-11.0); MONO % 2.7 % (0.0-8.0); MONOCYTE # 0.4 TH/MM3 (0-0.9); NEUT % 91.9 % (16.0-70.0); PLATELET COUNT 320 TH/MM3 (150-450); RED BLOOD COUNT 4.37 MIL/MM3 (4.50-5.90); RED CELL DISTRIBUTION WIDTH 14.9 % (11.6-17.2); WHITE BLOOD COUNT 14.6 TH/MM3 (4.0-11.0)
[2017-05-23 05:47] LABS: CREATININE 1.01 MG/DL (0.60-1.30)
[2017-05-23 07:05] LABS: WESTERGREN SEDIMENTATION RATE 40 mm/hr (0-20)
[2017-05-23] MEDS: RESP: ALBUTEROL 2.5 MG/IPRATROPIUM 0.5 MG NEB (SCH) NEB ×4 (07:14→18:57)
--- NOTE | 2017-05-23 07:47 | HHI.PR ---
Subjective Remarks Resting comfortable denies any CP on heparin and Cardizem gtt. Continues to have SOB on O2 3 liters Objective Vital Signs Date Time Temp Pulse Resp B/P (MAP) Pulse Ox O2 Delivery O2 Flow Rate FiO2 05/23/17 07:17 92 Nasal Cannula 3.00 05/23/17 06:00 68 05/23/17 05:00 68 05/23/17 04:06 96.1 66 16 127/71 (89) 98 05/23/17 04:00 66 05/23/17 03:00 64 05/23/17 02:00 66 05/23/17 01:00 66 05/23/17 00:00 96.5 66 16 116/67 (83) 95 05/22/17 23:00 70 05/22/17 22:00 78 05/22/17 21:13 96 Nasal Cannula 3.00 05/22/17 21:00 96 05/22/17 20:00 93 05/22/17 20:00 100 124/69 (87) 96 05/22/17 19:30 99.5 103 16 118/69 (85) 95 05/22/17 18:51 104 20 125/70 (88) 96 05/22/17 18:29 133 121/81 05/22/17 18:05 127 20 121/81 (94) 93 05/22/17 17:44 127 18 126/80 (95) 92 05/22/17 16:00 84 05/22/17 15:24 98.8 86 18 138/70 (92) 95 05/22/17 15:00 86 05/22/17 14:00 84 05/22/17 13:00 70 05/22/17 12:03 98.7 70 18 129/74 (92) 93 05/22/17 12:00 68 05/22/17 11:00 64 05/22/17 10:00 66 05/22/17 09:00 70 05/22/17 08:19 94 Nasal Cannula 2.00 05/22/17 08:00 72 05/22/17 07:52 98.4 72 18 146/80 (102) 94 I/O 05/22/17 05/22/17 05/22/17 05/23/17 05/23/17 05/23/17 07:00 15:00 23:00 07:00 15:00 23:00 Intake Total 820 ml 120 ml 720 ml 515 ml Output Total 1200 ml 1400 ml Balance -380 ml 120 ml -680 ml 515 ml Intake Oral 320 ml 120 ml 720 ml IV Total 500 ml 515 ml Output Urine Total 1200 ml 1400 ml # Bowel Movements 0 Result Diagram: 05/23/17 0505/23/17 0520 Imaging Last 72 hours Impressions Chest X-Ray 05/21/17 1229 Signed Impressions: Service Date/Time: Sunday, May 21, 2017 12:43 - CONCLUSION: PICC line in good position. Significant increase in amount of congestive failure. Rosendo Muñoz MD FACR Objective Remarks GENERAL: alert and cooperative SKIN: Warm and dry. Wound on left heel dressing on HEAD: Normocephalic. EYES: No scleral icterus. No injection or drainage. NECK: Supple, trachea midline. No JVD or lymphadenopathy. CARDIOVASCULAR: Regular rate and rhythm without murmurs, gallops, or rubs. RESPIRATORY: Breath sounds equal bilaterally. No accessory muscle use. GASTROINTESTINAL: Abdomen soft, non-tender, nondistended. MUSCULOSKELETAL: No cyanosis, or edema. BACK: Nontender without obvious deformity. No CVA tenderness. Medications and IVs Current Medications Medications (Trade) Dose Ordered Sig/Tatyana Route Start Time Stop Time Status Last Admin (NS Flush) 2 ml UNSCH PRN IVF 05/21/17 12:30 05/22/17 20:08 (Heparin Inj) 5,000 units UNSCH PRN IV PUSH 05/21/17 21:45 (Heparin Inj) 2,500 units UNSCH PRN IV PUSH 05/21/17 21:45 05/22/17 02:30 Heparin Sodium/ Dextrose 250 ml @ 10 mls/hr TITRATE PRN IV 05/21/17 15:45 05/22/17 13:17 (KCl) 10 meq BID PO 05/21/17 21:00 05/22/17 20:08 (D50w (Vial) Inj) 50 ml UNSCH PRN IV PUSH 05/21/17 16:15 (Glucagon Inj) 1 mg UNSCH PRN OTHER 05/21/17 16:15 (NovoLOG SUPPLEMENTAL SCALE) 1 ACHS SLIDING SCALE SQ 05/21/17 17:00 05/22/17 20:12 (Ecotrin Ec) 81 mg DAILY PO 05/22/17 09:00 05/22/17 09:00 (Lipitor) 40 mg DAILY PO 05/22/17 09:00 05/22/17 09:01 (Vasotec) 20 mg BID PO 05/21/17 21:00 05/22/17 20:08 (NovoLIN 70/30 INJ) 15 units BID SQ 05/21/17 21:00 05/22/17 20:11 (Lopressor) 25 mg Q12HR PO 05/21/17 21:00 05/22/17 20:08 (Duoneb Neb) 1 ampule QID NEB NEB 05/21/17 20:00 05/23/17 07:14 (Duoneb Neb) 1 ampule Q2HR NEB PRN NEB 05/21/17 16:15 05/23/17 05:23 (SoluMEDROL INJ) 40 mg Q8HR IV PUSH 05/22/17 08:00 05/23/17 05:22 (Lasix Inj) 40 mg BID@09,18 IV PUSH 05/22/17 09:00 05/22/17 17:22 Pharmacy Profile Note 0 ml @ 0 mls/hr UNSCH OTHER 05/22/17 11:45 Vancomycin HCl 1500 mg/Sodium Chloride 515 ml @ 257.5 mls/ hr Q24H IV 05/23/17 00:00 05/23/17 00:24 Miscellaneous Information SPECIFIC LAB TO BE DRAWN:VANCOMYCIN DATE TO BE DR... ONCE ONCE .XX 05/25/17 23:45 05/25/17 23:46 (Lasix) 20 mg DAILY PO 05/23/17 09:00 Diltiazem HCl 125 mg/Sodium Chloride 125 ml @ 5 mls/hr TITRATE PRN IV 05/22/17 18:30 05/22/17 18:29 (Dakin'S 0.125% Soln) 50 ml DAILY TOPICAL 05/22/17 20:32 05/22/17 21:09 (Santyl Oint) 1 applic DAILY TOPICAL 05/22/17 20:34 05/22/17 21:09 Assessment and Plan Problem List: (1) NSTEMI (non-ST elevated myocardial infarction) ICD Codes: I21.4 - Non-ST elevation (NSTEMI) myocardial infarction (2) Wound infection ICD Codes: T14.8XXA - Other injury of unspecified body region, initial encounter; L08.9 - Local infection of the skin and subcutaneous tissue, unspecified (3) Coronary artery disease ICD Codes: I25.10 - Atherosclerotic heart disease of [place] coronary artery without angina pectoris (4) CHF (congestive heart failure) ICD Codes: I50.9 - Heart failure, unspecified (5) COPD (chronic obstructive pulmonary disease) ICD Codes: J44.9 - Chronic obstructive pulmonary disease, unspecified Assessment and Plan 05/23/17 NSTEMI: Cardiology consulted Trop 0.94 up to 1.37 denies any chest discomfort. On heparin gtt CHF: Lasix IV BID. O2 3 liters with o2 sats at 92 % Osteomyelitis: Left foot wound care and ID consulted. On IV vancomycin HLD: continue statin COPD: on steroids and duonebs Labs and chest Xray in AM Problem Qualifiers (1) CHF (congestive heart failure): Qualified Codes: I50.9 - Heart failure, unspecified (2) COPD (chronic obstructive pulmonary disease): Qualified Codes: J44.1 - Chronic obstructive pulmonary disease with (acute) exacerbation Cherelle Barry May 23, 2017 07:47
[2017-05-23] MEDS: ATORVASTATIN 40 MG TAB PO SCH (08:26)
[2017-05-23] MEDS: POTASSIUM CHLORIDE 10 MEQ CONTROLLED RELEASE TAB PO SCH ×2 (08:26→21:10)
[2017-05-23] MEDS: METOPROLOL TARTRATE 25 MG TAB PO SCH ×2 (08:26→21:09)
[2017-05-23] MEDS: FUROSEMIDE 40 MG/4 ML VIAL IV PUSH SCH ×2 (08:26→17:09)
[2017-05-23] MEDS: INSULIN HUMAN NPH/R 70/30 1,000 UNITS/10 ML VIAL SQ SCH ×2 (08:27→21:10)
[2017-05-23] MEDS: ENALAPRIL MALEATE 10 MG TAB PO SCH ×2 (08:27→21:10)
[2017-05-23] MEDS: INSULIN ASPART SUPPLEMENTAL SCALE SQ SCH ×4 (08:28→21:10)
[2017-05-23] MEDS: SODIUM HYPOCHLORITE 0.125% 500 ML BTL TOPICAL SCH (08:29)
[2017-05-23] MEDS: COLLAGENASE OINT 30 GM TUBE TOPICAL SCH (08:29)
[2017-05-23] MEDS: HEPARIN-D5W 25,000 U/250 ML 250 ML IV PRN (08:37)
[2017-05-23] MEDS: ASPIRIN EC 81 MG TABEC PO SCH (08:45)
[2017-05-23] MEDS: SODIUM CHLORIDE 0.9% FLUSH 10 ML FLUSH IV FLUSH SCH ×2 (09:00→21:11)
[2017-05-23] MEDS ORDERED: PAPAVERINE INJ 60 MG, NITROGLYCERIN INJ 100 MCG, DILTIAZEM INJ 100 MG in SODIUM CHLORID... IRRIGATION SCH (09:00)
[2017-05-23] MEDS ORDERED: INSULIN REGULAR (IV INFUSION) 100 UNITS in SODIUM CHLORIDE 0.9% INJ 99 ML IV PRN (09:00)
[2017-05-23] MEDS ORDERED: CEFAZOLIN INJ 500 MG in SODIUM CHLORIDE 0.9% IRR BTL 500 ML IRRIGATION SCH (09:00)
[2017-05-23] MEDS ORDERED: DEXTROSE 50% IN WATER 50 ML VIAL(D50) IV PUSH PRN (09:00)
[2017-05-23] MEDS ORDERED: FUROSEMIDE 20 MG TAB PO SCH (09:00)
[2017-05-23] MEDS ORDERED: SODIUM CHLORIDE 0.9% FLUSH 10 ML FLUSH IV FLUSH PRN (09:00)
[2017-05-23] MEDS ORDERED: METOPROLOL TARTRATE 25 MG TAB PO SCH (09:00)
[2017-05-23] MEDS ORDERED: CHLORHEXIDINE GLUCONATE 4% SOLN 120 ML BTL TOPICAL SCH (09:00)
[2017-05-23] MEDS ORDERED: ceFAZolin 2 GM PREMIX 50 ML IV SCH (09:00)
--- NOTE | 2017-05-23 11:03 | PD.CAR.PN ---
CVT Progress Note Subjective/Hospital Course: 71/ male / known to our service that initially presented with complaint of worsening infection in his left ankle that he has had off and on for the last 3 weeks. He had a open wound on the outside aspect of the ankle. He has longstanding history of diabetes on insulin. He was also been complaining of some increased weakness and fatigue for the past 6 months. He said he had normally ambulated unassisted, was having more difficulty getting around due to the weakness and discomfort. Incidentally on ED admission 05/04 , his EKG some ST elevation in lead II only, however, he did have some T-wave depression in the lateral leads, some poor R-wave progression, no prior EKG to compare. He then had a troponin elevated at 1.26. He was ruled in for non-STEMI. He was taken then to the cheesem[facility] lab[facility] by Dr. Melchor showed the LAD approximately 20% stenosis, moderate sized diagonal branches, 40% proximal stenosis, the LAD beyond the takeoff of the diagonal was 90% stenosed, the second diagonal branch had some luminal irregularities, the LAD distal had 80% lesion, left circ had a 99% subtotal occlusion and the right coronary artery had heavily calcified subtotal occlusion, ejection fraction approximately 35%. S/p left external iliac MOTOR AND CONTROLS TESTER (good common femoral artery pulse) and s/p atherectomy/MOTOR AND CONTROLS TESTER left posterior tibial artery. anterior tibial artery occluded. Doppler PT and AT. No vascular surgical options given poor runoff with small vessels (all distal disease). . We were consulted at his last admission to evaluate for coronary artery bypass grafting. Pt was followed closely , but was very deconditioned and was still being treated for left ankle wound infection. It was felt at that time, that the pt needed to be discharged to SNF, for aggressive PT/ OT and had a outpt f/u with Dr Alfaro in 2-3 after discharge to re-eval for surgery . He was discharged to SNF 05/17 PAST MEDICAL HISTORY: Hypertension, Uncontrolled diabetes mellitus, COPD with ongoing tobacco use , severe PAD , Excision of melanoma from the face, chronic wound on his left ankle for about 3 weeks. 05/22 pt was re-admitted to ED , worsening shortness of breath and non-productive cough , CXR showed pulm edema , BNP 1200 Trop 1.26, NSTEMI , pt has been seen and eval by Dr Wright and Dr Alfaro agree with aggressive diuresis, and will eval for surgery early next week , he still has a left ankle wound that needs wound care management , and continued ABX , last PFT showed FEV1 1.10 05/23 pt went into afib RVR last pm, now on cardizem gtt, continues on Heparin gtt on room air breath sounds improved, still few crackles in the bases scheduled for surgery on SatMay 28 Objective: GENERAL: SKIN: Warm and dry. HEAD: Normocephalic. EYES: No scleral icterus. No injection or drainage. NECK: Supple, trachea midline. No JVD or lymphadenopathy. CARDIOVASCULAR: irregular rate and rhythm without murmurs, gallops, or rubs. Doppler pulses in feet only RESPIRATORY: Breath sounds equal bilaterally. No accessory muscle use. GASTROINTESTINAL: Abdomen soft, non-tender, nondistended. MUSCULOSKELETAL: No cyanosis, or edema. BACK: Nontender without obvious deformity. No CVA tenderness. ext: dry dressing to left ankle Vital Signs Date Time Temp Pulse Resp B/P (MAP) Pulse Ox O2 Delivery O2 Flow Rate FiO2 05/23/17 08:35 98 137/78 05/23/17 07:17 92 Nasal Cannula 3.00 05/23/17 06:00 68 05/23/17 05:00 68 05/23/17 04:06 96.1 66 16 127/71 (89) 98 05/23/17 04:00 66 05/23/17 03:00 64 05/23/17 02:00 66 05/23/17 01:00 66 05/23/17 00:00 96.5 66 16 116/67 (83) 95 05/22/17 23:00 70 05/22/17 22:00 78 05/22/17 21:13 96 Nasal Cannula 3.00 05/22/17 21:00 96 05/22/17 20:00 93 05/22/17 20:00 100 124/69 (87) 96 05/22/17 19:30 99.5 103 16 118/69 (85) 95 05/22/17 18:51 104 20 125/70 (88) 96 05/22/17 18:29 133 121/81 05/22/17 18:05 127 20 121/81 (94) 93 05/22/17 17:44 127 18 126/80 (95) 92 05/22/17 16:00 84 05/22/17 15:24 98.8 86 18 138/70 (92) 95 05/22/17 15:00 86 05/22/17 14:00 84 05/22/17 13:00 70 05/22/17 12:03 98.7 70 18 129/74 (92) 93 05/22/17 12:00 68 05/22/17 11:00 64 Labs: Laboratory Tests Test 05/23/17 05:20 White Blood Count 14.6 TH/MM3 (4.0-11.0) Red Blood Count 4.37 MIL/MM3 (4.50-5.90) Hemoglobin 12.2 GM/DL (13.0-17.0) Hematocrit 36.6 % (39.0-51.0) Mean Corpuscular Volume 83.8 FL (80.0-100.0) Mean Corpuscular Hemoglobin 27.9 PG (27.0-34.0) Mean Corpuscular Hemoglobin Concent 33.3 % (32.0-36.0) Red Cell Distribution Width 14.9 % (11.6-17.2) Platelet Count 320 TH/MM3 (150-450) Mean Platelet Volume 9.6 FL (7.0-11.0) Neutrophils (%) (Auto) 91.9 % (16.0-70.0) Lymphocytes (%) (Auto) 5.2 % (9.0-44.0) Monocytes (%) (Auto) 2.7 % (0.0-8.0) Eosinophils (%) (Auto) 0.0 % (0.0-4.0) Basophils (%) (Auto) 0.2 % (0.0-2.0) Neutrophils # (Auto) 13.4 TH/MM3 (1.8-7.7) Lymphocytes # (Auto) 0.8 TH/MM3 (1.0-4.8) Monocytes # (Auto) 0.4 TH/MM3 (0-0.9) Eosinophils # (Auto) 0.0 TH/MM3 (0-0.4) Basophils # (Auto) 0.0 TH/MM3 (0-0.2) CBC Comment DIFF FINAL Differential Comment Erythrocyte Sedimentation Rate 40 mm/hr (0-20) Activated Partial Thromboplast Time 43.0 SEC (24.3-30.1) Creatinine 1.01 MG/DL (0.60-1.30) Estimat Glomerular Filtration Rate 73 ML/MIN (>89) Result Diagram: 05/23/1751905/23/17519 Telemetry: afib (1) Coronary artery disease Plan: on ASA, statin , BB heparin gtt for surgery on May 28 (2) COPD (chronic obstructive pulmonary disease) Plan: on nebs (3) CHF (congestive heart failure) Plan: on diuretics Problem Qualifiers (1) COPD (chronic obstructive pulmonary disease): Qualified Codes: J44.1 - Chronic obstructive pulmonary disease with (acute) exacerbation (2) CHF (congestive heart failure): Qualified Codes: I50.9 - Heart failure, unspecified Teresa Peterson May 23, 2017 11:03
--- NOTE | 2017-05-23 17:10 | PD.CARD.PN ---
Subjective Subjective Remarks No CP, mild SOB, AF last night, now back in SR Objective Medications Current Medications Medications (Trade) Dose Ordered Sig/Tatyana Route Start Time Stop Time Status Last Admin (Heparin Inj) 5,000 units UNSCH PRN IV PUSH 05/21/17 21:45 (Heparin Inj) 2,500 units UNSCH PRN IV PUSH 05/21/17 21:45 05/22/17 02:30 Heparin Sodium/ Dextrose 250 ml @ 10 mls/hr TITRATE PRN IV 05/21/17 15:45 05/23/17 08:37 (KCl) 10 meq BID PO 05/21/17 21:00 05/23/17 08:26 (D50w (Vial) Inj) 50 ml UNSCH PRN IV PUSH 05/21/17 16:15 (Glucagon Inj) 1 mg UNSCH PRN OTHER 05/21/17 16:15 (NovoLOG SUPPLEMENTAL SCALE) 1 ACHS SLIDING SCALE SQ 05/21/17 17:00 05/23/17 13:30 (Ecotrin Ec) 81 mg DAILY PO 05/22/17 09:00 05/23/17 08:45 (Lipitor) 40 mg DAILY PO 05/22/17 09:00 05/23/17 08:26 (Vasotec) 20 mg BID PO 05/21/17 21:00 05/24/17 21:00 05/23/17 08:27 (NovoLIN 70/30 INJ) 15 units BID SQ 05/21/17 21:00 05/23/17 08:27 (Lopressor) 25 mg Q12HR PO 05/21/17 21:00 05/23/17 08:26 (Duoneb Neb) 1 ampule QID NEB NEB 05/21/17 20:00 05/23/17 15:21 (Duoneb Neb) 1 ampule Q2HR NEB PRN NEB 05/21/17 16:15 05/23/17 05:23 (SoluMEDROL INJ) 40 mg Q8HR IV PUSH 05/22/17 08:00 05/23/17 13:30 (Lasix Inj) 40 mg BID@09,18 IV PUSH 05/22/17 09:00 05/23/17 08:26 Pharmacy Profile Note 0 ml @ 0 mls/hr UNSCH OTHER 05/22/17 11:45 Vancomycin HCl 1500 mg/Sodium Chloride 515 ml @ 257.5 mls/ hr Q24H IV 05/23/17 00:00 05/23/17 00:24 Miscellaneous Information SPECIFIC LAB TO BE DRAWN:VANCOMYCIN DATE TO BE DRToo.. ONCE ONCE .XX 05/25/17 23:45 05/25/17 23:46 Diltiazem HCl 125 mg/Sodium Chloride 125 ml @ 5 mls/hr TITRATE PRN IV 05/22/17 18:30 05/22/17 18:29 (Dakin'S 0.125% Soln) 50 ml DAILY TOPICAL 05/22/17 20:32 05/23/17 08:29 (Santyl Oint) 1 applic DAILY TOPICAL 05/22/17 20:34 05/23/17 08:29 (NS Flush) 2 ml BID IV FLUSH 05/23/17 09:00 (NS Flush) 2 ml UNSCH PRN IV FLUSH 05/23/17 09:00 Papaverine HCl 60 mg/Nitroglycerin 100 mcg/Diltiazem HCl 100 mg/Sodium Chloride 100 ml @ 0 mls/hr METAL BURRER IRRIGATION 05/23/17 09:00 05/30/17 08:59 Cefazolin Sodium 500 mg/Sodium Chloride 505 ml @ 0 mls/hr METAL BURRER IRRIGATION 05/23/17 09:00 05/30/17 08:59 Cefazolin Sodium/ Dextrose 50 ml @ 150 mls/hr METAL BURRER IV 05/23/17 09:00 05/30/17 08:59 (Lopressor) 12.5 mg METAL BURRER PO 05/23/17 09:00 05/30/17 08:59 (Hibiclens 4% Top Soln) 1 applic METAL BURRER TOPICAL 05/23/17 09:00 05/30/17 08:59 Insulin Human Regular 100 units/ Sodium Chloride 100 ml @ 3 mls/hr TITRATE PRN IV 05/23/17 09:00 05/30/17 08:59 (D50w (Vial) Inj) 50 ml UNSCH PRN IV PUSH 05/23/17 09:00 Vital Signs / I&O Vital Signs Date Time Temp Pulse Resp B/P (MAP) Pulse Ox O2 Delivery O2 Flow Rate FiO2 05/23/17 16:18 98.6 76 20 113/62 (79) 94 05/23/17 15:21 93 21 05/23/17 14:00 74 05/23/17 13:31 76 126/77 05/23/17 13:00 72 05/23/17 12:00 98.2 76 20 126/77 (93) 94 05/23/17 12:00 68 05/23/17 11:00 68 05/23/17 10:00 64 05/23/17 09:00 82 05/23/17 08:35 98 137/78 05/23/17 08:00 72 05/23/17 07:45 98.6 98 20 137/78 (97) 96 05/23/17 07:17 92 Nasal Cannula 3.00 05/23/17 07:00 70 05/23/17 06:00 68 05/23/17 05:00 68 05/23/17 04:06 96.1 66 16 127/71 (89) 98 05/23/17 04:00 66 05/23/17 03:00 64 05/23/17 02:00 66 05/23/17 01:00 66 05/23/17 00:00 96.5 66 16 116/67 (83) 95 05/22/17 23:00 70 05/22/17 22:00 78 05/22/17 21:13 96 Nasal Cannula 3.00 05/22/17 21:00 96 05/22/17 20:00 93 05/22/17 20:00 100 124/69 (87) 96 05/22/17 19:30 99.5 103 16 118/69 (85) 95 05/22/17 18:51 104 20 125/70 (88) 96 05/22/17 18:29 133 121/81 05/22/17 18:05 127 20 121/81 (94) 93 05/22/17 17:44 127 18 126/80 (95) 92 I/O 05/22/17 05/22/17 05/22/17 05/23/17 05/23/17 05/23/17 06:59 14:59 22:59 06:59 14:59 22:59 Intake Total 820 ml 120 ml 720 ml 515 ml 266.3 ml Output Total 1200 ml 1400 ml 675 ml Balance -380 ml 120 ml -680 ml 515 ml -408.7 ml Intake Oral 320 ml 120 ml 720 ml 240 ml IV Total 500 ml 515 ml 26.3 ml Output Urine Total 1200 ml 1400 ml 675 ml # Bowel Movements 0 1 Physical Exam GENERAL: In NAD SKIN: Warm and dry. HEAD: Normocephalic. EYES: No scleral icterus. No injection or drainage. NECK: Supple, trachea midline. No JVD or lymphadenopathy. CARDIOVASCULAR: Regular rate and rhythm, 1/6 syst murmur, no gallops or rubs. RESPIRATORY: Breath sounds equal bilaterally. No accessory muscle use. GASTROINTESTINAL: Abdomen soft, non-tender, nondistended. MUSCULOSKELETAL: No cyanosis, trace edema. Laboratory Laboratory Tests Test 05/23/17 05:20 05/23/17 13:12 White Blood Count 14.6 TH/MM3 Red Blood Count 4.37 MIL/MM3 Hemoglobin 12.2 GM/DL Hematocrit 36.6 % Mean Corpuscular Volume 83.8 FL Mean Corpuscular Hemoglobin 27.9 PG Mean Corpuscular Hemoglobin Concent 33.3 % Red Cell Distribution Width 14.9 % Platelet Count 320 TH/MM3 Mean Platelet Volume 9.6 FL Neutrophils (%) (Auto) 91.9 % Lymphocytes (%) (Auto) 5.2 % Monocytes (%) (Auto) 2.7 % Eosinophils (%) (Auto) 0.0 % Basophils (%) (Auto) 0.2 % Neutrophils # (Auto) 13.4 TH/MM3 Lymphocytes # (Auto) 0.8 TH/MM3 Monocytes # (Auto) 0.4 TH/MM3 Eosinophils # (Auto) 0.0 TH/MM3 Basophils # (Auto) 0.0 TH/MM3 CBC Comment DIFF FINAL Differential Comment Erythrocyte Sedimentation Rate 40 mm/hr Activated Partial Thromboplast Time 43.0 SEC 37.8 SEC Creatinine 1.01 MG/DL Estimat Glomerular Filtration Rate 73 ML/MIN Assessment and Plan Problem List: (1) Coronary artery disease ICD Codes: I25.10 - Atherosclerotic heart disease of [place] coronary artery without angina pectoris (2) COPD (chronic obstructive pulmonary disease) ICD Codes: J44.9 - Chronic obstructive pulmonary disease, unspecified (3) CHF (congestive heart failure) ICD Codes: I50.9 - Heart failure, unspecified Assessment and Plan AF w RVR, now back in SR, DC IV diltiazem. Diabetic ulcer will not heal until LE revascularized, seen by Dr. Jolly. Continue abxs as per ID. CABG will need to be done first, tentatively scheduled for next Tu. Continue monitoring on tele. Problem Qualifiers (1) COPD (chronic obstructive pulmonary disease): Qualified Codes: J44.1 - Chronic obstructive pulmonary disease with (acute) exacerbation (2) CHF (congestive heart failure): Qualified Codes: I50.9 - Heart failure, unspecified Michelle Nick MD May 23, 2017 17:10
[2017-05-23] MEDS ORDERED: MISCELLANEOUS PHARMACY INFORMATION OTHER PRN (17:15)
--- NOTE | 2017-05-23 23:08 | EKG ---
Date Performed: 05/22/2017 Time Performed: 18:08:10 PTAGE: 71 years EKG: Possible atrial flutter with rapid ventricular response Possible LVH with secondary repolar ization abnormality Inferior/lateral ST-T changes may be due to hypertrophy and/or ischemia Abnormal ECG PREVIOUS TRACING : 05/21/2017 13.19 DOCTOR: Nas Gipson Interpretating Date/Time 05/23/2017 23:08:12
[2017-05-24] VITALS (29 sets, daily range): BP systolic 126–151; BP diastolic 64–89; PULSE 62–130; RESP 16–24; TEMP 97–98.5; O2SAT 84–97
[2017-05-24] MEDS: HEPARIN-D5W 25,000 U/250 ML 250 ML IV PRN ×2 (00:27→18:52)
[2017-05-24] MEDS: VANCOMYCIN 1,500 MG/NS 500 ML IV SCH ×4 (00:27→23:43)
[2017-05-24 01:23] LABS: AUTOMATED NEUTROPHIL # 11.8 TH/MM3 (1.8-7.7); BASOPHIL % 0.1 % (0.0-2.0); HEMATOCRIT 34.5 % (39.0-51.0); HEMOGLOBIN 11.7 GM/DL (13.0-17.0); LYMPH % 4.3 % (9.0-44.0); LYMPHOCYTE # 0.6 TH/MM3 (1.0-4.8); MEAN CELL VOLUME 83.1 FL (80.0-100.0); MEAN CORPUSCULAR HEMOGLOBIN 28.2 PG (27.0-34.0); MEAN CORPUSCULAR HGB CONC 33.9 % (32.0-36.0); MEAN PLATELET VOLUME 10.2 FL (7.0-11.0); MONO % 3.6 % (0.0-8.0); MONOCYTE # 0.5 TH/MM3 (0-0.9); PLATELET COUNT 317 TH/MM3 (150-450); RED BLOOD COUNT 4.15 MIL/MM3 (4.50-5.90); RED CELL DISTRIBUTION WIDTH 14.8 % (11.6-17.2); WHITE BLOOD COUNT 12.8 TH/MM3 (4.0-11.0)
[2017-05-24 01:48] LABS: BICARBONATE 29.2 MEQ/L (21.0-32.0); CALCIUM 8.8 MG/DL (8.5-10.1); CREATININE 1.02 MG/DL (0.60-1.30)
[2017-05-24] MEDS: RESP: ALBUTEROL 2.5 MG/IPRATROPIUM 0.5 MG NEB (PRN) NEB ×2 (05:05→11:41)
[2017-05-24] MEDS: methylPREDNISolone SOD SUCC 40 MG/1 ML VIAL IV PUSH SCH ×2 (05:39→21:31)
--- NOTE | 2017-05-24 05:59 | RADRPT ---
EXAM DATE/TIME: 05/24/2017 05:07 [facility] COMPARISON: CHEST SINGLE AP, May 21, 2017, 12:43. INDICATIONS : Shortness of breath MEDICAL HISTORY : Cardiovascular disease. Hypertension Chronic obstructive pulmonary SURGICAL HISTORY : None. ENCOUNTER: Subsequent ACUITY: 1 week PAIN SCORE: 7/10 LOCATION: Bilateral chest FINDINGS: Single AP view of the chest. Prominent bilateral diffuse pulmonary opacity and pulmonary vasculature indistinctness again seen suggesting pulmonary edema. Cardiac silhouette enlarged but unchanged. No e vidence of pneumothorax. CONCLUSION: No significant interval change with bilateral diffuse interstitial opacity again seen suggesting pulmonary edema. Niles Ruiz MD on May 24, 2017 at 5:55 Board Certified Radiologist. This report was verified electronically.
[2017-05-24] MEDS: RESP: ALBUTEROL 2.5 MG/IPRATROPIUM 0.5 MG NEB (SCH) NEB (08:04)
[2017-05-24] MEDS: POTASSIUM CHLORIDE 10 MEQ CONTROLLED RELEASE TAB PO SCH ×2 (08:34→21:29)
[2017-05-24] MEDS: FUROSEMIDE 40 MG/4 ML VIAL IV PUSH SCH ×2 (08:34→18:03)
[2017-05-24] MEDS: ATORVASTATIN 40 MG TAB PO SCH (08:35)
[2017-05-24] MEDS: ASPIRIN EC 81 MG TABEC PO SCH (08:35)
[2017-05-24] MEDS: ENALAPRIL MALEATE 10 MG TAB PO SCH ×2 (08:35→21:29)
[2017-05-24] MEDS: METOPROLOL TARTRATE 25 MG TAB PO SCH (08:35)
[2017-05-24] MEDS: INSULIN HUMAN NPH/R 70/30 1,000 UNITS/10 ML VIAL SQ SCH ×2 (09:23→21:00)
[2017-05-24] MEDS: INSULIN ASPART SUPPLEMENTAL SCALE SQ SCH ×4 (09:23→21:34)
[2017-05-24] MEDS: SODIUM HYPOCHLORITE 0.125% 500 ML BTL TOPICAL SCH (09:24)
[2017-05-24] MEDS: COLLAGENASE OINT 30 GM TUBE TOPICAL SCH (09:24)
[2017-05-24] MEDS: SODIUM CHLORIDE 0.9% FLUSH 10 ML FLUSH IV FLUSH SCH ×2 (09:24→21:30)
[2017-05-24] MEDS: DILTIAZEM 125 MG/NS 100 ML IV PRN ×2 (09:26)
--- NOTE | 2017-05-24 10:01 | PD.CAR.PN ---
CVT Progress Note Subjective/Hospital Course: 71/ male / known to our service that initially presented with complaint of worsening infection in his left ankle that he has had off and on for the last 3 weeks. He had a open wound on the outside aspect of the ankle. He has longstanding history of diabetes on insulin. He was also been complaining of some increased weakness and fatigue for the past 6 months. He said he had normally ambulated unassisted, was having more difficulty getting around due to the weakness and discomfort. Incidentally on ED admission 05/04 , his EKG some ST elevation in lead II only, however, he did have some T-wave depression in the lateral leads, some poor R-wave progression, no prior EKG to compare. He then had a troponin elevated at 1.26. He was ruled in for non-STEMI. He was taken then to the laboratory engineer by Dr. Melchor showed the LAD approximately 20% stenosis, moderate sized diagonal branches, 40% proximal stenosis, the LAD beyond the takeoff of the diagonal was 90% stenosed, the second diagonal branch had some luminal irregularities, the LAD distal had 80% lesion, left circ had a 99% subtotal occlusion and the right coronary artery had heavily calcified subtotal occlusion, ejection fraction approximately 35%. S/p left external iliac FNPS (good common femoral artery pulse) and s/p atherectomy/FNPS left posterior tibial artery. anterior tibial artery occluded. Doppler PT and AT. No vascular surgical options given poor runoff with small vessels (all distal disease). . We were consulted at his last admission to evaluate for coronary artery bypass grafting. Pt was followed closely , but was very deconditioned and was still being treated for left ankle wound infection. It was felt at that time, that the pt needed to be discharged to SNF, for aggressive PT/ OT and had a outpt f/u with Dr Alfaro in 2-3 after discharge to re-eval for surgery . He was discharged to SNF 05/17 PAST MEDICAL HISTORY: Hypertension, Uncontrolled diabetes mellitus, COPD with ongoing tobacco use , severe PAD , Excision of melanoma from the face, chronic wound on his left ankle for about 3 weeks. 05/22 pt was re-admitted to ED , worsening shortness of breath and non-productive cough , CXR showed pulm edema , BNP 1200 Trop 1.26, NSTEMI , pt has been seen and eval by Dr Wright and Dr Alfaro agree with aggressive diuresis, and will eval for surgery early next week , he still has a left ankle wound that needs wound care management , and continued ABX , last PFT showed FEV1 1.10 05/23 pt went into afib RVR last pm, now on cardizem gtt, continues on Heparin gtt on room air breath sounds improved, still few crackles in the bases scheduled for surgery on SatMay 2805/24 pt converted to NSR last evening, then received albuterol nebs, went back into afib back on cardizem drip, BB increased check mag and phos scheduled for surgery n Saturday Objective: GENERAL: SKIN: Warm and dry.dressing in tact to left ankle HEAD: Normocephalic. EYES: No scleral icterus. No injection or drainage. NECK: Supple, trachea midline. No JVD or lymphadenopathy. CARDIOVASCULAR:irregular rate and rhythm without murmurs, gallops, or rubs. RESPIRATORY: Breath sounds equal bilaterally. No accessory muscle use. diminished in bases GASTROINTESTINAL: Abdomen soft, non-tender, nondistended. MUSCULOSKELETAL: No cyanosis, or edema. BACK: Nontender without obvious deformity. No CVA tenderness. Vital Signs Date Time Temp Pulse Resp B/P (MAP) Pulse Ox O2 Delivery O2 Flow Rate FiO2 05/24/17 09:27 122 140/82 05/24/17 09:26 122 140/82 05/24/17 09:05 128 149/88 05/24/17 09:04 128 93 05/24/17 09:02 93 Nasal Cannula 4.00 05/24/17 09:00 98.0 130 24 149/88 (108) 84 05/24/17 09:00 84 Room Air 05/24/17 09:00 130 147/88 05/24/17 08:05 95 05/24/17 06:00 92 05/24/17 05:00 66 05/24/17 04:00 97.8 81 20 142/75 (97) 94 05/24/17 04:00 75 05/24/17 04:00 Room Air 05/24/17 03:00 78 05/24/17 02:00 66 05/24/17 01:00 62 05/24/17 00:28 Room Air 05/24/17 00:28 97.5 67 20 138/73 (94) 94 05/24/17 00:00 Room Air 05/24/17 00:00 62 05/24/17 00:00 98.4 76 18 126/64 (84) 95 05/23/17 23:00 66 05/23/17 22:00 82 05/23/17 21:00 86 05/23/17 20:00 97.7 92 18 133/81 (98) 93 05/23/17 20:00 75 05/23/17 20:00 Room Air 05/23/17 19:00 72 05/23/17 18:00 74 05/23/17 17:24 67 121/78 05/23/17 17:00 68 05/23/17 16:18 98.6 76 20 113/62 (79) 94 05/23/17 15:21 93 21 05/23/17 15:00 72 05/23/17 14:00 74 05/23/17 13:31 76 126/77 05/23/17 13:00 72 05/23/17 12:00 98.2 76 20 126/77 (93) 94 05/23/17 12:00 68 05/23/17 11:00 68 05/23/17 10:00 64 Labs: Laboratory Tests Test 05/24/17 00:55 05/24/17 06:00 White Blood Count 12.8 TH/MM3 (4.0-11.0) Red Blood Count 4.15 MIL/MM3 (4.50-5.90) Hemoglobin 11.7 GM/DL (13.0-17.0) Hematocrit 34.5 % (39.0-51.0) Mean Corpuscular Volume 83.1 FL (80.0-100.0) Mean Corpuscular Hemoglobin 28.2 PG (27.0-34.0) Mean Corpuscular Hemoglobin Concent 33.9 % (32.0-36.0) Red Cell Distribution Width 14.8 % (11.6-17.2) Platelet Count 317 TH/MM3 (150-450) Mean Platelet Volume 10.2 FL (7.0-11.0) Neutrophils (%) (Auto) 92.0 % (16.0-70.0) Lymphocytes (%) (Auto) 4.3 % (9.0-44.0) Monocytes (%) (Auto) 3.6 % (0.0-8.0) Eosinophils (%) (Auto) 0.0 % (0.0-4.0) Basophils (%) (Auto) 0.1 % (0.0-2.0) Neutrophils # (Auto) 11.8 TH/MM3 (1.8-7.7) Lymphocytes # (Auto) 0.6 TH/MM3 (1.0-4.8) Monocytes # (Auto) 0.5 TH/MM3 (0-0.9) Eosinophils # (Auto) 0.0 TH/MM3 (0-0.4) Basophils # (Auto) 0.0 TH/MM3 (0-0.2) CBC Comment DIFF FINAL Differential Comment Activated Partial Thromboplast Time 42.5 SEC (24.3-30.1) 43.9 SEC (24.3-30.1) Blood Urea Nitrogen 48 MG/DL (7-18) Creatinine 1.02 MG/DL (0.60-1.30) Random Glucose 181 MG/DL (74-106) Calcium Level 8.8 MG/DL (8.5-10.1) Sodium Level 140 MEQ/L (136-145) Potassium Level 4.0 MEQ/L (3.5-5.1) Chloride Level 103 MEQ/L (98-107) Carbon Dioxide Level 29.2 MEQ/L (21.0-32.0) Anion Gap 8 MEQ/L (5-15) Estimat Glomerular Filtration Rate 72 ML/MIN (>89) B-Type Natriuretic Peptide 756 PG/ML (0-100) Result Diagram: 05/24/175405/24/1754 Telemetry: NSR> Afib (1) Coronary artery disease Plan: on ASA, statin , BB heparin gtt for surgery on May 28 (2) COPD (chronic obstructive pulmonary disease) Plan: on nebs dc albuterol 2/2 afib after neb treatment (3) CHF (congestive heart failure) Plan: on diuretics (4) Afib Plan: on cardizem and heparin, BB Problem Qualifiers (1) COPD (chronic obstructive pulmonary disease): Qualified Codes: J44.1 - Chronic obstructive pulmonary disease with (acute) exacerbation (2) CHF (congestive heart failure): Qualified Codes: I50.9 - Heart failure, unspecified Teresa Peterson May 24, 2017 10:01
--- NOTE | 2017-05-24 10:07 | HHI.PR ---
Subjective Remarks slept well, no reported issues. up at bedside. Objective Laboratory Tests Test 05/21/17 12:58 05/21/17 19:35 05/22/17 01:35 05/22/17 04:20 Neutrophils (%) (Auto) 81.8 % (16.0-70.0) Lymphocytes (%) (Auto) 8.4 % (9.0-44.0) Neutrophils # (Auto) 8.6 TH/MM3 (1.8-7.7) Lymphocytes # (Auto) 0.9 TH/MM3 (1.0-4.8) Blood Urea Nitrogen 22 MG/DL (7-18) 29 MG/DL (7-18) Random Glucose 169 MG/DL (74-106) 144 MG/DL (74-106) Albumin 2.2 GM/DL (3.4-5.0) 2.1 GM/DL (3.4-5.0) Alkaline Phosphatase 133 U/L (45-117) 123 U/L (45-117) Estimat Glomerular Filtration Rate 70 ML/MIN (>89) 77 ML/MIN (>89) Troponin I 0.19 NG/ML (0.02-0.05) 0.94 NG/ML (0.02-0.05) 1.37 NG/ML (0.02-0.05) B-Type Natriuretic Peptide 1205 PG/ML (0-100) Activated Partial Thromboplast Time 37.4 SEC (24.3-30.1) Calcium Level 8.4 MG/DL (8.5-10.1) Test 05/22/17 08:10 05/22/17 15:20 05/23/17 05:20 05/23/17 13:12 Activated Partial Thromboplast Time 51.6 SEC (24.3-30.1) 40.6 SEC (24.3-30.1) 43.0 SEC (24.3-30.1) 37.8 SEC (24.3-30.1) White Blood Count 14.6 TH/MM3 (4.0-11.0) Red Blood Count 4.37 MIL/MM3 (4.50-5.90) Hemoglobin 12.2 GM/DL (13.0-17.0) Hematocrit 36.6 % (39.0-51.0) Neutrophils (%) (Auto) 91.9 % (16.0-70.0) Lymphocytes (%) (Auto) 5.2 % (9.0-44.0) Neutrophils # (Auto) 13.4 TH/MM3 (1.8-7.7) Lymphocytes # (Auto) 0.8 TH/MM3 (1.0-4.8) Erythrocyte Sedimentation Rate 40 mm/hr (0-20) Estimat Glomerular Filtration Rate 73 ML/MIN (>89) Test 05/24/17 00:55 05/24/17 06:00 White Blood Count 12.8 TH/MM3 (4.0-11.0) Red Blood Count 4.15 MIL/MM3 (4.50-5.90) Hemoglobin 11.7 GM/DL (13.0-17.0) Hematocrit 34.5 % (39.0-51.0) Neutrophils (%) (Auto) 92.0 % (16.0-70.0) Lymphocytes (%) (Auto) 4.3 % (9.0-44.0) Neutrophils # (Auto) 11.8 TH/MM3 (1.8-7.7) Lymphocytes # (Auto) 0.6 TH/MM3 (1.0-4.8) Activated Partial Thromboplast Time 42.5 SEC (24.3-30.1) 43.9 SEC (24.3-30.1) Blood Urea Nitrogen 48 MG/DL (7-18) Random Glucose 181 MG/DL (74-106) Estimat Glomerular Filtration Rate 72 ML/MIN (>89) B-Type Natriuretic Peptide 756 PG/ML (0-100) Vital Signs Date Time Temp Pulse Resp B/P (MAP) Pulse Ox O2 Delivery O2 Flow Rate FiO2 05/24/17 09:27 122 140/82 05/24/17 09:26 122 140/82 05/24/17 09:05 128 149/88 05/24/17 09:04 128 93 05/24/17 09:02 93 Nasal Cannula 4.00 05/24/17 09:00 98.0 130 24 149/88 (108) 84 05/24/17 09:00 84 Room Air 05/24/17 09:00 130 147/88 05/24/17 08:05 95 05/24/17 06:00 92 05/24/17 05:00 66 05/24/17 04:00 97.8 81 20 142/75 (97) 94 05/24/17 04:00 75 05/24/17 04:00 Room Air 05/24/17 03:00 78 05/24/17 02:00 66 05/24/17 01:00 62 05/24/17 00:28 Room Air 05/24/17 00:28 97.5 67 20 138/73 (94) 94 05/24/17 00:00 Room Air 05/24/17 00:00 62 05/24/17 00:00 98.4 76 18 126/64 (84) 95 05/23/17 23:00 66 05/23/17 22:00 82 05/23/17 21:00 86 05/23/17 20:00 97.7 92 18 133/81 (98) 93 05/23/17 20:00 75 05/23/17 20:00 Room Air 05/23/17 19:00 72 05/23/17 18:00 74 05/23/17 17:24 67 121/78 05/23/17 17:00 68 05/23/17 16:18 98.6 76 20 113/62 (79) 94 05/23/17 15:21 93 21 05/23/17 15:00 72 05/23/17 14:00 74 05/23/17 13:31 76 126/77 05/23/17 13:00 72 05/23/17 12:00 98.2 76 20 126/77 (93) 94 05/23/17 12:00 68 05/23/17 11:00 68 I/O 05/23/17 05/23/17 05/23/17 05/24/17 05/24/17 05/24/17 07:00 15:00 23:00 07:00 15:00 23:00 Intake Total 515 ml 266.3 ml 480 ml 740 ml 5 ml Output Total 675 ml 675 ml 1110 ml Balance 515 ml -408.7 ml -195 ml -370 ml 5 ml Intake Oral 240 ml 480 ml 240 ml IV Total 515 ml 26.3 ml 500 ml 5 ml Output Urine Total 675 ml 675 ml 1110 ml # Voids 3 # Bowel Movements 1 1 0 Result Diagram: 12/29/17 0055 12/29/17 0055 Assessment and Plan Assessment and Plan Assessment and Plan 05/23/17 NSTEMI: denies any chest discomfort. On heparin gtt, scheduled for surgery Saturday Afib- was in NSR until this am then went back to Afib currently on cardizem drip CHF: Lasix IV BID. O2 3 liters with o2 sats at 92 % BNP this am 756 Osteomyelitis: Left foot wound care On IV vancomycin, followed by ID HLD: continue statin COPD: on steroids and duonebs CXR this am shows no change, pulmonary edema. Daniela Barrios May 24, 2017 10:07
[2017-05-24] MEDS ORDERED: METOPROLOL TARTRATE 25 MG TAB PO ONE (10:15)
[2017-05-24 11:40] LABS: MAGNESIUM 2.4 MG/DL (1.5-2.5); PHOSPHORUS 3.6 MG/DL (2.5-4.9)
--- NOTE | 2017-05-24 13:12 | PD.CARD.PN ---
Subjective Subjective Remarks No CP, SOB improving, paroxysmal AF w RVR controlled with IV dilt Objective Medications Current Medications Medications (Trade) Dose Ordered Sig/Tatyana Route Start Time Stop Time Status Last Admin (Heparin Inj) 5,000 units UNSCH PRN IV PUSH 05/21/17 21:45 (Heparin Inj) 2,500 units UNSCH PRN IV PUSH 05/21/17 21:45 05/22/17 02:30 Heparin Sodium/ Dextrose 250 ml @ 10 mls/hr TITRATE PRN IV 05/21/17 15:45 05/24/17 00:27 (KCl) 10 meq BID PO 05/21/17 21:00 05/24/17 08:34 (Glucagon Inj) 1 mg UNSCH PRN OTHER 05/21/17 16:15 (NovoLOG SUPPLEMENTAL SCALE) 1 ACHS SLIDING SCALE SQ 05/21/17 17:00 05/24/17 09:23 (Ecotrin Ec) 81 mg DAILY PO 05/22/17 09:00 05/24/17 08:35 (Lipitor) 40 mg DAILY PO 05/22/17 09:00 05/24/17 08:35 (Vasotec) 20 mg BID PO 05/21/17 21:00 05/24/17 21:00 05/24/17 08:35 (NovoLIN 70/30 INJ) 15 units BID SQ 05/21/17 21:00 05/24/17 09:23 (Duoneb Neb) 1 ampule Q2HR NEB PRN NEB 05/21/17 16:15 05/24/17 11:41 (Lasix Inj) 40 mg BID@09,18 IV PUSH 05/22/17 09:00 05/24/17 08:34 Pharmacy Profile Note 0 ml @ 0 mls/hr UNSCH OTHER 05/22/17 11:45 Vancomycin HCl 1500 mg/Sodium Chloride 515 ml @ 257.5 mls/ hr Q24H IV 05/23/17 00:00 05/24/17 00:27 Miscellaneous Information SPECIFIC LAB TO BE DRAWN:VANCOMYCIN DATE TO BE DRToo.. ONCE ONCE .XX 05/25/17 23:45 05/25/17 23:46 Diltiazem HCl 125 mg/Sodium Chloride 125 ml @ 5 mls/hr TITRATE PRN IV 05/22/17 18:30 05/24/17 09:26 (Dakin'S 0.125% Soln) 50 ml DAILY TOPICAL 05/22/17 20:32 05/24/17 09:24 (Santyl Oint) 1 applic DAILY TOPICAL 05/22/17 20:34 05/24/17 09:24 (NS Flush) 2 ml BID IV FLUSH 05/23/17 09:00 05/24/17 09:24 (NS Flush) 2 ml UNSCH PRN IV FLUSH 05/23/17 09:00 Papaverine HCl 60 mg/Nitroglycerin 100 mcg/Diltiazem HCl 100 mg/Sodium Chloride 100 ml @ 0 mls/hr MULTIMEDIA SPECIALIST IRRIGATION 05/23/17 09:00 05/30/17 08:59 Cefazolin Sodium 500 mg/Sodium Chloride 505 ml @ 0 mls/hr MULTIMEDIA SPECIALIST IRRIGATION 05/23/17 09:00 05/30/17 08:59 Cefazolin Sodium/ Dextrose 50 ml @ 150 mls/hr MULTIMEDIA SPECIALIST IV 05/23/17 09:00 05/30/17 08:59 (Lopressor) 12.5 mg MULTIMEDIA SPECIALIST PO 05/23/17 09:00 05/30/17 08:59 (Hibiclens 4% Top Soln) 1 applic MULTIMEDIA SPECIALIST TOPICAL 05/23/17 09:00 05/30/17 08:59 Insulin Human Regular 100 units/ Sodium Chloride 100 ml @ 3 mls/hr TITRATE PRN IV 05/23/17 09:00 05/30/17 08:59 (D50w (Vial) Inj) 50 ml UNSCH PRN IV PUSH 05/23/17 09:00 ([facility] [place] [facility]) @ 700--HOLD CARDIZEM ... TITRATE PRN OTHER 05/23/17 17:15 (SoluMEDROL INJ) 40 mg Q12HR IV PUSH 05/24/17 21:00 (Lopressor) 50 mg Q12HR PO 05/24/17 21:00 (Atrovent Neb) 0.5 mg Q6HR WHILE AWAKE NEB NEB 05/24/17 14:00 Vital Signs / I&O Vital Signs Date Time Temp Pulse Resp B/P (MAP) Pulse Ox O2 Delivery O2 Flow Rate FiO2 05/24/17 11:57 98.2 75 18 145/75 (98) 95 05/24/17 11:00 85 140/70 05/24/17 09:27 122 140/82 05/24/17 09:26 122 140/82 05/24/17 09:05 128 149/88 05/24/17 09:04 128 93 05/24/17 09:02 93 Nasal Cannula 4.00 05/24/17 09:00 98.0 130 24 149/88 (108) 84 05/24/17 09:00 84 Room Air 05/24/17 09:00 130 147/88 05/24/17 08:05 95 05/24/17 06:00 92 05/24/17 05:00 66 05/24/17 04:00 97.8 81 20 142/75 (97) 94 05/24/17 04:00 75 05/24/17 04:00 Room Air 05/24/17 03:00 78 05/24/17 02:00 66 05/24/17 01:00 62 05/24/17 00:28 Room Air 05/24/17 00:28 97.5 67 20 138/73 (94) 94 05/24/17 00:00 Room Air 05/24/17 00:00 62 05/24/17 00:00 98.4 76 18 126/64 (84) 95 05/23/17 23:00 66 05/23/17 22:00 82 05/23/17 21:00 86 05/23/17 20:00 97.7 92 18 133/81 (98) 93 05/23/17 20:00 75 05/23/17 20:00 Room Air 05/23/17 19:00 72 05/23/17 18:00 74 05/23/17 17:24 67 121/78 05/23/17 17:00 68 05/23/17 16:18 98.6 76 20 113/62 (79) 94 05/23/17 15:21 93 21 05/23/17 15:00 72 05/23/17 14:00 74 05/23/17 13:31 76 126/77 I/O 05/23/17 05/23/17 05/23/17 05/24/17 05/24/17 05/24/17 07:00 15:00 23:00 07:00 15:00 23:00 Intake Total 515 ml 266.3 ml 480 ml 740 ml 23 ml Output Total 675 ml 675 ml 1110 ml Balance 515 ml -408.7 ml -195 ml -370 ml 23 ml Intake Oral 240 ml 480 ml 240 ml IV Total 515 ml 26.3 ml 500 ml 23 ml Output Urine Total 675 ml 675 ml 1110 ml # Voids 3 # Bowel Movements 1 1 0 Physical Exam GENERAL: In NAD SKIN: Warm and dry. HEAD: Normocephalic. EYES: No scleral icterus. No injection or drainage. NECK: Supple, trachea midline. No JVD or lymphadenopathy. CARDIOVASCULAR: Irreg, 1/6 syst murmur, no gallops or rubs. RESPIRATORY: Breath sounds equal bilaterally. No accessory muscle use. GASTROINTESTINAL: Abdomen soft, non-tender, nondistended. MUSCULOSKELETAL: No cyanosis, trace edema. Laboratory Laboratory Tests Test 05/23/17 13:12 05/24/17 00:55 05/24/17 06:00 Activated Partial Thromboplast Time 37.8 SEC 42.5 SEC 43.9 SEC White Blood Count 12.8 TH/MM3 Red Blood Count 4.15 MIL/MM3 Hemoglobin 11.7 GM/DL Hematocrit 34.5 % Mean Corpuscular Volume 83.1 FL Mean Corpuscular Hemoglobin 28.2 PG Mean Corpuscular Hemoglobin Concent 33.9 % Red Cell Distribution Width 14.8 % Platelet Count 317 TH/MM3 Mean Platelet Volume 10.2 FL Neutrophils (%) (Auto) 92.0 % Lymphocytes (%) (Auto) 4.3 % Monocytes (%) (Auto) 3.6 % Eosinophils (%) (Auto) 0.0 % Basophils (%) (Auto) 0.1 % Neutrophils # (Auto) 11.8 TH/MM3 Lymphocytes # (Auto) 0.6 TH/MM3 Monocytes # (Auto) 0.5 TH/MM3 Eosinophils # (Auto) 0.0 TH/MM3 Basophils # (Auto) 0.0 TH/MM3 CBC Comment DIFF FINAL Differential Comment Blood Urea Nitrogen 48 MG/DL Creatinine 1.02 MG/DL Random Glucose 181 MG/DL Calcium Level 8.8 MG/DL Sodium Level 140 MEQ/L Potassium Level 4.0 MEQ/L Chloride Level 103 MEQ/L Carbon Dioxide Level 29.2 MEQ/L Anion Gap 8 MEQ/L Estimat Glomerular Filtration Rate 72 ML/MIN Phosphorus Level 3.6 MG/DL Magnesium Level 2.4 MG/DL B-Type Natriuretic Peptide 756 PG/ML Imaging Last 24 hours Impressions Chest X-Ray 05/24/17 0600 Signed Impressions: Service Date/Time: Wednesday, May 24, 2017 05:07 - CONCLUSION: No significant interval change with bilateral diffuse interstitial opacity again seen suggesting pulmonary edema. Niles Ruiz MD Assessment and Plan Problem List: (1) Coronary artery disease ICD Codes: I25.10 - Atherosclerotic heart disease of [place] coronary artery without angina pectoris (2) COPD (chronic obstructive pulmonary disease) ICD Codes: J44.9 - Chronic obstructive pulmonary disease, unspecified (3) CHF (congestive heart failure) ICD Codes: I50.9 - Heart failure, unspecified (4) Afib ICD Codes: I48.91 - Unspecified atrial fibrillation Assessment and Plan Tele shows paroxysmal AF w RVR, continue IV diltiazem as needed for rate control. No angina. Diabetic ulcer will not heal until LE revascularized, seen by Dr. Jolly. Continue abxs as per ID. CABG will need to be done first, tentatively scheduled for next Tue with Dr. Alfaro. Continue monitoring on tele. Aggressive risk factor modification. Problem Qualifiers (1) COPD (chronic obstructive pulmonary disease): Qualified Codes: J44.1 - Chronic obstructive pulmonary disease with (acute) exacerbation (2) CHF (congestive heart failure): Qualified Codes: I50.9 - Heart failure, unspecified Michelle Nick MD May 24, 2017 13:12
--- NOTE | 2017-05-24 13:12 | HHI.IDPN ---
Note Infectious Disease Note Patient feels okay. Afebrile. No pain in ankle. Plans for cardiac surgery next week. PAST MEDICAL HISTORY 1. Congestive heart failure 2. COPD 3. Diabetes mellitus 4. Hypertension 5. Coronary artery disease 6. Cardiomyopathy 7. Hypercholesteremia ALLERGIES ACETAMINOPHEN, CODEINE, PROPOXYPHENE. MEDICATIONS Current Medications Medications (Trade) Dose Ordered Sig/Tatyana Route PRN Reason Start Time Stop Time Status Last Admin Dose Admin Heparin Sodium (Porcine) (Heparin Inj) 5,000 units UNSCH PRN IV PUSH APTT LESS THAN 25 05/21/17 21:45 Heparin Sodium (Porcine) (Heparin Inj) 2,500 units UNSCH PRN IV PUSH APTT 25 TO 39 05/21/17 21:45 05/22/17 02:30 Heparin Sodium/ Dextrose 250 ml @ 10 mls/hr TITRATE PRN IV Coagulation Management 05/21/17 15:45 05/24/17 00:27 Potassium Chloride (KCl) 10 meq BID PO 05/21/17 21:00 05/24/17 08:34 Glucagon (Glucagon Inj) 1 mg UNSCH PRN OTHER HYPOGLYCEMIA-SEE COMMENTS 05/21/17 16:15 Insulin Aspart (NovoLOG SUPPLEMENTAL SCALE) 1 ACHS SLIDING SCALE SQ 05/21/17 17:00 05/24/17 09:23 Aspirin (Ecotrin Ec) 81 mg DAILY PO 05/22/17 09:00 05/24/17 08:35 Atorvastatin Calcium (Lipitor) 40 mg DAILY PO 05/22/17 09:00 05/24/17 08:35 Enalapril Maleate (Vasotec) 20 mg BID PO 05/21/17 21:00 05/24/17 21:00 05/24/17 08:35 Insulin Human Isoph/Insulin Regular (NovoLIN 70/30 INJ) 15 units BID SQ 05/21/17 21:00 05/24/17 09:23 Albuterol/ Ipratropium (Duoneb Neb) 1 ampule Q2HR NEB PRN NEB short of breath 05/21/17 16:15 05/24/17 11:41 Furosemide (Lasix Inj) 40 mg BID@09,18 IV PUSH 05/22/17 09:00 05/24/17 08:34 Pharmacy Profile Note 0 ml @ 0 mls/hr UNSCH OTHER 05/22/17 11:45 Vancomycin HCl 1500 mg/Sodium Chloride 515 ml @ 257.5 mls/ hr Q24H IV 05/23/17 00:00 05/24/17 00:27 Miscellaneous Information SPECIFIC LAB TO BE DRAWN:VANCOMYCIN DATE TO BE DRJanice. ONCE ONCE .XX 05/25/17 23:45 05/25/17 23:46 Diltiazem HCl 125 mg/Sodium Chloride 125 ml @ 5 mls/hr TITRATE PRN IV Tachycardia 05/22/17 18:30 05/24/17 09:26 Sodium Hypochlorite (Dakin'S 0.125% Soln) 50 ml DAILY TOPICAL 05/22/17 20:32 05/24/17 09:24 Collagenase (Santyl Oint) 1 applic DAILY TOPICAL 05/22/17 20:34 05/24/17 09:24 Sodium Chloride (NS Flush) 2 ml BID IV FLUSH 05/23/17 09:00 05/24/17 09:24 Sodium Chloride (NS Flush) 2 ml UNSCH PRN IV FLUSH FLUSH AFTER USING IV ACCESS 05/23/17 09:00 Papaverine HCl 60 mg/Nitroglycerin 100 mcg/Diltiazem HCl 100 mg/Sodium Chloride 100 ml @ 0 mls/hr SAS ETL DEVELOPER IRRIGATION 05/23/17 09:00 05/30/17 08:59 Cefazolin Sodium 500 mg/Sodium Chloride 505 ml @ 0 mls/hr SAS ETL DEVELOPER IRRIGATION 05/23/17 09:00 05/30/17 08:59 Cefazolin Sodium/ Dextrose 50 ml @ 150 mls/hr SAS ETL DEVELOPER IV 05/23/17 09:00 05/30/17 08:59 Metoprolol Tartrate (Lopressor) 12.5 mg SAS ETL DEVELOPER PO 05/23/17 09:00 05/30/17 08:59 Chlorhexidine Gluconate (Hibiclens 4% Top Soln) 1 applic SAS ETL DEVELOPER TOPICAL 05/23/17 09:00 05/30/17 08:59 Insulin Human Regular 100 units/ Sodium Chloride 100 ml @ 3 mls/hr TITRATE PRN IV for blood glucose control 05/23/17 09:00 05/30/17 08:59 Dextrose (D50w (Vial) Inj) 50 ml UNSCH PRN IV PUSH HYPOGLYCEMIA-SEE COMMENTS 05/23/17 09:00 Miscellaneous Medication [place] [place] [facility] [place] @ 700--HOLD CARDIZEM ... TITRATE PRN OTHER SEE LABEL COMMENTS 05/23/17 17:15 Methylprednisolone Sodium Succinate (SoluMEDROL INJ) 40 mg Q12HR IV PUSH 05/24/17 21:00 Metoprolol Tartrate (Lopressor) 50 mg Q12HR PO 05/24/17 21:00 Ipratropium [place] (Atrovent Neb) 0.5 mg Q6HR WHILE AWAKE NEB NEB 05/24/17 14:00 OBJECTIVE: Vital Signs Date Time Temp Pulse Resp B/P (MAP) Pulse Ox O2 Delivery O2 Flow Rate FiO2 05/24/17 11:57 98.2 75 18 145/75 (98) 95 05/24/17 11:00 85 140/70 05/24/17 09:27 122 140/82 05/24/17 09:26 122 140/82 05/24/17 09:05 128 149/88 05/24/17 09:04 128 93 05/24/17 09:02 93 Nasal Cannula 4.00 05/24/17 09:00 98.0 130 24 149/88 (108) 84 05/24/17 09:00 84 Room Air 05/24/17 09:00 130 147/88 05/24/17 08:05 95 05/24/17 06:00 92 05/24/17 05:00 66 05/24/17 04:00 97.8 81 20 142/75 (97) 94 05/24/17 04:00 75 05/24/17 04:00 Room Air 05/24/17 03:00 78 05/24/17 02:00 66 05/24/17 01:00 62 05/24/17 00:28 Room Air 05/24/17 00:28 97.5 67 20 138/73 (94) 94 05/24/17 00:00 Room Air 05/24/17 00:00 62 05/24/17 00:00 98.4 76 18 126/64 (84) 95 05/23/17 23:00 66 05/23/17 22:00 82 05/23/17 21:00 86 05/23/17 20:00 97.7 92 18 133/81 (98) 93 05/23/17 20:00 75 05/23/17 20:00 Room Air 05/23/17 19:00 72 05/23/17 18:00 74 05/23/17 17:24 67 121/78 05/23/17 17:00 68 05/23/17 16:18 98.6 76 20 113/62 (79) 94 05/23/17 15:21 93 21 05/23/17 15:00 72 05/23/17 14:00 74 05/23/17 13:31 76 126/77 Laboratory Tests Test 05/23/17 05:20 05/24/17 00:55 White Blood Count 14.6 TH/MM3 12.8 TH/MM3 Red Blood Count 4.37 MIL/MM3 4.15 MIL/MM3 Hemoglobin 12.2 GM/DL 11.7 GM/DL Hematocrit 36.6 % 34.5 % Mean Corpuscular Volume 83.8 FL 83.1 FL Mean Corpuscular Hemoglobin 27.9 PG 28.2 PG Mean Corpuscular Hemoglobin Concent 33.3 % 33.9 % Red Cell Distribution Width 14.9 % 14.8 % Platelet Count 320 TH/MM3 317 TH/MM3 Mean Platelet Volume 9.6 FL 10.2 FL Neutrophils (%) (Auto) 91.9 % 92.0 % Lymphocytes (%) (Auto) 5.2 % 4.3 % Monocytes (%) (Auto) 2.7 % 3.6 % Eosinophils (%) (Auto) 0.0 % 0.0 % Basophils (%) (Auto) 0.2 % 0.1 % Neutrophils # (Auto) 13.4 TH/MM3 11.8 TH/MM3 Lymphocytes # (Auto) 0.8 TH/MM3 0.6 TH/MM3 Monocytes # (Auto) 0.4 TH/MM3 0.5 TH/MM3 Eosinophils # (Auto) 0.0 TH/MM3 0.0 TH/MM3 Basophils # (Auto) 0.0 TH/MM3 0.0 TH/MM3 CBC Comment DIFF FINAL DIFF FINAL Differential Comment Erythrocyte Sedimentation Rate 40 mm/hr Laboratory Tests Test 05/23/17 05:20 05/24/17 00:55 Creatinine 1.01 MG/DL 1.02 MG/DL Estimat Glomerular Filtration Rate 73 ML/MIN 72 ML/MIN Blood Urea Nitrogen 48 MG/DL Random Glucose 181 MG/DL Calcium Level 8.8 MG/DL Sodium Level 140 MEQ/L Potassium Level 4.0 MEQ/L Chloride Level 103 MEQ/L Carbon Dioxide Level 29.2 MEQ/L Anion Gap 8 MEQ/L Phosphorus Level 3.6 MG/DL Magnesium Level 2.4 MG/DL B-Type Natriuretic Peptide 756 PG/ML PHYSICAL EXAMINATION GENERAL: No acute distress. HEENT: Head atraumatic. Extraocular movements grossly intact, pupils reactive to light. No icterus. Oropharynx moist mucosa without visible lesions. NECK: Supple. No adenopathy. LUNGS: Slight rhonchi at both bases. HEART: Regular S1-S2. No murmurs, rubs or gallops. EXTREMITIES: The left ankle laterally has a superficial necrotic eschar approximately the size of a quarter coin which is surrounded by erythema. The area of the necrosis of the necrotic eschar is very dry. No drainage. No tenderness. The patient has a tiny eschar at the right second toe dorsum distally. There is dryness of the skin at the left distal tibia. Pulses at the left posterior tibial and dorsalis pedis are thready and barely palpable. There is a PICC line at the right upper extremity. The right upper extremity is intact and has no erythema or tenderness. IMPRESSION Osteomyelitis involving the left ankle. Prior culture with MRSA and group A strep. RECOMMENDATIONS Continue the vancomycin until 06/17/17. Yared Resendez MD May 24, 2017 13:12
[2017-05-24] MEDS: RESP: IPRATROPIUM 0.5 MG/2.5 ML NEB NEB SCH ×2 (14:00→19:44)
[2017-05-24] MEDS: METOPROLOL TARTRATE 50 MG TAB PO SCH (21:30)
[2017-05-25] VITALS (28 sets, daily range): BP systolic 134–154; BP diastolic 73–95; PULSE 55–86; RESP 16–20; TEMP 98–98.2; O2SAT 93–99
[2017-05-25] MEDS: HEPARIN SODIUM - IV 10,000 UNITS/10 ML VIAL IV PUSH PRN (05:15)
[2017-05-25 05:17] LABS: CREATININE 1.04 MG/DL (0.60-1.30)
[2017-05-25] MEDS: INSULIN ASPART SUPPLEMENTAL SCALE SQ SCH ×4 (08:00→20:33)
[2017-05-25] MEDS: POTASSIUM CHLORIDE 10 MEQ CONTROLLED RELEASE TAB PO SCH ×2 (08:22→20:30)
[2017-05-25] MEDS: RESP: IPRATROPIUM 0.5 MG/2.5 ML NEB NEB SCH ×3 (08:22→20:14)
[2017-05-25] MEDS: ATORVASTATIN 40 MG TAB PO SCH (08:22)
[2017-05-25] MEDS: ASPIRIN EC 81 MG TABEC PO SCH (08:22)
[2017-05-25] MEDS: METOPROLOL TARTRATE 50 MG TAB PO SCH ×2 (08:22→20:30)
[2017-05-25] MEDS: methylPREDNISolone SOD SUCC 40 MG/1 ML VIAL IV PUSH SCH ×2 (08:23→20:32)
[2017-05-25] MEDS: SODIUM CHLORIDE 0.9% FLUSH 10 ML FLUSH IV FLUSH SCH ×2 (08:23→20:32)
[2017-05-25] MEDS: INSULIN HUMAN NPH/R 70/30 1,000 UNITS/10 ML VIAL SQ SCH ×2 (08:23→20:32)
[2017-05-25] MEDS: FUROSEMIDE 40 MG/4 ML VIAL IV PUSH SCH ×2 (08:23→17:23)
[2017-05-25] MEDS: SODIUM HYPOCHLORITE 0.125% 500 ML BTL TOPICAL SCH (08:25)
[2017-05-25] MEDS: COLLAGENASE OINT 30 GM TUBE TOPICAL SCH (08:25)
--- NOTE | 2017-05-25 13:18 | HHI.PR ---
Subjective Remarks vss afebrile no tachacardia Objective Vital Signs Date Time Temp Pulse Resp B/P (MAP) Pulse Ox O2 Delivery O2 Flow Rate FiO2 05/25/17 12:02 67 05/25/17 11:56 98.2 64 18 154/95 (114) 95 05/25/17 11:56 64 05/25/17 10:01 63 05/25/17 09:20 70 05/25/17 08:24 93 Nasal Cannula 2.00 05/25/17 08:15 98.0 74 20 154/89 (110) 94 05/25/17 08:15 94 Nasal Cannula 2.00 05/25/17 08:15 67 05/25/17 06:00 66 05/25/17 05:00 68 05/25/17 04:00 66 05/25/17 03:39 86 16 148/78 (101) 94 05/25/17 03:00 64 05/25/17 02:00 64 05/25/17 01:00 62 05/25/17 00:00 62 05/24/17 23:40 65 18 146/79 (101) 95 05/24/17 23:00 63 05/24/17 22:00 76 05/24/17 21:00 78 05/24/17 20:00 74 05/24/17 19:55 97.0 94 16 139/73 (95) 97 05/24/17 19:55 97 Nasal Cannula 2.00 05/24/17 19:46 96 Nasal Cannula 2.00 05/24/17 19:00 73 05/24/17 15:50 98.5 89 20 151/89 (109) 94 05/24/17 15:00 72 05/24/17 14:00 74 I/O 05/24/17 05/24/17 05/24/17 05/25/17 05/25/17 05/25/17 07:00 15:00 23:00 07:00 15:00 23:00 Intake Total 740 ml 23 ml 1200 ml 610 ml Output Total 1110 ml 2000 ml 800 ml Balance -370 ml 23 ml -800 ml -190 ml Intake Oral 240 ml 1200 ml 480 ml IV Total 500 ml 23 ml 130 ml Output Urine Total 1110 ml 2000 ml 800 ml # Voids 3 # Bowel Movements 0 0 1 Result Diagram: 05/24/17 0055 05/25/17 0439 Imaging Last Impressions Chest X-Ray 05/24/17 0600 Signed Impressions: Service Date/Time: Wednesday, May 24, 2017 05:07 - CONCLUSION: No significant interval change with bilateral diffuse interstitial opacity again seen suggesting pulmonary edema. Niles Ruiz MD Objective Remarks GENERAL: Well-nourished, well-developed patient. SKIN: Warm and dry. HEAD: Normocephalic. EYES: No scleral icterus. No injection or drainage. NECK: Supple, trachea midline. No JVD or lymphadenopathy. CARDIOVASCULAR: Regular rate and rhythm without murmurs, gallops, or rubs. RESPIRATORY: Breath sounds equal bilaterally. No accessory muscle use.sounds decreased in bases GASTROINTESTINAL: Abdomen soft, non-tender, nondistended. EXTREMITIES: No cyanosis, or edema. open wound ankle NEUROLOGICAL: Awake, alert, and oriented x 3. Non-focal. Medications and IVs Inpatient Medications Albuterol/ Ipratropium (Duoneb Neb) 1 ampule Q2HR NEB PRN NEB short of breath Last administered on 05/24/17 11:41; Start 05/21/17 at 16:15 Aspirin (Aspirin Chew) 324 mg ONCE ONCE CHEW Last administered on 05/21/17 14:09; Start 05/21/17 at 14:00; Stop 05/21/17 at 14:01; Status DC Aspirin (Ecotrin Ec) 81 mg DAILY PO Last administered on 05/25/17 08:22; Start 05/22/17 at 09:00 Atorvastatin Calcium (Lipitor) 40 mg DAILY PO Last administered on 05/25/17 08:22; Start 05/22/17 at 09:00 Cefazolin Sodium 500 mg/Sodium Chloride 505 ml @ 0 mls/hr LOG HANDLING EQUIPMENT OPERATOR IRRIGATION ; Start 05/23/17 at 09:00; Stop 05/30/17 at 08:59 Cefazolin Sodium/ Dextrose 50 ml @ 150 mls/hr LOG HANDLING EQUIPMENT OPERATOR IV ; Start 05/23/17 at 09:00; Stop 05/30/17 at 08:59 Chlorhexidine Gluconate (Hibiclens 4% Top Soln) 1 applic LOG HANDLING EQUIPMENT OPERATOR TOPICAL ; Start 05/23/17 at 09:00; Stop 05/30/17 at 08:59 Collagenase (Santyl Oint) 1 applic DAILY TOPICAL Last administered on 08:25; Start 05/22/17 at 20:34 Dextrose (D50w (Vial) Inj) 50 ml UNSCH PRN IV PUSH HYPOGLYCEMIA-SEE COMMENTS; Start 05/23/17 at 09:00 Diltiazem HCl 125 mg/Sodium Chloride 125 ml @ 5 mls/hr TITRATE PRN IV Tachycardia Last administered on 05/24/17 09:26; Start 05/22/17 at 18:30 Enalapril Maleate (Vasotec) 20 mg BID PO Last administered on 05/24/17 21:29 ; Start 05/21/17 at 21:00; Stop 05/24/17 at 21:00; Status DC Furosemide (Lasix Inj) 40 mg BID@09,18 IV PUSH Last administered on 05/25/17 08:23; Start 05/22/17 at 09:00 Furosemide (Lasix) 20 mg DAILY PO ; Start 05/23/17 at 09:00; Stop 05/23/17 at 09:00; Status DC Glucagon (Glucagon Inj) 1 mg UNSCH PRN OTHER HYPOGLYCEMIA-SEE COMMENTS; Start 05/21/17 at 16:15 Heparin Sodium (Porcine) (Heparin Inj) 2,500 units UNSCH PRN IV PUSH APTT 25 TO 39 Last administered on 05/25/17 05:15; Start 05/21/17 at 21:45 Heparin Sodium/ Dextrose 250 ml @ 10 mls/hr TITRATE PRN IV Coagulation Management Last administered on 05/24/17 18:52; Start 05/21/17 at 15:45 Insulin Aspart (NovoLOG SUPPLEMENTAL SCALE) 1 ACHS SLIDING SCALE SQ Last administered on 05/25/17 12:00; Start 05/21/17 at 17:00 Insulin Human Isoph/Insulin Regular (NovoLIN 70/30 INJ) 15 units BID SQ Last administered on 05/25/17 08:23; Start 05/21/17 at 21:00 Insulin Human Regular 100 units/ Sodium Chloride 100 ml @ 3 mls/hr TITRATE PRN IV for blood glucose control; Start 05/23/17 at 09:00; Stop 05/30/17 at 08:59 Ipratropium [place] (Atrovent Neb) 0.5 mg Q6HR WHILE AWAKE NEB NEB Last administered on 05/25/17 08:22; Start 05/24/17 at 14:00 Methylprednisolone Sodium Succinate (SoluMEDROL INJ) 40 mg Q12HR IV PUSH Last administered on 05/25/17 08:23; Start 05/24/17 at 21:00 Metoprolol Tartrate (Lopressor) 25 mg ONCE ONCE PO Last administered on 11:54; Start 05/24/17 at 10:15; Stop 05/24/17 at 10:16; Status DC Miscellaneous Information SPECIFIC LAB TO BE DRAWN:VANCOMYCIN DATE TO BE DR... ONCE ONCE .XX ; Start 05/25/17 at 23:45; Stop 05/25/17 at 23:46 Miscellaneous Medication [place] [place] @ 700--HOLD CARDIZEM ... TITRATE PRN OTHER SEE LABEL COMMENTS; Start 05/23/17 at 17:15 Papaverine HCl 60 mg/Nitroglycerin 100 mcg/Diltiazem HCl 100 mg/Sodium Chloride 100 ml @ 0 mls/hr LOG HANDLING EQUIPMENT OPERATOR IRRIGATION ; Start 05/23/17 at 09:00; Stop 05/30/17 at 08:59 Pharmacy Profile Note 0 ml @ 0 mls/hr UNSCH OTHER ; Start 05/22/17 at 11:45 Potassium Chloride (KCl) 10 meq BID PO Last administered on 05/25/17 08:22; Start 05/21/17 at 21:00 Sodium Hypochlorite (Dakin'S 0.125% Soln) 50 ml DAILY TOPICAL Last administered on 05/25/17 08:25; Start 05/22/17 at 20:32 Sodium Chloride (NS Flush) 2 ml UNSCH PRN IV FLUSH FLUSH AFTER USING IV ACCESS ; Start 05/23/17 at 09:00 Vancomycin HCl 1500 mg/Sodium Chloride 515 ml @ 257.5 mls/ hr Q24H IV Last administered on 05/24/17 23:43; Start 05/23/17 at 00:00 Vancomycin HCl 1750 mg/Sodium Chloride 517.5 ml @ 250 mls/hr ONCE ONCE IV Last administered on 05/22/17 00:07; Start 05/22/17 at 00:00; Stop 05/22/17 at 02:04; Status DC Assessment and Plan Problem List: (1) CHF (congestive heart failure) ICD Codes: I50.9 - Heart failure, unspecified Plan: cardiology to consult and diurese (2) COPD (chronic obstructive pulmonary disease) ICD Codes: J44.9 - Chronic obstructive pulmonary disease, unspecified Plan: macey colunga (3) Coronary artery disease ICD Codes: I25.10 - Atherosclerotic heart disease of [place] coronary artery without angina pectoris Plan: ultimately needs bypass surgery (4) Wound infection ICD Codes: T14.8XXA - Other injury of unspecified body region, initial encounter; L08.9 - Local infection of the skin and subcutaneous tissue, unspecified Plan: wound care consult Assessment and Plan CHF COPD CAD MRSA WOUND Discussed Condition With patient anticipate CABG next week Problem Qualifiers (1) CHF (congestive heart failure): Qualified Codes: I50.9 - Heart failure, unspecified (2) COPD (chronic obstructive pulmonary disease): Qualified Codes: J44.1 - Chronic obstructive pulmonary disease with (acute) exacerbation Frederic Vincent DO May 25, 2017 13:18
--- NOTE | 2017-05-25 15:55 | PD.CARD.PN ---
Subjective Subjective Remarks PT STABLE CABG SCHEDULED FOR NEXT WEEK NO CP SOB ULCER HEALING L FOOT LCTA RRR NO S3 RUB NO EDEMA SAME RX CV LUU Objective Medications Current Medications Medications (Trade) Dose Ordered Sig/Tatyana Route Start Time Stop Time Status Last Admin (Heparin Inj) 5,000 units UNSCH PRN IV PUSH 05/21/17 21:45 (Heparin Inj) 2,500 units UNSCH PRN IV PUSH 05/21/17 21:45 05/25/17 05:15 Heparin Sodium/ Dextrose 250 ml @ 10 mls/hr TITRATE PRN IV 05/21/17 15:45 05/24/17 18:52 (KCl) 10 meq BID PO 05/21/17 21:00 05/25/17 08:22 (Glucagon Inj) 1 mg UNSCH PRN OTHER 05/21/17 16:15 (NovoLOG SUPPLEMENTAL SCALE) 1 ACHS SLIDING SCALE SQ 05/21/17 17:00 05/25/17 12:00 (Ecotrin Ec) 81 mg DAILY PO 05/22/17 09:00 05/25/17 08:22 (Lipitor) 40 mg DAILY PO 05/22/17 09:00 05/25/17 08:22 (NovoLIN 70/30 INJ) 15 units BID SQ 05/21/17 21:00 05/25/17 08:23 (Duoneb Neb) 1 ampule Q2HR NEB PRN NEB 05/21/17 16:15 05/24/17 11:41 (Lasix Inj) 40 mg BID@09,18 IV PUSH 05/22/17 09:00 05/25/17 08:23 Pharmacy Profile Note 0 ml @ 0 mls/hr UNSCH OTHER 05/22/17 11:45 Vancomycin HCl 1500 mg/Sodium Chloride 515 ml @ 257.5 mls/ hr Q24H IV 05/23/17 00:00 05/24/17 23:43 Miscellaneous Information SPECIFIC LAB TO BE DRAWN:VANCOMYCIN DATE TO BE DRToo.. ONCE ONCE .XX 05/25/17 23:45 05/25/17 23:46 Diltiazem HCl 125 mg/Sodium Chloride 125 ml @ 5 mls/hr TITRATE PRN IV 05/22/17 18:30 05/24/17 09:26 (Dakin'S 0.125% Soln) 50 ml DAILY TOPICAL 05/22/17 20:32 05/25/17 08:25 (Santyl Oint) 1 applic DAILY TOPICAL 05/22/17 20:34 05/25/17 08:25 (NS Flush) 2 ml BID IV FLUSH 05/23/17 09:00 05/25/17 08:23 (NS Flush) 2 ml UNSCH PRN IV FLUSH 05/23/17 09:00 Papaverine HCl 60 mg/Nitroglycerin 100 mcg/Diltiazem HCl 100 mg/Sodium Chloride 100 ml @ 0 mls/hr LINESPERSON IRRIGATION 05/23/17 09:00 05/30/17 08:59 Cefazolin Sodium 500 mg/Sodium Chloride 505 ml @ 0 mls/hr LINESPERSON IRRIGATION 05/23/17 09:00 05/30/17 08:59 Cefazolin Sodium/ Dextrose 50 ml @ 150 mls/hr LINESPERSON IV 05/23/17 09:00 05/30/17 08:59 (Lopressor) 12.5 mg LINESPERSON PO 05/23/17 09:00 05/30/17 08:59 (Hibiclens 4% Top Soln) 1 applic LINESPERSON TOPICAL 05/23/17 09:00 05/30/17 08:59 Insulin Human Regular 100 units/ Sodium Chloride 100 ml @ 3 mls/hr TITRATE PRN IV 05/23/17 09:00 05/30/17 08:59 (D50w (Vial) Inj) 50 ml UNSCH PRN IV PUSH 05/23/17 09:00 ([facility]) @ 700--HOLD CARDIZEM ... TITRATE PRN OTHER 05/23/17 17:15 (SoluMEDROL INJ) 40 mg Q12HR IV PUSH 05/24/17 21:00 05/25/17 08:23 (Lopressor) 50 mg Q12HR PO 05/24/17 21:00 05/25/17 08:22 (Atrovent Neb) 0.5 mg Q6HR WHILE AWAKE NEB NEB 05/24/17 14:00 05/25/17 14:00 Vital Signs / I&O Vital Signs Date Time Temp Pulse Resp B/P (MAP) Pulse Ox O2 Delivery O2 Flow Rate FiO2 05/25/17 15:00 66 05/25/17 15:00 98.2 69 18 145/74 (97) 97 05/25/17 14:03 65 05/25/17 13:30 71 05/25/17 12:02 67 05/25/17 11:56 98.2 64 18 154/95 (114) 95 05/25/17 11:56 64 05/25/17 10:01 63 05/25/17 09:20 70 05/25/17 08:24 93 Nasal Cannula 2.00 05/25/17 08:15 98.0 74 20 154/89 (110) 94 05/25/17 08:15 94 Nasal Cannula 2.00 05/25/17 08:15 67 05/25/17 06:00 66 05/25/17 05:00 68 05/25/17 04:00 66 05/25/17 03:39 86 16 148/78 (101) 94 05/25/17 03:00 64 05/25/17 02:00 64 05/25/17 01:00 62 05/25/17 00:00 62 05/24/17 23:40 65 18 146/79 (101) 95 05/24/17 23:00 63 05/24/17 22:00 76 05/24/17 21:00 78 05/24/17 20:00 74 05/24/17 19:55 97.0 94 16 139/73 (95) 97 05/24/17 19:55 97 Nasal Cannula 2.00 05/24/17 19:46 96 Nasal Cannula 2.00 05/24/17 19:00 73 I/O 05/24/17 05/24/17 05/24/17 05/25/17 05/25/17 05/25/17 07:00 15:00 23:00 07:00 15:00 23:00 Intake Total 740 ml 23 ml 1200 ml 610 ml Output Total 1110 ml 2000 ml 800 ml Balance -370 ml 23 ml -800 ml -190 ml Intake Oral 240 ml 1200 ml 480 ml IV Total 500 ml 23 ml 130 ml Output Urine Total 1110 ml 2000 ml 800 ml # Voids 3 # Bowel Movements 0 0 1 Laboratory Laboratory Tests Test 05/25/17 04:39 05/25/17 10:15 05/25/17 11:18 Activated Partial Thromboplast Time 38.9 SEC 57.3 SEC Creatinine 1.04 MG/DL Estimat Glomerular Filtration Rate 71 ML/MIN Nasal Screen MRSA (PCR) MRSA NOT DETECTED Assessment and Plan Problem List: (1) Coronary artery disease ICD Codes: I25.10 - Atherosclerotic heart disease of [place] coronary artery without angina pectoris (2) COPD (chronic obstructive pulmonary disease) ICD Codes: J44.9 - Chronic obstructive pulmonary disease, unspecified (3) CHF (congestive heart failure) ICD Codes: I50.9 - Heart failure, unspecified (4) Afib ICD Codes: I48.91 - Unspecified atrial fibrillation Problem Qualifiers (1) COPD (chronic obstructive pulmonary disease): Qualified Codes: J44.1 - Chronic obstructive pulmonary disease with (acute) exacerbation (2) CHF (congestive heart failure): Qualified Codes: I50.9 - Heart failure, unspecified Jasen Hill DO May 25, 2017 15:55
[2017-05-25 18:37] LABS: AMORPHOUS SEDIMENT, URINE OCC; BACTERIA, URINE RARE /hpf; BILIRUBIN, URINE NEG (NEG); BLOOD, URINE TRACE (NEG); GLUCOSE,URINE NEG (NEG); KETONE, URINE NEG (NEG); MUCUS URINE FEW /lpf (OCC); NITRITE,URINE NEG (NEG); URINE COLOR LIGHT-YELLOW (YELLW/STRAW); URINE LEUKOCYTE ESTERASE NEG (NEG)
[2017-05-25] MEDS ORDERED: PHARMACY ORDERED LAB ONE (23:45)
[2017-05-25] MEDS: VANCOMYCIN 1,500 MG/NS 500 ML IV SCH ×2 (23:47)
[2017-05-26] VITALS (22 sets, daily range): BP systolic 138–143; BP diastolic 69–76; PULSE 50–68; RESP 16–18; TEMP 97.4–98; O2SAT 96–99
[2017-05-26] MEDS: HEPARIN-D5W 25,000 U/250 ML 250 ML IV PRN ×2 (00:53→16:47)
[2017-05-26] MEDS: INSULIN ASPART SUPPLEMENTAL SCALE SQ SCH ×4 (08:00→22:06)
[2017-05-26] MEDS: ATORVASTATIN 40 MG TAB PO SCH (08:06)
[2017-05-26] MEDS: POTASSIUM CHLORIDE 10 MEQ CONTROLLED RELEASE TAB PO SCH ×2 (08:07→21:36)
[2017-05-26] MEDS: methylPREDNISolone SOD SUCC 40 MG/1 ML VIAL IV PUSH SCH ×2 (08:07→21:37)
[2017-05-26] MEDS: FUROSEMIDE 40 MG/4 ML VIAL IV PUSH SCH ×2 (08:07→16:44)
[2017-05-26] MEDS: ASPIRIN EC 81 MG TABEC PO SCH (08:07)
[2017-05-26] MEDS: METOPROLOL TARTRATE 50 MG TAB PO SCH ×2 (08:07→21:36)
[2017-05-26] MEDS: SODIUM CHLORIDE 0.9% FLUSH 10 ML FLUSH IV FLUSH SCH ×2 (08:08→21:37)
[2017-05-26] MEDS: INSULIN HUMAN NPH/R 70/30 1,000 UNITS/10 ML VIAL SQ SCH ×2 (08:08→21:00)
[2017-05-26] MEDS: COLLAGENASE OINT 30 GM TUBE TOPICAL SCH (08:09)
[2017-05-26] MEDS: SODIUM HYPOCHLORITE 0.125% 500 ML BTL TOPICAL SCH (08:09)
[2017-05-26] MEDS: RESP: IPRATROPIUM 0.5 MG/2.5 ML NEB NEB SCH ×3 (08:58→20:20)
[2017-05-27] VITALS (12 sets, daily range): BP systolic 129–148; BP diastolic 68–74; PULSE 53–61; RESP 14–18; TEMP 97.5–98.7; O2SAT 94–98
[2017-05-27] MEDS: VANCOMYCIN INJ 1,250 MG in SODIUM CHLOR 0.9% 250 ML INJ 250 ML IV SCH ×2
[2017-05-27 05:49] LABS: AUTOMATED NEUTROPHIL # 8.6 TH/MM3 (1.8-7.7); EOSINOPHIL # 0.1 TH/MM3 (0-0.4); EOSINOPHIL % 1.2 % (0.0-4.0); HEMATOCRIT 36.7 % (39.0-51.0); HEMOGLOBIN 12.4 GM/DL (13.0-17.0); LYMPH % 13.1 % (9.0-44.0); LYMPHOCYTE # 1.4 TH/MM3 (1.0-4.8); MEAN CORPUSCULAR HEMOGLOBIN 27.9 PG (27.0-34.0); MEAN CORPUSCULAR HGB CONC 33.6 % (32.0-36.0); MEAN PLATELET VOLUME 9.9 FL (7.0-11.0); MONO % 7.4 % (0.0-8.0); MONOCYTE # 0.8 TH/MM3 (0-0.9); NEUT % 78.3 % (16.0-70.0); PLATELET COUNT 240 TH/MM3 (150-450); RED BLOOD COUNT 4.43 MIL/MM3 (4.50-5.90); RED CELL DISTRIBUTION WIDTH 14.8 % (11.6-17.2); WHITE BLOOD COUNT 10.9 TH/MM3 (4.0-11.0)
[2017-05-27 06:00] LABS: INTERNATIONAL NORMALIZED RATIO 1.2 RATIO; PROTHROMBIN TIME - PATIENT 12.1 SEC (9.8-11.6)
[2017-05-27 06:14] LABS: ALBUMIN 2.1 GM/DL (3.4-5.0); AST (GOT) 20 U/L (15-37); BICARBONATE 34.7 MEQ/L (21.0-32.0); BLOOD UREA NITROGEN 41 MG/DL (7-18); CALCIUM 8.3 MG/DL (8.5-10.1); CHLORIDE 101 MEQ/L (98-107); CREATININE 0.91 MG/DL (0.60-1.30); GLOMERULAR FILTRATION RATE 83 ML/MIN (>89); GLUCOSE,RANDOM 101 MG/DL (74-106); SODIUM (NA) 140 MEQ/L (136-145)
[2017-05-27 06:15] LABS: ALT (GPT) 36 U/L (12-78)
[2017-05-27 06:17] LABS: ALKALINE PHOSPHATASE 90 U/L (45-117); TOTAL BILIRUBIN ADULT 0.3 MG/DL (0.2-1.0); TOTAL PROTEIN 5.7 GM/DL (6.4-8.2)
--- NOTE | 2017-05-27 07:44 | RADRPT ---
EXAM DATE/TIME: 05/27/2017 07:16 [facility] COMPARISON: No previous studies available for comparison. INDICATIONS : Evaluate for pneumonia, pneumothorax or communicable disease. Pre op cabg. MEDICAL HISTORY : Chronic obstructive pulmonary disease. Hypertension Cardiovascular disease. SURGICAL HISTORY : None. ENCOUNTER: Subsequent ACUITY: 3 weeks PAIN SCORE: 0/10 LOCATION: Bilateral chest FINDINGS: There is a PICC line placed from the right arm the tip overlying the SVC. The heart size is [place] its of normal for size. There are mild bilateral pleural effusions being worse on the left. There is mild increased density at the bases. CONCLUSION: Mild bilateral pleural effusions and accompanying areas of mild atelectasis or consolidation at the b ases. Chito King MD on May 27, 2017 at 7:40 Board Certified Radiologist. This report was verified electronically.
[2017-05-27] MEDS: RESP: IPRATROPIUM 0.5 MG/2.5 ML NEB NEB SCH ×2 (07:53→19:47)
[2017-05-27] MEDS: INSULIN ASPART SUPPLEMENTAL SCALE SQ SCH ×4 (08:00→21:00)
[2017-05-27] MEDS: POTASSIUM CHLORIDE 10 MEQ CONTROLLED RELEASE TAB PO SCH ×2 (08:15→21:11)
[2017-05-27] MEDS: FUROSEMIDE 40 MG/4 ML VIAL IV PUSH SCH (08:15)
[2017-05-27] MEDS: methylPREDNISolone SOD SUCC 40 MG/1 ML VIAL IV PUSH SCH ×2 (08:15→21:12)
[2017-05-27] MEDS: ATORVASTATIN 40 MG TAB PO SCH (08:16)
[2017-05-27] MEDS: METOPROLOL TARTRATE 50 MG TAB PO SCH ×2 (08:16→21:00)
[2017-05-27] MEDS: ASPIRIN EC 81 MG TABEC PO SCH (08:16)
[2017-05-27] MEDS: COLLAGENASE OINT 30 GM TUBE TOPICAL SCH (08:20)
[2017-05-27] MEDS: SODIUM CHLORIDE 0.9% FLUSH 10 ML FLUSH IV FLUSH SCH ×2 (08:20→21:00)
[2017-05-27] MEDS: SODIUM HYPOCHLORITE 0.125% 500 ML BTL TOPICAL SCH (08:20)
[2017-05-27] MEDS: INSULIN HUMAN NPH/R 70/30 1,000 UNITS/10 ML VIAL SQ SCH ×2 (08:21→21:00)
--- NOTE | 2017-05-27 08:48 | PD.CAR.PN ---
CVT Progress Note Subjective/Hospital Course: 71/ male / known to our service that initially presented with complaint of worsening infection in his left ankle that he has had off and on for the last 3 weeks. He had a open wound on the outside aspect of the ankle. He has longstanding history of diabetes on insulin. He was also been complaining of some increased weakness and fatigue for the past 6 months. He said he had normally ambulated unassisted, was having more difficulty getting around due to the weakness and discomfort. Incidentally on ED admission 05/04 , his EKG some ST elevation in lead II only, however, he did have some T-wave depression in the lateral leads, some poor R-wave progression, no prior EKG to compare. He then had a troponin elevated at 1.26. He was ruled in for non-STEMI. He was taken then to the collaborating supervising physician by Dr. Melchor showed the LAD approximately 20% stenosis, moderate sized diagonal branches, 40% proximal stenosis, the LAD beyond the takeoff of the diagonal was 90% stenosed, the second diagonal branch had some luminal irregularities, the LAD distal had 80% lesion, left circ had a 99% subtotal occlusion and the right coronary artery had heavily calcified subtotal occlusion, ejection fraction approximately 35%. S/p left external iliac FACING BASTER JUMPBASTING (good common femoral artery pulse) and s/p atherectomy/FACING BASTER JUMPBASTING left posterior tibial artery. anterior tibial artery occluded. Doppler PT and AT. No vascular surgical options given poor runoff with small vessels (all distal disease). . We were consulted at his last admission to evaluate for coronary artery bypass grafting. Pt was followed closely , but was very deconditioned and was still being treated for left ankle wound infection. It was felt at that time, that the pt needed to be discharged to SNF, for aggressive PT/ OT and had a outpt f/u with Dr Alfaro in 2-3 after discharge to re-eval for surgery . He was discharged to SNF 05/17 PAST MEDICAL HISTORY: Hypertension, Uncontrolled diabetes mellitus, COPD with ongoing tobacco use , severe PAD , Excision of melanoma from the face, chronic wound on his left ankle for about 3 weeks. 05/22 pt was re-admitted to ED , worsening shortness of breath and non-productive cough , CXR showed pulm edema , BNP 1200 Trop 1.26, NSTEMI , pt has been seen and eval by Dr Wright and Dr Alfaro agree with aggressive diuresis, and will eval for surgery early next week , he still has a left ankle wound that needs wound care management , and continued ABX , last PFT showed FEV1 1.10 05/23 pt went into afib RVR last pm, now on cardizem gtt, continues on Heparin gtt on room air breath sounds improved, still few crackles in the bases scheduled for surgery on SatMay 2805/24 pt converted to NSR last evening, then received albuterol nebs, went back into afib back on cardizem drip, BB increased check mag and phos scheduled for surgery n Saturday05/27/17 Patient improved from pulmonary standpoint. On IV vanc until 06/17/17 for osteo in leg. No complaints this morning. Objective: Vital Signs Date Time Temp Pulse Resp B/P (MAP) Pulse Ox O2 Delivery O2 Flow Rate FiO2 05/27/17 05:00 97.6 55 16 137/69 (91) 98 05/26/17 21:43 97.7 58 16 142/73 (96) 97 05/26/17 20:23 96 Nasal Cannula 3.00 05/26/17 19:41 97 Nasal Cannula 2.00 05/26/17 18:00 60 05/26/17 17:00 68 05/26/17 16:09 64 05/26/17 15:00 98 Nasal Cannula 2.00 05/26/17 15:00 98.0 60 18 138/72 (94) 98 05/26/17 15:00 59 05/26/17 14:03 55 05/26/17 13:38 55 05/26/17 12:01 54 05/26/17 11:16 52 05/26/17 11:16 98 Nasal Cannula 2.00 05/26/17 11:16 97.7 53 18 141/69 (93) 98 05/26/17 10:04 51 05/26/17 09:07 50 05/26/17 09:01 96 Nasal Cannula 4.00 Labs: Laboratory Tests Test 05/27/17 05:15 White Blood Count 10.9 TH/MM3 (4.0-11.0) Red Blood Count 4.43 MIL/MM3 (4.50-5.90) Hemoglobin 12.4 GM/DL (13.0-17.0) Hematocrit 36.7 % (39.0-51.0) Mean Corpuscular Volume 83.0 FL (80.0-100.0) Mean Corpuscular Hemoglobin 27.9 PG (27.0-34.0) Mean Corpuscular Hemoglobin Concent 33.6 % (32.0-36.0) Red Cell Distribution Width 14.8 % (11.6-17.2) Platelet Count 240 TH/MM3 (150-450) Mean Platelet Volume 9.9 FL (7.0-11.0) Neutrophils (%) (Auto) 78.3 % (16.0-70.0) Lymphocytes (%) (Auto) 13.1 % (9.0-44.0) Monocytes (%) (Auto) 7.4 % (0.0-8.0) Eosinophils (%) (Auto) 1.2 % (0.0-4.0) Basophils (%) (Auto) 0.0 % (0.0-2.0) Neutrophils # (Auto) 8.6 TH/MM3 (1.8-7.7) Lymphocytes # (Auto) 1.4 TH/MM3 (1.0-4.8) Monocytes # (Auto) 0.8 TH/MM3 (0-0.9) Eosinophils # (Auto) 0.1 TH/MM3 (0-0.4) Basophils # (Auto) 0.0 TH/MM3 (0-0.2) CBC Comment DIFF FINAL Differential Comment Prothrombin Time 12.1 SEC (9.8-11.6) Prothromb Time International Ratio 1.2 RATIO Activated Partial Thromboplast Time 50.4 SEC (24.3-30.1) Blood Urea Nitrogen 41 MG/DL (7-18) Creatinine 0.91 MG/DL (0.60-1.30) Random Glucose 101 MG/DL (74-106) Total Protein 5.7 GM/DL (6.4-8.2) Albumin 2.1 GM/DL (3.4-5.0) Calcium Level 8.3 MG/DL (8.5-10.1) Alkaline Phosphatase 90 U/L (45-117) Aspartate Amino Transf (AST/SGOT) 20 U/L (15-37) Alanine Aminotransferase (ALT/SGPT) 36 U/L (12-78) Total Bilirubin 0.3 MG/DL (0.2-1.0) Sodium Level 140 MEQ/L (136-145) Potassium Level 3.8 MEQ/L (3.5-5.1) Chloride Level 101 MEQ/L (98-107) Carbon Dioxide Level 34.7 MEQ/L (21.0-32.0) Anion Gap 4 MEQ/L (5-15) Estimat Glomerular Filtration Rate 83 ML/MIN (>89) Result Diagram: 05/27/17 0515 05/27/17 0515 Imaging: Last Impressions Chest X-Ray 05/27/17 0000 Signed Impressions: Service Date/Time: Saturday, May 27, 2017 07:16 - CONCLUSION: Mild bilateral pleural effusions and accompanying areas of mild atelectasis or consolidation at the bases. Chito King MD Cardiovascular: RRR Telemetry: NSR currently Pulmonary: few exp wheezes GI/: NABS, NT Plan: I reviewed his recent clinical progress s/p NSTEMI with EF = 25%. Risk of CABG is very high secondary to COPD with FEV1 = 0.8 liters, diabetes, steroids ( immunocompromised), PAD, ongoing infection. I discussed the risks and benefits of CABG with him this morning and he agrees to proceed. His distal targets appear fair to poor on LHC, but should be able to graft LAD, Diag, PDA with possibility of a second diag or OM. He also understands he may require prolonged ventilator support. Risk Model and Variables - STS Adult Cardiac Surgery Database Version 2.81 RISK SCORES About the STS Risk Calculator Procedure: CAB Only Risk of Mortality: 13.307% Morbidity or Mortality: 49.697% Long Length of Stay: 37.187% Short Length of Stay: 7.163% Permanent Stroke: 3.993% Prolonged Ventilation: 38.698% DSW Infection: 2.231% Renal Failure: 14.038% Reoperation: 18.218% (1) Coronary artery disease Plan: on ASA, statin , BB heparin gtt for surgery on May 28 (2) COPD (chronic obstructive pulmonary disease) Plan: on nebs dc albuterol / afib after neb treatment (3) CHF (congestive heart failure) Plan: on diuretics (4) Afib Plan: on cardizem and heparin, BB Problem Qualifiers (1) COPD (chronic obstructive pulmonary disease): Qualified Codes: J44.1 - Chronic obstructive pulmonary disease with (acute) exacerbation (2) CHF (congestive heart failure): Qualified Codes: I50.9 - Heart failure, unspecified Flavia Alfaro MD May 27, 2017 08:48
[2017-05-27] MEDS ORDERED: FUROSEMIDE 40 MG/4 ML VIAL IV PUSH SCH (09:00)
[2017-05-27] MEDS: HEPARIN-D5W 25,000 U/250 ML 250 ML IV PRN (11:28)
--- NOTE | 2017-05-27 13:10 | HHI.PR ---
Subjective Remarks In bed no chest pain overnight. No sob on 2L NC. Denies palpitations,. diaphoresis, n/v/d/c. Plan for CABG tomorrow Objective Vitals Vital Signs Date Time Temp Pulse Resp B/P (MAP) Pulse Ox O2 Delivery O2 Flow Rate FiO2 05/27/17 11:00 95 Nasal Cannula 3.00 05/27/17 11:00 53 05/27/17 11:00 97.7 53 18 129/74 (92) 95 05/27/17 10:00 53 05/27/17 09:04 53 05/27/17 08:00 97 Nasal Cannula 3.00 05/27/17 08:00 97.6 58 18 140/68 (92) 97 05/27/17 08:00 54 05/27/17 05:00 97.6 55 16 137/69 (91) 98 05/26/17 21:43 97.7 58 16 142/73 (96) 97 05/26/17 20:23 96 Nasal Cannula 3.00 05/26/17 19:41 97 Nasal Cannula 2.00 05/26/17 18:00 60 05/26/17 17:00 68 05/26/17 16:09 64 05/26/17 15:00 98 Nasal Cannula 2.00 05/26/17 15:00 98.0 60 18 138/72 (94) 98 05/26/17 15:00 59 05/26/17 14:03 55 05/26/17 13:38 55 I/O 05/26/17 05/26/17 05/26/17 05/27/17 05/27/17 05/27/17 07:00 15:00 23:00 07:00 15:00 23:00 Intake Total 1171 ml 870 ml Output Total 1400 ml 2850 ml 900 ml Balance -229 ml -1980 ml -900 ml Intake Oral 480 ml 720 ml IV Total 691 ml 150 ml Output Urine Total 1400 ml 2850 ml 900 ml # Bowel Movements 0 0 Result Diagram: 05/27/17 0515 05/27/17 0515 Imaging Last Impressions Chest X-Ray 05/27/17 0000 Signed Impressions: Service Date/Time: Saturday, May 27, 2017 07:16 - CONCLUSION: Mild bilateral pleural effusions and accompanying areas of mild atelectasis or consolidation at the bases. Chito King MD Objective Remarks GENERAL: Well-nourished, well-developed patient. CARDIOVASCULAR: Regular rate and rhythm without murmurs, gallops, or rubs. RESPIRATORY: Breath sounds equal bilaterally. No accessory muscle use.sounds decreased in bases GASTROINTESTINAL: Abdomen soft, non-tender, nondistended. EXTREMITIES: No cyanosis, or edema. open wound ankle NEUROLOGICAL: Awake, alert, and oriented x 3. Non-focal. A/P Assessment and Plan (1) CHF (congestive heart failure) ICD Codes: I50.9 - Heart failure, unspecified Plan: cardiology to consult and diurese (2) COPD (chronic obstructive pulmonary disease) ICD Codes: J44.9 - Chronic obstructive pulmonary disease, unspecified Plan: duo nebs (3) Coronary artery disease ICD Codes: I25.10 - Atherosclerotic heart disease of [place] coronary artery without angina pectoris Plan: Plan for CABG 05/28/16 (4) Wound infection ICD Codes: T14.8XXA - Other injury of unspecified body region, initial encounter; L08.9 - Local infection of the skin and subcutaneous tissue, unspecified Plan: wound care consult Assessment and Plan CHF COPD CAD MRSA WOUND Discussed Condition With patient , ICU nurse Plan for CABG tomorrow Melissa Grewal MD May 27, 2017 13:10
[2017-05-28] VITALS (14 sets, daily range): BP systolic 141–158; BP diastolic 71–81; PULSE 53–65; RESP 14–18; TEMP 97.6–98.5; O2SAT 94–99
[2017-05-28] MEDS: VANCOMYCIN INJ 1,250 MG in SODIUM CHLOR 0.9% 250 ML INJ 250 ML IV SCH ×2 (00:13→23:10)
[2017-05-28] MEDS ORDERED: methylPREDNISolone SOD SUCC 125 MG/2 ML VIAL ONE (06:14)
[2017-05-28] MEDS ORDERED: VANCOMYCIN HCL 1000 MG VIAL ONE (06:15)
[2017-05-28] MEDS ORDERED: ceFAZolin 2 GM PREMIX 0 ML ONE (06:15)
[2017-05-28] MEDS ORDERED: HEPARIN SODIUM - SQ 10,000 UNITS/ML VIAL ONE (06:15)
[2017-05-28] MEDS: INSULIN ASPART SUPPLEMENTAL SCALE SQ SCH ×4 (08:00→21:10)
[2017-05-28] MEDS: RESP: IPRATROPIUM 0.5 MG/2.5 ML NEB NEB SCH ×3 (08:00→19:43)
--- NOTE | 2017-05-28 08:28 | PD.CAR.PN ---
CVT Progress Note Subjective/Hospital Course: 71/ male / known to our service that initially presented with complaint of worsening infection in his left ankle that he has had off and on for the last 3 weeks. He had a open wound on the outside aspect of the ankle. He has longstanding history of diabetes on insulin. He was also been complaining of some increased weakness and fatigue for the past 6 months. He said he had normally ambulated unassisted, was having more difficulty getting around due to the weakness and discomfort. Incidentally on ED admission 05/04 , his EKG some ST elevation in lead II only, however, he did have some T-wave depression in the lateral leads, some poor R-wave progression, no prior EKG to compare. He then had a troponin elevated at 1.26. He was ruled in for non-STEMI. He was taken then to the cardiac cath lab technologist by Dr. Melchor showed the LAD approximately 20% stenosis, moderate sized diagonal branches, 40% proximal stenosis, the LAD beyond the takeoff of the diagonal was 90% stenosed, the second diagonal branch had some luminal irregularities, the LAD distal had 80% lesion, left circ had a 99% subtotal occlusion and the right coronary artery had heavily calcified subtotal occlusion, ejection fraction approximately 35%. S/p left external iliac NEW CAR SALESPERSON (good common femoral artery pulse) and s/p atherectomy/NEW CAR SALESPERSON left posterior tibial artery. anterior tibial artery occluded. Doppler PT and AT. No vascular surgical options given poor runoff with small vessels (all distal disease). . We were consulted at his last admission to evaluate for coronary artery bypass grafting. Pt was followed closely , but was very deconditioned and was still being treated for left ankle wound infection. It was felt at that time, that the pt needed to be discharged to SNF, for aggressive PT/ OT and had a outpt f/u with Dr Alfaro in 2-3 after discharge to re-eval for surgery . He was discharged to SNF 05/17 PAST MEDICAL HISTORY: Hypertension, Uncontrolled diabetes mellitus, COPD with ongoing tobacco use , severe PAD , Excision of melanoma from the face, chronic wound on his left ankle for about 3 weeks. 05/22 pt was re-admitted to ED , worsening shortness of breath and non-productive cough , CXR showed pulm edema , BNP 1200 Trop 1.26, NSTEMI , pt has been seen and eval by Dr Wright and Dr Alfaro agree with aggressive diuresis, and will eval for surgery early next week , he still has a left ankle wound that needs wound care management , and continued ABX , last PFT showed FEV1 1.10 05/23 pt went into afib RVR last pm, now on cardizem gtt, continues on Heparin gtt on room air breath sounds improved, still few crackles in the bases scheduled for surgery on SatMay 2805/24 pt converted to NSR last evening, then received albuterol nebs, went back into afib back on cardizem drip, BB increased check mag and phos scheduled for surgery n Saturday05/27/17 Patient improved from pulmonary standpoint. On IV vanc until 06/17/17 for osteo in leg. No complaints this morning. 05/28/17 CABG cancelled secondary to fall this morning. Given his comorbidities and unsteady gait, will ask for a second opinion from my colleagues at [facility]. Objective: Vital Signs Date Time Temp Pulse Resp B/P (MAP) Pulse Ox O2 Delivery O2 Flow Rate FiO2 05/28/17 07:55 94 Nasal Cannula 3.00 05/28/17 05:00 54 05/28/17 04:00 54 05/28/17 03:00 97.6 56 14 142/76 (98) 98 05/28/17 03:00 56 05/28/17 03:00 98 Nasal Cannula 4.00 05/28/17 02:00 53 05/28/17 01:00 53 05/28/17 00:00 58 05/27/17 23:00 54 05/27/17 23:00 97.5 54 14 148/73 (98) 96 05/27/17 23:00 96 Nasal Cannula 3.00 05/27/17 22:00 54 05/27/17 21:00 57 05/27/17 20:00 61 05/27/17 19:32 94 3.00 05/27/17 19:00 97 Nasal Cannula 3.00 05/27/17 19:00 60 05/27/17 19:00 98.3 60 14 137/71 (93) 97 05/27/17 15:00 56 05/27/17 15:00 98.7 56 18 136/72 (93) 97 05/27/17 15:00 97 Nasal Cannula 3.00 05/27/17 11:00 95 Nasal Cannula 3.00 05/27/17 11:00 53 05/27/17 11:00 97.7 53 18 129/74 (92) 95 05/27/17 10:00 53 05/27/17 09:04 53 Labs: Laboratory Tests Test 05/28/17 03:47 Activated Partial Thromboplast Time 45.7 SEC (24.3-30.1) Result Diagram: 05/27/17 0515 05/27/17 0515 Imaging: Last Impressions Chest X-Ray 05/27/17 0000 Signed Impressions: Service Date/Time: Saturday, May 27, 2017 07:16 - CONCLUSION: Mild bilateral pleural effusions and accompanying areas of mild atelectasis or consolidation at the bases. Chito King MD Cardiovascular: RRR Telemetry: NSR Pulmonary: Few crackles bilat GI/: NABS, NT Plan: CABG cancelled Patient discussed with Dr. Lopez at [facility] and records/films will be sent. (1) Coronary artery disease Plan: on ASA, statin , BB heparin gtt for surgery on May 28 (2) COPD (chronic obstructive pulmonary disease) Plan: on nebs dc albuterol 06/28 afib after neb treatment (3) CHF (congestive heart failure) Plan: on diuretics (4) Afib Plan: on cardizem and heparin, BB Problem Qualifiers (1) COPD (chronic obstructive pulmonary disease): Qualified Codes: J44.1 - Chronic obstructive pulmonary disease with (acute) exacerbation (2) CHF (congestive heart failure): Qualified Codes: I50.9 - Heart failure, unspecified Flavia Alfaro MD May 28, 2017 08:28
[2017-05-28] MEDS: methylPREDNISolone SOD SUCC 40 MG/1 ML VIAL IV PUSH SCH ×2 (08:54→21:09)
[2017-05-28] MEDS: SODIUM CHLORIDE 0.9% FLUSH 10 ML FLUSH IV FLUSH SCH ×2 (08:54→21:09)
[2017-05-28] MEDS: ATORVASTATIN 40 MG TAB PO SCH (08:55)
[2017-05-28] MEDS: METOPROLOL TARTRATE 50 MG TAB PO SCH ×2 (08:55→21:09)
[2017-05-28] MEDS: POTASSIUM CHLORIDE 10 MEQ CONTROLLED RELEASE TAB PO SCH ×2 (08:55→21:09)
[2017-05-28] MEDS: ASPIRIN EC 81 MG TABEC PO SCH (08:55)
[2017-05-28] MEDS: SODIUM HYPOCHLORITE 0.125% 500 ML BTL TOPICAL SCH (08:56)
[2017-05-28] MEDS: COLLAGENASE OINT 30 GM TUBE TOPICAL SCH (08:56)
[2017-05-28] MEDS: INSULIN HUMAN NPH/R 70/30 1,000 UNITS/10 ML VIAL SQ SCH ×2 (08:56→21:00)
[2017-05-28] MEDS ORDERED: ATROPINE SULFATE 1 MG/10 ML SYRINGE ONE (12:26)
[2017-05-28] MEDS ORDERED: EPINEPHrine HCL (1:10,000) 1 MG/10 ML SYRINGE ONE (12:26)
--- NOTE | 2017-05-28 13:08 | RADRPT ---
EXAM DATE/TIME: 05/28/2017 12:37 [facility] COMPARISON: CT THORAX W/O CONTRAST, May 15, 2017, 14:28. INDICATIONS : Trauma, fall today. RADIATION DOSE: 56.35 CTDIvol (mGy) MEDICAL HISTORY : Cardiovascular disease. Chronic obstructive pulmonary disease. skin cancer, diabetes SURGICAL HISTORY : None. ENCOUNTER: Initial ACUITY: 1 day PAIN SCALE: 0/10 LOCATION: Bilateral head TECHNIQUE: Multiple contiguous axial images were obtained of the head. Using automated exposure control and adj ustment of the mA and/or kV according to patient size, radiation dose was kept as low as reasonably a chievable to obtain optimal diagnostic quality images. DICOM format image data is available electro nically for review and comparison. FINDINGS: CEREBRUM: The ventricles are normal for age. No evidence of midline shift, mass lesion, hemorrhage or acute in farction. No extra-axial fluid collections are seen. POSTERIOR FOSSA: The cerebellum and brainstem are intact. The 4th ventricle is midline. The cerebellopontine angle i s unremarkable. EXTRACRANIAL: The visualized portion of the orbits is intact. SKULL: The calvaria is intact. No evidence of skull fracture. CONCLUSION: 1. No acute intracranial abnormality identified. 2. Soft tissue laceration of the scalp. Huseyin Muñoz MD on May 28, 2017 at 13:04 Board Certified Radiologist. This report was verified electronically.
[2017-05-28] MEDS: HEPARIN-D5W 25,000 U/250 ML 250 ML IV PRN (17:27)
[2017-05-29 03:07] VITALS: BP 147/74; PULSE 56; PULSE 57; RESP 15; TEMP 98; O2SAT 98
[2017-05-29 04:41] LABS: CREATININE 0.84 MG/DL (0.60-1.30)
[2017-05-29 07:00] VITALS: BP 145/74; PULSE 54; RESP 18; TEMP 98.5; O2SAT 97
[2017-05-29 07:26] VITALS: O2SAT 99
[2017-05-29] MEDS: RESP: IPRATROPIUM 0.5 MG/2.5 ML NEB NEB SCH (07:26)
[2017-05-29] MEDS: INSULIN ASPART SUPPLEMENTAL SCALE SQ SCH (08:00)
[2017-05-29] MEDS: METOPROLOL TARTRATE 50 MG TAB PO SCH ×2 (08:59→09:00)
[2017-05-29] MEDS: SODIUM CHLORIDE 0.9% FLUSH 10 ML FLUSH IV FLUSH SCH (08:59)
[2017-05-29] MEDS: POTASSIUM CHLORIDE 10 MEQ CONTROLLED RELEASE TAB PO SCH (08:59)
[2017-05-29] MEDS: methylPREDNISolone SOD SUCC 40 MG/1 ML VIAL IV PUSH SCH (08:59)
[2017-05-29] MEDS: ASPIRIN EC 81 MG TABEC PO SCH (09:00)
[2017-05-29] MEDS: SODIUM HYPOCHLORITE 0.125% 500 ML BTL TOPICAL SCH (09:00)
[2017-05-29] MEDS: INSULIN HUMAN NPH/R 70/30 1,000 UNITS/10 ML VIAL SQ SCH (09:00)
[2017-05-29] MEDS: COLLAGENASE OINT 30 GM TUBE TOPICAL SCH (09:00)
[2017-05-29] MEDS: ATORVASTATIN 40 MG TAB PO SCH (09:00)
--- NOTE | 2017-05-29 09:28 | HHI.PR ---
Subjective Remarks late entry for 05/28/17 pt not to surgery today due to fall and head contusion will attempt to transfer to [facility] for further care due to high risk Objective Vital Signs Date Time Temp Pulse Resp B/P (MAP) Pulse Ox O2 Delivery O2 Flow Rate FiO2 05/29/17 07:26 99 Nasal Cannula 4.00 05/29/17 07:00 54 05/29/17 07:00 98.5 54 18 145/74 (97) 97 05/29/17 07:00 97 Nasal Cannula 4.00 05/29/17 03:07 98 Nasal Cannula 4.00 05/29/17 03:07 56 05/29/17 03:07 98.0 57 15 147/74 (98) 98 05/28/17 23:19 60 05/28/17 23:19 95 Nasal Cannula 4.00 05/28/17 23:19 98.0 60 15 156/81 (106) 95 05/28/17 19:44 99 Nasal Cannula 4.00 05/28/17 19:15 99 Nasal Cannula 4.00 05/28/17 19:15 97.7 64 17 158/80 (106) 99 05/28/17 19:00 65 05/28/17 15:00 63 05/28/17 15:00 98.5 64 16 141/71 (94) 98 05/28/17 15:00 98 Nasal Cannula 4.00 05/28/17 11:00 97.7 61 18 158/81 (106) 97 05/28/17 11:00 60 05/28/17 11:00 97 Nasal Cannula 4.00 I/O 05/28/17 05/28/17 05/28/17 05/29/17 05/29/17 05/29/17 07:00 15:00 23:00 07:00 15:00 23:00 Intake Total 640 ml 1618 ml 922 ml Output Total 1000 ml 1000 ml 800 ml Balance -360 ml 618 ml 122 ml Intake Oral 240 ml 1100 ml 480 ml IV Total 400 ml 518 ml 442 ml Output Urine Total 1000 ml 1000 ml 800 ml # Voids 4 # Bowel Movements 0 1 Result Diagram: 05/27/17 0515 05/29/17 0326 Objective Remarks GENERAL: Well-nourished, well-developed patient. SKIN: Warm and dry. HEAD: Normocephalic.abrasion over left orbit EYES: No scleral icterus. No injection or drainage. NECK: Supple, trachea midline. No JVD or lymphadenopathy. CARDIOVASCULAR: Regular rate and rhythm without murmurs, gallops, or rubs. RESPIRATORY: Breath sounds equal bilaterally. No accessory muscle use.sounds decreased in bases GASTROINTESTINAL: Abdomen soft, non-tender, nondistended. EXTREMITIES: No cyanosis, or edema. open wound ankle NEUROLOGICAL: Awake, alert, and oriented x 3. Non-focal. Medications and IVs Inpatient Medications Albuterol/ Ipratropium (Duoneb Neb) 1 ampule Q2HR NEB PRN NEB short of breath Last administered on 05/24/17 11:41; Start 05/21/17 at 16:15 Aspirin (Aspirin Chew) 324 mg ONCE ONCE CHEW Last administered on 05/21/17 14:09; Start 05/21/17 at 14:00; Stop 05/21/17 at 14:01; Status DC Aspirin (Ecotrin Ec) 81 mg DAILY PO Last administered on 05/29/17 09:00; Start 05/22/17 at 09:00 Atorvastatin Calcium (Lipitor) 40 mg DAILY PO Last administered on 05/29/17 09: 00; Start 05/22/17 at 09:00 Cefazolin Sodium 500 mg/Sodium Chloride 505 ml @ 0 mls/hr CATTLE SPRAYER IRRIGATION ; Start 05/23/17 at 09:00; Stop 05/30/17 at 08:59 Cefazolin Sodium/ Dextrose 50 ml @ 150 mls/hr CATTLE SPRAYER IV ; Start 05/23/17 at 09:00; Stop 05/30/17 at 08:59 Chlorhexidine Gluconate (Hibiclens 4% Top Soln) 1 applic CATTLE SPRAYER TOPICAL ; Start 05/23/17 at 09:00; Stop 05/30/17 at 08:59 Collagenase (Santyl Oint) 1 applic DAILY TOPICAL Last administered on 05/29/17 09:00; Start 05/22/17 at 20:34 Dextrose (D50w (Vial) Inj) 50 ml UNSCH PRN IV PUSH HYPOGLYCEMIA-SEE COMMENTS; Start 05/23/17 at 09:00 Diltiazem HCl 125 mg/Sodium Chloride 125 ml @ 5 mls/hr TITRATE PRN IV Tachycardia Last administered on 05/24/17 09:26; Start 05/22/17 at 18:30 Enalapril Maleate (Vasotec) 20 mg BID PO Last administered on 05/24/17 21:29 ; Start 05/21/17 at 21:00; Stop 05/24/17 at 21:00; Status DC Furosemide (Lasix Inj) 40 mg BID@09,18 IV PUSH Last administered on 05/27/17 08 :15; Start 05/22/17 at 09:00; Stop 05/27/17 at 08:39; Status DC Furosemide (Lasix) 20 mg DAILY PO ; Start 05/23/17 at 09:00; Stop 05/23/17 at 09:00; Status DC Glucagon (Glucagon Inj) 1 mg UNSCH PRN OTHER HYPOGLYCEMIA-SEE COMMENTS; Start 05/21/17 at 16:15 Heparin Sodium (Porcine) (Heparin Inj) 2,500 units UNSCH PRN IV PUSH APTT 25 TO 39 Last administered on 05/25/17 05:15; Start 05/21/17 at 21:45 Heparin Sodium/ Dextrose 250 ml @ 10 mls/hr TITRATE PRN IV Coagulation Management Last administered on 05/28/17 17:27; Start 05/21/17 at 15:45 Insulin Aspart (NovoLOG SUPPLEMENTAL SCALE) 1 ACHS SLIDING SCALE SQ Last administered on 05/29/17 08:00; Start 05/21/17 at 17:00 Insulin Human Isoph/Insulin Regular (NovoLIN 70/30 INJ) 15 units BID SQ Last administered on 05/29/17 09:00; Start 05/21/17 at 21:00 Insulin Human Regular 100 units/ Sodium Chloride 100 ml @ 3 mls/hr TITRATE PRN IV for blood glucose control; Start 05/23/17 at 09:00; Stop 05/30/17 at 08:59 Ipratropium [place] (Atrovent Neb) 0.5 mg Q6HR WHILE AWAKE NEB NEB Last administered on 05/29/17 07:26; Start 05/24/17 at 14:00 Methylprednisolone Sodium Succinate (SoluMEDROL INJ) 40 mg Q12HR IV PUSH Last administered on 05/29/17 08:59; Start 05/24/17 at 21:00 Metoprolol Tartrate (Lopressor) 25 mg ONCE ONCE PO Last administered on 12/29/ 17at 11:54; Start 05/24/17 at 10:15; Stop 05/24/17 at 10:16; Status DC Miscellaneous Information SPECIFIC LAB TO BE ... ONCE ONCE .XX ; Start at 23:45; Stop 05/29/17 at 23:46 Miscellaneous Medication ([facility] Information) @ 700--HOLD CARDIZEM ... TITRATE PRN OTHER SEE LABEL COMMENTS; Start 05/23/17 at 17:15 Papaverine HCl 60 mg/Nitroglycerin 100 mcg/Diltiazem HCl 100 mg/Sodium Chloride 100 ml @ 0 mls/hr CATTLE [employer] IRRIGATION ; Start 05/23/17 at 09:00; Stop 05/30/17 at 08:59 Pharmacy Profile Note 0 ml @ 0 mls/hr UNSCH OTHER ; Start 05/22/17 at 11:45 Potassium Chloride (KCl) 10 meq BID PO Last administered on 05/29/17at 08:59; Start 05/21/17 at 21:00 Sodium Hypochlorite (Dakin'S 0.125% Soln) 50 ml DAILY TOPICAL Last administered on 05/29/17at 09:00; Start 05/22/17 at 20:32 Sodium Chloride (NS Flush) 2 ml UNSCH PRN IV FLUSH FLUSH AFTER USING IV ACCESS ; Start 05/23/17 at 09:00 Vancomycin HCl 1250 mg/Sodium Chloride 262.5 ml @ 250 mls/hr Q24H IV Last administered on 05/28/17at 23:10; Start 05/27/17 at 00:00 Vancomycin HCl 1500 mg/Sodium Chloride 515 ml @ 257.5 mls/ hr Q24H IV Last administered on 05/25/17 23:47; Start 05/23/17 at 00:00; Stop 05/26/17 at 09 :18; Status DC Vancomycin HCl 1750 mg/Sodium Chloride 517.5 ml @ 250 mls/hr ONCE ONCE IV Last administered on 05/22/17 00:07; Start 05/22/17 at 00:00; Stop 05/22/17 at 02:04; Status DC Assessment and Plan Problem List: (1) CHF (congestive heart failure) ICD Codes: I50.9 - Heart failure, unspecified Plan: cardiology to consult and diurese (2) COPD (chronic obstructive pulmonary disease) ICD Codes: J44.9 - Chronic obstructive pulmonary disease, unspecified Plan: duo nebs (3) Coronary artery disease ICD Codes: I25.10 - Atherosclerotic heart disease of robinson coronary artery without angina pectoris Plan: ultimately needs bypass surgery (4) Wound infection ICD Codes: T14.8XXA - Other injury of unspecified body region, initial encounter; L08.9 - Local infection of the skin and subcutaneous tissue, unspecified Plan: wound care consult attempt transfer to [facility] when bed available Assessment and Plan CHF COPD CAD MRSA WOUND Problem Qualifiers (1) CHF (congestive heart failure): Qualified Codes: I50.9 - Heart failure, unspecified (2) COPD (chronic obstructive pulmonary disease): Qualified Codes: J44.1 - Chronic obstructive pulmonary disease with (acute) exacerbation Frederic Vincent DO May 29, 2017 09:28
[2017-05-29] MEDS ORDERED: RESP: ALBUTEROL 2.5 MG/IPRATROPIUM 0.5 MG NEB (PRN) NEB (09:45)
[2017-05-29] MEDS ORDERED: PILL SPLITTER OTHER PRN (10:15)
[2017-05-29] MEDS ORDERED: glipiZIDE 5 MG TAB PO SCH (16:00)
[2017-05-29] MEDS ORDERED: metFORMIN HCL 500 MG TAB PO SCH (18:00)
[2017-05-29] MEDS ORDERED: PHARMACY ORDERED LAB ONE (23:45)
[2017-05-30] MEDS ORDERED: COLLAGENASE OINT 30 GM TUBE TOPICAL SCH (09:00)
[2017-05-30] MEDS ORDERED: POTASSIUM CHLORIDE 20 MEQ CONTROLLED RELEASE TAB PO SCH (09:00)
[2017-05-30] MEDS ORDERED: [UNRECOGNIZED DRUG - OTHER] IV SCH (09:00)
[2017-05-30] MEDS ORDERED: VANCOMYCIN HCL IN DEXTROSE IV SCH (09:00)
--- NOTE | 2017-05-30 09:03 | RSPPFT ---
DATE OF PROCEDURE: 05/26/17 COMMENTS: The forced vital capacity is markedly reduced. The FEV1 and FEF 25-75 are both markedly reduced. The FEV1/FVC ratio is normal. IMPRESSION: This is compatible with severe restrictive lung disease with a possible large and small airways obstructive component. A total lung capacity would be helpful.
== END 2017-05-29 18:00 | disposition short-term general hospital (02) | DRG 281 ==
LOC: NEPC 12:14 → INTOOBSV 15:37 → NEDA 15:37 → HCIS 17:17 → OBSVTOIN 05-23 11:21 → HCVI 05-27 10:04
PROVIDERS: ADMIT Family Medicine; ATTEND Family Medicine
DX: I11.0 Hypertensive heart disease with heart failure (principal); I50.23 Acute on chronic systolic (congestive) heart failure; I21.4 Non-ST elevation (NSTEMI) myocardial infarction; J44.1 Chronic obstructive pulmonary disease with (acute) exacerbation; E11.69 Type 2 diabetes mellitus with other specified complication; E11.622 Type 2 diabetes mellitus with other skin ulcer; Z79.4 Long term (current) use of insulin; Z79.84 Long term (current) use of oral hypoglycemic drugs; M86.9 Osteomyelitis, unspecified; B95.62 Methicillin resistant Staphylococcus aureus infection as the cause of diseases classified elsewhere; B95.0 Streptococcus, group A, as the cause of diseases classified elsewhere; I48.91 Unspecified atrial fibrillation; I73.9 Peripheral vascular disease, unspecified; S00.81XA Abrasion of other part of head, initial encounter; W19.XXXA Unspecified fall, initial encounter; Y92.230 Patient room in hospital as the place of occurrence of the external cause; R26.81 Unsteadiness on feet; I25.10 Atherosclerotic heart disease of native coronary artery without angina pectoris; Z53.09 Procedure and treatment not carried out because of other contraindication; I25.5 Ischemic cardiomyopathy; E78.5 Hyperlipidemia, unspecified; Z87.891 Personal history of nicotine dependence; Z85.820 Personal history of malignant melanoma of skin
CPT/HCPCS: 70450; 71010; 71046; 80048; 80053; 80202; 81001; 82565; 82948; 83735; 83880; 84100; 84484; 85025; 85610; 85652; 85730; 86850; 86900; 86901; 86920; 87641; 93005; 93306; 94010; 94640; 94664; 96365; 96366; 96372; 96375; 96376; G0378; J0171; J0461; J0690; J1644; J1815; J1940; J2920; J2930; J3370; J7040; J7050; J7644

== ENCOUNTER 2017-06-26 01:42 | Inpatient (IN) | payer MEDICARE, MEDICAID ==
[2017-06-26] VITALS (24 sets, daily range): BP systolic 104–166; BP diastolic 55–76; PULSE 60–114; RESP 17–26; TEMP 98–98.6; O2SAT 89–100
[~2017-06-26] VITALS: Ht 180.3 cm; Wt 80.8 kg
[2017-06-26] MEDS ORDERED: FUROSEMIDE 100 MG/10 ML VIAL IVP ONE (02:00)
[2017-06-26] MEDS ORDERED: NITROGLYCERIN 2% OINT 1 GM PACKET TOPICAL ONE (02:00)
[2017-06-26] MEDS ORDERED: SODIUM CHLORIDE 0.9% FLUSH 10 ML FLUSH IVF PRN (02:00)
[2017-06-26] MEDS ORDERED: NITROGLYCERIN 0.4 MG SL 25 TABS/BTL SL PRN (02:00)
[2017-06-26] MEDS ORDERED: RESP: ALBUTEROL 2.5 MG/IPRATROPIUM 0.5 MG NEB (SCH) INH ONE (02:00)
--- NOTE | 2017-06-26 02:05 | PD ---
HPI Chief Complaint: Respiratory Symptoms Time Seen by Provider: 01:55 Travel History International Travel<30 days: No Contact w/Intl Traveler<30days: No Traveled to known affect area: No History of Present Illness HPI The patient is a 72 year old male who presents to the [facility] emergency department with a history of sudden onset of shortness of breath approximately an hour prior to arrival. The patient reportedly had not gone to sleep yet. He denies having any chest pain or chest pressure. The patient reports that he was recently in the hospital and had cardiac stents placed. According to the patient he is also planning to undergo coronary artery bypass grafting. The patient has a known history of COPD. When ambulance services arrived the patient was noted to have O2 saturations in the 80s. The patient was noted to have wheezing in bilateral lung costa. The patient was started on albuterol nebulizer treatments. The patient then en route to this facility was noted to have crackles develop. The patient was placed on CPAP. On arrival the patient was placed on BiPAP by respiratory therapy and his O2 saturation improved to 99- 100%. The patient reported feeling improved. He continues to deny having any chest pain or pressure. He is unsure of whether he has any prior history of congestive heart failure. On review of systems otherwise, the patient denies having any known recent fevers, worsening cough or congestion, neck pain, abdominal pain, vomiting, diarrhea, urinary symptoms, or neurologic symptoms. 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 Cardiac Catheterization: Yes Congestive Heart Failure: Yes Diabetes: Yes Patient Takes Glucophage: Yes (06/15/17 08:00) Diminished Hearing: Yes ([facility]) Hypertension: Yes Past Surgical History Narrative Surgical The patient's past surgical history is significant for cardiac catheterization with stent placement reportedly 4. Coronary Stent: Yes Social History Alcohol Use: No Tobacco Use: No (QUIT APR 2017) Substance Use: No Allergies-Medications (Allergen,Severity, Reaction): Coded Allergies: acetaminophen (Verified Allergy, Unknown, 06/26/17) codeine (Verified Allergy, Unknown, 06/26/17) propoxyphene (Verified Allergy, Unknown, 06/26/17) Reported Meds & Prescriptions Reported Meds & Active Scripts Active Reported Enalapril (Enalapril Maleate) 20 Mg Tab 20 Mg PO DAILY Clopidogrel (Clopidogrel Bisulfate) 75 Mg Tab 75 Mg PO DAILY Atorvastatin (Atorvastatin Calcium) 80 Mg Tab 80 Mg PO HS Aspir-81 (Aspirin) 81 Mg Tabdr Amlodipine (Amlodipine Besylate) 5 Mg Tab 5 Mg PO DAILY Zinc Sulfate 220 Mg Tab 220 Mg PO DAILY Warfarin 5 Mg Tab 5 Mg PO DAILY Vitamin C (Ascorbic Acid) 250 Mg Tab 250 Mg PO Metoprolol Succinate ER 24 HR (Metoprolol Succinate) 100 Mg Tab 150 Mg PO DAILY Metformin (Metformin HCl) 1,000 Mg Tab 1,000 Mg PO BIDPC Humalog Inj (Insulin Human Lispro) 1,000 Unit/10 Ml Vial 1-9 Units SQ ACHS Max dose at bedtime:( )units; sugars< 70,(0)units; sugars 150-199,(1)unit; sugars 200-249,(3)units; sugars 250-299,(5)units; sugars 300-349,(7)units; sugars more than 349,(9)units. Glipizide 5 Mg Tab 5 Mg PO DAILY Take 30 minutes before a meal Review of Systems Except as stated in HPI: all other systems reviewed are Neg General / Constitutional: No: Fever Eyes: No: Visual changes HENT: No: Headaches Cardiovascular: Positive: Dyspnea on exertion, Edema, No: Chest Pain or Discomfort Respiratory: Positive: Cough, Shortness of Breath Gastrointestinal: No: Abdominal Pain Genitourinary: No: Dysuria Musculoskeletal: No: Pain Skin: No Rash Neurologic: No: Weakness Psychiatric: No: Depression Endocrine: No: Polydipsia Hematologic/Lymphatic: No: Easy Bruising Physical Exam Narrative General: The patient is a well-developed well-nourished male, short of breath on arrival with accessory muscle use noted and retractions. Head and Neck exam: Head is normocephalic atraumatic. Eyes: EOMI, pupils are equal round and reactive to light. Nose: Midline septum with pink mucous membranes Mouth: Dentition unremarkable. Moist mucus membranes. Posterior oropharynx is not erythematous. No tonsillar hypertrophy. Uvula midline. Airway patent. Neck: No palpable lymphadenopathy. No nuchal rigidity. No thyromegaly. Cardiovascular: Tachycardia in the low 100s without murmurs, gallops, or rubs. Lungs: Crackles audible in bilateral lung costa half way up from the bases, soft expiratory wheezes audible anteriorly. No rhonchi audible. The patient has accessory muscle use noted. The patient has no paroxysmal abdominal breathing noted. Abdomen: Soft, without tenderness to palpation in all 4 quadrants of the abdomen. No guarding, rebound, or rigidity. Normal bowel sounds are audible. No tenderness on palpation of McBurney's point. Extremities: No clubbing or cyanosis. The patient has 1+ pitting edema bilateral lower extremities. 2+ pulses in all 4 extremities. No calf tenderness on palpation. The patient on examination of the lateral aspect of the left ankle is noted to have an approximately 4 cm area of ulceration with a rim of erythema noted. No active drainage. He reports that this wound is been there since April. He denies any change in it over that period of time. Back: No costovertebral angle tenderness to palpation. Neurologic Exam: Grossly nonfocal. Skin Exam: No rash noted. Intact skin that is warm and dry. Data Data Last Documented VS Vital Signs Date Time Temp Pulse Resp B/P (MAP) Pulse Ox O2 Delivery O2 Flow Rate FiO2 06/26/17 04:00 76 18 124/57 (79) 100 BiPAP 06/26/17 03:20 40 Orders Orders Complete Blood Count With Diff (06/26/17 01:55) Comprehensive Metabolic Panel (06/26/17 01:55) B-Type Natriuretic Peptide (06/26/17 01:55) Act Partial Throm Time (Ptt) (06/26/17 01:55) Prothrombin Time / Inr (Pt) (06/26/17 01:55) Magnesium (Mg) (06/26/17 01:55) Ckmb (Isoenzyme) Profile (06/26/17 01:55) Troponin I (06/26/17 01:55) Iv Access Insert/Monitor (06/26/17 01:55) Electrocardiogram (06/26/17 01:55) Ecg Monitoring (06/26/17 01:55) Oximetry (06/26/17 01:55) Oxygen Administration (06/26/17 01:55) Chest, Single Ap (06/26/17 01:55) Sodium Chloride 0.9% Flush (Ns Flush) (06/26/17 02:00) Albuterol-Ipratropium Neb (Duoneb Neb) (06/26/17 02:00) Furosemide Inj (Lasix Inj) (06/26/17 02:00) Nitroglycerin 2% Oint (Nitroglycerin 2% (06/26/17 02:00) Nitroglycerin Sl (Nitrostat Sl) (06/26/17 02:00) Heparin Inj (Heparin Inj) (06/26/17 03:45) Heparin-D5w 25,000 U/250 Ml (Heparin-D5w (06/26/17 03:45) Act Partial Throm Time (Ptt) (06/26/17 03:32) Prothrombin Time / Inr (Pt) (06/26/17 03:32) Cbc No Diff, Includes Plts (06/26/17 03:32) Cbc No Diff, Includes Plts (06/29/17 06:00) Act Partial Throm Time (Ptt) (06/26/17 10:32) Occult Blood (Hemoccult) Stool (06/26/17 03:32) Arterial Blood Gas (Abg) (06/26/17 03:33) Admit Order (Ed Use Only) (06/26/17 04:11) Consult Cardiology (06/26/17 ) Labs Laboratory Tests Test 06/26/17 02:19 06/26/17 03:40 White Blood Count 12.6 TH/MM3 Red Blood Count 4.88 MIL/MM3 Hemoglobin 13.0 GM/DL Hematocrit 39.8 % Mean Corpuscular Volume 81.5 FL Mean Corpuscular Hemoglobin 26.7 PG Mean Corpuscular Hemoglobin Concent 32.7 % Red Cell Distribution Width 16.8 % Platelet Count 469 TH/MM3 Mean Platelet Volume 8.0 FL Neutrophils (%) (Auto) 67.2 % Lymphocytes (%) (Auto) 21.2 % Monocytes (%) (Auto) 8.9 % Eosinophils (%) (Auto) 1.8 % Basophils (%) (Auto) 0.9 % Neutrophils # (Auto) 8.5 TH/MM3 Lymphocytes # (Auto) 2.7 TH/MM3 Monocytes # (Auto) 1.1 TH/MM3 Eosinophils # (Auto) 0.2 TH/MM3 Basophils # (Auto) 0.1 TH/MM3 CBC Comment DIFF FINAL Differential Comment Prothrombin Time 11.8 SEC Prothromb Time International Ratio 1.2 RATIO Activated Partial Thromboplast Time 26.1 SEC Blood Urea Nitrogen 16 MG/DL Creatinine 1.12 MG/DL Random Glucose 248 MG/DL Total Protein 7.6 GM/DL Albumin 3.3 GM/DL Calcium Level 8.2 MG/DL Magnesium Level 2.2 MG/DL Alkaline Phosphatase 149 U/L Aspartate Amino Transf (AST/SGOT) 19 U/L Alanine Aminotransferase (ALT/SGPT) 20 U/L Total Bilirubin 0.3 MG/DL Sodium Level 142 MEQ/L Potassium Level 3.9 MEQ/L Chloride Level 107 MEQ/L Carbon Dioxide Level 27.5 MEQ/L Anion Gap 8 MEQ/L Estimat Glomerular Filtration Rate 65 ML/MIN Total Creatine Kinase 86 U/L Troponin I 0.32 NG/ML B-Type Natriuretic Peptide 1526 PG/ML Blood Gas Puncture Site LT BRACHIAL Blood Gas Patient Temperature 98.6 Blood Gas HCO3 23 mmol/L Blood Gas Base Excess -0.5 mmol/L Blood Gas Oxygen Saturation 97 % Arterial Blood pH 7.42 Arterial Blood Partial Pressure CO2 37 mmHg Arterial Blood Partial Pressure O2 112 mmHG Arterial Blood Oxygen Content 14.7 Vol % Arterial Blood Carboxyhemoglobin 1.8 % Arterial Blood Methemoglobin 0.5 % Blood Gas Hemoglobin 10.7 G/DL Oxygen Delivery Device BiPAP Blood Gas Ventilator Setting 12IPAP/7EPAP Blood Gas Inspired Oxygen 40 % [facility] Medical Decision Making Medical Screen Exam Complete: Yes Emergency Medical Condition: Yes Medical Record Reviewed: Yes Interpretation(s) Last Impressions Chest X-Ray 06/26/17 0155 Signed Impressions: Service Date/Time: Monday, June 26, 2017 02:05 - CONCLUSION: Lower lung consolidation, right greater than left. Differential diagnosis includes pneumonia and congestive heart failure. Small effusions. Theo Allen MD Differential Diagnosis COPD exacerbation, versus congestive heart failure exacerbation, versus pneumonia, versus acute coronary syndrome Narrative Course During the course of the patients emergency department visit, the patients history, examination, and differential diagnosis were reviewed with the patient. The patient was placed on a social service liaison with oximetry and frequent blood pressure monitoring. The patient had [-] IV access obtained and blood work sent for analysis. An EKG that shows a heart rate of 108, no acute ST segment elevation is noted. T waves are inverted in lead 1, 2, aVF, V4, V5, V6. The patient was initially provided Lasix 60 mg IV, nitroglycerin 1 inch the chest wall, nitroglycerin sublingual every 5 minutes 3 when necessary chest pain. The patients laboratory studies were reviewed and remarkable for a white count of 12.6, hemoglobin 13, platelets 469, 8.9 monocytes, CMP is remarkable for a glucose of 248, alkaline phosphatase 149, troponin I 0.32, the BKA 86, BNP 1526 , albumin 3.3, PT 11.8, PTT 26.1 Radiology studies were reviewed and remarkable for a chest x-ray reveals a lower lung consolidation right greater than the left differential diagnosis includes pneumonia and congestive heart failure, small effusions. Given the patient's sudden onset of symptoms and history of CHF with elevated BNP the patient's symptoms are most consistent with a CHF exacerbation. The patients results were discussed with the patient, including the plan of care. I explained that further testing and/ or monitoring is indicated based on the patients history, examination, and/ or laboratory findings. Therefore, I recommended admission for additional evaluation. The patient expressed understanding and was agreeable with this plan. The patient was admitted to the hospital in guarded condition and sent to a bed under the care of the [facility] service. Physician Communication Physician Communication The patient's case including history, pertinent physical examination findings, and laboratory studies were discussed with Dr. Weiss. It was agreed that the patient would be admitted to the [facility] service. Unfortunately was made aware after the patient was noted to the [facility] service at the patient's primary care physician is actually Dr. Vincent. He does admit his own patients. A call was placed out to him at approximate 5:45 AM regarding this patient's admission. I spoke to Daniela his assistant field hockey coach provider who did agree to admit the patient to CICU for continued evaluation and treatment. A missed gram was sent regarding the patient's transfer of attending from Dr. Weiss to Dr. Vincent. Diagnosis Primary Impression: Hypoxemia Additional Impressions: Acute exacerbation of congestive heart failure Qualified Codes: I50.9 - Heart failure, unspecified Elevated troponin Admitting Information Admitting Physician Requests: Admit Moraima Lopez MD Jun 26, 2017 02:04
--- NOTE | 2017-06-26 02:23 | RADRPT ---
EXAM DATE/TIME: 06/26/2017 02:05 [place] COMPARISON: No previous studies available for comparison. INDICATIONS : Short of breath. MEDICAL HISTORY : None. SURGICAL HISTORY : None. ENCOUNTER: Initial ACUITY: 1 day PAIN SCORE: 0/10 LOCATION: Bilateral chest FINDINGS: A single view of the chest demonstrates basilar airspace consolidation, right greater than left with small effusions. No pneumothorax. Heart size upper limits normal. CONCLUSION: Lower lung consolidation, right greater than left. Differential diagnosis includes pneumonia and cas estive heart failure. Small effusions. Theo Allen MD on June 26, 2017 at 2:19 Board Certified Radiologist. This report was verified electronically.
[2017-06-26 02:28] LABS: AUTOMATED NEUTROPHIL # 8.5 TH/MM3 (1.8-7.7); BASOPHIL # 0.1 TH/MM3 (0-0.2); BASOPHIL % 0.9 % (0.0-2.0); EOSINOPHIL # 0.2 TH/MM3 (0-0.4); EOSINOPHIL % 1.8 % (0.0-4.0); HEMATOCRIT 39.8 % (39.0-51.0); LYMPH % 21.2 % (9.0-44.0); LYMPHOCYTE # 2.7 TH/MM3 (1.0-4.8); MEAN CELL VOLUME 81.5 FL (80.0-100.0); MEAN CORPUSCULAR HEMOGLOBIN 26.7 PG (27.0-34.0); MEAN CORPUSCULAR HGB CONC 32.7 % (32.0-36.0); MONO % 8.9 % (0.0-8.0); MONOCYTE # 1.1 TH/MM3 (0-0.9); NEUT % 67.2 % (16.0-70.0); PLATELET COUNT 469 TH/MM3 (150-450); RED BLOOD COUNT 4.88 MIL/MM3 (4.50-5.90); RED CELL DISTRIBUTION WIDTH 16.8 % (11.6-17.2); WHITE BLOOD COUNT 12.6 TH/MM3 (4.0-11.0)
[2017-06-26 02:37] LABS: INTERNATIONAL NORMALIZED RATIO 1.2 RATIO; PROTHROMBIN TIME - PATIENT 11.8 SEC (9.8-11.6)
[2017-06-26] MEDS ORDERED: AMLO5TAB2 PO (02:38)
[2017-06-26] MEDS ORDERED: ATOR80TA45 PO (02:38)
[2017-06-26] MEDS ORDERED: ZINC220T PO (02:38)
[2017-06-26] MEDS ORDERED: WARF-23 PO (02:38)
[2017-06-26] MEDS ORDERED: GLIP5TAB8 PO (02:38)
[2017-06-26] MEDS ORDERED: CLOP75TA PO (02:38)
[2017-06-26] MEDS ORDERED: ASPI81TA81 (02:38)
[2017-06-26] MEDS ORDERED: METF1000 PO (02:38)
[2017-06-26] MEDS ORDERED: VITA250T3 PO (02:38)
[2017-06-26] MEDS ORDERED: HUMALOG SQ (02:38)
[2017-06-26] MEDS ORDERED: METO1TAB43 PO (02:38)
[2017-06-26] MEDS ORDERED: ENAL20TA PO (02:38)
[2017-06-26 02:41] LABS: ALBUMIN 3.3 GM/DL (3.4-5.0); AST (GOT) 19 U/L (15-37); BICARBONATE 27.5 MEQ/L (21.0-32.0); BLOOD UREA NITROGEN 16 MG/DL (7-18); CALCIUM 8.2 MG/DL (8.5-10.1); CHLORIDE 107 MEQ/L (98-107); CREATININE 1.12 MG/DL (0.60-1.30); GLOMERULAR FILTRATION RATE 65 ML/MIN (>89); GLUCOSE,RANDOM 248 MG/DL (74-106); MAGNESIUM 2.2 MG/DL (1.5-2.5); SODIUM (NA) 142 MEQ/L (136-145)
[2017-06-26 02:46] LABS: ALKALINE PHOSPHATASE 149 U/L (45-117); ALT (GPT) 20 U/L (12-78); TOTAL BILIRUBIN ADULT 0.3 MG/DL (0.2-1.0); TOTAL PROTEIN 7.6 GM/DL (6.4-8.2); TROPONIN I 0.32 NG/ML (0.02-0.05)
[2017-06-26] MEDS ORDERED: HEPARIN SODIUM - IV 10,000 UNITS/10 ML VIAL IV ONE (03:45)
[2017-06-26] MEDS: HEPARIN-D5W 25,000 U/250 ML 250 ML IV PRN (03:55)
[2017-06-26] MEDS ORDERED: SODIUM CHLORIDE 0.9% FLUSH 10 ML FLUSH IV FLUSH PRN (04:45)
[2017-06-26] MEDS ORDERED: DEXTROSE 50% IN WATER 50 ML VIAL(D50) IV PUSH PRN (05:00)
[2017-06-26] MEDS ORDERED: GLUCAGON 1 MG/ML VIAL OTHER PRN (05:00)
--- NOTE | 2017-06-26 05:29 | HHI.HP ---
HPI Service [facility] Phys[facility] Chito Wahl MD Admission Diagnosis CHF exacerbation, Non-STEMI Diagnoses: Travel History International Travel<30 Days: No Contact w/Intl Traveler <30 Da: No Traveled to Known Affected Are: No History of Present Illness 72-year-old male with a past medical history significant for CAD, COPD and diabetes mellitus who is a custodial resident was brought to the emergency department for evaluation of respiratory distress. The patient reports that he was in his usual state of health on the custodial when suddenly he could not breathe. EMS was called who initially gave him 2 breathing treatments without improvement. The patient's oxygen saturation was in the 80s and crackles were auscultated by EMS. He was started on CPAP with subsequent improvement in his saturations. Patient denies any associated chest pain. Denies nausea/ vomiting. Denies fever/chills. No cough. He was found to be in atrial fibrillation with RVR on arrival to the emergency department which subsequently improved with improvement in his respiration. Patient is an extremely poor historian with minimal medical records available. Review of Systems Except as stated in HPI: all other systems reviewed are Neg Past Family Social History Past Medical History COPD CAD status post stent placement Type 2 diabetes mellitus History of MRSA cellulitis Past Surgical History Patient had an unknown amount of stents placed on 2 separate occasions Reported Medications Reported Meds & Active Scripts Active Reported Enalapril (Enalapril Maleate) 20 Mg Tab 20 Mg PO DAILY Clopidogrel (Clopidogrel Bisulfate) 75 Mg Tab 75 Mg PO DAILY Atorvastatin (Atorvastatin Calcium) 80 Mg Tab 80 Mg PO HS Aspir-81 (Aspirin) 81 Mg Tabdr Amlodipine (Amlodipine Besylate) 5 Mg Tab 5 Mg PO DAILY Zinc Sulfate 220 Mg Tab 220 Mg PO DAILY Warfarin 5 Mg Tab 5 Mg PO DAILY Vitamin C (Ascorbic Acid) 250 Mg Tab 250 Mg PO Metoprolol Succinate ER 24 HR (Metoprolol Succinate) 100 Mg Tab 150 Mg PO DAILY Metformin (Metformin HCl) 1,000 Mg Tab 1,000 Mg PO BIDPC Humalog Inj (Insulin Human Lispro) 1,000 Unit/10 Ml Vial 1-9 Units SQ ACHS Max dose at bedtime:( )units; sugars< 70,(0)units; sugars 150-199,(1)unit; sugars 200-249,(3)units; sugars 250-299,(5)units; sugars 300-349,(7)units; sugars more than 349,(9)units. Glipizide 5 Mg Tab 5 Mg PO DAILY Take 30 minutes before a meal Allergies: Coded Allergies: acetaminophen (Verified Allergy, Unknown, 06/26/17) codeine (Verified Allergy, Unknown, 06/26/17) propoxyphene (Verified Allergy, Unknown, 06/26/17) Family History Both parents with CAD Social History Quit tobacco on 05/05/17. Denies alcohol, illicit drugs Physical Exam Vital Signs Vital Signs Date Time Temp Pulse Resp B/P (MAP) Pulse Ox O2 Delivery O2 Flow Rate FiO2 06/26/17 04:55 99 Nasal Cannula 4.00 06/26/17 04:00 76 18 124/57 (79) 100 BiPAP 06/26/17 03:30 76 18 114/56 (75) 100 06/26/17 03:20 100 40 06/26/17 03:00 74 18 104/55 (71) 100 BiPAP 06/26/17 02:20 93 50 06/26/17 02:15 106 18 166/74 (104) 91 BiPAP 06/26/17 02:12 90 BiPAP 35 06/26/17 02:11 90 BiPAP 35 06/26/17 01:56 107 20 149/76 (100) 92 BiPAP 35 06/26/17 01:51 26 99 BiPAP 100 06/26/17 01:50 96 35 06/26/17 01:46 114 26 99 Physical Exam GENERAL: male sitting up in bed, on BiPAP SKIN: 2 cm ulceration on the left great toe HEAD: Atraumatic. Normocephalic. No temporal or scalp tenderness. EYES: Pupils equal round and reactive. Extraocular motions intact. No scleral icterus. No injection or drainage. ENT: Nose without bleeding, purulent drainage or septal hematoma. Throat without erythema, tonsillar hypertrophy or exudate. Uvula midline. Airway patent. NECK: Trachea midline. No JVD or lymphadenopathy. Supple, nontender, no meningeal signs. CARDIOVASCULAR: Regular rate and irregularly irregular rhythm without murmurs, gallops, or rubs. RESPIRATORY: Bilateral crackles in the bases. No wheezes, rales, or rhonchi. GASTROINTESTINAL: Abdomen soft, non-tender, nondistended. No hepato-splenomegaly , or palpable masses. No guarding. MUSCULOSKELETAL: Extremities without clubbing, cyanosis, or edema. No joint tenderness, effusion, or edema noted. No calf tenderness. NEUROLOGICAL: Awake and alert. Cranial nerves II through XII intact. Motor and sensory grossly within normal limits. Normal speech. Laboratory Laboratory Tests Test 06/26/17 02:19 06/26/17 03:40 White Blood Count 12.6 Red Blood Count 4.88 Hemoglobin 13.0 Hematocrit 39.8 Mean Corpuscular Volume 81.5 Mean Corpuscular Hemoglobin 26.7 Mean Corpuscular Hemoglobin Concent 32.7 Red Cell Distribution Width 16.8 Platelet Count 469 Mean Platelet Volume 8.0 Neutrophils (%) (Auto) 67.2 Lymphocytes (%) (Auto) 21.2 Monocytes (%) (Auto) 8.9 Eosinophils (%) (Auto) 1.8 Basophils (%) (Auto) 0.9 Neutrophils # (Auto) 8.5 Lymphocytes # (Auto) 2.7 Monocytes # (Auto) 1.1 Eosinophils # (Auto) 0.2 Basophils # (Auto) 0.1 CBC Comment DIFF FINAL Differential Comment Prothrombin Time 11.8 Prothromb Time International Ratio 1.2 Activated Partial Thromboplast Time 26.1 Blood Urea Nitrogen 16 Creatinine 1.12 Random Glucose 248 Total Protein 7.6 Albumin 3.3 Calcium Level 8.2 Magnesium Level 2.2 Alkaline Phosphatase 149 Aspartate Amino Transf (AST/SGOT) 19 Alanine Aminotransferase (ALT/SGPT) 20 Total Bilirubin 0.3 Sodium Level 142 Potassium Level 3.9 Chloride Level 107 Carbon Dioxide Level 27.5 Anion Gap 8 Estimat Glomerular Filtration Rate 65 Total Creatine Kinase 86 Troponin I 0.32 B-Type Natriuretic Peptide 1526 Blood Gas Puncture Site LT BRACHIAL Blood Gas Patient Temperature 98.6 Blood Gas HCO3 23 Blood Gas Base Excess -0.5 Blood Gas Oxygen Saturation 97 Arterial Blood pH 7.42 Arterial Blood Partial Pressure CO2 37 Arterial Blood Partial Pressure O2 112 Arterial Blood Oxygen Content 14.7 Arterial Blood Carboxyhemoglobin 1.8 Arterial Blood Methemoglobin 0.5 Blood Gas Hemoglobin 10.7 Oxygen Delivery Device BiPAP Blood Gas Ventilator Setting 12IPAP/7EPAP Blood Gas Inspired Oxygen 40 Result Diagram: 06/26/1721806/26/17218 Caprini VTE Risk Assessment Caprini VTE Risk Assessment: Mod/High Risk (score >= 2) Caprini Risk Assessment Model Point Value = 1 Point Value = 2 Point Value = 3 Point Value = 5 Age 41-60 Minor surgery BMI > 25 kg/m2 Swollen legs Varicose veins or History of unexplained or recurrent spontaneous Oral contraceptives or hormone replacement Sepsis (< 1 month) Serious lung disease, including pneumonia (< 1 month) Abnormal pulmonary function Acute myocardial infarction Congestive heart failure (< 1 month) History of inflammatory bowel disease Medical patient at bed rest Age 61-74 Arthroscopic surgery Major open surgery (> 45 min) Laparoscopic surgery (> 45 min) Malignancy Confined to bed (> 72 hours) Immobilizing plaster cast Central venous access Age >= 75 History of VTE Family history of VTE Factor V Leiden Prothrombin [id number] Lupus anticoagulant Anticardiolipin antibodies Elevated serum homocysteine Heparin-induced thrombocytopenia Other congenital or acquired thrombophilia Stroke (< 1 month) Elective arthroplasty Hip, pelvis, or leg fracture Acute spinal cord injury (< 1 month) Prophylaxis Regimen Total Risk Factor Score Risk Level Prophylaxis Regimen 0-1 Low Early ambulation 2 Moderate Order ONE of the following: *Sequential Compression Device (SCD) *Heparin 5000 units SQ BID 3-4 Higher Order ONE of the following medications: *Heparin 5000 units SQ TID *Enoxaparin/Lovenox 40 mg SQ daily (WT < 150 kg, CrCl > 30 mL/min) *Enoxaparin/Lovenox 30 mg SQ daily (WT < 150 kg, CrCl > 10-29 mL/min) *Enoxaparin/Lovenox 30 mg SQ BID (WT < 150 kg, CrCl > 30 mL/min) AND/OR *Sequential Compression Device (SCD) 5 or more Highest Order ONE of the following medications: *Heparin 5000 units SQ TID (Preferred with Epidurals) *Enoxaparin/Lovenox 40 mg SQ daily (WT < 150 kg, CrCl > 30 mL/min) *Enoxaparin/Lovenox 30 mg SQ daily (WT < 150 kg, CrCl > 10-29 mL/min) *Enoxaparin/Lovenox 30 mg SQ BID (WT < 150 kg, CrCl > 30 mL/min) AND *Sequential Compression Device (SCD) Assessment and Plan Assessment and Plan Assessment/plan: 1. NSTEMI/CAD Troponin 0.32, baseline unknown EKG significant for A. fib with RVR, no ST segment elevations or depressions, personally reviewed Heparin drip Serial troponin/EKGs Cardiology consulted, appreciate recommendations Continue Plavix for recent stent placement 2. Respiratory distress/CHF exacerbation Chest x-ray significant for bilateral lower lung consolidation with small effusions, personally reviewed Suspect secondary to CHF exacerbation BNP 1526 IV Lasix Monitor for signs of infection Wean BiPAP as tolerated 3. Atrial fibrillation with rapid ventricular response Resolved Continue home medications Holding home Coumadin for possible cardiac intervention INR subtherapeutic Restart once cleared by cardiology 4. Diabetes mellitus SSI Monitor blood glucose 5. COPD BiPAP DuoNeb's FEN NPO Electrolytes: monitor and replete prn Heparin ggt Case discussed with ER physician at length Physician Certification 2 Midnight Certification Type: Admission for Inpatient Services Order for Inpatient Services The services are ordered in accordance with Medicare regulations or non- Medicare payer requirements, as applicable. In the case of services not specified as inpatient-only, they are appropriately provided as inpatient services in accordance with the 2-midnight benchmark. Estimated LOS (days): 2 2 days is the estimated time the patient will need to remain in the hospital, assuming treatment plan goals are met and no additional complications. Post-Hospital Plan: Not yet determined Kylie Weiss MD Jun 26, 2017 05:29
[2017-06-26] MEDS: CLOPIDOGREL 75 MG TAB PO SCH (08:37)
[2017-06-26] MEDS: amLODIPine BESYLATE 5 MG TAB PO SCH (08:37)
[2017-06-26] MEDS: ENALAPRIL MALEATE 10 MG TAB PO SCH (08:37)
[2017-06-26] MEDS: FUROSEMIDE 40 MG/4 ML VIAL IVP SCH ×2 (08:38→18:36)
[2017-06-26] MEDS: METOPROLOL SUCCINATE 50 MG EXTENDED RELEASE TAB PO SCH (08:38)
[2017-06-26] MEDS: SODIUM CHLORIDE 0.9% FLUSH 10 ML FLUSH IV FLUSH SCH ×2 (08:38→20:39)
[2017-06-26] MEDS: NITROGLYCERIN 2% OINT 1 GM PACKET TOP SCH ×3 (08:39→20:39)
[2017-06-26] MEDS ORDERED: METOPROLOL TARTRATE 25 MG TAB PO SCH (09:00)
[2017-06-26] MEDS: INSULIN ASPART SUPPLEMENTAL SCALE SQ SCH ×4 (09:11→20:46)
--- NOTE | 2017-06-26 09:45 | EKG ---
Date Performed: 06/26/2017 Time Performed: 07:43:09 PTAGE: 72 years EKG: Sinus rhythm WITH FIRST DEGREE AV BLOCK LEFT VENTRICULAR HYPERTROPHY AND ST-T CHANGE INFERIOR MYOCARDIAL INFARCTI ON , PROBABLY OLD ABNORMAL ECG Since the prior tracing, there has been no significant change PREVIOUS TRACING : 06/26/2017 01.51 DOCTOR: Enrrique Wright Interpretating Date/Time 06/26/2017 09:43:57
--- NOTE | 2017-06-26 09:46 | EKG ---
Date Performed: 06/26/2017 Time Performed: 01:51:13 PTAGE: 72 years EKG: ATRIAL FIBRILLATION WITH RAPID VENTRICULAR RESPONSE PROBABLE INFERIOR MYOCARDIAL INFARCTION MODERATE T-WAVE ABNORMALITY, CONSIDER LATERAL ISCHEMIA ABNORMAL ECG NO PREVIOUS TRACING DOCTOR: Enrrique Wright Interpretating Date/Time 06/26/2017 09:44:04
--- NOTE | 2017-06-26 10:07 | MB ---
cc: YAMEL MCCLELLAND DATE OF CONSULTATION 06/26/2017 REASON FOR CONSULTATION Abnormal troponin, paroxysmal atrial fibrillation. HISTORY OF PRESENT ILLNESS Extensive medical records were reviewed. The patient is a 72-year-old white male with a history of coronary artery disease, COPD, diabetes, hypertension, severe cardiomyopathy, peripheral vascular disease, paroxysmal atrial fibrillation who presented to the hospital with an approximately 90-minute history of fairly sudden onset of shortness of breath. Chest x-ray on admission suggested possible congestive heart failure and/or pneumonia. In the emergency department, he was also found to be in atrial fibrillation with rapid ventricular response. The patient states since coming into hospital, his dyspnea has considerably improved. He denies any recent chest pain, syncope, near-syncope, lightheadedness, palpitations, pedal edema, paroxysmal nocturnal dyspnea. He reports compliance with his medications. The patient states he had a couple of coronary stents placed last week at [facility] in [place]. PAST MEDICAL HISTORY 1. Coronary artery disease with heart catheterization 05/09/[address] Jonny Melchor showing minimal left main, 90% mid-LAD stenosis, 80% distal LAD disease, 99% proximal left circumflex, subtotally occluded proximal right coronary artery with [id number] collaterals. From what I can gather, he was referred for coronary artery bypass grafting, but due to high risk, he was transferred to [facility] where he apparently underwent placement of one or two stents last week. 2. Diabetes with complications of diabetic foot ulcers. 3. Hypertension 4. Severe cardiomyopathy with ejection fraction of 25% by echo 05/22/2017. 5. Peripheral vascular disease with angiography 05/09/2017 showing 90% left external iliac stenosis treated with angioplasty and high-grade left peroneal disease which was treated with CSI atherectomy and angioplasty. 6. Paroxysmal atrial fibrillation diagnosed 05/22/17. 7. History of skin cancer. PAST SURGICAL HISTORY Malignant melanoma removal from his cheek 03/24/2014. MEDICATIONS His cardiac medications at home: 1. Enalapril 20 mg daily. 2. Clopidogrel 75 mg daily. 3. Atorvastatin 80 mg q.h.s. 4. Aspirin 81 mg daily. 5. Amlodipine 5 mg daily. 6. Warfarin 5 mg daily. 7. Metoprolol succinate 150 mg daily. ALLERGIES ACETAMINOPHEN, CODEINE AND PROPOXYPHENE. FAMILY HISTORY Noncontributory SOCIAL HISTORY The patient quit smoking 05/05/2017. He denies alcohol abuse. REVIEW OF SYSTEMS As in the history of present illness, otherwise negative or noncontributory. He also denies headache, fevers, chills, weight loss, melena, dyspepsia, bright red blood per rectum. PHYSICAL EXAM On physical examination his blood pressure 141/66 with a pulse of 70, respirations 18. GENERAL: He is a well-developed, well-nourished white male in no acute distress. HEENT: On examination, jugular venous pressure is normal. Carotid pulses are 2+ bilaterally and without bruits. CHEST: Examination of the chest reveals diminished breath sounds at the bases with bibasilar crackles. CARDIAC: On cardiac examination, he has a regular rhythm and rate without S3, S4 or murmur. ABDOMEN: On abdominal examination, he has a soft, nontender abdomen. Bowel sounds are present. There is no definite hepatosplenomegaly. EXTREMITIES: Examination of extremities reveals trace pretibial edema. LABORATORY DATA Includes WBC 12.6, hemoglobin 13.0, platelets 469, potassium 3.9, BUN 16, creatinine 1.12, glucose 248, CK 86, troponin 0.32, INR 1.2. EKG from 06/26/2017 at 01:51 a.m. shows atrial fibrillation, septal and inferior infarcts age undetermined, lateral ST and T-wave abnormalities, consider ischemia. EKG from 06/26/2017 at 7:43 a.m. shows sinus rhythm, inferior and septal infarct age undetermined, anterolateral ST and T-wave abnormalities, consider ischemia. Chest x-ray shows lower lung consolidation, right greater than left. IMPRESSION Probable congestive heart failure, slightly abnormal troponin level, recurrent atrial fibrillation with a rapid ventricular response in a 72-year-old white male with a history of coronary disease, COPD, diabetes, hypertension, ejection fraction 25%, peripheral vascular disease. At this time, he is back in sinus rhythm. His chest x-ray suggests possibly pneumonia and/or congestive heart failure. Overall, I doubt the slightly elevated troponin level is due to acute coronary syndrome. CK is negative for myocardial infarction. Records from [facility] last week are currently not available. He apparently had placement of one or two coronary stents. He is also known to have severe multivessel coronary artery disease by cardiac catheterization last month. He has had no definite chest pain symptoms. The patient does report compliance with his medications. With respect to his atrial fibrillation, needless to say, his thromboembolic risk is very high. Currently his pro-time is subtherapeutic. RECOMMENDATIONS 1. We will try to obtain records from [facility] regarding what sort of coronary intervention was done last week; in the meantime, continue Plavix and baby aspirin. 2. Continue Warfarin to achieve an INR of 2-2.5; in the meantime, I would recommend Lovenox or heparin drip until his pro-time is therapeutic. 3. Optimize his heart failure regimen. 4. Agree with intravenous Lasix diuresis MD KARIS Harris/NILESH /9:43 AM /9:54 AM MTDJ Luis
[2017-06-26 13:27] LABS: HEMATOCRIT 32.6 % (39.0-51.0); HEMOGLOBIN 10.7 GM/DL (13.0-17.0); MEAN CORPUSCULAR HEMOGLOBIN 26.7 PG (27.0-34.0); PLATELET COUNT 346 TH/MM3 (150-450); RED BLOOD COUNT 4.02 MIL/MM3 (4.50-5.90); RED CELL DISTRIBUTION WIDTH 16.6 % (11.6-17.2); WHITE BLOOD COUNT 7.3 TH/MM3 (4.0-11.0)
[2017-06-26 14:10] LABS: TROPONIN I 0.55 NG/ML (0.02-0.05)
--- NOTE | 2017-06-26 14:58 | PD.WCN.NOT ---
Wound Consult Description: Received consult from Doctor Weiss for wound management of L ankle Communicated with: LAUREANO Davalos and Doctor Vincent Recommendation: 1.Please cleanse wound to L ankle with normal saline only and pat dry. Apply Santyl jose j thickness to wound bed only and cover with dry 4x4 gauze pads, secured with rolled gauze and tape. Please change dressing daily. 2. Apply skin prep to L great toe blood filled blister BID and leave open to air. Additional Information: Patient seen on [address] [place] [address] around 1200 for L ankle wound management. Removed gauze dressing in place to left ankle to reveal full thickness wound to L ankle. Wound presents with ~80% yellow adherent slough and ~20% pink tissue. Wound drainage is minimal and sero-sanguinous without odor. Periwound has slight erythema without induration. Wound measures 1.8 cm x 2cm x slough.Cleansed wound with normal saline and pat dry . Applied dry 4x4 gauze over wound bed and secured with rolled gauze and tape. Patient is also noted with purple blood filled blister to L great toe that measures 1cm x 1.6 cm. Applied skin prep to blister on L great toe and left open to air. Patient has a history of Diabetes and MRSA cellulitis. Patient states, "Well the wound first appeared like a snowflake." Patient is unable to give more history as to what caused wound. Kanchan Calderón [facility] Jun 26, 2017 14:58
--- NOTE | 2017-06-26 16:11 | ECHRPT ---
Indication: Heart failure, unspecified CONCLUSIONS Mildly dilated left ventricle. Wall thickness is normal. The left ventricular systolic function is severely reduced with an estimated ejection fraction of 30 %. Global hypokinesis. Moderate mitral annular calcification. Diffuse mild calcification of the aortic valve. Trileaflet aortic valve. No aortic stenosis. There is a small pericardial effusion present. No tamponade physiology is evident. BP: 141 / 66 HR: 71 Rhythm: Other MEASUREMENTS (Male / Female) Normal Values Technical Quality:Good 2D ECHO LV Diastolic Diameter PLAX 6.5 cm 4.2 - 5.9 / 3.9 - 5.3 cm LV Systolic Diameter PLAX 5.5 cm IVS Diastolic Thickness 1.2 cm 0.6 - 1.0 / 0.6 - 0.9 cm LVPW Diastolic Thickness 1.2 cm 0.6 - 1.0 / 0.6 - 0.9 cm LV Relative Wall Thickness 0.4 LVOT Diameter 2.1 cm M-MODE Aortic Root Diameter MM 3.2 cm LA Systolic Diameter MM 4.8 cm LA Ao Ratio MM 1.5 AV Cusp Separation MM 2.0 cm DOPPLER AV Peak Velocity 76.0 cm/s AV Peak Gradient 2.3 mmHg LVOT Peak Velocity 63.2 cm/s LVOT Peak Gradient 1.6 mmHg AV Area Cont Eq pk 2.9 cm LV E' Lateral Velocity 9.7 cm/s LV E' Septal Velocity 3.4 cm/s PV Peak Velocity 99.1 cm/s PV Peak Gradient 3.9 mmHg FINDINGS LEFT VENTRICLE Mildly dilated left ventricle. Wall thickness is normal. The left ventricular systolic function is severely reduced with an estimated ejection fraction of 30 %. Global hypokinesis. RIGHT VENTRICLE Normal right ventricular size and systolic function. LEFT ATRIUM The left atrial size is normal. RIGHT ATRIUM The right atrial size is normal. ATRIAL SEPTUM Normal atrial septal thickness without atrial level shunting by limited color doppler interrogation. AORTA The aortic root and proximal ascending aorta are normal in size on limited imaging. MITRAL VALVE Moderate mitral annular calcification. AORTIC VALVE Diffuse calcification of the aortic valve. Trileaflet aortic valve. No aortic stenosis. TRICUSPID VALVE Structurally normal tricuspid valve. No tricuspid valve stenosis or regurgitation. PULMONARY VALVE The pulmonary valve is not well visualized. VESSELS The inferior vena cava is normal in size. PERICARDIUM There is a small pericardial effusion present. No tamponade physiology is evident. Amauri Almanza MD (Electronically Signed) Final Date:26 June 2017 16:10
[2017-06-26] MEDS: RESP: ALBUTEROL 2.5 MG/IPRATROPIUM 0.5 MG NEB (PRN) NEB (16:59)
[2017-06-26] MEDS ORDERED: cloNIDine HCL 0.1 MG TAB PO PRN (18:00)
[2017-06-26] MEDS: ATORVASTATIN 80 MG TAB PO SCH (20:39)
[2017-06-26 21:00] LABS: TROPONIN I 0.42 NG/ML (0.02-0.05)
[2017-06-27] VITALS (25 sets, daily range): BP systolic 119–140; BP diastolic 57–65; PULSE 53–72; RESP 19–23; TEMP 97.6–98.7; O2SAT 93–100
[2017-06-27 02:19] LABS: AUTOMATED NEUTROPHIL # 4.4 TH/MM3 (1.8-7.7); BASOPHIL # 0.1 TH/MM3 (0-0.2); EOSINOPHIL # 0.1 TH/MM3 (0-0.4); EOSINOPHIL % 1.3 % (0.0-4.0); HEMATOCRIT 30.8 % (39.0-51.0); HEMOGLOBIN 10.1 GM/DL (13.0-17.0); LYMPHOCYTE # 1.4 TH/MM3 (1.0-4.8); MEAN CELL VOLUME 79.7 FL (80.0-100.0); MEAN CORPUSCULAR HEMOGLOBIN 26.2 PG (27.0-34.0); MEAN CORPUSCULAR HGB CONC 32.8 % (32.0-36.0); MONO % 10.6 % (0.0-8.0); MONOCYTE # 0.7 TH/MM3 (0-0.9); NEUT % 66.1 % (16.0-70.0); PLATELET COUNT 318 TH/MM3 (150-450); RED BLOOD COUNT 3.86 MIL/MM3 (4.50-5.90); RED CELL DISTRIBUTION WIDTH 16.8 % (11.6-17.2); WHITE BLOOD COUNT 6.6 TH/MM3 (4.0-11.0)
[2017-06-27] MEDS: HEPARIN-D5W 25,000 U/250 ML 250 ML IV PRN ×2 (02:39→19:34)
[2017-06-27] MEDS: NITROGLYCERIN 2% OINT 1 GM PACKET TOP SCH ×4 (02:40→14:00)
[2017-06-27 02:46] LABS: BICARBONATE 29.4 MEQ/L (21.0-32.0); CREATININE 0.83 MG/DL (0.60-1.30)
--- NOTE | 2017-06-27 07:38 | PD.CARD.PN ---
Subjective Subjective Remarks Denies dyspnea at rest. No CP, palpitations, dizziness, PND. Objective Medications Item Value Date Time Atorvastatin 80 mg 06/26/172099 Calcium HS/PO 06/26/172038 (Lipitor) Furosemide 40 mg 06/26/17 0900 (Lasix Inj) BID@/IVP 06/26/17 183 Amlodipine 5 mg 06/26/17 0900 Besylate DAILY/PO 06/26/17 08 (Norvasc) Clopidogrel 75 mg 06/26/17 0900 Bisulfate DAILY/PO 06/26/17 08 (Plavix) Enalapril Maleate 20 mg 06/26/17 0900 (Vasotec) DAILY/PO 06/26/17 08 Metoprolol 150 mg 06/26/17 0900 Succinate DAILY/PO 06/26/17 0838 (Toprol Xl) Nitroglycerin 1 inch 06/26/17 0800 (Nitroglycerin Q6H/TOP 06/27/17 0240 2% Oint) Heparin Sodium/ 250 ml @ 13 mls/hr 06/27/17 0315 Dextrose TITRATE PRN/IV Current Medications Medications (Trade) Dose Ordered Sig/Tatyana Route Start Time Stop Time Status Last Admin (Nitrostat Sl) 0.4 mg Q5M PRN SL 06/26/17 02:00 (NS Flush) 2 ml BID IV FLUSH 06/26/17 09:00 06/26/17 20:39 (NS Flush) 2 ml UNSCH PRN IV FLUSH 06/26/17 04:45 (Lasix Inj) 40 mg BID@ IVP 06/26/17 09:00 06/26/17 18:36 (Nitroglycerin 2% Oint) 1 inch Q6H TOP 06/26/17 08:00 06/27/17 02:40 (D50w (Vial) Inj) 50 ml UNSCH PRN IV PUSH 06/26/17 05:00 (Glucagon Inj) 1 mg UNSCH PRN OTHER 06/26/17 05:00 (NovoLOG SUPPLEMENTAL SCALE) 1 ACHS SLIDING SCALE SQ 06/26/17 08:00 06/26/17 20:46 (Norvasc) 5 mg DAILY PO 06/26/17 09:00 06/26/17 08:37 (Lipitor) 80 mg HS PO 06/26/17 21:00 06/26/17 20:39 (Plavix) 75 mg DAILY PO 06/26/17 09:00 06/26/17 08:37 (Vasotec) 20 mg DAILY PO 06/26/17 09:00 06/26/17 08:37 (Toprol Xl) 150 mg DAILY PO 06/26/17 09:00 06/26/17 08:38 (Duoneb Neb) 1 ampule Q4HR NEB PRN NEB 06/26/17 05:30 06/26/17 16:59 (Santyl Oint) 1 applic DAILY TOPICAL 06/27/17 09:00 (Catapres) 0.1 mg Q4H PRN PO 06/26/17 18:00 Heparin Sodium/ Dextrose 250 ml @ 13 mls/hr TITRATE PRN IV 06/27/17 03:15 Vital Signs / I&O Vital Signs Date Time Temp Pulse Resp B/P (MAP) Pulse Ox O2 Delivery O2 Flow Rate FiO2 06/27/17 06:00 59 06/27/17 04:00 54 06/27/17 04:00 98.0 54 19 140/65 (90) 98 06/27/17 03:16 100 BiPAP 06/27/17 03:15 100 45 06/27/17 02:00 53 06/27/17 00:04 100 BiPAP 06/27/17 00:01 100 45 06/27/17 00:00 59 06/27/17 00:00 97.6 59 20 136/63 (87) 96 06/26/17 22:18 100 45 06/26/17 22:00 60 06/26/17 21:10 100 Bi-Pap 45 06/26/17 21:08 100 45 06/26/17 21:07 93 Nasal Cannula 5.00 06/26/17 20:00 96 Nasal Cannula 4.00 Humidified 06/26/17 20:00 68 06/26/17 20:00 98.6 68 24 128/58 (81) 96 06/26/17 18:13 93 45 06/26/17 18:00 Bi-Pap 45 06/26/17 17:15 89 Venturi Mask 8.00 50 06/26/17 16:18 98.1 67 20 129/72 (91) 96 06/26/17 15:00 66 1/31/18 12:00 98.0 64 22 124/62 (82) 96 06/26/17 08:48 96 Nasal Cannula 4.00 06/26/17 08:00 98.0 70 17 145/70 (95) 96 06/26/17 08:00 95 Nasal Cannula 4.00 Humidified 06/26/17 08:00 70 I/O 06/26/17 06/26/17 06/26/17 06/27/17 06/27/17 06/27/17 07:00 15:00 23:00 07:00 15:00 23:00 Intake Total 0 ml 490 ml Output Total 500 ml 1000 ml Balance -500 ml 0 ml -510 ml Intake Oral 0 ml 240 ml IV Total 250 ml Output Urine Total 500 ml 1000 ml # Bowel Movements 1 Physical Exam GENERAL: Well developed, well nourished. No acute distress. HEENT: Jugular venous pressure is normal. CHEST: Lungs clear to anteriorly. CARDIAC: Regular rate and rhythm without S3, S4, or murmur. ABDOMEN: Soft, nontender, no hepatosplenomegaly. Bowel sounds present. EXTREMITIES: No clubbing, cyanosis. Trace pretibial edema. Laboratory Laboratory Tests Test 06/26/17 12:50 06/26/17 20:02 06/27/17 02:00 White Blood Count 7.3 TH/MM3 6.6 TH/MM3 Red Blood Count 4.02 MIL/MM3 3.86 MIL/MM3 Hemoglobin 10.7 GM/DL 10.1 GM/DL Hematocrit 32.6 % 30.8 % Mean Corpuscular Volume 81.0 FL 79.7 FL Mean Corpuscular Hemoglobin 26.7 PG 26.2 PG Mean Corpuscular Hemoglobin Concent 33.0 % 32.8 % Red Cell Distribution Width 16.6 % 16.8 % Platelet Count 346 TH/MM3 318 TH/MM3 Mean Platelet Volume 8.0 FL 8.0 FL Activated Partial Thromboplast Time 30.9 SEC 32.7 SEC 36.0 SEC Total Creatine Kinase 57 U/L 49 U/L Troponin I 0.55 NG/ML 0.42 NG/ML Neutrophils (%) (Auto) 66.1 % Lymphocytes (%) (Auto) 21.0 % Monocytes (%) (Auto) 10.6 % Eosinophils (%) (Auto) 1.3 % Basophils (%) (Auto) 1.0 % Neutrophils # (Auto) 4.4 TH/MM3 Lymphocytes # (Auto) 1.4 TH/MM3 Monocytes # (Auto) 0.7 TH/MM3 Eosinophils # (Auto) 0.1 TH/MM3 Basophils # (Auto) 0.1 TH/MM3 CBC Comment DIFF FINAL Differential Comment Blood Urea Nitrogen 19 MG/DL Creatinine 0.83 MG/DL Random Glucose 104 MG/DL Calcium Level 8.0 MG/DL Sodium Level 143 MEQ/L Potassium Level 3.7 MEQ/L Chloride Level 107 MEQ/L Carbon Dioxide Level 29.4 MEQ/L Anion Gap 7 MEQ/L Estimat Glomerular Filtration Rate 92 ML/MIN Assessment and Plan Problem List: (1) CAD (coronary artery disease) ICD Codes: I25.10 - Atherosclerotic heart disease of [place] coronary artery without angina pectoris Status: Chronic Plan: Stable overnight. No definite recent angina. Patient apparently s/p PCI 's at [facility] recently as CABG felt too high risk for his multivessel CAD. Slightly abnormal troponin levels possibly due to atrial fib recurrence. Rec continue medical therapy of his CAD, including Plavix and baby aspirin. Try to obtain [facility] records. (2) Paroxysmal atrial fibrillation ICD Codes: I48.0 - Paroxysmal atrial fibrillation Status: Chronic Plan: Remains in NSR. His thromboembolic risk is high. Rec anticoagulation therapy with Eliquis or Xarelto or if warfarin used, recommend heparin until INR therapeutic. (3) Ischemic cardiomyopathy ICD Codes: I25.5 - Ischemic cardiomyopathy Status: Chronic Plan: Symptomatically better. Possible CHF +/- pneumonia by CXR. Fair diuresis since admission. Rec continue IV Lasix diuresis, continue beta héctor , [place]-I. Consider ICD implant if EF still < 35% in 90 days. (4) Hypertension ICD Codes: I10 - Essential (primary) hypertension Status: Chronic Plan: Stable. Mostly normotensive. Code Status full code Discussed Condition With patient Problem Qualifiers (1) CAD (coronary artery disease): Qualified Codes: I25.10 - Atherosclerotic heart disease of [place] coronary artery without angina pectoris (2) Hypertension: Qualified Codes: I10 - Essential (primary) hypertension Amauri Almanza MD Jun 27, 2017 07:38
[2017-06-27] MEDS: INSULIN ASPART SUPPLEMENTAL SCALE SQ SCH ×4 (08:00→21:00)
[2017-06-27] MEDS: FUROSEMIDE 40 MG/4 ML VIAL IVP SCH ×2 (09:02→17:48)
[2017-06-27] MEDS: COLLAGENASE OINT 30 GM TUBE TOPICAL SCH (09:02)
[2017-06-27] MEDS: amLODIPine BESYLATE 5 MG TAB PO SCH (09:03)
[2017-06-27] MEDS: CLOPIDOGREL 75 MG TAB PO SCH (09:03)
[2017-06-27] MEDS: METOPROLOL SUCCINATE 50 MG EXTENDED RELEASE TAB PO SCH (09:04)
[2017-06-27] MEDS: ENALAPRIL MALEATE 10 MG TAB PO SCH (09:04)
[2017-06-27] MEDS: SODIUM CHLORIDE 0.9% FLUSH 10 ML FLUSH IV FLUSH SCH ×2 (09:04→21:00)
[2017-06-27] MEDS: RESP: IPRATROPIUM 0.5 MG/2.5 ML NEB NEB SCH ×2 (15:15→21:07)
[2017-06-27] MEDS: ASPIRIN EC 81 MG TABEC PO SCH (17:47)
[2017-06-27] MEDS: WARFARIN SOD 5 MG TAB PO SCH (17:47)
--- NOTE | 2017-06-27 17:47 | HHI.PR ---
Subjective Remarks Late entry, seen earlier this am, Had some sob throughout night requiring bipap Objective Vital Signs Date Time Temp Pulse Resp B/P (MAP) Pulse Ox O2 Delivery O2 Flow Rate FiO2 06/27/17 17:17 98.7 62 122/64 (83) 95 06/27/17 17:17 95 Nasal Cannula 4.00 06/27/17 15:16 94 Nasal Cannula 5.00 06/27/17 15:00 60 06/27/17 15:00 98.4 60 22 119/57 (77) 93 06/27/17 12:00 98.6 62 20 137/63 (87) 95 06/27/17 08:21 98.0 60 23 127/60 (82) 95 06/27/17 07:58 95 Nasal Cannula 5.00 06/27/17 07:30 97.8 67 19 122/57 (78) 98 06/27/17 07:30 100 Bi-Pap 45 06/27/17 07:00 72 06/27/17 06:00 59 06/27/17 04:00 54 06/27/17 04:00 98.0 54 19 140/65 (90) 98 06/27/17 03:16 100 BiPAP 06/27/17 03:15 100 45 06/27/17 02:00 53 06/27/17 00:04 100 BiPAP 06/27/17 00:01 100 45 06/27/17 00:00 59 06/27/17 00:00 97.6 59 20 136/63 (87) 96 06/26/17 22:18 100 45 06/26/17 22:00 60 06/26/17 21:10 100 Bi-Pap 45 06/26/17 21:08 100 45 06/26/17 21:07 93 Nasal Cannula 5.00 06/26/17 20:00 96 Nasal Cannula 4.00 Humidified 06/26/17 20:00 68 06/26/17 20:00 98.6 68 24 128/58 (81) 96 06/26/17 18:13 93 45 06/26/17 18:00 Bi-Pap 45 I/O 06/26/17 06/26/17 06/26/17 06/27/17 06/27/17 06/27/17 07:00 15:00 23:00 07:00 15:00 23:00 Intake Total 0 ml 490 ml 720 ml Output Total 500 ml 1000 ml 1500 ml Balance -500 ml 0 ml -510 ml -780 ml Intake Oral 0 ml 240 ml 720 ml IV Total 250 ml Output Urine Total 500 ml 1000 ml 1500 ml # Bowel Movements 1 1 Result Diagram: 06/27/17 0200 06/27/17 0200 Imaging Last 48 hours Impressions Chest X-Ray 06/26/17 0155 Signed Impressions: Service Date/Time: Monday, June 26, 2017 02:05 - CONCLUSION: Lower lung consolidation, right greater than left. Differential diagnosis includes pneumonia and congestive heart failure. Small effusions. Theo Allen MD Objective Remarks GENERAL: well nourished found in bed in no apparent distress HEAD: Atraumatic. Normocephalic. No temporal or scalp tenderness. EYES: Pupils equal round and reactive. Extraocular motions intact. No scleral icterus. No injection or drainage. ENT: Nose without bleeding, purulent drainage or septal hematoma. Throat without erythema, tonsillar hypertrophy or exudate. Uvula midline. Airway patent. NECK: Trachea midline. No JVD or lymphadenopathy. Supple, nontender, no meningeal signs. CARDIOVASCULAR: Regular rate and rhythm RESPIRATORY: Clear,b/l no wheezes, rales, or rhonchi. GASTROINTESTINAL: Abdomen soft, non-tender, nondistended. No hepato-splenomegaly , or palpable masses. No guarding. MUSCULOSKELETAL:No joint tenderness, effusion, or edema noted. No calf tenderness NEUROLOGICAL: Awake and alert. Cranial nerves II through XII intact. Motor and sensory grossly within normal limits. Normal speech. Wound to Left foot, dressing intact Medications and IVs Current Medications Medications (Trade) Dose Ordered Sig/Tatyana Route Start Time Stop Time Status Last Admin (Nitrostat Sl) 0.4 mg Q5M PRN SL 06/26/17 02:00 (NS Flush) 2 ml BID IV FLUSH 06/26/17 09:00 06/27/17 09:04 (NS Flush) 2 ml UNSCH PRN IV FLUSH 06/26/17 04:45 (Lasix Inj) 40 mg BID@ IVP 06/26/17 09:00 06/27/17 09:02 (D50w (Vial) Inj) 50 ml UNSCH PRN IV PUSH 06/26/17 05:00 (Glucagon Inj) 1 mg UNSCH PRN OTHER 06/26/17 05:00 (NovoLOG SUPPLEMENTAL SCALE) 1 ACHS SLIDING SCALE SQ 06/26/17 08:00 06/27/17 12:00 (Norvasc) 5 mg DAILY PO 06/26/17 09:00 06/27/17 09:03 (Lipitor) 80 mg HS PO 06/26/17 21:00 06/26/17 20:39 (Plavix) 75 mg DAILY PO 06/26/17 09:00 06/27/17 09:03 (Vasotec) 20 mg DAILY PO 06/26/17 09:00 06/27/17 09:04 (Toprol Xl) 150 mg DAILY PO 06/26/17 09:00 06/27/17 09:04 (Duoneb Neb) 1 ampule Q4HR NEB PRN NEB 06/26/17 05:30 06/26/17 16:59 (Santyl Oint) 1 applic DAILY TOPICAL 06/27/17 09:00 06/27/17 09:02 (Catapres) 0.1 mg Q4H PRN PO 06/26/17 18:00 Heparin Sodium/ Dextrose 250 ml @ 13 mls/hr TITRATE PRN IV 06/27/17 03:15 (Atrovent Neb) 0.5 mg Q6HR NEB NEB 06/27/17 16:00 06/27/17 15:15 (Ecotrin Ec) 81 mg DAILY PO 06/27/17 17:00 UNV (Coumadin) 5 mg DAILY@1600 PO 06/27/17 17:00 UNV Assessment and Plan Problem List: (1) Hypoxemia ICD Codes: R09.02 - Hypoxemia Status: Acute Plan: Pulmonary consult, Keep sat's >92% (2) Acute exacerbation of congestive heart failure ICD Codes: I50.9 - Heart failure, unspecified Status: Acute Plan: Cardiology following, Continue to Diuresis, Nebs, BB (3) Ischemic cardiomyopathy ICD Codes: I25.5 - Ischemic cardiomyopathy Status: Chronic Plan: Cardiology following, Echocardiogram shows EF 30%, on 06/26/17 Continue use of BB, Rivera inhibitor (4) Paroxysmal atrial fibrillation ICD Codes: I48.0 - Paroxysmal atrial fibrillation Status: Chronic Plan: Cardiology following, NSR currently, on Heparin, will restart Coumadin D/ C Heparin when INR therapeutic.. (5) Hypertension ICD Codes: I10 - Essential (primary) hypertension Status: Chronic Plan: Currently Controlled, cont to monitor (6) Diabetes ICD Codes: E11.9 - Type 2 diabetes mellitus without complications Plan: Monitor blood sugars, [place] coverage Check HGB A1c in am Problem Qualifiers (1) Acute exacerbation of congestive heart failure: Qualified Codes: I50.9 - Heart failure, unspecified (2) Hypertension: Qualified Codes: I10 - Essential (primary) hypertension (3) Diabetes: Daniela Barrios Jun 27, 2017 17:47
--- NOTE | 2017-06-27 18:37 | MB ---
cc: Georgie ZAVALA DATE OF CONSULTATION 06/27/17 HISTORY OF PRESENT ILLNESS Mr. Torres is a 72-year-old white male with severe heart disease as well as diabetes, hypertension, cardiomyopathy with an ejection fraction recently documented in the 25-30% range who was transferred to [facility] after hospitalization here last month for possible bypass. He was not felt to be a candidate but did undergo two stents. He returned back to this area, was in rehab for a period of time and then went home for about a week. He came in yesterday with increasing shortness of breath. On admission, he was placed on BiPap with oxygen and diuresed because his chest x-ray revealed probable CHF and his BNP was 1500. He has improved overnight and is now on nasal cannula. Dr. Almanza has seen him and is reevaluating his cardiac status. The patient smoked up to the time of admission in April but has not smoked since then. He may have COPD but has not been on any type of regular therapy for it and was not on oxygen. He denies cough or purulent sputum. He has had no fever. No recent history of pneumonia. PAST MEDICAL HISTORY 1. Malignant melanoma removed from his face in 2013, 2. Diabetes with foot ulcers 3. Hypertension, 4. Paroxysmal atrial fibrillation. MEDICATIONS Reviewed in the EMR. The patient has been on Warfarin. SOCIAL HISTORY He went home for a short interval, lives alone, did not smoke and does not drink alcohol. ALLERGIES Listed. PHYSICAL EXAMINATION GENERAL: Patient is elderly, but in no distress at rest on nasal oxygen. VITAL SIGNS: Blood pressure is 140/70, pulse is 80, respirations are 16-20, O2 sat 95%. HEENT: Sclerae anicteric. Mucous membranes are moist. NECK: Neck veins are not distended. CHEST: Somewhat diminished at the bases but no wheezes or congestion, faint rales. HEART: Soft systolic murmur. No audible S3. EXTREMITIES: Minimal ankle edema, chronic venostasis changes. No cyanosis. INCISION AND DRAINAGE Chest x-ray - Bibasilar densities, possible small effusions, probable CHF. LABORATORY DATA Arterial blood gas on BiPap yesterday - his pO2 is 112, pH 7.4, pCO2 37. White count 6600, hemoglobins 10. DISCUSSION Mr. Torres presents probably with CHF, very significant cardiac history. No current signs or symptoms to suggest pneumonia. He has been a lifelong smoker, probably does have underlying chronic obstructive pulmonary disease. I will start him on Atrovent nebulized treatments along with his oxygen to clear secretions and bronchodilate. If he produces a sputum, we will analyze that with culture. Further diagnostic and/or therapeutic intervention will depend on his response and ongoing clinical course. R. MD FLORENCE Altman/ /3:42 PM /6:01 PM
[2017-06-27] MEDS: ATORVASTATIN 80 MG TAB PO SCH (23:00)
[2017-06-28] VITALS (26 sets, daily range): BP systolic 116–136; BP diastolic 60–70; PULSE 50–64; RESP 16–20; TEMP 98.1–98.6; O2SAT 93–100
[2017-06-28] MEDS: RESP: IPRATROPIUM 0.5 MG/2.5 ML NEB NEB SCH ×2 (04:07→08:51)
[2017-06-28] MEDS: HEPARIN-D5W 25,000 U/250 ML 250 ML IV PRN ×2 (07:00→18:10)
[2017-06-28 07:27] LABS: BICARBONATE 29.8 MEQ/L (21.0-32.0); BLOOD UREA NITROGEN 26 MG/DL (7-18); CALCIUM 8.8 MG/DL (8.5-10.1); CHLORIDE 102 MEQ/L (98-107); CREATININE 1.02 MG/DL (0.60-1.30); GLOMERULAR FILTRATION RATE 72 ML/MIN (>89); GLUCOSE,RANDOM 151 MG/DL (74-106); SODIUM (NA) 138 MEQ/L (136-145)
--- NOTE | 2017-06-28 08:20 | HHI.PR ---
Subjective Remarks No complaints this am, No CP, SOB, Sats maintained on 2L NC Objective Vital Signs Date Time Temp Pulse Resp B/P (MAP) Pulse Ox O2 Delivery O2 Flow Rate FiO2 06/28/17 05:00 50 06/28/17 04:07 98 45 06/28/17 04:00 54 06/28/17 03:00 98.2 53 17 118/64 (82) 99 06/28/17 03:00 57 06/28/17 02:48 99 Nasal Cannula 4.00 06/28/17 02:00 54 06/28/17 01:00 58 06/28/17 00:00 56 06/27/17 23:00 98.2 57 130/64 (86) 99 06/27/17 23:00 56 06/27/17 22:59 99 45 06/27/17 22:00 64 06/27/17 21:11 95 Nasal Cannula 3.00 06/27/17 21:00 62 06/27/17 20:30 95 Nasal Cannula 4.00 06/27/17 20:00 98.3 64 122/64 (83) 95 06/27/17 20:00 62 06/27/17 19:00 66 06/27/17 18:07 64 06/27/17 17:38 61 06/27/17 17:17 98.7 62 122/64 (83) 95 06/27/17 17:17 95 Nasal Cannula 4.00 06/27/17 15:16 94 Nasal Cannula 5.00 06/27/17 15:00 60 06/27/17 15:00 98.4 60 22 119/57 (77) 93 06/27/17 12:00 98.6 62 20 137/63 (87) 95 06/27/17 08:21 98.0 60 23 127/60 (82) 95 I/O 06/27/17 06/27/17 06/27/17 06/28/17 06/28/17 06/28/17 07:00 15:00 23:00 07:00 15:00 23:00 Intake Total 490 ml 720 ml 240 ml 648 ml Output Total 1000 ml 1500 ml 400 ml 900 ml Balance -510 ml -780 ml -160 ml -252 ml Intake Oral 240 ml 720 ml 240 ml 480 ml IV Total 250 ml 168 ml Output Urine Total 1000 ml 1500 ml 400 ml 900 ml # Bowel Movements 1 1 0 Result Diagram: 06/27/17 0200 06/28/17 0612 Objective Remarks GENERAL: well nourished found in bed in no apparent distress HEAD: Atraumatic. Normocephalic. No temporal or scalp tenderness. EYES: Pupils equal round and reactive. Extraocular motions intact. No scleral icterus. No injection or drainage. ENT: Nose without bleeding, purulent drainage or septal hematoma. Throat without erythema, tonsillar hypertrophy or exudate. Uvula midline. Airway patent. NECK: Trachea midline. No JVD or lymphadenopathy. Supple, nontender, no meningeal signs. CARDIOVASCULAR: Regular rate and rhythm RESPIRATORY: Clear,b/l no wheezes, rales, or rhonchi. GASTROINTESTINAL: Abdomen soft, non-tender, nondistended. No hepato-splenomegaly , or palpable masses. No guarding. MUSCULOSKELETAL:No joint tenderness, effusion, or edema noted. No calf tenderness NEUROLOGICAL: Awake and alert. Cranial nerves II through XII intact. Motor and sensory grossly within normal limits. Normal speech. Wound to Left foot, dressing intact Assessment and Plan Problem List: (1) Hypoxemia ICD Codes: R09.02 - Hypoxemia Status: Acute Plan: Seen by pulmonaryCheikh q6, Keep sat's >92% (2) Acute exacerbation of congestive heart failure ICD Codes: I50.9 - Heart failure, unspecified Status: Acute Plan: Cardiology following, Continue to Diuresis, Nebs, BB (3) Ischemic cardiomyopathy ICD Codes: I25.5 - Ischemic cardiomyopathy Status: Chronic Plan: Cardiology following, Echocardiogram shows EF 30%, on 06/26/17 Continue use of BB, Rivera inhibitor (4) Paroxysmal atrial fibrillation ICD Codes: I48.0 - Paroxysmal atrial fibrillation Status: Chronic Plan: Cardiology following, NSR currently, on Heparin, will restart Coumadin D/ C Heparin when INR therapeutic (5) Diabetes ICD Codes: E11.9 - Type 2 diabetes mellitus without complications Status: Chronic Plan: Monitor blood sugars, [place] coverage Check HGB A1c pending (6) Hypertension ICD Codes: I10 - Essential (primary) hypertension Status: Chronic Plan: Currently Controlled, cont to monitor Problem Qualifiers (1) Acute exacerbation of congestive heart failure: Qualified Codes: I50.9 - Heart failure, unspecified (2) Diabetes: (3) Hypertension: Qualified Codes: I10 - Essential (primary) hypertension Daniela Barrios Jun 28, 2017 08:20
[2017-06-28 09:09] LABS: INTERNATIONAL NORMALIZED RATIO 1.2 RATIO
--- NOTE | 2017-06-28 09:23 | PD.CARD.PN ---
Subjective Subjective Remarks Denies dyspnea. No CP, palpitations, dizziness, PND. Objective Medications Item Value Date Time Aspirin 81 mg 06/27/171744 (Ecotrin Ec) DAILY/PO 06/27/171746 Warfarin Sodium 5 mg 06/27/17 174 (Coumadin) DAILY@1600/PO 06/27/17 174 Heparin Sodium/ 250 ml @ 13 mls/hr 06/27/17 0315 Dextrose TITRATE PRN/IV Atorvastatin 80 mg 06/26/17 2100 Calcium HS/PO 06/27/17 2300 (Lipitor) Furosemide 40 mg 06/26/17 0900 (Lasix Inj) BID@/IVP 06/27/17 174 Amlodipine 5 mg 06/26/17 0900 Besylate DAILY/PO 06/27/17 09 (Norvasc) Clopidogrel 75 mg 06/26/17 0900 Bisulfate DAILY/PO 06/27/17 09 (Plavix) Enalapril Maleate 20 mg 06/26/17 0900 (Vasotec) DAILY/PO 06/27/17 09 Metoprolol 150 mg 06/26/17 0900 Succinate DAILY/PO 06/27/17 09 (Toprol Xl) Current Medications Medications (Trade) Dose Ordered Sig/Tatyana Route Start Time Stop Time Status Last Admin (Nitrostat Sl) 0.4 mg Q5M PRN SL 06/26/17 02:00 (NS Flush) 2 ml BID IV FLUSH 06/26/17 09:00 06/27/17 09:04 (NS Flush) 2 ml UNSCH PRN IV FLUSH 06/26/17 04:45 (Lasix Inj) 40 mg BID@ IVP 06/26/17 09:00 06/27/17 17:48 (D50w (Vial) Inj) 50 ml UNSCH PRN IV PUSH 06/26/17 05:00 (Glucagon Inj) 1 mg UNSCH PRN OTHER 06/26/17 05:00 (NovoLOG SUPPLEMENTAL SCALE) 1 ACHS SLIDING SCALE SQ 06/26/17 08:00 06/27/17 17:46 (Norvasc) 5 mg DAILY PO 06/26/17 09:00 06/27/17 09:03 (Lipitor) 80 mg HS PO 06/26/17 21:00 06/27/17 23:00 (Plavix) 75 mg DAILY PO 06/26/17 09:00 06/27/17 09:03 (Vasotec) 20 mg DAILY PO 06/26/17 09:00 06/27/17 09:04 (Toprol Xl) 150 mg DAILY PO 06/26/17 09:00 06/27/17 09:04 (Duoneb Neb) 1 ampule Q4HR NEB PRN NEB 06/26/17 05:30 06/26/17 16:59 (Santyl Oint) 1 applic DAILY TOPICAL 06/27/17 09:00 06/27/17 09:02 (Catapres) 0.1 mg Q4H PRN PO 06/26/17 18:00 Heparin Sodium/ Dextrose 250 ml @ 13 mls/hr TITRATE PRN IV 06/27/17 03:15 (Atrovent Neb) 0.5 mg Q6HR NEB NEB 06/27/17 16:00 06/28/17 08:51 (Ecotrin Ec) 81 mg DAILY PO 06/27/17 17:45 06/27/17 17:47 (Coumadin) 5 mg DAILY@1600 PO 06/27/17 17:45 06/27/17 17:47 Vital Signs / I&O Vital Signs Date Time Temp Pulse Resp B/P (MAP) Pulse Ox O2 Delivery O2 Flow Rate FiO2 06/28/17 05:00 50 06/28/17 04:07 98 45 06/28/17 04:00 54 06/28/17 03:00 98.2 53 17 118/64 (82) 99 06/28/17 03:00 57 06/28/17 02:48 99 Nasal Cannula 4.00 06/28/17 02:00 54 06/28/17 01:00 58 06/28/17 00:00 56 06/27/17 23:00 98.2 57 130/64 (86) 99 06/27/17 23:00 56 06/27/17 22:59 99 45 06/27/17 22:00 64 06/27/17 21:11 95 Nasal Cannula 3.00 06/27/17 21:00 62 06/27/17 20:30 95 Nasal Cannula 4.00 06/27/17 20:00 98.3 64 122/64 (83) 95 06/27/17 20:00 62 06/27/17 19:00 66 06/27/17 18:07 64 06/27/17 17:38 61 06/27/17 17:17 98.7 62 122/64 (83) 95 06/27/17 17:17 95 Nasal Cannula 4.00 06/27/17 15:16 94 Nasal Cannula 5.00 06/27/17 15:00 60 06/27/17 15:00 98.4 60 22 119/57 (77) 93 06/27/17 12:00 98.6 62 20 137/63 (87) 95 I/O 06/27/17 06/27/17 06/27/17 06/28/17 06/28/17 06/28/17 07:00 15:00 23:00 07:00 15:00 23:00 Intake Total 490 ml 720 ml 240 ml 648 ml Output Total 1000 ml 1500 ml 400 ml 900 ml Balance -510 ml -780 ml -160 ml -252 ml Intake Oral 240 ml 720 ml 240 ml 480 ml IV Total 250 ml 168 ml Output Urine Total 1000 ml 1500 ml 400 ml 900 ml # Bowel Movements 1 1 0 Physical Exam GENERAL: Well developed, well nourished. No acute distress. HEENT: Jugular venous pressure is normal. CHEST: Few bibasilar crackles. CARDIAC: Regular rate and rhythm without S3, S4, or murmur. ABDOMEN: Soft, nontender, no hepatosplenomegaly. Bowel sounds present. EXTREMITIES: No clubbing, cyanosis, edema. Laboratory Laboratory Tests Test 06/27/17 09:50 06/27/17 21:31 06/28/17 06:12 Activated Partial Thromboplast Time 38.9 SEC 35.9 SEC 48.3 SEC Prothrombin Time 12.0 SEC Prothromb Time International Ratio 1.2 RATIO Blood Urea Nitrogen 26 MG/DL Creatinine 1.02 MG/DL Random Glucose 151 MG/DL Calcium Level 8.8 MG/DL Sodium Level 138 MEQ/L Potassium Level 3.8 MEQ/L Chloride Level 102 MEQ/L Carbon Dioxide Level 29.8 MEQ/L Anion Gap 6 MEQ/L Estimat Glomerular Filtration Rate 72 ML/MIN Assessment and Plan Problem List: (1) CAD (coronary artery disease) ICD Codes: I25.10 - Atherosclerotic heart disease of [place] coronary artery without angina pectoris Status: Chronic Plan: Stable overnight. No definite recent angina. Patient apparently s/p PCI 's at [facility] recently as CABG felt too high risk for his multivessel CAD. Slightly abnormal troponin levels possibly due to atrial fib recurrence. Rec continue medical therapy of his CAD, including Plavix and baby aspirin. Trying to obtain [facility] records. (2) Paroxysmal atrial fibrillation ICD Codes: I48.0 - Paroxysmal atrial fibrillation Status: Chronic Plan: Remains in NSR. His thromboembolic risk is high. Rec anticoagulation therapy with Eliquis or Xarelto or if warfarin used, recommend heparin until INR therapeutic. (3) Ischemic cardiomyopathy ICD Codes: I25.5 - Ischemic cardiomyopathy Status: Chronic Plan: Symptomatically better. Possible CHF +/- pneumonia by CXR. Good diuresis past 24 hours. Rec continue IV Lasix diuresis, continue beta héctor, [place]-I. Consider ICD implant if EF still < 35% in 90 days. (4) Hypertension ICD Codes: I10 - Essential (primary) hypertension Status: Chronic Plan: Stable. Mostly normotensive. Code Status full code Discussed Condition With patient Problem Qualifiers (1) CAD (coronary artery disease): Qualified Codes: I25.10 - Atherosclerotic heart disease of [place] coronary artery without angina pectoris (2) Hypertension: Qualified Codes: I10 - Essential (primary) hypertension Amauri Almanza MD Jun 28, 2017 09:23
[2017-06-28] MEDS ORDERED: METOLAZONE 5 MG TAB PO ONE (09:30)
[2017-06-28] MEDS: amLODIPine BESYLATE 5 MG TAB PO SCH (10:55)
[2017-06-28] MEDS: ENALAPRIL MALEATE 10 MG TAB PO SCH (10:55)
[2017-06-28] MEDS: CLOPIDOGREL 75 MG TAB PO SCH (10:55)
[2017-06-28] MEDS: FUROSEMIDE 40 MG/4 ML VIAL IVP SCH ×2 (10:55→18:07)
[2017-06-28] MEDS: METOPROLOL SUCCINATE 50 MG EXTENDED RELEASE TAB PO SCH (10:55)
[2017-06-28] MEDS: ASPIRIN EC 81 MG TABEC PO SCH (10:56)
[2017-06-28] MEDS: SODIUM CHLORIDE 0.9% FLUSH 10 ML FLUSH IV FLUSH SCH ×2 (10:56→20:32)
[2017-06-28] MEDS: COLLAGENASE OINT 30 GM TUBE TOPICAL SCH (11:05)
[2017-06-28] MEDS: INSULIN ASPART SUPPLEMENTAL SCALE SQ SCH ×3 (13:50→20:55)
[2017-06-28 15:11] LABS: HEMOGLOBIN A1C 6.8 % (4.3-6.0)
[2017-06-28] MEDS: RESP: ALBUTEROL 2.5 MG/IPRATROPIUM 0.5 MG NEB (PRN) NEB ×2 (15:36→19:26)
[2017-06-28] MEDS: WARFARIN SOD 5 MG TAB PO SCH (16:38)
[2017-06-28] MEDS: ATORVASTATIN 80 MG TAB PO SCH (20:32)
[2017-06-29] VITALS (21 sets, daily range): BP systolic 120–132; BP diastolic 51–70; PULSE 51–60; RESP 18–20; TEMP 97.8–98.3; O2SAT 94–98
[2017-06-29 05:58] LABS: HEMATOCRIT 33.2 % (39.0-51.0); HEMOGLOBIN 11.2 GM/DL (13.0-17.0); MEAN CORPUSCULAR HEMOGLOBIN 26.2 PG (27.0-34.0); MEAN CORPUSCULAR HGB CONC 33.6 % (32.0-36.0); MEAN PLATELET VOLUME 8.3 FL (7.0-11.0); PLATELET COUNT 271 TH/MM3 (150-450); RED BLOOD COUNT 4.26 MIL/MM3 (4.50-5.90); RED CELL DISTRIBUTION WIDTH 16.6 % (11.6-17.2); WHITE BLOOD COUNT 7.3 TH/MM3 (4.0-11.0)
[2017-06-29 06:21] LABS: INTERNATIONAL NORMALIZED RATIO 1.2 RATIO; PROTHROMBIN TIME - PATIENT 12.6 SEC (9.8-11.6)
[2017-06-29] MEDS: FUROSEMIDE 40 MG/4 ML VIAL IVP SCH (09:06)
[2017-06-29] MEDS: ENALAPRIL MALEATE 10 MG TAB PO SCH (09:06)
[2017-06-29] MEDS: METOPROLOL SUCCINATE 50 MG EXTENDED RELEASE TAB PO SCH (09:06)
[2017-06-29] MEDS: amLODIPine BESYLATE 5 MG TAB PO SCH (09:06)
[2017-06-29] MEDS: SODIUM CHLORIDE 0.9% FLUSH 10 ML FLUSH IV FLUSH SCH ×2 (09:07→19:43)
[2017-06-29] MEDS: CLOPIDOGREL 75 MG TAB PO SCH (09:07)
[2017-06-29] MEDS: ASPIRIN EC 81 MG TABEC PO SCH (09:07)
[2017-06-29] MEDS: COLLAGENASE OINT 30 GM TUBE TOPICAL SCH (09:08)
[2017-06-29] MEDS: INSULIN ASPART SUPPLEMENTAL SCALE SQ SCH ×4 (09:08→19:58)
--- NOTE | 2017-06-29 09:20 | PD.CARD.PN ---
Subjective Subjective Remarks Denies dyspnea, CP, palpitations, dizziness, PND. Slept well. Objective Medications Item Value Date Time Aspirin 81 mg 06/27/17 174 (Ecotrin Ec) DAILY/PO 06/29/17 09 Warfarin Sodium 5 mg 06/27/17 174 (Coumadin) DAILY@1600/PO 06/28/17 1638 Heparin Sodium/ 250 ml @ 13 mls/hr 06/27/17 0315 Dextrose TITRATE PRN/IV 06/28/17 181 Atorvastatin 80 mg 06/26/17 2100 Calcium HS/PO 06/28/172031 (Lipitor) Amlodipine 5 mg 06/26/17 0900 Besylate DAILY/PO 06/29/17905 (Norvasc) Furosemide 40 mg 06/26/17 09 (Lasix Inj) BID@/IVP 06/29/17 09 Clopidogrel 75 mg 06/26/17 0900 Bisulfate DAILY/PO 06/29/17906 (Plavix) Enalapril Maleate 20 mg 06/26/17 09 (Vasotec) DAILY/PO 06/29/17905 Metoprolol 150 mg 06/26/1700 Succinate DAILY/PO 06/29/17905 (Toprol Xl) Current Medications Medications (Trade) Dose Ordered Sig/Tatyana Route Start Time Stop Time Status Last Admin (Nitrostat Sl) 0.4 mg Q5M PRN SL 06/26/17 02:00 (NS Flush) 2 ml BID IV FLUSH 06/26/17 09:00 06/29/17 09:07 (NS Flush) 2 ml UNSCH PRN IV FLUSH 06/26/17 04:45 (Lasix Inj) 40 mg BID@ IVP 06/26/17 09:00 06/29/17 09:06 (D50w (Vial) Inj) 50 ml UNSCH PRN IV PUSH 06/26/17 05:00 (Glucagon Inj) 1 mg UNSCH PRN OTHER 06/26/17 05:00 (NovoLOG SUPPLEMENTAL SCALE) 1 ACHS SLIDING SCALE SQ 06/26/17 08:00 06/29/17 09:08 (Norvasc) 5 mg DAILY PO 06/26/17 09:00 06/29/17 09:06 (Lipitor) 80 mg HS PO 06/26/17 21:00 06/28/17 20:32 (Plavix) 75 mg DAILY PO 06/26/17 09:00 06/29/17 09:07 (Vasotec) 20 mg DAILY PO 06/26/17 09:00 06/29/17 09:06 (Toprol Xl) 150 mg DAILY PO 06/26/17 09:00 06/29/17 09:06 (Duoneb Neb) 1 ampule Q4HR NEB PRN NEB 06/26/17 05:30 06/28/17 19:26 (Santyl Oint) 1 applic DAILY TOPICAL 06/27/17 09:00 06/29/17 09:08 (Catapres) 0.1 mg Q4H PRN PO 06/26/17 18:00 Heparin Sodium/ Dextrose 250 ml @ 13 mls/hr TITRATE PRN IV 06/27/17 03:15 06/28/17 18:10 (Ecotrin Ec) 81 mg DAILY PO 06/27/17 17:45 06/29/17 09:07 (Coumadin) 5 mg DAILY@1600 PO 06/27/17 17:45 06/28/17 16:38 Vital Signs / I&O Vital Signs Date Time Temp Pulse Resp B/P (MAP) Pulse Ox O2 Delivery O2 Flow Rate FiO2 06/29/17 06:00 58 06/29/17 05:00 56 06/29/17 04:08 95 06/29/17 04:00 98.3 57 18 120/51 (74) 98 06/29/17 04:00 57 06/29/17 04:00 Bi-Pap 06/29/17 03:00 58 06/29/17 02:00 59 06/29/17 01:00 56 06/29/17 00:00 98.0 51 18 129/56 (80) 94 06/29/17 00:00 Nasal Cannula 4.00 06/29/17 00:00 51 06/28/17 23:57 97 45 06/28/17 23:00 56 06/28/17 22:00 59 06/28/17 21:00 56 06/28/17 20:00 Nasal Cannula 4.00 06/28/17 20:00 57 06/28/17 20:00 98.1 57 20 116/60 (78) 93 06/28/17 19:27 96 21 06/28/17 18:00 62 06/28/17 17:00 50 06/28/17 16:00 58 06/28/17 15:00 56 06/28/17 15:00 98.4 57 20 131/70 (90) 100 06/28/17 14:00 56 06/28/17 13:00 58 06/28/17 12:00 58 06/28/17 11:00 58 06/28/17 11:00 98.6 62 16 136/69 (91) 97 06/28/17 10:00 64 I/O 06/28/17 06/28/17 06/28/17 06/29/17 06/29/17 06/29/17 07:00 15:00 23:00 07:00 15:00 23:00 Intake Total 648 ml 0 ml 970 ml 880 ml Output Total 900 ml 1800 ml 2000 ml Balance -252 ml 0 ml -830 ml -1120 ml Intake Oral 480 ml 720 ml 720 ml IV Total 168 ml 0 ml 250 ml 160 ml Output Urine Total 900 ml 1800 ml 2000 ml # Bowel Movements 0 0 Physical Exam GENERAL: Well developed, well nourished. No acute distress. HEENT: Jugular venous pressure is normal. CHEST: Lungs clear to auscultation. CARDIAC: Regular rate and rhythm without S3, S4, or murmur. ABDOMEN: Soft, nontender, no hepatosplenomegaly. Bowel sounds present. EXTREMITIES: No clubbing, cyanosis, edema. Laboratory Laboratory Tests Test 06/28/17 15:09 06/28/17 23:27 06/29/17 05:05 Activated Partial Thromboplast Time 25.4 SEC 40.3 SEC 49.3 SEC White Blood Count 7.3 TH/MM3 Red Blood Count 4.26 MIL/MM3 Hemoglobin 11.2 GM/DL Hematocrit 33.2 % Mean Corpuscular Volume 78.0 FL Mean Corpuscular Hemoglobin 26.2 PG Mean Corpuscular Hemoglobin Concent 33.6 % Red Cell Distribution Width 16.6 % Platelet Count 271 TH/MM3 Mean Platelet Volume 8.3 FL Prothrombin Time 12.6 SEC Prothromb Time International Ratio 1.2 RATIO Assessment and Plan Problem List: (1) CAD (coronary artery disease) ICD Codes: I25.10 - Atherosclerotic heart disease of [place] coronary artery without angina pectoris Status: Chronic Plan: Stable CAD status. No definite recent angina. Patient apparently s/p PCI's at [facility] recently as CABG felt too high risk for his multivessel CAD. Slightly abnormal troponin levels possibly due to atrial fib recurrence. Rec continue medical therapy of his CAD, including Plavix and baby aspirin. Trying to obtain [facility] records. (2) Paroxysmal atrial fibrillation ICD Codes: I48.0 - Paroxysmal atrial fibrillation Status: Chronic Plan: Remains in NSR. His thromboembolic risk is high. Rec heparin drip until INR therapeutic. (3) Ischemic cardiomyopathy ICD Codes: I25.5 - Ischemic cardiomyopathy Status: Chronic Plan: Doing much better. Possible CHF +/- pneumonia by CXR. Good diuresis past 48 hours. Rec consider repeat CXR and change to oral furosemide, continue beta héctor, [place]-I. Consider ICD implant if EF still < 35% in 90 days. (4) Hypertension ICD Codes: I10 - Essential (primary) hypertension Status: Chronic Plan: Stable. Normotensive. Code Status Full Code Discussed Condition With patient Problem Qualifiers (1) CAD (coronary artery disease): Qualified Codes: I25.10 - Atherosclerotic heart disease of [place] coronary artery without angina pectoris (2) Hypertension: Qualified Codes: I10 - Essential (primary) hypertension Amauri Almanza MD Jun 29, 2017 09:20
--- NOTE | 2017-06-29 10:27 | RADRPT ---
EXAM DATE/TIME: 06/29/2017 09:36 [place] COMPARISON: CHEST SINGLE AP, June 26, 2017, 2:05. INDICATIONS : Shortness of breath MEDICAL HISTORY : None. SURGICAL HISTORY : None. ENCOUNTER: Initial ACUITY: 1 day PAIN SCORE: 0/10 LOCATION: Bilateral chest FINDINGS: A single view of the chest demonstrates minimal bibasilar densities. Heart and the upper limits of no rmal in size. The cardiomediastinal contours are unremarkable. Osseous structures are intact. CONCLUSION: Minimal residual bibasilar densities. Significant improvement of bilateral airspace disease seen on p revious study. Joss Wolf MD on June 29, 2017 at 10:24 Board Certified Radiologist. This report was verified electronically.
[2017-06-29] MEDS: HEPARIN-D5W 25,000 U/250 ML 250 ML IV PRN (11:16)
--- NOTE | 2017-06-29 11:27 | HHI.PR ---
Subjective Remarks Tells me rested well last night and denies SOB and CP this AM Objective Vital Signs Date Time Temp Pulse Resp B/P (MAP) Pulse Ox O2 Delivery O2 Flow Rate FiO2 06/29/17 07:00 97.8 57 20 132/70 (90) 94 06/29/17 07:00 94 Room Air 06/29/17 06:00 58 06/29/17 05:00 56 06/29/17 04:08 95 06/29/17 04:00 98.3 57 18 120/51 (74) 98 06/29/17 04:00 57 06/29/17 04:00 Bi-Pap 06/29/17 03:00 58 06/29/17 02:00 59 06/29/17 01:00 56 06/29/17 00:00 98.0 51 18 129/56 (80) 94 06/29/17 00:00 Nasal Cannula 4.00 06/29/17 00:00 51 06/28/17 23:57 97 45 06/28/17 23:00 56 06/28/17 22:00 59 06/28/17 21:00 56 06/28/17 20:00 Nasal Cannula 4.00 06/28/17 20:00 57 06/28/17 20:00 98.1 57 20 116/60 (78) 93 06/28/17 19:27 96 21 06/28/17 18:00 62 06/28/17 17:00 50 06/28/17 16:00 58 06/28/17 15:00 56 06/28/17 15:00 98.4 57 20 131/70 (90) 100 06/28/17 14:00 56 06/28/17 13:00 58 06/28/17 12:00 58 I/O 06/28/17 06/28/17 06/28/17 06/29/17 06/29/17 06/29/17 07:00 15:00 23:00 07:00 15:00 23:00 Intake Total 648 ml 0 ml 970 ml 880 ml Output Total 900 ml 1800 ml 2000 ml Balance -252 ml 0 ml -830 ml -1120 ml Intake Oral 480 ml 720 ml 720 ml IV Total 168 ml 0 ml 250 ml 160 ml Output Urine Total 900 ml 1800 ml 2000 ml # Bowel Movements 0 0 Result Diagram: 06/29/17 0505 06/28/17 0612 Imaging Last Impressions Chest X-Ray 06/29/17 0000 Signed Impressions: Service Date/Time: Thursday, June 29, 2017 09:36 - CONCLUSION: Minimal residual bibasilar densities. Significant improvement of bilateral airspace disease seen on previous study. Joss Wolf MD Objective Remarks HEENT - AT/NC; Lungs - CTA; CV - RRR without murmur, rub or gallop; Abd - soft and nontender; Extremities - Without edema Medications and IVs Current Medications Medications (Trade) Dose Ordered Sig/Tatyana Route Start Time Stop Time Status Last Admin (Nitrostat Sl) 0.4 mg Q5M PRN SL 06/26/17 02:00 (NS Flush) 2 ml BID IV FLUSH 06/26/17 09:00 06/29/17 09:07 (NS Flush) 2 ml UNSCH PRN IV FLUSH 06/26/17 04:45 (Lasix Inj) 40 mg BID@ IVP 06/26/17 09:00 06/29/17 09:06 (D50w (Vial) Inj) 50 ml UNSCH PRN IV PUSH 06/26/17 05:00 (Glucagon Inj) 1 mg UNSCH PRN OTHER 06/26/17 05:00 (NovoLOG SUPPLEMENTAL SCALE) 1 ACHS SLIDING SCALE SQ 06/26/17 08:00 06/29/17 09:08 (Norvasc) 5 mg DAILY PO 06/26/17 09:00 06/29/17 09:06 (Lipitor) 80 mg HS PO 06/26/17 21:00 06/28/17 20:32 (Plavix) 75 mg DAILY PO 06/26/17 09:00 06/29/17 09:07 (Vasotec) 20 mg DAILY PO 06/26/17 09:00 06/29/17 09:06 (Toprol Xl) 150 mg DAILY PO 06/26/17 09:00 06/29/17 09:06 (Duoneb Neb) 1 ampule Q4HR NEB PRN NEB 06/26/17 05:30 06/28/17 19:26 (Santyl Oint) 1 applic DAILY TOPICAL 06/27/17 09:00 06/29/17 09:08 (Catapres) 0.1 mg Q4H PRN PO 06/26/17 18:00 Heparin Sodium/ Dextrose 250 ml @ 13 mls/hr TITRATE PRN IV 06/27/17 03:15 06/29/17 11:16 (Ecotrin Ec) 81 mg DAILY PO 06/27/17 17:45 06/29/17 09:07 (Coumadin) 5 mg DAILY@1600 PO 06/27/17 17:45 06/28/17 16:38 Assessment and Plan Problem List: (1) Acute exacerbation of congestive heart failure ICD Codes: I50.9 - Heart failure, unspecified Status: Acute Plan: F/U Cards recommendation and repeat Echo (2) CAD (coronary artery disease) ICD Codes: I25.10 - Atherosclerotic heart disease of [place] coronary artery without angina pectoris Status: Chronic Plan: F/U Cards eval and recommendations (3) Paroxysmal atrial fibrillation ICD Codes: I48.0 - Paroxysmal atrial fibrillation Status: Chronic Plan: In NSR presently and being monitored and Cards following (4) Ischemic cardiomyopathy ICD Codes: I25.5 - Ischemic cardiomyopathy Status: Chronic Plan: Cards following. Denies CP at this time. Assessment and Plan Cont plan per Cards with diuresis and repeat Echo. Discussed Condition With Patient Discharge Planning Will be D/C home when cleared by Cards Problem Qualifiers (1) Acute exacerbation of congestive heart failure: Qualified Codes: I50.9 - Heart failure, unspecified (2) CAD (coronary artery disease): Qualified Codes: I25.10 - Atherosclerotic heart disease of [place] coronary artery without angina pectoris Cody Self Jun 29, 2017 11:27
[2017-06-29] MEDS: WARFARIN SOD 5 MG TAB PO SCH (16:47)
[2017-06-29] MEDS: ATORVASTATIN 80 MG TAB PO SCH (19:43)
[2017-06-30] VITALS (22 sets, daily range): BP systolic 124–146; BP diastolic 56–75; PULSE 52–58; RESP 16–20; TEMP 97.6–98.7; O2SAT 93–100
[2017-06-30] MEDS: HEPARIN-D5W 25,000 U/250 ML 250 ML IV PRN (01:32)
[2017-06-30 08:19] LABS: INTERNATIONAL NORMALIZED RATIO 1.3 RATIO; PROTHROMBIN TIME - PATIENT 13.5 SEC (9.8-11.6)
[2017-06-30] MEDS: INSULIN ASPART SUPPLEMENTAL SCALE SQ SCH ×4 (10:22→20:24)
[2017-06-30] MEDS: SODIUM CHLORIDE 0.9% FLUSH 10 ML FLUSH IV FLUSH SCH ×2 (10:22→20:15)
[2017-06-30] MEDS: CLOPIDOGREL 75 MG TAB PO SCH (10:23)
[2017-06-30] MEDS: FUROSEMIDE 40 MG TAB PO SCH (10:23)
[2017-06-30] MEDS: METOPROLOL SUCCINATE 50 MG EXTENDED RELEASE TAB PO SCH (10:23)
[2017-06-30] MEDS: COLLAGENASE OINT 30 GM TUBE TOPICAL SCH (10:24)
[2017-06-30] MEDS: amLODIPine BESYLATE 5 MG TAB PO SCH (10:24)
[2017-06-30] MEDS: ASPIRIN EC 81 MG TABEC PO SCH (10:24)
[2017-06-30] MEDS: ENALAPRIL MALEATE 10 MG TAB PO SCH (10:24)
--- NOTE | 2017-06-30 10:25 | HHI.PR ---
Subjective Remarks Tells me rested well again last night and denies SOB and CP again this AM Objective Vital Signs Date Time Temp Pulse Resp B/P (MAP) Pulse Ox O2 Delivery O2 Flow Rate FiO2 06/30/17 06:00 57 06/30/17 05:00 55 06/30/17 04:00 54 06/30/17 04:00 Room Air 06/30/17 04:00 98.7 54 18 132/64 (86) 95 06/30/17 03:00 55 06/30/17 02:00 56 06/30/17 01:00 58 06/30/17 00:00 98.0 57 18 124/56 (78) 97 06/30/17 00:00 57 06/30/17 00:00 Room Air 06/29/17 23:00 58 06/29/17 22:00 59 06/29/17 21:00 57 06/29/17 20:00 98.1 60 18 125/63 (83) 96 06/29/17 20:00 Room Air 06/29/17 20:00 60 06/29/17 15:00 55 06/29/17 15:00 98.0 58 18 128/66 (86) 97 06/29/17 14:00 54 06/29/17 13:00 58 06/29/17 12:00 54 06/29/17 11:00 97.9 56 20 132/60 (84) 95 06/29/17 11:00 58 I/O 06/29/17 06/29/17 06/29/17 06/30/17 06/30/17 06/30/17 07:00 15:00 23:00 07:00 15:00 23:00 Intake Total 880 ml 660 ml 880 ml Output Total 2000 ml 1850 ml 1900 ml Balance -1120 ml -1190 ml -1020 ml Intake Oral 720 ml 660 ml 720 ml IV Total 160 ml 160 ml Output Urine Total 2000 ml 1850 ml 1900 ml # Bowel Movements 0 0 Result Diagram: 06/29/17 0505 06/28/17 0612 Imaging Last Impressions Chest X-Ray 06/29/17 0000 Signed Impressions: Service Date/Time: Thursday, June 29, 2017 09:36 - CONCLUSION: Minimal residual bibasilar densities. Significant improvement of bilateral airspace disease seen on previous study. Joss Wolf MD Objective Remarks HEENT - AT/NC; Lungs - CTA; CV - RRR without murmur, rub or gallop; Abd - soft and nontender; Extremities - Trace edema Medications and IVs Current Medications Medications (Trade) Dose Ordered Sig/Tatyana Route Start Time Stop Time Status Last Admin (Nitrostat Sl) 0.4 mg Q5M PRN SL 06/26/17 02:00 (NS Flush) 2 ml BID IV FLUSH 06/26/17 09:00 06/29/17 19:43 (NS Flush) 2 ml UNSCH PRN IV FLUSH 06/26/17 04:45 (D50w (Vial) Inj) 50 ml UNSCH PRN IV PUSH 06/26/17 05:00 (Glucagon Inj) 1 mg UNSCH PRN OTHER 06/26/17 05:00 (NovoLOG SUPPLEMENTAL SCALE) 1 ACHS SLIDING SCALE SQ 06/26/17 08:00 06/29/17 19:58 (Norvasc) 5 mg DAILY PO 06/26/17 09:00 06/29/17 09:06 (Lipitor) 80 mg HS PO 06/26/17 21:00 06/29/17 19:43 (Plavix) 75 mg DAILY PO 06/26/17 09:00 06/29/17 09:07 (Vasotec) 20 mg DAILY PO 06/26/17 09:00 06/29/17 09:06 (Toprol Xl) 150 mg DAILY PO 06/26/17 09:00 06/29/17 09:06 (Duoneb Neb) 1 ampule Q4HR NEB PRN NEB 06/26/17 05:30 06/28/17 19:26 (Santyl Oint) 1 applic DAILY TOPICAL 06/27/17 09:00 06/29/17 09:08 (Catapres) 0.1 mg Q4H PRN PO 06/26/17 18:00 Heparin Sodium/ Dextrose 250 ml @ 13 mls/hr TITRATE PRN IV 06/27/17 03:15 06/30/17 01:32 (Ecotrin Ec) 81 mg DAILY PO 06/27/17 17:45 06/29/17 09:07 (Coumadin) 5 mg DAILY@1600 PO 06/27/17 17:45 06/29/17 16:47 (Lasix) 40 mg DAILY PO 06/30/17 09:00 Assessment and Plan Problem List: (1) Acute exacerbation of congestive heart failure ICD Codes: I50.9 - Heart failure, unspecified Status: Acute Plan: F/U Cards recommendation and repeat Echo. CXR reveals clearing (2) CAD (coronary artery disease) ICD Codes: I25.10 - Atherosclerotic heart disease of [place] coronary artery without angina pectoris Status: Chronic Plan: F/U Cards eval and recommendations. For AICD if reduced EF persists (3) Paroxysmal atrial fibrillation ICD Codes: I48.0 - Paroxysmal atrial fibrillation Status: Chronic Plan: In NSR presently and being monitored and Cards following (4) Ischemic cardiomyopathy ICD Codes: I25.5 - Ischemic cardiomyopathy Status: Chronic Plan: Cards following. Denies CP at this time. Assessment and Plan Cont plan per Cards with diuresis and repeat Echo. Discussed Condition With Patient Discharge Planning Homw when cleared by Cards Problem Qualifiers (1) Acute exacerbation of congestive heart failure: Qualified Codes: I50.9 - Heart failure, unspecified (2) CAD (coronary artery disease): Qualified Codes: I25.10 - Atherosclerotic heart disease of [place] coronary artery without angina pectoris Cody Self Jun 30, 2017 10:25
--- NOTE | 2017-06-30 11:01 | PD.CARD.PN ---
Subjective Subjective Remarks Denies dyspnea, CP, palpitations, dizziness, PND. Slept well. Ambulating without difficulty. Objective Medications Item Value Date Time Furosemide 40 mg 06/30/17 0900 (Lasix) DAILY/PO 06/30/17 1023 Aspirin 81 mg 06/27/17 1745 (Ecotrin Ec) DAILY/PO 06/30/17 1024 Warfarin Sodium 5 mg 06/27/17 1745 (Coumadin) DAILY@1600/PO 06/29/17 1647 Heparin Sodium/ 250 ml @ 13 mls/hr 06/27/17 0315 Dextrose TITRATE PRN/IV 06/30/17 0132 Atorvastatin 80 mg 06/26/17 2100 Calcium HS/PO 06/29/17 1943 (Lipitor) Amlodipine 5 mg 06/26/17 0900 Besylate DAILY/PO 06/30/17 1024 (Norvasc) Clopidogrel 75 mg 06/26/17 0900 Bisulfate DAILY/PO 06/30/17 1023 (Plavix) Enalapril Maleate 20 mg 06/26/17 0900 (Vasotec) DAILY/PO 06/30/17 1024 Metoprolol 150 mg 06/26/17 0900 Succinate DAILY/PO 06/30/17 1023 (Toprol Xl) Current Medications Medications (Trade) Dose Ordered Sig/Tatyana Route Start Time Stop Time Status Last Admin (Nitrostat Sl) 0.4 mg Q5M PRN SL 06/26/17 02:00 (NS Flush) 2 ml BID IV FLUSH 06/26/17 09:00 06/30/17 10:22 (NS Flush) 2 ml UNSCH PRN IV FLUSH 06/26/17 04:45 (D50w (Vial) Inj) 50 ml UNSCH PRN IV PUSH 06/26/17 05:00 (Glucagon Inj) 1 mg UNSCH PRN OTHER 06/26/17 05:00 (NovoLOG SUPPLEMENTAL SCALE) 1 ACHS SLIDING SCALE SQ 06/26/17 08:00 06/30/17 10:22 (Norvasc) 5 mg DAILY PO 06/26/17 09:00 06/30/17 10:24 (Lipitor) 80 mg HS PO 06/26/17 21:00 06/29/17 19:43 (Plavix) 75 mg DAILY PO 06/26/17 09:00 06/30/17 10:23 (Vasotec) 20 mg DAILY PO 06/26/17 09:00 06/30/17 10:24 (Toprol Xl) 150 mg DAILY PO 06/26/17 09:00 06/30/17 10:23 (Duoneb Neb) 1 ampule Q4HR NEB PRN NEB 06/26/17 05:30 06/28/17 19:26 (Santyl Oint) 1 applic DAILY TOPICAL 06/27/17 09:00 06/30/17 10:24 (Catapres) 0.1 mg Q4H PRN PO 06/26/17 18:00 Heparin Sodium/ Dextrose 250 ml @ 13 mls/hr TITRATE PRN IV 06/27/17 03:15 06/30/17 01:32 (Ecotrin Ec) 81 mg DAILY PO 06/27/17 17:45 06/30/17 10:24 (Coumadin) 5 mg DAILY@1600 PO 06/27/17 17:45 06/29/17 16:47 (Lasix) 40 mg DAILY PO 06/30/17 09:00 06/30/17 10:23 Vital Signs / I&O Vital Signs Date Time Temp Pulse Resp B/P (MAP) Pulse Ox O2 Delivery O2 Flow Rate FiO2 06/30/17 10:53 21 06/30/17 06:00 57 06/30/17 05:00 55 06/30/17 04:00 54 06/30/17 04:00 Room Air 06/30/17 04:00 98.7 54 18 132/64 (86) 95 06/30/17 03:00 55 06/30/17 02:00 56 06/30/17 01:00 58 06/30/17 00:00 98.0 57 18 124/56 (78) 97 06/30/17 00:00 57 06/30/17 00:00 Room Air 06/29/17 23:00 58 06/29/17 22:00 59 06/29/17 21:00 57 06/29/17 20:00 98.1 60 18 125/63 (83) 96 06/29/17 20:00 Room Air 06/29/17 20:00 60 06/29/17 15:00 55 06/29/17 15:00 98.0 58 18 128/66 (86) 97 06/29/17 14:00 54 06/29/17 13:00 58 06/29/17 12:00 54 06/29/17 11:00 97.9 56 20 132/60 (84) 95 06/29/17 11:00 58 I/O 06/29/17 06/29/17 06/29/17 06/30/17 06/30/17 06/30/17 07:00 15:00 23:00 07:00 15:00 23:00 Intake Total 880 ml 660 ml 880 ml Output Total 2000 ml 1850 ml 1900 ml Balance -1120 ml -1190 ml -1020 ml Intake Oral 720 ml 660 ml 720 ml IV Total 160 ml 160 ml Output Urine Total 2000 ml 1850 ml 1900 ml # Bowel Movements 0 0 Physical Exam GENERAL: Well developed, well nourished. No acute distress. HEENT: Jugular venous pressure is normal. CHEST: Lungs clear to auscultation. Decreased breath sounds bases. CARDIAC: Regular rate and rhythm without S3, S4, or murmur. ABDOMEN: Soft, nontender, no hepatosplenomegaly. Bowel sounds present. EXTREMITIES: No clubbing, cyanosis, edema. Laboratory Laboratory Tests Test 06/30/17 07:00 Prothrombin Time 13.5 SEC Prothromb Time International Ratio 1.3 RATIO Activated Partial Thromboplast Time 60.7 SEC Assessment and Plan Problem List: (1) CAD (coronary artery disease) ICD Codes: I25.10 - Atherosclerotic heart disease of [place] coronary artery without angina pectoris Status: Chronic Plan: Stable CAD status. No angina. Patient apparently s/p PCI's at [facility] recently as CABG felt too high risk for his multivessel CAD. Slightly abnormal troponin levels possibly due to atrial fib recurrence. Rec continue medical therapy of his CAD, including Plavix and baby aspirin. OK for discharge from my standpoint today with close f/u of his PT/INR. 3-4 week f/u with me. Scripts written. (2) Paroxysmal atrial fibrillation ICD Codes: I48.0 - Paroxysmal atrial fibrillation Status: Chronic Plan: Remains in NSR. His thromboembolic risk is high. INR subtherapeutic. Rec increase warfarin to 7.5 mg daily, close outpatient f/u of INR. (3) Ischemic cardiomyopathy ICD Codes: I25.5 - Ischemic cardiomyopathy Status: Chronic Plan: Doing much better. Chest x-ray much improved. . Rec continue current medical regimen. Consider ICD implant if EF still < 35% in 80 days. (4) Hypertension ICD Codes: I10 - Essential (primary) hypertension Status: Chronic Plan: Stable. Normotensive. Code Status full code Discussed Condition With patient Problem Qualifiers (1) CAD (coronary artery disease): Qualified Codes: I25.10 - Atherosclerotic heart disease of [place] coronary artery without angina pectoris (2) Hypertension: Qualified Codes: I10 - Essential (primary) hypertension Amauri Almanza MD Jun 30, 2017 11:01
[2017-06-30] MEDS ORDERED: WARFARIN SOD 7.5 MG TAB PO SCH (16:00)
[2017-06-30] MEDS: ATORVASTATIN 80 MG TAB PO SCH (20:15)
[2017-07-01] VITALS (13 sets, daily range): BP systolic 130–149; BP diastolic 51–69; PULSE 54–65; RESP 16–18; TEMP 97.4–98.6; O2SAT 93–98
[2017-07-01] MEDS: amLODIPine BESYLATE 5 MG TAB PO SCH (09:31)
[2017-07-01] MEDS: METOPROLOL SUCCINATE 50 MG EXTENDED RELEASE TAB PO SCH (09:31)
[2017-07-01] MEDS: CLOPIDOGREL 75 MG TAB PO SCH (09:31)
[2017-07-01] MEDS: INSULIN ASPART SUPPLEMENTAL SCALE SQ SCH (09:31)
[2017-07-01] MEDS: COLLAGENASE OINT 30 GM TUBE TOPICAL SCH (09:32)
[2017-07-01] MEDS: ASPIRIN EC 81 MG TABEC PO SCH (09:32)
[2017-07-01] MEDS: ENALAPRIL MALEATE 10 MG TAB PO SCH (09:32)
[2017-07-01] MEDS: SODIUM CHLORIDE 0.9% FLUSH 10 ML FLUSH IV FLUSH SCH (09:32)
[2017-07-01] MEDS: FUROSEMIDE 40 MG TAB PO SCH (09:32)
[2017-07-01] MEDS ORDERED: ENOX100P SQ (10:52)
[2017-07-01] MEDS ORDERED: COUM7.5T PO (10:52)
[2017-07-01 11:04] LABS: INTERNATIONAL NORMALIZED RATIO 1.4 RATIO; PROTHROMBIN TIME - PATIENT 14.1 SEC (9.8-11.6)
--- NOTE | 2017-07-01 11:14 | HHI.DS ---
Discharge Summary Admission Date Jun 26, 2017 at 04:13 Admitting Diagnosis CHF exacerbation, Non-STEMI CBC/BMP: 06/29/17 0505 06/28/17 0612 Significant Findings Laboratory Tests Test 06/28/17 15:09 06/28/17 23:27 06/29/17 05:05 06/30/17 07:00 Activated Partial Thromboplast Time 40.3 SEC (24.3-30.1) 49.3 SEC (24.3-30.1) 60.7 SEC (24.3-30.1) Red Blood Count 4.26 MIL/MM3 (4.50-5.90) Hemoglobin 11.2 GM/DL (13.0-17.0) Hematocrit 33.2 % (39.0-51.0) Mean Corpuscular Volume 78.0 FL (80.0-100.0) Mean Corpuscular Hemoglobin 26.2 PG (27.0-34.0) Prothrombin Time 12.6 SEC (9.8-11.6) 13.5 SEC (9.8-11.6) Test 07/01/17 10:27 PE at Discharge GENERAL: well nourished found in bed in no apparent distress HEAD: Atraumatic. Normocephalic. No temporal or scalp tenderness. EYES: Pupils equal round and reactive. Extraocular motions intact. No scleral icterus. No injection or drainage. ENT: Nose without bleeding, purulent drainage or septal hematoma. Throat without erythema, tonsillar hypertrophy or exudate. Uvula midline. Airway patent. NECK: Trachea midline. No JVD or lymphadenopathy. Supple, nontender, no meningeal signs. CARDIOVASCULAR: Regular rate and rhythm RESPIRATORY: Clear,b/l no wheezes, rales, or rhonchi. GASTROINTESTINAL: Abdomen soft, non-tender, nondistended. No hepato-splenomegaly , or palpable masses. No guarding. MUSCULOSKELETAL:No joint tenderness, effusion, or edema noted. No calf tenderness NEUROLOGICAL: Awake and alert. Cranial nerves II through XII intact. Motor and sensory grossly within normal limits. Normal speech. Wound to Left foot, dressing intact Hospital Course 06/26/17. admitted for hypoxia and chest pain. Recently d/c in April to [facility] for CABG that was not completed.r/t MRSA foot ulcer. Per patient he was stented. Cardiology consulted Echo completed shown decline in EF currently 30%. Placed on Heparin for Thrombolytic prevention. Increased troponin determined likely r/t Paroxysmal Afib. Developed some difficulty breathing during his stay , requiring Bipap, pulmonary consulted. No acute findings, patient long time smoker, with COPD, responding to Atrovent nebs. Wound care consulted for left foot ulcer with dressing changed of Santyl daily. Pt Condition on Discharge: Stable Discharge Disposition: Discharge Home Discharge Instructions DIET: Follow Instructions for: Heart Healthy Diet Activities you can perform: Regular-No Restrictions Follow up Referrals: Cardiology - 3 Weeks @ [facility] with Amauri Almanza MD PCP Follow-up with Dr Carlton Morris made for 07/02/17 1:30 pm [facility] [address] [facility] [id number] New Orders: PT/INR - Daily @ Outside Lab - Other New Medications: Enoxaparin Inj (Lovenox Inj) 100 Mg/Ml Syr 100 MG SQ DAILY for Blood Clot Prevention, #7 SYRINGE 0 Refills Warfarin (Coumadin) 7.5 Mg Tab 7.5 MG PO DAILY@1600 for Blood Clot Prevention for 30 Days, #30 TAB Continued Medications: Amlodipine (Amlodipine) 5 Mg Tab 5 MG PO DAILY for Blood Pressure Management, #30 TAB 0 Refills Ascorbic Acid (Vitamin C) 250 Mg Tab 250 MG PO for Nutritional Supplement, TAB [address] (Aspir-81) 81 Mg Tabdr Atorvastatin (Atorvastatin) 80 Mg Tab 80 MG PO HS for Cholesterol Management, #30 TAB 0 Refills Clopidogrel (Clopidogrel) 75 Mg Tab 75 MG PO DAILY for Blood Clot Prevention, #30 TAB 0 Refills Enalapril (Enalapril) 20 Mg Tab 20 MG PO DAILY, #30 TAB 0 Refills Glipizide (Glipizide) 5 Mg Tab 5 MG PO DAILY for Blood Sugar Management, #30 TAB 0 Refills Take 30 minutes before a meal Insulin Lispro (Human) Inj (Humalog Inj) 1,000 Unit/10 Ml Vial 1-9 UNITS SQ ACHS for Blood Sugar Management, #1 VIAL 0 Refills Max dose at bedtime:( )units; sugars< 70,(0)units; sugars 150-199,(1)unit; sugars 200-249,(3)units; sugars 250-299,(5)units; sugars 300-349,(7)units; sugars more than 349,(9)units. Metformin (Metformin) 1,000 Mg Tab 1000 MG PO BIDPC for Blood Sugar Management, #60 TAB 0 Refills Metoprolol Succinate ER 24 HR (Metoprolol Succinate ER 24 HR) 100 Mg Tab 150 MG PO DAILY, #30 TAB 0 Refills Zinc Sulfate (Zinc Sulfate) 220 Mg Tab 220 MG PO DAILY for Nutritional Supplement, TAB 0 Refills Discontinued Medications: Warfarin (Warfarin) 5 Mg Tab 5 MG PO DAILY for Blood Clot Prevention, #30 TAB 0 Refills Additional Information D/C home on Lovenox, Instructed to come to PCP office daily for INR checks. Apt on Saturday07/02/17 at 1:30 pm. Lovenox will be d/c once INR >2.0 Will follow up with wood block artist in 3 weeks. Wound care in office to Daniela Bethea Jul 01, 2017 11:14
[2017-07-01] MEDS ORDERED: ENOXAPARIN SODIUM 100 MG/ML SYRINGE SQ SCH (12:00)
== END 2017-07-01 13:18 | disposition home or self-care (01) | DRG 292 ==
LOC: NEPC 01:42 → MERGE 04:13 → NEDA 04:13 → N03A 05:46 → N03B 06-27 07:47 → N03A 06-27 15:12 → HCIS 06-27 17:09
PROVIDERS: ADMIT Family Medicine; ATTEND Family Medicine
PROC: 5A09357 Assistance with Respiratory Ventilation, Less than 24 Consecutive Hours, Continuous Positive Airway Pressure (ICD-10-PCS; principal; 2017-06-26)
DX: I11.0 Hypertensive heart disease with heart failure (principal); L97.329 Non-pressure chronic ulcer of left ankle with unspecified severity; E11.51 Type 2 diabetes mellitus with diabetic peripheral angiopathy without gangrene; R06.03 Acute respiratory distress; E11.622 Type 2 diabetes mellitus with other skin ulcer; I48.0 Paroxysmal atrial fibrillation; J44.9 Chronic obstructive pulmonary disease, unspecified; I25.10 Atherosclerotic heart disease of native coronary artery without angina pectoris; R09.02 Hypoxemia; I50.9 Heart failure, unspecified; E78.5 Hyperlipidemia, unspecified; I25.5 Ischemic cardiomyopathy; H91.90 Unspecified hearing loss, unspecified ear; I25.2 Old myocardial infarction; Z79.01 Long term (current) use of anticoagulants; Z85.820 Personal history of malignant melanoma of skin; Z86.14 Personal history of Methicillin resistant Staphylococcus aureus infection; Z87.891 Personal history of nicotine dependence; Z95.5 Presence of coronary angioplasty implant and graft; Z79.4 Long term (current) use of insulin
CPT/HCPCS: 36600; 71045; 80048; 80053; 82550; 82805; 82948; 83036; 83735; 83880; 84484; 85025; 85027; 85610; 85730; 93005; 93306; 94002; 94003; 94640; 94664; 96365; 96375; J1644; J1650; J1815; J1940; J7644

== ENCOUNTER 2018-01-08 10:52 | Inpatient (IN) ==
[2018-01-08] MEDS ORDERED: Vancomycin Inj 1 GM/200 ML PIGGYBACK IV.SIG ONE (12:44)
--- NOTE | 2018-01-08 12:52 | ED ---
HPI General Chief complaint: Extremity Problem,Nontraumatic Stated complaint: foot/leg pain Time Seen by Provider: 01/08/18 12:32 History of Present Illness HPI Narrative: This patient complains of infection in his right lower leg. Duration 1 week. Severity is moderate. He is diabetic. He denies injury. Over the last week it has become gradually more reddened and swollen and warm and has drained some stuff. No fever. No alleviating factors. No exacerbating factors. Related Data Home Medications Medication Instructions Recorded Confirmed amlodipine 10 mg PO DAILY 01/08/18 01/08/18 atenolol [Tenormin] 25 mg PO DAILY 01/08/18 01/08/18 atorvastatin [Lipitor] 80 mg PO HS 01/08/18 01/08/18 clopidogrel [Plavix] 75 mg PO DAILY 01/08/18 01/08/18 furosemide [Lasix] 40 mg PO DAILY 01/08/18 01/08/18 gabapentin 100 mg PO HS 01/08/18 01/08/18 glipizide 5 mg PO DAILY 01/08/18 01/08/18 hydrochlorothiazide 25 mg PO DAILY 01/08/18 01/08/18 metoprolol succinate 50 mg PO DAILY 01/08/18 01/08/18 oxycodone-acetaminophen [Percocet] 1 tab PO BID PRN 01/08/18 01/08/18 warfarin [Coumadin] 1 mg PO DAILY 01/08/18 01/08/18 Allergies Allergy/AdvReac Type Severity Reaction Status Date / Time acetaminophen Allergy Severe Tachycardia Verified 01/08/18 12:39 throat swelling codeine Allergy Severe Rash Unverified 01/08/18 12:39 propoxyphene Allergy Severe Nausea/Vomi Unverified 01/08/18 12:39 ting Review of Systems ROS: all other systems reviewed are negative [facility] Medical History Medical History COPD (chronic obstructive pulmonary disease) (Acute) Diabetes (Acute) Heart attack (Acute) Hypertension (Acute) Surgical History Surgical History H/O heart artery stent (Acute) Social History Social History Substance History: No History of Abuse Second Hand Smoke Exposure: Yes Smoking Status: Current every day smoker Tobacco Type: Cigarettes How Often Do You Have a Drink Containing Alcohol: Never Recent Travel in [facility] within the Last 8 Weeks: No Recent Out of Country Travel within the Last 8 Weeks: No Immunization History Tetanus Immunization: <5 Years Hx Influenza Vaccine This Season: Yes Exam Narrative Exam Narrative: GENERAL: Thin pleasant well-developed patient in no apparent distress. SKIN: Focused skin assessment reveals no rash and nodules. Skin is Warm and dry. HEAD: Atraumatic. Normocephalic. EYES: Pupils equal and round. No scleral icterus. No injection or drainage. ENT: No nasal bleeding or discharge. Mucous membranes pink and moist. NECK: Trachea midline. No JVD. CARDIOVASCULAR: Regular rate and rhythm. No murmur appreciated. RESPIRATORY: No accessory muscle use. Clear to auscultation. Breath sounds equal bilaterally. GASTROINTESTINAL: Abdomen soft, non-tender, nondistended. Hepatic and splenic margins not palpable. MUSCULOSKELETAL: No obvious deformities. No clubbing. No cyanosis. His right lower extremity is abnormal from the mid [place] down. He has erythema and warmth and some swelling. There is some blistered areas over the foot. There is some serous drainage and some yellow honey crusting. Nothing purulent to culture. NEUROLOGICAL: Awake and alert. No obvious cranial nerve deficits. Motor grossly within normal limits. Normal speech. PSYCHIATRIC: Appropriate mood and affect; insight and judgment normal. Course Initial Documented Vital Signs Temperature 98.6 F 01/08/18 10:59 Pulse Rate 60 01/08/18 10:59 Respiratory Rate 16 01/08/18 10:59 Blood Pressure 126/59 L 01/08/18 10:59 Pulse Oximetry 98 01/08/18 10:59 Last Documented Vital Signs Temperature 98.6 F 01/08/18 10:59 Pulse Rate 61 01/08/18 12:37 Respiratory Rate 18 01/08/18 12:37 Blood Pressure 155/64 H 01/08/18 12:37 Pulse Oximetry 99 01/08/18 12:37 Medical Decision Making MDM Narrative Medical decision making narrative: IV placed and labs sent. I gave him 1 g IV vancomycin. He has a right leg cellulitis/diabetic foot infection. Accu-Chek 256 She has leukocytosis of 16.5 thousand. Has renal insufficiency and metabolic studies. Patient has clinical cellulitis and diabetic foot infection. I think he needs admission for IV antibiotics. I reviewed with the nurse practitioner Dr. Sánchez and they will admit Medical Screen Exam Complete: Yes Emergency Medical Condition: Yes Medical Records Medical records reviewed: Yes I reviewed the patient's medical records. Lab Data Result diagrams: 01/08/18 13:00 01/08/18 13:00 Lab Results 01/08/18 01/08/18 01/08/18 Range/Units 12:40 13:00 13:00 WBC 16.5 H (4.0-11.0) th/mm3 RBC 4.44 L (4.50-5.90) mil/mm3 Hgb 11.0 L (13.0-17.0) gm/dL Hct 33.7 L (39.0-51.0) % MCV 75.8 L (80.0-100.0) fL MCH 24.8 L (27.0-34.0) pg MCHC 32.7 (32.0-36.0) % RDW 16.7 (11.6-17.2) % Plt Count 292 (150-450) th/mm3 MPV 8.8 (7.0-11.0) fL Neut % (Auto) 85.3 H (16.0-70.0) % Lymph % (Auto) 5.0 L (9.0-44.0) % [place] % (Auto) 9.5 H (0.0-8.0) % Eos % (Auto) 0.1 (0.0-4.0) % Baso % (Auto) 0.1 (0.0-2.0) % Neut # (Auto) 14.1 H (1.8-7.7) th/mm3 Lymph # (Auto) 0.8 L (1.0-4.8) th/mm3 [place] # (Auto) 1.6 H (0.0-0.9) th/mm3 Eos # (Auto) 0.0 (0.0-0.4) th/mm3 Baso # (Auto) 0.0 (0.0-0.2) th/mm3 WBC Differential . Differential Comment Auto diff final Sodium 136 (136-145) meq/L Potassium 4.1 (3.5-5.1) meq/L Chloride 102 (98-107) meq/L Carbon Dioxide 26.5 (21.0-32.0) meq/L Anion Gap 8 (5-15) meq/L BUN 39 H (7-18) mg/dL Creatinine 1.55 H (0.60-1.30) mg/dL Estimated GFR 45 L (>89) mL/min POC Glucose 256 H (68-110) mg/dl Random Glucose 224 H (74-106) mg/dL Calcium 8.3 L (8.5-10.1) mg/dL Total Bilirubin 0.4 (0.2-1.0) mg/dL AST 22 (15-37) U/L ALT 19 (12-78) U/L Alkaline Phosphatase 122 H (45-117) U/L Total Protein 7.1 (6.4-8.2) g/dL Albumin 2.1 L (3.4-5.0) g/dL Discharge Plan Discharge Disposition Patient Disposition: 30 Still Patient Discharge Details Diagnosis: Cellulitis, Diabetic infection of right foot Physicians Team ED Provider: Bashir Liu Primary Care Provider: Reza Del Rio Rxs /Orders / Referrals /Forms Prescriptions: No Action furosemide [Lasix] 40 mg Tablet 40 mg PO DAILY RF: 0 atorvastatin [Lipitor] 80 mg Tablet 80 mg PO HS RF: 0 metoprolol succinate 50 mg Tablet Extended Release 24 Hr 50 mg PO DAILY RF: 0 atenolol [Tenormin] 25 mg Tablet 25 mg PO DAILY RF: 0 clopidogrel [Plavix] 75 mg Tablet 75 mg PO DAILY RF: 0 oxycodone-acetaminophen [Percocet] 10-325 mg Tablet 1 tab PO BID PRN (Reason: Pain) RF: 0 amlodipine 10 mg Tablet 10 mg PO DAILY RF: 0 hydrochlorothiazide 25 mg Tablet 25 mg PO DAILY RF: 0 gabapentin 100 mg Capsule 100 mg PO HS RF: 0 warfarin [Coumadin] 1 mg Tablet 1 mg PO DAILY RF: 0 glipizide 5 mg Tablet 5 mg PO DAILY RF: 0 Discharge Interventions Interventions: Vital Signs Last Done: 01/08/18 12:37 Status ED Status: With Doctor
[2018-01-08] MEDS ORDERED: Vancomycin Inj 1,000 MG in Sodium Chlor 0.9% Inj 250 ML IV.SIG ONE (13:00)
[2018-01-08 13:38] LABS: Baso % (Auto) 0.1 % (0.0-2.0); Eos % (Auto) 0.1 % (0.0-4.0); Hematocrit 33.7 % (39.0-51.0); Lymph # (Auto) 0.8 th/mm3 (1.0-4.8); Mean Corpuscular HGB Conc 32.7 % (32.0-36.0); Mean Corpuscular Hemoglobin 24.8 pg (27.0-34.0); Mean Corpuscular Volume 75.8 fL (80.0-100.0); Mean Platelet Volume 8.8 fL (7.0-11.0); Mono # (Auto) 1.6 th/mm3 (0.0-0.9); Mono % (Auto) 9.5 % (0.0-8.0); Neut # (Auto) 14.1 th/mm3 (1.8-7.7); Neut % (Auto) 85.3 % (16.0-70.0); Platelet Count 292 th/mm3 (150-450); Red Blood Count 4.44 mil/mm3 (4.50-5.90); Red Cell Distribution Width 16.7 % (11.6-17.2); White Blood Count 16.5 th/mm3 (4.0-11.0)
[2018-01-08 13:57] LABS: Albumin 2.1 g/dL (3.4-5.0); Anion Gap 8 meq/L (5-15); Aspartate Aminotransferase 22 U/L (15-37); Blood Urea Nitrogen 39 mg/dL (7-18); Calcium 8.3 mg/dL (8.5-10.1); Carbon Dioxide 26.5 meq/L (21.0-32.0); Chloride 102 meq/L (98-107); Glomerular Filtration Rate 45 mL/min (>89); Glucose,Random 224 mg/dL (74-106); Potassium 4.1 meq/L (3.5-5.1); Sodium 136 meq/L (136-145)
[2018-01-08 13:58] LABS: Alanine Aminotransferase 19 U/L (12-78)
[2018-01-08 14:01] LABS: Alkaline Phosphatase 122 U/L (45-117); Total Protein 7.1 g/dL (6.4-8.2)
[2018-01-08] MEDS ORDERED: Bisacodyl 10 MG Supp RECTAL PRN (14:35)
[2018-01-08] MEDS: Senna/Docusate Sodium 8.6/50 MG Tablet PO SCH (20:43)
[2018-01-08] MEDS: Insulin NovoLIN Regular Correctional Sugar Inj SQ SCH (21:00)
[2018-01-08] MEDS ORDERED: Dextrose 50% in Water 50 ML Vial IV.PUSH PRN (21:47)
[2018-01-08] MEDS ORDERED: Vancomycin Consult Pharmacy 1 EACH OTHER SCH (22:00)
[2018-01-09] MEDS: Acetaminophen 325 MG Tablet PO PRN (02:05)
[2018-01-09 05:26] LABS: Baso % (Auto) 0.2 % (0.0-2.0); Eos % (Auto) 0.1 % (0.0-4.0); Hematocrit 31.7 % (39.0-51.0); Lymph # (Auto) 0.6 th/mm3 (1.0-4.8); Mean Corpuscular HGB Conc 31.4 % (32.0-36.0); Mean Corpuscular Hemoglobin 23.9 pg (27.0-34.0); Mean Corpuscular Volume 76.1 fL (80.0-100.0); Mean Platelet Volume 8.2 fL (7.0-11.0); Mono # (Auto) 1.4 th/mm3 (0.0-0.9); Mono % (Auto) 10.4 % (0.0-8.0); Neut # (Auto) 10.9 th/mm3 (1.8-7.7); Neut % (Auto) 84.3 % (16.0-70.0); Platelet Count 277 th/mm3 (150-450); Red Blood Count 4.17 mil/mm3 (4.50-5.90); Red Cell Distribution Width 16.7 % (11.6-17.2); White Blood Count 12.9 th/mm3 (4.0-11.0)
[2018-01-09 05:40] LABS: Calcium 8.1 mg/dL (8.5-10.1); Carbon Dioxide 27.1 meq/L (21.0-32.0); INR 1.1 Ratio; Potassium 4.1 meq/L (3.5-5.1); Prothrombin Time 10.7 sec (9.8-11.6)
--- NOTE | 2018-01-09 10:00 | P.HPFP ---
History of Present Illness Service: Family Medicine Primary Care Physician: Reza Del Rio MD Chief Complaint: Presents with pain and reddness ot RLE. History of Present Illness: This patient complains of infection in his right lower leg. Duration 1 week. Severity is moderate. He is diabetic. He denies injury. Over the last week it has become gradually more reddened and swollen and warm and has drained some stuff. No fever. No alleviating factors. No exacerbating factors. - Diagnosis (1) Diabetic infection of right foot (2) Diabetes (3) HTN (hypertension) (4) COPD (chronic obstructive pulmonary disease) (5) Blood coagulation disorder Inpatient Certification: I certify that the inpatient services were ordered in accordance with Medicare regulations governing the order. This includes certification that hospital inpatient services are reasonable and necessary and in the case of services not specified as inpatient-only under 42 CFR 419.22(n), that they are appropriately provided as inpatient services in accordance to with the 2-midnight benchmark under 43 CFR 412.3(e) Estimated Total Length of Stay (Days): 3 Plans for Post Hospital Care: Home Review of Systems All other systems reviewed negative except as stated in HPI PMFSH - History History Provided By: Patient - Medical History Medical History: Medical History (Last Updated 01/08/18 @ 12:29 by Sara Sherman) COPD (chronic obstructive pulmonary disease) Diabetes Heart attack Hypertension - Surgical History Surgical History: Surgical History (Last Updated 01/08/18 @ 11:02 by Vanessa Hoffman) H/O heart artery stent - Tobacco History Second Hand Smoke Exposure: No Tobacco Use In Past 30 Days: Yes Smoking Status: Former smoker Tobacco Type: Cigarettes - Alcohol History How Often Do You Have a Drink Containing Alcohol: Never - Substance Use History Substance History: No History of Abuse - Travel History Recent Travel in the [place] Within the Last 8 Weeks: No Recent Travel Out of the Country Within the Last 8 Weeks: No - Immunization History Tetanus Immunization: Unsure Hx Influenza Vaccine This Season: No Medications and Allergies Active Medications: Active Medications Acetaminophen (Tylenol) 650 mg PO Q4H PRN PRN Reason: PAIN AND FEVER Last Admin: 01/09/18 02:05 Dose: 650 mg Al Hydroxide/Mg Hydroxide (Milk Of Magnesia Liq) 30 ml PO Q12H PRN PRN Reason: Mild Constipation Bisacodyl (Dulcolax Supp) 10 mg RECTAL DAILY PRN PRN Reason: SEVERE CONSITIPATION Dextrose (D50w Vial) 50 ml IV.PUSH UNSCH PRN PRN Reason: PER HYPOGLYCEMIA PROTOCOL Glucagon (Glucagon Inj) 1 mg OTHER PRN PRN PRN Reason: for Hypoglycemia Protocol Pharmacy Profile Note (Vancomycin Consult Pharmacy) mls @ 0 mls/hr OTHER UNSCH [facility] Insulin Human Regular (Novolin R Correctional Sugar Inj) 0 units SQ ACHS [facility]; Protocol Last Admin: 01/08/18 21:00 Dose: Not Given Lactulose (Lactulose Liq) 30 ml PO DAILY PRN PRN Reason: SEVERE CONSITIPATION Senna/Docusate Sodium (Kate-Colace) 1 tab PO BID [facility] Last Admin: 01/08/18 20:43 Dose: Not Given Sennosides (Senokot) 17.2 mg PO Q12H PRN PRN Reason: Moderate Constipation Temazepam (Restoril) 15 mg PO HS PRN PRN Reason: INSOMNIA Allergies Allergy/AdvReac Type Severity Reaction Status Date / Time acetaminophen Allergy Severe Tachycardia Verified 01/08/18 12:39 throat swelling codeine Allergy Severe Rash Unverified 01/08/18 12:39 propoxyphene Allergy Severe Nausea/Vomi Unverified 01/08/18 12:39 ting Home Medications Medication Instructions Recorded Confirmed Type amlodipine 10 mg PO DAILY 01/08/18 01/08/18 History atenolol [Tenormin] 25 mg PO DAILY 01/08/18 01/08/18 History atorvastatin [Lipitor] 80 mg PO HS 01/08/18 01/08/18 History clopidogrel [Plavix] 75 mg PO DAILY 01/08/18 01/08/18 History furosemide [Lasix] 40 mg PO DAILY 01/08/18 01/08/18 History gabapentin 100 mg PO HS 01/08/18 01/08/18 History glipizide 5 mg PO DAILY 01/08/18 01/08/18 History hydrochlorothiazide 25 mg PO DAILY 01/08/18 01/08/18 History metoprolol succinate 50 mg PO DAILY 01/08/18 01/08/18 History oxycodone-acetaminophen [Percocet] 1 tab PO BID PRN 01/08/18 01/08/18 History warfarin [Coumadin] 1 mg PO DAILY 01/08/18 01/08/18 History Exam Vital signs: Vital Signs 01/08/18 10:59 01/08/18 12:37 01/08/18 16:09 Temperature 98.6 F Pulse Rate 60 61 76 Respiratory Rate 16 18 21 Blood Pressure 126/59 L 155/64 H 155/69 H Pulse Oximetry 98 99 97 01/08/18 18:29 01/08/18 20:00 01/09/18 00:00 Temperature 100 F H 101.5 F H Pulse Rate 66 75 94 H Respiratory Rate 14 18 18 Blood Pressure 155/82 H 151/83 H 160/67 H Pulse Oximetry 97 94 L 01/09/18 04:00 01/09/18 08:00 Temperature 97.7 F 98.4 F Pulse Rate 80 62 Respiratory Rate 16 18 Blood Pressure 132/86 174/75 H Pulse Oximetry 99 98 Intake & Output 01/08/18 01/09/18 01/09/18 18:59 06:59 18:59 Output Total 500 / 500 Balance -500 / -500 Weight 77.111 kg Output: Urine 500 / 500 - Constitutional no acute distress - Routine HEENT Exam Eye: Present: PERRL ENT: Present: mucous membranes moist - Routine Neck Exam Present: supple - Routine Cardiovascular Exam Present: S1, S2 - Routine Abdominal Exam Present: soft, normoactive bowel sounds - Routine Skin Exam Present: erythema, dry, warm Comments: Reddness to RLE, Some small blisters noted - Routine Neurological Exam Present: alert Results - Labs Result diagrams: 01/09/18 04:56 01/09/18 04:56 Abnormal lab results 01/08/18 01/08/18 01/08/18 Range/Units 12:40 13:00 13:00 WBC 16.5 H (4.0-11.0) th/mm3 RBC 4.44 L (4.50-5.90) mil/mm3 Hgb 11.0 L (13.0-17.0) gm/dL Hct 33.7 L (39.0-51.0) % MCV 75.8 L (80.0-100.0) fL MCH 24.8 L (27.0-34.0) pg MCHC (32.0-36.0) % Neut % (Auto) 85.3 H (16.0-70.0) % Lymph % (Auto) 5.0 L (9.0-44.0) % [place] % (Auto) 9.5 H (0.0-8.0) % Neut # (Auto) 14.1 H (1.8-7.7) th/mm3 Lymph # (Auto) 0.8 L (1.0-4.8) th/mm3 [place] # (Auto) 1.6 H (0.0-0.9) th/mm3 BUN 39 H (7-18) mg/dL Creatinine 1.55 H (0.60-1.30) mg/dL Estimated GFR 45 L (>89) mL/min POC Glucose 256 H (68-110) mg/dl Random Glucose 224 H (74-106) mg/dL Calcium 8.3 L (8.5-10.1) mg/dL Alkaline Phosphatase 122 H (45-117) U/L Albumin 2.1 L (3.4-5.0) g/dL 01/08/18 01/09/18 01/09/18 Range/Units 20:41 02:13 04:56 WBC 12.9 H (4.0-11.0) th/mm3 RBC 4.17 L (4.50-5.90) mil/mm3 Hgb 10.0 L (13.0-17.0) gm/dL Hct 31.7 L (39.0-51.0) % MCV 76.1 L (80.0-100.0) fL MCH 23.9 L (27.0-34.0) pg MCHC 31.4 L (32.0-36.0) % Neut % (Auto) 84.3 H (16.0-70.0) % Lymph % (Auto) 5.0 L (9.0-44.0) % [place] % (Auto) 10.4 H (0.0-8.0) % Neut # (Auto) 10.9 H (1.8-7.7) th/mm3 Lymph # (Auto) 0.6 L (1.0-4.8) th/mm3 [place] # (Auto) 1.4 H (0.0-0.9) th/mm3 BUN (7-18) mg/dL Creatinine (0.60-1.30) mg/dL Estimated GFR (>89) mL/min POC Glucose 225 H 217 H (68-110) mg/dl Random Glucose (74-106) mg/dL Calcium (8.5-10.1) mg/dL Alkaline Phosphatase (45-117) U/L Albumin (3.4-5.0) g/dL 01/09/18 01/09/18 Range/Units 04:56 07:25 WBC (4.0-11.0) th/mm3 RBC (4.50-5.90) mil/mm3 Hgb (13.0-17.0) gm/dL Hct (39.0-51.0) % MCV (80.0-100.0) fL MCH (27.0-34.0) pg MCHC (32.0-36.0) % Neut % (Auto) (16.0-70.0) % Lymph % (Auto) (9.0-44.0) % [place] % (Auto) (0.0-8.0) % Neut # (Auto) (1.8-7.7) th/mm3 Lymph # (Auto) (1.0-4.8) th/mm3 [place] # (Auto) (0.0-0.9) th/mm3 BUN 34 H (7-18) mg/dL Creatinine (0.60-1.30) mg/dL Estimated GFR 59 L (>89) mL/min POC Glucose 217 H (68-110) mg/dl Random Glucose 234 H (74-106) mg/dL Calcium 8.1 L (8.5-10.1) mg/dL Alkaline Phosphatase (45-117) U/L Albumin (3.4-5.0) g/dL Short CBC 01/08/18 01/09/18 Range/Units 13:00 04:56 WBC 16.5 H 12.9 H (4.0-11.0) th/mm3 Hgb 11.0 L 10.0 L (13.0-17.0) gm/dL Hct 33.7 L 31.7 L (39.0-51.0) % Plt Count 292 277 (150-450) th/mm3 BMP 01/08/18 01/09/18 13:00 04:56 Sodium 136 138 Potassium 4.1 4.1 Chloride 102 105 Carbon Dioxide 26.5 27.1 BUN 39 H 34 H Creatinine 1.55 H 1.21 Calcium 8.3 L 8.1 L Liver Function 01/08/18 Range/Units 13:00 Total Bilirubin 0.4 (0.2-1.0) mg/dL AST 22 (15-37) U/L ALT 19 (12-78) U/L Alkaline Phosphatase 122 H (45-117) U/L Albumin 2.1 L (3.4-5.0) g/dL Caprini VTE Risk Assessment Caprini VTE Risk Assessment: Moderate/High Risk (score >= 2) Caprini Risk Assessment Model: Point Value = 1 Point Value = 2 Point Value = 3 Point Value = 5 Age 41-60 Minor surgery BMI > 25 kg/m2 Swollen legs Varicose veins or History of unexplained or recurrent spontaneous Oral contraceptives or hormone replacement Sepsis (< 1 month) Serious lung disease, including pneumonia (< 1 month) Abnormal pulmonary function Acute myocardial infarction Congestive heart failure (< 1 month) History of inflammatory bowel disease Medical patient at bed rest Age 61-74 Arthroscopic surgery Major open surgery (> 45 min) Laparoscopic surgery (> 45 min) Malignancy Confined to bed (> 72 hours) Immobilizing plaster cast Central venous access Age >= 75 History of VTE Family history of VTE Factor V Leiden Prothrombin [id number] Lupus anticoagulant Anticardiolipin antibodies Elevated serum homocysteine Heparin-induced thrombocytopenia Other congenital or acquired thrombophilia Stroke (< 1 month) Elective arthroplasty Hip, pelvis, or leg fracture Acute spinal cord injury (< 1 month) Prophylaxis Regimen: Total Risk Factor Score Risk Level Prophylaxis Regimen 0-1 Low Early ambulation 2 Moderate Order ONE of the following: *Sequential Compression Device (SCD) *Heparin 5000 units SQ BID 3-4 Higher Order ONE of the following medications: *Heparin 5000 units SQ TID *Enoxaparin/Lovenox 40 mg SQ daily (WT < 150 kg, CrCl > 30 mL/min) *Enoxaparin/Lovenox 30 mg SQ daily (WT < 150 kg, CrCl > 10-29 mL/min) *Enoxaparin/Lovenox 30 mg SQ BID (WT < 150 kg, CrCl > 30 mL/min) AND/OR *Sequential Compression Device (SCD) 5 or more Highest Order ONE of the following medications: *Heparin 5000 units SQ TID (Preferred with Epidurals) *Enoxaparin/Lovenox 40 mg SQ daily (WT < 150 kg, CrCl > 30 mL/min) *Enoxaparin/Lovenox 30 mg SQ daily (WT < 150 kg, CrCl > 10-29 mL/min) *Enoxaparin/Lovenox 30 mg SQ BID (WT < 150 kg, CrCl > 30 mL/min) AND *Sequential Compression Device (SCD) Assessment and Plan - Assessment (1) Diabetic infection of right foot Code(s): E11.628 - Type 2 diabetes mellitus with other skin complications; L08.9 - Local infection of the skin and subcutaneous tissue, unspecified Status: Acute Plan: IV vanoc, Pharmacy ID consult for further recommendations. (2) Diabetes Code(s): E11.9 - Type 2 diabetes mellitus without complications Status: Acute Plan: Monitor BS, Cont home medications. (3) HTN (hypertension) Code(s): I10 - Essential (primary) hypertension Status: Acute Plan: Cont home medications, Titrate as needed (4) COPD (chronic obstructive pulmonary disease) Code(s): J44.9 - Chronic obstructive pulmonary disease, unspecified Status: Acute (5) Blood coagulation disorder Code(s): D68.9 - Coagulation defect, unspecified Status: Acute Plan: On Coumadin, cont home medications. Monitor INR - Assessment and Plan Stable at baseline Monitor Sat's maintained on room air H&P: Quality - VTE Deep Vein Thrombosis/Pulmonary Embolism Present on Admission: No (2) Diabetes Qualifiers: Diabetes mellitus type: type 2 Diabetes mellitus complication status: with skin complications
[2018-01-09] MEDS: amLODIPine 10 MG Tablet PO SCH (10:20)
[2018-01-09] MEDS: glipiZIDE 5 MG Tablet PO SCH (10:21)
[2018-01-09] MEDS: hydroCHLOROthiazide 25 MG Tablet PO SCH (10:21)
[2018-01-09] MEDS: Furosemide 40 MG Tablet PO SCH (10:21)
[2018-01-09] MEDS: Senna/Docusate Sodium 8.6/50 MG Tablet PO SCH ×2 (10:22→21:17)
[2018-01-09] MEDS: Insulin NovoLIN Regular Correctional Sugar Inj SQ SCH ×4 (10:22→21:16)
[2018-01-09] MEDS: Enoxaparin Inj 40 MG/0.4 ML Syringe SQ SCH (10:53)
[2018-01-09 12:12] LABS: INR 1.1 Ratio
[2018-01-09] MEDS: Vancomycin Inj 1,250 MG in Sodium Chlor 0.9% Inj 250 ML IV.SIG SCH (13:38)
[2018-01-09] MEDS: Gabapentin 100 MG Capsule PO SCH (21:16)
[2018-01-09] MEDS: Temazepam 15 MG Capsule PO PRN (21:18)
[2018-01-10] MEDS: Acetaminophen 325 MG Tablet PO PRN ×3 (01:34→12:47)
[2018-01-10] MEDS: Vancomycin Inj 1,250 MG in Sodium Chlor 0.9% Inj 250 ML IV.SIG SCH (06:00)
[2018-01-10 07:23] LABS: INR 1.1 Ratio; Prothrombin Time 10.8 sec (9.8-11.6)
[2018-01-10] MEDS: glipiZIDE 5 MG Tablet PO SCH (08:30)
[2018-01-10] MEDS: amLODIPine 10 MG Tablet PO SCH (08:30)
[2018-01-10] MEDS: Furosemide 40 MG Tablet PO SCH (08:30)
[2018-01-10] MEDS: Senna/Docusate Sodium 8.6/50 MG Tablet PO SCH ×2 (08:30→22:01)
[2018-01-10] MEDS: hydroCHLOROthiazide 25 MG Tablet PO SCH (08:30)
[2018-01-10] MEDS: Enoxaparin Inj 40 MG/0.4 ML Syringe SQ SCH (08:31)
[2018-01-10] MEDS: Insulin NovoLIN Regular Correctional Sugar Inj SQ SCH ×4 (08:31→22:12)
--- NOTE | 2018-01-10 11:02 | P.PNFP ---
Subjective Interval history: Slept well Foot not as painful Denies Cp, SOB Results - Labs Result diagrams: 01/09/18 04:56 01/09/18 04:56 Abnormal lab results 01/09/18 01/09/18 01/09/18 Range/Units 10:56 16:34 21:14 POC Glucose 348 H 262 H 142 H (68-110) mg/dl 01/10/18 Range/Units 08:01 POC Glucose 161 H (68-110) mg/dl Physical Exam Vital signs: Vital Signs 01/09/18 12:00 01/09/18 16:00 01/09/18 20:00 Temperature 98.0 F 98.3 F 100.2 F H Pulse Rate 63 68 68 Respiratory Rate 18 18 18 Blood Pressure 150/69 H 147/67 H 153/66 H Pulse Oximetry 97 99 96 01/10/18 00:00 01/10/18 04:00 01/10/18 06:00 Temperature 99.2 F 98.2 F Pulse Rate 66 62 68 Respiratory Rate 20 18 Blood Pressure 163/70 H 172/73 H 161/70 H Pulse Oximetry 96 96 01/10/18 08:00 Temperature 98.4 F Pulse Rate 59 L Respiratory Rate 20 Blood Pressure 167/76 H Pulse Oximetry 99 Intake & Output 01/09/18 01/10/18 01/10/18 18:59 06:59 18:59 Intake Total 702.5 / 702.5 240 / 240 262.5 / 262.5 Output Total 1300 / 1300 800 / 800 Balance -597.5 / -597.5 -560 / -560 262.5 / 262.5 Intake: IV 262.5 / 262.5 262.5 / 262.5 Vancomycin Inj 1,250 MG In NS 262.5 / 262.5 262.5 / 262.5 Inj 250 ML @ 250 mls/hr IV.SIG Q18H [facility] Rx#:[id number] Oral 440 / 440 240 / 240 Output: Urine 1300 / 1300 800 / 800 Other: # Voids 2 Date of Last Bowel Movement 01/07/18 01/10/18 # Bowel Movements 0 # Incontinent Bowel Movements 2 - Constitutional no acute distress - Routine HEENT Exam Head: Present: normocephalic Eye: Present: PERRL ENT: Present: mucous membranes moist - Routine Neck Exam Present: supple - Routine Respiratory Exam Present: CTA bilaterally - Routine Cardiovascular Exam Present: S1, S2 - Routine Abdominal Exam Present: soft, normoactive bowel sounds - Routine Exam Groin: Present: erythema (RLE) - Routine Extremities Exam Present: edema Comments: RLE - Routine Skin Exam Present: erythema Assessment and Plan - Assessment (1) Diabetic infection of right foot Code(s): E11.628 - Type 2 diabetes mellitus with other skin complications; L08.9 - Local infection of the skin and subcutaneous tissue, unspecified Status: Acute Plan: IV vanoc, Pharmacy ID consult for further recommendations. (2) Diabetes Code(s): E11.9 - Type 2 diabetes mellitus without complications Status: Acute Plan: Monitor BS, Cont home medications. (3) HTN (hypertension) Code(s): I10 - Essential (primary) hypertension Status: Acute Plan: Cont home medications, Titrate as needed (4) COPD (chronic obstructive pulmonary disease) Code(s): J44.9 - Chronic obstructive pulmonary disease, unspecified Status: Acute Plan: Stable on room air, cont to monitor (5) Blood coagulation disorder Code(s): D68.9 - Coagulation defect, unspecified Status: Acute Plan: On Coumadin, cont home medications. Monitor INR - Assessment and Plan 01/10/18- Uneventful night reported.Foot looks better today not quite as red. Patient voices pain has decreased. INR 1.1, he is bridged with lovenox for Coagulation disorder. Will increase Coumadin. Cont to monitor Will DC to SNF on Iv antibiotics once arrangement made, PT eval today. (2) Diabetes Qualifiers: Diabetes mellitus type: type 2 Diabetes mellitus complication status: with skin complications
--- NOTE | 2018-01-10 12:57 | P.CONID ---
History of Present Illness Service: Infectious disease Consult date: 01/10/18 Requesting Physician: Frederic Vincent Reason for Consult: Evaluate patient with cellulitis RLE Primary Care Provider: Reza Del Rio MD Family Provider: Frederic Vincent DO Chief Complaint: Presents with pain and reddness ot RLE. History of Present Illness: Patient seen and examined. Records reviewed. Patient is not a very good historian Patient is a 72-year-old male, brought into the hospital for further evaluation of pain, redness on his right lower extremity. Patient lives by himself. He seemed that he noted itching on his right foot about a week prior to admission. He started scratching, and about several days after he noticed it he started developing redness on his right foot. It progressively worsened. He was seen by his pain doctor about 5 days prior to admission, and it is unclear what kind of medication was given to the patient. He has not any fever chills or sweats. He had fallen one time, but could not remember whether he had a wound or scrape that resulted from that fall. The redness started getting worse, and he was getting more pain so he was brought into the hospital for further evaluation and treatment. His initial white count was 16,000. He has had low- grade temps of about 100. Infectious disease consultation has been requested to evaluate the patient. Review of Systems Constitutional: Denies chills, Denies fever(s) Eyes: Denies discharge, Denies dry eyes Ears, Nose, Mouth, and Throat: Denies difficulty swallowing, Denies ear pain, Denies mouth pain, Denies nasal discharge, Denies sore throat Cardiovascular: Denies chest pain, Denies shortness of breath Respiratory: Denies chest congestion, Denies cough Gastrointestinal: Denies abdominal pain, Denies loose stools, Denies nausea, Denies vomiting Genitourinary: Denies painful urination Musculoskeletal: Reports joint pain Skin/Breast: Reports redness, Denies rash Neurologic: Denies localized weakness PMFSH - History History Provided By: Patient - Medical History Medical History: Medical History (Last Updated 01/10/18 @ 12:58 by Bri Landry MD) COPD (chronic obstructive pulmonary disease) Diabetes Heart attack Hypertension Osteomyelitis of ankle - Surgical History Surgical History: Surgical History (Last Reviewed 01/10/18 @ 12:58 by Bri Landry MD) H/O heart artery stent - Tobacco History Second Hand Smoke Exposure: No Tobacco Use In Past 30 Days: Yes Smoking Status: Former smoker Tobacco Type: Cigarettes - Alcohol History How Often Do You Have a Drink Containing Alcohol: Never - Substance Use History Substance History: No History of Abuse - Travel History Recent Travel in the [place] Within the Last 8 Weeks: No Recent Travel Out of the Country Within the Last 8 Weeks: No - Immunization History Tetanus Immunization: Unsure Hx Influenza Vaccine This Season: No Medications and Allergies Active Medications: Active Medications Acetaminophen (Tylenol) 650 mg PO Q4H PRN PRN Reason: PAIN AND FEVER Last Admin: 01/10/18 12:47 Dose: 650 mg Al Hydroxide/Mg Hydroxide (Milk Of Magnjulian Liq) 30 ml PO Q12H PRN PRN Reason: Mild Constipation Amlodipine Besylate (Norvasc) 10 mg PO DAILY [facility] Last Admin: 01/10/18 08:30 Dose: 10 mg Atorvastatin Calcium (Lipitor) 80 mg PO HS [facility] Last Admin: 01/09/18 21:16 Dose: 80 mg Bisacodyl (Dulcolax Supp) 10 mg RECTAL DAILY PRN PRN Reason: SEVERE CONSITIPATION Clopidogrel Bisulfate (Plavix) 75 mg PO DAILY [facility] Last Admin: 01/10/18 08:31 Dose: 75 mg Dextrose (D50w Vial) 50 ml IV.PUSH UNSCH PRN PRN Reason: PER HYPOGLYCEMIA PROTOCOL Enoxaparin Sodium (Lovenox Inj) 40 mg SQ DAILY [facility] Last Admin: 01/10/18 08:31 Dose: 40 mg Furosemide (Lasix) 40 mg PO DAILY [facility] Last Admin: 01/10/18 08:30 Dose: 40 mg Gabapentin (Neurontin) 100 mg PO HS [facility] Last Admin: 01/09/18 21:16 Dose: 100 mg Glipizide (Glucotrol) 5 mg PO DAILY [facility] Last Admin: 01/10/18 08:30 Dose: 5 mg Glucagon (Glucagon Inj) 1 mg OTHER PRN PRN PRN Reason: for Hypoglycemia Protocol Hydrochlorothiazide (Hydrodiuril) 25 mg PO DAILY [facility] Last Admin: 01/10/18 08:30 Dose: 25 mg Pharmacy Profile Note (Vancomycin Consult Pharmacy) mls @ 0 mls/hr OTHER UNSCH [facility] Vancomycin HCl 1,250 mg/ (Sodium Chloride) 262.5 mls @ 250 mls/hr IV.SIG Q18H [facility] Last Infusion: 01/10/18 08:30 Dose: Infused Insulin Human Regular (Novolin R Correctional Sugar Inj) 0 units SQ ACHS [facility]; Protocol Last Admin: 01/10/18 12:48 Dose: 3 units Lactulose (Lactulose Liq) 30 ml PO DAILY PRN PRN Reason: SEVERE CONSITIPATION Last Admin: 01/09/18 17:01 Dose: 30 ml Levofloxacin (Levaquin) 750 mg PO Q48H [facility] Miscellaneous Information ([facility] Ordered Lab Info) 0 each OTHER ONCE ONE Stop: 01/11/18 17:46 Senna/Docusate Sodium (Kate-Colace) 1 tab PO BID [facility] Last Admin: 01/10/18 08:30 Dose: 1 tab Sennosides (Senokot) 17.2 mg PO Q12H PRN PRN Reason: Moderate Constipation Last Admin: 01/09/18 21:17 Dose: 17.2 mg Temazepam (Restoril) 15 mg PO HS PRN PRN Reason: INSOMNIA Last Admin: 01/09/18 21:18 Dose: 15 mg Warfarin Sodium (Coumadin) 5 mg PO DAILY@1600 [facility] Allergies Allergy/AdvReac Type Severity Reaction Status Date / Time acetaminophen Allergy Severe Tachycardia Verified 01/08/18 12:39 throat swelling codeine Allergy Severe Rash Verified 01/10/18 12:45 propoxyphene Allergy Severe Nausea/Vomi Verified 01/10/18 12:45 ting Home Medications Medication Instructions Recorded Confirmed Type amlodipine 10 mg PO DAILY 01/08/18 01/08/18 History atenolol [Tenormin] 25 mg PO DAILY 01/08/18 01/08/18 History atorvastatin [Lipitor] 80 mg PO HS 01/08/18 01/08/18 History clopidogrel [Plavix] 75 mg PO DAILY 01/08/18 01/08/18 History furosemide [Lasix] 40 mg PO DAILY 01/08/18 01/08/18 History gabapentin 100 mg PO HS 01/08/18 01/08/18 History glipizide 5 mg PO DAILY 01/08/18 01/08/18 History hydrochlorothiazide 25 mg PO DAILY 01/08/18 01/08/18 History metoprolol succinate 50 mg PO DAILY 01/08/18 01/08/18 History oxycodone-acetaminophen [Percocet] 1 tab PO BID PRN 01/08/18 01/08/18 History warfarin [Coumadin] 1 mg PO DAILY 01/08/18 01/08/18 History Exam Vital signs: Vital Signs 01/09/18 16:00 01/09/18 20:00 01/10/18 00:00 Temperature 98.3 F 100.2 F H 99.2 F Pulse Rate 68 68 66 Respiratory Rate 18 18 20 Blood Pressure 147/67 H 153/66 H 163/70 H Pulse Oximetry 99 96 96 01/10/18 04:00 01/10/18 06:00 01/10/18 08:00 Temperature 98.2 F 98.4 F Pulse Rate 62 68 59 L Respiratory Rate 18 20 Blood Pressure 172/73 H 161/70 H 167/76 H Pulse Oximetry 96 99 Intake & Output 01/09/18 01/10/18 01/10/18 18:59 06:59 18:59 Intake Total 702.5 / 702.5 240 / 240 262.5 / 262.5 Output Total 1300 / 1300 800 / 800 Balance -597.5 / -597.5 -560 / -560 262.5 / 262.5 Intake: IV 262.5 / 262.5 262.5 / 262.5 Vancomycin Inj 1,250 MG In NS 262.5 / 262.5 262.5 / 262.5 Inj 250 ML @ 250 mls/hr IV.SIG Q18H [facility] Rx#:[id number] Oral 440 / 440 240 / 240 Output: Urine 1300 / 1300 800 / 800 Other: # Voids 2 Date of Last Bowel Movement 01/07/18 01/10/18 # Bowel Movements 0 # Incontinent Bowel Movements 2 Narrative: Physical Examination GENERAL: Patient is a well-nourished, well-developed male, awake and alert, not in respiratory distress. SKIN: Warm and dry. No generalized rash and no evidence of embolic lesions. HEAD: Atraumatic. Normocephalic. No temporal wasting, or tenderness. EYES: [place] conjunctiva. No petechia or hemorrhage. Pupils equal, round and reactive to light. Extraocular movements full and intact. No scleral icterus. No injection or drainage. EARS, NOSE AND THROAT: Nose without bleeding or purulent nasal discharge. No sinus tenderness. Mucous membranes pink and moist. No oral lesions noted. No exudate. No oral thrush. NECK: Trachea midline. Supple and not tender, no meningeal signs CARDIOVASCULAR: Regular rate and rhythm. No murmurs, rubs or gallops heard RESPIRATORY: Clear to auscultation. Breath sounds equal bilaterally. No rales , wheezing or rhonchi ABDOMEN: Soft, non-tender, nondistended. Bowel sounds present and normoactive. No guarding. No rebound. No organomegaly. EXTREMITIES: No clubbing, cyanosis. RLE is larger than LLE. There is erythema on his R foot going up to his R leg; there is an ulcer on anteromedial ankle that is about 1 inch diameter with some serous drainage. There is a purplish blister on one of his toes, has edema on his R foot and he is tender on touching his RLE. No odor noted. His L foot is cool, but no cyanosis or discoloration. No calf tenderness. Well perfused and warm. NEUROLOGICAL: Awake and alert. Cranial nerves grossly intact. Motor grossly within normal limits. PSYCHIATRIC: Normal affect, calm and cooperative. LINE: No evidence of infection Results - Labs CBC & Chem 7: 01/09/18 04:56 01/09/18 04:56 Labs: Laboratory Results - last 24 hr 01/09/18 01/09/18 01/10/18 16:34 21:14 06:09 PT 10.8 INR 1.1 POC Glucose 262 H 142 H 01/10/18 01/10/18 08:01 12:12 PT INR POC Glucose 161 H 243 H Assessment and Plan - Plan Impression Cellulitis RLE (foot and leg), possibly entry is wound on his ankle Possible sepsis due to cellulitis RLE ?PVD RLE Known DM Previous Rx osteo L ankle, looks resolved clinically CAD, previous NM, and coronary artery stenting Recommendation Get 2 BC Get wound C/S Check vascular status RLE Continue IV vanco Add Cipro Get podiatry evaluation Wound care Follow C/S Monitor progress Will determine course of RX once work up is completed I will follow along with you Thank you for this consultation
[2018-01-10] MEDS: levoFLOXacin 750 MG Tablet PO SCH (15:45)
--- NOTE | 2018-01-10 19:28 | P.CON ---
History of Present Illness Service: Foot and ankle surgery/podiatry Consult date: 01/10/18 Reason for Consult: Right lower extremity cellulitis Primary Care Provider: Reza Del Rio MD Family Provider: Frederic Vincent DO Chief Complaint: Presents with pain and reddness ot RLE. History of Present Illness: Podiatry consulted for this 72-year-old male brought in for evaluation of pain and redness to his right lower extremity. Patient states he lives by himself and he noted symptoms of itching on his foot that dates back to about a week ago. He does admit to scratching his right lower extremity. Patient denies any nausea vomiting fevers at this point. Reports tenderness and pain to right lower extremity. Review of Systems All other systems reviewed negative except as stated in HPI PMFSH - History History Provided By: Patient - Medical History Medical History: Medical History (Last Reviewed 01/10/18 @ 21:13 by Alba Valdez DPM) COPD (chronic obstructive pulmonary disease) Diabetes Heart attack Hypertension Osteomyelitis of ankle - Surgical History Surgical History: Surgical History (Last Reviewed 01/10/18 @ 21:13 by Alba Valdez DPM) H/O heart artery stent - Tobacco History Second Hand Smoke Exposure: No Tobacco Use In Past 30 Days: Yes Smoking Status: Former smoker Tobacco Type: Cigarettes - Alcohol History How Often Do You Have a Drink Containing Alcohol: Never - Substance Use History Substance History: No History of Abuse - Travel History Recent Travel in the [place] Within the Last 8 Weeks: No Recent Travel Out of the Country Within the Last 8 Weeks: No - Immunization History Tetanus Immunization: Unsure Hx Influenza Vaccine This Season: No Medications and Allergies Active Medications: Active Medications Acetaminophen (Tylenol) 650 mg PO Q4H PRN PRN Reason: PAIN AND FEVER Last Admin: 01/10/18 12:47 Dose: 650 mg Al Hydroxide/Mg Hydroxide (Milk Of Magnesia Liq) 30 ml PO Q12H PRN PRN Reason: Mild Constipation Amlodipine Besylate (Norvasc) 10 mg PO DAILY [facility] Last Admin: 01/10/18 08:30 Dose: 10 mg Atorvastatin Calcium (Lipitor) 80 mg PO HS [facility] Last Admin: 01/09/18 21:16 Dose: 80 mg Bisacodyl (Dulcolax Supp) 10 mg RECTAL DAILY PRN PRN Reason: SEVERE CONSITIPATION Clopidogrel Bisulfate (Plavix) 75 mg PO DAILY [facility] Last Admin: 01/10/18 08:31 Dose: 75 mg Dextrose (D50w Vial) 50 ml IV.PUSH UNSCH PRN PRN Reason: PER HYPOGLYCEMIA PROTOCOL Enoxaparin Sodium (Lovenox Inj) 40 mg SQ DAILY [facility] Last Admin: 01/10/18 08:31 Dose: 40 mg Furosemide (Lasix) 40 mg PO DAILY [facility] Last Admin: 01/10/18 08:30 Dose: 40 mg Gabapentin (Neurontin) 100 mg PO HS [facility] Last Admin: 01/09/18 21:16 Dose: 100 mg Glipizide (Glucotrol) 5 mg PO DAILY [facility] Last Admin: 01/10/18 08:30 Dose: 5 mg Glucagon (Glucagon Inj) 1 mg OTHER PRN PRN PRN Reason: for Hypoglycemia Protocol Hydrochlorothiazide (Hydrodiuril) 25 mg PO DAILY [facility] Last Admin: 01/10/18 08:30 Dose: 25 mg Pharmacy Profile Note (Vancomycin Consult Pharmacy) mls @ 0 mls/hr OTHER UNSCH [facility] Vancomycin HCl 1,250 mg/ (Sodium Chloride) 262.5 mls @ 250 mls/hr IV.SIG Q18H [facility] Last Infusion: 01/10/18 08:30 Dose: Infused Insulin Human Regular (Novolin R Correctional Sugar Inj) 0 units SQ ACHS [facility]; Protocol Last Admin: 01/10/18 18:07 Dose: 3 units Lactulose (Lactulose Liq) 30 ml PO DAILY PRN PRN Reason: SEVERE CONSITIPATION Last Admin: 01/09/18 17:01 Dose: 30 ml Levofloxacin (Levaquin) 750 mg PO Q48H [facility] Last Admin: 01/10/18 15:45 Dose: 750 mg Miscellaneous Information ([facility] [place] [facility] Ordered Lab Info) 0 each OTHER ONCE ONE Stop: 01/11/18 17:46 Senna/Docusate Sodium (Kate-Colace) 1 tab PO BID [facility] Last Admin: 01/10/18 08:30 Dose: 1 tab Sennosides (Senokot) 17.2 mg PO Q12H PRN PRN Reason: Moderate Constipation Last Admin: 01/09/18 21:17 Dose: 17.2 mg Temazepam (Restoril) 15 mg PO HS PRN PRN Reason: INSOMNIA Last Admin: 01/09/18 21:18 Dose: 15 mg Warfarin Sodium (Coumadin) 5 mg PO DAILY@1600 [facility] Last Admin: 01/10/18 15:45 Dose: 5 mg Allergies Allergy/AdvReac Type Severity Reaction Status Date / Time acetaminophen Allergy Severe Tachycardia Verified 01/08/18 12:39 throat swelling codeine Allergy Severe Rash Verified 01/10/18 12:45 propoxyphene Allergy Severe Nausea/Vomi Verified 01/10/18 12:45 ting Home Medications Medication Instructions Recorded Confirmed Type amlodipine 10 mg PO DAILY 01/08/18 01/08/18 History atenolol [Tenormin] 25 mg PO DAILY 01/08/18 01/08/18 History atorvastatin [Lipitor] 80 mg PO HS 01/08/18 01/08/18 History clopidogrel [Plavix] 75 mg PO DAILY 01/08/18 01/08/18 History furosemide [Lasix] 40 mg PO DAILY 01/08/18 01/08/18 History gabapentin 100 mg PO HS 01/08/18 01/08/18 History glipizide 5 mg PO DAILY 01/08/18 01/08/18 History hydrochlorothiazide 25 mg PO DAILY 01/08/18 01/08/18 History metoprolol succinate 50 mg PO DAILY 01/08/18 01/08/18 History oxycodone-acetaminophen [Percocet] 1 tab PO BID PRN 01/08/18 01/08/18 History warfarin [Coumadin] 1 mg PO DAILY 01/08/18 01/08/18 History Physical Exam Vital signs: Vital Signs 01/09/18 20:00 01/10/18 00:00 01/10/18 04:00 Temperature 100.2 F H 99.2 F 98.2 F Pulse Rate 68 66 62 Respiratory Rate 18 20 18 Blood Pressure 153/66 H 163/70 H 172/73 H Pulse Oximetry 96 96 96 01/10/18 06:00 01/10/18 08:00 01/10/18 12:00 Temperature 98.4 F 99.3 F Pulse Rate 68 59 L 65 Respiratory Rate 20 20 Blood Pressure 161/70 H 167/76 H 157/77 H Pulse Oximetry 99 96 01/10/18 16:00 Temperature 98.7 F Pulse Rate 49 L Respiratory Rate 20 Blood Pressure 160/70 H Pulse Oximetry 92 L Intake & Output 01/10/18 01/10/18 01/11/18 06:59 18:59 06:59 Intake Total 240 / 240 262.5 / 262.5 Output Total 800 / 800 Balance -560 / -560 262.5 / 262.5 Intake: IV 262.5 / 262.5 Vancomycin Inj 1,250 MG In NS 262.5 / 262.5 Inj 250 ML @ 250 mls/hr IV.SIG Q18H [facility] Rx#:[id number] Oral 240 / 240 Output: Urine 800 / 800 Other: Date of Last Bowel Movement 01/10/18 # Incontinent Bowel Movements 2 Narrative: GENERAL: This is a well-nourished, well-developed patient, in no apparent distress. SKIN: HEAD: Atraumatic. EYES: Pupils equal round and reactive. ENT: Airway patent. NECK: Trachea midline. RESPIRATORY: Nonlabored breathing. MUSCULOSKELETAL:. Negative Homans sign bilaterally. NEUROLOGICAL: Awake and alert. Normal speech. Lower extremity physical exam: Vascular: Dorsalis pedis nonpalpable, posterior tibial nonpalpable. Capillary refill time within normal limits to digits 5 bilateral foot. Edema present right lower extremity. Neuro: Gross sensation intact to bilateral lower extremity. Pinpoint sensation decreased. No hyperalgesia noted to bilateral lower extremity Dermatology: Increased erythema and edema noted to right lower extremity extending from digits to tibial tuberosity. Superficial abrasions noted to medial lateral ankle ulcerations. No deep ulcerations noted.. Musculoskeletal: Tender to palpation to right lower extremity globally. Assessment and Plan - Plan 72-year-old male with right lower extremity cellulitis Patient examined evaluated with all questions answered X-rays to right ankle Recommended Xeroform with light Susan and light Rivera, no compression Will place orders for arterial studies and consult vascular if necessary Continue IV antibiotics per infectious disease
--- NOTE | 2018-01-10 21:59 | XR ---
EXAM DATE: 01/10/2018 9:54 PM EDT AGE/SEX: 72 years / Male INDICATIONS: Joint pain. Swelling. Pain from ankle up to knee. No known injury. CLINICAL DATA: This is the patient's initial encounter. Patient reports that signs and symptoms have been present for 1 week and indicates a pain score of 6/10. MEDICAL/SURGICAL HISTORY: None. None. COMPARISON: No prior exams available for comparison. FINDINGS: Bony structures are intact and in normal alignment. Joints are intact without dislocation or signifi cant arthropathy. Osseous density is normal. There is soft tissue prominence. Vascular calcification s are present. No radiopaque foreign bodies seen. There is a small spur off the inferior calcaneus a t the site of attachment of the plantar aponeurosis. CONCLUSION: 1. Soft tissue tissue prominence with no acute fracture or malalignment. 2. Small spur off the inferior calcaneus. Electronically signed by: Alexx Huitron MD 01/10/2018 9:57 PM EDT
[2018-01-10] MEDS: Gabapentin 100 MG Capsule PO SCH (22:01)
[2018-01-11] MEDS: Vancomycin Inj 1,250 MG in Sodium Chlor 0.9% Inj 250 ML IV.SIG SCH ×2 (00:16→20:26)
[2018-01-11] MEDS: Acetaminophen 325 MG Tablet PO PRN (00:16)
[2018-01-11] MEDS: glipiZIDE 5 MG Tablet PO SCH (08:55)
[2018-01-11] MEDS: hydroCHLOROthiazide 25 MG Tablet PO SCH (08:55)
[2018-01-11] MEDS: amLODIPine 10 MG Tablet PO SCH (08:56)
[2018-01-11] MEDS: Furosemide 40 MG Tablet PO SCH (08:56)
[2018-01-11] MEDS: Senna/Docusate Sodium 8.6/50 MG Tablet PO SCH ×2 (08:56→20:26)
[2018-01-11] MEDS: Enoxaparin Inj 40 MG/0.4 ML Syringe SQ SCH (08:56)
[2018-01-11 09:42] LABS: Hematocrit 31.5 % (39.0-51.0); Hemoglobin 10.2 gm/dL (13.0-17.0); Mean Corpuscular HGB Conc 32.4 % (32.0-36.0); Mean Corpuscular Hemoglobin 24.3 pg (27.0-34.0); Mean Corpuscular Volume 74.9 fL (80.0-100.0); Mean Platelet Volume 8.2 fL (7.0-11.0); Platelet Count 406 th/mm3 (150-450); Red Cell Distribution Width 17.1 % (11.6-17.2); White Blood Count 13.3 th/mm3 (4.0-11.0)
[2018-01-11] MEDS: Insulin NovoLIN Regular Correctional Sugar Inj SQ SCH ×4 (09:46→20:50)
[2018-01-11 09:47] LABS: INR 1.1 Ratio; Prothrombin Time 10.9 sec (9.8-11.6)
--- NOTE | 2018-01-11 11:48 | P.PNFP ---
Subjective Interval history: He tells me the foot remains painful and is hopeful for D/C to SNF soon. Results - Labs Result diagrams: 01/11/18 08:50 01/11/18 08:50 Abnormal lab results 01/10/18 01/10/18 01/10/18 Range/Units 12:12 17:35 22:04 WBC (4.0-11.0) th/mm3 RBC (4.50-5.90) mil/mm3 Hgb (13.0-17.0) gm/dL Hct (39.0-51.0) % MCV (80.0-100.0) fL MCH (27.0-34.0) pg Estimated GFR (>89) mL/min POC Glucose 243 H 202 H 249 H (68-110) mg/dl 01/11/18 01/11/18 01/11/18 Range/Units 08:50 08:50 08:54 WBC 13.3 H (4.0-11.0) th/mm3 RBC 4.20 L (4.50-5.90) mil/mm3 Hgb 10.2 L (13.0-17.0) gm/dL Hct 31.5 L (39.0-51.0) % MCV 74.9 L (80.0-100.0) fL MCH 24.3 L (27.0-34.0) pg Estimated GFR 77 L (>89) mL/min POC Glucose 227 H (68-110) mg/dl Short CBC 01/11/18 Range/Units 08:50 WBC 13.3 H (4.0-11.0) th/mm3 Hgb 10.2 L (13.0-17.0) gm/dL Hct 31.5 L (39.0-51.0) % Plt Count 406 D (150-450) th/mm3 BMP 01/11/18 08:50 Creatinine 0.96 - Imaging Impressions Ankle X-Ray 01/10/18 00:00 CONCLUSION: 1. Soft tissue tissue prominence with no acute fracture or malalignment. 2. Small spur off the inferior calcaneus. Physical Exam Vital signs: Vital Signs 01/10/18 12:00 01/10/18 16:00 01/10/18 20:00 Temperature 99.3 F 98.7 F 98.8 F Pulse Rate 65 49 L 87 Respiratory Rate 20 20 22 Blood Pressure 157/77 H 160/70 H 156/70 H Pulse Oximetry 96 92 L 99 01/11/18 00:00 01/11/18 01:30 01/11/18 04:00 Temperature 101.1 F H 99.4 F 98 F Pulse Rate 73 60 Respiratory Rate 18 18 Blood Pressure 155/70 H 178/70 H Pulse Oximetry 97 97 01/11/18 05:15 01/11/18 08:00 Temperature 99 F Pulse Rate 60 Respiratory Rate 20 Blood Pressure 161/73 H 148/67 H Pulse Oximetry 98 Intake & Output 01/10/18 01/11/18 01/11/18 18:59 06:59 18:59 Intake Total 262.5 / 262.5 622.5 / 622.5 Output Total 600 / 600 950 / 950 400 / 400 Balance -337.5 / -337.5 -327.5 / -327.5 -400 / -400 Intake: IV 262.5 / 262.5 262.5 / 262.5 Vancomycin Inj 1,250 MG In NS 262.5 / 262.5 262.5 / 262.5 Inj 250 ML @ 250 mls/hr IV.SIG Q18H [facility] Rx#:[id number] Oral 360 / 360 Output: Urine 600 / 600 950 / 950 400 / 400 Other: Date of Last Bowel Movement 01/10/18 01/10/18 - Constitutional no acute distress - Routine HEENT Exam Head: Present: normocephalic Eye: Present: PERRL, normal accommodation - Routine Neck Exam Present: supple, full ROM - Routine Respiratory Exam Present: CTA bilaterally - Routine Cardiovascular Exam Present: RRR, S1, S2 - Routine Abdominal Exam Present: soft, normoactive bowel sounds - Routine Extremities Exam Comments: dressing intact right foot. - Routine Skin Exam Present: intact - Routine Neurological Exam Present: alert, oriented X3 - Detailed Neurological Exam: Coma Scale Eye Opening: Spontaneous Verbal Response: Oriented Motor Response: Obey commands [place] Coma Scale Total: 15 - Routine Psychiatric Exam Present: normal affect Assessment and Plan - Assessment (1) Diabetic infection of right foot Code(s): E11.628 - Type 2 diabetes mellitus with other skin complications; L08.9 - Local infection of the skin and subcutaneous tissue, unspecified Status: Acute Plan: IV vanc, Pharmacy is dosing Podiatry and ID consult noted. Will get vascular studies per Podiatry and Vas Surg if needed. (2) Diabetes Code(s): E11.9 - Type 2 diabetes mellitus without complications Status: Acute Plan: Monitor BS, Cont home medications. (3) HTN (hypertension) Code(s): I10 - Essential (primary) hypertension Status: Acute Plan: Cont home medications, Titrate as needed (4) COPD (chronic obstructive pulmonary disease) Code(s): J44.9 - Chronic obstructive pulmonary disease, unspecified Status: Acute Plan: Stable on room air, cont to monitor (5) Blood coagulation disorder Code(s): D68.9 - Coagulation defect, unspecified Status: Acute Plan: On Coumadin, cont home medications. Monitor INR - Assessment and Plan 01/10/18- Uneventful night reported.Foot looks better today not quite as red. Patient voices pain has decreased. INR 1.1, he is bridged with lovenox for Coagulation disorder. Will increase Coumadin. Cont to monitor Will DC to SNF on Iv antibiotics once arrangement made, PT eval today. 01/11/18 - Podiatry consult noted. They are obtaining vascular study and will consult Vascular Surgery if needed. He remains on antibiotics per ID recommendation. Will cont to monitor closely and follow daily. (2) Diabetes Qualifiers: Diabetes mellitus type: type 2 Diabetes mellitus complication status: with skin complications
--- NOTE | 2018-01-11 12:36 | ECHRPT ---
EXAM DATE: 01/11/2018 12:31 PM EDT AGE/SEX: 72 years / Male INDICATIONS: Cellulitis and Diabetic Foot Pain CLINICAL DATA: This is the patient's initial encounter. Patient reports that signs and symptoms have been present for 2 weeks and indicates a pain score of 8/10. MEDICAL/SURGICAL HISTORY: . COPD, Diabetes, [place], Hypertension, Osteomyelitis . History of heart artery stent COMPARISON: No prior exams available for comparison. TECHNIQUE: Four-cuff ankle and brachial pressures were obtained. Pulse cuff waveform tracings of the ankles were recorded, and ankle-brachial indices were calculated. PRESSURES (mmHg): Brachial (arm) : RIGHT: 151, LEFT: 145 Ankle : RIGHT: 74, LEFT: 63 CRYSTAL : RIGHT: 0.49, LEFT: 0.42 TBI : RIGHT: 0.15, LEFT: 0.24 FINDINGS: Pulsed-Cuff Waveform: Decreased amplitude, right greater than left. Other: None. CONCLUSION: 1. Findings consistent with moderate to severe bilateral, right greater than left, lower extremity p eripheral arterial disease. 2. There is a large component of small vessel disease. Electronically signed by: Alexander Posada MD 01/11/2018 12:35 PM EDT
--- NOTE | 2018-01-11 14:12 | P.PNVS ---
Subjective Subjective/Hospital Course: Patient seen, full consult dictated Will follow Billie Ryan Objective Vital Signs / I&O: Vital Signs 01/10/18 16:00 01/10/18 20:00 01/11/18 00:00 Temperature 98.7 F 98.8 F 101.1 F H Pulse Rate 49 L 87 73 Respiratory Rate 20 22 18 Blood Pressure 160/70 H 156/70 H 155/70 H Pulse Oximetry 92 L 99 97 01/11/18 01:30 01/11/18 04:00 01/11/18 05:15 Temperature 99.4 F 98 F Pulse Rate 60 Respiratory Rate 18 Blood Pressure 178/70 H 161/73 H Pulse Oximetry 97 01/11/18 08:00 01/11/18 12:00 Temperature 99 F 99.1 F Pulse Rate 60 77 Respiratory Rate 20 20 Blood Pressure 148/67 H 181/77 H Pulse Oximetry 98 97 Intake & Output 01/10/18 01/11/18 01/11/18 18:59 06:59 18:59 Intake Total 262.5 / 262.5 622.5 / 622.5 Output Total 600 / 600 950 / 950 400 / 400 Balance -337.5 / -337.5 -327.5 / -327.5 -400 / -400 Intake: IV 262.5 / 262.5 262.5 / 262.5 Vancomycin Inj 1,250 MG In NS 262.5 / 262.5 262.5 / 262.5 Inj 250 ML @ 250 mls/hr IV.SIG Q18H [facility] Rx#:[id number] Oral 360 / 360 Output: Urine 600 / 600 950 / 950 400 / 400 Other: Date of Last Bowel Movement 01/10/18 01/10/18 Laboratory Results - last 24 hr 01/10/18 01/10/18 01/11/18 17:35 22:04 08:50 WBC RBC Hgb Hct MCV MCH MCHC RDW Plt Count MPV PT 10.9 INR 1.1 Creatinine Estimated GFR POC Glucose 202 H 249 H 01/11/18 01/11/18 01/11/18 08:50 08:50 08:54 WBC 13.3 H RBC 4.20 L Hgb 10.2 L Hct 31.5 L MCV 74.9 L MCH 24.3 L MCHC 32.4 RDW 17.1 Plt Count 406 D MPV 8.2 PT INR Creatinine 0.96 Estimated GFR 77 L POC Glucose 227 H 01/11/18 13:27 WBC RBC Hgb Hct MCV MCH MCHC RDW Plt Count MPV PT INR Creatinine Estimated GFR POC Glucose 279 H Microbiology 01/10/18 15:30 Aerobic Blood Culture - Preliminary Blood - Peripheral No growth in 1 day Anaerobic Blood Culture - Preliminary No growth in 1 day 01/10/18 15:25 Aerobic Blood Culture - Preliminary Blood - Peripheral No growth in 1 day Anaerobic Blood Culture - Preliminary No growth in 1 day 01/10/18 15:30 Gram Stain - Final Wound - Ankle Impressions Ankle X-Ray 01/10/18 00:00 CONCLUSION: 1. Soft tissue tissue prominence with no acute fracture or malalignment. 2. Small spur off the inferior calcaneus. Extremity Arterial Study 01/10/18 00:00 CONCLUSION: 1. Findings consistent with moderate to severe bilateral, right greater than left, lower extremity peripheral arterial disease. 2. There is a large component of small vessel disease.
--- NOTE | 2018-01-11 15:16 | P.PNID ---
Subjective Remarks: BEBE Xcover for . is a 72-year-old male, brought into the hospital for further evaluation of pain, redness on his right lower extremity. Patient lives by himself. He seemed that he noted itching on his right foot about a week prior to admission. He started scratching, and about several days after he noticed it he started developing redness on his right foot. It progressively worsened. He was seen by his pain doctor about 5 days prior to admission, and it is unclear what kind of medication was given to the patient. He has not any fever chills or sweats. He had fallen one time, but could not remember whether he had a wound or scrape that resulted from that fall. The redness started getting worse, and he was getting more pain so he was brought into the hospital for further evaluation and treatment. His initial white count was 16,000. He has had low-grade temps of about 100. Infectious disease consultation has been requested to evaluate the patient. Overnight events reviewed. No fever No rash No diarrhea Continues to report some degree of pain as well as discomfort in his leg and foot. Antibiotics: Vanco IV Levaquin Lines: Lines ok Past Medical History: reviewed Allergies/Adverse Reactions: Allergies acetaminophen Allergy (Severe, Verified 01/08/18 12:39) Tachycardia throat swelling Patient given dose had SOB and Tachycardia that passed, previously got dose 12 /9 AM without any reaction, 12/10 AM experienced the SOB and Tachycardia. i asked pt about tylenol allergy and he said he gets throat swelling. codeine Allergy (Severe, Verified 01/10/18 12:45) Rash propoxyphene Allergy (Severe, Verified 01/10/18 12:45) Nausea/Vomiting Objective Vital Signs 01/10/18 16:00 01/10/18 20:00 01/11/18 00:00 Temperature 98.7 F 98.8 F 101.1 F H Pulse Rate 49 L 87 73 Respiratory Rate 20 22 18 Blood Pressure 160/70 H 156/70 H 155/70 H Pulse Oximetry 92 L 99 97 01/11/18 01:30 01/11/18 04:00 01/11/18 05:15 Temperature 99.4 F 98 F Pulse Rate 60 Respiratory Rate 18 Blood Pressure 178/70 H 161/73 H Pulse Oximetry 97 01/11/18 08:00 01/11/18 12:00 Temperature 99 F 99.1 F Pulse Rate 60 77 Respiratory Rate 20 20 Blood Pressure 148/67 H 181/77 H Pulse Oximetry 98 97 Intake & Output 01/10/18 01/11/18 01/11/18 18:59 06:59 18:59 Intake Total 262.5 / 262.5 622.5 / 622.5 Output Total 600 / 600 950 / 950 400 / 400 Balance -337.5 / -337.5 -327.5 / -327.5 -400 / -400 Intake: IV 262.5 / 262.5 262.5 / 262.5 Vancomycin Inj 1,250 MG In NS 262.5 / 262.5 262.5 / 262.5 Inj 250 ML @ 250 mls/hr IV.SIG Q18H [facility] Rx#:[id number] Oral 360 / 360 Output: Urine 600 / 600 950 / 950 400 / 400 Other: Date of Last Bowel Movement 01/10/18 01/10/18 01/10/18 15:30 Wound - Ankle Gram Stain - Final 01/10/18 15:30 Wound - Ankle Wound Culture - Preliminary S. aureus MRSA 01/10/18 15:30 Blood - Peripheral Aerobic Blood Culture - Preliminary No growth in 1 day 01/10/18 15:30 Blood - Peripheral Anaerobic Blood Culture - Preliminary No growth in 1 day 01/10/18 15:25 Blood - Peripheral Aerobic Blood Culture - Preliminary No growth in 1 day 01/10/18 15:25 Blood - Peripheral Anaerobic Blood Culture - Preliminary No growth in 1 day Lab - Hematology Results 01/11/18 08:50 WBC 13.3 H RBC 4.20 L Hgb 10.2 L Hct 31.5 L MCV 74.9 L MCH 24.3 L MCHC 32.4 RDW 17.1 Plt Count 406 D MPV 8.2 Lab - Chemistry Results 01/09/18 01/09/18 01/10/18 16:34 21:14 08:01 Creatinine Estimated GFR POC Glucose 262 H 142 H 161 H 01/10/18 01/10/18 01/10/18 12:12 17:35 22:04 Creatinine Estimated GFR POC Glucose 243 H 202 H 249 H 01/11/18 01/11/18 01/11/18 08:50 08:54 13:27 Creatinine 0.96 Estimated GFR 77 L POC Glucose 227 H 279 H Imaging: ITS Impressions Ankle X-Ray 01/10/18 00:00 CONCLUSION: 1. Soft tissue tissue prominence with no acute fracture or malalignment. 2. Small spur off the inferior calcaneus. Extremity Arterial Study 01/10/18 00:00 CONCLUSION: 1. Findings consistent with moderate to severe bilateral, right greater than left, lower extremity peripheral arterial disease. 2. There is a large component of small vessel disease. Physical Exam: GENERAL: Well-nourished well-developed, not in acute distress SKIN: Cool and dry, no generalized rash HEAD: Atraumatic. Normocephalic. No temporal or scalp tenderness. EYES: Pupils equal round and reactive. Scleral icterus. No injection or drainage. No petechia ENT: Nothing abnormal detected NECK: Trachea midline. Supple, nontender, no meningeal signs. CARDIOVASCULAR: HS audible. RESPIRATORY: Clear to auscultation bilaterally. GASTROINTESTINAL: Abdomen soft nontender. MUSCULOSKELETAL: Right lower extremity and foot with significant erythema. Some degree of wrinkling noted. Overall swelling appears to be less in the areas that the Rivera wrap was on. Still has a blister on the right foot. Foot was not elevated at the time of my visit. Rivera wrap was on at the time of my visit. NEUROLOGICAL: Alert oriented 3. Nonfocal. Psych cooperative IV line sites ok. Assessment and Plan - Plan Impression Cellulitis RLE (foot and leg), possibly entry is wound on his ankle Possible sepsis due to cellulitis RLE ?PVD RLE Known DM Previous Rx osteo L ankle, looks resolved clinically CAD, previous NH, and coronary artery stenting Recommendation Continue IV vanco Continue Levaquin Await vascular input Elevate leg Wound care Follow C/S Monitor progress Dr. Landry to resume care on Saturday, January 13, 2018. If any changes in the interim or worsening please call me sooner.
[2018-01-11] MEDS: Sod Chloride 0.9% Inj 1,000 ML IV.CONT SCH ×2 (16:15→18:55)
--- NOTE | 2018-01-11 16:51 | MB ---
cc: Justice Jolly MD DATE: 01/11/2018 REASON FOR CONSULTATION: Ischemia of both legs, gangrenous inflammation and purulence of the right foot. HISTORY OF PRESENT ILLNESS: This is a 72-year-old gentleman with a very complex medical history including coronary artery disease, diabetes mellitus, hypertension, previous myocardial infarctions, COPD and low cardiac output presents to the hospital with a draining infection of the right foot, swelling, cellulitis of the right foot and into his lower leg, ___ and vascular implications. PAST MEDICAL HISTORY: As above noted is complex. SURGICAL HISTORY: Includes coronary artery angioplasty and stenting. Last year the patient was here for the cardiac problems and he was not deemed to be a candidate for open heart surgery hence the stent. The patient is noncompliant with his care. SOCIAL HISTORY: The patient smokes about half pack of cigarettes a day. Does not drink. PHYSICAL EXAMINATION: GENERAL: Reveals a pleasant 72-year-old gentleman appearing much older than his actual age. HEENT: Normocephalic. No trauma to the head. Pupils are equal, reactive. Extraocular muscles intact. NECK: Supple. Bilateral carotid pulses and bilateral carotid bruits. CHEST: Clear bilateral breath sounds. 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 HEART: Regular rhythm. ABDOMEN: Soft. No rebound, no guarding, no masses. EXTREMITIES: The patient has barely palpable femoral pulses and no distal pulses on palpation. He has dopplerable popliteal pulses bilateral and posterior tibial bilateral, dorsalis pedis neither leg is present. The patient has changes as above noted with cellulitis and some drainage over the right leg and a healing ulcer over the left foot. There are superficial abrasions to the medial and lateral ankles and no ulcerations deeper than that. NEUROLOGIC: The patient is intact. IMPRESSION: This patient has severe peripheral vascular disease, probably an outflow and inflow combination. Clearly below the level of the knee this is more severe. The patient's renal function is marginal. I will hydrate the patient some and will do CTA with runoff. This patient is not a candidate for any major vascular construction, but certainly would be a candidate for some endovascular stenting to improve the flow to the feet. Adherence to the insulin and other medication regimen is paramount. I thank you very much for the referral. Justice Jolly MD SJ/ct/ll , 02:03 PM , 02:11 PM MTDJ Luis
[2018-01-11] MEDS ORDERED: Pharmacy Ordered Lab Info OTHER ONE (17:45)
--- NOTE | 2018-01-11 19:34 | CT ---
EXAM DATE: 01/11/2018 7:21 PM EDT AGE/SEX: 72 years / Male INDICATIONS: PVD bilateral lower extremities with gangrene toes. CLINICAL DATA: This is the patient's initial encounter. Patient reports that signs and symptoms have been present for 3 months and indicates a pain score of 10/10. MEDICAL/SURGICAL HISTORY: Chronic obstructive pulmonary disease. Diabetes mellitus type II. Hyper tension. Osteomyelitis. . Stent. RADIATION DOSE: 3.63 CTDI (mGy) COMPARISON: No prior exams available for comparison. TECHNIQUE: Volumetric scanning was performed using a multi-row detector CT scanner during bolus infu kashif of 100 ml Omnipaque 350 (iohexol) nonionic water-soluble contrast as a single exam dose. The data was post processed with a variety of visualization algorithms including full volume maximum inte nsity projection, multi-planar sliding thin slab reformation, curved planar reformation, and surface rendering techniques. Using automated exposure control and adjustment of the mA and/or kV according to patient size, radiation dose was kept as low as reasonably achievable to obtain optimal diagnostic quality images. DICOM format image data is available electronically for review and comparison. FINDINGS: Abdominal Aorta: Diffuse arteriosclerotic calcification in the mid and distal abdominal aorta. The c eliac, SMA, and renal arteries are normal size vessels. Bifurcation: Prominent calcified plaque narrows the lumen to 60%, but no obstruction seen. Right Pelvis: Diffuse arteriosclerotic disease with numerous short segment noncalcified plaque causi ng less than 50% narrowing. Left Pelvis: Diffuse arteriosclerotic disease with numerous short segment noncalcified plaque causin g less than 50% narrowing. Right Thigh: Diffuse arteriosclerotic disease with numerous short segment noncalcified plaque causin g less than 50% narrowing. Left Thigh: Diffuse arteriosclerotic disease with numerous short segment noncalcified plaque causing less than 50% narrowing. Right Knee: Diffuse calcified and noncalcified plaque causing multiple areas of luminal narrowing, t he most prominent is just above the trifurcation causing greater than 70% narrowing. Left Knee: Diffuse calcified and noncalcified plaque causing multiple areas of luminal narrowing of 50%. Right Leg: Diffuse arteriosclerotic disease with two-vessel runoff to the ankle. Left Leg: Diffuse arteriosclerotic disease with two-vessel runoff to the ankle. OTHER: Multiple calcified gallstones. CONCLUSION: 1. Diffuse arteriosclerotic disease from the mid aorta to the calves with numerous short segment are as of narrowing. There is flow seen to the ankles bilaterally. The 2 areas of greatest narrowing are just above the aortic bifurcation and above the trifurcation in the right leg,, both having stenotic lesions of 70%.. Electronically signed by: Ignacio Cintron MD 01/11/2018 7:33 PM EDT
[2018-01-11] MEDS: Gabapentin 100 MG Capsule PO SCH (20:26)
[2018-01-12] MEDS: Sod Chloride 0.9% Inj 1,000 ML IV.CONT SCH ×4 (03:42→14:00)
[2018-01-12] MEDS: amLODIPine 10 MG Tablet PO SCH (09:34)
[2018-01-12] MEDS: Enoxaparin Inj 40 MG/0.4 ML Syringe SQ SCH (09:34)
[2018-01-12] MEDS: Furosemide 40 MG Tablet PO SCH (09:34)
[2018-01-12] MEDS: glipiZIDE 5 MG Tablet PO SCH (09:35)
[2018-01-12] MEDS: Senna/Docusate Sodium 8.6/50 MG Tablet PO SCH ×2 (09:35→20:57)
[2018-01-12] MEDS: Insulin NovoLIN Regular Correctional Sugar Inj SQ SCH ×4 (09:35→21:06)
[2018-01-12] MEDS: hydroCHLOROthiazide 25 MG Tablet PO SCH (09:35)
[2018-01-12] MEDS: oxyCODONE/Acetaminophen 10/325 Tablet PO PRN ×2 (12:23→19:43)
[2018-01-12] MEDS: Vancomycin Inj 1,250 MG in Sodium Chlor 0.9% Inj 250 ML IV.SIG SCH (12:24)
[2018-01-12] MEDS: levoFLOXacin 750 MG Tablet PO SCH (14:00)
--- NOTE | 2018-01-12 19:01 | P.PNPOD ---
Subjective Interval history: Patient seen bedside. Patient is resting comfortably with no complaints. He is nervous that his right lower extremity will hurt if I touch it however does not actually cause him any pain at this time. Denies any nausea vomiting fevers or chills. Physical Exam Vital signs: Vital Signs 01/11/18 20:00 01/11/18 22:11 01/12/18 00:00 Temperature 98.7 F 98.6 F Pulse Rate 71 73 67 Respiratory Rate 20 20 Blood Pressure 176/72 H 146/64 H 173/77 H Pulse Oximetry 94 L 67 L 01/12/18 04:00 01/12/18 08:00 01/12/18 16:00 Temperature 98 F 97.5 F L 98.5 F Pulse Rate 66 66 64 Respiratory Rate 20 16 18 Blood Pressure 153/69 H 154/71 H 160/72 H Pulse Oximetry 96 95 96 Intake & Output 01/12/18 01/12/18 01/13/18 06:59 18:59 06:59 Intake Total 862.5 / 862.5 1920 / 1920 Output Total 504 / 504 1400 / 1400 Balance 358.5 / 358.5 520 / 520 Intake: IV 262.5 / 262.5 Vancomycin Inj 1,250 MG In NS 262.5 / 262.5 Inj 250 ML @ 250 mls/hr IV.SIG Q18H [facility] Rx#:[id number] Oral 600 / 600 1920 / 1920 Output: Urine 504 / 504 1400 / 1400 Other: # Voids 2 Date of Last Bowel Movement 01/10/18 01/12/18 # Bowel Movements 0 # Incontinent Bowel Movements 2 Narrative: Improvement noted since patient was last evaluated Lower extremity physical exam: Vascular: Dorsalis pedis nonpalpable, posterior tibial nonpalpable. Capillary refill time within normal limits to digits 5 bilateral foot. Edema present right lower extremity. Neuro: Gross sensation intact to bilateral lower extremity. Pinpoint sensation decreased. No hyperalgesia noted to bilateral lower extremity Dermatology: Increased erythema and edema noted to right lower extremity extending from digits to tibial tuberosity, receding of erythema noted an improvement noted to erythema.. Superficial abrasions noted to medial lateral ankle ulcerations. No deep ulcerations noted. Musculoskeletal: Tender to palpation to right lower extremity globally. Medications and Allergies Active Medications: Active Medications Acetaminophen (Tylenol) 650 mg PO Q4H PRN PRN Reason: PAIN 1-5 AND FEVER Last Admin: 01/11/18 00:16 Dose: 650 mg Al Hydroxide/Mg Hydroxide (Milk Of Magnjulian Liq) 30 ml PO Q12H PRN PRN Reason: Mild Constipation Amlodipine Besylate (Norvasc) 10 mg PO DAILY [facility] Last Admin: 01/12/18 09:34 Dose: 10 mg Atenolol (Tenormin) 25 mg PO DAILY [facility] Atorvastatin Calcium (Lipitor) 80 mg PO HS [facility] Last Admin: 01/11/18 20:26 Dose: 80 mg Bisacodyl (Dulcolax Supp) 10 mg RECTAL DAILY PRN PRN Reason: SEVERE CONSITIPATION Clopidogrel Bisulfate (Plavix) 75 mg PO DAILY [facility] Last Admin: 01/12/18 09:34 Dose: 75 mg Dextrose (D50w Vial) 50 ml IV.PUSH UNSCH PRN PRN Reason: PER HYPOGLYCEMIA PROTOCOL Enoxaparin Sodium (Lovenox Inj) 40 mg SQ DAILY [facility] Last Admin: 01/12/18 09:34 Dose: 40 mg Furosemide (Lasix) 40 mg PO DAILY [facility] Last Admin: 01/12/18 09:34 Dose: 40 mg Gabapentin (Neurontin) 100 mg PO HS [facility] Last Admin: 01/11/18 20:26 Dose: 100 mg Glipizide (Glucotrol) 5 mg PO DAILY [facility] Last Admin: 01/12/18 09:35 Dose: 5 mg Glucagon (Glucagon Inj) 1 mg OTHER PRN PRN PRN Reason: for Hypoglycemia Protocol Hydrochlorothiazide (Hydrodiuril) 25 mg PO DAILY [facility] Last Admin: 01/12/18 09:35 Dose: 25 mg Pharmacy Profile Note (Vancomycin Consult Pharmacy) mls @ 0 mls/hr OTHER UNSCH [facility] Vancomycin HCl 1,250 mg/ (Sodium Chloride) 262.5 mls @ 250 mls/hr IV.SIG Q18H [facility] Last Infusion: 01/12/18 18:58 Dose: 250 mls/hr Sodium Chloride (Ns Inj) 1,000 mls @ 84 mls/hr IV.CONT .[id number] [facility] Last Admin: 01/12/18 14:00 Dose: Not Given Sodium Chloride (Ns Inj) 1,000 mls @ 84 mls/hr IV.CONT .[id number] [facility] Last Admin: 01/12/18 14:00 Dose: Not Given Insulin Human Regular (Novolin R Correctional Sugar Inj) 0 units SQ ACHS [facility]; Protocol Last Admin: 01/12/18 17:18 Dose: 1 units Lactulose (Lactulose Liq) 30 ml PO DAILY PRN PRN Reason: SEVERE CONSITIPATION Last Admin: 01/09/18 17:01 Dose: 30 ml Levofloxacin (Levaquin) 750 mg PO Q48H [facility] Last Admin: 01/12/18 14:00 Dose: 750 mg Miscellaneous Information ([facility] Ordered Lab Info) 1 each OTHER ONCE ONE Stop: 01/13/18 05:46 Oxycodone/Acetaminophen (Percocet 10/325 Mg) 1 tab PO BID PRN PRN Reason: Pain 1-10 Last Admin: 01/12/18 12:23 Dose: 1 tab Senna/Docusate Sodium (Kate-Colace) 1 tab PO BID [facility] Last Admin: 01/12/18 09:35 Dose: 1 tab Sennosides (Senokot) 17.2 mg PO Q12H PRN PRN Reason: Moderate Constipation Last Admin: 01/09/18 21:17 Dose: 17.2 mg Temazepam (Restoril) 15 mg PO HS PRN PRN Reason: INSOMNIA Last Admin: 01/09/18 21:18 Dose: 15 mg Warfarin Sodium (Coumadin) 5 mg PO DAILY@1600 [facility] Last Admin: 01/12/18 17:17 Dose: 5 mg Allergies Allergy/AdvReac Type Severity Reaction Status Date / Time acetaminophen Allergy Severe Tachycardia Verified 01/08/18 12:39 throat swelling codeine Allergy Severe Rash Verified 01/10/18 12:45 propoxyphene Allergy Severe Nausea/Vomi Verified 01/10/18 12:45 ting Home Medications Medication Instructions Recorded Confirmed Type amlodipine 10 mg PO DAILY 01/08/18 01/08/18 History atenolol [Tenormin] 25 mg PO DAILY 01/08/18 01/08/18 History atorvastatin [Lipitor] 80 mg PO HS 01/08/18 01/08/18 History clopidogrel [Plavix] 75 mg PO DAILY 01/08/18 01/08/18 History furosemide [Lasix] 40 mg PO DAILY 01/08/18 01/08/18 History gabapentin 100 mg PO HS 01/08/18 01/08/18 History glipizide 5 mg PO DAILY 01/08/18 01/08/18 History hydrochlorothiazide 25 mg PO DAILY 01/08/18 01/08/18 History metoprolol succinate 50 mg PO DAILY 01/08/18 01/08/18 History oxycodone-acetaminophen [Percocet] 1 tab PO BID PRN 01/08/18 01/08/18 History warfarin [Coumadin] 1 mg PO DAILY 01/08/18 01/08/18 History Results - Labs CBC & Chem 7: 01/11/18 08:50 01/11/18 08:50 Laboratory Results - last 24 hr 01/11/18 01/12/18 01/12/18 20:36 08:00 12:25 POC Glucose 211 H 182 H 259 H 01/12/18 16:49 POC Glucose 198 H Microbiology 01/10/18 15:30 Wound - Ankle Gram Stain - Final 01/10/18 15:30 Wound - Ankle Wound Culture - Final S. aureus MRSA 01/10/18 15:30 Blood - Peripheral Aerobic Blood Culture - Preliminary No growth in 2 days 01/10/18 15:30 Blood - Peripheral Anaerobic Blood Culture - Preliminary No growth in 2 days 01/10/18 15:25 Blood - Peripheral Aerobic Blood Culture - Preliminary No growth in 2 days 01/10/18 15:25 Blood - Peripheral Anaerobic Blood Culture - Preliminary No growth in 2 days - Imaging Impressions Aorta w/Runoff CTA 01/11/18 13:58 CONCLUSION: 1. Diffuse arteriosclerotic disease from the mid aorta to the calves with numerous short segment areas of narrowing. There is flow seen to the ankles bilaterally. The 2 areas of greatest narrowing are just above the aortic bifurcation and above the trifurcation in the right leg,, both having stenotic lesions of 70%.. Assessment and Plan - Plan 72-year-old male cellulitis to right lower extremity Will await vascular recommendations Will reevaluate patient in the next 48 hours Improvement noted to cellulitis with resolving blisters Dressing changed, Xeroform 4 x 4's Susan and Rivera applied to right lower extremity Daily dressing changes to be performed by nursing
[2018-01-12] MEDS: Gabapentin 100 MG Capsule PO SCH (20:58)
[2018-01-13] MEDS ORDERED: Pharmacy Ordered Lab Info OTHER ONE (05:45)
[2018-01-13] MEDS: Vancomycin Inj 1,250 MG in Sodium Chlor 0.9% Inj 250 ML IV.SIG SCH (06:19)
[2018-01-13 06:22] LABS: Vancomycin,Trough 15.1 mcg/mL (5.0-10.0)
[2018-01-13] MEDS: Sod Chloride 0.9% Inj 1,000 ML IV.CONT SCH ×4 (07:32→20:08)
--- NOTE | 2018-01-13 08:23 | P.PNVS ---
Subjective Subjective/Hospital Course: Patient seen, full consult dictated Will follow Billie Ryan 01/13/2018 As noted in my history and physical exam this patient has combination of inflow and outflow disease in both legs. CTA confirms the same noting that patient has aortoiliac arthrosclerotic changes and then common femoral superficial femoral artery disease narrowings in the range of 50-60% throughout but not hemodynamically significant. The only narrowing this probably is hemodynamically significant is the 70-80% popliteal stenosis on the right. Again, as noted in my history and physical this patient is not a candidate for any major vascular reconstructions due to his severe comorbidities and medical issues but he may be a candidate for balloon angioplasty. We will discuss with interventional radiology and see which way we can best help this gentleman. Objective Vital Signs / I&O: Vital Signs 01/12/18 16:00 01/12/18 20:00 01/13/18 00:00 Temperature 98.5 F 99.6 F 98.0 F Pulse Rate 64 78 74 Respiratory Rate 18 18 18 Blood Pressure 160/72 H 172/72 H 162/70 H Pulse Oximetry 96 96 93 L 01/13/18 04:00 Temperature 99.3 F Pulse Rate 70 Respiratory Rate 18 Blood Pressure 133/64 Pulse Oximetry 95 Intake & Output 01/12/18 01/13/18 01/13/18 18:59 06:59 18:59 Intake Total 1920 / 1920 750 / 750 262.5 / 262.5 Output Total 1400 / 1400 700 / 700 Balance 520 / 520 50 / 50 262.5 / 262.5 Intake: IV 750 / 750 262.5 / 262.5 Vancomycin Inj 1,250 MG In NS 750 / 750 262.5 / 262.5 Inj 250 ML @ 250 mls/hr IV.SIG Q18H [facility] Rx#:[id number] Oral 1920 / 1920 Output: Urine 1400 / 1400 700 / 700 Other: # Voids 2 Date of Last Bowel Movement 01/12/18 # Bowel Movements 0 # Incontinent Bowel Movements 2 Laboratory Results - last 24 hr 01/12/18 01/12/18 01/12/18 12:25 16:49 20:57 Creatinine Estimated GFR POC Glucose 259 H 198 H 177 H Vancomycin Trough 01/13/18 01/13/18 05:28 08:09 Creatinine 1.01 Estimated GFR 73 L POC Glucose 210 H Vancomycin Trough 15.1 H Microbiology 01/10/18 15:30 Gram Stain - Final Wound - Ankle Wound Culture - Final S. aureus MRSA 01/10/18 15:30 Aerobic Blood Culture - Preliminary Blood - Peripheral No growth in 2 days Anaerobic Blood Culture - Preliminary No growth in 2 days 01/10/18 15:25 Aerobic Blood Culture - Preliminary Blood - Peripheral No growth in 2 days Anaerobic Blood Culture - Preliminary No growth in 2 days Impressions Extremity Arterial Study 01/10/18 00:00 CONCLUSION: 1. Findings consistent with moderate to severe bilateral, right greater than left, lower extremity peripheral arterial disease. 2. There is a large component of small vessel disease. Aorta w/Runoff CTA 01/11/18 13:58 CONCLUSION: 1. Diffuse arteriosclerotic disease from the mid aorta to the calves with numerous short segment areas of narrowing. There is flow seen to the ankles bilaterally. The 2 areas of greatest narrowing are just above the aortic bifurcation and above the trifurcation in the right leg,, both having stenotic lesions of 70%..
[2018-01-13] MEDS: Insulin NovoLIN Regular Correctional Sugar Inj SQ SCH ×4 (09:30→21:35)
[2018-01-13] MEDS: Enoxaparin Inj 40 MG/0.4 ML Syringe SQ SCH (09:31)
[2018-01-13] MEDS: hydroCHLOROthiazide 25 MG Tablet PO SCH (09:31)
[2018-01-13] MEDS: amLODIPine 10 MG Tablet PO SCH (09:31)
[2018-01-13] MEDS: Senna/Docusate Sodium 8.6/50 MG Tablet PO SCH ×2 (09:31→21:35)
[2018-01-13] MEDS: Furosemide 40 MG Tablet PO SCH (09:31)
[2018-01-13] MEDS: Atenolol 25 MG Tablet PO SCH (09:32)
[2018-01-13] MEDS: glipiZIDE 5 MG Tablet PO SCH (09:32)
--- NOTE | 2018-01-13 10:57 | P.PNID ---
Subjective Remarks: is a 72-year-old male, brought into the hospital for further evaluation of pain, redness on his right lower extremity. Patient lives by himself. He seemed that he noted itching on his right foot about a week prior to admission. He started scratching, and about several days after he noticed it he started developing redness on his right foot. It progressively worsened. He was seen by his pain doctor about 5 days prior to admission, and it is unclear what kind of medication was given to the patient. He has not any fever chills or sweats. He had fallen one time, but could not remember whether he had a wound or scrape that resulted from that fall. The redness started getting worse, and he was getting more pain so he was brought into the hospital for further evaluation and treatment. His initial white count was 16,000. He has had low-grade temps of about 100. Infectious disease consultation has been requested to evaluate the patient. Notes reviewed Temps ok C/O some pain in his RLE Vascular surgery notes reviewed BC negative Wound C/S MRSA Creatinine better No rash No diarrhea Antibiotics: Vanco IV Levaquin Lines: Lines ok Past Medical History: COPD (chronic obstructive pulmonary disease) Diabetes Heart attack CAD Hypertension Osteomyelitis of ankle Hx stent coronaries Allergies/Adverse Reactions: Allergies acetaminophen Allergy (Severe, Verified 01/08/18 12:39) Tachycardia throat swelling Patient given dose had SOB and Tachycardia that passed, previously got dose 12 /9 AM without any reaction, 12/10 AM experienced the SOB and Tachycardia. i asked pt about tylenol allergy and he said he gets throat swelling. codeine Allergy (Severe, Verified 01/10/18 12:45) Rash propoxyphene Allergy (Severe, Verified 01/10/18 12:45) Nausea/Vomiting Objective Vital Signs 01/12/18 16:00 01/12/18 20:00 01/13/18 00:00 Temperature 98.5 F 99.6 F 98.0 F Pulse Rate 64 78 74 Respiratory Rate 18 18 18 Blood Pressure 160/72 H 172/72 H 162/70 H Pulse Oximetry 96 96 93 L 01/13/18 04:00 01/13/18 08:00 Temperature 99.3 F 99.4 F Pulse Rate 70 70 Respiratory Rate 17 Blood Pressure 133/64 165/72 H Pulse Oximetry 95 93 L Intake & Output 0819/18 08/20/18 08/20/18 18:59 06:59 18:59 Intake Total 1920 / 1920 750 / 750 262.5 / 262.5 Output Total 1400 / 1400 700 / 700 Balance 520 / 520 50 / 50 262.5 / 262.5 Intake: IV 750 / 750 262.5 / 262.5 Vancomycin Inj 1,250 MG In NS 750 / 750 262.5 / 262.5 Inj 250 ML @ 250 mls/hr IV.SIG Q18H [facility] Rx#:[id number] Oral 1920 / 1920 Output: Urine 1400 / 1400 700 / 700 Other: # Voids 2 Date of Last Bowel Movement 01/12/18 # Bowel Movements 0 # Incontinent Bowel Movements 2 01/10/18 15:30 Wound - Ankle Gram Stain - Final 01/10/18 15:30 Wound - Ankle Wound Culture - Final S. aureus MRSA 01/10/18 15:30 Blood - Peripheral Aerobic Blood Culture - Preliminary No growth in 2 days 01/10/18 15:30 Blood - Peripheral Anaerobic Blood Culture - Preliminary No growth in 2 days 01/10/18 15:25 Blood - Peripheral Aerobic Blood Culture - Preliminary No growth in 2 days 01/10/18 15:25 Blood - Peripheral Anaerobic Blood Culture - Preliminary No growth in 2 days Lab - Chemistry Results 01/11/18 01/11/18 01/11/18 13:27 17:50 20:36 Creatinine Estimated GFR POC Glucose 279 H 243 H 211 H 01/12/18 01/12/18 01/12/18 08:00 12:25 16:49 Creatinine Estimated GFR POC Glucose 182 H 259 H 198 H 01/12/18 01/13/18 01/13/18 20:57 05:28 08:09 Creatinine 1.01 Estimated GFR 73 L POC Glucose 177 H 210 H Imaging: ITS Impressions Ankle X-Ray 01/10/18 00:00 CONCLUSION: 1. Soft tissue tissue prominence with no acute fracture or malalignment. 2. Small spur off the inferior calcaneus. Extremity Arterial Study 01/10/18 00:00 CONCLUSION: 1. Findings consistent with moderate to severe bilateral, right greater than left, lower extremity peripheral arterial disease. 2. There is a large component of small vessel disease. Aorta w/Runoff CTA 01/11/18 13:58 CONCLUSION: 1. Diffuse arteriosclerotic disease from the mid aorta to the calves with numerous short segment areas of narrowing. There is flow seen to the ankles bilaterally. The 2 areas of greatest narrowing are just above the aortic bifurcation and above the trifurcation in the right leg,, both having stenotic lesions of 70%.. Physical Exam: GENERAL: Well-nourished well-developed, NAD SKIN: Cool and dry, no generalized rash EYES: Pupils equal round and reactive. Scleral icterus. No injection or drainage. No petechia ENT: No nasal drainage, moist oral mucosa NECK: Trachea midline. Supple, nontender, no meningeal signs. CARDIOVASCULAR: HS audible. RESPIRATORY: Clear to auscultation bilaterally. GASTROINTESTINAL: Abdomen soft nontender. MUSCULOSKELETAL: Right lower extremity with FLORENCE wrap in place, with improving edema. The wrap is dry and intact. NEUROLOGICAL: Alert oriented 3. Nonfocal. Psych cooperative IV line sites ok. Assessment and Plan - Plan Impression Cellulitis RLE (foot and leg), possibly entry is wound on his ankle Possible sepsis due to cellulitis RLE PVD RLE Known DM Previous Rx osteo L ankle, looks resolved clinically CAD, previous KS, and coronary artery stenting Recommendation Continue IV vanco Continue Levaquin for now Vascular surgery following Wound care per podiatry Monitor progress Elevate leg if feasible, patient not very compliant
--- NOTE | 2018-01-13 13:11 | P.PNFP ---
Subjective Interval history: He is in bed, Found hanging out. He complains of discomfort to RLE RLE wrapped Denies CP SOB Results - Labs Result diagrams: 01/11/18 08:50 01/13/18 05:28 Abnormal lab results 01/12/18 01/12/18 01/13/18 Range/Units 16:49 20:57 05:28 Estimated GFR 73 L (>89) mL/min POC Glucose 198 H 177 H (68-110) mg/dl Vancomycin Trough 15.1 H (5.0-10.0) mcg/mL 01/13/18 01/13/18 Range/Units 08:09 11:58 Estimated GFR (>89) mL/min POC Glucose 210 H 266 H (68-110) mg/dl Vancomycin Trough (5.0-10.0) mcg/mL BMP 01/13/18 05:28 Creatinine 1.01 - Imaging Ankle X-Ray 01/10/18 00:00 CONCLUSION: 1. Soft tissue tissue prominence with no acute fracture or malalignment. 2. Small spur off the inferior calcaneus. Extremity Arterial Study 01/10/18 00:00 CONCLUSION: 1. Findings consistent with moderate to severe bilateral, right greater than left, lower extremity peripheral arterial disease. 2. There is a large component of small vessel disease. Aorta w/Runoff CTA 01/11/18 13:58 CONCLUSION: 1. Diffuse arteriosclerotic disease from the mid aorta to the calves with numerous short segment areas of narrowing. There is flow seen to the ankles bilaterally. The 2 areas of greatest narrowing are just above the aortic bifurcation and above the trifurcation in the right leg,, both having stenotic lesions of 70%.. Physical Exam Vital signs: Vital Signs 01/12/18 16:00 01/12/18 20:00 01/13/18 00:00 Temperature 98.5 F 99.6 F 98.0 F Pulse Rate 64 78 74 Respiratory Rate 18 18 18 Blood Pressure 160/72 H 172/72 H 162/70 H Pulse Oximetry 96 96 93 L 01/13/18 04:00 01/13/18 08:00 Temperature 99.3 F 99.4 F Pulse Rate 70 70 Respiratory Rate 18 17 Blood Pressure 133/64 165/72 H Pulse Oximetry 95 93 L Intake & Output 01/12/18 01/13/18 01/13/18 18:59 06:59 18:59 Intake Total 1920 / 1920 750 / 750 262.5 / 262.5 Output Total 1400 / 1400 700 / 700 Balance 520 / 520 50 / 50 262.5 / 262.5 Intake: IV 750 / 750 262.5 / 262.5 Vancomycin Inj 1,250 MG In NS 750 / 750 262.5 / 262.5 Inj 250 ML @ 250 mls/hr IV.SIG Q18H [facility] Rx#:[id number] Oral 1920 / 1920 Output: Urine 1400 / 1400 700 / 700 Other: # Voids 2 Date of Last Bowel Movement 01/12/18 # Bowel Movements 0 # Incontinent Bowel Movements 2 - Constitutional no acute distress - Routine HEENT Exam Eye: Present: PERRL ENT: Present: mucous membranes moist - Routine Respiratory Exam Present: CTA bilaterally - Routine Cardiovascular Exam Present: S1, S2 - Routine Abdominal Exam Present: soft, normoactive bowel sounds - Routine Skin Exam Present: dry, warm - Routine Neurological Exam Present: alert, moving all extremities - Routine Psychiatric Exam Present: cooperative Assessment and Plan - Assessment (1) Diabetic infection of right foot Code(s): E11.628 - Type 2 diabetes mellitus with other skin complications; L08.9 - Local infection of the skin and subcutaneous tissue, unspecified Status: Acute Plan: IV vanc, Pharmacy is dosing Podiatry and ID consult noted. Will get vascular studies per Podiatry and Vas Surg if needed. (2) Diabetes Code(s): E11.9 - Type 2 diabetes mellitus without complications Status: Acute Plan: Monitor BS, Cont home medications. (3) HTN (hypertension) Code(s): I10 - Essential (primary) hypertension Status: Acute Plan: Cont home medications, Titrate as needed (4) COPD (chronic obstructive pulmonary disease) Code(s): J44.9 - Chronic obstructive pulmonary disease, unspecified Status: Acute Plan: Stable on room air, cont to monitor (5) Blood coagulation disorder Code(s): D68.9 - Coagulation defect, unspecified Status: Acute Plan: On Coumadin, cont home medications. Monitor INR - Assessment and Plan 01/10/18- Uneventful night reported.Foot looks better today not quite as red. Patient voices pain has decreased. INR 1.1, he is bridged with lovenox for Coagulation disorder. Will increase Coumadin. Cont to monitor Will DC to SNF on Iv antibiotics once arrangement made, PT eval today. 01/11/18 - Podiatry consult noted. They are obtaining vascular study and will consult Vascular Surgery if needed. He remains on antibiotics per ID recommendation. Will cont to monitor closely and follow daily. 01/13/18- Seen in room, he is half way out the bed, He denies any CP, SOB. RLE wrapped in rashida bandage, toes warm. Patient seen By Vascular CTA showing 70-80% popliteal stenosis on the right. According to noted no candidate for surgical intervention, balloon angioplasty being considered. He is being followed by ID, BC negative, RLE wound MRSA he is on Vanco and Levaquin. (2) Diabetes Qualifiers: Diabetes mellitus type: type 2 Diabetes mellitus complication status: with skin complications
[2018-01-13 14:31] LABS: Hematocrit 31.9 % (39.0-51.0); Hemoglobin 10.1 gm/dL (13.0-17.0); Mean Corpuscular HGB Conc 31.7 % (32.0-36.0); Mean Corpuscular Hemoglobin 23.9 pg (27.0-34.0); Mean Corpuscular Volume 75.4 fL (80.0-100.0); Mean Platelet Volume 7.6 fL (7.0-11.0); Platelet Count 581 th/mm3 (150-450); Red Blood Count 4.23 mil/mm3 (4.50-5.90); Red Cell Distribution Width 17.1 % (11.6-17.2); White Blood Count 17.9 th/mm3 (4.0-11.0)
[2018-01-13 14:38] LABS: INR 1.2 Ratio; Prothrombin Time 12.3 sec (9.8-11.6)
[2018-01-13 14:51] LABS: Calcium 8.3 mg/dL (8.5-10.1); Carbon Dioxide 31.7 meq/L (21.0-32.0); Potassium 3.7 meq/L (3.5-5.1)
[2018-01-13] MEDS: Gabapentin 100 MG Capsule PO SCH (21:35)
[2018-01-14] MEDS: Vancomycin Inj 1,250 MG in Sodium Chlor 0.9% Inj 250 ML IV.SIG SCH ×2 (00:54→17:59)
[2018-01-14] MEDS: oxyCODONE/Acetaminophen 10/325 Tablet PO PRN ×2 (01:02→17:59)
[2018-01-14] MEDS: Sod Chloride 0.9% Inj 1,000 ML IV.CONT SCH ×4 (05:25→15:43)
[2018-01-14] MEDS: Insulin NovoLIN Regular Correctional Sugar Inj SQ SCH ×4 (08:35→21:58)
[2018-01-14] MEDS: glipiZIDE 5 MG Tablet PO SCH (08:36)
[2018-01-14] MEDS ORDERED: fentaNYL Citrate Inj 250 MCG/5 ML Ampul ONE (08:50)
[2018-01-14] MEDS ORDERED: Heparin 10,000 UNITS/10 ML Vial (for IV use) ONE (10:01)
[2018-01-14] MEDS: hydroCHLOROthiazide 25 MG Tablet PO SCH (10:23)
[2018-01-14] MEDS: Furosemide 40 MG Tablet PO SCH (10:23)
[2018-01-14] MEDS: amLODIPine 10 MG Tablet PO SCH (10:23)
[2018-01-14] MEDS: Senna/Docusate Sodium 8.6/50 MG Tablet PO SCH ×2 (10:23→21:58)
[2018-01-14] MEDS: Atenolol 25 MG Tablet PO SCH (10:24)
[2018-01-14] MEDS ORDERED: Protamine Sulfate Inj 50 MG/5 ML Vial ONE (11:07)
--- NOTE | 2018-01-14 11:59 | P.RAD ---
Post Procedure Progress Note - Procedure Information Procedure Date: 01/14/18 Supervising Radiologist: Alexander Posada MD Estimated blood loss (mL): 0 Anesthesia: Conscious Sedation - Plan of Activity Patient to Unit: ROPU Patient Condition: Good See PACS Report for procedural detail/treatment.
[2018-01-14] MEDS: levoFLOXacin 750 MG Tablet PO SCH (15:41)
--- NOTE | 2018-01-14 17:00 | P.PNPOD ---
Subjective Interval history: Patient feels that the right foot ankle and leg is improving Physical Exam Vital signs: Vital Signs 01/13/18 20:00 01/14/18 01:30 01/14/18 08:00 Temperature 99.4 F 98.8 F Pulse Rate 64 101 H Respiratory Rate 18 16 18 Blood Pressure 153/68 H 156/75 H Pulse Oximetry 94 L 98 01/14/18 11:30 01/14/18 11:45 01/14/18 12:00 Temperature 98.0 F Pulse Rate 63 60 59 L Respiratory Rate 18 20 18 Blood Pressure 159/77 H 149/78 H 157/72 H Pulse Oximetry 93 L 92 L 94 L 01/14/18 12:30 01/14/18 13:00 01/14/18 13:30 Temperature Pulse Rate 55 L 57 L 61 Respiratory Rate 18 20 20 Blood Pressure 150/70 H 156/58 H 155/65 H Pulse Oximetry 93 L 95 94 L 01/14/18 14:00 Temperature Pulse Rate 57 L Respiratory Rate 20 Blood Pressure 166/64 H Pulse Oximetry 93 L Intake & Output 01/13/18 01/14/18 01/14/18 18:59 06:59 18:59 Intake Total 1222.5 / 1222.5 262.5 / 262.5 1999 Output Total 1000 / 1000 Balance 222.5 / 222.5 262.5 / 262.5 1999 Intake: IV 262.5 / 262.5 262.5 / 262.5 1000 / 1000 NS Inj 1,000 ML @ 84 mls/hr IV. 1000 / 1000 CONT .[id number] [facility] Rx#:[id number] Vancomycin Inj 1,250 MG In NS 262.5 / 262.5 262.5 / 262.5 Inj 250 ML @ 250 mls/hr IV.SIG Q18H [facility] Rx#:[id number] Oral 960 / 960 Other 1000 / 1000 Output: Urine 1000 / 1000 Other: Other Intake Source Saline Solution Narrative: Right lower extremity, erythema expansile of the foot and ankle with honey fluid -filled posterior ankle blister superficial abrasion of the medial ankle that does not probe deep no bone or tendon exposed, petechiae hemorrhaging that is non-blanchable extends from the foot ankle and distal calf, this does not appear to be ischemic changes foot is warm. The soft tissue envelope is not tense and there are skin lines, pedal pulses cannot be palpated the patient has difficulty with range of motion of the foot and ankle Left lower extremity is immobilized within a knee brace of some sort no obvious left foot or ankle issue noted Medications and Allergies Active Medications: Active Medications Acetaminophen (Tylenol) 650 mg PO Q4H PRN PRN Reason: PAIN 1-5 AND FEVER Last Admin: 01/11/18 00:16 Dose: 650 mg Al Hydroxide/Mg Hydroxide (Milk Of Magnjulian Liq) 30 ml PO Q12H PRN PRN Reason: Mild Constipation Last Admin: 01/12/18 20:59 Dose: 30 ml Amlodipine Besylate (Norvasc) 10 mg PO DAILY [facility] Last Admin: 01/14/18 10:23 Dose: Not Given Atenolol (Tenormin) 25 mg PO DAILY [facility] Last Admin: 01/14/18 10:24 Dose: Not Given Atorvastatin Calcium (Lipitor) 80 mg PO HS [facility] Last Admin: 01/13/18 21:35 Dose: 80 mg Bisacodyl (Dulcolax Supp) 10 mg RECTAL DAILY PRN PRN Reason: SEVERE CONSITIPATION Clopidogrel Bisulfate (Plavix) 75 mg PO DAILY [facility] Last Admin: 01/14/18 10:24 Dose: Not Given Dextrose (D50w Vial) 50 ml IV.PUSH UNSCH PRN PRN Reason: PER HYPOGLYCEMIA PROTOCOL Enoxaparin Sodium (Lovenox Inj) 40 mg SQ DAILY [facility] Last Admin: 01/13/18 09:31 Dose: 40 mg Furosemide (Lasix) 40 mg PO DAILY [facility] Last Admin: 01/14/18 10:23 Dose: Not Given Gabapentin (Neurontin) 100 mg PO [facility] Last Admin: 01/13/18 21:35 Dose: 100 mg Glipizide (Glucotrol) 5 mg PO DAILY [facility] Last Admin: 01/14/18 08:36 Dose: Not Given Glucagon (Glucagon Inj) 1 mg OTHER PRN PRN PRN Reason: for Hypoglycemia Protocol Hydrochlorothiazide (Hydrodiuril) 25 mg PO DAILY [facility] Last Admin: 01/14/18 10:23 Dose: Not Given Pharmacy Profile Note (Vancomycin Consult Pharmacy) mls @ 0 mls/hr OTHER UNSCH [facility] Vancomycin HCl 1,250 mg/ (Sodium Chloride) 262.5 mls @ 250 mls/hr IV.SIG Q18H [facility] Last Infusion: 01/14/18 05:21 Dose: Infused Sodium Chloride (Ns Inj) 1,000 mls @ 84 mls/hr IV.CONT .[id number] [facility] Last Admin: 01/14/18 13:59 Dose: Not Given Sodium Chloride (Ns Inj) 1,000 mls @ 84 mls/hr IV.CONT .[id number] [facility] Last Admin: 01/14/18 15:43 Dose: 84 mls/hr Insulin Human Regular (Novolin R Correctional Sugar Inj) 0 units SQ ACHS [facility]; Protocol Last Admin: 01/14/18 13:59 Dose: Not Given Lactulose (Lactulose Liq) 30 ml PO DAILY PRN PRN Reason: SEVERE CONSITIPATION Last Admin: 01/09/18 17:01 Dose: 30 ml Levofloxacin (Levaquin) 750 mg PO Q48H [facility] Last Admin: 01/14/18 15:41 Dose: 750 mg Oxycodone/Acetaminophen (Percocet 10/325 Mg) 1 tab PO BID PRN PRN Reason: Pain 1-10 Last Admin: 01/14/18 01:02 Dose: 1 tab Senna/Docusate Sodium (Kate-Colace) 1 tab PO BID [facility] Last Admin: 01/14/18 10:23 Dose: Not Given Sennosides (Senokot) 17.2 mg PO Q12H PRN PRN Reason: Moderate Constipation Last Admin: 01/09/18 21:17 Dose: 17.2 mg Temazepam (Restoril) 15 mg PO HS PRN PRN Reason: INSOMNIA Last Admin: 01/09/18 21:18 Dose: 15 mg Warfarin Sodium (Coumadin) 5 mg PO DAILY@1600 [facility] Last Admin: 01/13/18 15:12 Dose: Not Given Allergies Allergy/AdvReac Type Severity Reaction Status Date / Time acetaminophen Allergy Severe Tachycardia Verified 01/08/18 12:39 throat swelling codeine Allergy Severe Rash Verified 01/10/18 12:45 propoxyphene Allergy Severe Nausea/Vomi Verified 01/10/18 12:45 ting Home Medications Medication Instructions Recorded Confirmed Type amlodipine 10 mg PO DAILY 01/08/18 01/08/18 History atenolol [Tenormin] 25 mg PO DAILY 01/08/18 01/08/18 History atorvastatin [Lipitor] 80 mg PO HS 01/08/18 01/08/18 History clopidogrel [Plavix] 75 mg PO DAILY 01/08/18 01/08/18 History furosemide [Lasix] 40 mg PO DAILY 01/08/18 01/08/18 History gabapentin 100 mg PO HS 01/08/18 01/08/18 History glipizide 5 mg PO DAILY 01/08/18 01/08/18 History hydrochlorothiazide 25 mg PO DAILY 01/08/18 01/08/18 History metoprolol succinate 50 mg PO DAILY 01/08/18 01/08/18 History oxycodone-acetaminophen [Percocet] 1 tab PO BID PRN 01/08/18 01/08/18 History warfarin [Coumadin] 1 mg PO DAILY 01/08/18 01/08/18 History Results - Labs CBC & Chem 7: 01/13/18 14:07 01/13/18 14:07 Laboratory Results - last 24 hr 01/13/18 01/14/18 01/14/18 18:15 08:00 11:47 POC Glucose 149 H 184 H 163 H 01/14/18 15:38 POC Glucose 160 H Microbiology 01/10/18 15:30 Blood - Peripheral Aerobic Blood Culture - Preliminary No growth in 4 days 01/10/18 15:30 Blood - Peripheral Anaerobic Blood Culture - Preliminary No growth in 4 days 01/10/18 15:25 Blood - Peripheral Aerobic Blood Culture - Preliminary No growth in 4 days 01/10/18 15:25 Blood - Peripheral Anaerobic Blood Culture - Preliminary No growth in 4 days Assessment and Plan - Assessment (1) Cellulitis Code(s): L03.90 - Cellulitis, unspecified Status: Acute - Plan Continue IV antibiotics Xeroform to the superficial abrasion wound of the right medial ankle this can be changed daily per nursing. No surgical plans at this point will follow intermittently. I do agree that any increase in blood flow could help this gentleman significantly, awaiting vascular, IR. (1) Cellulitis Qualifiers: Site of cellulitis: extremity Site of cellulitis of extremity: lower extremity Laterality: right Qualified Code(s): L03.115 - Cellulitis of right lower limb
--- NOTE | 2018-01-14 18:59 | P.PNVS ---
Subjective Subjective/Hospital Course: Patient seen, full consult dictated Will follow Billie Ryan 01/13/2018 As noted in my history and physical exam this patient has combination of inflow and outflow disease in both legs. CTA confirms the same noting that patient has aortoiliac arthrosclerotic changes and then common femoral superficial femoral artery disease narrowings in the range of 50-60% throughout but not hemodynamically significant. The only narrowing this probably is hemodynamically significant is the 70-80% popliteal stenosis on the right. Again, as noted in my history and physical this patient is not a candidate for any major vascular reconstructions due to his severe comorbidities and medical issues but he may be a candidate for balloon angioplasty. We will discuss with interventional radiology and see which way we can best help this gentleman. 01/14/2018 Patient underwent successful percutaneous balloon angioplasty of the right leg inflow and outflow system. Foot is warm and patient has strong dopplerable popliteal pulses postdilatation This is the best we can do right now for the patient and no other improvement of blood supply can be generated, giving patient the best chance for healing. There is still high risk for below-knee amputation in this unfortunate gentleman depending on how he does with his podiatry surgery At some point left leg will have to be addressed but I would allow patient to recover from this first Objective Vital Signs / I&O: Vital Signs 01/13/18 20:00 01/14/18 01:30 01/14/18 08:00 Temperature 99.4 F 98.8 F Pulse Rate 64 101 H Respiratory Rate 18 16 18 Blood Pressure 153/68 H 156/75 H Pulse Oximetry 94 L 98 01/14/18 11:30 01/14/18 11:45 01/14/18 12:00 Temperature 98.0 F Pulse Rate 63 60 59 L Respiratory Rate 18 20 18 Blood Pressure 159/77 H 149/78 H 157/72 H Pulse Oximetry 93 L 92 L 94 L 01/14/18 12:30 01/14/18 13:00 01/14/18 13:30 Temperature Pulse Rate 55 L 57 L 61 Respiratory Rate 18 20 20 Blood Pressure 150/70 H 156/58 H 155/65 H Pulse Oximetry 93 L 95 94 L 01/14/18 14:00 01/14/18 17:43 Temperature 98.5 F Pulse Rate 57 L 58 L Respiratory Rate 20 14 Blood Pressure 166/64 H 172/75 H Pulse Oximetry 93 L 97 Intake & Output 01/13/18 01/14/18 01/14/18 18:59 06:59 18:59 Intake Total 1222.5 / 1222.5 262.5 / 262.5 1999 Output Total 1000 / 1000 Balance 222.5 / 222.5 262.5 / 262.5 1999 Intake: IV 262.5 / 262.5 262.5 / 262.5 1000 / 1000 NS Inj 1,000 ML @ 84 mls/hr IV. 1000 / 1000 CONT .[id number] [facility] Rx#:[id number] Vancomycin Inj 1,250 MG In NS 262.5 / 262.5 262.5 / 262.5 Inj 250 ML @ 250 mls/hr IV.SIG Q18H [facility] Rx#:[id number] Oral 960 / 960 Other 1000 / 1000 Output: Urine 1000 / 1000 Other: Other Intake Source Saline Solution Laboratory Results - last 24 hr 01/14/18 01/14/18 01/14/18 08:00 11:47 15:38 POC Glucose 184 H 163 H 160 H 01/14/18 17:57 POC Glucose 161 H Microbiology 01/10/18 15:30 Aerobic Blood Culture - Preliminary Blood - Peripheral No growth in 4 days Anaerobic Blood Culture - Preliminary No growth in 4 days 01/10/18 15:25 Aerobic Blood Culture - Preliminary Blood - Peripheral No growth in 4 days Anaerobic Blood Culture - Preliminary No growth in 4 days
[2018-01-14] MEDS: Gabapentin 100 MG Capsule PO SCH (21:58)
[2018-01-14 22:11] LABS: Hematocrit 30.3 % (39.0-51.0); Hemoglobin 9.8 gm/dL (13.0-17.0); Mean Corpuscular HGB Conc 32.4 % (32.0-36.0); Mean Corpuscular Hemoglobin 24.3 pg (27.0-34.0); Mean Platelet Volume 7.6 fL (7.0-11.0); Platelet Count 584 th/mm3 (150-450); Red Blood Count 4.04 mil/mm3 (4.50-5.90); White Blood Count 13.9 th/mm3 (4.0-11.0)
[2018-01-14] MEDS: Temazepam 15 MG Capsule PO PRN (23:09)
[2018-01-14] MEDS: Acetaminophen 325 MG Tablet PO PRN (23:09)
[2018-01-15] MEDS: Sod Chloride 0.9% Inj 1,000 ML IV.CONT SCH ×5 (02:45→16:44)
--- NOTE | 2018-01-15 07:13 | P.PNFP ---
Subjective Interval history: Found in bed, States foot feeling better Denies CP, SOB Results - Labs Result diagrams: 01/14/18 21:13 01/15/18 05:09 Abnormal lab results 01/14/18 01/14/18 01/14/18 Range/Units 08:00 11:47 15:38 WBC (4.0-11.0) th/mm3 RBC (4.50-5.90) mil/mm3 Hgb (13.0-17.0) gm/dL Hct (39.0-51.0) % MCV (80.0-100.0) fL MCH (27.0-34.0) pg Plt Count (150-450) th/mm3 Estimated GFR (>89) mL/min POC Glucose 184 H 163 H 160 H (68-110) mg/dl 01/14/18 01/14/18 01/14/18 Range/Units 17:57 20:16 21:13 WBC 13.9 H (4.0-11.0) th/mm3 RBC 4.04 L (4.50-5.90) mil/mm3 Hgb 9.8 L (13.0-17.0) gm/dL Hct 30.3 L (39.0-51.0) % MCV 75.0 L (80.0-100.0) fL MCH 24.3 L (27.0-34.0) pg Plt Count 584 H (150-450) th/mm3 Estimated GFR (>89) mL/min POC Glucose 161 H 204 H (68-110) mg/dl 01/15/18 Range/Units 05:09 WBC (4.0-11.0) th/mm3 RBC (4.50-5.90) mil/mm3 Hgb (13.0-17.0) gm/dL Hct (39.0-51.0) % MCV (80.0-100.0) fL MCH (27.0-34.0) pg Plt Count (150-450) th/mm3 Estimated GFR 81 L (>89) mL/min POC Glucose (68-110) mg/dl Short CBC 01/14/18 Range/Units 21:13 WBC 13.9 H (4.0-11.0) th/mm3 Hgb 9.8 L (13.0-17.0) gm/dL Hct 30.3 L (39.0-51.0) % Plt Count 584 H (150-450) th/mm3 BMP 01/15/18 05:09 Creatinine 0.92 - Imaging Ankle X-Ray 01/10/18 00:00 CONCLUSION: 1. Soft tissue tissue prominence with no acute fracture or malalignment. 2. Small spur off the inferior calcaneus. Extremity Arterial Study 01/10/18 00:00 CONCLUSION: 1. Findings consistent with moderate to severe bilateral, right greater than left, lower extremity peripheral arterial disease. 2. There is a large component of small vessel disease. Aorta w/Runoff CTA 01/11/18 13:58 CONCLUSION: 1. Diffuse arteriosclerotic disease from the mid aorta to the calves with numerous short segment areas of narrowing. There is flow seen to the ankles bilaterally. The 2 areas of greatest narrowing are just above the aortic bifurcation and above the trifurcation in the right leg,, both having stenotic lesions of 70%.. Physical Exam Vital signs: Vital Signs 01/14/18 08:00 01/14/18 11:30 01/14/18 11:45 Temperature 98.8 F 98.0 F Pulse Rate 101 H 63 60 Respiratory Rate 18 18 20 Blood Pressure 156/75 H 159/77 H 149/78 H Pulse Oximetry 98 93 L 92 L 01/14/18 12:00 01/14/18 12:30 01/14/18 13:00 Temperature Pulse Rate 59 L 55 L 57 L Respiratory Rate 18 18 20 Blood Pressure 157/72 H 150/70 H 156/58 H Pulse Oximetry 94 L 93 L 95 01/14/18 13:30 01/14/18 14:00 01/14/18 17:43 Temperature 98.5 F Pulse Rate 61 57 L 58 L Respiratory Rate 20 20 14 Blood Pressure 155/65 H 166/64 H 172/75 H Pulse Oximetry 94 L 93 L 97 01/14/18 20:00 01/15/18 00:00 Temperature 98 F 98.3 F Pulse Rate 60 61 Respiratory Rate 18 18 Blood Pressure 145/67 H 155/70 H Pulse Oximetry 95 96 Intake & Output 01/14/18 01/15/18 01/15/18 18:59 06:59 18:59 Intake Total 1999 262.5 / 262.5 Balance 1999 262.5 / 262.5 Intake: IV 1000 / 1000 262.5 / 262.5 NS Inj 1,000 ML @ 84 mls/hr IV. 1000 / 1000 CONT .[id number] [facility] Rx#:[id number] Vancomycin Inj 1,250 MG In NS 262.5 / 262.5 Inj 250 ML @ 250 mls/hr IV.SIG Q18H [facility] Rx#:[id number] Other 1000 / 1000 Other: Other Intake Source Saline Solution # Voids 2 Date of Last Bowel Movement 01/10/18 - Constitutional no acute distress - Routine HEENT Exam Eye: Present: PERRL ENT: Present: mucous membranes moist - Routine Neck Exam Present: supple - Routine Respiratory Exam Present: CTA bilaterally - Routine Cardiovascular Exam Present: S1, S2 - Routine Abdominal Exam Present: soft, normoactive bowel sounds - Routine Extremities Exam Comments: RLE toes warm - Routine Skin Exam Present: dry, warm Comments: Dressing to RLE, C/D/I - Routine Neurological Exam Present: alert - Routine Psychiatric Exam Present: cooperative Assessment and Plan - Assessment (1) Diabetic infection of right foot Code(s): E11.628 - Type 2 diabetes mellitus with other skin complications; L08.9 - Local infection of the skin and subcutaneous tissue, unspecified Status: Acute Plan: IV vanc, Pharmacy is dosing Podiatry and ID following (2) Diabetes Code(s): E11.9 - Type 2 diabetes mellitus without complications Status: Acute Plan: Monitor BS, Cont home medications. (3) HTN (hypertension) Code(s): I10 - Essential (primary) hypertension Status: Acute Plan: Cont home medications, Titrate as needed (4) COPD (chronic obstructive pulmonary disease) Code(s): J44.9 - Chronic obstructive pulmonary disease, unspecified Status: Acute Plan: Stable on room air, cont to monitor (5) Blood coagulation disorder Code(s): D68.9 - Coagulation defect, unspecified Status: Acute Plan: On Coumadin, cont home medications. Monitor INR - Assessment and Plan 01/10/18- Uneventful night reported.Foot looks better today not quite as red. Patient voices pain has decreased. INR 1.1, he is bridged with lovenox for Coagulation disorder. Will increase Coumadin. Cont to monitor Will DC to SNF on Iv antibiotics once arrangement made, PT eval today. 01/11/18 - Podiatry consult noted. They are obtaining vascular study and will consult Vascular Surgery if needed. He remains on antibiotics per ID recommendation. Will cont to monitor closely and follow daily. 01/13/18- Seen in room, he is half way out the bed, He denies any CP, SOB. RLE wrapped in rashida bandage, toes warm. Patient seen By Vascular CTA showing 70-80% popliteal stenosis on the right. According to noted no candidate for surgical intervention, balloon angioplasty being considered. He is being followed by ID, BC negative, RLE wound MRSA he is on Vanco and Levaquin. 01/14/18- Not seen in IR for procedure 01/15/18- Feeling good this am. IR yesterday for percutaneous balloon angioplasty of the right leg inflow and outflow system. Per vascular notes There is still high risk for below-knee amputation at some point left leg will have to be addressed as well. His Toes are warm, he denies pain. IV abtibiotics , for Cellulitis culture + MRSA. ID following. Podiatry notes indicate they will provide supportive care, patient will follow Outpatient. Inr subtherapeutic , on 5 mg he is bridged with Lovenox. Will adjust. Likely DC tomorrow to Rehab if consults agree. (2) Diabetes Qualifiers: Diabetes mellitus type: type 2 Diabetes mellitus complication status: with skin complications
[2018-01-15] MEDS: Insulin NovoLIN Regular Correctional Sugar Inj SQ SCH ×4 (09:54→22:39)
[2018-01-15] MEDS: glipiZIDE 5 MG Tablet PO SCH (09:55)
[2018-01-15] MEDS: Furosemide 40 MG Tablet PO SCH (09:55)
[2018-01-15] MEDS: Senna/Docusate Sodium 8.6/50 MG Tablet PO SCH ×2 (09:55→22:31)
[2018-01-15] MEDS: amLODIPine 10 MG Tablet PO SCH (09:55)
[2018-01-15] MEDS: Atenolol 25 MG Tablet PO SCH (09:56)
[2018-01-15] MEDS: Enoxaparin Inj 40 MG/0.4 ML Syringe SQ SCH (09:56)
[2018-01-15] MEDS: hydroCHLOROthiazide 25 MG Tablet PO SCH (09:56)
[2018-01-15] MEDS: oxyCODONE/Acetaminophen 10/325 Tablet PO PRN (13:31)
[2018-01-15] MEDS: Vancomycin Inj 1,250 MG in Sodium Chlor 0.9% Inj 250 ML IV.SIG SCH (13:32)
--- NOTE | 2018-01-15 14:17 | P.PNID ---
Subjective Remarks: is a 72-year-old male, brought into the hospital for further evaluation of pain, redness on his right lower extremity. Patient lives by himself. He seemed that he noted itching on his right foot about a week prior to admission. He started scratching, and about several days after he noticed it he started developing redness on his right foot. It progressively worsened. He was seen by his pain doctor about 5 days prior to admission, and it is unclear what kind of medication was given to the patient. He has not any fever chills or sweats. He had fallen one time, but could not remember whether he had a wound or scrape that resulted from that fall. The redness started getting worse, and he was getting more pain so he was brought into the hospital for further evaluation and treatment. His initial white count was 16,000. He has had low-grade temps of about 100. Infectious disease consultation has been requested to evaluate the patient. Notes reviewed One low grade temps Had revascularization procedure done by IR C/O ankle pain R WBC lower BC negative Wound C/S MRSA Creatinine better No rash No diarrhea Antibiotics: Vanco IV Levaquin Lines: Lines ok Past Medical History: COPD (chronic obstructive pulmonary disease) Diabetes Heart attack CAD Hypertension Osteomyelitis of ankle Hx stent coronaries Allergies/Adverse Reactions: Allergies acetaminophen Allergy (Severe, Verified 01/08/18 12:39) Tachycardia throat swelling Patient given dose had SOB and Tachycardia that passed, previously got dose 12 /9 AM without any reaction, 12/10 AM experienced the SOB and Tachycardia. i asked pt about tylenol allergy and he said he gets throat swelling. codeine Allergy (Severe, Verified 01/10/18 12:45) Rash propoxyphene Allergy (Severe, Verified 01/10/18 12:45) Nausea/Vomiting Objective Vital Signs 01/14/18 17:43 01/14/18 20:00 01/15/18 00:00 Temperature 98.5 F 98 F 98.3 F Pulse Rate 58 L 60 61 Respiratory Rate 14 18 18 Blood Pressure 172/75 H 145/67 H 155/70 H Pulse Oximetry 97 95 96 01/15/18 04:00 01/15/18 08:00 01/15/18 12:00 Temperature 98.1 F 98.9 F 100.0 F H Pulse Rate 67 79 59 L Respiratory Rate 18 12 16 Blood Pressure 152/72 H 171/72 H 154/69 H Pulse Oximetry 96 93 L 96 Intake & Output 01/14/18 01/15/18 01/15/18 18:59 06:59 18:59 Intake Total 1999 262.5 / 262.5 Balance 1999 262.5 / 262.5 Weight 77.111 kg Intake: IV 1000 / 1000 262.5 / 262.5 NS Inj 1,000 ML @ 84 mls/hr IV. 1000 / 1000 CONT .[id number] [facility] Rx#:[id number] Vancomycin Inj 1,250 MG In NS 262.5 / 262.5 Inj 250 ML @ 250 mls/hr IV.SIG Q18H [facility] Rx#:[id number] Other 1000 / 1000 Other: Other Intake Source Saline Solution # Voids 2 Date of Last Bowel Movement 01/10/18 01/10/18 15:30 Blood - Peripheral Aerobic Blood Culture - Final No growth in 5 days 01/10/18 15:30 Blood - Peripheral Anaerobic Blood Culture - Final No growth in 5 days 01/10/18 15:25 Blood - Peripheral Aerobic Blood Culture - Final No growth in 5 days 01/10/18 15:25 Blood - Peripheral Anaerobic Blood Culture - Final No growth in 5 days 01/10/18 15:30 Wound - Ankle Gram Stain - Final 01/10/18 15:30 Wound - Ankle Wound Culture - Final S. aureus MRSA Lab - Hematology Results 01/13/18 01/14/18 14:07 21:13 WBC 17.9 H 13.9 H RBC 4.23 L 4.04 L Hgb 10.1 L 9.8 L Hct 31.9 L 30.3 L MCV 75.4 L 75.0 L MCH 23.9 L 24.3 L MCHC 31.7 L 32.4 RDW 17.1 17.0 Plt Count 581 H D 584 H MPV 7.6 7.6 Lab - Chemistry Results 01/13/18 01/13/18 01/14/18 14:07 18:15 08:00 Sodium 135 L Potassium 3.7 Chloride 98 Carbon Dioxide 31.7 Anion Gap 5 BUN 28 H Creatinine 1.12 Estimated GFR 65 L POC Glucose 149 H 184 H Random Glucose 205 H Calcium 8.3 L 01/14/18 01/14/18 01/14/18 11:47 15:38 17:57 Sodium Potassium Chloride Carbon Dioxide Anion Gap BUN Creatinine Estimated GFR POC Glucose 163 H 160 H 161 H Random Glucose Calcium 01/14/18 01/15/18 01/15/18 20:16 05:09 07:28 Sodium Potassium Chloride Carbon Dioxide Anion Gap BUN Creatinine 0.92 Estimated GFR 81 L POC Glucose 204 H 163 H Random Glucose Calcium 01/15/18 11:56 Sodium Potassium Chloride Carbon Dioxide Anion Gap BUN Creatinine Estimated GFR POC Glucose 239 H Random Glucose Calcium Imaging: ITS Impressions Ankle X-Ray 01/10/18 00:00 CONCLUSION: 1. Soft tissue tissue prominence with no acute fracture or malalignment. 2. Small spur off the inferior calcaneus. Extremity Arterial Study 01/10/18 00:00 CONCLUSION: 1. Findings consistent with moderate to severe bilateral, right greater than left, lower extremity peripheral arterial disease. 2. There is a large component of small vessel disease. Aorta w/Runoff CTA 01/11/18 13:58 CONCLUSION: 1. Diffuse arteriosclerotic disease from the mid aorta to the calves with numerous short segment areas of narrowing. There is flow seen to the ankles bilaterally. The 2 areas of greatest narrowing are just above the aortic bifurcation and above the trifurcation in the right leg,, both having stenotic lesions of 70%.. Physical Exam: GENERAL: Well-nourished well-developed, NAD SKIN: Cool and dry, no generalized rash EYES: Pupils equal round and reactive. Scleral icterus. No injection or drainage. No petechia ENT: No nasal drainage, moist oral mucosa NECK: Trachea midline. Supple, nontender, no meningeal signs. CARDIOVASCULAR: HS audible. RESPIRATORY: Clear to auscultation bilaterally. GASTROINTESTINAL: Abdomen soft nontender. MUSCULOSKELETAL: Right lower extremity with FLOR[place] wrap in place, with improving edema. Has purpuric changes in his R leg. Ulcer is clean, oozing seroud fluid NEUROLOGICAL: Alert oriented 3. Nonfocal. Psych cooperative IV line sites ok. Assessment and Plan - Plan Impression Cellulitis RLE (foot and leg), possibly entry is wound on his ankle - better - wound C/S MRSA Possible sepsis due to cellulitis RLE, resolved PVD RLE Known DM Previous Rx osteo L ankle, looks resolved clinically CAD, previous RI, and coronary artery stenting Recommendation Stop IV vanco Stop Levaquin Clindamycin x 10 days Monitor progress Elevate leg if feasible Wound care per podiatry
--- NOTE | 2018-01-15 14:45 | P.PNVS ---
Subjective Subjective/Hospital Course: Patient seen, full consult dictated Will follow Billie Ryan 01/13/2018 As noted in my history and physical exam this patient has combination of inflow and outflow disease in both legs. CTA confirms the same noting that patient has aortoiliac arthrosclerotic changes and then common femoral superficial femoral artery disease narrowings in the range of 50-60% throughout but not hemodynamically significant. The only narrowing this probably is hemodynamically significant is the 70-80% popliteal stenosis on the right. Again, as noted in my history and physical this patient is not a candidate for any major vascular reconstructions due to his severe comorbidities and medical issues but he may be a candidate for balloon angioplasty. We will discuss with interventional radiology and see which way we can best help this gentleman. 01/14/2018 Patient underwent successful percutaneous balloon angioplasty of the right leg inflow and outflow system. Foot is warm and patient has strong dopplerable popliteal pulses postdilatation This is the best we can do right now for the patient and no other improvement of blood supply can be generated, giving patient the best chance for healing. There is still high risk for below-knee amputation in this unfortunate gentleman depending on how he does with his podiatry surgery At some point left leg will have to be addressed but I would allow patient to recover from this first 01/15/2018 Patient doing much better since angioplasty of the right leg inflow and outflow tract and angioplasty of distal popliteal artery stenosis Foot is nice and warm patient has dopplerable distal pulses Patient feels subjectively much better and says the foot hurts much less Agree with podiatry that patient is doing very well at this time Nothing to add from vascular point. He will need angioplasty of the left side at some point in the future but this is not urgent issue and we should first see how the right side heals up. From my point patient can be discharged any time Objective Vital Signs / I&O: Vital Signs 01/14/18 17:43 01/14/18 20:00 01/15/18 00:00 Temperature 98.5 F 98 F 98.3 F Pulse Rate 58 L 60 61 Respiratory Rate 14 18 18 Blood Pressure 172/75 H 145/67 H 155/70 H Pulse Oximetry 97 95 96 01/15/18 04:00 01/15/18 08:00 01/15/18 12:00 Temperature 98.1 F 98.9 F 100.0 F H Pulse Rate 67 79 59 L Respiratory Rate 18 12 16 Blood Pressure 152/72 H 171/72 H 154/69 H Pulse Oximetry 96 93 L 96 Intake & Output 01/14/18 01/15/18 01/15/18 18:59 06:59 18:59 Intake Total 1999 262.5 / 262.5 Balance 1999 262.5 / 262.5 Weight 77.111 kg Intake: IV 1000 / 1000 262.5 / 262.5 NS Inj 1,000 ML @ 84 mls/hr IV. 1000 / 1000 CONT .[id number] [facility] Rx#:[id number] Vancomycin Inj 1,250 MG In NS 262.5 / 262.5 Inj 250 ML @ 250 mls/hr IV.SIG Q18H [facility] Rx#:[id number] Other 1000 / 1000 Other: Other Intake Source Saline Solution # Voids 2 Date of Last Bowel Movement 01/10/18 Laboratory Results - last 24 hr 01/14/18 01/14/18 01/14/18 15:38 17:57 20:16 WBC RBC Hgb Hct MCV MCH MCHC RDW Plt Count MPV Creatinine Estimated GFR POC Glucose 160 H 161 H 204 H 01/14/18 01/15/18 01/15/18 21:13 05:09 07:28 WBC 13.9 H RBC 4.04 L Hgb 9.8 L Hct 30.3 L MCV 75.0 L MCH 24.3 L MCHC 32.4 RDW 17.0 Plt Count 584 H MPV 7.6 Creatinine 0.92 Estimated GFR 81 L POC Glucose 163 H 01/15/18 11:56 WBC RBC Hgb Hct MCV MCH MCHC RDW Plt Count MPV Creatinine Estimated GFR POC Glucose 239 H Microbiology 01/10/18 15:30 Aerobic Blood Culture - Final Blood - Peripheral No growth in 5 days Anaerobic Blood Culture - Final No growth in 5 days 01/10/18 15:25 Aerobic Blood Culture - Final Blood - Peripheral No growth in 5 days Anaerobic Blood Culture - Final No growth in 5 days
[2018-01-15 15:50] LABS: INR 1.4 Ratio
[2018-01-15] MEDS: Gabapentin 100 MG Capsule PO SCH (22:31)
[2018-01-16] MEDS: Sod Chloride 0.9% Inj 1,000 ML IV.CONT SCH ×4 (01:27→12:16)
--- NOTE | 2018-01-16 08:24 | P.DS ---
Date of admission: 01/08/18 16:08 Primary care physician: Reza Del Rio MD Attending physician on discharge: Frederic Land date of discharge: 01/16/18 Brief History from admission: This patient complains of infection in his right lower leg. Duration 1 week. Severity is moderate. He is diabetic. He denies injury. Over the last week it has become gradually more reddened and swollen and warm and has drained some stuff. No fever. No alleviating factors. No exacerbating factors. DS: Diagnosis - Discharge Diagnosis (1) Diabetic infection of right foot Status: Acute (2) Diabetes Status: Acute (3) HTN (hypertension) Status: Acute (4) COPD (chronic obstructive pulmonary disease) Status: Acute (5) Blood coagulation disorder Status: Acute DS: Summary Hospital Course: Admitted for cellulitis, ID consulted. BC negative. RLE wound culture + MRSA. Trated with IV Vanco and Levaquin. Vascular consulted, Podiatry consulted. Patient found to have significant stenosis to B/L LE. 01/14/18 Percutaneous balloon angioplasty of the right leg inflow and outflow system completed with good result. He Will need left in future. He will be DC on Po Clindamycin. - Time Spent with Patient Total time spent providing and/or coordinating discharge services: 30 Less than 30 minutes - Quality: AMI Clinical Trial Participant: No - Quality: Stroke Symptom Onset Unknown: No - Quality: VTE Deep Vein Thrombosis/Pulmonary Embolism Present on Admission: No Exam Vital signs: Vital Signs 01/15/18 12:00 01/15/18 17:00 01/15/18 21:50 Temperature 100.0 F H 98.7 F 98.1 F Pulse Rate 59 L 58 L 60 Respiratory Rate 16 14 18 Blood Pressure 154/69 H 148/70 H 160/67 H Pulse Oximetry 96 99 90 L 01/16/18 00:15 01/16/18 03:55 01/16/18 05:00 Temperature 98.8 F 98 F Pulse Rate 66 68 Respiratory Rate 19 18 18 Blood Pressure 165/70 H Pulse Oximetry 91 L 91 L Intake & Output 01/15/18 01/16/18 01/16/18 18:59 06:59 18:59 Intake Total 262.5 / 262.5 1300 / 1300 Output Total 1100 / 1100 Balance 262.5 / 262.5 200 / 200 Weight 77.5 kg Intake: IV 262.5 / 262.5 Vancomycin Inj 1,250 MG In NS 262.5 / 262.5 Inj 250 ML @ 250 mls/hr IV.SIG Q18H [facility] Rx#:[id number] Oral 1300 / 1300 Output: Urine 1100 / 1100 Other: # Incontinent Voids 1 # Bowel Movements 0 - Constitutional no acute distress - Routine HEENT Exam ENT: Present: mucous membranes moist Results Procedures completed during hospitalization: 01/14/18 percutaneous balloon angioplasty of the right leg inflow and outflow system. Labs on day of discharge: Labs from last 24 hours 01/16/18 01/15/18 01/15/18 07:31 20:25 16:49 PT INR POC Glucose 218 H 287 H 256 H 01/15/18 01/15/18 14:55 11:56 PT 14.0 H INR 1.4 POC Glucose 239 H - Impressions ITS Impressions Ankle X-Ray 01/10/18 00:00 CONCLUSION: 1. Soft tissue tissue prominence with no acute fracture or malalignment. 2. Small spur off the inferior calcaneus. Extremity Arterial Study 01/10/18 00:00 CONCLUSION: 1. Findings consistent with moderate to severe bilateral, right greater than left, lower extremity peripheral arterial disease. 2. There is a large component of small vessel disease. Aorta w/Runoff CTA 01/11/18 13:58 CONCLUSION: 1. Diffuse arteriosclerotic disease from the mid aorta to the calves with numerous short segment areas of narrowing. There is flow seen to the ankles bilaterally. The 2 areas of greatest narrowing are just above the aortic bifurcation and above the trifurcation in the right leg,, both having stenotic lesions of 70%.. Ankle X-Ray 01/10/18 00:00 CONCLUSION: 1. Soft tissue tissue prominence with no acute fracture or malalignment. 2. Small spur off the inferior calcaneus. Extremity Arterial Study 01/10/18 00:00 CONCLUSION: 1. Findings consistent with moderate to severe bilateral, right greater than left, lower extremity peripheral arterial disease. 2. There is a large component of small vessel disease. Aorta w/Runoff CTA 01/11/18 13:58 CONCLUSION: 1. Diffuse arteriosclerotic disease from the mid aorta to the calves with numerous short segment areas of narrowing. There is flow seen to the ankles bilaterally. The 2 areas of greatest narrowing are just above the aortic bifurcation and above the trifurcation in the right leg,, both having stenotic lesions of 70%.. Discharge Plan - Discharge Disposition Patient Disposition: 03 Discharge to SNF - Discharge Condition Condition: Stable - Discharge Order Discharge Orders: Discharge Order (Routine); Ordered 01/12/18 Ordered By: Cody Self - Discharge Details Anticipated Discharge Date: 01/16/18 Discharge Comment: He will go to a [employer] doctor at [facility] to assume his care. - Physicians Team Primary Care Provider: Reza Del Rio Attending Provider: Frederic Vincent Other Providers: Smitha Bone ; Bri Landry MD ; Alba Valdez DPM ; [facility],[place] ; Justice Jolly MD
[2018-01-16] MEDS: Atenolol 25 MG Tablet PO SCH (09:23)
[2018-01-16] MEDS: amLODIPine 10 MG Tablet PO SCH (09:23)
[2018-01-16] MEDS: hydroCHLOROthiazide 25 MG Tablet PO SCH (09:23)
[2018-01-16] MEDS: Insulin NovoLIN Regular Correctional Sugar Inj SQ SCH ×2 (09:23→12:17)
[2018-01-16] MEDS: Furosemide 40 MG Tablet PO SCH (09:23)
[2018-01-16] MEDS: Enoxaparin Inj 40 MG/0.4 ML Syringe SQ SCH (09:24)
[2018-01-16] MEDS: Senna/Docusate Sodium 8.6/50 MG Tablet PO SCH (09:24)
[2018-01-16] MEDS: glipiZIDE 5 MG Tablet PO SCH (09:24)
--- NOTE | 2018-01-16 10:01 | IR ---
EXAM DATE: 01/14/2018 12:14 PM EDT AGE/SEX: 72 years / Male INDICATIONS: Patient presents with SFA narrowing and popliteal stenosis in right leg. In need of int erventions. CLINICAL DATA: This is the patient's initial encounter. Patient reports that signs and symptoms have been present for 3 months and indicates a pain score of 10/10. MEDICAL/SURGICAL HISTORY: Chronic obstructive pulmonary disease. Diabetes mellitus type II. H ypertension. Osteomyelitis . Heart artery stent COMPARISON: [facility], ANKLE COMPLETE RIGHT MIN 3V, 01/10/2018. . FLUORO TIME (min): 23:11 IMAGE SERIES: 18 ACCESS SITE: Left femoral artery SEDATION TIME (min): 60 CONTRAST (cc): 90cc Visipaque (iodixanol) MEDICATION(S): 250mcg fentanyl (Sublimaze) IV 2mg lorazepam (Ativan) IV 7000units Heparin IV 25mg Benadryl 30mg Protamine DEVICE(S): Right superficial femoral artery [employer] Balloon [id number] Charbel Right popliteal artery [employer] balloon [id number] Hadley Right evs tech tibial artery [employer] balloon [id number] Hadley Left common femoral artery Vascade 5F VCS Closure Right popliteal and tibioperoneal trunk CSI device rotational atherectomy . . PROCEDURE : 1. Ultrasound-guided puncture of the access site. 2. Conscious sedation with continuous EKG and Oximetry monitoring. 3. Pelvic angiogram 4. Selective catheter placement in the contralateral right common femoral artery with right lower ex tremity runoff 5. Recanalization of chronically occluded right below knee popliteal artery and tibioperoneal trunk 6. Rotational atherectomy and balloon angioplasty of the right below knee popliteal artery and tibio peroneal trunk 7. Balloon angioplasty of right SFA 8. Left lower extremity runoff through existing left femoral sheath. The risks, benefits and alternatives to the procedure were explained and verbal and written consent w as obtained. The site was prepped in sterile fashion. Full sterile technique was used, including ca p, mask, sterile gloves and gown and a large sterile sheet. Hand hygiene and 2% chlorhexidine and/or betadine/alcohol prep was utilized per protocol for cutaneous antisepsis. Sterile gel and sterile p robe cover were utilized for ultrasound guidance. The skin and subcutaneous tissues were infiltrated with local anesthetic solution. With ultrasound and fluoroscopic guidance the selected artery was punctured and a vascular sheath was placed. Flush catheter was advanced into the distal aorta and pelvic angiography was performed. Cath eter was then advanced into the contralateral right common femoral artery and right dorsalis runoff w as performed. Sheath was subsequently exchanged for a 5 Czech 45 cm sheath which was placed in the c ontralateral right SFA origin. 4 Czech glide catheter and Glidewire were then advanced into the popl iteal artery and following multiple manipulations successfully advanced through the occluded below kn ee popliteal artery and tibioperoneal trunk. Small amount contrast was injected demonstrating intralu jennifer positioning in the posterior tibial artery. Wire was subsequently exchange for a 0.014" wire an d rotational atherectomy was performed utilizing all 3 speeds with the CSI atherectomy device. 3 x 10 0 mm continuity balloon was then utilized to perform angioplasty of the below knee popliteal and tibi operoneal trunk. Follow-up angiography demonstrated excellent radiographic result. Next, decision was made to angioplasty the focal SFA lesions in the proximal and distal SFA. This was accomplished with 5 x 20 mm Charbel balloon. Follow-up angiography demonstrated excellent result. The wires and ansley ters were then removed. The puncture site was closed with Vascade closure device manual pressure and hemostasis was obtained. The patient tolerated the procedure well and there were no complications. Conscious sedation was performed with the prescribed dosages and duration as above in the presence of an independent trained radiology nurse to assist in the monitoring of the patient. EKG and oximetry remained stable throughout the procedure. FINDINGS: Pelvic angiogram: Diffusely calcified bilateral iliac arteries. Mild stenosis of the right common harsh ac artery origin secondary to eccentric plaque. 2 cm length moderate stenosis of the left mid to dist al left external iliac artery. Right lower extremity runoff: Tandem focal [id number] stenosis of the proximal SFA which is dif fusely calcified. Tandem mild stenosis of the distal SFA near the abductor canal. Occlusion of the be low knee popliteal artery. Anterior tibial artery appears occluded in the proximal calf and there is occlusion of the distal tibioperoneal trunk with recanalization of the peroneal and posterior tibial arteries via collaterals. Following atherectomy and balloon angioplasty there is excellent in-line fl ow to the peroneal and posterior tibial arteries. Left lower extremely runoff: Diffusely calcified SFA with tandem mild stenoses in the proximal to mid thigh. Posterior tibial artery is patent. Diffuse runoff disease with suboptimal visualization. Anibal bee the anterior tibial artery appears occluded in the proximal calf and there is diffuse tibioperon eal trunk with likely peroneal runoff. CONCLUSION: 1. 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 There is now excellent in- line flow to the posterior tibial and peroneal arteries. 2. Diffusely diseased right SFA with tandem [id number] stenoses proximally and mild stenoses d istally. Good angiographic result following 5 mm balloon angioplasty. 3. Focal mild stenosis of the right common iliac artery origin. No intervention was performed. 4. Approximately 2 cm length moderate stenosis of the left mid to distal external iliac artery. No i ntervention was performed as there are tentative plans for left lower extremity intervention - trying to avoid working through freshly placed stent. 5. No significant outflow stenosis on the left. 6. Diffuse runoff disease on the left with likely discontinuous peroneal runoff. Electronically signed by: Alexander Posada MD 01/16/2018 9:59 AM EDT
[2018-01-16 11:18] LABS: INR 1.3 Ratio; Prothrombin Time 12.7 sec (9.8-11.6)
== END 2018-01-16 15:22 ==
LOC: NEPE 10:52 → NEDA 16:08 → N05 19:42
PROVIDERS: ADMIT Family Medicine; ATTEND Family Medicine